=== PATIENT | male | born 1945 | race Caucasian/White ===

== ENCOUNTER 2017-01-15 07:51 | Emergency (ER) | payer MEDICARE, OTHER ==
[~2017-01-15] VITALS: Ht 162.6 cm; Wt 95.5 kg
[~2017-01-15 07:51] MED LIST: CARV80CP5 PO; CLON0.2T5 PO; LEVEM; NOV; PANT40TA3; PRAS10TA6; RAMI10TA
[2017-01-15] MEDS ORDERED: OXYMETAZOLINE 0.05% 15 ML NAS SPRAY NASAL ONE (08:00)
[2017-01-15 08:02] VITALS: Ht 162.6 cm; Wt 95.5 kg
[2017-01-15 08:42] LABS: BASOPHILS % 0.5 % (0.0-2.0); EOSINOPHILS # 0.1 10^3/ul (0.0-0.5); EOSINOPHILS % 2.2 % (0.0-7.0); HEMATOCRIT 40.6 % (42.0-52.0); HEMOGLOBIN 13.2 g/dl (14.0-18.0); LYMPHOCYTES # 1.5 10^3/ul (0.8-2.9); LYMPHOCYTES % 25.3 % (15.0-51.0); MEAN CORPUSCULAR HEMOGLOBIN 28.4 pg (29.0-33.0); MEAN CORPUSCULAR HGB CONC 32.5 g/dl (32.0-37.0); MEAN CORPUSCULAR VOLUME 87.3 fl (82.0-101.0); MEAN PLATELET VOLUME 11.6 fl (7.4-10.4); MONOCYTE # 0.5 10^3/ul (0.3-0.9); MONOCYTES % 8.1 % (0.0-11.0); NEUTROPHIL # 3.8 10^3/ul (1.6-7.5); NEUTROPHILS % 63.4 % (39.0-77.0); PLATELET COUNT 147 10^3/UL (140-415); RED BLOOD COUNT 4.65 10^6/ul (4.70-6.10); RED CELL DISTRIBUTION WIDTH 13.9 % (11.5-14.5)
[2017-01-15] MEDS ORDERED: hydrALAzine 20 MG INJ IV ONE (09:00)
[2017-01-15 09:05] LABS: ALBUMIN 3.8 g/dl (3.3-4.9); ALBUMIN/GLOBULIN RATIO 1.02; BILIRUBIN,INDIRECT 0.4 mg/dl (0-1.1); BILIRUBIN,TOTAL 0.4 mg/dl (0.2-1.3); CALCIUM 8.5 mg/dl (8.4-10.2); CREATININE 1.4 mg/dl (0.61-1.24); POTASSIUM 3.9 mmol/L (3.5-5.1); TOTAL PROTEIN 7.5 g/dl (6.1-8.1)
--- NOTE | 2017-01-15 09:06 | ERD ---
ER Documentation Chief Complaint Date/Time DATE: 01/15/17 TIME: 08:57 Chief Complaint NOSEBLEED X1 HOUR HPI This is a 72-year-old male with a history of hypertension and cardiac stents on Eliquis who presents to the emergency department complaining of a bilateral nosebleed that occurred 1 hour prior to arrival. The patient stated he awoke this morning and just prior to brushing his teeth was leaning forward and noticed a significant amount of bright red blood coming from his left nostril. He then stated shortly after he develop a small amount of blood from the right nostril. He denied any sensation of blood within his oropharynx. He states he has never had a history of epistaxis in the past. He denies any easy bruising or bleeding of his gums while brushing his teeth. He denies a headache or weakness. He has no chest pain or pressure that radiates to the neck or back or jaw. Indicates he did not take his antihypertensive medication yesterday as he manually took his blood pressure and it was normal with a systolic of 120/ 80. When he awoke this morning after the epistaxis occurred he took his blood pressure and his systolic blood pressure was elevated at 180. Any changes in vision dizziness or lightheadedness. He denies any hemoptysis hematemesis or melanotic stools. ROS All systems reviewed and are negative except as per history of present illness. Medications Home Meds Reported Medications Carvedilol* (Coreg CR*) 80 Mg Cpmp.24hr, 80 MG PO HS 07/20/11 Clonidine Hcl* (Clonidine Hcl*) 0.2 Mg Tablet, 0.2 MG PO BID Y 07/20/11 Insulin Aspart* (Novolog Insulin Vial*) 100 U/Ml Vial 10/14/10 Insulin Detemir* (Levemir*) 100 U/Ml Vial 10/14/10 Prasugrel Hydrochloride* (Effient*) 10 Mg Tablet 10/14/10 Pantoprazole* (Protonix*) 40 Mg Tablet. 10/14/10 Ramipril (Altace) 10 Mg Tablet 11/21/09 Allergies Allergies: Coded Allergies: No Known Allergy (Unverified , 07/20/11) PMhx/Soc History of Surgery: Yes (5stents.) Anesthesia Reaction: No Hx 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 Disorder: No Hx Respiratory Disorders: No Hx Cardiac Disorders: Yes (HTN, DE.) Hx Psychiatric Problems: No Hx Miscellaneous Medical Probl: Yes (NOSE BLEED) Hx Alcohol Use: No Hx Substance Use: No Hx Tobacco Use: No Smoking Status: Never smoker Physical Exam Vitals Vital Signs Date Time Temp Pulse Resp B/P Pulse Ox O2 Delivery O2 Flow Rate FiO2 01/15/17 09:07 64 16 176/92 96 01/15/17 08:02 98.2 65 16 191/95 96 Physical Exam Constitutional:Well-developed. Well-nourished. HEENT:Normocephalic. Atraumatic.Pupils were equal round reactive to light. Moist mucous membranes.No tonsillar exudates. No blood present within the posterior pharynx. Left epistaxis and no blood present within the right nostril. Neck: No nuchal rigidity. No lymphadenopathy. No posterior cervical spine tenderness or step-offs. Respiratory: Not using accessory muscles of respiration.Lungs were clear to auscultation bilaterally. No rhonchi. No rales. No wheezing. Cardiovascular: Regular rate regular rhythm.No murmurs. No rubs were appreciated.S1, S2 normal. Distal pulses are palpable 2+ bilaterally. GI: Abdomen was soft. Nontender. Non Distended. No pulsatile abdominal masses or bruits. No rebound. No guarding. Bowel sounds were present and normal. Muscle skeletal: Full range of motion of both the upper and lower extremities bilaterally.Normal muscle tone.No assymetrical calf tenderness or swelling. Skin: No petechia, no purpura. No lesions on the palms or the soles of the feet. No maculopapular rash. NEURO: Patient was alert, awake, orientated x3.No facial droop. Gait observed and normal with no ataxia.Speech had regular rate and rhythm. No focal neurological deficits. Result Diagram: 01/15/17 0815 01/15/17 0815 Results 24 hrs Laboratory Tests Test 01/15/17 08:15 White Blood Count 6.010^3/ul Red Blood Count 4.6510^6/ul Hemoglobin 13.2g/dl Hematocrit 40.6% Mean Corpuscular Volume 87.3fl Mean Corpuscular Hemoglobin 28.4pg Mean Corpuscular Hemoglobin Concent 32.5g/dl Red Cell Distribution Width 13.9% Platelet Count 91068^3/UL Mean Platelet Volume 11.6fl Neutrophils % 63.4% Lymphocytes % 25.3% Monocytes % 8.1% Eosinophils % 2.2% Basophils % 0.5% Nucleated Red Blood Cells % 0.0/100WBC Neutrophils # 3.810^3/ul Lymphocytes # 1.510^3/ul Monocytes # 0.510^3/ul Eosinophils # 0.110^3/ul Basophils # 0.010^3/ul Nucleated Red Blood Cells # 0.010^3/ul Sodium Level 141mmol/L Potassium Level 3.9mmol/L Chloride Level 104mmol/L Carbon Dioxide Level 29mmol/L Anion Gap 12 Blood Urea Nitrogen 19mg/dl Creatinine 1.40mg/dl Glucose Level 171mg/dl Calcium Level 8.5mg/dl Total Bilirubin 0.4mg/dl Direct Bilirubin 0.00mg/dl Indirect Bilirubin 0.4mg/dl Aspartate Amino Transf (AST/SGOT) 25IU/L Alanine Aminotransferase (ALT/SGPT) 34IU/L Alkaline Phosphatase 73IU/L Total Protein 7.5g/dl Albumin 3.8g/dl Globulin 3.70g/dl Albumin/Globulin Ratio 1.02 Current Medications Medications (Trade) Dose Ordered Sig/Luis Route PRN Reason Start Time Stop Time Status Last Admin Dose Admin Oxymetazoline HCl (Afrin [place]) 2 spray ONCE ONCE NASAL 01/15/17 08:00 01/15/17 08:01 DC 01/15/17 08:30 Hydralazine HCl (Apresoline) 10 mg ONCE ONCE IV 01/15/17 09:00 01/15/17 09:01 DC 01/15/17 09:11 Procedures/MDM Patient presented to the emergency department physical exam findings suggestive of anterior unilateral epistaxis. Afrin nasal spray was used as a vasoconstrictor and an anterior Rhino Rocket was placed into the left nostril. The epistaxis resolved. There is no blood present within the posterior pharynx. This patient presented to the emergency department with severely elevated blood pressure. My differential diagnosis included but was not limited to conditions that could end-organ damage such as acute coronary syndrome, acute pulmonary edema, aortic dissection, subarachnoid hemorrhage, intracerebral hemorrhage, cerebral infarction, withdrawal syndromes from beta blockers, or states of catecholamine excess such as pheochromocytoma or drug intoxication. Ancillary lab work was obtained. There was no elevation in the BUN and creatinine to suggest acute renal failure. Electrolytes were normal. Given that the patient had an absence of cerebral, ocular, cardiac or renal damage the hypertensive urgency was treated with IV agents in the emergency room with improvement of the patient's blood pressure. The patient likely appeared to be complaint with primary care physician and will follow up with their PCP in the next 24-48 hours. They were instructed to return to the emergency department at anytime if there is any worsening of their condition such as development of chest pain or a headache. They were instructed to resume previous medication regimen or initiate a suitable medication regimen under care of the PCP to enable proper monitoring for drug reactions. The patient was also informed on the adverse side effects and adverse drug interactions of the medications prescribed to them by myself. The patient gave informed consent to the prescription of the new medication. The patient's PCP Dr. Cha who kindly stated he will follow-up with the patient in this. Departure Diagnosis: Primary Impression: Epistaxis Additional Impression: Hypertensive urgency Condition: JENNIFER Caruso Jan 15, 2017 09:06
[2017-01-15 09:43] LABS: INR 1.02; PROTIME 13.4 Sec (12.2-14.2)
[2017-01-15 09:44] LABS: PARTIAL THROMBOPLASTIN TIME 26.3 Sec (25.0-35.0)
[2017-01-15 11:26] VITALS: BP 149/75; PULSE 60; RESP 18
== END 2017-01-15 12:22 | disposition home or self-care (01) ==
LOC: E/R 07:51
DX: R04.0 Epistaxis (principal); I16.0 Hypertensive urgency; I10 Essential (primary) hypertension; Z79.4 Long term (current) use of insulin; Z98.61 Coronary angioplasty status
CPT/HCPCS: 80053; 85025; 85610; 85730; 96374; 99284; J0360

== ENCOUNTER 2018-08-11 06:49 | Inpatient (IN) | payer MEDICARE, OTHER ==
[~2018-08-11] VITALS: Ht 165.1 cm; Wt 114.8 kg
[2018-08-11] VITALS (21 sets, daily range): BP systolic 138–182; BP diastolic 67–141; PULSE 63–76; RESP 14–25; Ht 165.1 cm; Wt 114.8 kg
[~2018-08-11 06:49] MED LIST changes: -CARV80CP5 PO; +[UNRECOGNIZED DRUG - CODE] PO
[2018-08-11] MEDS ORDERED: AMLO5TAB4 PO (08:03)
[2018-08-11] MEDS ORDERED: ROSU40TA35 PO (08:03)
[2018-08-11] MEDS ORDERED: APIX5TAB PO (08:04)
[2018-08-11] MEDS ORDERED: [UNRECOGNIZED DRUG - CODE] PO (08:04)
[2018-08-11] MEDS ORDERED: CLON-379 PO (08:04)
[2018-08-11] MEDS ORDERED: POTA10TA37 PO (08:05)
[2018-08-11] MEDS ORDERED: ASPI81TA52 PO (08:05)
[2018-08-11] MEDS ORDERED: FURO40TA4 PO (08:05)
[2018-08-11] MEDS ORDERED: INSU100I27 SQ (08:06)
[2018-08-11] MEDS ORDERED: NOVO3I SC (08:07)
[2018-08-11] MEDS ORDERED: LIDOCAINE 1% (MDV) 20 ML INJ ONE (08:25)
[2018-08-11] MEDS ORDERED: IODIXANOL LOCM 100 ML BTL ONE (08:25)
[2018-08-11] MEDS ORDERED: HEPARIN 1000 UNITS/ML 10 ML INJ ONE (08:25)
[2018-08-11] MEDS ORDERED: FENTAnyl 50 MCG/ML VIAL ONE ×2 (08:26→08:27)
[2018-08-11] MEDS ORDERED: MIDAZOLAM 1 MG/ML 2 ML INJ ONE (08:27)
[2018-08-11] MEDS ORDERED: VERAPAMIL 5 MG INJ ONE (08:29)
[2018-08-11] MEDS ORDERED: NITROGLYCERIN (IC) 100 MCG/ML INJ ONE (08:30)
[2018-08-11] MEDS ORDERED: hydrALAzine 20 MG INJ ONE (08:30)
--- NOTE | 2018-08-11 09:21 | OPR ---
Date/Time of Note Date/Time of Note DATE: 08/11/18 TIME: 09:20 Operative Report Procedure Date: Aug 11, 2018 Preoperative Diagnosis dyspnea, CHF, abnormal stress test Postoperative Diagnosis same. 3 vessel CAD Operation/Procedure Performed see details Surgeon see signature line Tool And Die Maker Level Five none Anesthesia Type: moderate sedation Estimated Blood Loss: minimal Transfusion none Specimen none Grafts/Implants none Complications none Procedure Description Procedure Date:08/11/18 Youth Teacher/surgeon:Jeramie Vela MD. Procedures Performed: 1)Left heart catheterization with selective left and right coronary angiography. Pre-operative Diagnosis:dyspnea, CHF, abnormal Lexiscan Post-operative Diagnosis: same, three vessel CAD Indications: 73 yo M with a h/o CAD s/p multiple prior PCIs, chronic diastolic CHF, recent left femoral DVT on Eliquis, CKD (baseline Cr 1.6), DM, HTN,HL, who has been having exertional dyspnea and recurrent CHF exacerbations. Lexiscan showed mild anterior and inferolateral ischemia but also TID for which cardiac cath was discussed and pt/family agreeable. Description of Procedure: After informed consent, the patient was brought to the cardiac catheterization lab. The procedure site was prepped and draped in usual manner. The patient was premedicated with versed 1mg. 3 mL lidocaine was injected into the right wrist. Next using the posterior wall technique, the 6/5 solomon islander sheath was inserted into the right radial artery. Next using the JL3.5 and JR4, selective angiography of the left and right coronary arteries were obtained. The pigtail was then advanced into the ventricle and hemodynamics obtained. Left ventricle angiography was not obtained. Next all equipment was removed and hemostasis was obtained by TR band. Findings: Anatomy/Hemodynamics: Left main:ostial 30-40% LAD: long prox to mid stent with mid 90% ISR, immediately after stent 50% Diagonal: 2 small diagonals both very small and with severe diffuse disease Circumflex: prox long 70% Obtuse marginal:luminal irregularities Ramus: prox tandem 70% lesions RCA:prox 40% followed by patent prox stent followed by mid 70-80% PDA: prox long 60% PLV:bifurcating vessel with lower branch ostial 99% LV angiography:not done LV-Ao: no gradient LVEDP:30 mmHg Contrast used:60 mL Fluoroscopy time: 5.2 min Estimated blood loss<10 mL. Specimen: none Grafts/implants: none Complications: none Assessment: CAD: s/p multiple prior PCIs. Cath 08/11/18 with multivessel disease which would be most appropriate for CABG eval in setting of DM Acute on chronic diastolic CHF: still mildly overloaded on exam and by EDP Recent left femoral DVT: on Eliquis as outpt. Held for procedure. Will give lovenox in the interim CKD (baseline Cr 1.6) DM HT HL Plan: -admit for inpt CABG eval -ASA -hold Eliquis, start lovenox 1mg/kg daily with CKD -lipitor 40mg -coreg cr 40mg -amlodipine 5mg -lasix 20mg IV x1, then 40mg PO daily JERAMIE VELA Aug 11, 2018 09:21
[2018-08-11] MEDS ORDERED: FUROSEMIDE 20 MG INJ IV ONE (12:00)
[2018-08-11] MEDS ORDERED: hydrALAzine 20 MG INJ IV PRN (12:00)
[2018-08-11] MEDS: AMLODIPINE 5 MG TAB PO SCH (13:17)
[2018-08-11] MEDS: ASPIRIN 81 MG TAB PO SCH (13:17)
[2018-08-11] MEDS ORDERED: NACL 0.9% 3 ML SYG IV SCH (14:00)
[2018-08-11] MEDS: ENOXAPARIN 60 MG/0.6 ML SYG SC SCH (15:00)
--- NOTE | 2018-08-11 15:29 | HP ---
Date/Time of Note Date/Time of Note DATE: 08/11/18 TIME: 15:20 Assessment/Plan VTE Prophylaxis SCD applied (from Nsg): Yes SCD contraindicated: DVT Pharmacological prophylaxis: LMWH Lines/Catheters IV Catheter Type (from Nrsg): Peripheral IV Central line still needed: No Urinary Cath still in place: No Reason Cath still needed: urinary retention Assessment/Plan Assessment/Plan 1. Ischemic heart disease angina three-vessel coronary artery disease planned CABG. 2. Hypertension with congestive heart failure diastolic. 3. Diabetes mellitus type 2 blood sugar better controlled. On to receive a 20 units 11 PM NovoLog 15-20 units before each meal. 4. History of whole cystitis and pancreatitis 5. Chronic kidney disease with baseline creatinine being 1.6 there was a number of being also 1.8 after having the diarrhea. 6. Dyslipidemia better controlled 7. History of nasal bleeding recurrent 8. Morbid obesity with snoring and apnea and daytime sleepiness 9. BPH with nocturia 10. Low back pain with radiculopathy 11. 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 Status post cataract ectomy 13. Diabetic nephropathy retinopathy and angiopathy and neuropathy. 14. Constipation 15. Grief reaction after the of her 16. Gastroesophageal reflux disease 17. Deep venous thrombosis of the left saphenous vein, 2-3 months ago; currently on Eliquis 5 mg twice daily 18. Gastritis 19. COPD. Quit smoking 6 years ago. 20. History of nephrolithiasis. Result Diagram: 08/11/18 0730 08/11/18 0730 Results 24hrs Laboratory Tests Test 08/11/18 07:30 08/11/18 07:33 White Blood Count 6.4 Red Blood Count 4.51 L Hemoglobin 12.9 L Hematocrit 40.7 L Mean Corpuscular Volume 90.2 Mean Corpuscular Hemoglobin 28.6 L Mean Corpuscular Hemoglobin Concent 31.7 L Red Cell Distribution Width 14.6 H Platelet Count 137 L Mean Platelet Volume 11.7 H Immature Granulocytes % 0.500 H Neutrophils % 62.9 Lymphocytes % 24.3 Monocytes % 8.3 Eosinophils % 3.5 Basophils % 0.5 Nucleated Red Blood Cells % 0.0 Immature Granulocytes # 0.030 Neutrophils # 4.0 Lymphocytes # 1.5 Monocytes # 0.5 Eosinophils # 0.2 Basophils # 0.0 Nucleated Red Blood Cells # 0.0 Prothrombin Time 13.1 Prothrombin Time Ratio 1.0 INR International Normalized Ratio 0.98 Activated Partial Thromboplast Time 25.3 Sodium Level 144 Potassium Level 4.5 Chloride Level 105 Carbon Dioxide Level 29 Anion Gap 10 Blood Urea Nitrogen 24 H Creatinine 1.65 H Est Glomerular Filtrat Rate mL/min Glucose Level 134 Calcium Level 9.2 Bedside Glucose 120 HPI/ROS Admit Date/Time Admit Date/Time Aug 11, 2018 at 09:20 Hx of Present Illness The patient known to me with outpatient visits underwent cardiac workup. Patient was found to have severe coronary artery disease three-vessel plan to undergo CABG. now he is also congested with mild elevation of her creatinine 1.6. ROS Constitutional: nausea, weight change; No no complaints, No improved, No chills, No diaphoresis, No disoriented, No fatigue, No febrile, No poor po, No other Eyes: No no complaints, No pain, No discharge, No redness, No visual change, No other ENT: No no complaints, No bleeding, No pain, No congestion, No discharge, No dysphagia, No sore throat, No other Respiratory: cough, shortness of breath; No no complaints, No pain, No pleuritic pain, No sputum, No wheezing, No other Cardiovascular: edema, lightheadedness, orthopenea, palpitations; No no complaints, No chest pain, No paroxysmal nocturnal dyspnea, No other Gastrointestinal: constipation, passing stool; No no complaints, No pain, No blood, No decreased appetite, No diarrhea, No flatus, No nausea, No vomiting, No other Genitourinary: dysuria; No no complaints, No bleeding, No discharge, No flank pain, No hematuria, No other Musculoskeletal: back pain, bone/joint pain, neck pain; No no complaints, No restricted range of motion, No swelling, No other Skin: No no complaints, No bruising, No erythema, No laceration, No pruritis, No rash, No skin lesions, No other Neurologic: headache; No no complaints, No confusion, No dizziness, No focal-weakness, No syncope, No seizure, No other Endocrine: polyuria, polydypsia, dry skin; No no complaints, No temp intolerance, No weight change, No other Lymphatic: No no complaints, No adenopathy, No tender nodes, No lymphadema, No other Psychological: anxiety; No no complaints, No nl mood/affect, No confusion, No depression, No suicidal, No other Immunologic: No no complaints, No immunodeficiency, No pruritis, No rhinitis, No urticaria, No other PMH/Family/Social Past Medical History Medical History: angina, congestive heart failure, coronary artery disease, deep vein thrombosis, diabetes, diverticulitis, gallstones, GERD, high cholesterol, hypertension, pancreatitis, renal disease, urinary tract infection Medications Current Medications Carvedilol (Coreg Cr) 40 mg DAILY PO ; Start 08/12/18 at 09:00 Amlodipine Besylate (Norvasc) 5 mg DAILY PO Last administered on 08/11/18at 13:17; Admin Dose 5 MG; Start 08/11/18 at 13:00 Aspirin (Aspirin) 81 mg DAILY PO Last administered on 08/11/18at 13:17; Admin Dose 81 MG; Start 08/11/18 at 13:00 Enoxaparin Sodium (Lovenox) 115 mg Q24H SC ; Start 08/11/18 at 12:00 Atorvastatin Calcium (Lipitor) 40 mg HS PO ; Start 08/11/18 at 21:00 Hydralazine HCl (Apresoline) 10 mg Q4H PRN IV SBP >170; Start 08/11/18 at 12:00 Furosemide (Lasix) 40 mg DAILY PO ; Start 08/12/18 at 09:00 Coded Allergies: No Known Allergy (Unverified , 08/11/18) Past Surgical History Past Surgical Hx: angioplasty (2003 and 2010.), endoscopy Family History Significant Family History: COPD, diabetes, hypertension Social History Alcohol Use: rarely Smoking Status: Never smoker Drug Use: none Exam/Review of Systems Vital Signs Vitals Vital Signs Date Temp Pulse Resp B/P (MAP) Pulse Ox O2 O2 Flow FiO2 Time Delivery Rate 08/11/18 97.4 64 16 160/75 98 Room Air 07:53 (103) Exam Constitutional: alert, oriented, well developed, frail Psych: nl mood/affect, anxiety, depression (History of.); No no complaints, No confusion, No suicidal, No other Head: No normocephalic, No atraumatic, No lacerations, No hematomas, No other Eyes: nl conjunctiva, EOMI, nl lids, PERRL, icteric, fundi, disc, other (Status post cataract ectomy changes bilaterally with mild periorbital edema.) ENMT: No nl external ears & nose, No nl lips & teeth, No nl nasal mucosa & septum, No mucosa pink and moist, No intubated, No tympanic membranes, No other Neck: jvd, thyromegaly, nuchal rigidity; No supple, No non-tender, No bruits, No masses, No other Respiratory: clear to auscultation, normal air movement; No congested cough, No crackles/rales, No diminished breath sounds, No intercostal retraction, No labored breathing, No respirations, No tactile fremitus, No wheezing, No other Cardiovascular: regular rate and rhythm, nl pulses, edema (2+ bilaterally.), jugular venous distention (JVD); No bruits, No diastolic murmur, No gallop, No irregular rhythm, No murmurs/extra sounds, No rub, No systolic murmur, No S3, No S4, No other Gastrointestinal: soft, nl liver, spleen, bowel sounds, distended, rebound or guarding, other (Palpation reveals subcutaneous hardness possible effect of insulin injection and or subcutaneous lipomas that are painless no erythema.); No non-tender, No ascites, No firm, No hepatomegaly, No mass, No splenomegaly, No surgical scars, No tender Genitourinary - Male: nl penis, nl scrotum; No CVA tenderness, No discharge, No other Genitourinary - Female: No nl adnexae, No nl external genitalia, No CMT, No CVA tenderness, No uterus, No other Musculoskeletal: nl gait and stance, joint tenderness, muscle tone, muscle weakness; No nl extremities to inspection, No range of motion, No spine non-tender, No swelling, No other Extremities: normal pulses, edema; No calf tenderness, No cyanosis, No clubbing, No pitting pedal edema, No palpable cord, No tenderness, No other 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: CORPORATE CONTROLLER II-XII intact, numbness; No nl mental status, No nl speech, No nl strength, No confused, No DTR's symmetric, No focal weakness, No lethargic, No reflexes, No unresponsive, No other Skin: nl turgor; No rash or lesions, No diaphoresis, No ecchymosis, No laceration, No puncture, No other Lymph: nl lymph nodes; No enlarged, No nontender, No other NERIS BROTHERS MD Aug 11, 2018 15:29
--- NOTE | 2018-08-11 15:47 | CONS ---
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 I explained to him the risks, benefits and alternatives of surgery. The risks are but not limited to bleeding, infection, stroke, IA, renal and respiratory failure and . His STS risks of mortality is around 2%. I will order carotids and plan for surgery Saturday if creatinine stable. Consultation Date/Type/Reason Admit Date/Time Aug 11, 2018 at 09:20 Date of Consultation: Aug 11, [address] surgery Reason for Consultation eval for cabg Requesting Provider: ALONDRA GILBERT Date/Time of Note DATE: 08/11/18 TIME: 15:40 Hx of Present Illness 73 year old male with history of CAD previous PCI and stenting, DM, HTN underwent cath for progressive dyspnea. His cath shows 3V CAD with in stent stenosis. He denies palpitations or chest pressure. He can only walk 50 ft before having to rest and then his dyspnea goes away. Constitutional: no complaints, improved Eyes: no complaints ENT: no complaints Respiratory: shortness of breath Cardiovascular: paroxysmal nocturnal dyspnea Gastrointestinal: no complaints Genitourinary: no complaints Musculoskeletal: no complaints Skin: no complaints Neurologic: no complaints Endocrine: no complaints Lymphatic: no complaints Psychological: no complaints, nl mood/affect Immunologic: no complaints Past Medical History Medical History: angina, congestive heart failure, coronary artery disease, deep vein thrombosis, diabetes, diverticulitis, gallstones, GERD, high cholesterol, hypertension, pancreatitis, renal disease, urinary tract infection Home Meds Reported Medications Insulin Aspart* (Novolog Insulin Pen*) 100 Unit/Ml Soln, 0 SC .SLIDING SCALE AC, EA AC MEALS 08/11/18 Insulin Detemir (Levemir Flextouch) 100 Unit/1 Ml Insuln.pen, 25 UNIT SQ QHS, EA 08/11/18 Potassium Chloride* (K-Dur*) 10 Meq Tab.prt.sr, 10 MEQ PO DAILY, TAB 08/11/18 Furosemide* (Furosemide*) 40 Mg Tablet, 40 MG PO DAILY, TAB 08/11/18 Aspirin (Low Dose Aspirin) 81 Mg Tablet.dr, 81 MG PO DAILY, #30 TAB 08/11/18 Apixaban* (Eliquis*) 5 Mg Tablet, 5 MG PO BID, TAB 08/11/18 Clonidine Hcl* (Clonidine Hcl*) 0.1 Mg Tab, 0.1 MG PO DAILY PRN for ELEVATED BLOOD PRESSURE, TAB 08/11/18 Carvedilol* (Coreg CR*) 40 Mg Capsr, 40 MG PO DAILY, #30 CAP 08/11/18 Rosuvastatin Calcium* (Crestor*) 40 Mg Tablet, 40 MG PO QHS, #30 TAB 08/11/18 Amlodipine Besylate* (Norvasc*) 5 Mg Tablet, 5 MG PO DAILY, TAB 08/11/18 Discontinued Reported Medications Carvedilol* (Coreg CR*) 80 Mg Cpmp.24hr, 80 MG PO HS 07/20/11 Clonidine Hcl* (Clonidine Hcl*) 0.2 Mg Tablet, 0.2 MG PO BID PRN 07/20/11 Insulin Aspart* (Novolog Insulin Vial*) 100 U/Ml Vial 10/14/10 Insulin Detemir* (Levemir*) 100 U/Ml Vial 10/14/10 Prasugrel Hydrochloride* (Effient*) 10 Mg Tablet 10/14/10 Pantoprazole* (Protonix*) 40 Mg Tablet. 10/14/10 Ramipril (Altace) 10 Mg Tablet 11/21/09 Medications Current Medications Carvedilol (Coreg Cr) 40 mg DAILY PO ; Start 08/12/18 at 09:00 Amlodipine Besylate (Norvasc) 5 mg DAILY PO Last administered on 08/11/18at 13:17; Admin Dose 5 MG; Start 08/11/18 at 13:00 Aspirin (Aspirin) 81 mg DAILY PO Last administered on 08/11/18at 13:17; Admin Dose 81 MG; Start 08/11/18 at 13:00 Enoxaparin Sodium (Lovenox) 115 mg Q24H SC ; Start 08/11/18 at 12:00 Atorvastatin Calcium (Lipitor) 40 mg HS PO ; Start 08/11/18 at 21:00 Hydralazine HCl (Apresoline) 10 mg Q4H PRN IV SBP >170; Start 08/11/18 at 12:00 Furosemide (Lasix) 40 mg DAILY PO ; Start 08/12/18 at 09:00 Allergies: Coded Allergies: No Known Allergy (Unverified , 08/11/18) Past Surgical History Past Surgical Hx: angioplasty (2003 and 2010.), endoscopy Family History Significant Family History: no pertinent family hx Social History Alcohol Use: rarely Smoking Status: Never smoker Drug Use: none Exam/Review of Systems Exam Vitals Vital Signs Date Temp Pulse Resp B/P (MAP) Pulse Ox O2 O2 Flow FiO2 Time Delivery Rate 08/11/18 97.4 64 16 160/75 98 Room Air 07:53 (103) Constitutional: alert, oriented, well developed Psych: no complaints, nl mood/affect Head: normocephalic, atraumatic Eyes: nl conjunctiva, EOMI, nl lids, nl sclera, PERRL ENMT: nl external ears & nose, nl lips & teeth, nl nasal mucosa & septum Neck: supple, non-tender Cardiovascular: regular rate and rhythm, nl pulses Gastrointestinal: soft, nl liver, spleen, non-tender Musculoskeletal: nl extremities to inspection, nl gait and stance Extremities: normal pulses Skin: nl turgor; No rash or lesions Lymph: nl lymph nodes Results Result Diagram: 08/11/18 0730 08/11/18 0730 Results 24hrs Laboratory Tests Test 08/11/18 07:30 08/11/18 07:33 White Blood Count 6.4 Red Blood Count 4.51 L Hemoglobin 12.9 L Hematocrit 40.7 L Mean Corpuscular Volume 90.2 Mean Corpuscular Hemoglobin 28.6 L Mean Corpuscular Hemoglobin Concent 31.7 L Red Cell Distribution Width 14.6 H Platelet Count 137 L Mean Platelet Volume 11.7 H Immature Granulocytes % 0.500 H Neutrophils % 62.9 Lymphocytes % 24.3 Monocytes % 8.3 Eosinophils % 3.5 Basophils % 0.5 Nucleated Red Blood Cells % 0.0 Immature Granulocytes # 0.030 Neutrophils # 4.0 Lymphocytes # 1.5 Monocytes # 0.5 Eosinophils # 0.2 Basophils # 0.0 Nucleated Red Blood Cells # 0.0 Prothrombin Time 13.1 Prothrombin Time Ratio 1.0 INR International Normalized Ratio 0.98 Activated Partial Thromboplast Time 25.3 Sodium Level 144 Potassium Level 4.5 Chloride Level 105 Carbon Dioxide Level 29 Anion Gap 10 Blood Urea Nitrogen 24 H Creatinine 1.65 H Est Glomerular Filtrat Rate mL/min Glucose Level 134 Calcium Level 9.2 Bedside Glucose 120 Medications Medication Current Medications Carvedilol (Coreg Cr) 40 mg DAILY PO ; Start 08/12/18 at 09:00 Amlodipine Besylate (Norvasc) 5 mg DAILY PO Last administered on 08/11/18at 13:17; Admin Dose 5 MG; Start 08/11/18 at 13:00 Aspirin (Aspirin) 81 mg DAILY PO Last administered on 08/11/18at 13:17; Admin Dose 81 MG; Start 08/11/18 at 13:00 Enoxaparin Sodium (Lovenox) 115 mg Q24H SC ; Start 08/11/18 at 12:00 Atorvastatin Calcium (Lipitor) 40 mg HS PO ; Start 08/11/18 at 21:00 Hydralazine HCl (Apresoline) 10 mg Q4H PRN IV SBP >170; Start 08/11/18 at 12:00 Furosemide (Lasix) 40 mg DAILY PO ; Start 08/12/18 at 09:00 LESIA DANIELLE MD Aug 11, 2018 15:47
[2018-08-11] MEDS ORDERED: CEFAZOLIN 2 GM/50 ML (PMX) 50 ML IVPB ONE (16:00)
--- NOTE | 2018-08-11 18:00 | CONS ---
Assessment/Plan Assessment/Plan Assessment/Plan (Daily) 1. acute kidney injury vs possible baseline CKD II with Cr 1.65 2. 3 V CAD- plan for CABG 3. H/o HTN 4. H/o HL 5. H/o DM II 6. H/o CAD with previous stent placement Plan: pt is admitted to iCU stop IV lasix diuresis, Cr 1.65- with CKD stage II Plan for CABG as per CT surgery as per ACTS- pt has a risk of <1% SOCORRO requiring renal placement therapy - ok to have CT surgery , we will closely monitor his renal function thanks Dr. Estrada for consultation, I will continue to follow up along with Cardiology, CT surgery and PMD service Consultation Date/Type/Reason Admit Date/Time Aug 11, 2018 at 09:20 Date of Consultation: Aug 11, 2018 Type of Consult NEPHROLOGY Reason for Consultation Acute kidney injury Requesting Provider: NERIS BROTHERS MD Date/Time of Note DATE: 08/11/18 TIME: 17:58 Hx of Present Illness 73 M with PMHx of HTN< HL< who was found to have 3 V CAD on CATH and planned to have CABG, he is noted to have Cr 1.65 with BUN 45- Renal has been consulted for SOCORRO on CKD vs SOCORRO. no H/o kidney stone, , no h/o Kidney disease as per patient, BP stable, no family h/o CKD Eyes: no complaints ENT: no complaints Respiratory: no complaints Cardiovascular: chest pain Gastrointestinal: no complaints Genitourinary: no complaints Musculoskeletal: no complaints Skin: no complaints Neurologic: no complaints Endocrine: no complaints Lymphatic: no complaints Psychological: no complaints Immunologic: no complaints Past Medical History Medical History: angina, congestive heart failure, coronary artery disease, deep vein thrombosis, diabetes, diverticulitis, gallstones, GERD, high cholesterol, hypertension, pancreatitis, renal disease, urinary tract infection Home Meds Reported Medications Insulin Aspart* (Novolog Insulin Pen*) 100 Unit/Ml Soln, 0 SC .SLIDING SCALE AC, EA AC MEALS 08/11/18 Insulin Detemir (Levemir Flextouch) 100 Unit/1 Ml Insuln.pen, 25 UNIT SQ QHS, EA 08/11/18 Potassium Chloride* (K-Dur*) 10 Meq Tab.prt.sr, 10 MEQ PO DAILY, TAB 08/11/18 Furosemide* (Furosemide*) 40 Mg Tablet, 40 MG PO DAILY, TAB 08/11/18 Aspirin (Low Dose Aspirin) 81 Mg Tablet., 81 MG PO DAILY, #30 TAB 08/11/18 Apixaban* (Eliquis*) 5 Mg Tablet, 5 MG PO BID, TAB 08/11/18 Clonidine Hcl* (Clonidine Hcl*) 0.1 Mg Tab, 0.1 MG PO DAILY PRN for ELEVATED BLOOD PRESSURE, TAB 08/11/18 Carvedilol* (Coreg CR*) 40 Mg Capsr, 40 MG PO DAILY, #30 CAP 08/11/18 Rosuvastatin Calcium* (Crestor*) 40 Mg Tablet, 40 MG PO QHS, #30 TAB 08/11/18 Amlodipine Besylate* (Norvasc*) 5 Mg Tablet, 5 MG PO DAILY, TAB 08/11/18 Discontinued Reported Medications Carvedilol* (Coreg CR*) 80 Mg Cpmp.24hr, 80 MG PO HS 07/20/11 Clonidine Hcl* (Clonidine Hcl*) 0.2 Mg Tablet, 0.2 MG PO BID PRN 07/20/11 Insulin Aspart* (Novolog Insulin Vial*) 100 U/Ml Vial 10/14/10 Insulin Detemir* (Levemir*) 100 U/Ml Vial 10/14/10 Prasugrel Hydrochloride* (Effient*) 10 Mg Tablet 10/14/10 Pantoprazole* (Protonix*) 40 Mg Tablet. 10/14/10 Ramipril (Altace) 10 Mg Tablet 11/21/09 Medications Current Medications Carvedilol (Coreg Cr) 40 mg DAILY PO ; Start 08/12/18 at 09:00 Amlodipine Besylate (Norvasc) 5 mg DAILY PO Last administered on 08/11/18at 13:17; Admin Dose 5 MG; Start 08/11/18 at 13:00 Aspirin (Aspirin) 81 mg DAILY PO Last administered on 08/11/18at 13:17; Admin Dose 81 MG; Start 08/11/18 at 13:00 Enoxaparin Sodium (Lovenox) 115 mg Q24H SC Last administered on 08/11/18at 15:00; Admin Dose 115 MG; Start 08/11/18 at 12:00 Atorvastatin Calcium (Lipitor) 40 mg HS PO ; Start 08/11/18 at 21:00 Hydralazine HCl (Apresoline) 10 mg Q4H PRN IV SBP >170; Start 08/11/18 at 12:00 Furosemide (Lasix) 40 mg DAILY PO ; Start 08/12/18 at 09:00 Allergies: Coded Allergies: No Known Allergy (Unverified , 08/11/18) Past Surgical History Past Surgical Hx: angioplasty (2003 and 2010.), endoscopy Social History Alcohol Use: rarely Smoking Status: Never smoker Drug Use: none Exam/Review of Systems Exam Vitals Vital Signs Date Temp Pulse Resp B/P (MAP) Pulse Ox O2 O2 Flow FiO2 Time Delivery Rate 08/11/18 69 16:00 08/11/18 97.4 16 160/75 98 Room Air 07:53 (103) Constitutional: alert Psych: no complaints Head: normocephalic Eyes: nl conjunctiva ENMT: nl external ears & nose Neck: supple Respiratory: clear to auscultation, normal air movement, diminished breath sounds Cardiovascular: regular rate and rhythm, nl pulses Gastrointestinal: soft, non-tender Musculoskeletal: nl extremities to inspection Extremities: normal pulses 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, nl mental status, nl speech, nl strength Skin: nl turgor Lymph: nl lymph nodes Results Result Diagram: 08/11/18 0730 08/11/18 0730 Results 24hrs Laboratory Tests Test 08/11/18 07:30 08/11/18 07:33 White Blood Count 6.4 Red Blood Count 4.51 L Hemoglobin 12.9 L Hematocrit 40.7 L Mean Corpuscular Volume 90.2 Mean Corpuscular Hemoglobin 28.6 L Mean Corpuscular Hemoglobin Concent 31.7 L Red Cell Distribution Width 14.6 H Platelet Count 137 L Mean Platelet Volume 11.7 H Immature Granulocytes % 0.500 H Neutrophils % 62.9 Lymphocytes % 24.3 Monocytes % 8.3 Eosinophils % 3.5 Basophils % 0.5 Nucleated Red Blood Cells % 0.0 Immature Granulocytes # 0.030 Neutrophils # 4.0 Lymphocytes # 1.5 Monocytes # 0.5 Eosinophils # 0.2 Basophils # 0.0 Nucleated Red Blood Cells # 0.0 Prothrombin Time 13.1 Prothrombin Time Ratio 1.0 INR International Normalized Ratio 0.98 Activated Partial Thromboplast Time 25.3 Sodium Level 144 Potassium Level 4.5 Chloride Level 105 Carbon Dioxide Level 29 Anion Gap 10 Blood Urea Nitrogen 24 H Creatinine 1.65 H Est Glomerular Filtrat Rate mL/min Glucose Level 134 Calcium Level 9.2 Bedside Glucose 120 Medications Medication Current Medications Carvedilol (Coreg Cr) 40 mg DAILY PO ; Start 08/12/18 at 09:00 Amlodipine Besylate (Norvasc) 5 mg DAILY PO Last administered on 08/11/18at 13:17; Admin Dose 5 MG; Start 08/11/18 at 13:00 Aspirin (Aspirin) 81 mg DAILY PO Last administered on 08/11/18at 13:17; Admin Dose 81 MG; Start 08/11/18 at 13:00 Enoxaparin Sodium (Lovenox) 115 mg Q24H SC Last administered on 08/11/18at 15:00; Admin Dose 115 MG; Start 08/11/18 at 12:00 Atorvastatin Calcium (Lipitor) 40 mg HS PO ; Start 08/11/18 at 21:00 Hydralazine HCl (Apresoline) 10 mg Q4H PRN IV SBP >170; Start 08/11/18 at 12:00 Furosemide (Lasix) 40 mg DAILY PO ; Start 08/12/18 at 09:00 DARRYL SOOD MD Aug 11, 2018 18:00
[2018-08-11] MEDS ORDERED: GLUCAGON 1 MG INJ IM PRN (18:30)
[2018-08-11] MEDS ORDERED: GLUCOSE GEL 15 GRAM TUBE BUCCAL PRN (18:30)
[2018-08-11] MEDS ORDERED: GLUCOSE GEL 15 GRAM TUBE PO PRN ×2 (18:30)
[2018-08-11] MEDS ORDERED: DEXTROSE 50% 50 ML SYRINGE IV PRN ×2 (18:30)
[2018-08-11] MEDS: FUROSEMIDE 20 MG INJ IV SCH (19:03)
[2018-08-11] MEDS ORDERED: INSULIN GLARGINE [LANTus] (100 UNITS/ML) SYG SC SCH (20:00)
[2018-08-11] MEDS: ATORVASTATIN 40 MG TAB PO SCH (20:53)
[2018-08-12] VITALS (46 sets, daily range): BP systolic 132–182; BP diastolic 62–123; PULSE 63–81; RESP 12–25
[2018-08-12] MEDS: ALBUTEROL/IPRATROPIUM (NEB) 3 ML AMP HHN SCH ×3 (00:25→16:15)
[2018-08-12] MEDS: ACCU-CHEK XX SCH (02:00)
[2018-08-12] MEDS: FUROSEMIDE 20 MG INJ IV SCH (05:32)
--- NOTE | 2018-08-12 08:09 | CONS ---
Assessment/Plan Assessment/Plan Hospital Course (Demo Recall) CAD: s/p multiple prior PCIs. Cath 08/11/18 with multivessel disease. Plan for CABG Acute on chronic diastolic CHF: Diuresed on admission and now euvolemic on my exam Recent left femoral DVT: on Eliquis as outpt. Held for procedure. Will give lovenox in the interim CKD (baseline Cr 1.6. Stable so far DM HT HL -await CABG tomorrow -d/c further lasix for now as euvolemic and to avoid renal dysfunction prior to surgery. Will decide on dosing after surgery -ASA -hold Eliquis, lovenox 1mg/kg daily with CKD -lipitor 40mg -coreg cr 40mg -amlodipine 5mg Consultation Date/Type/Reason Admit Date/Time Aug 11, 2018 at 09:20 Initial Consult Date 08/11/18 Type of Consult Cardiology Requesting Provider: NERIS BROTHERS MD Date/Time of Note DATE: 08/12/18 TIME: 08:07 24 HR Interval Summary Free Text/Dictation No events. Seen by cardiac surgery. No chest pain or SOB. Diuresed well. Exam/Review of Systems Vital Signs Vitals Vital Signs Date Temp Pulse Resp B/P (MAP) Pulse Ox O2 O2 Flow FiO2 Time Delivery Rate 08/12/18 66 12 153/87 92 Nasal 2.0 07:00 (109) Cannula 08/12/18 97.7 04:00 Intake and Output 08/11/18 08/11/18 08/12/18 1515:00 23:00 07:00 IntakeIntake Total 430 ml 0 ml OutputOutput Total 1200 ml 850 ml 450 ml BalanceBalance -1200 ml -420 ml -450 ml Exam Constitutional: alert, oriented Psych: no complaints, nl mood/affect Head: normocephalic, atraumatic Neck: No jvd Respiratory: diminished breath sounds; No clear to auscultation Cardiovascular: regular rate and rhythm; No edema Gastrointestinal: soft, non-tender; No distended 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: nl mental status, nl speech Labs Result Diagram: 08/12/1841908/12/18 042 Results 24hrs Laboratory Tests Test 08/11/18 20:49 08/12/18 01:53 08/12/18 04:20 08/12/18 04:54 Bedside Glucose 141 175 White Blood Count 6.9 Red Blood Count 4.63 L Hemoglobin 13.4 L Hematocrit 40.9 L Mean Corpuscular 88.3 Volume Mean Corpuscular 28.9 L Hemoglobin Mean Corpuscular 32.8 Hemoglobin Concent Red Cell 14.8 H Distribution Width Platelet Count 148 Mean Platelet 11.6 H Volume Immature 0.300 Granulocytes % Neutrophils % 63.8 Lymphocytes % 23.4 Monocytes % 9.6 Eosinophils % 2.5 Basophils % 0.4 Nucleated Red 0.0 Blood Cells % Immature 0.020 Granulocytes # Neutrophils # 4.4 Lymphocytes # 1.6 Monocytes # 0.7 Eosinophils # 0.2 Basophils # 0.0 Nucleated Red 0.0 Blood Cells # Sodium Level 142 Potassium Level 4.0 Chloride Level 103 Carbon Dioxide 30 Level Anion Gap 9 Blood Urea 23 H Nitrogen Creatinine 1.66 H Est Glomerular Filtrat Rate mL/min Glucose Level 193 Calcium Level 9.3 Total Bilirubin 0.6 Direct Bilirubin 0.00 Indirect Bilirubin 0.6 Aspartate Amino 24 Transf (AST/SGOT) Alanine 18 Aminotransferase ( ALT/SGPT) Alkaline 77 Phosphatase Total Protein 7.2 Albumin 4.0 Globulin 3.20 Albumin/Globulin 1.25 Ratio Lab Scanned Report REFERENCE LAB Medications Medications Current Medications Carvedilol (Coreg Cr) 40 mg DAILY PO ; Start 08/12/18 at 09:00 Amlodipine Besylate (Norvasc) 5 mg DAILY PO Last administered on 08/11/18at 13:17; Admin Dose 5 MG; Start 08/11/18 at 13:00 Aspirin (Aspirin) 81 mg DAILY PO Last administered on 08/11/18 13:17; Admin Dose 81 MG; Start 08/11/18 at 13:00 Enoxaparin Sodium (Lovenox) 115 mg Q24H SC Last administered on 08/11/18at 15:00; Admin Dose 115 MG; Start 08/11/18 at 12:00 Atorvastatin Calcium (Lipitor) 40 mg HS PO Last administered on 08/11/18 20:53; Admin Dose 40 MG; Start 08/11/18 at 21:00 Hydralazine HCl (Apresoline) 10 mg Q4H PRN IV SBP >170; Start 08/11/18 at 12:00 Insulin Glargine (Lantus) 15 units DAILY@2000 SC Last administered on 4/22/19at 20:53; Admin Dose 15 UNITS; Start 08/11/18 at 20:00 Diagnostic Test (Pha) (Accu-Chek) 1 ea 02 XX ; Start 08/12/18 at 02:00 Insulin Aspart (Novolog Insulin Pen) 14 unit WITH BREAKFAST SC ; Start 08/12/18 at 07:35 Insulin Aspart (Novolog Insulin Pen) 14 unit WITH LUNCH SC ; Start 08/12/18 at 11:30 Insulin Aspart (Novolog Insulin Pen) 14 unit WITH DINNER SC ; Start 08/12/18 at 17:35 Furosemide (Lasix) 20 mg BID DIURETICS IV Last administered on 08/12/18at 05:32; Admin Dose 20 MG; Start 08/11/18 at 18:00 Albuterol/ Ipratropium (Duoneb) 3 ml Q8H RESP THERAPY HHN Last administered on 08/12/18at 00:25; Admin Dose 3 ML; Start 08/12/18 at 00:00 Miscellaneous Information 1 ea NOTE XX ; Start 08/11/18 at 18:30 Glucose (Glutose) 15 gm Q15M PRN PO DECREASED GLUCOSE; Start 08/11/18 at 18:30 Glucose (Glutose) 22.5 gm Q15M PRN PO DECREASED GLUCOSE; Start 08/11/18 at 18:30 Dextrose (D50w Syringe) 25 ml Q15M PRN IV DECREASED GLUCOSE; Start 08/11/18 at 18:30 Dextrose (D50w Syringe) 50 ml Q15M PRN IV DECREASED GLUCOSE; Start 08/11/18 at 18:30 Glucagon (Glucagen) 1 mg Q15M PRN IM DECREASED GLUCOSE; Start 08/11/18 at 18:30 Glucose (Glutose) 15 gm Q15M PRN BUCCAL DECREASED GLUCOSE; Start 08/11/18 at 18:30 ALONDRA GILBERT Aug 12, 2018 08:09
[2018-08-12] MEDS: CARVEDILOL 40 MG PO SCH (08:51)
[2018-08-12] MEDS: ASPIRIN 81 MG TAB PO SCH (08:52)
[2018-08-12] MEDS: AMLODIPINE 5 MG TAB PO SCH (08:52)
[2018-08-12] MEDS: INSULIN ASPART [NOVOLOG] 3 ML PEN SC SCH (08:55)
[2018-08-12] MEDS ORDERED: FUROSEMIDE 40 MG TAB PO SCH (09:00)
[2018-08-12] MEDS ORDERED: INSULIN ASPART [NOVOLOG] 3 ML PEN SC SCH ×2 (11:30→17:35)
[2018-08-12] MEDS: ENOXAPARIN 60 MG/0.6 ML SYG SC SCH (11:32)
[2018-08-12] MEDS: DOCUSATE SODIUM 100 MG CAP PO SCH ×2 (11:39→20:26)
[2018-08-12] MEDS: POLYETHYLENE GLYCOL 17 GM PACKET PO SCH ×2 (11:39→20:26)
--- NOTE | 2018-08-12 11:47 | CONS ---
Assessment/Plan Assessment/Plan Assessment/Plan (Daily) 1. acute kidney injury vs possible baseline CKD II with Cr 1.65 2. 3 V CAD- plan for CABG 3. H/o HTN 4. H/o HL 5. H/o DM II 6. H/o CAD with previous stent placement Plan: stop IV lasix diuresis, Cr 1.65- with CKD stage II Plan for CABG as per CT surgery will follow up Consultation Date/Type/Reason Admit Date/Time Aug 11, 2018 at 09:20 Initial Consult Date 08/11/18 Type of Consult NEPHROLOGY Requesting Provider: NERIS BROTHERS MD Date/Time of Note DATE: 08/12/18 TIME: 11:47 Exam/Review of Systems Exam Vitals Vital Signs Date Temp Pulse Resp B/P (MAP) Pulse Ox O2 O2 Flow FiO2 Time Delivery Rate 08/12/18 76 13 155/77 92 Room Air 10:30 (103) 08/12/18 21 08:25 08/12/18 98.4 08:00 08/12/18 2.0 07:00 Intake and Output 08/11/18 08/11/18 08/12/18 1414:59 22:59 06:59 IntakeIntake Total 370 ml 60 ml OutputOutput Total 600 ml 1300 ml 450 ml BalanceBalance -600 ml -930 ml -390 ml Exam Constitutional: alert, awake Respiratory: clear to auscultation, normal air movement, diminished breath sounds Cardiovascular: regular rate and rhythm, nl pulses Gastrointestinal: soft, non-tender Musculoskeletal: nl extremities to inspection Extremities: normal pulses 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, nl mental status, nl speech, nl strength Skin: nl turgor Lymph: nl lymph nodes Results Result Diagram: 08/12/1841908/12/18 042 Results 24hrs Laboratory Tests Test 08/11/18 20:49 08/12/18 01:53 08/12/18 04:20 08/12/18 04:54 Bedside Glucose 141 175 White Blood Count 6.9 Red Blood Count 4.63 L Hemoglobin 13.4 L Hematocrit 40.9 L Mean Corpuscular 88.3 Volume Mean Corpuscular 28.9 L Hemoglobin Mean Corpuscular 32.8 Hemoglobin Concent Red Cell 14.8 H Distribution Width Platelet Count 148 Mean Platelet 11.6 H Volume Immature 0.300 Granulocytes % Neutrophils % 63.8 Lymphocytes % 23.4 Monocytes % 9.6 Eosinophils % 2.5 Basophils % 0.4 Nucleated Red 0.0 Blood Cells % Immature 0.020 Granulocytes # Neutrophils # 4.4 Lymphocytes # 1.6 Monocytes # 0.7 Eosinophils # 0.2 Basophils # 0.0 Nucleated Red 0.0 Blood Cells # Sodium Level 142 Potassium Level 4.0 Chloride Level 103 Carbon Dioxide 30 Level Anion Gap 9 Blood Urea 23 H Nitrogen Creatinine 1.66 H Est Glomerular Filtrat Rate mL/min Glucose Level 193 Calcium Level 9.3 Total Bilirubin 0.6 Direct Bilirubin 0.00 Indirect Bilirubin 0.6 Aspartate Amino 24 Transf (AST/SGOT) Alanine 18 Aminotransferase ( ALT/SGPT) Alkaline 77 Phosphatase Total Protein 7.2 Albumin 4.0 Globulin 3.20 Albumin/Globulin 1.25 Ratio Lab Scanned Report REFERENCE LAB Test 08/12/18 08:38 Bedside Glucose 222 H Medications Medication Current Medications Carvedilol (Coreg Cr) 40 mg DAILY PO Last administered on 08/12/18 08:51; Admin Dose 40 MG; Start 08/12/18 at 09:00 Amlodipine Besylate (Norvasc) 5 mg DAILY PO Last administered on 08/12/18 08:5 2; Admin Dose 5 MG; Start 08/11/18 at 13:00 Aspirin (Aspirin) 81 mg DAILY PO Last administered on 08/12/18 08:52; Admin Dose 81 MG; Start 08/11/18 at 13:00 Enoxaparin Sodium (Lovenox) 115 mg Q24H SC Last administered on 08/11/18at 15:00; Admin Dose 115 MG; Start 08/11/18 at 12:00 Atorvastatin Calcium (Lipitor) 40 mg HS PO Last administered on 08/11/18at 20:53; Admin Dose 40 MG; Start 08/11/18 at 21:00 Hydralazine HCl (Apresoline) 10 mg Q4H PRN IV SBP >170; Start 08/11/18 at 12:00 Insulin Glargine (Lantus) 15 units DAILY@2000 SC Last administered on 08/11/18at 20:53; Admin Dose 15 UNITS; Start 08/11/18 at 20:00 Diagnostic Test (Pha) (Accu-Chek) 1 ea 02 XX ; Start 08/12/18 at 02:00 Insulin Aspart (Novolog Insulin Pen) 14 unit WITH BREAKFAST SC Last administered on 08/12/18at 08:55; Admin Dose 14 UNIT; Start 08/12/18 at 07:35 Insulin Aspart (Novolog Insulin Pen) 14 unit WITH LUNCH SC ; Start 08/12/18 at 11:30 Insulin Aspart (Novolog Insulin Pen) 14 unit WITH DINNER SC ; Start 08/12/18 at 17:35 Albuterol/ Ipratropium (Duoneb) 3 ml Q8H RESP THERAPY HHN Last administered on 08/12/18at 08:24; Admin Dose 3 ML; Start 08/12/18 at 00:00 Miscellaneous Information 1 ea NOTE XX ; Start 08/11/18 at 18:30 Glucose (Glutose) 15 gm Q15M PRN PO DECREASED GLUCOSE; Start 08/11/18 at 18:30 Glucose (Glutose) 22.5 gm Q15M PRN PO DECREASED GLUCOSE; Start 08/11/18 at 18:30 Dextrose (D50w Syringe) 25 ml Q15M PRN IV DECREASED GLUCOSE; Start 08/11/18 at 18:30 Dextrose (D50w Syringe) 50 ml Q15M PRN IV DECREASED GLUCOSE; Start 08/11/18 at 18:30 Glucagon (Glucagen) 1 mg Q15M PRN IM DECREASED GLUCOSE; Start 08/11/18 at 18:30 Glucose (Glutose) 15 gm Q15M PRN BUCCAL DECREASED GLUCOSE; Start 08/11/18 at 18:30 Docusate Sodium (Colace) 200 mg BID PO Last administered on 08/12/18at 11:39; Admin Dose 200 MG; Start 08/12/18 at 11:00; Stop 08/12/18 at 22:00 Polyethylene Glycol (Miralax) 17 gm BID PO Last administered on 08/12/18at 11:39; Admin Dose 17 GM; Start 08/12/18 at 11:00; Stop 08/12/18 at 22:00 DARRYL SOOD MD Aug 12, 2018 11:47
--- NOTE | 2018-08-12 12:17 | PN ---
Date/Time of Note Date/Time of Note DATE: 08/12/18 TIME: 12:17 Assessment/Plan Lines/Catheters IV Catheter Type (from Nrs): Peripheral IV Burkett in Place (from Nrs): No Assessment/Plan Assessment/Plan creatinine stable, cabg tomorrow Exam/Review of Systems Vital Signs Vitals Vital Signs Date Temp Pulse Resp B/P (MAP) Pulse Ox O2 O2 Flow FiO2 Time Delivery Rate 08/12/18 76 13 155/77 92 Room Air 10:30 (103) 08/12/18 21 08:25 08/12/18 98.4 08:00 08/12/18 2.0 07:00 Intake and Output 08/11/18 08/11/18 08/12/18 1515:00 23:00 07:00 IntakeIntake Total 430 ml 0 ml OutputOutput Total 1200 ml 850 ml 450 ml BalanceBalance -1200 ml -420 ml -450 ml Results Result Diagram: 08/12/18 0420 08/12/18 0420 LESIA DANIELLE MD Aug 12, 2018 12:17
--- NOTE | 2018-08-12 14:32 | PN ---
Date/Time of Note Date/Time of Note DATE: 08/12/18 TIME: 14:29 Assessment/Plan VTE Prophylaxis Risk score (from Ns)>0 risk: 7 [place]CD applied [place] [facility] [place] SCD contraindicated: low risk/ambulating Pharmacological prophylaxis: LMWH Lines/Catheters IV Catheter Type (from [facility] [place] [employer] line still needed: No Urinary Cath still in place: No Reason Cath still needed: urinary retention Assessment/Plan Assessment/Plan 1. Ischemic heart disease angina three-vessel coronary artery disease planned CABG. 2. Hypertension with congestive heart failure diastolic. 3. Diabetes mellitus type 2 blood sugar better controlled. On to receive a 20 units 11 PM NovoLog 15-20 units before each meal. 4. History of whole cystitis and pancreatitis 5. Chronic kidney disease with baseline creatinine being 1.6 there was a number of being also 1.8 after having the diarrhea. 6. Dyslipidemia better controlled 7. History of nasal bleeding recurrent 8. Morbid obesity with snoring and apnea and daytime sleepiness 9. BPH with nocturia 10. Low back pain with radiculopathy 11. 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 Status post cataract ectomy 13. Diabetic nephropathy retinopathy and angiopathy and neuropathy. 14. Constipation 15. Grief reaction after the of her 16. Gastroesophageal reflux disease 17. Deep venous thrombosis of the left saphenous vein, 2-3 months ago; currently on Eliquis 5 mg twice daily 18. Gastritis 19. COPD. Quit smoking 6 years ago. 20. History of nephrolithiasis. Result Diagram: Result Diagram: 08/12/18 0420 08/12/18 0420 Results 24hrs Laboratory Tests Test 08/11/18 20:49 08/12/18 01:53 08/12/18 04:20 08/12/18 04:54 Bedside Glucose 141 175 White Blood Count 6.9 Red Blood Count 4.63 L Hemoglobin 13.4 L Hematocrit 40.9 L Mean Corpuscular 88.3 Volume Mean Corpuscular 28.9 L Hemoglobin Mean Corpuscular 32.8 Hemoglobin Concent Red Cell 14.8 H Distribution Width Platelet Count 148 Mean Platelet 11.6 H Volume Immature 0.300 Granulocytes % Neutrophils % 63.8 Lymphocytes % 23.4 Monocytes % 9.6 Eosinophils % 2.5 Basophils % 0.4 Nucleated Red 0.0 Blood Cells % Immature 0.020 Granulocytes # Neutrophils # 4.4 Lymphocytes # 1.6 Monocytes # 0.7 Eosinophils # 0.2 Basophils # 0.0 Nucleated Red 0.0 Blood Cells # Sodium Level 142 Potassium Level 4.0 Chloride Level 103 Carbon Dioxide 30 Level Anion Gap 9 Blood Urea 23 H Nitrogen Creatinine 1.66 H Est Glomerular Filtrat Rate mL/min Glucose Level 193 Calcium Level 9.3 Total Bilirubin 0.6 Direct Bilirubin 0.00 Indirect Bilirubin 0.6 Aspartate Amino 24 Transf (AST/SGOT) Alanine 18 Aminotransferase ( ALT/SGPT) Alkaline 77 Phosphatase Total Protein 7.2 Albumin 4.0 Globulin 3.20 Albumin/Globulin 1.25 Ratio Lab Scanned Report REFERENCE LAB Test 08/12/18 08:38 08/12/18 12:22 08/12/18 13:38 Bedside Glucose 222 H 213 223 H Subjective 24 Hr Interval Summary Constitutional: poor po, requiring O2; No no complaints, No improved, No chills, No diaphoresis, No disoriented, No febrile, No requiring IVF, No other Eyes: No no complaints, No pain, No discharge, No redness, No visual change, No other ENT: No no complaints, No bleeding, No pain, No congestion, No discharge, No dysphagia, No sore throat, No other Respiratory: No no complaints, No pain, No cough, No pleuritic pain, No shortness of breath, No sputum, No wheezing, No other Cardiovascular: chest pain, edema, lightheadedness, orthopenea; No no complaints, No palpitations, No paroxysmal nocturnal dyspnea, No other Gastrointestinal: constipation, decreased appetite, flatus, nausea, passing stool; No no complaints, No pain, No blood, No diarrhea, No vomiting, No other Genitourinary: dysuria; No no complaints, No bleeding, No discharge, No flank pain, No hematuria, No other Musculoskeletal: back pain, bone/joint pain; No no complaints, No neck pain, No restricted range of motion, No swelling, No other Skin: pruritis, rash; No no complaints, No bruising, No erythema, No laceration, No skin lesions, No other Neurologic: dizziness, headache; No no complaints, No confusion, No focal-weakness, No syncope, No seizure, No other Endocrine: dry skin; No no complaints, No polyuria, No polydypsia, No temp intolerance, No other Lymphatic: No no complaints, No adenopathy, No tender nodes, No lymphadema, No other Psychological: anxiety; No no complaints, No nl mood/affect, No confusion, No depression, No suicidal, No other Immunologic: No no complaints, No immunodeficiency, No pruritis, No rhinitis, No urticaria, No other Exam/Review of Systems Exam Vitals Vital Signs Date Temp Pulse Resp B/P (MAP) Pulse Ox O2 O2 Flow FiO2 Time Delivery Rate 08/12/18 74 24 148/116 93 Room Air 12:30 (127) 08/12/18 98.4 12:00 08/12/18 21 08:25 08/12/18 2.0 07:00 Intake and Output 08/11/18 08/11/18 08/12/18 1515:00 23:00 07:00 IntakeIntake Total 430 ml 0 ml OutputOutput Total 1200 ml 850 ml 450 ml BalanceBalance -1200 ml -420 ml -450 ml Constitutional: alert, oriented, well developed, distress, frail Psych: anxiety, confusion, depression; No no complaints, No nl mood/affect, No suicidal, No other Head: normocephalic, atraumatic Eyes: EOMI, nl lids, PERRL; No nl conjunctiva, No nl sclera, No icteric, No fundi, disc, No other ENMT: No nl external ears & nose, No nl lips & teeth, No nl nasal mucosa & septum, No mucosa pink and moist, No intubated, No tympanic membranes, No other Neck: jvd, bruits, masses; No supple, No non-tender, No thyromegaly, No nuchal rigidity, No other Respiratory: congested cough, crackles/rales, diminished breath sounds, respirations; No clear to auscultation, No normal air movement, No intercostal retraction, No labored breathing, No tactile fremitus, No wheezing, No other Cardiovascular: regular rate and rhythm; No nl pulses, No bruits, No diastolic murmur, No edema, No gallop, No irregular rhythm, No jugular venous distention (JVD), No murmurs/extra sounds, No rub, No systolic murmur, No S3, No S4, No other Gastrointestinal: nl liver, spleen, bowel sounds, distended; No soft, No non-tender, No ascites, No firm, No hepatomegaly, No mass, No r ebound or guarding, No splenomegaly, No surgical scars, No tender, No other Genitourinary - Male: nl penis, nl scrotum Musculoskeletal: joint tenderness; No nl extremities to inspection, No nl gait and stance, No muscle tone, No muscle weakness, No range of motion, No spine non-tender, No swelling, No other Extremities: No normal pulses, No calf tenderness, No cyanosis, No clubbing, No edema, No pitting pedal edema, No palpable cord, No tenderness, No other 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: [employer] II-XII intact Results Results 24hrs Laboratory Tests Test 08/11/18 20:49 08/12/18 01:53 08/12/18 04:20 08/12/18 04:54 Bedside Glucose 141 175 White Blood Count 6.9 Red Blood Count 4.63 L Hemoglobin 13.4 L Hematocrit 40.9 L Mean Corpuscular 88.3 Volume Mean Corpuscular 28.9 L Hemoglobin Mean Corpuscular 32.8 Hemoglobin Concent Red Cell 14.8 H Distribution Width Platelet Count 148 Mean Platelet 11.6 H Volume Immature 0.300 Granulocytes % Neutrophils % 63.8 Lymphocytes % 23.4 Monocytes % 9.6 Eosinophils % 2.5 Basophils % 0.4 Nucleated Red 0.0 Blood Cells % Immature 0.020 Granulocytes # Neutrophils # 4.4 Lymphocytes # 1.6 Monocytes # 0.7 Eosinophils # 0.2 Basophils # 0.0 Nucleated Red 0.0 Blood Cells # Sodium Level 142 Potassium Level 4.0 Chloride Level 103 Carbon Dioxide 30 Level Anion Gap 9 Blood Urea 23 H Nitrogen Creatinine 1.66 H Est Glomerular Filtrat Rate mL/min Glucose Level 193 Calcium Level 9.3 Total Bilirubin 0.6 Direct Bilirubin 0.00 Indirect Bilirubin 0.6 Aspartate Amino 24 Transf (AST/SGOT) Alanine 18 Aminotransferase ( ALT/SGPT) Alkaline 77 Phosphatase Total Protein 7.2 Albumin 4.0 Globulin 3.20 Albumin/Globulin 1.25 Ratio Lab Scanned Report REFERENCE LAB Test 08/12/18 08:38 08/12/18 12:22 08/12/18 13:38 Bedside Glucose 222 H 213 223 H Medications Medication Current Medications Carvedilol (Coreg Cr) 40 mg DAILY PO Last administered on 08/12/18at 08:51; Admin Dose 40 MG; Start 08/12/18 at 09:00 Amlodipine Besylate (Norvasc) 5 mg DAILY PO Last administered on 08/12/18 08:52; Admin Dose 5 MG; Start 08/11/18 at 13:00 Aspirin (Aspirin) 81 mg DAILY PO Last administered on 08/12/18 08:52; Admin Dose 81 MG; Start 08/11/18 at 13:00 Enoxaparin Sodium (Lovenox) 115 mg Q24H SC Last administered on 08/11/18at 15:00; Admin Dose 115 MG; Start 08/11/18 at 12:00 Atorvastatin Calcium (Lipitor) 40 mg HS PO Last administered on 08/11/18 20:53; Admin Dose 40 MG; Start 08/11/18 at 21:00 Hydralazine HCl (Apresoline) 10 mg Q4H PRN IV SBP >170; Start 08/11/18 at 12:00 Insulin Glargine (Lantus) 15 units DAILY@2000 SC Last administered on 08/11/18 20:53; Admin Dose 15 UNITS; Start 08/11/18 at 20:00 Diagnostic Test (Pha) (Accu-Chek) 1 ea 02 XX ; Start 08/12/18 at 02:00 Insulin Aspart (Novolog Insulin Pen) 14 unit WITH BREAKFAST SC Last administe red on 08/12/18 08:55; Admin Dose 14 UNIT; Start 08/12/18 at 07:35 Insulin Aspart (Novolog Insulin Pen) 14 unit WITH LUNCH SC Last administered on 08/12/18 12:28; Admin Dose 14 UNIT; Start 08/12/18 at 11:30 Insulin Aspart (Novolog Insulin Pen) 14 unit WITH DINNER SC ; Start 08/12/18 at 17:35 Albuterol/ Ipratropium (Duoneb) 3 ml Q8H RESP THERAPY HHN Last administered on 08/12/18 08:24; Admin Dose 3 ML; Start 08/12/18 at 00:00 Miscellaneous Information 1 ea NOTE XX ; Start 08/11/18 at 18:30 Glucose (Glutose) 15 gm Q15M PRN PO DECREASED GLUCOSE; Start 08/11/18 at 18:30 Glucose (Glutose) 22.5 gm Q15M PRN PO DECREASED GLUCOSE; Start 08/11/18 at 18:30 Dextrose (D50w Syringe) 25 ml Q15M PRN IV DECREASED GLUCOSE; Start 08/11/18 at 18:30 Dextrose (D50w Syringe) 50 ml Q15M PRN IV DECREASED GLUCOSE; Start 08/11/18 at 18:30 Glucagon (Glucagen) 1 mg Q15M PRN IM DECREASED GLUCOSE; Start 08/11/18 at 18:30 Glucose (Glutose) 15 gm Q15M PRN BUCCAL DECREASED GLUCOSE; Start 08/11/18 at 18:30 Docusate Sodium (Colace) 200 mg BID PO Last administered on 08/12/18at 11:39; Admin Dose 200 MG; Start 08/12/18 at 11:00; Stop 08/12/18 at 22:00 Polyethylene Glycol (Miralax) 17 gm BID PO Last administered on 08/12/18at 11:39; Admin Dose 17 GM; Start 08/12/18 at 11:00; Stop 08/12/18 at 22:00 NERIS BROTHERS MD Aug 12, 2018 14:31
[2018-08-12] MEDS ORDERED: INSULIN ASPART [NOVOLOG] 3 ML PEN SC ONE (15:00)
--- NOTE | 2018-08-12 16:48 | RADRPT ---
Vent Rate: 66 bpm RR Interval: 916 msec ND Interval: 249 msec QRS Duration: 86 msec QT Interval: 432 msec QTC Interval: 451 msec P-R-T [place]: -54 - -53 - 114 degrees Sinus or ectopic atrial rhythm...P axis (-45,135) Prolonged ND interval...ND >220, V-rate 50- 90 Left anterior fascicular block...axis(240,-40), init forces inf Anterior infarct, old...Q >40mS, abnormal ST-T, V2-V5 Abnormal T, consider ischemia, lateral leads...T <-0.20mV, I aVL V5 V6 Electronically Signed By: Luis Manuel Uriarte
[2018-08-12] MEDS ORDERED: INSULIN GLARGINE [LANTus] (100 UNITS/ML) SYG SC SCH (20:00)
[2018-08-12] MEDS: ATORVASTATIN 40 MG TAB PO SCH (20:24)
[2018-08-12] MEDS ORDERED: INSULIN GLARGINE [LANTus] (100 UNITS/ML) SYG SC ONE (22:00)
[2018-08-13] VITALS (52 sets, daily range): BP systolic 91–167; BP diastolic 50–90; PULSE 61–116; RESP 11–29; TEMP 97.8–99.2
[2018-08-13] MEDS: ALBUTEROL/IPRATROPIUM (NEB) 3 ML AMP HHN SCH ×3 (00:38→15:40)
[2018-08-13] MEDS: ACCU-CHEK XX SCH ×8 (02:00→23:06)
[2018-08-13] MEDS ORDERED: DOPamine-D5W 1.6 MG/ML 250 ML ONE (07:00)
[2018-08-13] MEDS ORDERED: NITROGLYCERIN 50 MG/D5W 250 ML BTL ONE (07:00)
--- NOTE | 2018-08-13 07:20 | CONS ---
Assessment/Plan Assessment/Plan Hospital Course (Demo Recall) CAD: s/p multiple prior PCIs. Cath 08/11/18 with multivessel disease. Plan for CABG Acute on chronic diastolic CHF: Diuresed on admission and now euvolemic on my exam Recent left femoral DVT: on Eliquis as outpt. Held for procedure. Will give lovenox in the interim CKD (baseline Cr 1.6. Stable so far DM HT HL -await CABG today -will decide on lasix dosing after surgery -ASA -hold Eliquis, lovenox 1mg/kg daily with CKD (hold for surgery, restart when safe) -lipitor 40mg -coreg cr 40mg -amlodipine 5mg Consultation Date/Type/Reason Admit Date/Time Aug 11, 2018 at 09:20 Initial Consult Date 08/11/18 Type of Consult Cardiology Requesting Provider: NERIS BROTHERS MD Date/Time of Note DATE: 08/13/18 TIME: 07:19 24 HR Interval Summary Free Text/Dictation No events. Cr stable. Exam/Review of Systems Vital Signs Vitals Vital Signs Date Temp Pulse Resp B/P (MAP) Pulse Ox O2 O2 Flow FiO2 Time Delivery Rate 08/13/18 62 13 156/81 91 Nasal 2.0 06:30 (106) Cannula 08/13/18 97.4 04:00 08/12/18 16:34 Intake and Output 08/12/18 08/12/18 08/13/18 1515:00 23:00 07:00 IntakeIntake Total 720 ml 440 ml 0 ml OutputOutput Total 425 ml 550 ml 150 ml BalanceBalance 295 ml -110 ml -150 ml Exam Constitutional: alert, oriented Psych: no complaints, nl mood/affect Head: normocephalic, atraumatic Neck: No jvd Respiratory: clear to auscultation; No crackles/rales Cardiovascular: regular rate and rhythm; No edema Gastrointestinal: soft, non-tender 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: nl mental status, nl speech Labs Result Diagram: 08/13/18 0435 08/13/18 0435 Results 24hrs Laboratory Tests Test 08/12/18 08:38 08/12/18 12:22 08/12/18 13:38 08/12/18 17:12 Bedside Glucose 222 H 213 223 H 142 Test 08/12/18 20:19 08/12/18 21:24 08/13/18 02:10 08/13/18 04:35 Bedside Glucose 110 96 146 White Blood Count 6.5 Red Blood Count 4.84 Hemoglobin 14.2 Hematocrit 42.9 Mean Corpuscular 88.6 Volume Mean Corpuscular 29.3 Hemoglobin Mean Corpuscular 33.1 Hemoglobin Concent Red Cell 14.5 Distribution Width Platelet Count 149 Mean Platelet Volume 11.6 H Immature 0.500 H Granulocytes % Neutrophils % 59.2 Lymphocytes % 28.4 Monocytes % 9.5 Eosinophils % 2.1 Basophils % 0.3 Nucleated Red Blood 0.0 Cells % Immature 0.030 Granulocytes # Neutrophils # 3.9 Lymphocytes # 1.9 Monocytes # 0.6 Eosinophils # 0.1 Basophils # 0.0 Nucleated Red Blood 0.0 Cells # Prothrombin Time 13.3 Prothrombin Time 1.0 Ratio INR International 1.00 Normalized Ratio Activated 25.8 Partial Thromboplast Time Sodium Level 141 Potassium Level 4.2 Chloride Level 103 Carbon Dioxide Level 29 Anion Gap 9 Blood Urea Nitrogen 30 H Creatinine 1.64 H Est Glomerular Filtrat Rate mL/min Glucose Level 162 Calcium Level 8.9 Total Bilirubin 0.7 Direct Bilirubin 0.00 Indirect Bilirubin 0.7 Aspartate Amino 28 Transf (AST/SGOT) Alanine 16 Aminotransferase (AL T/SGPT) Alkaline Phosphatase 76 Total Protein 7.3 Albumin 4.0 Globulin 3.30 H Albumin/Globulin 1.21 Ratio Medications Medications Current Medications Carvedilol (Coreg Cr) 40 mg DAILY PO Last administered on 08/12/18 08:51; Admin Dose 40 MG; Start 08/12/18 at 09:00 Amlodipine Besylate (Norvasc) 5 mg DAILY PO Last administered on 08/12/18 08:52; Admin Dose 5 MG; Start 08/11/18 at 13:00 Aspirin (Aspirin) 81 mg DAILY PO Last administered on 08/12/18 08:52; Admin Do se 81 MG; Start 08/11/18 at 13:00 Enoxaparin Sodium (Lovenox) 115 mg Q24H SC Last administered on 08/11/18 15:00; Admin Dose 115 MG; Start 08/11/18 at 12:00 Atorvastatin Calcium (Lipitor) 40 mg HS PO Last administered on 08/12/18 20:24; Admin Dose 40 MG; Start 08/11/18 at 21:00 Hydralazine HCl (Apresoline) 10 mg Q4H PRN IV SBP >170; Start 08/11/18 at 12:00 Diagnostic Test (Pha) (Accu-Chek) 1 ea 02 XX ; Start 08/12/18 at 02:00 Insulin Aspart (Novolog Insulin Pen) 14 unit WITH BREAKFAST SC Last administered on 08/12/18at 08:55; Admin Dose 14 UNIT; Start 08/12/18 at 07:35 Insulin Aspart (Novolog Insulin Pen) 14 unit WITH LUNCH SC Last administered on 08/12/18at 12:28; Admin Dose 14 UNIT; Start 08/12/18 at 11:30 Insulin Aspart (Novolog Insulin Pen) 14 unit WITH DINNER SC Last administered on 08/12/18at 17:19; Admin Dose 14 UNIT; Start 08/12/18 at 17:35 Albuterol/ Ipratropium (Duoneb) 3 ml Q8H RESP THERAPY HHN Last administered on 08/13/18at 00:38; Admin Dose 3 ML; Start 08/12/18 at 00:00 Miscellaneous Information 1 ea NOTE XX ; Start 08/11/18 at 18:30 Glucose (Glutose) 15 gm Q15M PRN PO DECREASED GLUCOSE; Start 08/11/18 at 18:30 Glucose (Glutose) 22.5 gm Q15M PRN PO DECREASED GLUCOSE; Start 08/11/18 at 18:30 Dextrose (D50w Syringe) 25 ml Q15M PRN IV DECREASED GLUCOSE; Start 08/11/18 at 18:30 Dextrose (D50w Syringe) 50 ml Q15M PRN IV DECREASED GLUCOSE; Start 08/11/18 at 18:30 Glucagon (Glucagen) 1 mg Q15M PRN IM DECREASED GLUCOSE; Start 08/11/18 at 18:30 Glucose (Glutose) 15 gm Q15M PRN BUCCAL DECREASED GLUCOSE; Start 08/11/18 at 18:30 Insulin Glargine (Lantus) 20 units DAILY@2000 SC ; Start 08/12/18 at 20:00 Insulin Human Regular 100 unit/ Sodium Chloride 100 ml @ 0 mls/hr Q0M ONCE IVPB ; Start 08/13/18 at 09:00; Stop 08/13/18 at 09:01 Norepinephrine 250 ml @ 0 mls/hr ONCE ONCE IV ; Start 08/13/18 at 09:00; Stop 08/13/18 at 09:01 Epinephrine 4 mg/ Dextrose 250 ml @ 0 mls/hr Q0M ONCE IV ; Start 08/13/18 at 09:00; Stop 08/13/18 at 09:01 Phenylephrine HCl 250 ml @ 0 mls/hr ONCE ONCE IV ; Start 08/13/18 at 09:00; Stop 08/13/18 at 09:01 Aspirin (Aspirin) 600 mg ONCE ONCE SD ; Start 08/13/18 at 09:00; Stop 08/13/18 at 09:01 Heparin Sodium (Porcine) 03300 unit/Milrinone Lactate 10 mg/ Sodium Chloride 1,011 ml @ 0 mls/hr ONCE ONCE SC ; Start 08/13/18 at 09:00; Stop 08/13/18 at 09:01 Milrinone Lactate 2 mg/Sodium Chloride 52 ml @ 0 mls/hr ONCE ONCE IV ; Start 08/13/18 at 09:00; Stop 08/13/18 at 09:01 ALONDRA GILBERT Aug 13, 2018 07:20
[2018-08-13] MEDS: INSULIN ASPART [NOVOLOG] 3 ML PEN SC SCH (07:35)
[2018-08-13] MEDS ORDERED: VANCOMYCIN 1 GM INJ ONE (08:22)
[2018-08-13] MEDS ORDERED: PAPAVERINE 60 MG INJ ONE (08:23)
[2018-08-13] MEDS ORDERED: HEPARIN 1000 UNITS/ML 10 ML INJ ONE ×3 (08:23→10:45)
[2018-08-13] MEDS ORDERED: ASPIRIN 300 MG SUPP PR ONE (08:51)
[2018-08-13] MEDS ORDERED: ASPIRIN 600 MG SUPP PR ONE (09:00)
[2018-08-13] MEDS ORDERED: PHENYLephrine 20MG IN 250 ML 250 ML IV ONE (09:00)
[2018-08-13] MEDS: CARVEDILOL 40 MG PO SCH (09:00)
[2018-08-13] MEDS ORDERED: HEPARIN (10000 UNITS/ML) 10,000 UNIT, MILRINONE LACTATE 10 MG in SOD CHLORIDE 0.9% 1,00... SC ONE (09:00)
[2018-08-13] MEDS: AMLODIPINE 5 MG TAB PO SCH (09:00)
[2018-08-13] MEDS ORDERED: MILRINONE LACTATE 2 MG in SOD CHLORIDE 0.9% 50 ML IV ONE (09:00)
[2018-08-13] MEDS: ASPIRIN 81 MG TAB PO SCH (09:00)
[2018-08-13] MEDS ORDERED: INSULIN HUMAN REGULAR 100 UNIT in SOD CHLORIDE 0.9% 99 ML IVPB ONE (09:00)
[2018-08-13] MEDS ORDERED: EPINEPHrine 4 MG in DEXTROSE 5% 246 ML IV ONE (09:00)
[2018-08-13] MEDS ORDERED: NORepinephrine 8MG/250 ML (PMX 250 ML IV ONE (09:00)
[2018-08-13] MEDS ORDERED: MIDAZOLAM 5 ML ONE ×2 (09:15→11:15)
[2018-08-13] MEDS ORDERED: PHENYLephrine (100 MCG/ML) 10ML SYG ONE (09:17)
--- NOTE | 2018-08-13 09:18 | PN ---
Date/Time of Note Date/Time of Note DATE: 08/13/18 TIME: 09:11 Assessment/Plan VTE Prophylaxis Risk score (from Ns)>0 risk: 6 SCD applied (from Ns): No SCD contraindicated: other (on.) Pharmacological prophylaxis: LMWH Lines/Catheters IV [facility]from [facility] [place] [employer] line still needed: No Urinary Cath still in place: No Assessment/Plan Assessment/Plan 1. Ischemic heart disease angina three-vessel coronary artery disease planned CABG today. 2. Hypertension with congestive heart failure diastolic- improved. Now e uvolemic. 3. Diabetes mellitus type 2 blood sugar better controlled. On to receive a 12 units 11 PM NovoLog 12 units.Refused yesterday. 4. History of cholecystitis and pancreatitis 5. Chronic kidney disease with baseline creatinine being 1.6 there was a number of being also 1.8 after having the diarrhea. 6. Dyslipidemia better controlled 7. History of nasal bleeding recurrent- stable. 8. Morbid obesity with snoring and apnea and daytime sleepiness 9. BPH with nocturia 10. Low back pain with radiculopathy 11. 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 Status post cataract ectomy 13. Diabetic nephropathy retinopathy and angiopathy and neuropathy. 14. Constipation- improved. 15. Grief reaction after the of her 16. Gastroesophageal reflux disease 17. Deep venous thrombosis of the left saphenous vein, 2-3 months ago;was on Eliquis 5 mg twice daily, currently stopped: since 08/11/2018. 18. Gastritis 19. COPD. Quit smoking 10years ago. 20. History of nephrolithiasis. Result Diagram: 08/13/18 0435 08/13/18 0435 Results 24hrs Laboratory Tests Test 08/12/18 12:22 08/12/18 13:38 08/12/18 17:12 08/12/18 20:19 Bedside Glucose 213 223 H 142 110 Test 08/12/18 21:24 08/13/18 02:10 08/13/18 04:35 08/13/18 08:07 Bedside Glucose 96 146 179 White Blood Count 6.5 Red Blood Count 4.84 Hemoglobin 14.2 Hematocrit 42.9 Mean Corpuscular 88.6 Volume Mean Corpuscular 29.3 Hemoglobin Mean Corpuscular 33.1 Hemoglobin Concent Red Cell 14.5 Distribution Width Platelet Count 149 Mean Platelet Volume 11.6 H Immature 0.500 H Granulocytes % Neutrophils % 59.2 Lymphocytes % 28.4 Monocytes % 9.5 Eosinophils % 2.1 Basophils % 0.3 Nucleated Red Blood 0.0 Cells % Immature 0.030 Granulocytes # Neutrophils # 3.9 Lymphocytes # 1.9 Monocytes # 0.6 Eosinophils # 0.1 Basophils # 0.0 Nucleated Red Blood 0.0 Cells # Prothrombin Time 13.3 Prothrombin Time 1.0 Ratio INR International 1.00 Normalized Ratio Activated 25.8 Partial Thromboplast Time Sodium Level 141 Potassium Level 4.2 Chloride Level 103 Carbon Dioxide Level 29 Anion Gap 9 Blood Urea Nitrogen 30 H Creatinine 1.64 H Est Glomerular Filtrat Rate mL/min Glucose Level 162 Calcium Level 8.9 Total Bilirubin 0.7 Direct Bilirubin 0.00 Indirect Bilirubin 0.7 Aspartate Amino 28 Transf (AST/SGOT) Alanine 16 Aminotransferase (AL T/SGPT) Alkaline Phosphatase 76 Total Protein 7.3 Albumin 4.0 Globulin 3.30 H Albumin/Globulin 1.21 Ratio Subjective 24 Hr Interval Summary Free Text/Dictation Anxious due to of the delay of surgery. No complains. Constitutional: improved, poor po (npo.), requiring O2; No no complaints, No chills, No diaphoresis, No disoriented, No febrile, No requiring IVF, No other Eyes: No no complaints, No pain, No discharge, No redness, No visual change, No other ENT: No no complaints, No bleeding, No pain, No congestion, No discharge, No dysphagia, No sore throat, No other Respiratory: No no complaints, No pain, No cough, No pleuritic pain, No shortness of breath, No sputum, No wheezing, No other Cardiovascular: No no complaints, No chest pain, No edema, No lightheadedness, No orthopenea, No palpitations, No paroxysmal nocturnal dyspnea, No other Gastrointestinal: constipation, decreased appetite, passing stool; No no complaints, No pain, No blood, No diarrhea, No flatus, No nausea, No vomiting, No other Genitourinary: No no complaints, No bleeding, No dysuria, No discharge, No flank pain, No hematuria, No other Musculoskeletal: back pain, neck pain; No no complaints, No bone/joint pain, No restricted range of motion, No swelling, No other Skin: No no complaints, No bruising, No erythema, No laceration, No pruritis, No rash, No skin lesions, No other Neurologic: headache; No no complaints, No confusion, No dizziness, No focal-weakness, No syncope, No seizure, No other Endocrine: No no complaints, No polyuria, No polydypsia, No dry skin, No temp intolerance, No other Lymphatic: No no complaints, No adenopathy, No tender nodes, No lymphadema, No other Psychological: anxiety; No no complaints, No nl mood/affect, No confusion, No depression, No suicidal, No other Immunologic: No no complaints, No immunodeficiency, No pruritis, No rhinitis, No urticaria, No other Exam/Review of Systems Exam Vitals Vital Signs Date Temp Pulse Resp B/P (MAP) Pulse Ox O2 O2 Flow FiO2 Time Delivery Rate 08/13/18 69 14 98 Nasal 2.0 08:33 Cannula 08/13/18 150/86 07:00 (107) 08/13/18 97.4 04:00 08/12/18 21 16:34 Intake and Output 08/12/18 08/12/18 08/13/18 1414:59 22:59 06:59 IntakeIntake Total 720 ml 440 ml 0 ml OutputOutput Total 575 ml 550 ml 150 ml BalanceBalance 145 ml -110 ml -150 ml Constitutional: alert, oriented, well developed, non-verbal, obese; No distress, No frail, No other Psych: anxiety, depression; No no complaints, No nl mood/affect, No confusion, No suicidal, No other Head: normocephalic, atraumatic; No lacerations, No hematomas, No other Eyes: EOMI, nl lids, PERRL; No nl conjunctiva, No nl sclera, No icteric, No fundi, disc, No other ENMT: nl nasal mucosa & septum, tympanic membranes; No nl external ears & nose, No nl lips & teeth, No mucosa pink and moist, No intubated, No other Neck: jvd, bruits, thyromegaly; No supple, No non-tender, No masses, No nuchal rigidity, No other Respiratory: No clear to auscultation, No normal air movement, No congested cough, No crackles/rales, No diminished breath sounds, No intercostal retraction, No labored breathing, No respirations, No tactile fremitus, No wheezing, No other Cardiovascular: regular rate and rhythm; No nl pulses, No bruits, No diastolic murmur, No edema, No gallop, No irregular rhythm, No jugular venous distention (JVD), No murmurs/extra sounds, No rub, No systolic murmur, No S3, No S4, No other Gastrointestinal: soft, nl liver, spleen, bowel sounds; No non-tender, No ascites, No distended, No firm, No hepatomegaly, No mass, No rebound or guarding, No splenomegaly, No surgical scars, No tender, No other Genitourinary - Male: nl penis, nl scrotum; No CVA tenderness, No discharge, No other Musculoskeletal: nl extremities to inspection, joint tenderness, muscle tone; No nl gait and stance, No muscle weakness, No range of motion, No spine non- tender, No swelling, No other Extremities: normal pulses; No calf tenderness, No cyanosis, No clubbing, No edema, No pitting pedal edema, No palpable cord, No tenderness, No other 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; No nl mental status, No nl speech, No nl strength, No confused, No DTR's symmetric, No focal weakness, No lethargic, No numbness, No reflexes, No unresponsive, No other Skin: nl turgor; No rash or lesions, No diaphoresis, No ecchymosis, No laceration, No puncture, No other Lymph: nl lymph nodes; No enlarged, No nontender, No other Results Results 24hrs Laboratory Tests Test 08/12/18 12:22 08/12/18 13:38 08/12/18 17:12 08/12/18 20:19 Bedside Glucose 213 223 H 142 110 Test 08/12/18 21:24 08/13/18 02:10 08/13/18 04:35 08/13/18 08:07 Bedside Glucose 96 146 179 White Blood Count 6.5 Red Blood Count 4.84 Hemoglobin 14.2 Hematocrit 42.9 Mean Corpuscular 88.6 Volume Mean Corpuscular 29.3 Hemoglobin Mean Corpuscular 33.1 Hemoglobin Concent Red Cell 14.5 Distribution Width Platelet Count 149 Mean Platelet Volume 11.6 H Immature 0.500 H Granulocytes % Neutrophils % 59.2 Lymphocytes % 28.4 Monocytes % 9.5 Eosinophils % 2.1 Basophils % 0.3 Nucleated Red Blood 0.0 Cells % Immature 0.030 Granulocytes # Neutrophils # 3.9 Lymphocytes # 1.9 Monocytes # 0.6 Eosinophils # 0.1 Basophils # 0.0 Nucleated Red Blood 0.0 Cells # Prothrombin Time 13.3 Prothrombin Time 1.0 Ratio INR International 1.00 Normalized Ratio Activated 25.8 Partial Thromboplast Time Sodium Level 141 Potassium Level 4.2 Chloride Level 103 Carbon Dioxide Level 29 Anion Gap 9 Blood Urea Nitrogen 30 H Creatinine 1.64 H Est Glomerular Filtrat Rate mL/min Glucose Level 162 Calcium Level 8.9 Total Bilirubin 0.7 Direct Bilirubin 0.00 Indirect Bilirubin 0.7 Aspartate Amino 28 Transf (AST/SGOT) Alanine 16 Aminotransferase (AL T/SGPT) Alkaline Phosphatase 76 Total Protein 7.3 Albumin 4.0 Globulin 3.30 H Albumin/Globulin 1.21 Ratio Medications Medication Current Medications Carvedilol (Coreg Cr) 40 mg DAILY PO Last administered on 08/12/18 08:51; Admin Dose 40 MG; Start 08/12/18 at 09:00 Amlodipine Besylate (Norvasc) 5 mg DAILY PO Last administered on 08/12/18 08:52; Admin Dose 5 MG; Start 08/11/18 at 13:00 Aspirin (Aspirin) 81 mg DAILY PO Last administered on 08/12/18 08:52; Admin Dose 81 MG; Start 08/11/18 at 13:00 Enoxaparin Sodium (Lovenox) 115 mg Q24H SC Last administered on 08/11/18at 15:00; Admin Dose 115 MG; Start 08/11/18 at 12:00 Atorvastatin Calcium (Lipitor) 40 mg HS PO Last administered on 08/12/18at 20:24; Admin Dose 40 MG; Start 08/11/18 at 21:00 Hydralazine HCl (Apresoline) 10 mg Q4H PRN IV SBP >170; Start 08/11/18 at 12:00 Diagnostic Test (Pha) (Accu-Chek) 1 ea 02 XX ; Start 08/12/18 at 02:00 Insulin Aspart (Novolog Insulin Pen) 14 unit WITH BREAKFAST SC Last administered on 08/12/18at 08:55; Admin Dose 14 UNIT; Start 08/12/18 at 07:35 Insulin Aspart (Novolog Insulin Pen) 14 unit WITH LUNCH SC Last administered on 08/12/18at 12:28; Admin Dose 14 UNIT; Start 08/12/18 at 11:30 Insulin Aspart (Novolog Insulin Pen) 14 unit WITH DINNER SC Last administered on 08/12/18at 17:19; Admin Dose 14 UNIT; Start 08/12/18 at 17:35 Albuterol/ Ipratropium (Duoneb) 3 ml Q8H RESP THERAPY HHN Last administered on 08/13/18at 08:31; Admin Dose 3 ML; Start 08/12/18 at 00:00 Miscellaneous Information 1 ea NOTE XX ; Start 08/11/18 at 18:30 Glucose (Glutose) 15 gm Q15M PRN PO DECREASED GLUCOSE; Start 08/11/18 at 18:30 Glucose (Glutose) 22.5 gm Q15M PRN PO DECREASED GLUCOSE; Start 08/11/18 at 18:30 Dextrose (D50w Syringe) 25 ml Q15M PRN IV DECREASED GLUCOSE; Start 08/11/18 at 18:30 Dextrose (D50w Syringe) 50 ml Q15M PRN IV DECREASED GLUCOSE; Start 08/11/18 at 18:30 Glucagon (Glucagen) 1 mg Q15M PRN IM DECREASED GLUCOSE; Start 08/11/18 at 18:30 Glucose (Glutose) 15 gm Q15M PRN BUCCAL DECREASED GLUCOSE; Start 08/11/18 at 18:30 Insulin Glargine (Lantus) 20 units DAILY@2000 SC ; Start 08/12/18 at 20:00 NERIS BROTHERS MD Aug 13, 2018 09:18
--- NOTE | 2018-08-13 09:24 | HPN ---
Date/Time of Note Date/Time of Note DATE: 08/13/18 TIME: 09:24 Interval H&P Admission Note Pt. seen H&P reviewed: No system changes LESIA DANIELLE MD Aug 13, 2018 09:24
--- NOTE | 2018-08-13 09:25 | PREAC ---
Date/Time of Note Date/Time of Note DATE: 08/13/18 TIME: 09:23 Anesthesia Eval and Record Evaluation Time Pre-Procedure Interview DATE: 08/13/18 TIME: :23 Age 73 Sex male NPO: 8 hrs Preoperative diagnosis CAD, S/p CT Planned procedure CABG Past Medical History Past Medical History: Includes Cardio: HTN, Dyslipidemia, CT, CAD Endo: Diabetes Pulm: Smoking Hx, COPD GI: Morbid obesity Surgery & Anesthesia Issues No known issue Meds Anticoagulation: Yes Beta Kiki within 24 hr: No Reason Beta Kiki not given: Pt. not on B-Kiki Reported Medications Insulin Aspart* (Novolog Insulin Pen*) 100 Unit/Ml Soln, 0 SC .SLIDING SCALE AC, EA AC MEALS 08/11/18 Insulin Detemir (Levemir Flextouch) 100 Unit/1 Ml Insuln.pen, 25 UNIT SQ QHS, EA 08/11/18 Potassium Chloride* (K-Dur*) 10 Meq Tab.prt.sr, 10 MEQ PO DAILY, TAB 08/11/18 Furosemide* (Furosemide*) 40 Mg Tablet, 40 MG PO DAILY, TAB 08/11/18 Aspirin (Low Dose Aspirin) 81 Mg Tablet.dr, 81 MG PO DAILY, #30 TAB 08/11/18 Apixaban* (Eliquis*) 5 Mg Tablet, 5 MG PO BID, TAB 08/11/18 Clonidine Hcl* (Clonidine Hcl*) 0.1 Mg Tab, 0.1 MG PO DAILY PRN for ELEVATED BLOOD PRESSURE, TAB 08/11/18 Carvedilol* (Coreg CR*) 40 Mg Capsr, 40 MG PO DAILY, #30 CAP 08/11/18 Rosuvastatin Calcium* (Crestor*) 40 Mg Tablet, 40 MG PO QHS, #30 TAB 08/11/18 Amlodipine Besylate* (Norvasc*) 5 Mg Tablet, 5 MG PO DAILY, TAB 08/11/18 Discontinued Reported Medications Carvedilol* (Coreg CR*) 80 Mg Cpmp.24hr, 80 MG PO HS 07/20/11 Clonidine Hcl* (Clonidine Hcl*) 0.2 Mg Tablet, 0.2 MG PO BID PRN 07/20/11 Insulin Aspart* (Novolog Insulin Vial*) 100 U/Ml Vial 10/14/10 Insulin Detemir* (Levemir*) 100 U/Ml Vial 10/14/10 Prasugrel Hydrochloride* (Effient*) 10 Mg Tablet 10/14/10 Pantoprazole* (Protonix*) 40 Mg Tablet. 10/14/10 Ramipril (Altace) 10 Mg Tablet 11/21/09 Current Medications Carvedilol (Coreg Cr) 40 mg DAILY PO Last administered on 08/12/18 08:51; Admin Dose 40 MG; Start 08/12/18 at 09:00 Amlodipine Besylate (Norvasc) 5 mg DAILY PO Last administered on 08/12/18 08: 52; Admin Dose 5 MG; Start 08/11/18 at 13:00 Aspirin (Aspirin) 81 mg DAILY PO Last administered on 08/12/18 08:52; Admin Dose 81 MG; Start 08/11/18 at 13:00 Enoxaparin Sodium (Lovenox) 115 mg Q24H SC Last administered on 08/11/18 15:00; Admin Dose 115 MG; Start 08/11/18 at 12:00 Atorvastatin Calcium (Lipitor) 40 mg HS PO Last administered on 08/12/18 20:24; Admin Dose 40 MG; Start 08/11/18 at 21:00 Hydralazine HCl (Apresoline) 10 mg Q4H PRN IV SBP >170; Start 08/11/18 at 12:00 Diagnostic Test (Pha) (Accu-Chek) 1 ea 02 XX ; Start 08/12/18 at 02:00 Insulin Aspart (Novolog Insulin Pen) 14 unit WITH BREAKFAST SC Last administered on 08/12/18 08:55; Admin Dose 14 UNIT; Start 08/12/18 at 07:35 Insulin Aspart (Novolog Insulin Pen) 14 unit WITH LUNCH SC Last administered on 08/12/18 12:28; Admin Dose 14 UNIT; Start 08/12/18 at 11:30 Insulin Aspart (Novolog Insulin Pen) 14 unit WITH DINNER SC Last administered on 08/12/18 17:19; Admin Dose 14 UNIT; Start 08/12/18 at 17:35 Albuterol/ Ipratropium (Duoneb) 3 ml Q8H RESP THERAPY HHN Last administered on 08/13/18 08:31; Admin Dose 3 ML; Start 08/12/18 at 00:00 Miscellaneous Information 1 ea NOTE XX ; Start 08/11/18 at 18:30 Glucose (Glutose) 15 gm Q15M PRN PO DECREASED GLUCOSE; Start 08/11/18 at 18:30 Glucose (Glutose) 22.5 gm Q15M PRN PO DECREASED GLUCOSE; Start 08/11/18 at 18:30 Dextrose (D50w Syringe) 25 ml Q15M PRN IV DECREASED GLUCOSE; Start 08/11/18 at 18:30 Dextrose (D50w Syringe) 50 ml Q15M PRN IV DECREASED GLUCOSE; Start 08/11/18 at 18:30 Glucagon (Glucagen) 1 mg Q15M PRN IM DECREASED GLUCOSE; Start 08/11/18 at 18:30 Glucose (Glutose) 15 gm Q15M PRN BUCCAL DECREASED GLUCOSE; Start 08/11/18 at 18:30 Insulin Glargine (Lantus) 20 units DAILY@2000 SC ; Start 08/12/18 at 20:00 Meds reviewed: Yes Allergies Coded Allergies: No Known Allergy (Unverified , 08/11/18) Allergies Reviewed: Yes Labs/Studies Labs Reviewed: Reviewed by anesthesiologist Result Diagram: 08/13/18 0435 08/13/18 0435 Laboratory Tests 08/13/18 04:35 test: N/A Studies: ECG Pre-procedure Exam Last vitals Vital Signs Date Temp Pulse Resp B/P (MAP) Pulse Ox O2 O2 Flow FiO2 Time Delivery Rate 08/13/18 69 14 98 Nasal 2.0 08:33 Cannula 08/13/18 150/86 07:00 (107) 08/13/18 97.4 04:00 08/12/18 21 16:34 Airway: Adequate mouth opening, Adequate thyromental dist Mallampati: Mallampati II Teeth: Normal Lung: Normal Heart: Normal ASA Physical Status ASA physical status: 4 Emergency: None Planned Anesthetic General/MAC: ETT Planned Pain Management Parenteral pain med Pre-operative Attestations Prior to commencing anesthesia and surgery, the patient was re-evaluated, there was verification of: *The patient's identity *The results of appropriate recent lab work and preoperative vital signs *The above evaluation not changing prior to induction *Anesthetic plan, risk benefits, alternative and complications discussed with patient/family; questions answered; patient/family understands, accepts and wishes to proceed. CECY LANE MD Aug 13, 2018 09:25
[2018-08-13] MEDS ORDERED: AMINOCAPROIC ACID 5 GM INJ ONE ×2 (09:33→13:29)
[2018-08-13] MEDS ORDERED: FUROSEMIDE 20 MG INJ ONE ×3 (09:33→14:17)
[2018-08-13] MEDS ORDERED: CA CHLORIDE 10% 10 ML SYRINGE ONE (09:33)
[2018-08-13] MEDS ORDERED: POTASSIUM CHLORIDE 40 MEQ INJ ONE (09:33)
[2018-08-13] MEDS ORDERED: PHENYLephrine 10 MG INJ ONE (09:33)
[2018-08-13] MEDS ORDERED: NORepinephrine 4 MG INJ ONE (09:33)
[2018-08-13] MEDS ORDERED: MAGNESIUM SULFATE (MG) 50% 10 ML INJ ONE (09:33)
[2018-08-13] MEDS ORDERED: ALBUMIN HUMAN 25% 200 ML ONE (09:33)
[2018-08-13] MEDS ORDERED: MANNITOL 20% 500 ML ONE (09:33)
[2018-08-13] MEDS ORDERED: NA BICARBONATE 8.4% 50 ML SYG ONE (09:33)
[2018-08-13] MEDS ORDERED: LIDOCAINE 2% (SDV) 5 ML INJ ONE ×2 (09:33→13:31)
[2018-08-13] MEDS ORDERED: CEFAZOLIN 1 GM INJ ONE ×2 (10:29→13:28)
[2018-08-13] MEDS ORDERED: ALBUMIN HUMAN 5% 250 ML ONE (11:02)
[2018-08-13] MEDS ORDERED: POTASSIUM CHLORIDE 100 ML ONE (11:02)
--- NOTE | 2018-08-13 11:56 | CONS ---
Assessment/Plan Assessment/Plan Assessment/Plan (Daily) 1. acute kidney injury vs possible baseline CKD II with Cr 1.65 2. 3 V CAD- plan for CABG 3. H/o HTN 4. H/o HL 5. H/o DM II 6. H/o CAD with previous stent placement Plan: stop IV lasix diuresis, Cr 1.64- with CKD stage II Plan for CABG by CT surgery today, will monitor post operatively will follow up Consultation Date/Type/Reason Admit Date/Time Aug 11, 2018 at 09:20 Initial Consult Date 08/11/18 Type of Consult NEPHROLOGY Requesting Provider: NERIS BROTHERS MD Date/Time of Note DATE: 08/13/18 TIME: 11:56 24 HR Interval Summary Free Text/Dictation plan for CABG today, Cr 1.65, BP stable, afebrile, no chest pain Exam/Review of Systems Exam Vitals Vital Signs Date Temp Pulse Resp B/P (MAP) Pulse Ox O2 O2 Flow FiO2 Time Delivery Rate 08/13/18 71 18 149/77 98 Nasal 2.0 09:00 (101) Cannula 08/13/18 98.4 08:00 08/12/18 21 16:34 Intake and Output 08/12/18 08/12/18 08/13/18 1414:59 22:59 06:59 IntakeIntake Total 720 ml 440 ml 0 ml OutputOutput Total 575 ml 550 ml 150 ml BalanceBalance 145 ml -110 ml -150 ml Exam Constitutional: alert, awake Respiratory: clear to auscultation, normal air movement, diminished breath sounds Cardiovascular: regular rate and rhythm, nl pulses Gastrointestinal: soft, non-tender Musculoskeletal: nl extremities to inspection Extremities: normal pulses 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, nl mental status, nl speech, nl strength Skin: nl turgor Lymph: nl lymph nodes Results Result Diagram: 08/13/18 0435 08/13/18 0435 Results 24hrs Laboratory Tests Test 08/12/18 12:22 08/12/18 13:38 08/12/18 17:12 08/12/18 20:19 Bedside Glucose 213 223 H 142 110 Test 08/12/18 21:24 08/13/18 02:10 08/13/18 04:35 08/13/18 08:07 Bedside Glucose 96 146 179 White Blood Count 6.5 Red Blood Count 4.84 Hemoglobin 14.2 Hematocrit 42.9 Mean Corpuscular 88.6 Volume Mean Corpuscular 29.3 Hemoglobin Mean Corpuscular 33.1 Hemoglobin Concent Red Cell 14.5 Distribution Width Platelet Count 149 Mean Platelet Volume 11.6 H Immature 0.500 H Granulocytes % Neutrophils % 59.2 Lymphocytes % 28.4 Monocytes % 9.5 Eosinophils % 2.1 Basophils % 0.3 Nucleated Red Blood 0.0 Cells % Immature 0.030 Granulocytes # Neutrophils # 3.9 Lymphocytes # 1.9 Monocytes # 0.6 Eosinophils # 0.1 Basophils # 0.0 Nucleated Red Blood 0.0 Cells # Prothrombin Time 13.3 Prothrombin Time 1.0 Ratio INR International 1.00 Normalized Ratio Activated 25.8 Partial Thromboplast Time Sodium Level 141 Potassium Level 4.2 Chloride Level 103 Carbon Dioxide Level 29 Anion Gap 9 Blood Urea Nitrogen 30 H Creatinine 1.64 H Est Glomerular Filtrat Rate mL/min Glucose Level 162 Calcium Level 8.9 Total Bilirubin 0.7 Direct Bilirubin 0.00 Indirect Bilirubin 0.7 Aspartate Amino 28 Transf (AST/SGOT) Alanine 16 Aminotransferase (AL T/SGPT) Alkaline Phosphatase 76 Total Protein 7.3 Albumin 4.0 Globulin 3.30 H Albumin/Globulin 1.21 Ratio Medications Medication Current Medications Carvedilol (Coreg Cr) 40 mg DAILY PO Last administered on 08/12/18 08:51; Admin Dose 40 MG; Start 08/12/18 at 09:00 Amlodipine Besylate (Norvasc) 5 mg DAILY PO Last administered on 08/12/18 08:52; Admin Dose 5 MG; Start 08/11/18 at 13:00 Aspirin (Aspirin) 81 mg DAILY PO Last administered on 08/12/18 08:52; Admin Dose 81 MG; Start 08/11/18 at 13:00 Enoxaparin Sodium (Lovenox) 115 mg Q24H SC Last administered on 08/11/18at 15:00; Admin Dose 115 MG; Start 08/11/18 at 12:00 Atorvastatin Calcium (Lipitor) 40 mg HS PO Last administered on 08/12/18 20:24 ; Admin Dose 40 MG; Start 08/11/18 at 21:00 Hydralazine HCl (Apresoline) 10 mg Q4H PRN IV SBP >170; Start 08/11/18 at 12:00 Diagnostic Test (Pha) (Accu-Chek) 1 ea 02 XX ; Start 08/12/18 at 02:00 Insulin Aspart (Novolog Insulin Pen) 14 unit WITH BREAKFAST SC Last administered on 08/12/18at 08:55; Admin Dose 14 UNIT; Start 08/12/18 at 07:35 Insulin Aspart (Novolog Insulin Pen) 14 unit WITH LUNCH SC Last administered on 08/12/18at 12:28; Admin Dose 14 UNIT; Start 08/12/18 at 11:30 Insulin Aspart (Novolog Insulin Pen) 14 unit WITH DINNER SC Last administered on 08/12/18at 17:19; Admin Dose 14 UNIT; Start 08/12/18 at 17:35 Albuterol/ Ipratropium (Duoneb) 3 ml Q8H RESP THERAPY HHN Last administered on 08/13/18at 08:31; Admin Dose 3 ML; Start 08/12/18 at 00:00 Miscellaneous Information 1 ea NOTE XX ; Start 08/11/18 at 18:30 Glucose (Glutose) 15 gm Q15M PRN PO DECREASED GLUCOSE; Start 08/11/18 at 18:30 Glucose (Glutose) 22.5 gm Q15M PRN PO DECREASED GLUCOSE; Start 08/11/18 at 18:30 Dextrose (D50w Syringe) 25 ml Q15M PRN IV DECREASED GLUCOSE; Start 08/11/18 at 18:30 Dextrose (D50w Syringe) 50 ml Q15M PRN IV DECREASED GLUCOSE; Start 08/11/18 at 18:30 Glucagon (Glucagen) 1 mg Q15M PRN IM DECREASED GLUCOSE; Start 08/11/18 at 18:30 Glucose (Glutose) 15 gm Q15M PRN BUCCAL DECREASED GLUCOSE; Start 08/11/18 at 18:30 Insulin Glargine (Lantus) 20 units DAILY@2000 SC ; Start 08/12/18 at 20:00 DARRYL SOOD MD Aug 13, 2018 11:56
[2018-08-13] MEDS ORDERED: HEPARIN 10,000 UNITS/ML 1 ML INJ ONE (12:20)
[2018-08-13] MEDS ORDERED: ROCURONIUM 50 MG INJ ONE (13:31)
[2018-08-13] MEDS ORDERED: ETOMIDATE 20 MG INJ ONE (13:31)
[2018-08-13] MEDS ORDERED: PROTAMINE 250 MG INJ ONE (13:31)
[2018-08-13] MEDS ORDERED: hydrALAzine 20 MG INJ ONE (14:30)
[2018-08-13] MEDS ORDERED: FUROSEMIDE 10 ML ONE (14:57)
--- NOTE | 2018-08-13 15:22 | SIPON ---
Date/Time of Note Date/Time of Note DATE: 08/13/18 TIME: 15:20 Operative Report Preoperative Diagnosis CAD Postoperative Diagnosis same Operation/Procedure Performed CABGX5. WINN TO LAD, SVG TO RAMUS SEQUENCED TO OM, SVG TO PDA, SVG TO LV EXTENSION BRANCH Surgeon see signature line community program assistant RC SIFUENTES MD AND MILA SHRESTHA Second assist: A Anesthesia: general Estimated blood loss: 250 - 300 ml's Transfusion Required none Specimen NONE Grafts/Implants none Complications none LESIA DANIELLE MD Aug 13, 2018 15:22
[2018-08-13] MEDS ORDERED: POTASSIUM CHLORIDE 50 ML IVPB PRN (15:30)
[2018-08-13] MEDS ORDERED: ONDANSETRON 4 MG INJ IV PRN (15:30)
[2018-08-13] MEDS ORDERED: MAGNESIUM SULFATE 1 GM/D5W 100 ML IVPB PRN (15:30)
[2018-08-13] MEDS ORDERED: NITROGLYCERIN 50 MG/D5W (PMX) 250 ML IV SCH (15:30)
[2018-08-13] MEDS ORDERED: DOPamine-D5W 1.6 MG/ML 250 ML IV SCH ×2 (15:30→16:00)
[2018-08-13] MEDS ORDERED: DEXTROSE 50% 50 ML SYRINGE IV PRN ×2 (15:30)
[2018-08-13] MEDS ORDERED: HYDROmorphONE 0.5 MG/0.5 ML SYG IV PRN (15:30)
--- NOTE | 2018-08-13 15:49 | PAC ---
Date/Time of Note Date/Time of Note DATE: 08/13/18 TIME: 15:48 Post-Anesthesia Notes Post-Anesthesia Note Last documented vital signs Vital Signs Date Temp Pulse Resp B/P (MAP) Pulse Ox O2 O2 Flow FiO2 Time Delivery Rate 08/13/18 71 18 149/77 98 Nasal 2.0 09:00 (101) Cannula 08/13/18 98.4 08:00 08/12/18 21 16:34 Activity: WNL Respiratory function: WNL Cardiovascular function: WNL Mental status: Baseline Pain reasonably controlled: Yes Hydration appropriate: Yes Nausea/Vomiting absent: Yes Comments BP:112/56, P:78, Spo2:98%, T:99,[address] MD Aug 13, 2018 15:49
[2018-08-13] MEDS: NITROGLYCERIN 50 MG/D5W (PMX) 250 ML IV SCH (16:02)
[2018-08-13] MEDS: CEFAZOLIN 1 GM/50 ML (PMX) 50 ML IVPB SCH ×2 (16:59→23:38)
[2018-08-13] MEDS ORDERED: POTASSIUM CHLORIDE 40 MEQ, CALCIUM CHLORIDE 10% 1 GM in DEXTROSE 5%-0.225% NACL 1,000 ML IV SCH (17:00)
[2018-08-13] MEDS: ENOXAPARIN 60 MG/0.6 ML SYG SC SCH (17:34)
[2018-08-13] MEDS ORDERED: PROPOFOL 100 ML IV SCH (19:00)
[2018-08-13] MEDS: INSULIN HUMAN REGULAR 100 UNIT in SOD CHLORIDE 0.9% 99 ML IV SCH (19:00)
--- NOTE | 2018-08-13 19:15 | OPR ---
DATE OF OPERATION: 08/13/2018 PREOPERATIVE DIAGNOSES: 1. Severe 3-vessel coronary artery disease. 2. Angina. POSTOPERATIVE DIAGNOSES: 1. Severe 3-vessel coronary artery disease. 2. Angina. OPERATION PERFORMED: CABG x5, WINN to LAD, SVG to ramus sequence to obtuse marginal artery, SVG to P DA, SVG to left ventricular extension branch, endoscopic vein harvesting and epiaortic scanning of th e ascending aorta. SURGEON: Lesia Danielle MD TRANSITIONAL NURSE: Danial Castle MD SECOND BUDGET COORDINATOR: Anu Gray PA-C ANESTHESIOLOGIST: Burt Casiano MD ANESTHESIA: General endotracheal. COMPLICATIONS: None. FINDINGS: LV function was good pre and post-revascularization. His LAD was diffusely diseased. It was a 1 mm vessel and the flow in the WINN to LAD was 20 mL per minute. His OM was a 1.5 mm vessel a nd his ramus was a 1.5 mm vessel and the flow in this was 40 mL per minute. The PDA was 1.75 mm vess el and the flow in this was 22 mL per minute and the LV extension branch was a 2 mm vessel and the fl ow in this was 10 mL per minute. CARDIOPULMONARY BYPASS TIME: 132 minutes. CROSSCLAMP TIME: 93. INDICATION: The patient is a 73-year-old male diabetic with multiple previous stents, was admitted a fter catheterization showing severe 3-vessel coronary artery disease. He was referred for urgent CAB G. Risks, benefits, alternatives were explained. He understood and consented to the procedure. DESCRIPTION OF PROCEDURE: The patient was brought to the operating room and placed in supine positio n. He was induced and underwent general endotracheal intubation without complication. Lines were pl aced. Antibiotics were given. He was prepped and draped in usual sterile fashion. Median sternotom y was made simultaneous to endoscopic vein harvesting of the saphenous vein from right lower extremit y. WINN was taken down. Heparin was given. Pericardial well was established. The ascending aorta was scanned. There were no atheromas or plaques. Pursestring was placed in the ascending aorta foll owed by the right atrium. We cannulated the ascending aorta followed by 2-stage venous cannula in th e right atrium. We also placed in the ascending aortic vent. Once all lines were in place, we comme nced cardiopulmonary bypass. We placed a crossclamp and arrested the heart using antegrade cardiople valentin and topical ice. Once the heart was arrested, we identified the obtuse marginal artery, made art eriotomy, extended with Zapata scissors, anastomosed our vein graft using 7-0 Prolene in running fashi on in end-to-side manner. We then identified the ramus and performed [id number]-hb-ozah anastomosis using 7-0 Prolene. We cut the vein graft to length. We identified the PDA, made arteriotomy through with Zapata scissors and anastomosed our vein graft using 7-0 Prolene in running fashion in end-to-side man ner. The vein grafts were cut to length. We then identified the LV extension branch just after the bifurcation in the distal RCA. We made arteriotomy, extended with Zapata scissors, anastomosed our ve in graft using 7-0 Prolene in running fashion in end-to-side manner. We rewarmed the patient, gave w arm blood and then removed the crossclamp and cardioverted him back to normal sinus rhythm. We place d ventricular and atrial pacing wires. We placed partial clamp, made 3 aortotomies and anastomosed o ur vein graft using 5-0 Prolene in a running fashion in end-to-side manner. The partial clamp was re moved. Vein grafts were deaired. Distal hemostasis was achieved. We then began ventilating and wea emmanuel the patient off cardiopulmonary bypass. Once he was off bypass, we placed our pleural tube and t he anterior mediastinal tube. We achieved hemostasis and then closed the chest using interrupted cab les followed by closure of the fascia using 0 Vicryl followed by closure of skin using 4-0 Monocryl i n subcuticular fashion. Lower extremity incisions were closed using 3-0 Vicryl for the deep layer an d 4-0 Monocryl for the skin. Dressings were applied. The patient was taken to the ICU in critical b ut stable condition. Dictated By: LESIA DANIELLE MD AA/NTS Conf#: [id number] DID#: [id number] CC: ALONDRA GILBERT MD; NERIS BROTHERS MD;*EndCC*
[2018-08-13] MEDS: ATORVASTATIN 40 MG TAB PO SCH (20:33)
[2018-08-13] MEDS: FAMOTIDINE 20 MG INJ IV SCH (20:36)
[2018-08-13] MEDS: HYDROmorphONE 0.5 MG/0.5 ML SYG IV PRN (21:36)
[2018-08-13] MEDS: MILRINONE LACTATE 100 ML IV SCH (21:46)
[2018-08-13] MEDS: IPRATROPIUM (HFA) 12.9 GM INHALER INH SCH (22:11)
[2018-08-13] MEDS: LEVALBUTEROL (HFA) 15 GM INHALER INH SCH (22:11)
[2018-08-13] MEDS: ALBUMIN HUMAN 5% 250 ML IV PRN ×2 (22:18→23:45)
[2018-08-14] VITALS (99 sets, daily range): BP systolic 88–151; BP diastolic 47–65; PULSE 78–122; RESP 9–39; TEMP 97.9–100.3
[2018-08-14] MEDS ORDERED: PHENYLephrine 40 MG in DEXTROSE 5% 246 ML IV SCH (01:00)
[2018-08-14] MEDS: ACCU-CHEK XX SCH ×24 (01:04→23:00)
[2018-08-14] MEDS: IPRATROPIUM (HFA) 12.9 GM INHALER INH SCH ×4 (02:01→19:05)
[2018-08-14] MEDS: LEVALBUTEROL (HFA) 15 GM INHALER INH SCH ×4 (02:01→19:05)
[2018-08-14] MEDS ORDERED: EPINEPHrine 4 MG in SOD CHLORIDE 0.9% 246 ML IV SCH (03:30)
[2018-08-14] MEDS: MIDAZOLAM (DRIP) 50 mg/50 mL 50 ML IV SCH ×3 (04:15→19:17)
[2018-08-14] MEDS: FENTAnyl (DRIP) 1000 mcg/100mL 100 ML IV SCH (04:22)
[2018-08-14] MEDS: MILRINONE LACTATE 100 ML IV SCH ×2 (06:33→19:17)
--- NOTE | 2018-08-14 06:33 | PN ---
Date/Time of Note Date/Time of Note DATE: 08/14/18 TIME: 06:31 Assessment/Plan Lines/Catheters IV Catheter Type (from Nrs): Cordis Burkett in Place (from Nrs): Yes Assessment/Plan Assessment/Plan intubated on 80% FIO2, continue weaning FIO2, leave epi and primacor on for today. creat elevated to 2.5 but making good urine. minimal chest tube output. will start plavix for diffuse small CAD. Exam/Review of Systems Vital Signs Vitals Vital Signs Date Temp Pulse Resp B/P (MAP) Pulse Ox O2 O2 Flow FiO2 Time Delivery Rate 08/14/18 85 17 120/54 100 06:15 (76) 08/14/18 Mechanical 06:00 Ventilator 08/14/18 99.6 06:00 08/14/18 90 05:38 08/13/18 2.0 09:00 Intake and Output 08/13/18 08/13/18 08/14/18 1515:00 23:00 07:00 IntakeIntake Total 3096.177 ml 976.676 ml OutputOutput Total 30 ml 2538 ml 404 ml BalanceBalance -30 ml 558.177 ml 572.676 ml Results Result Diagram: 08/14/18 0430 08/14/18 0430 LESIA DANIELLE MD Aug 14, 2018 06:33
[2018-08-14] MEDS: INSULIN HUMAN REGULAR 100 UNIT in SOD CHLORIDE 0.9% 99 ML IV SCH ×2 (07:22→22:04)
--- NOTE | 2018-08-14 08:04 | CONS ---
Assessment/Plan Assessment/Plan Hospital Course (Demo Recall) Cardiogenic shock: low cardiac index post-op possibly from transient myocardial stunning which should improve. Per Dr. Howell EF remained preserved post-op On milrinone and epi. Pressures ok otherwise and good UOP Acute respiratory failure: Remains on vent post-op at FiO2 80%. Will be weaned Acute on chronic renal failure: Cr baseline 1.6. Up to 2.5 now. Likely hemodynamics and cardiorenal s/p CABG x5 08/13/18: WINN to LAD, SVG to ramus sequence to obtuse marginal art anna, SVG to PDA, SVG to left ventricular extension branch. Difficult case per Dr. Howell with poor targets. CAD: s/p multiple prior PCIs. Cath 08/11/18 with multivessel disease. s/p CABG above Acute on chronic diastolic CHF: Diuresed on admission and now euvolemic Recent left femoral DVT: on Eliquis as outpt. DM HT HL -wean milrinone and epinephrine to keep CI >2-2.2 -started on plavix so will decrease ASA to 81mg -per my discussion with Dr. Howell, ok for lovenox. Continue 1mg/kg daily with CKD. If renal function continues to worsen, will have to switch to heparin drip instead or restart Eliquis if ok with surgery -vent weaning per pulm -lipitor 40mg -hold coreg cr 40mg and amlodipine 5mg >40 min critical care time Consultation Date/Type/Reason Admit Date/Time Aug 11, 2018 at 09:20 Initial Consult Date 08/11/18 Type of Consult Cardiology Requesting Provider: NERIS BROTHERS MD Date/Time of Note DATE: 08/14/18 TIME: 07:52 24 HR Interval Summary Free Text/Dictation s/p CABG x 5 yesterday. Remain on vent at 80% FiO2. Had drop in cardiac index and is now on epi and milrinone this am. Good UOP. PA pressure and CVP ok. Pt is sedated but arousable. He follows commands appropriately and denies any discomfort Exam/Review of Systems Vital Signs Vitals Vital Signs Date Temp Pulse Resp B/P (MAP) Pulse Ox O2 O2 Flow FiO2 Time Delivery Rate 08/14/18 84 17 123/54 99 06:45 (77) 08/14/18 Mechanical 06:30 Ventilator 08/14/18 99.6 06:00 08/14/18 90 05:38 08/13/18 2.0 09:00 Intake and Output 08/13/18 08/13/18 08/14/18 1515:00 23:00 07:00 IntakeIntake Total 3096.177 ml 1015.480 ml OutputOutput Total 30 ml 2538 ml 404 ml BalanceBalance -30 ml 558.177 ml 611.480 ml Exam Constitutional: alert ENMT: intubated Neck: supple; No jvd (unabel to examine ) Respiratory: diminished breath sounds; No clear to auscultation Cardiovascular: regular rate and rhythm; No edema, No systolic murmur Gastrointestinal: soft, non-tender; No distended 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: nl mental status; No nl speech Labs Result Diagram: 08/14/180 08/14/18429 Results 24hrs Laboratory Tests Test 08/13/18 08:07 08/13/18 15:15 08/13/18 15:45 08/13/18 16:01 Bedside Glucose 179 123 132 Blood Gas Blood arterial Specimen Source Arterial Blood 08/13/2018 4:15: Date Drawn 49 PM Arterial Blood 7.407 pH (Temp corrected ) Arterial Blood 37.1 pCO2 (Temp correct) Arterial Blood 75.9 L pO2 (Temp corrected ) Arterial Blood 22.8 HCO3 Arterial Blood -1.5 Base Excess Arterial Blood 94.6 L Oxygen Saturati on Rogelio Test N/A Arterial Blood A-Line Gas Puncture Site Arterial 0.3 Blood Carboxyhe moglobin Arterial Blood 0.4 Methemoglobin Blood Gas A-a 600.0 H O2 Differential Oxyhemoglobin 93.9 Percent Blood Gas 37.0 Temperature Blood Gas 14.0 Respiration Rate Blood Gas 15 Actual Respiration Rat e Blood Gas VENT - AC Modality FiO2 100.0 Blood Gas Tidal 650.0 Volume Blood Gas Low 5.0 PEEP Setting Blood Gas Shukri [employer] Notified Whom Blood Gas 08/13/2018 4:34: Notified Time 04 PM Test 08/13/18 16:35 08/13/18 16:37 08/13/18 17:07 08/13/18 18:56 White Blood 10.0 # Count Red Blood Count 3.87 #L Hemoglobin 11.4 L Hematocrit 34.3 #L Mean 88.6 Corpuscular Volume Mean 29.5 Corpuscular Hemoglobin Mean 33.2 Corpuscular Hemoglobin Conc ent Red Cell 14.5 Distribution Width Platelet Count 101 #L Mean Platelet 11.3 H Volume Immature 0.900 H Granulocytes % Neutrophils % 78.7 H Lymphocytes % 9.2 L Monocytes % 10.3 Eosinophils % 0.7 Basophils % 0.2 Nucleated Red 0.0 Blood Cells % Immature 0.090 H Granulocytes # Neutrophils # 7.9 H Lymphocytes # 0.9 Monocytes # 1.0 H Eosinophils # 0.1 Basophils # 0.0 Nucleated Red 0.0 Blood Cells # Prothrombin 16.3 #H Time Prothrombin 1.3 Time Ratio INR 1.30 International Normalized Rati o Activated 25.8 Partial Thrombo plast Time Sodium Level 140 Potassium Level 4.5 Chloride Level 108 Carbon Dioxide 24 Level Anion Gap 8 Blood Urea 29 H Nitrogen Creatinine 1.91 H Est Glomerular Filtrat Rate mL/min Glucose Level 131 Calcium Level 8.5 Magnesium Level 2.5 Blood Gas BLMV Specimen Source Arterial Blood 08/13/2018 4:45: Date Drawn 22 PM Arterial Blood VENOUS LINE Gas Puncture Site Rogelio Test N/A Mixed Venous 33.8 Blood PO2 Mixed Venous 62.8 L Blood O2 Saturation Mixed Venous 11.8 Blood Total Hemoglobi n Mixed Venous 62.5 Blood Oxyhemogl obin Mixed Venous 0.1 Bld Carboxyhemo globin Mixed Venous 0.4 Blood Methemogl obin Blood Gas 37.0 Temperature Blood Gas 14.0 Respiration Rate Blood Gas 15 Actual Respiration Rat e Blood Gas VENT - AC Modality FiO2 100.0 Blood Gas Tidal 650.0 Volume Blood Gas Low 5.0 PEEP Setting Blood Gas Shukri [employer] Notified Whom Blood Gas 08/13/2018 4:53: Notified Time 56 PM Bedside Glucose 136 186 Test 08/13/18 20:09 08/13/18 20:56 08/13/18 21:02 08/13/18 21:29 Bedside Glucose 211 144 Blood Gas BLMV Specimen Source Arterial Blood 08/13/2018 9:26: Date Drawn 22 PM Arterial Blood 7.374 pH (Temp corrected ) Arterial Blood 37.7 pCO2 (Temp correct) Arterial Blood 167.3 H pO2 (Temp corrected ) Arterial Blood 21.5 L HCO3 Arterial Blood -3.3 L Base Excess Arterial Blood 98.7 Oxygen Saturati on Rogelio Test N/A Arterial Blood A-Line Gas Puncture Site Arterial 0.3 Blood Carboxyhe moglobin Arterial Blood 0.3 Methemoglobin Mixed Venous 7.345 Blood pH Mixed Venous 38.1 L Blood PCO2 Mixed Venous 33.1 Blood PO2 Mixed Venous 20.3 L Blood HCO3 Mixed Venous -4.9 Blood Base Excess Mixed Venous 59.0 L Blood O2 Saturation Mixed Venous 10.4 Blood Total Hemoglobi n Mixed Venous 58.6 Blood Oxyhemogl obin Mixed Venous 0.3 Bld Carboxyhemo globin Mixed Venous 0.3 Blood Methemogl obin Blood Gas A-a 641.8 O2 Differential Oxyhemoglobin 98.1 Percent Blood Gas 37.0 Temperature Blood Gas 14.0 Respiration Rate Blood Gas 14 Actual Respiration Rat e Blood Gas VENT - AC Modality FiO2 100.0 Blood Gas Tidal 650.0 Volume Blood Gas Low 5.0 PEEP Setting Blood Gas 27.0 Inspiratory Pressure Blood Gas TERELL ASENCIO Notified Whom Blood Gas 08/13/2018 9:38: Notified Time 47 PM Sodium Level 140 Potassium Level 4.6 Chloride Level 110 Carbon Dioxide 23 Level Anion Gap 7 Blood Urea 32 H Nitrogen Creatinine 2.11 H Est Glomerular Filtrat Rate mL/min Glucose Level 196 Calcium Level 8.5 Magnesium Level 2.3 Test 08/13/18 22:02 08/13/18 23:05 08/14/18 01:03 08/14/18 02:01 Bedside Glucose 178 208 223 H 218 Test 08/14/18 03:06 08/14/18 04:07 08/14/18 04:30 08/14/18 04:42 Bedside Glucose 201 195 White Blood 10.6 Count Red Blood Count 3.55 L Hemoglobin 10.5 L Hematocrit 31.7 L Mean 89.3 Corpuscular Volume Mean 29.6 Corpuscular Hemoglobin Mean 33.1 Corpuscular Hemoglobin Conc ent Red Cell 14.8 H Distribution Width Platelet Count 109 L Mean Platelet 12.2 H Volume Immature 0.500 H Granulocytes % Neutrophils % 77.7 H Lymphocytes % 11.8 L Monocytes % 9.7 Eosinophils % 0.1 Basophils % 0.2 Nucleated Red 0.0 Blood Cells % Immature 0.050 H Granulocytes # Neutrophils # 8.2 H Lymphocytes # 1.2 Monocytes # 1.0 H Eosinophils # 0.0 Basophils # 0.0 Nucleated Red 0.0 Blood Cells # Prothrombin 15.1 H Time Prothrombin 1.2 Time Ratio INR 1.18 International Normalized Rati o Activated 28.6 Partial Thrombo plast Time Sodium Level 140 Potassium Level 4.8 Chloride Level 110 Carbon Dioxide 24 Level Anion Gap 6 Blood Urea 36 H Nitrogen Creatinine 2.56 H Est Glomerular Filtrat Rate mL/min Glucose Level 180 Calcium Level 8.9 Magnesium Level 2.4 Blood Gas BLMV Specimen Source Arterial Blood 08/14/2018 4:40 Date Drawn :51 AM Arterial Blood PUL ART LINE Gas Puncture Site Rogelio Test N/A Mixed Venous 7.359 Blood pH Mixed Venous 43.8 Blood PCO2 Mixed Venous 35.2 Blood PO2 Mixed Venous 24.1 Blood HCO3 Mixed Venous -1.4 Blood Base Excess Mixed Venous 65.5 Blood O2 Saturation Mixed Venous 11.5 Blood Total Hemoglobi n Mixed Venous 65.0 Blood Oxyhemogl obin Mixed Venous 0.3 Bld Carboxyhemo globin Mixed Venous 0.4 Blood Methemogl obin Blood Gas A-a 634.0 O2 Differential Blood Gas 37.0 Temperature Blood Gas 14.0 Respiration Rate Blood Gas 15 Actual Respiration Rat e Blood Gas VENT - AC Modality FiO2 100.0 Blood Gas Tidal 650.0 Volume Blood Gas Low 7.0 PEEP Setting Blood Gas 30.0 Inspiratory Pressure Blood Gas TERELL ASENCIO Notified Whom Blood Gas 08/14/2018 4:53 Notified Time :40 AM Test 08/14/18 05:00 08/14/18 05:03 08/14/18 06:00 08/14/18 07:02 Blood Gas Blood arterial Specimen Source Arterial Blood 08/14/2018 4:35: Date Drawn 12 AM Arterial Blood 7.397 pH (Temp corrected ) Arterial Blood 36.9 pCO2 (Temp correct) Arterial Blood 144.1 H pO2 (Temp corrected ) Arterial Blood 22.2 HCO3 Arterial Blood -2.2 Base Excess Arterial Blood 98.3 Oxygen Saturati on Rogelio Test N/A Arterial Blood A-Line Gas Puncture Site Arterial 0.3 Blood Carboxyhe moglobin Arterial Blood 0.3 Methemoglobin Blood Gas A-a 532.0 H O2 Differential Oxyhemoglobin 97.7 Percent Blood Gas 37.0 Temperature Blood Gas 14.0 Respiration Rate Blood Gas 15 Actual Respiration Rat e Blood Gas VENT - AC Modality FiO2 100.0 Blood Gas Tidal 650.0 Volume Blood Gas Low 7.0 PEEP Setting Blood Gas 30.0 Inspiratory Pressure Blood Gas TERELL ASENCIO Notified Whom Blood Gas 08/14/2018 4:47: Notified Time 15 AM Bedside Glucose 195 195 180 Medications Medications Current Medications Enoxaparin Sodium (Lovenox) 115 mg Q24H SC Last administered on 08/11/18at 15:00; Admin Dose 115 MG; Start 08/11/18 at 12:00 Atorvastatin Calcium (Lipitor) 40 mg HS PO Last administered on 08/12/18at 20:24; Admin Dose 40 MG; Start 08/11/18 at 21:00 Hydralazine HCl (Apresoline) 10 mg Q4H PRN IV SBP >170; Start 08/11/18 at 12:00 Diagnostic Test (Pha) (Accu-Chek) 1 ea Q1H XX Last administered on 08/14/18at 07:03; Admin Dose 1 EA; Start 08/13/18 at 17:00 Insulin Human Regular 100 unit/ Sodium Chloride 100 ml @ 0 mls/hr PER PROTOCOL IV Last administered on 08/14/18at 07:22; Admin Dose 9 MLS/HR; Start 08/13/18 at 17:00 Miscellaneous Information (* Miscellaneous Pharmacy Order) Treatment of Hypoglycemia: 1.BG 51... Per protocol XX ; Start 08/13/18 at 15:30 Dextrose (D50w Syringe) 25 ml Q15M PRN IV .DECREASED GLUCOSE; Start 08/13/18 at 15:30 Dextrose (D50w Syringe) 50 ml Q15M PRN IV .DECREASED GLUCOSE; Start 08/13/18 at 15:30 Cefazolin Sodium 50 ml @ 100 mls/hr Q8H IVPB Last administered on 08/13/18at 23:38; Admin Dose 100 MLS/HR; Start 08/13/18 at 15:30; Stop 08/14/18 at 07:59 Hydromorphone HCl (Dilaudid) 0.2 mg Q15M PRN IV PAIN LEVEL 1-5 Last administered on 08/13/18at 21:36; Admin Dose 0.2 MG; Start 08/13/18 at 15:30 Hydromorphone HCl (Dilaudid) 0.4 mg Q15M PRN IV PAIN LEVEL 6-10; Start 08/13/18 at 15:30 Oxycodone/ Acetaminophen (Percocet (5/ 325)) 1 tab Q3H PRN PO PAIN LEVEL 1-5; Start 08/13/18 at 15:30 Ondansetron HCl (Zofran Inj) 4 mg Q6H PRN IV NAUSEA AND/OR VOMITING; Start 08/13/18 at 15:30 Famotidine (Pepcid Iv) 20 mg DAILY IV Last administered on 08/13/18at 20:36; Admin Dose 20 MG; Start 08/13/18 at 20:00 Acetaminophen (Tylenol Tab) 650 mg Q3H PRN PO ELEVATED TEMPERATURE; Start 08/13 at 15:30 Potassium Chloride 50 ml @ 50 mls/hr SEE DIRECTION PRN IVPB K+ LEVEL; Start 08/13/18 at 15:30 Magnesium Sulfate/ Dextrose 100 ml @ 100 mls/hr PRN PRN IVPB PENDING LAB VALUE; Start 08/13/18 at 15:30 Aspirin (Halfprin) 162 mg DAILY PO ; Start 08/14/18 at 09:00 Nitroglycerin/ Dextrose 250 ml @ 1.5 mls/hr PER PROTOCOL IV Last administered on 08/13/18at 16:02; Admin Dose 7.5 MLS/HR; Start 08/13/18 at 16:00 Dopamine HCl/ Dextrose 250 ml @ 8.61 mls/hr PER PROTOCOL IV Last administered on 08/13/18at 16:05; Admin Dose 12.915 MLS/HR; Start 08/13/18 at 16:00 Albumin Human 250 ml @ 500 mls/hr PRN PRN IV CVP< 8, OR SBP<90 Last administered on 08/13/18at 23:45; Admin Dose 500 MLS/HR; Start 08/13/18 at 17:00 Levalbuterol (Xopenex Hfa) 4 puff Q6H RESP THERAPY INH Last administered on at 02:01; Admin Dose 4 PUFF; Start 08/13/18 at 22:00 Ipratropium [place] (Atrovent Hfa) 4 puff Q6H RESP THERAPY INH Last administered on 08/14/18at 02:01; Admin Dose 4 PUFF; Start 08/13/18 at 21:00 Milrinone Lactate 100 ml @ 12.915 mls/ hr TITRATE IV Last administered on 08/14/18at 06:33; Admin Dose 12.054 MLS/HR; Start 08/13/18 at 21:30 Phenylephrine HCl 40 mg/Dextrose 250 ml @ 37.5 mls/hr TITRATE IV Last administered on 08/14/18at 00:57; Admin Dose 7.5 MLS/HR; Start 08/14/18 at 01:00 Epinephrine 4 mg/ Sodium Chloride 250 ml @ 1.88 mls/hr TITRATE IV Last administered on 08/14/18at 04:24; Admin Dose 3.75 MLS/HR; Start 08/14/18 at 03:30 Midazolam HCl 50 ml @ 1 mls/hr TITRATE IV Last administered on 08/14/18at 04:15; Admin Dose 2 MLS/HR; Start 08/14/18 at 03:30 Fentanyl 100 ml @ 2.5 mls/hr TITRATE IV Last administered on 08/14/18at 04:22; Admin Dose 2.5 MLS/HR; Start 08/14/18 at 03:30 Clopidogrel Bisulfate (plaVIX) 75 mg DAILY NGT ; Start 08/14/18 at 09:00 ALONDRA GILBERT Aug 14, 2018 08:02
[2018-08-14] MEDS: CEFAZOLIN 1 GM/50 ML (PMX) 50 ML IVPB SCH (08:33)
[2018-08-14] MEDS ORDERED: ASPIRIN (EC) 81 MG TAB PO SCH (09:00)
--- NOTE | 2018-08-14 09:29 | CONS ---
Assessment/Plan Assessment/Plan Assessment/Plan (Daily) Chest x-ray showing minimal pulmonary vascular congestion. Ventilator setting; AC of 14, tidal volume 650, PEEP of 7, 70% FiO2. Assessment recommendations; 1. patient status post CABG 2. Likely underlying baseline chronic renal insufficiency with acute injury. 3. History of hypertension and diabetes. 4. COPD. 5. Mild CHF. 6. Prior history of pancreatitis. 7. Anemia and thrombocytopenia. Continue current supportive care. Decrease FiO2 as well as started volume. Obtain follow-up chest x-ray 24 hours. 40 minutes of critical care time was spent evaluating the patient. Consultation Date/Type/Reason Admit Date/Time Aug 11, 2018 at 09:20 Date of Consultation: Aug 14, 2018 Type of Consult Pulmonary/critical care Patient is a 73-year-old male who was admitted for elective CABG surgery. Surgery was uneventful. Patient could not be immediately extubated and was transferred to ICU intubated. By the time I saw him, patient completely awake and responsive appropriately orally intubated and did not appear to be in any distress whatsoever. History has been obtained from medical records. Past medical history; 1. History of hypertension 2. Diabetes. 3. Diabetic nephropathy neuropathy and retinopathy. 4. Depression 5. CHF 6. History of pancreatitis 7. Possibly underlying COPD as well Medications; reviewed. Patient is on insulin drip 9 units/h, milrinone 0.35 mics per kilo gram per minute. Versed 4 mg/h. Other medications were reviewed as well. Allergies; none. Social history; evidently positive for smoking. Family; patient is a . Occupational history not available. Review of systems; very limited review of systems will be obtained. Patient denies any shortness of breath. General exam; elderly male, morbidly obese, orally intubated, awake, currently in no distress. Date/Time of Note DATE: 08/14/18 TIME: 09:24 Past Medical History Medical History: angina, congestive heart failure, coronary artery disease, deep vein thrombosis, diabetes, diverticulitis, gallstones, GERD, high cholesterol, hypertension, pancreatitis, renal disease, urinary tract infection Home Meds Reported Medications Insulin Aspart* (Novolog Insulin Pen*) 100 Unit/Ml Soln, 0 SC .SLIDING SCALE AC, EA AC MEALS 08/11/18 Insulin Detemir (Levemir Flextouch) 100 Unit/1 Ml Insuln.pen, 25 UNIT SQ QHS, EA 08/11/18 Potassium Chloride* (K-Dur*) 10 Meq Tab.prt.sr, 10 MEQ PO DAILY, TAB 08/11/18 Furosemide* (Furosemide*) 40 Mg Tablet, 40 MG PO DAILY, TAB 08/11/18 Aspirin (Low Dose Aspirin) 81 Mg Tablet.dr, 81 MG PO DAILY, #30 TAB 08/11/18 Apixaban* (Eliquis*) 5 Mg Tablet, 5 MG PO BID, TAB 08/11/18 Clonidine Hcl* (Clonidine Hcl*) 0.1 Mg Tab, 0.1 MG PO DAILY PRN for ELEVATED BLOOD PRESSURE, TAB 08/11/18 Carvedilol* (Coreg CR*) 40 Mg Capsr, 40 MG PO DAILY, #30 CAP 08/11/18 Rosuvastatin Calcium* (Crestor*) 40 Mg Tablet, 40 MG PO QHS, #30 TAB 08/11/18 Amlodipine Besylate* (Norvasc*) 5 Mg Tablet, 5 MG PO DAILY, TAB 08/11/18 Discontinued Reported Medications Carvedilol* (Coreg CR*) 80 Mg Cpmp.24hr, 80 MG PO HS 07/20/11 Clonidine Hcl* (Clonidine Hcl*) 0.2 Mg Tablet, 0.2 MG PO BID PRN 07/20/11 Insulin Aspart* (Novolog Insulin Vial*) 100 U/Ml Vial 10/14/10 Insulin Detemir* (Levemir*) 100 U/Ml Vial 10/14/10 Prasugrel Hydrochloride* (Effient*) 10 Mg Tablet 10/14/10 Pantoprazole* (Protonix*) 40 Mg Tablet. 10/14/10 Ramipril (Altace) 10 Mg Tablet 11/21/09 Medications Current Medications Enoxaparin Sodium (Lovenox) 115 mg Q24H SC Last administered on 08/11/18at 15:00; Admin Dose 115 MG; Start 08/11/18 at 12:00 Atorvastatin Calcium (Lipitor) 40 mg HS PO Last administered on 08/12/18at 20:24; Admin Dose 40 MG; Start 08/11/18 at 21:00 Hydralazine HCl (Apresoline) 10 mg Q4H PRN IV SBP >170; Start 08/11/18 at 12:00 Diagnostic Test (Pha) (Accu-Chek) 1 ea Q1H XX Last administered on 08/14/18at 07:03; Admin Dose 1 EA; Start 08/13/18 at 17:00 Insulin Human Regular 100 unit/ Sodium Chloride 100 ml @ 0 mls/hr PER PROTOCOL IV Last administered on 08/14/18at 07:22; Admin Dose 9 MLS/HR; Start 08/13/18 at 17:00 Miscellaneous Information (* Miscellaneous Pharmacy Order) Treatment of Hypoglycemia: 1.BG 51... Per protocol XX ; Start 08/13/18 at 15:30 Dextrose (D50w Syringe) 25 ml Q15M PRN IV .DECREASED GLUCOSE; Start 08/13/18 at 15:30 Dextrose (D50w Syringe) 50 ml Q15M PRN IV .DECREASED GLUCOSE; Start 08/13/18 at 15:30 Hydromorphone HCl (Dilaudid) 0.2 mg Q15M PRN IV PAIN LEVEL 1-5 Last administered on 08/13/18at 21:36; Admin Dose 0.2 MG; Start 08/13/18 at 15:30 Hydromorphone HCl (Dilaudid) 0.4 mg Q15M PRN IV PAIN LEVEL 6-10; Start 08/13/18 at 15:30 Oxycodone/ Acetaminophen (Percocet (5/ 325)) 1 tab Q3H PRN PO PAIN LEVEL 1-5; Start 08/13/18 at 15:30 Ondansetron HCl (Zofran Inj) 4 mg Q6H PRN IV NAUSEA AND/OR VOMITING; Start 08/13/18 at 15:30 Famotidine (Pepcid Iv) 20 mg DAILY IV Last administered on 08/13/18at 20:36; Admin Dose 20 MG; Start 08/13/18 at 20:00 Acetaminophen (Tylenol Tab) 650 mg Q3H PRN PO ELEVATED TEMPERATURE; Start 08/13/18 at 15:30 Potassium Chloride 50 ml @ 50 mls/hr SEE DIRECTION PRN IVPB K+ LEVEL; Start 08/13/18 at 15:30 Magnesium Sulfate/ Dextrose 100 ml @ 100 mls/hr PRN PRN IVPB PENDING LAB VALUE; Start 08/13/18 at 15:30 Nitroglycerin/ Dextrose 250 ml @ 1.5 mls/hr PER PROTOCOL IV Last administered on 08/13/18 16:02; Admin Dose 7.5 MLS/HR; Start 08/13/18 at 16:00 Dopamine HCl/ Dextrose 250 ml @ 8.61 mls/hr PER PROTOCOL IV Last administered on 08/13/18 16:05; Admin Dose 12.915 MLS/HR; Start 08/13/18 at 16:00 Albumin Human 250 ml @ 500 mls/hr PRN PRN IV CVP< 8, OR SBP<90 Last administered on 08/13/18 23:45; Admin Dose 500 MLS/HR; Start 08/13/18 at 17:00 Levalbuterol (Xopenex Hfa) 4 puff Q6H RESP THERAPY INH Last administered on 08/14/18 08:17; Admin Dose 4 PUFF; Start 08/13/18 at 22:00 Ipratropium Clayton (Atrovent Hfa) 4 puff Q6H RESP THERAPY INH Last administered on 08/14/18 08:17; Admin Dose 4 PUFF; Start 08/13/18 at 21:00 Milrinone Lactate 100 ml @ 12.915 mls/ hr TITRATE IV Last administered on 08/14/18 06:33; Admin Dose 12.054 MLS/HR; Start 08/13/18 at 21:30 Phenylephrine HCl 40 mg/Dextrose 250 ml @ 37.5 mls/hr TITRATE IV Last administered on 08/14/18 00:57; Admin Dose 7.5 MLS/HR; Start 08/14/18 at 01:00 Epinephrine 4 mg/ Sodium Chloride 250 ml @ 1.88 mls/hr TITRATE IV Last administered on 08/14/18 04:24; Admin Dose 3.75 MLS/HR; Start 08/14/18 at 03:30 Midazolam HCl 50 ml @ 1 mls/hr TITRATE IV Last administered on 08/14/18 04:15; Admin Dose 2 MLS/HR; Start 08/14/18 at 03:30 Fentanyl 100 ml @ 2.5 mls/hr TITRATE IV Last administered on 08/14/18 04:22; Admin Dose 2.5 MLS/HR; Start 08/14/18 at 03:30 Clopidogrel Bisulfate (plaVIX) 75 mg DAILY NGT ; Start 08/14/18 at 09:00 Aspirin (Halfprin) 81 mg DAILY PO ; Start 08/14/18 at 09:00 Allergies: Coded Allergies: No Known Allergy (Unverified , 08/11/18) Past Surgical History Past Surgical Hx: angioplasty (2003 and 2010.), endoscopy Social History Alcohol Use: rarely Smoking Status: Never smoker Drug Use: none Exam/Review of Systems Exam Vitals Vital Signs Date Temp Pulse Resp B/P (MAP) Pulse Ox O2 O2 Flow FiO2 Time Delivery Rate 08/14/18 87 08:00 08/14/18 80 08:00 08/14/18 17 123/54 99 06:45 (77) 08/14/18 Mechanical 06:30 Ventilator 08/14/18 99.6 06:00 08/13/18 2.0 09:00 Intake and Output 08/13/18 08/13/18 08/14/18 1515:00 23:00 07:00 IntakeIntake Total 3096.177 ml 1015.480 ml OutputOutput Total 30 ml 2538 ml 404 ml BalanceBalance -30 ml 558.177 ml 611.480 ml Exam HE ENT exam; supple neck, positive JVD. No lymphadenopathy. Midline trachea. No thyromegaly. Orally intubated. Chest exam; diminished but clear breath sounds. S1-S2 audible, no murmurs. Regular rhythm. Dressing applied to the sternum. Left-sided chest tube in place. Abdomen exam; soft, protuberant. No organomegaly. Nontender. Bowel sound audible. Extremity exam; no edema. Patient does have scars involving both lower extremity's. SANITARY CHEMIST exam; patient awake and appropriately responsive. Results Result Diagram: 08/14/18 0430 08/14/18 0430 Results 24hrs Laboratory Tests Test 08/13/18 15:15 08/13/18 15:45 08/13/18 16:01 08/13/18 16:35 Blood Gas Blood arterial Specimen Source Arterial Blood 08/13/2018 4:15: Date Drawn 49 PM Arterial Blood 7.407 pH (Temp corrected ) Arterial Blood 37.1 pCO2 (Temp correct) Arterial Blood 75.9 L pO2 (Temp corrected ) Arterial Blood 22.8 HCO3 Arterial Blood -1.5 Base Excess Arterial Blood 94.6 L Oxygen Saturati on Rogelio Test N/A Arterial Blood A-Line Gas Puncture Site Arterial 0.3 Blood Carboxyhe moglobin Arterial Blood 0.4 Methemoglobin Blood Gas A-a 600.0 H O2 Differential Oxyhemoglobin 93.9 Percent Blood Gas 37.0 Temperature Blood Gas 14.0 Respiration Rate Blood Gas 15 Actual Respiration Rat e Blood Gas VENT - AC Modality FiO2 100.0 Blood Gas Tidal 650.0 Volume Blood Gas Low 5.0 PEEP Setting Blood Gas DOMINIC Watt Notified Whom Blood Gas 08/13/2018 4:34: Notified Time 04 PM Bedside Glucose 123 132 White Blood 10.0 # Count Red Blood Count 3.87 #L Hemoglobin 11.4 L Hematocrit 34.3 #L Mean 88.6 Corpuscular Volume Mean 29.5 Corpuscular Hemoglobin Mean 33.2 Corpuscular Hemoglobin Conc ent Red Cell 14.5 Distribution Width Platelet Count 101 #L Mean Platelet 11.3 H Volume Immature 0.900 H Granulocytes % Neutrophils % 78.7 H Lymphocytes % 9.2 L Monocytes % 10.3 Eosinophils % 0.7 Basophils % 0.2 Nucleated Red 0.0 Blood Cells % Immature 0.090 H Granulocytes # Neutrophils # 7.9 H Lymphocytes # 0.9 Monocytes # 1.0 H Eosinophils # 0.1 Basophils # 0.0 Nucleated Red 0.0 Blood Cells # Prothrombin 16.3 #H Time Prothrombin 1.3 Time Ratio INR 1.30 International Normalized Rati o Activated 25.8 Partial Thrombo plast Time Sodium Level 140 Potassium Level 4.5 Chloride Level 108 Carbon Dioxide 24 Level Anion Gap 8 Blood Urea 29 H Nitrogen Creatinine 1.91 H Est Glomerular Filtrat Rate mL/min Glucose Level 131 Calcium Level 8.5 Magnesium Level 2.5 Test 08/13/18 16:37 08/13/18 17:07 08/13/18 18:56 08/13/18 20:09 Blood Gas BLMV Specimen Source Arterial Blood 08/13/2018 4:45: Date Drawn 22 PM Arterial Blood VENOUS LINE Gas Puncture Site Rogelio Test N/A Mixed Venous 33.8 Blood PO2 Mixed Venous 62.8 L Blood O2 Saturation Mixed Venous 11.8 Blood Total Hemoglobi n Mixed Venous 62.5 Blood Oxyhemogl obin Mixed Venous 0.1 Bld Carboxyhemo globin Mixed Venous 0.4 Blood Methemogl obin Blood Gas 37.0 Temperature Blood Gas 14.0 Respiration Rate Blood Gas 15 Actual Respiration Rat e Blood Gas VENT - AC Modality FiO2 100.0 Blood Gas Tidal 650.0 Volume Blood Gas Low 5.0 PEEP Setting Blood Gas Shukri, [employer] PROVIDER Notified Whom Blood Gas 08/13/2018 4:53: Notified Time 56 PM Bedside Glucose 136 186 211 Test 08/13/18 20:56 08/13/18 21:02 08/13/18 21:29 08/13/18 22:02 Blood Gas BLMV Specimen Source Arterial Blood 08/13/2018 9:26: Date Drawn 22 PM Arterial Blood 7.374 pH (Temp corrected ) Arterial Blood 37.7 pCO2 (Temp correct) Arterial Blood 167.3 H pO2 (Temp corrected ) Arterial Blood 21.5 L HCO3 Arterial Blood -3.3 L Base Excess Arterial Blood 98.7 Oxygen Saturati on Rogelio Test N/A Arterial Blood A-Line Gas Puncture Site Arterial 0.3 Blood Carboxyhe moglobin Arterial Blood 0.3 Methemoglobin Mixed Venous 7.345 Blood pH Mixed Venous 38.1 L Blood PCO2 Mixed Venous 33.1 Blood PO2 Mixed Venous 20.3 L Blood HCO3 Mixed Venous -4.9 Blood Base Excess Mixed Venous 59.0 L Blood O2 Saturation Mixed Venous 10.4 Blood Total Hemoglobi n Mixed Venous 58.6 Blood Oxyhemogl obin Mixed Venous 0.3 Bld Carboxyhemo globin Mixed Venous 0.3 Blood Methemogl obin Blood Gas A-a 641.8 O2 Differential Oxyhemoglobin 98.1 Percent Blood Gas 37.0 Temperature Blood Gas 14.0 Respiration Rate Blood Gas 14 Actual Respiration Rat e Blood Gas VENT - AC Modality FiO2 100.0 Blood Gas Tidal 650.0 Volume Blood Gas Low 5.0 PEEP Setting Blood Gas 27.0 Inspiratory Pressure Blood Gas LUIS MWIGS [employer] Notified Whom Blood Gas 08/13/2018 9:38: Notified Time 47 PM Bedside Glucose 144 178 Sodium Level 140 Potassium Level 4.6 Chloride Level 110 Carbon Dioxide 23 Level Anion Gap 7 Blood Urea 32 H Nitrogen Creatinine 2.11 H Est Glomerular Filtrat Rate mL/min Glucose Level 196 Calcium Level 8.5 Magnesium Level 2.3 Test 08/13/18 23:05 08/14/18 01:03 08/14/18 02:01 08/14/18 03:06 Bedside Glucose 208 223 H 218 201 Test 08/14/18 04:07 08/14/18 04:30 08/14/18 04:42 08/14/18 05:00 Bedside Glucose 195 White Blood 10.6 Count Red Blood Count 3.55 L Hemoglobin 10.5 L Hematocrit 31.7 L Mean 89.3 Corpuscular Volume Mean 29.6 Corpuscular Hemoglobin Mean 33.1 Corpuscular Hemoglobin Conc ent Red Cell 14.8 H Distribution Width Platelet Count 109 L Mean Platelet 12.2 H Volume Immature 0.500 H Granulocytes % Neutrophils % 77.7 H Lymphocytes % 11.8 L Monocytes % 9.7 Eosinophils % 0.1 Basophils % 0.2 Nucleated Red 0.0 Blood Cells % Immature 0.050 H Granulocytes # Neutrophils # 8.2 H Lymphocytes # 1.2 Monocytes # 1.0 H Eosinophils # 0.0 Basophils # 0.0 Nucleated Red 0.0 Blood Cells # Prothrombin 15.1 H Time Prothrombin 1.2 Time Ratio INR 1.18 International Normalized Rati o Activated 28.6 Partial Thrombo plast Time Sodium Level 140 Potassium Level 4.8 Chloride Level 110 Carbon Dioxide 24 Level Anion Gap 6 Blood Urea 36 H Nitrogen Creatinine 2.56 H Est Glomerular Filtrat Rate mL/min Glucose Level 180 Calcium Level 8.9 Magnesium Level 2.4 Blood Gas BLMV Blood Specimen arterial Source Arterial Blood 08/14/2018 4:40: 08/14/2018 4:35 Date Drawn 51 AM :12 AM Arterial Blood PUL ART LINE A-Line Gas Puncture Site Rogelio Test N/A N/A Mixed Venous 7.359 Blood pH Mixed Venous 43.8 Blood PCO2 Mixed Venous 35.2 Blood PO2 Mixed Venous 24.1 Blood HCO3 Mixed Venous -1.4 Blood Base Excess Mixed Venous 65.5 Blood O2 Saturation Mixed Venous 11.5 Blood Total Hemoglobi n Mixed Venous 65.0 Blood Oxyhemogl obin Mixed Venous 0.3 Bld Carboxyhemo globin Mixed Venous 0.4 Blood Methemogl obin Blood Gas A-a 634.0 532.0 H O2 Differential Blood Gas 37.0 37.0 Temperature Blood Gas 14.0 14.0 Respiration Rate Blood Gas 15 15 Actual Respiration Rat e Blood Gas VENT - AC VENT - AC Modality FiO2 100.0 100.0 Blood Gas Tidal 650.0 650.0 Volume Blood Gas Low 7.0 7.0 PEEP Setting Blood Gas 30.0 30.0 Inspiratory Pressure Blood Gas WTERELL WALLACE RCP Notified Whom Blood Gas 08/14/2018 4:53: 08/14/2018 4:47 Notified Time 40 AM :15 AM Arterial Blood 7.397 pH (Temp corrected ) Arterial Blood 36.9 pCO2 (Temp correct) Arterial Blood 144.1 H pO2 (Temp corrected ) Arterial Blood 22.2 HCO3 Arterial Blood -2.2 Base Excess Arterial Blood 98.3 Oxygen Saturati on Arterial 0.3 Blood Carboxyhe moglobin Arterial Blood 0.3 Methemoglobin Oxyhemoglobin 97.7 Percent Test 08/14/18 05:03 08/14/18 06:00 08/14/18 07:02 08/14/18 08:06 Bedside Glucose 195 195 180 180 Test 08/14/18 09:13 Bedside Glucose 160 Medications Medication Current Medications Enoxaparin Sodium (Lovenox) 115 mg Q24H SC Last administered on 08/11/18at 15:00; Admin Dose 115 MG; Start 08/11/18 at 12:00 Atorvastatin Calcium (Lipitor) 40 mg HS PO Last administered on 08/12/18at 2 0:24; Admin Dose 40 MG; Start 08/11/18 at 21:00 Hydralazine HCl (Apresoline) 10 mg Q4H PRN IV SBP >170; Start 08/11/18 at 12:00 Diagnostic Test (Pha) (Accu-Chek) 1 ea Q1H XX Last administered on 08/14/18at 07:03; Admin Dose 1 EA; Start 08/13/18 at 17:00 Insulin Human Regular 100 unit/ Sodium Chloride 100 ml @ 0 mls/hr PER PROTOCOL IV Last administered on 08/14/18at 07:22; Admin Dose 9 MLS/HR; Start 08/13/18 at 17:00 Miscellaneous Information (* Miscellaneous Pharmacy Order) Treatment of Hypogly cemia: 1.BG 51... Per protocol XX ; Start 08/13/18 at 15:30 Dextrose (D50w Syringe) 25 ml Q15M PRN IV .DECREASED GLUCOSE; Start 08/13/18 at 15:30 Dextrose (D50w Syringe) 50 ml Q15M PRN IV .DECREASED GLUCOSE; Start 08/13/18 at 15:30 Hydromorphone HCl (Dilaudid) 0.2 mg Q15M PRN IV PAIN LEVEL 1-5 Last administered on 08/13/18at 21:36; Admin Dose 0.2 MG; Start 08/13/18 at 15:30 Hydromorphone HCl (Dilaudid) 0.4 mg Q15M PRN IV PAIN LEVEL 6-10; Start 08/13/18 at 15:30 Oxycodone/ Acetaminophen (Percocet (5/ 325)) 1 tab Q3H PRN PO PAIN LEVEL 1-5; Start 08/13/18 at 15:30 Ondansetron HCl (Zofran Inj) 4 mg Q6H PRN IV NAUSEA AND/OR VOMITING; Start 08/13/18 at 15:30 Famotidine (Pepcid Iv) 20 mg DAILY IV Last administered on 08/13/18at 20:36; Admin Dose 20 MG; Start 08/13/18 at 20:00 Acetaminophen (Tylenol Tab) 650 mg Q3H PRN PO ELEVATED TEMPERATURE; Start 08/13/18 at 15:30 Potassium Chloride 50 ml @ 50 mls/hr SEE DIRECTION PRN IVPB K+ LEVEL; Start 08/13/18 at 15:30 Magnesium Sulfate/ Dextrose 100 ml @ 100 mls/hr PRN PRN IVPB PENDING LAB VALUE; Start 08/13/18 at 15:30 Nitroglycerin/ Dextrose 250 ml @ 1.5 mls/hr PER PROTOCOL IV Last administered on 08/13/18at 16:02; Admin Dose 7.5 MLS/HR; Start 08/13/18 at 16:00 Dopamine HCl/ Dextrose 250 ml @ 8.61 mls/hr PER PROTOCOL IV Last administered on 08/13/18at 16:05; Admin Dose 12.915 MLS/HR; Start 08/13/18 at 16:00 Albumin Human 250 ml @ 500 mls/hr PRN PRN IV CVP< 8, OR SBP<90 Last administered on 08/13/18at 23:45; Admin Dose 500 MLS/HR; Start 08/13/18 at 17:00 Levalbuterol (Xopenex Hfa) 4 puff Q6H RESP THERAPY INH Last administered on 08/14/18at 08:17; Admin Dose 4 PUFF; Start 08/13/18 at 22:00 Ipratropium Clayton (Atrovent Hfa) 4 puff Q6H RESP THERAPY INH Last administered on 08/14/18at 08:17; Admin Dose 4 PUFF; Start 08/13/18 at 21:00 Milrinone Lactate 100 ml @ 12.915 mls/ hr TITRATE IV Last administered on 08/14/18at 06:33; Admin Dose 12.054 MLS/HR; Start 08/13/18 at 21:30 Phenylephrine HCl 40 mg/Dextrose 250 ml @ 37.5 mls/hr TITRATE IV Last administered on 08/14/18at 00:57; Admin Dose 7.5 MLS/HR; Start 08/14/18 at 01:00 Epinephrine 4 mg/ Sodium Chloride 250 ml @ 1.88 mls/hr TITRATE IV Last administered on 08/14/18at 04:24; Admin Dose 3.75 MLS/HR; Start 08/14/18 at 03:30 Midazolam HCl 50 ml @ 1 mls/hr TITRATE IV Last administered on 08/14/18at 04:15; Admin Dose 2 MLS/HR; Start 08/14/18 at 03:30 Fentanyl 100 ml @ 2.5 mls/hr TITRATE IV Last administered on 08/14/18at 04:22; Admin Dose 2.5 MLS/HR; Start 08/14/18 at 03:30 Clopidogrel Bisulfate (plaVIX) 75 mg DAILY NGT ; Start 08/14/18 at 09:00 Aspirin (Halfprin) 81 mg DAILY PO ; Start 08/14/18 at 09:00 CORETTA ADAMSON Aug 14, 2018 09:29
--- NOTE | 2018-08-14 09:44 | PN ---
Date/Time of Note Date/Time of Note DATE: 08/14/18 TIME: 09:29 Assessment/Plan VTE Prophylaxis Risk score (from Nsg)>0 risk: 21 SCD applied (from Nsg): Yes Pharmacological prophylaxis: LMWH Lines/Catheters IV Catheter Type (from Nrsg): Cordis Central line still needed: Yes Urinary Cath still in place: Yes Reason Cath still needed: urinary retention Assessment/Plan Assessment/Plan From the note of Dr. Glez: cardiogenic shock: low cardiac index post-op possibly from transient myocardial stunning which should improve. Per Dr. Howell EF remained preserved post-op On milrinone and epi. Pressures ok otherwise and good UOP Acute respiratory failure: Remains on vent post-op at FiO2 80%. Will be weaned ; now FiO2 is 70%. Acute on chronic renal failure: Cr baseline 1.6. Up to 2.5 now. Likely hemodynamics and cardiorenal s/p CABG x5 08/13/18: WINN to LAD, SVG to ramus sequence to obtuse marginal artery, SVG to PDA, SVG to left ventricular extension branch. Difficult case per Dr. Howell with poor targets.Vein harvesting and epiaortic scanning of the ascending aorta. CAD: s/p multiple prior PCIs. Cath 08/11/18 with multivessel disease. s/p CABG above Acute on chronic diastolic CHF: Diuresed on admission and now euvolemic Recent left femoral DVT: on Eliquis as outpt. 1. Ischemic heart disease angina three-vessel coronary artery disease s/p CABG as above. 2. Hypertension with congestive heart failure diastolic- improved. Now euvolemic. 3. Diabetes mellitus type 2 blood sugar better controlled. On Iv insulin. 4. History of cholecystitis and pancreatitis 5. Chronic kidney disease with baseline creatinine being 1.6 there was a number of being also 1.8 after having the diarrhea.Now 2.5. Acute on chronic Ki Idney disease. 6. Dyslipidemia better controlled 7. History of nasal bleeding recurrent- stable. 8. Morbid obesity with snoring and apnea and daytime sleepiness 9. BPH with nocturia 10. Low back pain with radiculopathy 11. 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 Status post cataract ectomy 13. Diabetic nephropathy retinopathy and angiopathy and neuropathy. 14. Constipation- improved. 15. Grief reaction after the of her 16. Gastroesophageal reflux disease 17. Deep venous thrombosis of the left saphenous vein, 2-3 months ago;was on Eliquis 5 mg twice daily, currently stopped: since 08/11/2018. 18. Gastritis 19. COPD. Quit smoking 10years ago. 20. History of nephrolithiasis. 21.Drop of hematocrit 22.Slow weaning Result Diagram: 08/14/18 0430 08/14/18 0430 Results 24hrs Laboratory Tests Test 08/13/18 15:15 08/13/18 15:45 08/13/18 16:01 08/13/18 16:35 Blood Gas Blood arterial Specimen Source Arterial Blood 08/13/2018 4:15: Date Drawn 49 PM Arterial Blood 7.407 pH (Temp corrected ) Arterial Blood 37.1 pCO2 (Temp correct) Arterial Blood 75.9 L pO2 (Temp corrected ) Arterial Blood 22.8 HCO3 Arterial Blood -1.5 Base Excess Arterial Blood 94.6 L Oxygen Saturati on Rogelio Test N/A Arterial Blood A-Line Gas Puncture Site Arterial 0.3 Blood Carboxyhe moglobin Arterial Blood 0.4 Methemoglobin Blood Gas A-a 600.0 H O2 Differential Oxyhemoglobin 93.9 Percent Blood Gas 37.0 Temperature Blood Gas 14.0 Respiration Rate Blood Gas 15 Actual Respiration Rat e Blood Gas VENT - AC Modality FiO2 100.0 Blood Gas Tidal 650.0 Volume Blood Gas Low 5.0 PEEP Setting Blood Gas DOMINIC Watt Notified Whom Blood Gas 08/13/2018 4:34: Notified Time 04 PM Bedside Glucose 123 132 White Blood 10.0 # Count Red Blood Count 3.87 #L Hemoglobin 11.4 L Hematocrit 34.3 #L Mean 88.6 Corpuscular Volume Mean 29.5 Corpuscular Hemoglobin Mean 33.2 Corpuscular Hemoglobin Conc ent Red Cell 14.5 Distribution Width Platelet Count 101 #L Mean Platelet 11.3 H Volume Immature 0.900 H Granulocytes % Neutrophils % 78.7 H Lymphocytes % 9.2 L Monocytes % 10.3 Eosinophils % 0.7 Basophils % 0.2 Nucleated Red 0.0 Blood Cells % Immature 0.090 H Granulocytes # Neutrophils # 7.9 H Lymphocytes # 0.9 Monocytes # 1.0 H Eosinophils # 0.1 Basophils # 0.0 Nucleated Red 0.0 Blood Cells # Prothrombin 16.3 #H Time Prothrombin 1.3 Time Ratio INR 1.30 International Normalized Rati o Activated 25.8 Partial Thrombo plast Time Sodium Level 140 Potassium Level 4.5 Chloride Level 108 Carbon Dioxide 24 Level Anion Gap 8 Blood Urea 29 H Nitrogen Creatinine 1.91 H Est Glomerular Filtrat Rate mL/min Glucose Level 131 Calcium Level 8.5 Magnesium Level 2.5 Test 08/13/18 16:37 08/13/18 17:07 08/13/18 18:56 08/13/18 20:09 Blood Gas [facility] Specimen Source Arterial Blood 08/13/2018 4:45: Date Drawn 22 PM Arterial Blood VENOUS LINE Gas Puncture Site Rogelio Test N/A Mixed Venous 33.8 Blood PO2 Mixed Venous 62.8 L Blood O2 Saturation Mixed Venous 11.8 Blood Total Hemoglobi n Mixed Venous 62.5 Blood Oxyhemogl obin Mixed Venous 0.1 Bld Carboxyhemo globin Mixed Venous 0.4 Blood Methemogl obin Blood Gas 37.0 Temperature Blood Gas 14.0 Respiration Rate Blood Gas 15 Actual Respiration Rat e Blood Gas VENT - AC Modality FiO2 100.0 Blood Gas Tidal 650.0 Volume Blood Gas Low 5.0 PEEP Setting Blood Gas DOMINIC Watt Notified Whom Blood Gas 08/13/2018 4:53: Notified Time 56 PM Bedside Glucose 136 186 211 Test 08/13/18 20:56 08/13/18 21:02 08/13/18 21:29 08/13/18 22:02 Blood Gas [facility] Specimen Source Arterial Blood 08/13/2018 9:26: Date Drawn 22 PM Arterial Blood 7.374 pH (Temp corrected ) Arterial Blood 37.7 pCO2 (Temp correct) Arterial Blood 167.3 H pO2 (Temp corrected ) Arterial Blood 21.5 L HCO3 Arterial Blood -3.3 L Base Excess Arterial Blood 98.7 Oxygen Saturati on Rogelio Test N/A Arterial Blood A-Line Gas Puncture Site Arterial 0.3 Blood Carboxyhe moglobin Arterial Blood 0.3 Methemoglobin Mixed Venous 7.345 Blood pH Mixed Venous 38.1 L Blood PCO2 Mixed Venous 33.1 Blood PO2 Mixed Venous 20.3 L Blood HCO3 Mixed Venous -4.9 Blood Base Excess Mixed Venous 59.0 L Blood O2 Saturation Mixed Venous 10.4 Blood Total Hemoglobi n Mixed Venous 58.6 Blood Oxyhemogl obin Mixed Venous 0.3 Bld Carboxyhemo globin Mixed Venous 0.3 Blood Methemogl obin Blood Gas A-a 641.8 O2 Differential Oxyhemoglobin 98.1 Percent Blood Gas 37.0 Temperature Blood Gas 14.0 Respiration Rate Blood Gas 14 Actual Respiration Rat e Blood Gas VENT - AC Modality FiO2 100.0 Blood Gas Tidal 650.0 Volume Blood Gas Low 5.0 PEEP Setting Blood Gas 27.0 Inspiratory Pressure Blood Gas TERELL ASENCIO Notified Whom Blood Gas 08/13/2018 9:38: Notified Time 47 PM Bedside Glucose 144 178 Sodium Level 140 Potassium Level 4.6 Chloride Level 110 Carbon Dioxide 23 Level Anion Gap 7 Blood Urea 32 H Nitrogen Creatinine 2.11 H Est Glomerular Filtrat Rate mL/min Glucose Level 196 Calcium Level 8.5 Magnesium Level 2.3 Test 08/13/18 23:05 08/14/18 01:03 08/14/18 02:01 08/14/18 03:06 Bedside Glucose 208 223 H 218 201 Test 08/14/18 04:07 08/14/18 04:30 08/14/18 04:42 08/14/18 05:00 Bedside Glucose 195 White Blood 10.6 Count Red Blood Count 3.55 L Hemoglobin 10.5 L Hematocrit 31.7 L Mean 89.3 Corpuscular Volume Mean 29.6 Corpuscular Hemoglobin Mean 33.1 Corpuscular Hemoglobin Conc ent Red Cell 14.8 H Distribution Width Platelet Count 109 L Mean Platelet 12.2 H Volume Immature 0.500 H Granulocytes % Neutrophils % 77.7 H Lymphocytes % 11.8 L Monocytes % 9.7 Eosinophils % 0.1 Basophils % 0.2 Nucleated Red 0.0 Blood Cells % Immature 0.050 H Granulocytes # Neutrophils # 8.2 H Lymphocytes # 1.2 Monocytes # 1.0 H Eosinophils # 0.0 Basophils # 0.0 Nucleated Red 0.0 Blood Cells # Prothrombin 15.1 H Time Prothrombin 1.2 Time Ratio INR 1.18 International Normalized Rati o Activated 28.6 Partial Thrombo plast Time Sodium Level 140 Potassium Level 4.8 Chloride Level 110 Carbon Dioxide 24 Level Anion Gap 6 Blood Urea 36 H Nitrogen Creatinine 2.56 H Est Glomerular Filtrat Rate mL/min Glucose Level 180 Calcium Level 8.9 Magnesium Level 2.4 Blood Gas [facility] Blood Specimen arterial Source Arterial Blood 08/14/2018 4:40: 08/14/2018 4:35 Date Drawn 51 AM :12 AM Arterial Blood PUL ART LINE A-Line Gas Puncture Site Rogelio Test N/A N/A Mixed Venous 7.359 Blood pH Mixed Venous 43.8 Blood PCO2 Mixed Venous 35.2 Blood PO2 Mixed Venous 24.1 Blood HCO3 Mixed Venous -1.4 Blood Base Excess Mixed Venous 65.5 Blood O2 Saturation Mixed Venous 11.5 Blood Total Hemoglobi n Mixed Venous 65.0 Blood Oxyhemogl obin Mixed Venous 0.3 Bld Carboxyhemo globin Mixed Venous 0.4 Blood Methemogl obin Blood Gas A-a 634.0 532.0 H O2 Differential Blood Gas 37.0 37.0 Temperature Blood Gas 14.0 14.0 Respiration Rate Blood Gas 15 15 Actual Respiration Rat e Blood Gas VENT - AC VENT - AC Modality FiO2 100.0 100.0 Blood Gas Tidal 650.0 650.0 Volume Blood Gas Low 7.0 7.0 PEEP Setting Blood Gas 30.0 30.0 Inspiratory Pressure Blood Gas TERELL ASENCIO RCP Notified Whom Blood Gas 08/14/2018 4:53: 08/14/2018 4:47 Notified Time 40 AM :15 AM Arterial Blood 7.397 pH (Temp corrected ) Arterial Blood 36.9 pCO2 (Temp correct) Arterial Blood 144.1 H pO2 (Temp corrected ) Arterial Blood 22.2 HCO3 Arterial Blood -2.2 Base Excess Arterial Blood 98.3 Oxygen Saturati on Arterial 0.3 Blood Carboxyhe moglobin Arterial Blood 0.3 Methemoglobin Oxyhemoglobin 97.7 Percent Test 08/14/18 05:03 08/14/18 06:00 08/14/18 07:02 08/14/18 08:06 Bedside Glucose 195 195 180 180 Test 08/14/18 09:13 Bedside Glucose 160 Subjective 24 Hr Interval Summary Free Text/Dictation Intubated on mechanical ventilation. Slow weaning. Still on FiO2 of 70. Subjective hx not possible: other (Unobtainable.) Exam/Review of Systems Exam Vitals Vital Signs Date Temp Pulse Resp B/P (MAP) Pulse Ox O2 O2 Flow FiO2 Time Delivery Rate 08/14/18 87 08:00 08/14/18 80 08:00 08/14/18 17 123/54 99 06:45 (77) 08/14/18 Mechanical 06:30 Ventilator 08/14/18 99.6 06:00 08/13/18 2.0 09:00 Intake and Output 08/13/18 08/13/18 08/14/18 1515:00 23:00 07:00 IntakeIntake Total 3096.177 ml 1015.480 ml OutputOutput Total 30 ml 2538 ml 404 ml BalanceBalance -30 ml 558.177 ml 611.480 ml Constitutional: well developed, obese, other (Under narcosis. Laying on the left-sided decubitus position with no signs of distress.); No alert, No oriented, No non-verbal, No distress, No frail Psych: No no complaints, No nl mood/affect, No anxiety, No confusion, No depression, No suicidal, No other Head: normocephalic, atraumatic; No lacerations, No hematomas, No other Eyes: EOMI, PERRL; No nl conjunctiva, No nl lids, No nl sclera, No icteric, No fundi, disc, No other ENMT: nl external ears & nose, nl lips & teeth, nl nasal mucosa & septum, mucosa pink and moist; No intubated, No tympanic membranes, No other Neck: supple, jvd, bruits, thyromegaly, other (Right-sided central line in place with mild swelling.); No non-tender, No masses, No nuchal rigidity Respiratory: clear to auscultation, diminished breath sounds (Bilaterally visible breath sounds.); No normal air movement, No congested cough, No crackles/rales, No intercostal retraction, No labored breathing, No respirations, No tactile fremitus, No wheez ing, No other Cardiovascular: regular rate and rhythm, bruits, edema (Trace.), jugular venous distention (JVD), other (From chest tube drainage about 150 cc. Postoperative changes of the chest wall.); No nl pulses, No diastolic murmur, No gallop, No irregular rhythm, No murm urs/extra sounds, No rub, No systolic murmur, No S3, No S4 Gastrointestinal: soft, nl liver, spleen, bowel sounds, distended; No non-tender, No ascites, No firm, No hepatomegaly, No mass, No rebound or guarding, No splenomegaly, No surgical scars, No tender, No other Genitourinary - Male: nl penis, nl scrotum; No CVA tenderness, No discharge, No other Musculoskeletal: joint tenderness, muscle tone, muscle weakness; No nl extremities to inspection, No nl gait and stance, No range of motion, No spine non-tender, No swelling, No other Extremities: No normal pulses, No calf tenderness, No cyanosis, No clubbing, No edema, No pitting pedal edema, No palpable cord, No tenderness, No other 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: No CROCHET BEADER II-XII intact, No nl mental status, No nl speech, No nl strength, No confused, No DTR's symmetric, No focal weakness, No lethargic, No numbness, No reflexes, No unresponsive, No other Skin: nl turgor; No rash or lesions, No diaphoresis, No ecchymosis, No laceration, No puncture, No other Lymph: nl lymph nodes; No enlarged, No nontender, No other Results Results 24hrs Laboratory Tests Test 08/13/18 15:15 08/13/18 15:45 08/13/18 16:01 08/13/18 16:35 Blood Gas Blood arterial Specimen Source Arterial Blood 08/13/2018 4:15: Date Drawn 49 PM Arterial Blood 7.407 pH (Temp corrected ) Arterial Blood 37.1 pCO2 (Temp correct) Arterial Blood 75.9 L pO2 (Temp corrected ) Arterial Blood 22.8 HCO3 Arterial Blood -1.5 Base Excess Arterial Blood 94.6 L Oxygen Saturati on Rogelio Test N/A Arterial Blood A-Line Gas Puncture Site Arterial 0.3 Blood Carboxyhe moglobin Arterial Blood 0.4 Methemoglobin Blood Gas A-a 600.0 H O2 Differential Oxyhemoglobin 93.9 Percent Blood Gas 37.0 Temperature Blood Gas 14.0 Respiration Rate Blood Gas 15 Actual Respiration Rat e Blood Gas VENT - AC Modality FiO2 100.0 Blood Gas Tidal 650.0 Volume Blood Gas Low 5.0 PEEP Setting Blood Gas Shukri [employer] Notified Whom Blood Gas 08/13/2018 4:34: Notified Time 04 PM Bedside Glucose 123 132 White Blood 10.0 # Count Red Blood Count 3.87 #L Hemoglobin 11.4 L Hematocrit 34.3 #L Mean 88.6 Corpuscular Volume Mean 29.5 Corpuscular Hemoglobin Mean 33.2 Corpuscular Hemoglobin Conc ent Red Cell 14.5 Distribution Width Platelet Count 101 #L Mean Platelet 11.3 H Volume Immature 0.900 H Granulocytes % Neutrophils % 78.7 H Lymphocytes % 9.2 L Monocytes % 10.3 Eosinophils % 0.7 Basophils % 0.2 Nucleated Red 0.0 Blood Cells % Immature 0.090 H Granulocytes # Neutrophils # 7.9 H Lymphocytes # 0.9 Monocytes # 1.0 H Eosinophils # 0.1 Basophils # 0.0 Nucleated Red 0.0 Blood Cells # Prothrombin 16.3 #H Time Prothrombin 1.3 Time Ratio INR 1.30 International Normalized Rati o Activated 25.8 Partial Thrombo plast Time Sodium Level 140 Potassium Level 4.5 Chloride Level 108 Carbon Dioxide 24 Level Anion Gap 8 Blood Urea 29 H Nitrogen Creatinine 1.91 H Est Glomerular Filtrat Rate mL/min Glucose Level 131 Calcium Level 8.5 Magnesium Level 2.5 Test 08/13/18 16:37 08/13/18 17:07 08/13/18 18:56 08/13/18 20:09 Blood Gas [facility] Specimen Source Arterial Blood 08/13/2018 4:45: Date Drawn 22 PM Arterial Blood VENOUS LINE Gas Puncture Site Rogelio Test N/A Mixed Venous 33.8 Blood PO2 Mixed Venous 62.8 L Blood O2 Saturation Mixed Venous 11.8 Blood Total Hemoglobi n Mixed Venous 62.5 Blood Oxyhemogl obin Mixed Venous 0.1 Bld Carboxyhemo globin Mixed Venous 0.4 Blood Methemogl obin Blood Gas 37.0 Temperature Blood Gas 14.0 Respiration Rate Blood Gas 15 Actual Respiration Rat e Blood Gas VENT - AC Modality FiO2 100.0 Blood Gas Tidal 650.0 Volume Blood Gas Low 5.0 PEEP Setting Blood Gas Shukri [employer] Notified Whom Blood Gas 08/13/2018 4:53: Notified Time 56 PM Bedside Glucose 136 186 211 Test 08/13/18 20:56 08/13/18 21:02 08/13/18 21:29 08/13/18 22:02 Blood Gas [facility] Specimen Source Arterial Blood 08/13/2018 9:26: Date Drawn 22 PM Arterial Blood 7.374 pH (Temp corrected ) Arterial Blood 37.7 pCO2 (Temp correct) Arterial Blood 167.3 H pO2 (Temp corrected ) Arterial Blood 21.5 L HCO3 Arterial Blood -3.3 L Base Excess Arterial Blood 98.7 Oxygen Saturati on Rogelio Test N/A Arterial Blood A-Line Gas Puncture Site Arterial 0.3 Blood Carboxyhe moglobin Arterial Blood 0.3 Methemoglobin Mixed Venous 7.345 Blood pH Mixed Venous 38.1 L Blood PCO2 Mixed Venous 33.1 Blood PO2 Mixed Venous 20.3 L Blood HCO3 Mixed Venous -4.9 Blood Base Excess Mixed Venous 59.0 L Blood O2 Saturation Mixed Venous 10.4 Blood Total Hemoglobi n Mixed Venous 58.6 Blood Oxyhemogl obin Mixed Venous 0.3 Bld Carboxyhemo globin Mixed Venous 0.3 Blood Methemogl obin Blood Gas A-a 641.8 O2 Differential Oxyhemoglobin 98.1 Percent Blood Gas 37.0 Temperature Blood Gas 14.0 Respiration Rate Blood Gas 14 Actual Respiration Rat e Blood Gas VENT - AC Modality FiO2 100.0 Blood Gas Tidal 650.0 Volume Blood Gas Low 5.0 PEEP Setting Blood Gas 27.0 Inspiratory Pressure Blood Gas TERELL ASENCIO Notified Whom Blood Gas 08/13/2018 9:38: Notified Time 47 PM Bedside Glucose 144 178 Sodium Level 140 Potassium Level 4.6 Chloride Level 110 Carbon Dioxide 23 Level Anion Gap 7 Blood Urea 32 H Nitrogen Creatinine 2.11 H Est Glomerular Filtrat Rate mL/min Glucose Level 196 Calcium Level 8.5 Magnesium Level 2.3 Test 08/13/18 23:05 08/14/18 01:03 08/14/18 02:01 08/14/18 03:06 Bedside Glucose 208 223 H 218 201 Test 08/14/18 04:07 08/14/18 04:30 08/14/18 04:42 08/14/18 05:00 Bedside Glucose 195 White Blood 10.6 Count Red Blood Count 3.55 L Hemoglobin 10.5 L Hematocrit 31.7 L Mean 89.3 Corpuscular Volume Mean 29.6 Corpuscular Hemoglobin Mean 33.1 Corpuscular Hemoglobin Conc ent Red Cell 14.8 H Distribution Width Platelet Count 109 L Mean Platelet 12.2 H Volume Immature 0.500 H Granulocytes % Neutrophils % 77.7 H Lymphocytes % 11.8 L Monocytes % 9.7 Eosinophils % 0.1 Basophils % 0.2 Nucleated Red 0.0 Blood Cells % Immature 0.050 H Granulocytes # Neutrophils # 8.2 H Lymphocytes # 1.2 Monocytes # 1.0 H Eosinophils # 0.0 Basophils # 0.0 Nucleated Red 0.0 Blood Cells # Prothrombin 15.1 H Time Prothrombin 1.2 Time Ratio INR 1.18 International Normalized Rati o Activated 28.6 Partial Thrombo plast Time Sodium Level 140 Potassium Level 4.8 Chloride Level 110 Carbon Dioxide 24 Level Anion Gap 6 Blood Urea 36 H Nitrogen Creatinine 2.56 H Est Glomerular Filtrat Rate mL/min Glucose Level 180 Calcium Level 8.9 Magnesium Level 2.4 Blood Gas [facility] Blood Specimen arterial Source Arterial Blood 08/14/2018 4:40: 08/14/2018 4:35 Date Drawn 51 AM :12 AM Arterial Blood PUL ART LINE A-Line Gas Puncture Site Rogelio Test N/A N/A Mixed Venous 7.359 Blood pH Mixed Venous 43.8 Blood PCO2 Mixed Venous 35.2 Blood PO2 Mixed Venous 24.1 Blood HCO3 Mixed Venous -1.4 Blood Base Excess Mixed Venous 65.5 Blood O2 Saturation Mixed Venous 11.5 Blood Total Hemoglobi n Mixed Venous 65.0 Blood Oxyhemogl obin Mixed Venous 0.3 Bld Carboxyhemo globin Mixed Venous 0.4 Blood Methemogl obin Blood Gas A-a 634.0 532.0 H O2 Differential Blood Gas 37.0 37.0 Temperature Blood Gas 14.0 14.0 Respiration Rate Blood Gas 15 15 Actual Respiration Rat e Blood Gas VENT - AC VENT - AC Modality FiO2 100.0 100.0 Blood Gas Tidal 650.0 650.0 Volume Blood Gas Low 7.0 7.0 PEEP Setting Blood Gas 30.0 30.0 Inspiratory Pressure Blood Gas TERELL ASENCIO RCP Notified Whom Blood Gas 08/14/2018 4:53: 08/14/2018 4:47 Notified Time 40 AM :15 AM Arterial Blood 7.397 pH (Temp corrected ) Arterial Blood 36.9 pCO2 (Temp correct) Arterial Blood 144.1 H pO2 (Temp corrected ) Arterial Blood 22.2 HCO3 Arterial Blood -2.2 Base Excess Arterial Blood 98.3 Oxygen Saturati on Arterial 0.3 Blood Carboxyhe moglobin Arterial Blood 0.3 Methemoglobin Oxyhemoglobin 97.7 Percent Test 08/14/18 05:03 08/14/18 06:00 08/14/18 07:02 08/14/18 08:06 Bedside Glucose 195 195 180 180 Test 08/14/18 09:13 Bedside Glucose 160 Medications Medication Current Medications Enoxaparin Sodium (Lovenox) 115 mg Q24H SC Last administered on 08/11/18 15:00; Admin Dose 115 MG; Start 08/11/18 at 12:00 Atorvastatin Calcium (Lipitor) 40 mg HS PO Last administered on 08/12/18 20:24; Admin Dose 40 MG; Start 08/11/18 at 21:00 Hydralazine HCl (Apresoline) 10 mg Q4H PRN IV SBP >170; Start 08/11/18 at 12:00 Diagnostic Test (Pha) (Accu-Chek) 1 ea Q1H XX Last administered on 08/14/18 07:03; Admin Dose 1 EA; Start 08/13/18 at 17:00 Insulin Human Regular 100 unit/ Sodium Chloride 100 ml @ 0 mls/hr PER PROTOCOL IV Last administered on 08/14/18 07:22; Admin Dose 9 MLS/HR; Start 08/13/18 at 17:00 Miscellaneous Information (* Miscellaneous Pharmacy Order) Treatment of Hypoglycemia: 1.BG 51... Per protocol XX ; Start 08/13/18 at 15:30 Dextrose (D50w Syringe) 25 ml Q15M PRN IV .DECREASED GLUCOSE; Start 08/13/18 at 15:30 Dextrose (D50w Syringe) 50 ml Q15M PRN IV .DECREASED GLUCOSE; Start 08/13/18 at 15:30 Hydromorphone HCl (Dilaudid) 0.2 mg Q15M PRN IV PAIN LEVEL 1-5 Last ad ministered on 08/13/18 21:36; Admin Dose 0.2 MG; Start 08/13/18 at 15:30 Hydromorphone HCl (Dilaudid) 0.4 mg Q15M PRN IV PAIN LEVEL 6-10; Start 08/13/18 at 15:30 Oxycodone/ Acetaminophen (Percocet (5/ 325)) 1 tab Q3H PRN PO PAIN LEVEL 1-5; Start 08/13/18 at 15:30 Ondansetron HCl (Zofran Inj) 4 mg Q6H PRN IV NAUSEA AND/OR VOMITING; Start 08/13/18 at 15:30 Famotidine (Pepcid Iv) 20 mg DAILY IV Last administered on 08/13/18at 20:36; Admin Dose 20 MG; Start 08/13/18 at 20:00 Acetaminophen (Tylenol Tab) 650 mg Q3H PRN PO ELEVATED TEMPERATURE; Start 08/13/18 at 15:30 Potassium Chloride 50 ml @ 50 mls/hr SEE DIRECTION PRN IVPB K+ LEVEL; Start 08/13/18 at 15:30 Magnesium Sulfate/ Dextrose 100 ml @ 100 mls/hr PRN PRN IVPB PENDING LAB VALUE; Start 08/13/18 at 15:30 Nitroglycerin/ Dextrose 250 ml @ 1.5 mls/hr PER PROTOCOL IV Last administered on 08/13/18at 16:02; Admin Dose 7.5 MLS/HR; Start 08/13/18 at 16:00 Dopamine HCl/ Dextrose 250 ml @ 8.61 mls/hr PER PROTOCOL IV Last administered on 08/13/18at 16:05; Admin Dose 12.915 MLS/HR; Start 08/13/18 at 16:00 Albumin Human 250 ml @ 500 mls/hr PRN PRN IV CVP< 8, OR SBP<90 Last administered on 08/13/18at 23:45; Admin Dose 500 MLS/HR; Start 08/13/18 at 17:00 Levalbuterol (Xopenex Hfa) 4 puff Q6H RESP THERAPY INH Last administered on 08:17; Admin Dose 4 PUFF; Start 08/13/18 at 22:00 Ipratropium [place] (Atrovent Hfa) 4 puff Q6H RESP THERAPY INH Last administered on 08/14/18 08:17; Admin Dose 4 PUFF; Start 08/13/18 at 21:00 Milrinone Lactate 100 ml @ 12.915 mls/ hr TITRATE IV Last administered on 08/14/18 06:33; Admin Dose 12.054 MLS/HR; Start 08/13/18 at 21:30 Phenylephrine HCl 40 mg/Dextrose 250 ml @ 37.5 mls/hr TITRATE IV Last administered on 08/14/18at 00:57; Admin Dose 7.5 MLS/HR; Start 08/14/18 at 01:00 Epinephrine 4 mg/ Sodium Chloride 250 ml @ 1.88 mls/hr TITRATE IV Last administered on 08/14/18 04:24; Admin Dose 3.75 MLS/HR; Start 08/14/18 at 03:30 Midazolam HCl 50 ml @ 1 mls/hr TITRATE IV Last administered on 08/14/18at 04:15; Admin Dose 2 MLS/HR; Start 08/14/18 at 03:30 Fentanyl 100 ml @ 2.5 mls/hr TITRATE IV Last administered on 08/14/18at 04:22; Admin Dose 2.5 MLS/HR; Start 08/14/18 at 03:30 Clopidogrel Bisulfate (plaVIX) 75 mg DAILY NGT ; Start 08/14/18 at 09:00 Aspirin (Halfprin) 81 mg DAILY PO ; Start 08/14/18 at 09:00 NERIS BROTHERS MD Aug 14, 2018 09:39
[2018-08-14] MEDS: ASPIRIN (EC) 81 MG TAB PO SCH (09:45)
[2018-08-14] MEDS: FAMOTIDINE 20 MG INJ IV SCH (09:45)
[2018-08-14] MEDS: CLOPIDOGREL 75 MG TAB NGT SCH (09:45)
--- NOTE | 2018-08-14 10:00 | CONS ---
Assessment/Plan Assessment/Plan Assessment/Plan (Daily) 1. acute kidney injury vs possible baseline CKD II with Cr 1.65 2. 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 H/o HTN 4. H/o HL 5. H/o DM II 6. H/o CAD with previous stent placement Plan: s/p CABG, post op Cr bumped to 2.5- pt is makign adequate urine, lasix 40mg IV x 1 given will give IV albumin 25% 100ml Q 8 hr x 3 dose continue other post op care will follow up Consultation Date/Type/Reason Admit Date/Time Aug 11, 2018 at 09:20 Initial Consult Date 08/11/18 Type of Consult NEPHROLOGY Requesting Provider: NERIS BROTHERS MD Date/Time of Note DATE: 08/14/18 TIME: 10:00 Exam/Review of Systems Exam Vitals Vital Signs Date Temp Pulse Resp B/P (MAP) Pulse Ox O2 O2 Flow FiO2 Time Delivery Rate 08/14/18 89 16 114/51 96 09:30 (72) 08/14/18 100.0 09:00 08/14/18 80 08:00 08/14/18 [place] 06:30 l Ventilato r 08/13/18 2.0 09:00 Intake and Output 08/13/18 08/13/18 08/14/18 1515:00 23:00 07:00 IntakeIntake Total 3096.177 ml 1015.480 ml OutputOutput Total 30 ml 2538 ml 404 ml BalanceBalance -30 ml 558.177 ml 611.480 ml Results Result Diagram: 08/14/18 0430 08/14/18 0430 Results 24hrs Laboratory Tests Test 08/13/18 15:15 08/13/18 15:45 08/13/18 16:01 08/13/18 16:35 Blood Gas Blood arterial Specimen Source Arterial Blood 08/13/2018 4:15: Date Drawn 49 PM Arterial Blood 7.407 pH (Temp corrected ) Arterial Blood 37.1 pCO2 (Temp correct) Arterial Blood 75.9 L pO2 (Temp corrected ) Arterial Blood 22.8 HCO3 Arterial Blood -1.5 Base Excess Arterial Blood 94.6 L Oxygen Saturati on Rogelio Test N/A Arterial Blood A-Line Gas Puncture Site Arterial 0.3 Blood Carboxyhe moglobin Arterial Blood 0.4 Methemoglobin Blood Gas A-a 600.0 H O2 Differential Oxyhemoglobin 93.9 Percent Blood Gas 37.0 Temperature Blood Gas 14.0 Respiration Rate Blood Gas 15 Actual Respiration Rat e Blood Gas VENT - AC Modality FiO2 100.0 Blood Gas Tidal 650.0 Volume Blood Gas Low 5.0 PEEP Setting Blood Gas Shukri REBAR BENDER Notified Whom Blood Gas 08/13/2018 4:34: Notified Time 04 PM Bedside Glucose 123 132 White Blood 10.0 # Count Red Blood Count 3.87 #L Hemoglobin 11.4 L Hematocrit 34.3 #L Mean 88.6 Corpuscular Volume Mean 29.5 Corpuscular Hemoglobin Mean 33.2 Corpuscular Hemoglobin Conc ent Red Cell 14.5 Distribution Width Platelet Count 101 #L Mean Platelet 11.3 H Volume Immature 0.900 H Granulocytes % Neutrophils % 78.7 H Lymphocytes % 9.2 L Monocytes % 10.3 Eosinophils % 0.7 Basophils % 0.2 Nucleated Red 0.0 Blood Cells % Immature 0.090 H Granulocytes # Neutrophils # 7.9 H Lymphocytes # 0.9 Monocytes # 1.0 H Eosinophils # 0.1 Basophils # 0.0 Nucleated Red 0.0 Blood Cells # Prothrombin 16.3 #H Time Prothrombin 1.3 Time Ratio INR 1.30 International Normalized Rati o Activated 25.8 Partial Thrombo plast Time Sodium Level 140 Potassium Level 4.5 Chloride Level 108 Carbon Dioxide 24 Level Anion Gap 8 Blood Urea 29 H Nitrogen Creatinine 1.91 H Est Glomerular Filtrat Rate mL/min Glucose Level 131 Calcium Level 8.5 Magnesium Level 2.5 Test 08/13/18 16:37 08/13/18 17:07 08/13/18 18:56 08/13/18 20:09 Blood Gas BLMV Specimen Source Arterial Blood 08/13/2018 4:45: Date Drawn 22 PM Arterial Blood VENOUS LINE Gas Puncture Site Rogelio Test N/A Mixed Venous 33.8 Blood PO2 Mixed Venous 62.8 L Blood O2 Saturation Mixed Venous 11.8 Blood Total Hemoglobi n Mixed Venous 62.5 Blood Oxyhemogl obin Mixed Venous 0.1 Bld Carboxyhemo globin Mixed Venous 0.4 Blood Methemogl obin Blood Gas 37.0 Temperature Blood Gas 14.0 Respiration Rate Blood Gas 15 Actual Respiration Rat e Blood Gas VENT - AC Modality FiO2 100.0 Blood Gas Tidal 650.0 Volume Blood Gas Low 5.0 PEEP Setting Blood Gas Shukri, REBAR BENDER Notified Whom Blood Gas 08/13/2018 4:53: Notified Time 56 PM Bedside Glucose 136 186 211 Test 08/13/18 20:56 08/13/18 21:02 08/13/18 21:29 08/13/18 22:02 Blood Gas BLMV Specimen Source Arterial Blood 08/13/2018 9:26: Date Drawn 22 PM Arterial Blood 7.374 pH (Temp corrected ) Arterial Blood 37.7 pCO2 (Temp correct) Arterial Blood 167.3 H pO2 (Temp corrected ) Arterial Blood 21.5 L HCO3 Arterial Blood -3.3 L Base Excess Arterial Blood 98.7 Oxygen Saturati on Rogelio Test N/A Arterial Blood A-Line Gas Puncture Site Arterial 0.3 Blood Carboxyhe moglobin Arterial Blood 0.3 Methemoglobin Mixed Venous 7.345 Blood pH Mixed Venous 38.1 L Blood PCO2 Mixed Venous 33.1 Blood PO2 Mixed Venous 20.3 L Blood HCO3 Mixed Venous -4.9 Blood Base Excess Mixed Venous 59.0 L Blood O2 Saturation Mixed Venous 10.4 Blood Total Hemoglobi n Mixed Venous 58.6 Blood Oxyhemogl obin Mixed Venous 0.3 Bld Carboxyhemo globin Mixed Venous 0.3 Blood Methemogl obin Blood Gas A-a 641.8 O2 Differential Oxyhemoglobin 98.1 Percent Blood Gas 37.0 Temperature Blood Gas 14.0 Respiration Rate Blood Gas 14 Actual Respiration Rat e Blood Gas VENT - AC Modality FiO2 100.0 Blood Gas Tidal 650.0 Volume Blood Gas Low 5.0 PEEP Setting Blood Gas 27.0 Inspiratory Pressure Blood Gas TERELL ASENCIO Notified Whom Blood Gas 08/13/2018 9:38: Notified Time 47 PM Bedside Glucose 144 178 Sodium Level 140 Potassium Level 4.6 Chloride Level 110 Carbon Dioxide 23 Level Anion Gap 7 Blood Urea 32 H Nitrogen Creatinine 2.11 H Est Glomerular Filtrat Rate mL/min Glucose Level 196 Calcium Level 8.5 Magnesium Level 2.3 Test 08/13/18 23:05 08/14/18 01:03 08/14/18 02:01 08/14/18 03:06 Bedside Glucose 208 223 H 218 201 Test 08/14/18 04:07 08/14/18 04:30 08/14/18 04:42 08/14/18 05:00 Bedside Glucose 195 White Blood 10.6 Count Red Blood Count 3.55 L Hemoglobin 10.5 L Hematocrit 31.7 L Mean 89.3 Corpuscular Volume Mean 29.6 Corpuscular Hemoglobin Mean 33.1 Corpuscular Hemoglobin Conc ent Red Cell 14.8 H Distribution Width Platelet Count 109 L Mean Platelet 12.2 H Volume Immature 0.500 H Granulocytes % Neutrophils % 77.7 H Lymphocytes % 11.8 L Monocytes % 9.7 Eosinophils % 0.1 Basophils % 0.2 Nucleated Red 0.0 Blood Cells % Immature 0.050 H Granulocytes # Neutrophils # 8.2 H Lymphocytes # 1.2 Monocytes # 1.0 H Eosinophils # 0.0 Basophils # 0.0 Nucleated Red 0.0 Blood Cells # Prothrombin 15.1 H Time Prothrombin 1.2 Time Ratio INR 1.18 International Normalized Rati o Activated 28.6 Partial Thrombo plast Time Sodium Level 140 Potassium Level 4.8 Chloride Level 110 Carbon Dioxide 24 Level Anion Gap 6 Blood Urea 36 H Nitrogen Creatinine 2.56 H Est Glomerular Filtrat Rate mL/min Glucose Level 180 Calcium Level 8.9 Magnesium Level 2.4 Blood Gas BLMV Blood Specimen arterial Source Arterial Blood 08/14/2018 4:40: 08/14/2018 4:35 Date Drawn 51 AM :12 AM Arterial Blood PUL ART LINE A-Line Gas Puncture Site Rogelio Test N/A N/A Mixed Venous 7.359 Blood pH Mixed Venous 43.8 Blood PCO2 Mixed Venous 35.2 Blood PO2 Mixed Venous 24.1 Blood HCO3 Mixed Venous -1.4 Blood Base Excess Mixed Venous 65.5 Blood O2 Saturation Mixed Venous 11.5 Blood Total Hemoglobi n Mixed Venous 65.0 Blood Oxyhemogl obin Mixed Venous 0.3 Bld Carboxyhemo globin Mixed Venous 0.4 Blood Methemogl obin Blood Gas A-a 634.0 532.0 H O2 Differential Blood Gas 37.0 37.0 Temperature Blood Gas 14.0 14.0 Respiration Rate Blood Gas 15 15 Actual Respiration Rat e Blood Gas VENT - AC VENT - AC Modality FiO2 100.0 100.0 Blood Gas Tidal 650.0 650.0 Volume Blood Gas Low 7.0 7.0 PEEP Setting Blood Gas 30.0 30.0 Inspiratory Pressure Blood Gas TERELL ASENCIO RCP Notified Whom Blood Gas 08/14/2018 4:53: 08/14/2018 4:47 Notified Time 40 AM :15 AM Arterial Blood 7.397 pH (Temp corrected ) Arterial Blood 36.9 pCO2 (Temp correct) Arterial Blood 144.1 H pO2 (Temp corrected ) Arterial Blood 22.2 HCO3 Arterial Blood -2.2 Base Excess Arterial Blood 98.3 Oxygen Saturati on Arterial 0.3 Blood Carboxyhe moglobin Arterial Blood 0.3 Methemoglobin Oxyhemoglobin 97.7 Percent Test 08/14/18 05:03 08/14/18 06:00 08/14/18 07:02 08/14/18 08:06 Bedside Glucose 195 195 180 180 Test 08/14/18 09:13 Bedside Glucose 160 Medications Medication Current Medications Enoxaparin Sodium (Lovenox) 115 mg Q24H SC Last administered on 08/11/18at 15:00; Admin Dose 115 MG; Start 08/11/18 at 12:00 Atorvastatin Calcium (Lipitor) 40 mg HS PO Last administered on 08/12/18at 20:24; Admin Dose 40 MG; Start 08/11/18 at 21:00 Hydralazine HCl (Apresoline) 10 mg Q4H PRN IV SBP >170; Start 08/11/18 at 12:00 Diagnostic Test (Pha) (Accu-Chek) 1 ea Q1H XX Last administered on 08/14/18at 07:03; Admin Dose 1 EA; Start 08/13/18 at 17:00 Insulin Human Regular 100 unit/ Sodium Chloride 100 ml @ 0 mls/hr PER PROTOCOL IV Last administered on 08/14/18at 07:22; Admin Dose 9 MLS/HR; Start 08/13/18 at 17:00 Miscellaneous Information (* Miscellaneous Pharmacy Order) Treatment of Hypoglycemia: 1.BG 51... Per protocol XX ; Start 08/13/18 at 15:30 Dextrose (D50w Syringe) 25 ml Q15M PRN IV .DECREASED GLUCOSE; Start 08/13/18 at 15:30 Dextrose (D50w Syringe) 50 ml Q15M PRN IV .DECREASED GLUCOSE; Start 08/13/18 at 15:30 Hydromorphone HCl (Dilaudid) 0.2 mg Q15M PRN IV PAIN LEVEL 1-5 Last administered on 08/13/18at 21:36; Admin Dose 0.2 MG; Start 08/13/18 at 15:30 Hydromorphone HCl (Dilaudid) 0.4 mg Q15M PRN IV PAIN LEVEL 6-10; Start 08/13/18 at 15:30 Oxycodone/ Acetaminophen (Percocet (5/ 325)) 1 tab Q3H PRN PO PAIN LEVEL 1-5; Start 08/13/18 at 15:30 Ondansetron HCl (Zofran Inj) 4 mg Q6H PRN IV NAUSEA AND/OR VOMITING; Start 08/13/18 at 15:30 Famotidine (Pepcid Iv) 20 mg DAILY IV Last administered on 08/14/18 09:45; Admin Dose 20 MG; Start 08/13/18 at 20:00 Acetaminophen (Tylenol Tab) 650 mg Q3H PRN PO ELEVATED TEMPERATURE; Start 08/13/18 at 15:30 Potassium Chloride 50 ml @ 50 mls/hr SEE DIRECTION PRN IVPB K+ LEVEL; Start 08/13/18 at 15:30 Magnesium Sulfate/ Dextrose 100 ml @ 100 mls/hr PRN PRN IVPB PENDING LAB VALUE; Start 08/13/18 at 15:30 Nitroglycerin/ Dextrose 250 ml @ 1.5 mls/hr PER PROTOCOL IV Last administered on 08/13/18 16:02; Admin Dose 7.5 MLS/HR; Start 08/13/18 at 16:00 Dopamine HCl/ Dextrose 250 ml @ 8.61 mls/hr PER PROTOCOL IV Last administered on 08/13/18 16:05; Admin Dose 12.915 MLS/HR; Start 08/13/18 at 16:00 Albumin Human 250 ml @ 500 mls/hr PRN PRN IV CVP< 8, OR SBP<90 Last administered on 08/13/18at 23:45; Admin Dose 500 MLS/HR; Start 08/13/18 at 17:00 Levalbuterol (Xopenex Hfa) 4 puff Q6H RESP THERAPY INH Last administered on 08/14/18 08:17; Admin Dose 4 PUFF; Start 08/13/18 at 22:00 Ipratropium [place] (Atrovent Hfa) 4 puff Q6H RESP THERAPY INH Last administered on 08/14/18 08:17; Admin Dose 4 PUFF; Start 08/13/18 at 21:00 Milrinone Lactate 100 ml @ 12.915 mls/ hr TITRATE IV Last administered on 08/14/18 06:33; Admin Dose 12.054 MLS/HR; Start 08/13/18 at 21:30 Phenylephrine HCl 40 mg/Dextrose 250 ml @ 37.5 mls/hr TITRATE IV Last administered on 08/14/18 00:57; Admin Dose 7.5 MLS/HR; Start 08/14/18 at 01:00 Epinephrine 4 mg/ Sodium Chloride 250 ml @ 1.88 mls/hr TITRATE IV Last adminis tered on 08/14/18 04:24; Admin Dose 3.75 MLS/HR; Start 08/14/18 at 03:30 Midazolam HCl 50 ml @ 1 mls/hr TITRATE IV Last administered on 08/14/18 04:15; Admin Dose 2 MLS/HR; Start 08/14/18 at 03:30 Fentanyl 100 ml @ 2.5 mls/hr TITRATE IV Last administered on 08/14/18 04:22; Admin Dose 2.5 MLS/HR; Start 08/14/18 at 03:30 Clopidogrel Bisulfate (plaVIX) 75 mg DAILY NGT Last administered on 08/14/18 09:45; Admin Dose 75 MG; Start 08/14/18 at 09:00 Aspirin (Halfprin) 81 mg DAILY PO Last administered on 08/14/18 09:45; Admin Dose 81 MG; Start 08/14/18 at 09:00 DARRYL SOOD MD Aug 14, 2018 10:00
[2018-08-14] MEDS ORDERED: FUROSEMIDE 40 MG INJ IV ONE (10:30)
[2018-08-14] MEDS: ACETAMINOPHEN 325 MG TAB PO PRN (10:34)
[2018-08-14] MEDS: ALBUMIN HUMAN 25% 50 ML IV SCH ×2 (11:03→19:16)
[2018-08-14] MEDS ORDERED: ENOXAPARIN 100 MG/ML SYG SC SCH (14:00)
[2018-08-14] MEDS ORDERED: ENOXAPARIN 30 MG/0.3 ML SYG SC SCH (14:30)
[2018-08-14] MEDS ORDERED: ENOXAPARIN 80 MG/0.8 ML SYG SC SCH (14:30)
[2018-08-14] MEDS ORDERED: ALBUMIN HUMAN 5% 250 ML IV ONE (18:00)
[2018-08-14] MEDS ORDERED: BUMETANIDE 6 MG in DEXTROSE 5% 36 ML IV ONE (18:00)
[2018-08-14] MEDS: ATORVASTATIN 40 MG TAB PO SCH (21:00)
[2018-08-15] VITALS (97 sets, daily range): BP systolic 120–177; BP diastolic 47–86; PULSE 77–110; RESP 16–38; TEMP 99.9–100.8
[2018-08-15] MEDS: ACCU-CHEK XX SCH ×24 (00:04→23:07)
[2018-08-15] MEDS: ACETAMINOPHEN 325 MG TAB PO PRN ×4 (00:04→22:35)
[2018-08-15] MEDS: LEVALBUTEROL (HFA) 15 GM INHALER INH SCH ×4 (01:28→19:44)
[2018-08-15] MEDS: IPRATROPIUM (HFA) 12.9 GM INHALER INH SCH ×4 (01:29→19:44)
[2018-08-15] MEDS: ALBUMIN HUMAN 25% 50 ML IV SCH (02:43)
[2018-08-15] MEDS: MIDAZOLAM (DRIP) 50 mg/50 mL 50 ML IV SCH (03:49)
--- NOTE | 2018-08-15 08:04 | CONS ---
Assessment/Plan Assessment/Plan Hospital Course (Demo Recall) Cardiogenic shock: Now off inotropic support and CI 2.6 Acute respiratory failure: Remains on vent. FiO2 down to 40% Acute on chronic renal failure: Cr baseline 1.6. Continues to worsen and now appears to be volume depleted based on low CVP and PA diastolic which is a surrogate of wedge and LVEDP s/p CABG x5 08/13/18: WINN to LAD, SVG to ramus sequence to obtuse marginal artery, SVG to PDA, SVG to left ventricular extension branch. Difficult case per Dr. Howell with poor targets. CAD: s/p multiple prior PCIs. Cath 08/11/18 with multivessel disease. s/p CABG above Acute on chronic diastolic CHF: Diuresed on admission and now euvolemic Recent left femoral DVT: on Eliquis as outpt. DM HT HL -start NS 75/hr -hold lovenox with worsening renal failure -start heparin drip tomorrow or possibly back on Eliquis depending on how renal function does -continue plavix and ASA 81mg -vent weaning per pulm -lipitor 40mg -hold coreg cr 40mg and amlodipine 5mg for now, restart as hemodynamics stabilize >40 min critical care time Consultation Date/Type/Reason Admit Date/Time Aug 11, 2018 at 09:20 Initial Consult Date 08/11/18 Type of Consult Cardiology Requesting Provider: NERIS BROTHERS MD Date/Time of Note DATE: 08/15/18 TIME: 07:59 24 HR Interval Summary Free Text/Dictation Off milrinone and epi. CI 2.6. PA diastolic 10 and CVP 5. UOP decreased and Cr up to 3.5. FiO2 down to 40% Exam/Review of Systems Vital Signs Vitals Vital Signs Date Temp Pulse Resp B/P (MAP) Pulse Ox O2 O2 Flow FiO2 Time Delivery Rate 08/15/18 83 24 139/55 97 [place] 07:00 (83) l Ventilato r 08/15/18 100.0 07:00 08/15/18 40 05:00 08/13/18 2.0 09:00 Intake and Output 08/14/18 08/14/18 08/15/18 1515:00 23:00 07:00 IntakeIntake Total 491.570 ml 531.138 ml 162.53 ml OutputOutput Total 282 ml 345 ml 337 ml BalanceBalance 209.570 ml 186.138 ml -174.47 ml Exam Constitutional: No alert Head: normocephalic, atraumatic ENMT: intubated Neck: No jvd (unable to assess) Respiratory: diminished breath sounds; No clear to auscultation Cardiovascular: regular rate and rhythm, edema (1+); No systolic murmur Gastrointestinal: soft, non-tender; No distended Musculoskeletal: No nl extremities to inspection 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: No nl mental status, No nl speech Labs Result Diagram: 08/15/18 04308/15/18 0430 Results 24hrs Laboratory Tests Test 08/14/18 08:06 08/14/18 09:13 08/14/18 10:13 08/14/18 11:07 Bedside Glucose 180 160 149 173 Test 08/14/18 12:08 08/14/18 13:11 08/14/18 13:55 08/14/18 14:00 Bedside Glucose 157 173 174 Hematocrit 28.9 L Test 08/14/18 16:03 08/14/18 18:15 08/14/18 20:00 08/14/18 22:02 Bedside Glucose 159 158 157 165 White Blood Count 10.1 Red Blood Count 2.89 L Hemoglobin 8.6 L Hematocrit 26.1 L Mean Corpuscular 90.3 Volume Mean Corpuscular 29.8 Hemoglobin Mean Corpuscular 33.0 Hemoglobin Concen t Red Cell 15.1 H Distribution Width Platelet Count 83 #L Mean Platelet 10.7 H Volume Immature 0.700 H Granulocytes % Neutrophils % 74.5 Lymphocytes % 11.8 L Monocytes % 12.5 H Eosinophils % 0.3 Basophils % 0.2 Nucleated Red 0.0 Blood Cells % Immature 0.070 H Granulocytes # Neutrophils # 7.6 H Lymphocytes # 1.2 Monocytes # 1.3 H Eosinophils # 0.0 Basophils # 0.0 Nucleated Red 0.0 Blood Cells # Prothrombin Time 16.2 H Prothrombin Time 1.3 Ratio INR International 1.29 Normalized Ratio Activated 38.5 H Partial Thrombopl ast Time Sodium Level 142 Potassium Level 4.3 Chloride Level 109 Carbon Dioxide 22 Level Anion Gap 11 Blood Urea 44 H Nitrogen Creatinine 3.45 H Est Glomerular Filtrat Rate mL/min Glucose Level 144 Calcium Level 8.3 L Phosphorus Level 4.4 Magnesium Level 2.3 Test 08/15/18 00:02 08/15/18 02:13 08/15/18 04:00 08/15/18 04:30 Bedside Glucose 134 145 152 White Blood Count 6.5 # Red Blood Count 2.69 L Hemoglobin 7.9 L Hematocrit 24.3 L Mean Corpuscular 90.3 Volume Mean Corpuscular 29.4 Hemoglobin Mean Corpuscular 32.5 Hemoglobin Concen t Red Cell 15.4 H Distribution Width Platelet Count 71 L Mean Platelet 12.6 H Volume Immature 0.500 H Granulocytes % Neutrophils % 71.1 Lymphocytes % 14.6 L Monocytes % 12.1 H Eosinophils % 1.4 Basophils % 0.3 Nucleated Red 0.0 Blood Cells % Immature 0.030 Granulocytes # Neutrophils # 4.6 Lymphocytes # 1.0 Monocytes # 0.8 Eosinophils # 0.1 Basophils # 0.0 Nucleated Red 0.0 Blood Cells # Prothrombin Time 16.7 H Prothrombin Time 1.3 Ratio INR International 1.34 Normalized Ratio Activated 40.2 H Partial Thrombopl ast Time Sodium Level 144 Potassium Level 4.1 Chloride Level 110 Carbon Dioxide 23 Level Anion Gap 11 Blood Urea 48 H Nitrogen Creatinine 3.57 H Est Glomerular Filtrat Rate mL/min Glucose Level 134 Calcium Level 8.2 L Phosphorus Level 4.4 Magnesium Level 2.3 Test 08/15/18 04:35 08/15/18 06:00 Blood Gas Blood arterial Specimen Source Arterial Blood 08/15/2018 4:32:3 Date Drawn 2 AM Arterial Blood pH 7.381 (Temp corrected) Arterial Blood 37.7 pCO2 (Temp correct) Arterial Blood 81.1 pO2 (Temp corrected) Arterial Blood 21.9 L HCO3 Arterial Blood -2.9 Base Excess Arterial Blood 94.9 L Oxygen Saturation Rogelio Test N/A Arterial Blood A-Line Gas Puncture Site Arterial 0.3 Blood Carboxyhemo globin Arterial Blood 0.3 Methemoglobin Blood Gas A-a O2 160.7 H Differential Oxyhemoglobin 94.3 Percent Blood Gas 37.0 Temperature Blood Gas 16.0 Respiration Rate Blood Gas Actual 18 Respiration Rate Blood Gas VENT - AC Modality FiO2 40.0 Blood Gas Tidal 550.0 Volume Blood Gas Low 5.0 PEEP Setting Blood Gas D [employer] Notified Whom Blood Gas 08/15/2018 4:40:0 Notified Time 8 AM Bedside Glucose 140 Medications Medications Current Medications Atorvastatin Calcium (Lipitor) 40 mg HS PO Last administered on 08/14/18at 21:00; Admin Dose 40 MG; Start 08/11/18 at 21:00 Hydralazine HCl (Apresoline) 10 mg Q4H PRN IV SBP >170; Start 08/11/18 at 12:00 Diagnostic Test (Pha) (Accu-Chek) 1 ea Q1H XX Last administered on 08/15/18at 06:03; Admin Dose 1 EA; Start 08/13/18 at 17:00 Insulin Human Regular 100 unit/ Sodium Chloride 100 ml @ 0 mls/hr PER PROTOCOL IV Last administered on 08/14/18at 22:04; Admin Dose 7 MLS/HR; Start 08/13/18 at 17:00 Miscellaneous Information (* Miscellaneous Pharmacy Order) Treatment of Hypoglycemia: 1.BG 51... Per protocol XX ; Start 08/13/18 at 15:30 Dextrose (D50w Syringe) 25 ml Q15M PRN IV .DECREASED GLUCOSE; Start 08/13/18 at 15:30 Dextrose (D50w Syringe) 50 ml Q15M PRN IV .DECREASED GLUCOSE; Start 08/13/18 at 15:30 Hydromorphone HCl (Dilaudid) 0.2 mg Q15M PRN IV PAIN LEVEL 1-5 Last administered on 08/13/18at 21:36; Admin Dose 0.2 MG; Start 08/13/18 at 15:30 Hydromorphone HCl (Dilaudid) 0.4 mg Q15M PRN IV PAIN LEVEL 6-10; Start 08/13/18 at 15:30 Oxycodone/ Acetaminophen (Percocet (5/ 325)) 1 tab Q3H PRN PO PAIN LEVEL 1-5; Start 08/13/18 at 15:30 Ondansetron HCl (Zofran Inj) 4 mg Q6H PRN IV NAUSEA AND/OR VOMITING; Start 08/13/18 at 15:30 Famotidine (Pepcid Iv) 20 mg DAILY IV Last administered on 08/14/18at 09:45; Admin Dose 20 MG; Start 08/13/18 at 20:00 Acetaminophen (Tylenol Tab) 650 mg Q3H PRN PO ELEVATED TEMPERATURE Last administered on 08/15/18at 00:04; Admin Dose 650 MG; Start 08/13/18 at 15:30 Potassium Chloride 50 ml @ 50 mls/hr SEE DIRECTION PRN IVPB K+ LEVEL; Start 08/13/18 at 15:30 Magnesium Sulfate/ Dextrose 100 ml @ 100 mls/hr PRN PRN IVPB PENDING LAB VALUE; Start 08/13/18 at 15:30 Nitroglycerin/ Dextrose 250 ml @ 1.5 mls/hr PER PROTOCOL IV Last administered on 08/13/18at 16:02; Admin Dose 7.5 MLS/HR; Start 08/13/18 at 16:00 Dopamine HCl/ Dextrose 250 ml @ 8.61 mls/hr PER PROTOCOL IV Last administered on 08/13/18 16:05; Admin Dose 12.915 MLS/HR; Start 08/13/18 at 16:00 Albumin Human 250 ml @ 500 mls/hr PRN PRN IV CVP< 8, OR SBP<90 Last administered on 08/13/18 23:45; Admin Dose 500 MLS/HR; Start 08/13/18 at 17:00 Levalbuterol (Xopenex Hfa) 4 puff Q6H RESP THERAPY INH Last administered on 08/15/18 01:28; Admin Dose 4 PUFF; Start 08/13/18 at 22:00 Ipratropium [place] (Atrovent Hfa) 4 puff Q6H RESP THERAPY INH Last administered on 08/15/18 01:29; Admin Dose 4 PUFF; Start 08/13/18 at 21:00 Milrinone Lactate 100 ml @ 12.915 mls/ hr TITRATE IV Last administered on 19:17; Admin Dose 1.722 MLS/HR; Start 08/13/18 at 21:30 Phenylephrine HCl 40 mg/Dextrose 250 ml @ 37.5 mls/hr TITRATE IV Last administered on 08/14/18 00:57; Admin Dose 7.5 MLS/HR; Start 08/14/18 at 01:00 Epinephrine 4 mg/ Sodium Chloride 250 ml @ 1.88 mls/hr TITRATE IV Last administered on 08/14/18 04:24; Admin Dose 3.75 MLS/HR; Start 08/14/18 at 03:30 Midazolam HCl 50 ml @ 1 mls/hr TITRATE IV Last administered on 08/15/18 03:49; Admin Dose 8 MLS/HR; Start 08/14/18 at 03:30 Fentanyl 100 ml @ 2.5 mls/hr TITRATE IV Last administered on 08/14/18at 04:22; Admin Dose 2.5 MLS/HR; Start 08/14/18 at 03:30 Clopidogrel Bisulfate (plaVIX) 75 mg DAILY NGT Last administered on 08/14/18 09:45; Admin Dose 75 MG; Start 08/14/18 at 09:00 Aspirin (Halfprin) 81 mg DAILY PO Last administered on 08/14/18 09:45; Admin Dose 81 MG; Start 08/14/18 at 09:00 ALONDRA GILBERT Aug 15, 2018 08:04
[2018-08-15] MEDS: FAMOTIDINE 20 MG INJ IV SCH (08:11)
[2018-08-15] MEDS: ASPIRIN (EC) 81 MG TAB PO SCH (08:11)
[2018-08-15] MEDS: CLOPIDOGREL 75 MG TAB NGT SCH (08:11)
[2018-08-15] MEDS ORDERED: SOD CHLORIDE 0.9% 1,000 ML IV SCH (08:30)
--- NOTE | 2018-08-15 08:55 | CONS ---
Assessment/Plan Assessment/Plan Assessment/Plan (Daily) Ventilator settings; assist control of 16, tidal volume 550, PEEP of 5, 40% FiO2. Patient is currently on Versed 6 mg/h, fentanyl 25 mics per hour, insulin drip at 5 units/h. Chest x-ray showing cardiomegaly with pulmonary edema. Assessment and recommendations; 1. Patient status post CABG, ventilator dependent postop. 2. Worsening renal function. 3. Generalized anasarca with pulmonary edema. 4. History of diabetes and hypertension. 5. History of neuropathy as well as diabetic retinopathy 6. Anemia and severe thrombocytopenia. However no overt bleeding noted. Patient off Lovenox. 7. Prior history of pancreatitis. 8. COPD. Continue current supportive care. Obtain follow-up chest x-ray 24 hours. Continue diuresis. Monitor renal function. Patient currently is not in a position to be weaned off from invasive mechanical ventilation as of yet. 35 minutes of critical care time was spent evaluating the patient. Consultation Date/Type/Reason Admit Date/Time Aug 11, 2018 at 09:20 Initial Consult Date 08/14/18 Type of Consult Pulmonary/critical care Patient is a 73-year-old male who was admitted for elective CABG surgery. Surgery was uneventful. Patient could not be immediately extubated and was tra nsferred to ICU intubated. By the time I saw him, patient completely awake and responsive appropriately orally intubated and did not appear to be in any distress whatsoever. History has been obtained from medical records. Past medical history; 1. History of hypertension 2. Diabetes. 3. Diabetic nephropathy neuropathy and retinopathy. 4. Depression 5. CHF 6. History of pancreatitis 7. Possibly underlying COPD as well Medications; reviewed. Patient is on insulin drip 9 units/h, milrinone 0.35 mics per kilo gram per minute. Versed 4 mg/h. Other medications were reviewed as well. Allergies; none. Social history; evidently positive for smoking. Family; patient is a . Occupational history not available. Review of systems; very limited review of systems will be obtained. Patient denies any shortness of breath. General exam; elderly male, morbidly obese, orally intubated, awake, currently in no distress. Requesting Provider: NERIS BROTHERS MD Date/Time of Note DATE: 08/15/18 TIME: 08:52 24 HR Interval Summary Free Text/Dictation Patient's condition is critical. Patient however has remained hemodynamically stable. General exam; elderly male, morbidly obese, orally intubated, sedated. Currently in no distress. Exam/Review of Systems Exam Vitals Vital Signs Date Temp Pulse Resp B/P (MAP) Pulse Ox O2 O2 Flow FiO2 Time Delivery Rate 08/15/18 83 21 146/57 97 08:15 (86) 08/15/18 Mechanical 08:00 Ventilator 08/15/18 99.9 08:00 08/15/18 40 08:00 08/13/18 2.0 09:00 Intake and Output 08/14/18 08/14/18 08/15/18 1515:00 23:00 07:00 IntakeIntake Total 491.570 ml 531.138 ml 176.03 ml OutputOutput Total 282 ml 345 ml 386 ml BalanceBalance 209.570 ml 186.138 ml -209.97 ml Exam HEENT exam; supple neck, positive JVD. No lymphadenopathy. Midline trachea. No thyromegaly. Patient does have carious teeth. Orally intubated. Nipples are small bilaterally. No neck masses. Chest exam; diminished breath sounds bilaterally. S1-S2 audible, no murmurs. Regular rhythm. Left side chest tube in place. Sternal dressing in place. Abdomen exam; soft, protuberant. No organomegaly. Bowel sounds are audible. Extremity exam; 1+ anasarca. [employer] exam; patient is sedated. Results Result Diagram: 08/15/18 0430 08/15/18 0430 Results 24hrs Laboratory Tests Test 08/14/18 09:13 08/14/18 10:13 08/14/18 11:07 08/14/18 12:08 Bedside Glucose 160 149 173 157 Test 08/14/18 13:11 08/14/18 13:55 08/14/18 14:00 08/14/18 16:03 Bedside Glucose 173 174 159 Hematocrit 28.9 L Test 08/14/18 18:15 08/14/18 20:00 08/14/18 22:02 08/15/18 00:02 Bedside Glucose 158 157 165 134 White Blood Count 10.1 Red Blood Count 2.89 L Hemoglobin 8.6 L Hematocrit 26.1 L Mean Corpuscular 90.3 Volume Mean Corpuscular 29.8 Hemoglobin Mean Corpuscular 33.0 Hemoglobin Concen t Red Cell 15.1 H Distribution Width Platelet Count 83 #L Mean Platelet 10.7 H Volume Immature 0.700 H Granulocytes % Neutrophils % 74.5 Lymphocytes % 11.8 L Monocytes % 12.5 H Eosinophils % 0.3 Basophils % 0.2 Nucleated Red 0.0 Blood Cells % Immature 0.070 H Granulocytes # Neutrophils # 7.6 H Lymphocytes # 1.2 Monocytes # 1.3 H Eosinophils # 0.0 Basophils # 0.0 Nucleated Red 0.0 Blood Cells # Prothrombin Time 16.2 H Prothrombin Time 1.3 Ratio INR International 1.29 Normalized Ratio Activated 38.5 H Partial Thrombopl ast Time Sodium Level 142 Potassium Level 4.3 Chloride Level 109 Carbon Dioxide 22 Level Anion Gap 11 Blood Urea 44 H Nitrogen Creatinine 3.45 H Est Glomerular Filtrat Rate mL/min Glucose Level 144 Calcium Level 8.3 L Phosphorus Level 4.4 Magnesium Level 2.3 Test 08/15/18 02:13 08/15/18 04:00 08/15/18 04:30 08/15/18 04:35 Bedside Glucose 145 152 White Blood Count 6.5 # Red Blood Count 2.69 L Hemoglobin 7.9 L Hematocrit 24.3 L Mean Corpuscular 90.3 Volume Mean Corpuscular 29.4 Hemoglobin Mean Corpuscular 32.5 Hemoglobin Concen t Red Cell 15.4 H Distribution Width Platelet Count 71 L Mean Platelet 12.6 H Volume Immature 0.500 H Granulocytes % Neutrophils % 71.1 Lymphocytes % 14.6 L Monocytes % 12.1 H Eosinophils % 1.4 Basophils % 0.3 Nucleated Red 0.0 Blood Cells % Immature 0.030 Granulocytes # Neutrophils # 4.6 Lymphocytes # 1.0 Monocytes # 0.8 Eosinophils # 0.1 Basophils # 0.0 Nucleated Red 0.0 Blood Cells # Prothrombin Time 16.7 H Prothrombin Time 1.3 Ratio INR International 1.34 Normalized Ratio Activated 40.2 H Partial Thrombopl ast Time Sodium Level 144 Potassium Level 4.1 Chloride Level 110 Carbon Dioxide 23 Level Anion Gap 11 Blood Urea 48 H Nitrogen Creatinine 3.57 H Est Glomerular Filtrat Rate mL/min Glucose Level 134 Calcium Level 8.2 L Phosphorus Level 4.4 Magnesium Level 2.3 Blood Gas Blood arterial Specimen Source Arterial Blood 08/15/2018 4:32:3 Date Drawn 2 AM Arterial Blood pH 7.381 (Temp corrected) Arterial Blood 37.7 pCO2 (Temp correct) Arterial Blood 81.1 pO2 (Temp corrected) Arterial Blood 21.9 L HCO3 Arterial Blood -2.9 Base Excess Arterial Blood 94.9 L Oxygen Saturation Rogelio Test N/A Arterial Blood A-Line Gas Puncture Site Arterial 0.3 Blood Carboxyhemo globin Arterial Blood 0.3 Methemoglobin Blood Gas A-a O2 160.7 H Differential Oxyhemoglobin 94.3 Percent Blood Gas 37.0 Temperature Blood Gas 16.0 Respiration Rate Blood Gas Actual 18 Respiration Rate Blood Gas VENT - AC Modality FiO2 40.0 Blood Gas Tidal 550.0 Volume Blood Gas Low 5.0 PEEP Setting Blood Gas D YURIDIA PIPE RACKER Notified Whom Blood Gas 08/15/2018 4:40:0 Notified Time 8 AM Test 08/15/18 06:00 08/15/18 08:03 Bedside Glucose 140 137 Medications Medication Current Medications Atorvastatin Calcium (Lipitor) 40 mg HS PO Last administered on 08/14/18at 21:00; Admin Dose 40 MG; Start 08/11/18 at 21:00 Hydralazine HCl (Apresoline) 10 mg Q4H PRN IV SBP >170; Start 08/11/18 at 12:00 Diagnostic Test (Pha) (Accu-Chek) 1 ea Q1H XX Last administered on 08/15/18at 06:03; Admin Dose 1 EA; Start 08/13/18 at 17:00 Insulin Human Regular 100 unit/ Sodium Chloride 100 ml @ 0 mls/hr PER PROTOCOL IV Last administered on 08/14/18at 22:04; Admin Dose 7 MLS/HR; Start 08/13/18 at 17:00 Miscellaneous Information (* Miscellaneous Pharmacy Order) Treatment of Hypog lycemia: 1.BG 51... Per protocol XX ; Start 08/13/18 at 15:30 Dextrose (D50w Syringe) 25 ml Q15M PRN IV .DECREASED GLUCOSE; Start 08/13/18 at 15:30 Dextrose (D50w Syringe) 50 ml Q15M PRN IV .DECREASED GLUCOSE; Start 08/13/18 at 15:30 Hydromorphone HCl (Dilaudid) 0.2 mg Q15M PRN IV PAIN LEVEL 1-5 Last administered on 08/13/18at 21:36; Admin Dose 0.2 MG; Start 08/13/18 at 15:30 Hydromorphone HCl (Dilaudid) 0.4 mg Q15M PRN IV PAIN LEVEL 6-10; Start 08/13/18 at 15:30 Oxycodone/ Acetaminophen (Percocet (5/ 325)) 1 tab Q3H PRN PO PAIN LEVEL 1-5; Start 08/13/18 at 15:30 Ondansetron HCl (Zofran Inj) 4 mg Q6H PRN IV NAUSEA AND/OR VOMITING; Start 08/13/18 at 15:30 Famotidine (Pepcid Iv) 20 mg DAILY IV Last administered on 08/15/18 08:11; Admin Dose 20 MG; Start 08/13/18 at 20:00 Acetaminophen (Tylenol Tab) 650 mg Q3H PRN PO ELEVATED TEMPERATURE Last administered on 08/15/18 00:04; Admin Dose 650 MG; Start 08/13/18 at 15:30 Potassium Chloride 50 ml @ 50 mls/hr SEE DIRECTION PRN IVPB K+ LEVEL; Start 08/13/18 at 15:30 Magnesium Sulfate/ Dextrose 100 ml @ 100 mls/hr PRN PRN IVPB PENDING LAB VALUE; Start 08/13/18 at 15:30 Nitroglycerin/ Dextrose 250 ml @ 1.5 mls/hr PER PROTOCOL IV Last administered on 08/13/18 16:02; Admin Dose 7.5 MLS/HR; Start 08/13/18 at 16:00 Dopamine HCl/ Dextrose 250 ml @ 8.61 mls/hr PER PROTOCOL IV Last administered on 08/13/18 16:05; Admin Dose 12.915 MLS/HR; Start 08/13/18 at 16:00 Albumin Human 250 ml @ 500 mls/hr PRN PRN IV CVP< 8, OR SBP<90 Last administered on 08/13/18at 23:45; Admin Dose 500 MLS/HR; Start 08/13/18 at 17:00 Levalbuterol (Xopenex Hfa) 4 puff Q6H RESP THERAPY INH Last administered on 08/15/18 08:38; Admin Dose 4 PUFF; Start 08/13/18 at 22:00 Ipratropium [place] (Atrovent Hfa) 4 puff Q6H RESP THERAPY INH Last administe red on 08/15/18 08:38; Admin Dose 4 PUFF; Start 08/13/18 at 21:00 Milrinone Lactate 100 ml @ 12.915 mls/ hr TITRATE IV Last administered on 08/14/18 19:17; Admin Dose 1.722 MLS/HR; Start 08/13/18 at 21:30 Phenylephrine HCl 40 mg/Dextrose 250 ml @ 37.5 mls/hr TITRATE IV Last administered on 08/14/18 00:57; Admin Dose 7.5 MLS/HR; Start 08/14/18 at 01:00 Epinephrine 4 mg/ Sodium Chloride 250 ml @ 1.88 mls/hr TITRATE IV Last administered on 08/14/18 04:24; Admin Dose 3.75 MLS/HR; Start 08/14/18 at 03:30 Midazolam HCl 50 ml @ 1 mls/hr TITRATE IV Last administered on 08/15/18 03:49; Admin Dose 8 MLS/HR; Start 08/14/18 at 03:30 Fentanyl 100 ml @ 2.5 mls/hr TITRATE IV Last administered on 08/14/18 04:22; Admin Dose 2.5 MLS/HR; Start 08/14/18 at 03:30 Clopidogrel Bisulfate (plaVIX) 75 mg DAILY NGT Last administered on 08/15/18 08:11; Admin Dose 75 MG; Start 08/14/18 at 09:00 Aspirin (Halfprin) 81 mg DAILY PO Last administered on 08/15/18 08:11; Admin Dose 81 MG; Start 08/14/18 at 09:00 Sodium Chloride 1,000 ml @ 75 mls/hr [id number] IV Last administered on 08/15/18 08:10; Admin Dose 75 MLS/HR; Start 08/15/18 at 08:30 CORETTA ADAMSON Aug 15, 2018 08:55
--- NOTE | 2018-08-15 09:18 | PN ---
Date/Time of Note Date/Time of Note DATE: 08/15/18 TIME: 09:10 Assessment/Plan VTE Prophylaxis Risk score (from Ns)>0 risk: 15 SCD applied (from Ns): No SCD contraindicated: other (on.) Pharmacological prophylaxis: LMWH Lines/Catheters IV Catheter Type (from Nrs): Peripheral IV Central line still needed: Yes Urinary Cath still in place: Yes Reason Cath still needed: urinary retention Assessment/Plan Assessment/Plan 1. Ischemic heart disease angina three-vessel coronary artery disease s/p CABG x5; as above. 2. Hypertension with congestive heart failure diastolic- improved. Now euvolemic. 3. Diabetes mellitus type 2 blood sugar better controlled. On Iv insulin.Total last 24 hours 102 units iv drip. 4. History of cholecystitis and pancreatitis 5. Chronic kidney disease with baseline creatinine being 1.6 there was a number of being also 1.8 after having the diarrhea.Now 2.5. Acute on chronic [place] disease. 6. Dyslipidemia better controlled 7. History of nasal bleeding recurrent- stable. 8. Morbid obesity with snoring and apnea and daytime sleepiness 9. BPH with nocturia 10. Low back pain with radiculopathy 11. 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 Status post cataract ectomy 13. Diabetic nephropathy daily increase of creatinine by almost one; [place] rgery related and prerenal component. Rehydration. 14. Constipation- improved. 15. Grief reaction after the of her 16. Gastroesophageal reflux disease 17. Deep venous thrombosis of the left saphenous vein, 2-3 months ago;was on Eliquis 5 mg twice daily, currently stopped: since 08/11/2018. 18. Gastritis 19. COPD. Quit smoking 10years ago. 20. History of nephrolithiasis. 21.Drop of hematocrit with further drop; 2 units of prbc was ordered. 22.Slow weaning; now on Fi02 40%. 23.Pulmonary hypertension with congestion 24.Diabetic retinopathy and angiopathy and neuropathy. Result Diagram: 08/15/18 0430 08/15/18 0430 Results 24hrs Laboratory Tests Test 08/14/18 09:13 08/14/18 10:13 08/14/18 11:07 08/14/18 12:08 Bedside Glucose 160 149 173 157 Test 08/14/18 13:11 08/14/18 13:55 08/14/18 14:00 08/14/18 16:03 Bedside Glucose 173 174 159 Hematocrit 28.9 L Test 08/14/18 18:15 08/14/18 20:00 08/14/18 22:02 08/15/18 00:02 Bedside Glucose 158 157 165 134 White Blood Count 10.1 Red Blood Count 2.89 L Hemoglobin 8.6 L Hematocrit 26.1 L Mean Corpuscular 90.3 Volume Mean Corpuscular 29.8 Hemoglobin Mean Corpuscular 33.0 Hemoglobin Concen t Red Cell 15.1 H Distribution Width Platelet Count 83 #L Mean Platelet 10.7 H Volume Immature 0.700 H Granulocytes % Neutrophils % 74.5 Lymphocytes % 11.8 L Monocytes % 12.5 H Eosinophils % 0.3 Basophils % 0.2 Nucleated Red 0.0 Blood Cells % Immature 0.070 H Granulocytes # Neutrophils # 7.6 H Lymphocytes # 1.2 Monocytes # 1.3 H Eosinophils # 0.0 Basophils # 0.0 Nucleated Red 0.0 Blood Cells # Prothrombin Time 16.2 H Prothrombin Time 1.3 Ratio INR International 1.29 Normalized Ratio Activated 38.5 H Partial Thrombopl ast Time Sodium Level 142 Potassium Level 4.3 Chloride Level 109 Carbon Dioxide 22 Level Anion Gap 11 Blood Urea 44 H Nitrogen Creatinine 3.45 H Est Glomerular Filtrat Rate mL/min Glucose Level 144 Calcium Level 8.3 L Phosphorus Level 4.4 Magnesium Level 2.3 Test 08/15/18 02:13 08/15/18 04:00 08/15/18 04:30 08/15/18 04:35 Bedside Glucose 145 152 White Blood Count 6.5 # Red Blood Count 2.69 L Hemoglobin 7.9 L Hematocrit 24.3 L Mean Corpuscular 90.3 Volume Mean Corpuscular 29.4 Hemoglobin Mean Corpuscular 32.5 Hemoglobin Concen t Red Cell 15.4 H Distribution Width Platelet Count 71 L Mean Platelet 12.6 H Volume Immature 0.500 H Granulocytes % Neutrophils % 71.1 Lymphocytes % 14.6 L Monocytes % 12.1 H Eosinophils % 1.4 Basophils % 0.3 Nucleated Red 0.0 Blood Cells % Immature 0.030 Granulocytes # Neutrophils # 4.6 Lymphocytes # 1.0 Monocytes # 0.8 Eosinophils # 0.1 Basophils # 0.0 Nucleated Red 0.0 Blood Cells # Prothrombin Time 16.7 H Prothrombin Time 1.3 Ratio INR International 1.34 Normalized Ratio Activated 40.2 H Partial Thrombopl ast Time Sodium Level 144 Potassium Level 4.1 Chloride Level 110 Carbon Dioxide 23 Level Anion Gap 11 Blood Urea 48 H Nitrogen Creatinine 3.57 H Est Glomerular Filtrat Rate mL/min Glucose Level 134 Calcium Level 8.2 L Phosphorus Level 4.4 Magnesium Level 2.3 Blood Gas Blood arterial Specimen Source Arterial Blood 08/15/2018 4:32:3 Date Drawn 2 AM Arterial Blood pH 7.381 (Temp corrected) Arterial Blood 37.7 pCO2 (Temp correct) Arterial Blood 81.1 pO2 (Temp corrected) Arterial Blood 21.9 L HCO3 Arterial Blood -2.9 Base Excess Arterial Blood 94.9 L Oxygen Saturation Rogelio Test N/A Arterial Blood A-Line Gas Puncture Site Arterial 0.3 Blood Carboxyhemo globin Arterial Blood 0.3 Methemoglobin Blood Gas A-a O2 160.7 H Differential Oxyhemoglobin 94.3 Percent Blood Gas 37.0 Temperature Blood Gas 16.0 Respiration Rate Blood Gas Actual 18 Respiration Rate Blood Gas VENT - AC Modality FiO2 40.0 Blood Gas Tidal 550.0 Volume Blood Gas Low 5.0 PEEP Setting Blood Gas D YURIDIA [facility] Notified Whom Blood Gas 08/15/2018 4:40:0 Notified Time 8 AM Test 08/15/18 06:00 08/15/18 08:03 Bedside Glucose 140 137 Subjective 24 Hr Interval Summary Free Text/Dictation Unobtainable. Subjective hx not possible: pt critical, other (On the sedation.) ENT: other (Orally intubated.); No no complaints, No bleeding, No pain, No congestion, No discharge, No dysphagia, No sore throat Exam/Review of Systems Exam Vitals Vital Signs Date Temp Pulse Resp B/P (MAP) Pulse Ox O2 O2 Flow FiO2 Time Delivery Rate 08/15/18 99.9 83 24 163/64 98 09:00 (97) 08/15/18 Mechanical 08:00 Ventilator 08/15/18 40 08:00 08/13/18 2.0 09:00 Intake and Output 08/14/18 08/14/18 08/15/18 1515:00 23:00 07:00 IntakeIntake Total 491.570 ml 531.138 ml 176.03 ml OutputOutput Total 282 ml 345 ml 386 ml BalanceBalance 209.570 ml 186.138 ml -209.97 ml Constitutional: alert (Intubated on mechanical ventilation in no distress.), obese; No oriented, No well developed, No non-verbal, No distress, No frail, No other Psych: No no complaints, No nl mood/affect, No anxiety, No confusion, No depression, No suicidal, No other Head: No normocephalic, No atraumatic, No lacerations, No hematomas, No other Eyes: EOMI, nl lids, PERRL; No nl conjunctiva, No nl sclera, No icteric, No fundi, disc, No other ENMT: No nl external ears & nose, No nl lips & teeth, No nl nasal mucosa & septum, No mucosa pink and moist, No intubated, No tympanic membranes, No other Neck: jvd, bruits, nuchal rigidity, other (Right-sided central venous catheter Wan-Avani type in place no focal changes.); No supple, No non-tender, No masses, No thyromegaly Respiratory: clear to auscultation, normal air movement, crackles/rales, diminished breath sounds, other (Good aeration of both lungs.); No congested cough, No intercostal retraction, No labored breathing, No respirations, No tactile fremitus, No wheezing Cardiovascular: regular rate and rhythm, nl pulses, bruits, edema; No diastolic murmur, No gallop, No irregular rhythm, No jugular venous distention (JVD), No murmurs/extra sounds, No rub, No systolic murmur, No S3, No S4, No other Gastrointestinal: bowel sounds; No soft, No nl liver, spleen, No non-tender, No ascites, No distended, No firm, No hepatomegaly, No mass, No rebound or guarding, No splenomegaly, No surgical scars, No tender, No other Genitourinary - Male: nl penis, nl scrotum, other (Burkett is draining clear ur ine.) Musculoskeletal: joint tenderness, muscle tone, muscle weakness; No nl extremities to inspection, No nl gait and stance, No range of motion, No spine non-tender, No swelling, No other 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: MERCHANDISE PROCESSOR II-XII intact; No nl mental status, No nl speech, No nl strength, No confused, No DTR's symmetric, No focal weakness, No lethargic, No numbness, No reflexes, No unresponsive, No other Skin: nl turgor; No rash or lesions, No diaphoresis, No ecchymosis, No laceration, No puncture, No other Lymph: No nl lymph nodes, No enlarged, No nontender, No other Results Results 24hrs Laboratory Tests Test 08/14/18 09:13 08/14/18 10:13 08/14/18 11:07 08/14/18 12:08 Bedside Glucose 160 149 173 157 Test 08/14/18 13:11 08/14/18 13:55 08/14/18 14:00 08/14/18 16:03 Bedside Glucose 173 174 159 Hematocrit 28.9 L Test 08/14/18 18:15 08/14/18 20:00 08/14/18 22:02 08/15/18 00:02 Bedside Glucose 158 157 165 134 White Blood Count 10.1 Red Blood Count 2.89 L Hemoglobin 8.6 L Hematocrit 26.1 L Mean Corpuscular 90.3 Volume Mean Corpuscular 29.8 Hemoglobin Mean Corpuscular 33.0 Hemoglobin Concen t Red Cell 15.1 H Distribution Width Platelet Count 83 #L Mean Platelet 10.7 H Volume Immature 0.700 H Granulocytes % Neutrophils % 74.5 Lymphocytes % 11.8 L Monocytes % 12.5 H Eosinophils % 0.3 Basophils % 0.2 Nucleated Red 0.0 Blood Cells % Immature 0.070 H Granulocytes # Neutrophils # 7.6 H Lymphocytes # 1.2 Monocytes # 1.3 H Eosinophils # 0.0 Basophils # 0.0 Nucleated Red 0.0 Blood Cells # Prothrombin Time 16.2 H Prothrombin Time 1.3 Ratio INR International 1.29 Normalized Ratio Activated 38.5 H Partial Thrombopl ast Time Sodium Level 142 Potassium Level 4.3 Chloride Level 109 Carbon Dioxide 22 Level Anion Gap 11 Blood Urea 44 H Nitrogen Creatinine 3.45 H Est Glomerular Filtrat Rate mL/min Glucose Level 144 Calcium Level 8.3 L Phosphorus Level 4.4 Magnesium Level 2.3 Test 08/15/18 02:13 08/15/18 04:00 08/15/18 04:30 08/15/18 04:35 Bedside Glucose 145 152 White Blood Count 6.5 # Red Blood Count 2.69 L Hemoglobin 7.9 L Hematocrit 24.3 L Mean Corpuscular 90.3 Volume Mean Corpuscular 29.4 Hemoglobin Mean Corpuscular 32.5 Hemoglobin Concen t Red Cell 15.4 H Distribution Width Platelet Count 71 L Mean Platelet 12.6 H Volume Immature 0.500 H Granulocytes % Neutrophils % 71.1 Lymphocytes % 14.6 L Monocytes % 12.1 H Eosinophils % 1.4 Basophils % 0.3 Nucleated Red 0.0 Blood Cells % Immature 0.030 Granulocytes # Neutrophils # 4.6 Lymphocytes # 1.0 Monocytes # 0.8 Eosinophils # 0.1 Basophils # 0.0 Nucleated Red 0.0 Blood Cells # Prothrombin Time 16.7 H Prothrombin Time 1.3 Ratio INR International 1.34 Normalized Ratio Activated 40.2 H Partial Thrombopl ast Time Sodium Level 144 Potassium Level 4.1 Chloride Level 110 Carbon Dioxide 23 Level Anion Gap 11 Blood Urea 48 H Nitrogen Creatinine 3.57 H Est Glomerular Filtrat Rate mL/min Glucose Level 134 Calcium Level 8.2 L Phosphorus Level 4.4 Magnesium Level 2.3 Blood Gas Blood arterial Specimen Source Arterial Blood 08/15/2018 4:32:3 Date Drawn 2 AM Arterial Blood pH 7.381 (Temp corrected) Arterial Blood 37.7 pCO2 (Temp correct) Arterial Blood 81.1 pO2 (Temp corrected) Arterial Blood 21.9 L HCO3 Arterial Blood -2.9 Base Excess Arterial Blood 94.9 L Oxygen Saturation Rogelio Test N/A Arterial Blood A-Line Gas Puncture Site Arterial 0.3 Blood Carboxyhemo globin Arterial Blood 0.3 Methemoglobin Blood Gas A-a O2 160.7 H Differential Oxyhemoglobin 94.3 Percent Blood Gas 37.0 Temperature Blood Gas 16.0 Respiration Rate Blood Gas Actual 18 Respiration Rate Blood Gas VENT - AC Modality FiO2 40.0 Blood Gas Tidal 550.0 Volume Blood Gas Low 5.0 PEEP Setting Blood Gas D YURIDIA [facility] Notified Whom Blood Gas 08/15/2018 4:40:0 Notified Time 8 AM Test 08/15/18 06:00 08/15/18 08:03 Bedside Glucose 140 137 Medications Medication Current Medications Atorvastatin Calcium (Lipitor) 40 mg HS PO Last administered on 08/14/18at 21:00; Admin Dose 40 MG; Start 08/11/18 at 21:00 Hydralazine HCl (Apresoline) 10 mg Q4H PRN IV SBP >170; Start 08/11/18 at 12:00 Diagnostic Test (Pha) (Accu-Chek) 1 ea Q1H XX Last administered on 08/15/18at 06:03; Admin Dose 1 EA; Start 08/13/18 at 17:00 Insulin Human Regular 100 unit/ Sodium Chloride 100 ml @ 0 mls/hr PER PROTOCOL IV Last administered on 08/14/18at 22:04; Admin Dose 7 MLS/HR; Start 08/13/18 at 17:00 Miscellaneous Information (* Miscellaneous Pharmacy Order) Treatment of Hypoglycemia: 1.BG 51... Per protocol XX ; Start 08/13/18 at 15:30 Dextrose (D50w Syringe) 25 ml Q15M PRN IV .DECREASED GLUCOSE; Start 08/13/18 at 15:30 Dextrose (D50w Syringe) 50 ml Q15M PRN IV .DECREASED GLUCOSE; Start 08/13/18 at 15:30 Hydromorphone HCl (Dilaudid) 0.2 mg Q15M PRN IV PAIN LEVEL 1-5 Last administered on 08/13/18at 21:36; Admin Dose 0.2 MG; Start 08/13/18 at 15:30 Hydromorphone HCl (Dilaudid) 0.4 mg Q15M PRN IV PAIN LEVEL 6-10; Start 08/13/18 at 15:30 Oxycodone/ Acetaminophen (Percocet (5/ 325)) 1 tab Q3H PRN PO PAIN LEVEL 1-5; Start 08/13/18 at 15:30 Ondansetron HCl (Zofran Inj) 4 mg Q6H PRN IV NAUSEA AND/OR VOMITING; Start 08/13/18 at 15:30 Famotidine (Pepcid Iv) 20 mg DAILY IV Last administered on 08/15/18at 08:11; Admin Dose 20 MG; Start 08/13/18 at 20:00 Acetaminophen (Tylenol Tab) 650 mg Q3H PRN PO ELEVATED TEMPERATURE Last administered on 08/15/18at 00:04; Admin Dose 650 MG; Start 08/13/18 at 15:30 Potassium Chloride 50 ml @ 50 mls/hr SEE DIRECTION PRN IVPB K+ LEVEL; Start 08/13/18 at 15:30 Magnesium Sulfate/ Dextrose 100 ml @ 100 mls/hr PRN PRN IVPB PENDING LAB VALUE; Start 08/13/18 at 15:30 Nitroglycerin/ Dextrose 250 ml @ 1.5 mls/hr PER PROTOCOL IV Last administered on 08/13/18 16:02; Admin Dose 7.5 MLS/HR; Start 08/13/18 at 16:00 Dopamine HCl/ Dextrose 250 ml @ 8.61 mls/hr PER PROTOCOL IV Last administered on 08/13/18 16:05; Admin Dose 12.915 MLS/HR; Start 08/13/18 at 16:00 Albumin Human 250 ml @ 500 mls/hr PRN PRN IV CVP< 8, OR SBP<90 Last administered on 08/13/18 23:45; Admin Dose 500 MLS/HR; Start 08/13/18 at 17:00 Levalbuterol (Xopenex Hfa) 4 puff Q6H RESP THERAPY INH Last administered on 08/15/18 08:38; Admin Dose 4 PUFF; Start 08/13/18 at 22:00 Ipratropium [place] (Atrovent Hfa) 4 puff Q6H RESP THERAPY INH Last administered on 08/15/18 08:38; Admin Dose 4 PUFF; Start 08/13/18 at 21:00 Milrinone Lactate 100 ml @ 12.915 mls/ hr TITRATE IV Last administered on 08/14/18 19:17; Admin Dose 1.722 MLS/HR; Start 08/13/18 at 21:30 Phenylephrine HCl 40 mg/Dextrose 250 ml @ 37.5 mls/hr TITRATE IV Last administered on 08/14/18 00:57; Admin Dose 7.5 MLS/HR; Start 08/14/18 at 01:00 Epinephrine 4 mg/ Sodium Chloride 250 ml @ 1.88 mls/hr TITRATE IV Last administered on 08/14/18 04:24; Admin Dose 3.75 MLS/HR; Start 08/14/18 at 03:30 Midazolam HCl 50 ml @ 1 mls/hr TITRATE IV Last administered on 08/15/18 03:49; Admin Dose 8 MLS/HR; Start 08/14/18 at 03:30 Fentanyl 100 ml @ 2.5 mls/hr TITRATE IV Last administered on 08/14/18 04:22; Admin Dose 2.5 MLS/HR; Start 08/14/18 at 03:30 Clopidogrel Bisulfate (plaVIX) 75 mg DAILY NGT Last administered on 08/15/18 08:11; Admin Dose 75 MG; Start 08/14/18 at 09:00 Aspirin (Halfprin) 81 mg DAILY PO Last administered on 08/15/18 08:11; Admin Dose 81 MG; Start 08/14/18 at 09:00 Sodium Chloride 1,000 ml @ 75 mls/hr [id number] IV Last administered on 08/15/18 08:10; Admin Dose 75 MLS/HR; Start 08/15/18 at 08:30 NERIS BROTHERS MD Aug 15, 2018 09:18
[2018-08-15] MEDS: FENTAnyl (DRIP) 1000 mcg/100mL 100 ML IV SCH (11:21)
--- NOTE | 2018-08-15 11:23 | PN ---
Date/Time of Note Date/Time of Note DATE: 08/15/18 TIME: 11:21 Assessment/Plan VTE Prophylaxis Risk score (from Ns)>0 risk: 15 SCD applied (from Ns): Yes Pharmacological prophylaxis: LMWH Lines/Catheters IV Catheter Type (from Nrs): Peripheral IV Urinary Cath still in place: Yes Reason Cath still needed: other (indicate) (renal failure) Assessment/Plan Assessment/Plan Remains on vent. Still draining from chest tubes. No infection. Cr. stabilized at 3.5. UO 60/hr Result Diagram: 08/15/18 0430 08/15/18 0430 Results 24hrs Laboratory Tests Test 08/14/18 12:08 08/14/18 13:11 08/14/18 13:55 08/14/18 14:00 Bedside Glucose 157 173 174 Hematocrit 28.9 L Test 08/14/18 16:03 08/14/18 18:15 08/14/18 20:00 08/14/18 22:02 Bedside Glucose 159 158 157 165 White Blood Count 10.1 Red Blood Count 2.89 L Hemoglobin 8.6 L Hematocrit 26.1 L Mean Corpuscular 90.3 Volume Mean Corpuscular 29.8 Hemoglobin Mean Corpuscular 33.0 Hemoglobin Concen t Red Cell 15.1 H Distribution Width Platelet Count 83 #L Mean Platelet 10.7 H Volume Immature 0.700 H Granulocytes % Neutrophils % 74.5 Lymphocytes % 11.8 L Monocytes % 12.5 H Eosinophils % 0.3 Basophils % 0.2 Nucleated Red 0.0 Blood Cells % Immature 0.070 H Granulocytes # Neutrophils # 7.6 H Lymphocytes # 1.2 Monocytes # 1.3 H Eosinophils # 0.0 Basophils # 0.0 Nucleated Red 0.0 Blood Cells # Prothrombin Time 16.2 H Prothrombin Time 1.3 Ratio INR International 1.29 Normalized Ratio Activated 38.5 H Partial Thrombopl ast Time Sodium Level 142 Potassium Level 4.3 Chloride Level 109 Carbon Dioxide 22 Level Anion Gap 11 Blood Urea 44 H Nitrogen Creatinine 3.45 H Est Glomerular Filtrat Rate mL/min Glucose Level 144 Calcium Level 8.3 L Phosphorus Level 4.4 Magnesium Level 2.3 Test 08/15/18 00:02 08/15/18 02:13 08/15/18 04:00 08/15/18 04:30 Bedside Glucose 134 145 152 White Blood Count 6.5 # Red Blood Count 2.69 L Hemoglobin 7.9 L Hematocrit 24.3 L Mean Corpuscular 90.3 Volume Mean Corpuscular 29.4 Hemoglobin Mean Corpuscular 32.5 Hemoglobin Concen t Red Cell 15.4 H Distribution Width Platelet Count 71 L Mean Platelet 12.6 H Volume Immature 0.500 H Granulocytes % Neutrophils % 71.1 Lymphocytes % 14.6 L Monocytes % 12.1 H Eosinophils % 1.4 Basophils % 0.3 Nucleated Red 0.0 Blood Cells % Immature 0.030 Granulocytes # Neutrophils # 4.6 Lymphocytes # 1.0 Monocytes # 0.8 Eosinophils # 0.1 Basophils # 0.0 Nucleated Red 0.0 Blood Cells # Prothrombin Time 16.7 H Prothrombin Time 1.3 Ratio INR International 1.34 Normalized Ratio Activated 40.2 H Partial Thrombopl ast Time Sodium Level 144 Potassium Level 4.1 Chloride Level 110 Carbon Dioxide 23 Level Anion Gap 11 Blood Urea 48 H Nitrogen Creatinine 3.57 H Est Glomerular Filtrat Rate mL/min Glucose Level 134 Calcium Level 8.2 L Phosphorus Level 4.4 Magnesium Level 2.3 Test 08/15/18 04:35 08/15/18 06:00 08/15/18 08:03 08/15/18 09:52 Blood Gas Blood arterial Specimen Source Arterial Blood 08/15/2018 4:32:3 Date Drawn 2 AM Arterial Blood pH 7.381 (Temp corrected) Arterial Blood 37.7 pCO2 (Temp correct) Arterial Blood 81.1 pO2 (Temp corrected) Arterial Blood 21.9 L HCO3 Arterial Blood -2.9 Base Excess Arterial Blood 94.9 L Oxygen Saturation Rogelio Test N/A Arterial Blood A-Line Gas Puncture Site Arterial 0.3 Blood Carboxyhemo globin Arterial Blood 0.3 Methemoglobin Blood Gas A-a O2 160.7 H Differential Oxyhemoglobin 94.3 Percent Blood Gas 37.0 Temperature Blood Gas 16.0 Respiration Rate Blood Gas Actual 18 Respiration Rate Blood Gas VENT - AC Modality FiO2 40.0 Blood Gas Tidal 550.0 Volume Blood Gas Low 5.0 PEEP Setting Blood Gas D YURIDIA [facility] Notified Whom Blood Gas 08/15/2018 4:40:0 Notified Time 8 AM Bedside Glucose 140 137 131 Exam/Review of Systems Exam Vitals Vital Signs Date Temp Pulse Resp B/P (MAP) Pulse Ox O2 O2 Flow FiO2 Time Delivery Rate 08/15/18 99.9 87 24 143/76 95 11:00 (98) 08/15/18 Mechanical 10:00 Ventilator 08/15/18 35 09:48 08/13/18 2.0 09:00 Intake and Output 08/14/18 08/14/18 08/15/18 1414:59 22:59 06:59 IntakeIntake Total 502.054 ml 540.078 ml 181.91 ml OutputOutput Total 291 ml 300 ml 409 ml BalanceBalance 211.054 ml 240.078 ml -227.09 ml Results Results 24hrs Laboratory Tests Test 08/14/18 12:08 08/14/18 13:11 08/14/18 13:55 08/14/18 14:00 Bedside Glucose 157 173 174 Hematocrit 28.9 L Test 08/14/18 16:03 08/14/18 18:15 08/14/18 20:00 08/14/18 22:02 Bedside Glucose 159 158 157 165 White Blood Count 10.1 Red Blood Count 2.89 L Hemoglobin 8.6 L Hematocrit 26.1 L Mean Corpuscular 90.3 Volume Mean Corpuscular 29.8 Hemoglobin Mean Corpuscular 33.0 Hemoglobin Concen t Red Cell 15.1 H Distribution Width Platelet Count 83 #L Mean Platelet 10.7 H Volume Immature 0.700 H Granulocytes % Neutrophils % 74.5 Lymphocytes % 11.8 L Monocytes % 12.5 H Eosinophils % 0.3 Basophils % 0.2 Nucleated Red 0.0 Blood Cells % Immature 0.070 H Granulocytes # Neutrophils # 7.6 H Lymphocytes # 1.2 Monocytes # 1.3 H Eosinophils # 0.0 Basophils # 0.0 Nucleated Red 0.0 Blood Cells # Prothrombin Time 16.2 H Prothrombin Time 1.3 Ratio INR International 1.29 Normalized Ratio Activated 38.5 H Partial Thrombopl ast Time Sodium Level 142 Potassium Level 4.3 Chloride Level 109 Carbon Dioxide 22 Level Anion Gap 11 Blood Urea 44 H Nitrogen Creatinine 3.45 H Est Glomerular Filtrat Rate mL/min Glucose Level 144 Calcium Level 8.3 L Phosphorus Level 4.4 Magnesium Level 2.3 Test 08/15/18 00:02 08/15/18 02:13 08/15/18 04:00 08/15/18 04:30 Bedside Glucose 134 145 152 White Blood Count 6.5 # Red Blood Count 2.69 L Hemoglobin 7.9 L Hematocrit 24.3 L Mean Corpuscular 90.3 Volume Mean Corpuscular 29.4 Hemoglobin Mean Corpuscular 32.5 Hemoglobin Concen t Red Cell 15.4 H Distribution Width Platelet Count 71 L Mean Platelet 12.6 H Volume Immature 0.500 H Granulocytes % Neutrophils % 71.1 Lymphocytes % 14.6 L Monocytes % 12.1 H Eosinophils % 1.4 Basophils % 0.3 Nucleated Red 0.0 Blood Cells % Immature 0.030 Granulocytes # Neutrophils # 4.6 Lymphocytes # 1.0 Monocytes # 0.8 Eosinophils # 0.1 Basophils # 0.0 Nucleated Red 0.0 Blood Cells # Prothrombin Time 16.7 H Prothrombin Time 1.3 Ratio INR International 1.34 Normalized Ratio Activated 40.2 H Partial Thrombopl ast Time Sodium Level 144 Potassium Level 4.1 Chloride Level 110 Carbon Dioxide 23 Level Anion Gap 11 Blood Urea 48 H Nitrogen Creatinine 3.57 H Est Glomerular Filtrat Rate mL/min Glucose Level 134 Calcium Level 8.2 L Phosphorus Level 4.4 Magnesium Level 2.3 Test 08/15/18 04:35 08/15/18 06:00 08/15/18 08:03 08/15/18 09:52 Blood Gas Blood arterial Specimen Source Arterial Blood 08/15/2018 4:32:3 Date Drawn 2 AM Arterial Blood pH 7.381 (Temp corrected) Arterial Blood 37.7 pCO2 (Temp correct) Arterial Blood 81.1 pO2 (Temp corrected) Arterial Blood 21.9 L HCO3 Arterial Blood -2.9 Base Excess Arterial Blood 94.9 L Oxygen Saturation Rogelio Test N/A Arterial Blood A-Line Gas Puncture Site Arterial 0.3 Blood Carboxyhemo globin Arterial Blood 0.3 Methemoglobin Blood Gas A-a O2 160.7 H Differential Oxyhemoglobin 94.3 Percent Blood Gas 37.0 Temperature Blood Gas 16.0 Respiration Rate Blood Gas Actual 18 Respiration Rate Blood Gas VENT - AC Modality FiO2 40.0 Blood Gas Tidal 550.0 Volume Blood Gas Low 5.0 PEEP Setting Blood Gas D YURIDIA [facility] Notified Whom Blood Gas 08/15/2018 4:40:0 Notified Time 8 AM Bedside Glucose 140 137 131 Medications Medication Current Medications Atorvastatin Calcium (Lipitor) 40 mg HS PO Last administered on 08/14/18at 21:00; Admin Dose 40 MG; Start 08/11/18 at 21:00 Hydralazine HCl (Apresoline) 10 mg Q4H PRN IV SBP >170 Last administered on 08/15/18at 10:52; Admin Dose 10 MG; Start 08/11/18 at 12:00 Diagnostic Test (Pha) (Accu-Chek) 1 ea Q1H XX Last administered on 08/15/18at 06:03; Admin Dose 1 EA; Start 08/13/18 at 17:00 Insulin Human Regular 100 unit/ Sodium Chloride 100 ml @ 0 mls/hr PER PROTOCOL IV Last administered on 08/14/18at 22:04; Admin Dose 7 MLS/HR; Start 08/13/18 at 17:00 Miscellaneous Information (* Miscellaneous Pharmacy Order) Treatment of Hypoglycemia: 1.BG 51... Per protocol XX ; Start 08/13/18 at 15:30 Dextrose (D50w Syringe) 25 ml Q15M PRN IV .DECREASED GLUCOSE; Start 08/13/18 at 15:30 Dextrose (D50w Syringe) 50 ml Q15M PRN IV .DECREASED GLUCOSE; Start 08/13/18 at 15:30 Hydromorphone HCl (Dilaudid) 0.2 mg Q15M PRN IV PAIN LEVEL 1-5 Last administered on 08/13/18at 21:36; Admin Dose 0.2 MG; Start 08/13/18 at 15:30 Hydromorphone HCl (Dilaudid) 0.4 mg Q15M PRN IV PAIN LEVEL 6-10; Start 08/13/18 at 15:30 Oxycodone/ Acetaminophen (Percocet (5/ 325)) 1 tab Q3H PRN PO PAIN LEVEL 1-5; Start 08/13/18 at 15:30 Ondansetron HCl (Zofran Inj) 4 mg Q6H PRN IV NAUSEA AND/OR VOMITING; Start 08/13/18 at 15:30 Famotidine (Pepcid Iv) 20 mg DAILY IV Last administered on 08/15/18at 08:11; Admin Dose 20 MG; Start 08/13/18 at 20:00 Acetaminophen (Tylenol Tab) 650 mg Q3H PRN PO ELEVATED TEMPERATURE Last administered on 08/15/18at 00:04; Admin Dose 650 MG; Start 08/13/18 at 15:30 Potassium Chloride 50 ml @ 50 mls/hr SEE DIRECTION PRN IVPB K+ LEVEL; Start 08/13/18 at 15:30 Magnesium Sulfate/ Dextrose 100 ml @ 100 mls/hr PRN PRN IVPB PENDING LAB VALUE; Start 08/13/18 at 15:30 Nitroglycerin/ Dextrose 250 ml @ 1.5 mls/hr PER PROTOCOL IV Last administered on 08/13/18at 16:02; Admin Dose 7.5 MLS/HR; Start 08/13/18 at 16:00 Dopamine HCl/ Dextrose 250 ml @ 8.61 mls/hr PER PROTOCOL IV Last administered on 08/13/18 16:05; Admin Dose 12.915 MLS/HR; Start 08/13/18 at 16:00 Albumin Human 250 ml @ 500 mls/hr PRN PRN IV CVP< 8, OR SBP<90 Last administered on 08/13/18at 23:45; Admin Dose 500 MLS/HR; Start 08/13/18 at 17:00 Levalbuterol (Xopenex Hfa) 4 puff Q6H RESP THERAPY INH Last administered on 08/15/18 08:38; Admin Dose 4 PUFF; Start 08/13/18 at 22:00 Ipratropium [place] (Atrovent Hfa) 4 puff Q6H RESP THERAPY INH Last administered on 08/15/18 08:38; Admin Dose 4 PUFF; Start 08/13/18 at 21:00 Milrinone Lactate 100 ml @ 12.915 mls/ hr TITRATE IV Last administered on 08/14/18 19:17; Admin Dose 1.722 MLS/HR; Start 08/13/18 at 21:30 Phenylephrine HCl 40 mg/Dextrose 250 ml @ 37.5 mls/hr TITRATE IV Last administered on 08/14/18 00:57; Admin Dose 7.5 MLS/HR; Start 08/14/18 at 01:00 Epinephrine 4 mg/ Sodium Chloride 250 ml @ 1.88 mls/hr TITRATE IV Last administered on 08/14/18 04:24; Admin Dose 3.75 MLS/HR; Start 08/14/18 at 03:30 Midazolam HCl 50 ml @ 1 mls/hr TITRATE IV Last administered on 08/15/18 03:49; Admin Dose 8 MLS/HR; Start 08/14/18 at 03:30 Fentanyl 100 ml @ 2.5 mls/hr TITRATE IV Last administered on 08/14/18 04:22; Admin Dose 2.5 MLS/HR; Start 08/14/18 at 03:30 Clopidogrel Bisulfate (plaVIX) 75 mg DAILY NGT Last administered on 08/15/18 08:11; Admin Dose 75 MG; Start 08/14/18 at 09:00 Aspirin (Halfprin) 81 mg DAILY PO Last administered on 08/15/18 08:11; Admin Dose 81 MG; Start 08/14/18 at 09:00 Sodium Chloride 1,000 ml @ 75 mls/hr [id number] IV Last administered on 08/15/18 08:10; Admin Dose 75 MLS/HR; Start 08/15/18 at 08:30 RADHA MC MD Aug 15, 2018 11:23
--- NOTE | 2018-08-15 12:48 | CONS ---
Assessment/Plan Assessment/Plan Assessment/Plan (Daily) 1. acute kidney injury vs possible baseline CKD II due to ishcemic ATN 2. 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 H/o HTN 4. H/o HL 5. H/o DM II 6. H/o CAD with previous stent placement Plan: pt remained on ventilator, BUN/Cr went upto 48/3.57, BP stable- pt is makign adequate urine, will give IV albumin 25% 100ml IV x 1 followed by lasix 20mg iV x 1 dose K and HCo3 normal, continue other post op care will follow up Consultation Date/Type/Reason Admit Date/Time Aug 11, 2018 at 09:20 Initial Consult Date 08/11/18 Type of Consult NEPHROLOGY Requesting Provider: NERIS BROTHERS MD Date/Time of Note DATE: 08/15/18 TIME: 12:48 24 HR Interval Summary Free Text/Dictation pt remained on ventilator, BUN/Cr went upto 48/3.57, BP stable, Exam/Review of Systems Exam Vitals Vital Signs Date Temp Pulse Resp B/P (MAP) Pulse Ox O2 O2 Flow FiO2 Time Delivery Rate 08/15/18 99.9 85 21 143/79 96 12:00 (100) 08/15/18 Mechanical 12:00 Ventilator 08/15/18 35 11:00 08/13/18 2.0 09:00 Intake and Output 08/14/18 08/14/18 08/15/18 1515:00 23:00 07:00 IntakeIntake Total 491.570 ml 531.138 ml 176.03 ml OutputOutput Total 282 ml 345 ml 386 ml BalanceBalance 209.570 ml 186.138 ml -209.97 ml Constitutional: distress ENMT: other (Intubated on ventilator ) Neck: supple, non-tender Respiratory: other (Bilateras Coares BS+, no wheezing, basilar rales ) Cardiovascular: regular rate and rhythm, nl pulses Gastrointestinal: soft, non-tender, other (Non distended ) Musculoskeletal: nl extremities to inspection Extremities: normal pulses 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: other (Intubated, sedate don ventilator ) Skin: nl turgor Lymph: nl lymph nodes Results Result Diagram: 08/15/18 0430 08/15/18 0430 Results 24hrs Laboratory Tests Test 08/14/18 13:11 08/14/18 13:55 08/14/18 14:00 08/14/18 16:03 Bedside Glucose 173 174 159 Hematocrit 28.9 L Test 08/14/18 18:15 08/14/18 20:00 08/14/18 22:02 08/15/18 00:02 Bedside Glucose 158 157 165 134 White Blood Count 10.1 Red Blood Count 2.89 L Hemoglobin 8.6 L Hematocrit 26.1 L Mean Corpuscular 90.3 Volume Mean Corpuscular 29.8 Hemoglobin Mean Corpuscular 33.0 Hemoglobin Concen t Red Cell 15.1 H Distribution Width Platelet Count 83 #L Mean Platelet 10.7 H Volume Immature 0.700 H Granulocytes % Neutrophils % 74.5 Lymphocytes % 11.8 L Monocytes % 12.5 H Eosinophils % 0.3 Basophils % 0.2 Nucleated Red 0.0 Blood Cells % Immature 0.070 H Granulocytes # Neutrophils # 7.6 H Lymphocytes # 1.2 Monocytes # 1.3 H Eosinophils # 0.0 Basophils # 0.0 Nucleated Red 0.0 Blood Cells # Prothrombin Time 16.2 H Prothrombin Time 1.3 Ratio INR International 1.29 Normalized Ratio Activated 38.5 H Partial Thrombopl ast Time Sodium Level 142 Potassium Level 4.3 Chloride Level 109 Carbon Dioxide 22 Level Anion Gap 11 Blood Urea 44 H Nitrogen Creatinine 3.45 H Est Glomerular Filtrat Rate mL/min Glucose Level 144 Calcium Level 8.3 L Phosphorus Level 4.4 Magnesium Level 2.3 Test 08/15/18 02:13 08/15/18 04:00 08/15/18 04:30 08/15/18 04:35 Bedside Glucose 145 152 White Blood Count 6.5 # Red Blood Count 2.69 L Hemoglobin 7.9 L Hematocrit 24.3 L Mean Corpuscular 90.3 Volume Mean Corpuscular 29.4 Hemoglobin Mean Corpuscular 32.5 Hemoglobin Concen t Red Cell 15.4 H Distribution Width Platelet Count 71 L Mean Platelet 12.6 H Volume Immature 0.500 H Granulocytes % Neutrophils % 71.1 Lymphocytes % 14.6 L Monocytes % 12.1 H Eosinophils % 1.4 Basophils % 0.3 Nucleated Red 0.0 Blood Cells % Immature 0.030 Granulocytes # Neutrophils # 4.6 Lymphocytes # 1.0 Monocytes # 0.8 Eosinophils # 0.1 Basophils # 0.0 Nucleated Red 0.0 Blood Cells # Prothrombin Time 16.7 H Prothrombin Time 1.3 Ratio INR International 1.34 Normalized Ratio Activated 40.2 H Partial Thrombopl ast Time Sodium Level 144 Potassium Level 4.1 Chloride Level 110 Carbon Dioxide 23 Level Anion Gap 11 Blood Urea 48 H Nitrogen Creatinine 3.57 H Est Glomerular Filtrat Rate mL/min Glucose Level 134 Calcium Level 8.2 L Phosphorus Level 4.4 Magnesium Level 2.3 Blood Gas Blood arterial Specimen Source Arterial Blood 08/15/2018 4:32:3 Date Drawn 2 AM Arterial Blood pH 7.381 (Temp corrected) Arterial Blood 37.7 pCO2 (Temp correct) Arterial Blood 81.1 pO2 (Temp corrected) Arterial Blood 21.9 L HCO3 Arterial Blood -2.9 Base Excess Arterial Blood 94.9 L Oxygen Saturation Rogelio Test N/A Arterial Blood A-Line Gas Puncture Site Arterial 0.3 Blood Carboxyhemo globin Arterial Blood 0.3 Methemoglobin Blood Gas A-a O2 160.7 H Differential Oxyhemoglobin 94.3 Percent Blood Gas 37.0 Temperature Blood Gas 16.0 Respiration Rate Blood Gas Actual 18 Respiration Rate Blood Gas VENT - AC Modality FiO2 40.0 Blood Gas Tidal 550.0 Volume Blood Gas Low 5.0 PEEP Setting Blood Gas D YURIDIA [facility] Notified Whom Blood Gas 08/15/2018 4:40:0 Notified Time 8 AM Test 08/15/18 06:00 08/15/18 08:03 08/15/18 09:52 08/15/18 11:57 Bedside Glucose 140 137 131 136 Medications Medication Current Medications Atorvastatin Calcium (Lipitor) 40 mg HS PO Last administered on 08/14/18at 21:00; Admin Dose 40 MG; Start 08/11/18 at 21:00 Hydralazine HCl (Apresoline) 10 mg Q4H PRN IV SBP >170 Last administered on 08/15/18at 10:52; Admin Dose 10 MG; Start 08/11/18 at 12:00 Diagnostic Test (Pha) (Accu-Chek) 1 ea Q1H XX Last administered on 08/15/18 06:03; Admin Dose 1 EA; Start 08/13/18 at 17:00 Insulin Human Regular 100 unit/ Sodium Chloride 100 ml @ 0 mls/hr PER PROTOCOL IV Last administered on 08/14/18at 22:04; Admin Dose 7 MLS/HR; Start 08/13/18 at 17:00 Miscellaneous Information (* Miscellaneous Pharmacy Order) Treatment of Hypoglycemia: 1.BG 51... Per protocol XX ; Start 08/13/18 at 15:30 Dextrose (D50w Syringe) 25 ml Q15M PRN IV .DECREASED GLUCOSE; Start 08/13/18 at 15:30 Dextrose (D50w Syringe) 50 ml Q15M PRN IV .DECREASED GLUCOSE; Start 08/13/18 at 15:30 Hydromorphone HCl (Dilaudid) 0.2 mg Q15M PRN IV PAIN LEVEL 1-5 Last administered on 08/13/18at 21:36; Admin Dose 0.2 MG; Start 08/13/18 at 15:30 Hydromorphone HCl (Dilaudid) 0.4 mg Q15M PRN IV PAIN LEVEL 6-10; Start 08/13/18 at 15:30 Oxycodone/ Acetaminophen (Percocet (5/ 325)) 1 tab Q3H PRN PO PAIN LEVEL 1-5; Start 08/13/18 at 15:30 Ondansetron HCl (Zofran Inj) 4 mg Q6H PRN IV NAUSEA AND/OR VOMITING; Start 08/13/18 at 15:30 Famotidine (Pepcid Iv) 20 mg DAILY IV Last administered on 08/15/18at 08:11; Admin Dose 20 MG; Start 08/13/18 at 20:00 Acetaminophen (Tylenol Tab) 650 mg Q3H PRN PO ELEVATED TEMPERATURE Last administered on 08/15/18at 00:04; Admin Dose 650 MG; Start 08/13/18 at 15:30 Potassium Chloride 50 ml @ 50 mls/hr SEE DIRECTION PRN IVPB K+ LEVEL; Start 08/13/18 at 15:30 Magnesium Sulfate/ Dextrose 100 ml @ 100 mls/hr PRN PRN IVPB PENDING LAB VALUE; Start 08/13/18 at 15:30 Nitroglycerin/ Dextrose 250 ml @ 1.5 mls/hr PER PROTOCOL IV Last administered on 08/13/18at 16:02; Admin Dose 7.5 MLS/HR; Start 08/13/18 at 16:00 Dopamine HCl/ Dextrose 250 ml @ 8.61 mls/hr PER PROTOCOL IV Last administered on 08/13/18 16:05; Admin Dose 12.915 MLS/HR; Start 08/13/18 at 16:00 Albumin Human 250 ml @ 500 mls/hr PRN PRN IV CVP< 8, OR SBP<90 Last administered on 08/13/18 23:45; Admin Dose 500 MLS/HR; Start 08/13/18 at 17:00 Levalbuterol (Xopenex Hfa) 4 puff Q6H RESP THERAPY INH Last administered on 08/15/18 08:38; Admin Dose 4 PUFF; Start 08/13/18 at 22:00 Ipratropium [place] (Atrovent Hfa) 4 puff Q6H RESP THERAPY INH Last administered on 08/15/18 08:38; Admin Dose 4 PUFF; Start 08/13/18 at 21:00 Milrinone Lactate 100 ml @ 12.915 mls/ hr TITRATE IV Last administered on 08/14/18 19:17; Admin Dose 1.722 MLS/HR; Start 08/13/18 at 21:30 Phenylephrine HCl 40 mg/Dextrose 250 ml @ 37.5 mls/hr TITRATE IV Last administ ered on 08/14/18 00:57; Admin Dose 7.5 MLS/HR; Start 08/14/18 at 01:00 Epinephrine 4 mg/ Sodium Chloride 250 ml @ 1.88 mls/hr TITRATE IV Last administered on 08/14/18 04:24; Admin Dose 3.75 MLS/HR; Start 08/14/18 at 03:30 Midazolam HCl 50 ml @ 1 mls/hr TITRATE IV Last administered on 08/15/18 03:49; Admin Dose 8 MLS/HR; Start 08/14/18 at 03:30 Fentanyl 100 ml @ 2.5 mls/hr TITRATE IV Last administered on 08/15/18 11:21; Admin Dose 5 MLS/HR; Start 08/14/18 at 03:30 Clopidogrel Bisulfate (plaVIX) 75 mg DAILY NGT Last administered on 08/15/18 08:11; Admin Dose 75 MG; Start 08/14/18 at 09:00 Aspirin (Halfprin) 81 mg DAILY PO Last administered on 08/15/18 08:11; Admin Dose 81 MG; Start 08/14/18 at 09:00 Sodium Chloride 1,000 ml @ 75 mls/hr [id number] IV Last administered on 08/15/18at 08:10; Admin Dose 75 MLS/HR; Start 08/15/18 at 08:30 DARRYL OSOD MD Aug 15, 2018 12:48
[2018-08-15] MEDS ORDERED: FUROSEMIDE 20 MG INJ IV ONE (13:00)
[2018-08-15] MEDS ORDERED: ALBUMIN HUMAN 25% 100 ML IV ONE (13:00)
[2018-08-15] MEDS ORDERED: BUMETANIDE 1 MG INJ IV ONE (13:00)
[2018-08-15] MEDS: INSULIN HUMAN REGULAR 100 UNIT in SOD CHLORIDE 0.9% 99 ML IV SCH (18:25)
[2018-08-15] MEDS: ATORVASTATIN 40 MG TAB PO SCH (21:27)
[2018-08-16] VITALS (84 sets, daily range): BP systolic 92–173; BP diastolic 46–116; PULSE 69–95; RESP 16–42; TEMP 100.2–100.8
[2018-08-16] MEDS: ACCU-CHEK XX SCH ×24 (00:11→23:14)
[2018-08-16] MEDS: LEVALBUTEROL (HFA) 15 GM INHALER INH SCH ×2 (01:14→08:04)
[2018-08-16] MEDS: IPRATROPIUM (HFA) 12.9 GM INHALER INH SCH ×2 (01:14→08:04)
[2018-08-16] MEDS: FENTAnyl (DRIP) 1000 mcg/100mL 100 ML IV SCH (02:54)
[2018-08-16] MEDS: ACETAMINOPHEN 325 MG TAB PO PRN ×2 (04:20→13:57)
[2018-08-16] MEDS: NITROGLYCERIN 50 MG/D5W (PMX) 250 ML IV SCH (06:14)
[2018-08-16] MEDS: INSULIN HUMAN REGULAR 100 UNIT in SOD CHLORIDE 0.9% 99 ML IV SCH ×3 (06:33→21:37)
--- NOTE | 2018-08-16 07:28 | PN ---
Date/Time of Note Date/Time of Note DATE: 08/16/18 TIME: 07:27 Assessment/Plan Lines/Catheters IV Catheter Type (from Nrs): Cordis Burkett in Place (from Nrs): Yes Assessment/Plan Assessment/Plan fever overnight, cultures sent. HD stable on NTG. wean vent. d/c swan. creat improved, urine output adequate. Exam/Review of Systems Vital Signs Vitals Vital Signs Date Temp Pulse Resp B/P (MAP) Pulse Ox O2 O2 Flow FiO2 Time Delivery Rate 08/16/18 80 19 164/67 97 [place] 06:15 (99) l Ventilato r 08/16/18 100.4 06:00 08/16/18 35 05:16 08/13/18 2.0 09:00 Intake and Output 08/15/18 08/15/18 08/16/18 1515:00 23:00 07:00 IntakeIntake Total 837.75 ml 433.0 ml 202 ml OutputOutput Total 1224 ml 1101 ml 226 ml BalanceBalance -386.25 ml -668.0 ml -24 ml Results Result Diagram: 08/16/18 0603 08/16/18 0500 LESIA DANIELLE MD Aug 16, 2018 07:28
[2018-08-16] MEDS: ASPIRIN (EC) 81 MG TAB PO SCH (08:43)
[2018-08-16] MEDS: FAMOTIDINE 20 MG INJ IV SCH (08:43)
[2018-08-16] MEDS: CLOPIDOGREL 75 MG TAB NGT SCH (08:43)
--- NOTE | 2018-08-16 08:44 | PN ---
Date/Time of Note Date/Time of Note DATE: 08/16/18 TIME: 08:43 Assessment/Plan VTE Prophylaxis Risk score (from Ns)>0 risk: 17 SCD applied (from [facility] [place]): Yes SCD contraindicated: other (no.) Pharmacological prophylaxis: LMWH Pharm contraindication: other (none.) Lines/Catheters IV Catheter Type (from [facility]): Peripheral IV Central line still needed: No Urinary Cath still in place: Yes Reason Cath still needed: urinary retention Assessment/Plan Assessment/Plan 1. Ischemic heart disease angina three-vessel coronary a. disease.s/p CABG x5 08/13/18: WINN to LAD, SVG to ramus sequence to obtuse marginal artery, SVG to PDA, SVG to left ventricular extension branch. Difficult case per Dr. Howell with poor targets.Vein harvesting and epiaortic scanning of the ascending aorta.CAD: s/p multiple prior PCIs. Cath 08/11/18 with multivessel disease. 2. Hypertension with congestive heart failure diastolic- improved. Now euvolemic. 3. Diabetes mellitus type 2 blood sugar better controlled. On Iv insulin. 4. History of cholecystitis and pancreatitis 5. Acute on chronic kidney disease with baseline creatinine being 1.6 up to 3.5 came down to 2.95 now. Improved after hydration,now mildly dehydrated 6. Dyslipidemia better controlled 7. History of nasal bleeding recurrent- stable. 8. Morbid obesity with snoring and apnea and daytime sleepiness 9. BPH with nocturia 10. Low back pain with radiculopathy 11. 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 Status post cataract ectomy 13. Diabetic nephropathy retinopathy and angiopathy and neuropathy. 14. Constipation- improved. 15. Grief reaction after the of her 16. Gastroesophageal reflux disease 17. Deep venous thrombosis of the left saphenous vein, 2-3 months ago;was on Eliquis 5 mg twice daily, stopped: since 08/11/2018. 18. Gastritis 19. COPD. Quit smoking 10years ago.Planned to extubate; now on weaning mode; with 02sat now 95% . 20. History of nephrolithiasis. 21. Drop of hematocrit; s/p 2 units of prbc tx. stable. 22. Drop of albumone and total protein and mild elevation of lft's. Result Diagram: 08/16/18 0603 08/16/18 0500 Results 24hrs Laboratory Tests Test 08/15/18 09:52 08/15/18 11:57 08/15/18 13:56 08/15/18 16:03 Bedside Glucose 131 136 127 167 Test 08/15/18 18:02 08/15/18 19:48 08/15/18 21:45 08/15/18 23:39 Bedside Glucose 169 182 190 213 Test 08/16/18 01:50 08/16/18 04:09 08/16/18 04:49 08/16/18 05:00 Bedside Glucose 199 211 Lab Scanned BLOOD TRANSFUSIO Report N Prothrombin Time 15.2 H Prothrombin Time 1.2 Ratio INR International 1.19 Normalized Ratio Activated 32.6 Partial Thrombopl ast Time Sodium Level 143 Potassium Level 4.6 Chloride Level 109 Carbon Dioxide 24 Level Anion Gap 10 Blood Urea 57 H Nitrogen Creatinine 3.25 H Est Glomerular Filtrat Rate mL/min Glucose Level 232 H Calcium Level 8.5 Phosphorus Level 4.2 Magnesium Level 2.2 Total Bilirubin 0.5 Direct Bilirubin 0.00 Indirect 0.5 Bilirubin Aspartate Amino 121 H Transf (AST/SGOT) Alanine 21 Aminotransferase (ALT/SGPT) Alkaline 54 Phosphatase Total Protein 6.3 Albumin 3.4 Globulin 2.90 Albumin/Globulin 1.17 Ratio Test 08/16/18 05:47 08/16/18 06:03 08/16/18 06:55 08/16/18 08:21 Bedside Glucose 249 H 240 H 200 White Blood Count 7.9 # Red Blood Count 3.32 #L Hemoglobin 9.6 #L Hematocrit 30.6 #L Mean Corpuscular 92.2 Volume Mean Corpuscular 28.9 L Hemoglobin Mean Corpuscular 31.4 L Hemoglobin Concen t Red Cell 15.4 H Distribution Width Platelet Count 79 L Mean Platelet 12.8 H Volume Immature 0.900 H Granulocytes % Neutrophils % 70.5 Lymphocytes % 14.0 L Monocytes % 10.7 Eosinophils % 3.6 Basophils % 0.3 Nucleated Red 0.0 Blood Cells % Immature 0.070 H Granulocytes # Neutrophils # 5.6 Lymphocytes # 1.1 Monocytes # 0.8 Eosinophils # 0.3 Basophils # 0.0 Nucleated Red 0.0 Blood Cells # Subjective 24 Hr Interval Summary Free Text/Dictation Intubated. Subjective hx not possible: other Exam/Review of Systems Exam Vitals Vital Signs Date Temp Pulse Resp B/P (MAP) Pulse Ox O2 O2 Flow FiO2 Time Delivery Rate 08/16/18 100.2 80 19 153/64 96 08:00 (93) 08/16/18 [employer] 06:15 l Ventilato r 08/16/18 35 05:16 08/13/18 2.0 09:00 Intake and Output 08/15/18 08/15/18 08/16/18 1515:00 23:00 07:00 IntakeIntake Total 837.75 ml 433.0 ml 222 ml OutputOutput Total 1224 ml 1101 ml 244 ml BalanceBalance -386.25 ml -668.0 ml -22 ml Constitutional: distress, frail, other (Intubated still on mechanical ventilation currently on a weaning mode. Able to communicate by opening eyes answering some questions with head movements. Then goes back to sleep.); No alert, No oriented, No well developed, No non-verbal, No obese Psych: confusion; No no complaints, No nl mood/affect, No anxiety, No depression, No suicidal, No other Head: normocephalic, atraumatic; No lacerations, No hematomas, No other Eyes: nl lids, PERRL; No nl conjunctiva, No EOMI, No nl sclera, No icteric, No fundi, disc, No other ENMT: No nl external ears & nose, No nl lips & teeth, No nl nasal mucosa & septum, No mucosa pink and moist, No intubated, No tympanic membranes, No other Neck: jvd, bruits, thyromegaly, nuchal rigidity; No supple, No non-tender, No masses, No other Respiratory: congested cough, crackles/rales, diminished breath sounds; No clear to auscultation, No normal air movement, No intercostal retraction, No labored breathing, No respirations, No tactile fremitus, No wheezing, No other Cardiovascular: regular rate and rhythm, edema, jugular venous distention (JVD), systolic murmur; No nl pulses, No bruits, No diastolic murmur, No gallop, No irregular rhythm, No murmurs/extra sounds, No rub, No S3, No S4, No other Gastrointestinal: soft, nl liver, spleen, bowel sounds; No non-tender, No ascites, No distended, No firm, No hepatomegaly, No mass, No rebound or guarding, No splenomegaly, No surgical scars, No tender, No other Genitourinary - Male: nl penis, nl scrotum Musculoskeletal: joint tenderness; No nl extremities to inspection, No nl gait and stance, No muscle tone, No muscle weakness, No range of motion, No spine non-tender, No swelling, No other Extremities: normal pulses; No calf tenderness, No cyanosis, No clubbing, No edema, No pitting pedal edema, No palpable cord, No tenderness, No other 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: [employer] TIGHT II-XII intact, nl mental status; No nl speech, No nl strength, No confused, No DTR's symmetric, No focal weakness, No lethargic, No numbness, No reflexes, No unresponsive, No other Skin: nl turgor; No rash or lesions, No diaphoresis, No ecchymosis, No laceration, No puncture, No other Lymph: No nl lymph nodes, No enlarged, No nontender, No other Results Results 24hrs Laboratory Tests Test 08/15/18 09:52 08/15/18 11:57 08/15/18 13:56 08/15/18 16:03 Bedside Glucose 131 136 127 167 Test 08/15/18 18:02 08/15/18 19:48 08/15/18 21:45 08/15/18 23:39 Bedside Glucose 169 182 190 213 Test 08/16/18 01:50 08/16/18 04:09 08/16/18 04:49 08/16/18 05:00 Bedside Glucose 199 211 Lab Scanned BLOOD TRANSFUSIO Report N Prothrombin Time 15.2 H Prothrombin Time 1.2 Ratio INR International 1.19 Normalized Ratio Activated 32.6 Partial Thrombopl ast Time Sodium Level 143 Potassium Level 4.6 Chloride Level 109 Carbon Dioxide 24 Level Anion Gap 10 Blood Urea 57 H Nitrogen Creatinine 3.25 H Est Glomerular Filtrat Rate mL/min Glucose Level 232 H Calcium Level 8.5 Phosphorus Level 4.2 Magnesium Level 2.2 Total Bilirubin 0.5 Direct Bilirubin 0.00 Indirect 0.5 Bilirubin Aspartate Amino 121 H Transf (AST/SGOT) Alanine 21 Aminotransferase (ALT/SGPT) Alkaline 54 Phosphatase Total Protein 6.3 Albumin 3.4 Globulin 2.90 Albumin/Globulin 1.17 Ratio Test 08/16/18 05:47 08/16/18 06:03 08/16/18 06:55 08/16/18 08:21 Bedside Glucose 249 H 240 H 200 White Blood Count 7.9 # Red Blood Count 3.32 #L Hemoglobin 9.6 #L Hematocrit 30.6 #L Mean Corpuscular 92.2 Volume Mean Corpuscular 28.9 L Hemoglobin Mean Corpuscular 31.4 L Hemoglobin Concen t Red Cell 15.4 H Distribution Width Platelet Count 79 L Mean Platelet 12.8 H Volume Immature 0.900 H Granulocytes % Neutrophils % 70.5 Lymphocytes % 14.0 L Monocytes % 10.7 Eosinophils % 3.6 Basophils % 0.3 Nucleated Red 0.0 Blood Cells % Immature 0.070 H Granulocytes # Neutrophils # 5.6 Lymphocytes # 1.1 Monocytes # 0.8 Eosinophils # 0.3 Basophils # 0.0 Nucleated Red 0.0 Blood Cells # Medications Medication Current Medications Atorvastatin Calcium (Lipitor) 40 mg HS PO Last administered on 08/15/18at 21:27; Admin Dose 40 MG; Start 08/11/18 at 21:00 Hydralazine HCl (Apresoline) 10 mg Q4H PRN IV SBP >170 Last administered on 08/15/18at 10:52; Admin Dose 10 MG; Start 08/11/18 at 12:00 Diagnostic Test (Pha) (Accu-Chek) 1 ea Q1H XX Last administered on 08/16/18at 08:25; Admin Dose 1 EA; Start 08/13/18 at 17:00 Insulin Human Regular 100 unit/ Sodium Chloride 100 ml @ 0 mls/hr PER PROTOCOL IV Last administered on 08/16/18at 06:33; Admin Dose 16 MLS/HR; Start 08/13/18 at 17:00 Miscellaneous Information (* Miscellaneous Pharmacy Order) Treatment of Hypoglycemia: 1.BG 51... Per protocol XX ; Start 08/13/18 at 15:30 Dextrose (D50w Syringe) 25 ml Q15M PRN IV .DECREASED GLUCOSE; Start 08/13/18 at 15:30 Dextrose (D50w Syringe) 50 ml Q15M PRN IV .DECREASED GLUCOSE; Start 08/13/18 at 15:30 Hydromorphone HCl (Dilaudid) 0.2 mg Q15M PRN IV PAIN LEVEL 1-5 Last administered on 08/13/18 21:36; Admin Dose 0.2 MG; Start 08/13/18 at 15:30 Hydromorphone HCl (Dilaudid) 0.4 mg Q15M PRN IV PAIN LEVEL 6-10 Last administered on 08/15/18 12:50; Admin Dose 0.4 MG; Start 08/13/18 at 15:30 Oxycodone/ Acetaminophen (Percocet (5/ 325)) 1 tab Q3H PRN PO PAIN LEVEL 1-5; Start 08/13/18 at 15:30 Ondansetron HCl (Zofran Inj) 4 mg Q6H PRN IV NAUSEA AND/OR VOMITING; Start 08/13/18 at 15:30 Famotidine (Pepcid Iv) 20 mg DAILY IV Last administered on 08/15/18 08:11; Admin Dose 20 MG; Start 08/13/18 at 20:00 Acetaminophen (Tylenol Tab) 650 mg Q3H PRN PO ELEVATED TEMPERATURE Last administered on 08/16/18 04:20; Admin Dose 650 MG; Start 08/13/18 at 15:30 Potassium Chloride 50 ml @ 50 mls/hr SEE DIRECTION PRN IVPB K+ LEVEL; Start 08/13/18 at 15:30 Magnesium Sulfate/ Dextrose 100 ml @ 100 mls/hr PRN PRN IVPB PENDING LAB VALUE; Start 08/13/18 at 15:30 Nitroglycerin/ Dextrose 250 ml @ 1.5 mls/hr PER PROTOCOL IV Last administered on 08/16/18 06:14; Admin Dose 1.5 MLS/HR; Start 08/13/18 at 16:00 Dopamine HCl/ Dextrose 250 ml @ 8.61 mls/hr PER PROTOCOL IV Last administered on 08/13/18 16:05; Admin Dose 12.915 MLS/HR; Start 08/13/18 at 16:00 Albumin Human 250 ml @ 500 mls/hr PRN PRN IV CVP< 8, OR SBP<90 Last administered on 08/13/18 23:45; Admin Dose 500 MLS/HR; Start 08/13/18 at 17:00 Levalbuterol (Xopenex Hfa) 4 puff Q6H RESP THERAPY INH Last administered on 08/16/18 08:04; Admin Dose 4 PUFF; Start 08/13/18 at 22:00 Ipratropium [place] (Atrovent Hfa) 4 puff Q6H RESP THERAPY INH Last administered on 08/16/18 08:04; Admin Dose 4 PUFF; Start 08/13/18 at 21:00 Milrinone Lactate 100 ml @ 12.915 mls/ hr TITRATE IV Last administered on 08/14/18 19:17; Admin Dose 1.722 MLS/HR; Start 08/13/18 at 21:30 Phenylephrine HCl 40 mg/Dextrose 250 ml @ 37.5 mls/hr TITRATE IV Last administered on 08/14/18 00:57; Admin Dose 7.5 MLS/HR; Start 08/14/18 at 01:00 Epinephrine 4 mg/ Sodium Chloride 250 ml @ 1.88 mls/hr TITRATE IV Last administered on 08/14/18 04:24; Admin Dose 3.75 MLS/HR; Start 08/14/18 at 03:30 Midazolam HCl 50 ml @ 1 mls/hr TITRATE IV Last administered on 08/15/18 03:49; Admin Dose 8 MLS/HR; Start 08/14/18 at 03:30 Fentanyl 100 ml @ 2.5 mls/hr TITRATE IV Last administered on 08/16/18 02:54; Admin Dose 8 MLS/HR; Start 08/14/18 at 03:30 Clopidogrel Bisulfate (plaVIX) 75 mg DAILY NGT Last administered on 08/15/18 08:11; Admin Dose 75 MG; Start 08/14/18 at 09:00 Aspirin (Halfprin) 81 mg DAILY PO Last administered on 08/15/18 08:11; Admin Dose 81 MG; Start 08/14/18 at 09:00 NERIS BROTHERS MD Aug 16, 2018 08:44
--- NOTE | 2018-08-16 09:44 | CONS ---
Assessment/Plan Assessment/Plan Hospital Course (Demo Recall) Acute on chronic diastolic CHF: close to euvolemic with some mild CHF by CXR Cardiogenic shock: Now off inotropic support and CI 2.6 Acute respiratory failure: Remains on vent. Being weaned Acute on chronic renal failure: Cr baseline 1.6. Worse after CABG.Now slight improvement with improvement in UOP as well Anemia: from operative blood loss. Required one unit. No active bleeding s/p CABG x5 08/13/18: WINN to LAD, SVG to ramus sequence to obtuse marginal artery, SVG to PDA, SVG to left ventricular extension branch. Difficult case per Dr. Howell with poor targets. CAD: s/p multiple prior PCIs. Cath 08/11/18 with multivessel disease. s/p CABG above Recent left femoral DVT: on Eliquis as outpt. DM HT HL -lasix 20mg IV x 1 -restart Eliquis 5mg BID as hgb responded nicely to one unit and there is no evidence of active bleeding -continue plavix -d/c ASA 81mg -restart coreg cr 20mg and amlodipine 5mg -wean off NTG drip -vent weaning per pulm -lipitor 40mg >40 min critical care time Consultation Date/Type/Reason Admit Date/Time Aug 11, 2018 at 09:20 Initial Consult Date 08/11/18 Type of Consult Cardiology Requesting Provider: NERIS BROTHERS MD Date/Time of Note DATE: 08/16/18 TIME: 09:36 24 HR Interval Summary Free Text/Dictation UOP increased. Cr slightly better. Ono removed (final CVP 10, PAP 30s). Waking up. Family at bedside. Exam/Review of Systems Vital Signs Vitals Vital Signs Date Temp Pulse Resp B/P (MAP) Pulse Ox O2 O2 Flow FiO2 Time Delivery Rate 08/16/18 100.2 80 19 153/64 96 08:00 (93) 08/16/18 [employer] 06:15 l Ventilato r 08/16/18 35 05:16 08/13/18 2.0 09:00 Intake and Output 08/15/18 08/15/18 08/16/18 1515:00 23:00 07:00 IntakeIntake Total 837.75 ml 433.0 ml 222 ml OutputOutput Total 1224 ml 1101 ml 244 ml BalanceBalance -386.25 ml -668.0 ml -22 ml Exam Constitutional: No alert (somnolent but responsive) Head: normocephalic, atraumatic ENMT: intubated Neck: No jvd (unable to assess) Respiratory: diminished breath sounds; No clear to auscultation Cardiovascular: regular rate and rhythm, edema (trace) Gastrointestinal: soft, non-tender; No distended Musculoskeletal: No nl extremities to inspection 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: No nl mental status, No nl speech Labs Result Diagram: 08/16/18 0603 08/16/18 0500 Results 24hrs Laboratory Tests Test 08/15/18 09:52 08/15/18 11:57 08/15/18 13:56 08/15/18 16:03 Bedside Glucose 131 136 127 167 Test 08/15/18 18:02 08/15/18 19:48 08/15/18 21:45 08/15/18 23:39 Bedside Glucose 169 182 190 213 Test 08/16/18 01:50 08/16/18 04:09 08/16/18 04:49 08/16/18 05:00 Bedside Glucose 199 211 Lab Scanned BLOOD TRANSFUSIO Report N Prothrombin Time 15.2 H Prothrombin Time 1.2 Ratio INR International 1.19 Normalized Ratio Activated 32.6 Partial Thrombopl ast Time Sodium Level 143 Potassium Level 4.6 Chloride Level 109 Carbon Dioxide 24 Level Anion Gap 10 Blood Urea 57 H Nitrogen Creatinine 3.25 H Est Glomerular Filtrat Rate mL/min Glucose Level 232 H Calcium Level 8.5 Phosphorus Level 4.2 Magnesium Level 2.2 Total Bilirubin 0.5 Direct Bilirubin 0.00 Indirect 0.5 Bilirubin Aspartate Amino 121 H Transf (AST/SGOT) Alanine 21 Aminotransferase (ALT/SGPT) Alkaline 54 Phosphatase Total Protein 6.3 Albumin 3.4 Globulin 2.90 Albumin/Globulin 1.17 Ratio Test 08/16/18 05:47 08/16/18 06:03 08/16/18 06:55 08/16/18 08:21 Bedside Glucose 249 H 240 H 200 White Blood Count 7.9 # Red Blood Count 3.32 #L Hemoglobin 9.6 #L Hematocrit 30.6 #L Mean Corpuscular 92.2 Volume Mean Corpuscular 28.9 L Hemoglobin Mean Corpuscular 31.4 L Hemoglobin Concen t Red Cell 15.4 H Distribution Width Platelet Count 79 L Mean Platelet 12.8 H Volume Immature 0.900 H Granulocytes % Neutrophils % 70.5 Lymphocytes % 14.0 L Monocytes % 10.7 Eosinophils % 3.6 Basophils % 0.3 Nucleated Red 0.0 Blood Cells % Immature 0.070 H Granulocytes # Neutrophils # 5.6 Lymphocytes # 1.1 Monocytes # 0.8 Eosinophils # 0.3 Basophils # 0.0 Nucleated Red 0.0 Blood Cells # Test 08/16/18 09:22 Bedside Glucose 178 Medications Medications Current Medications Atorvastatin Calcium (Lipitor) 40 mg HS PO Last administered on 08/15/18 21:27; Admin Dose 40 MG; Start 08/11/18 at 21:00 Hydralazine HCl (Apresoline) 10 mg Q4H PRN IV SBP >170 Last administered on 08/15/18 10:52; Admin Dose 10 MG; Start 08/11/18 at 12:00 Diagnostic Test (Pha) (Accu-Chek) 1 ea Q1H XX Last administered on 08/16/18 08:25; Admin Dose 1 EA; Start 08/13/18 at 17:00 Insulin Human Regular 100 unit/ Sodium Chloride 100 ml @ 0 mls/hr PER PROTOCOL IV Last administered on 08/16/18 06:33; Admin Dose 16 MLS/HR; Start 08/13/18 at 17:00 Miscellaneous Information (* Miscellaneous Pharmacy Order) Treatment of Hypogl ycemia: 1.BG 51... Per protocol XX ; Start 08/13/18 at 15:30 Dextrose (D50w Syringe) 25 ml Q15M PRN IV .DECREASED GLUCOSE; Start 08/13/18 at 15:30 Dextrose (D50w Syringe) 50 ml Q15M PRN IV .DECREASED GLUCOSE; Start 08/13/18 at 15:30 Hydromorphone HCl (Dilaudid) 0.2 mg Q15M PRN IV PAIN LEVEL 1-5 Last administered on 08/13/18at 21:36; Admin Dose 0.2 MG; Start 08/13/18 at 15:30 Hydromorphone HCl (Dilaudid) 0.4 mg Q15M PRN IV PAIN LEVEL 6-10 Last administered on 08/15/18at 12:50; Admin Dose 0.4 MG; Start 08/13/18 at 15:30 Oxycodone/ Acetaminophen (Percocet (5/ 325)) 1 tab Q3H PRN PO PAIN LEVEL 1-5; Start 08/13/18 at 15:30 Ondansetron HCl (Zofran Inj) 4 mg Q6H PRN IV NAUSEA AND/OR VOMITING; Start 08/13/18 at 15:30 Famotidine (Pepcid Iv) 20 mg DAILY IV Last administered on 08/16/18at 08:43; Admin Dose 20 MG; Start 08/13/18 at 20:00 Acetaminophen (Tylenol Tab) 650 mg Q3H PRN PO ELEVATED TEMPERATURE Last administered on 08/16/18 04:20; Admin Dose 650 MG; Start 08/13/18 at 15:30 Potassium Chloride 50 ml @ 50 mls/hr SEE DIRECTION PRN IVPB K+ LEVEL; Start 08/13/18 at 15:30 Magnesium Sulfate/ Dextrose 100 ml @ 100 mls/hr PRN PRN IVPB PENDING LAB VALUE; Start 08/13/18 at 15:30 Nitroglycerin/ Dextrose 250 ml @ 1.5 mls/hr PER PROTOCOL IV Last administered on 08/16/18at 06:14; Admin Dose 1.5 MLS/HR; Start 08/13/18 at 16:00 Dopamine HCl/ Dextrose 250 ml @ 8.61 mls/hr PER PROTOCOL IV Last administered on 08/13/18at 16:05; Admin Dose 12.915 MLS/HR; Start 08/13/18 at 16:00 Albumin Human 250 ml @ 500 mls/hr PRN PRN IV CVP< 8, OR SBP<90 Last administered on 08/13/18at 23:45; Admin Dose 500 MLS/HR; Start 08/13/18 at 17:00 Levalbuterol (Xopenex Hfa) 4 puff Q6H RESP THERAPY INH Last administered on 08/16/18 08:04; Admin Dose 4 PUFF; Start 08/13/18 at 22:00 Ipratropium [place] (Atrovent Hfa) 4 puff Q6H RESP THERAPY INH Last administered on 08/16/18 08:04; Admin Dose 4 PUFF; Start 08/13/18 at 21:00 Milrinone Lactate 100 ml @ 12.915 mls/ hr TITRATE IV Last administered on 19:17; Admin Dose 1.722 MLS/HR; Start 08/13/18 at 21:30 Phenylephrine HCl 40 mg/Dextrose 250 ml @ 37.5 mls/hr TITRATE IV Last administered on 08/14/18 00:57; Admin Dose 7.5 MLS/HR; Start 08/14/18 at 01:00 Epinephrine 4 mg/ Sodium Chloride 250 ml @ 1.88 mls/hr TITRATE IV Last administered on 08/14/18 04:24; Admin Dose 3.75 MLS/HR; Start 08/14/18 at 03:30 Midazolam HCl 50 ml @ 1 mls/hr TITRATE IV Last administered on 08/15/18 03:49; Admin Dose 8 MLS/HR; Start 08/14/18 at 03:30 Fentanyl 100 ml @ 2.5 mls/hr TITRATE IV Last administered on 08/16/18 02:54; Admin Dose 8 MLS/HR; Start 08/14/18 at 03:30 Clopidogrel Bisulfate (plaVIX) 75 mg DAILY NGT Last administered on 08/16/18 08:43; Admin Dose 75 MG; Start 08/14/18 at 09:00 Aspirin (Halfprin) 81 mg DAILY PO Last administered on 08/16/18 08:43; Admin Dose 81 MG; Start 08/14/18 at 09:00 ALONDRA GILBERT Aug 16, 2018 09:43
[2018-08-16] MEDS ORDERED: CARvedilol (CR) 20 MG CAP PO SCH (10:00)
[2018-08-16] MEDS ORDERED: FUROSEMIDE 20 MG INJ IV ONE ×2 (10:00→16:00)
[2018-08-16] MEDS: AMLODIPINE 5 MG TAB PO SCH (10:01)
[2018-08-16] MEDS: APIXABAN 5 MG TABLET PO SCH ×2 (10:04→20:35)
--- NOTE | 2018-08-16 10:08 | CONS ---
Consult Date/Type/Reason Admit Date/Time Aug 11, 2018 at 09:20 Initial Consult Date 08/14/18 Requesting Provider: NERIS BROTHERS MD Date/Time of Note DATE: 08/16/18 TIME: 10:01 Subjective On CPAP with PS x 30 minutes. Doing well. Alert on the vent. Objective Vitals Vital Signs Date Temp Pulse Resp B/P (MAP) Pulse Ox O2 O2 Flow FiO2 Time Delivery Rate 08/16/18 100.2 80 19 153/64 96 08:00 (93) 08/16/18 [place] 06:15 l Ventilato r 08/16/18 35 05:16 08/13/18 2.0 09:00 Intake and Output 08/15/18 08/15/18 08/16/18 1515:00 23:00 07:00 IntakeIntake Total 837.75 ml 433.0 ml 222 ml OutputOutput Total 1224 ml 1101 ml 244 ml BalanceBalance -386.25 ml -668.0 ml -22 ml Exam HEENT: Neck supple; no JVD; no LAD; + ET tube CVS: RRR, S1 and S2, 2/6 CUBA CHEST: Bibasilar rales ABD: Soft, NT, + BS EXT: No c/c/e Results/Medications Result Diagram: 08/16/18 0603 08/16/18 0500 Results 24 hrs Laboratory Tests Test 08/15/18 11:57 08/15/18 13:56 08/15/18 16:03 08/15/18 18:02 Bedside Glucose 136 127 167 169 Test 08/15/18 19:48 08/15/18 21:45 08/15/18 23:39 08/16/18 01:50 Bedside Glucose 182 190 213 199 Test 08/16/18 04:09 08/16/18 04:49 08/16/18 05:00 08/16/18 05:47 Bedside Glucose 211 249 H Lab Scanned BLOOD TRANSFUSIO Report N Prothrombin Time 15.2 H Prothrombin Time 1.2 Ratio INR International 1.19 Normalized Ratio Activated 32.6 Partial Thrombopl ast Time Sodium Level 143 Potassium Level 4.6 Chloride Level 109 Carbon Dioxide 24 Level Anion Gap 10 Blood Urea 57 H Nitrogen Creatinine 3.25 H Est Glomerular Filtrat Rate mL/min Glucose Level 232 H Calcium Level 8.5 Phosphorus Level 4.2 Magnesium Level 2.2 Total Bilirubin 0.5 Direct Bilirubin 0.00 Indirect 0.5 Bilirubin Aspartate Amino 121 H Transf (AST/SGOT) Alanine 21 Aminotransferase (ALT/SGPT) Alkaline 54 Phosphatase Total Protein 6.3 Albumin 3.4 Globulin 2.90 Albumin/Globulin 1.17 Ratio Test 08/16/18 06:03 08/16/18 06:55 08/16/18 08:21 08/16/18 09:22 White Blood Count 7.9 # Red Blood Count 3.32 #L Hemoglobin 9.6 #L Hematocrit 30.6 #L Mean Corpuscular 92.2 Volume Mean Corpuscular 28.9 L Hemoglobin Mean Corpuscular 31.4 L Hemoglobin Concen t Red Cell 15.4 H Distribution Width Platelet Count 79 L Mean Platelet 12.8 H Volume Immature 0.900 H Granulocytes % Neutrophils % 70.5 Lymphocytes % 14.0 L Monocytes % 10.7 Eosinophils % 3.6 Basophils % 0.3 Nucleated Red 0.0 Blood Cells % Immature 0.070 H Granulocytes # Neutrophils # 5.6 Lymphocytes # 1.1 Monocytes # 0.8 Eosinophils # 0.3 Basophils # 0.0 Nucleated Red 0.0 Blood Cells # Bedside Glucose 240 H 200 178 Home Meds Reported Medications Insulin Aspart* (Novolog Insulin Pen*) 100 Unit/Ml Soln, 0 SC .SLIDING SCALE AC, EA AC MEALS 08/11/18 Insulin Detemir (Levemir Flextouch) 100 Unit/1 Ml Insuln.pen, 25 UNIT SQ QHS, EA 08/11/18 Potassium Chloride* (K-Dur*) 10 Meq Tab.prt.sr, 10 MEQ PO DAILY, TAB 08/11/18 Furosemide* (Furosemide*) 40 Mg Tablet, 40 MG PO DAILY, TAB 08/11/18 Aspirin (Low Dose Aspirin) 81 Mg Tablet.dr, 81 MG PO DAILY, #30 TAB 08/11/18 Apixaban* (Eliquis*) 5 Mg Tablet, 5 MG PO BID, TAB 08/11/18 Clonidine Hcl* (Clonidine Hcl*) 0.1 Mg Tab, 0.1 MG PO DAILY PRN for ELEVATED BLOOD PRESSURE, TAB 08/11/18 Carvedilol* (Coreg CR*) 40 Mg Capsr, 40 MG PO DAILY, #30 CAP 08/11/18 Rosuvastatin Calcium* (Crestor*) 40 Mg Tablet, 40 MG PO QHS, #30 TAB 08/11/18 Amlodipine Besylate* (Norvasc*) 5 Mg Tablet, 5 MG PO DAILY, TAB 08/11/18 Discontinued Reported Medications Carvedilol* (Coreg CR*) 80 Mg Cpmp.24hr, 80 MG PO HS 07/20/11 Clonidine Hcl* (Clonidine Hcl*) 0.2 Mg Tablet, 0.2 MG PO BID PRN 07/20/11 Insulin Aspart* (Novolog Insulin Vial*) 100 U/Ml Vial 10/14/10 Insulin Detemir* (Levemir*) 100 U/Ml Vial 10/14/10 Prasugrel Hydrochloride* (Effient*) 10 Mg Tablet 10/14/10 Pantoprazole* (Protonix*) 40 Mg Tablet. 10/14/10 Ramipril (Altace) 10 Mg Tablet 11/21/09 Medications Current Medications Atorvastatin Calcium (Lipitor) 40 mg HS PO Last administered on 08/15/18at 21:27; Admin Dose 40 MG; Start 08/11/18 at 21:00 Hydralazine HCl (Apresoline) 10 mg Q4H PRN IV SBP >170 Last administered on 08/15/18at 10:52; Admin Dose 10 MG; Start 08/11/18 at 12:00 Diagnostic Test (Pha) (Accu-Chek) 1 ea Q1H XX Last administered on 08/16/18at 09:22; Admin Dose 1 EA; Start 08/13/18 at 17:00 Insulin Human Regular 100 unit/ Sodium Chloride 100 ml @ 0 mls/hr PER PROTOCOL IV Last administered on 08/16/18at 06:33; Admin Dose 16 MLS/HR; Start 08/13/18 at 17:00 Miscellaneous Information (* Miscellaneous Pharmacy Order) Treatment of Hypoglycemia: 1.BG 51... Per protocol XX ; Start 08/13/18 at 15:30 Dextrose (D50w Syringe) 25 ml Q15M PRN IV .DECREASED GLUCOSE; Start 08/13/18 at 15:30 Dextrose (D50w Syringe) 50 ml Q15M PRN IV .DECREASED GLUCOSE; Start 08/13/18 at 15:30 Hydromorphone HCl (Dilaudid) 0.2 mg Q15M PRN IV PAIN LEVEL 1-5 Last administered on 08/13/18 21:36; Admin Dose 0.2 MG; Start 08/13/18 at 15:30 Hydromorphone HCl (Dilaudid) 0.4 mg Q15M PRN IV PAIN LEVEL 6-10 Last administered on 08/15/18 12:50; Admin Dose 0.4 MG; Start 08/13/18 at 15:30 Oxycodone/ Acetaminophen (Percocet (5/ 325)) 1 tab Q3H PRN PO PAIN LEVEL 1-5; Start 08/13/18 at 15:30 Ondansetron HCl (Zofran Inj) 4 mg Q6H PRN IV NAUSEA AND/OR VOMITING; Start 08/13/18 at 15:30 Famotidine (Pepcid Iv) 20 mg DAILY IV Last administered on 08/16/18 08:43; Admin Dose 20 MG; Start 08/13/18 at 20:00 Acetaminophen (Tylenol Tab) 650 mg Q3H PRN PO ELEVATED TEMPERATURE Last administered on 08/16/18 04:20; Admin Dose 650 MG; Start 08/13/18 at 15:30 Potassium Chloride 50 ml @ 50 mls/hr SEE DIRECTION PRN IVPB K+ LEVEL; Start 08/13/18 at 15:30 Magnesium Sulfate/ Dextrose 100 ml @ 100 mls/hr PRN PRN IVPB PENDING LAB VALUE; Start 08/13/18 at 15:30 Nitroglycerin/ Dextrose 250 ml @ 1.5 mls/hr PER PROTOCOL IV Last administered on 08/16/18 06:14; Admin Dose 1.5 MLS/HR; Start 08/13/18 at 16:00 Dopamine HCl/ Dextrose 250 ml @ 8.61 mls/hr PER PROTOCOL IV Last administered on 08/13/18 16:05; Admin Dose 12.915 MLS/HR; Start 08/13/18 at 16:00 Albumin Human 250 ml @ 500 mls/hr PRN PRN IV CVP< 8, OR SBP<90 Last administered on 08/13/18 23:45; Admin Dose 500 MLS/HR; Start 08/13/18 at 17:00 Levalbuterol (Xopenex Hfa) 4 puff Q6H RESP THERAPY INH Last administered on 08/16/18 08:04; Admin Dose 4 PUFF; Start 08/13/18 at 22:00 Ipratropium Depauw (Atrovent Hfa) 4 puff Q6H RESP THERAPY INH Last administered on 08/16/18 08:04; Admin Dose 4 PUFF; Start 08/13/18 at 21:00 Milrinone Lactate 100 ml @ 12.915 mls/ hr TITRATE IV Last administered on 08/14/18 19:17; Admin Dose 1.722 MLS/HR; Start 08/13/18 at 21:30 Phenylephrine HCl 40 mg/Dextrose 250 ml @ 37.5 mls/hr TITRATE IV Last a dministered on 08/14/18 00:57; Admin Dose 7.5 MLS/HR; Start 08/14/18 at 01:00 Epinephrine 4 mg/ Sodium Chloride 250 ml @ 1.88 mls/hr TITRATE IV Last administered on 08/14/18 04:24; Admin Dose 3.75 MLS/HR; Start 08/14/18 at 03:30 Midazolam HCl 50 ml @ 1 mls/hr TITRATE IV Last administered on 08/15/18 03:49; Admin Dose 8 MLS/HR; Start 08/14/18 at 03:30 Fentanyl 100 ml @ 2.5 mls/hr TITRATE IV Last administered on 08/16/18 02:54; Admin Dose 8 MLS/HR; Start 08/14/18 at 03:30 Clopidogrel Bisulfate (plaVIX) 75 mg DAILY NGT Last administered on 08/16/18 08:43; Admin Dose 75 MG; Start 08/14/18 at 09:00 Carvedilol (Coreg Cr) 20 mg DAILY PO ; Start 08/16/18 at 10:00 Amlodipine Besylate (Norvasc) 5 mg DAILY PO ; Start 08/16/18 at 09:30 Furosemide (Lasix) 20 mg ONCE ONCE IV Last administered on 08/16/18 09:43; Admin Dose 20 MG; Start 08/16/18 at 10:00; Stop 08/16/18 at 10:01 Apixaban (Eliquis) 5 mg BID PO ; Start 08/16/18 at 10:00 Assessment/Plan Assessment/Plan (Daily) IMP: 1. s/p CABG--POD#2. 2. Vent Dependence post-op--currently weaning. Intravascular olume status a bit unclear, though on CXR appears volume overloaded 3. SOCORRO 4. HTN 5. HLD 6. COPD 7. DM 8. Thrombocytopenia RECS: 1. Albumin 25% 50 ml, followed by lasix 80 mg IVP 2. Continue CPAP/PS x 2 hours; check RSBI and extubate if < 105 3. Follow renal function and UO closely 4. Lower FiO2 as tolerated to maintain SpO2 88-92% 5. Follow platelets 6. DVT and GI prophylaxis 40 min cc time PETRA LESLIE MD Aug 16, 2018 10:08
[2018-08-16] MEDS ORDERED: FUROSEMIDE 40 MG INJ IV ONE (10:30)
[2018-08-16] MEDS ORDERED: ALBUMIN HUMAN 25% 50 ML IV ONE (10:30)
[2018-08-16] MEDS: HYDROmorphONE 0.5 MG/0.5 ML SYG IV PRN (11:24)
[2018-08-16] MEDS ORDERED: IPRATROPIUM (HFA) 12.9 GM INHALER INH PRN (14:30)
--- NOTE | 2018-08-16 18:52 | CONS ---
Assessment/Plan Assessment/Plan Assessment/Plan (Daily) 1. acute kidney injury vs possible baseline CKD II due to ishcemic ATN = Hemodynamics 2. 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 H/o HTN 4. H/o HL 5. H/o DM II 6. H/o CAD with previous stent placement Plan: Lasix 40mg iVx 1 in AM given, will give another lasix IV in evening extubation plan as per pulmonary and CT surgery will follow up Consultation Date/Type/Reason Admit Date/Time Aug 11, 2018 at 09:20 Initial Consult Date 08/11/18 Type of Consult NEPHROLOGY Requesting Provider: NERIS BROTHERS MD Date/Time of Note DATE: 08/16/18 TIME: 18:52 24 HR Interval Summary Free Text/Dictation /p Lasix 40mg iV x in AM, plan for extubatio, will plan for Another lasix today Exam/Review of Systems Exam Vitals Vital Signs Date Temp Pulse Resp B/P (MAP) Pulse Ox O2 O2 Flow FiO2 Time Delivery Rate 08/16/18 77 33 131/69 95 18:15 (89) 08/16/18 Nasal 18:00 Cannula 08/16/18 4.0 16:00 08/16/18 99.2 16:00 08/16/18 35 12:00 Intake and Output 08/15/18 08/15/18 08/16/18 1515:00 23:00 07:00 IntakeIntake Total 837.75 ml 433.0 ml 222 ml OutputOutput Total 1224 ml 1101 ml 244 ml BalanceBalance -386.25 ml -668.0 ml -22 ml Results Result Diagram: 08/16/18 0603 08/16/18 0500 Results 24hrs Laboratory Tests Test 08/15/18 19:48 08/15/18 21:45 08/15/18 23:39 08/16/18 01:50 Bedside Glucose 182 190 213 199 Test 08/16/18 04:09 08/16/18 04:49 08/16/18 05:00 08/16/18 05:47 Bedside Glucose 211 249 H Lab Scanned BLOOD TRANSFUSI Report ON Prothrombin 15.2 H Time Prothrombin 1.2 Time Ratio INR 1.19 International Normalized Rati o Activated 32.6 Partial Thrombo plast Time Sodium Level 143 Potassium Level 4.6 Chloride Level 109 Carbon Dioxide 24 Level Anion Gap 10 Blood Urea 57 H Nitrogen Creatinine 3.25 H Est Glomerular Filtrat Rate mL/min Glucose Level 232 H Calcium Level 8.5 Phosphorus 4.2 Level Magnesium Level 2.2 Total Bilirubin 0.5 Direct 0.00 Bilirubin Indirect 0.5 Bilirubin Aspartate Amino 121 H Transf (AST/SGO T) Alanine 21 Aminotransferas e (ALT/SGPT) Alkaline 54 Phosphatase Total Protein 6.3 Albumin 3.4 Globulin 2.90 Albumin/Globuli 1.17 n Ratio Test 08/16/18 06:03 08/16/18 06:55 08/16/18 08:21 08/16/18 09:22 White Blood 7.9 # Count Red Blood Count 3.32 #L Hemoglobin 9.6 #L Hematocrit 30.6 #L Mean 92.2 Corpuscular Volume Mean 28.9 L Corpuscular Hemoglobin Mean 31.4 L Corpuscular Hemoglobin Conc ent Red Cell 15.4 H Distribution Width Platelet Count 79 L Mean Platelet 12.8 H Volume Immature 0.900 H Granulocytes % Neutrophils % 70.5 Lymphocytes % 14.0 L Monocytes % 10.7 Eosinophils % 3.6 Basophils % 0.3 Nucleated Red 0.0 Blood Cells % Immature 0.070 H Granulocytes # Neutrophils # 5.6 Lymphocytes # 1.1 Monocytes # 0.8 Eosinophils # 0.3 Basophils # 0.0 Nucleated Red 0.0 Blood Cells # Bedside Glucose 240 H 200 178 Test 08/16/18 10:00 08/16/18 10:25 08/16/18 11:28 08/16/18 12:23 Blood Gas Blood arterial Specimen Source Arterial Blood 08/16/2018 11:27 Date Drawn :27 AM Arterial Blood 7.404 pH (Temp corrected ) Arterial Blood 39.0 pCO2 (Temp correct) Arterial Blood 65.8 L pO2 (Temp corrected ) Arterial Blood 23.8 HCO3 Arterial Blood -0.7 Base Excess Arterial Blood 92.1 L Oxygen Saturati on Rogelio Test N/A Arterial Blood A-Line Gas Puncture Site Arterial 0.3 Blood Carboxyhe moglobin Arterial Blood 0.3 Methemoglobin Blood Gas A-a 138.4 H O2 Differential Oxyhemoglobin 91.5 L Percent Blood Gas 37.0 Temperature Blood Gas 24 Actual Respiration Rat e Blood Gas VENT - CPAP Modality FiO2 35.0 Blood Gas Low 5.0 PEEP Setting Blood Gas 10 Pressure Support Blood Gas MDA Notified Whom Blood Gas 08/16/2018 11:34 Notified Time :30 AM Bedside Glucose 156 124 127 Test 08/16/18 13:34 08/16/18 14:31 08/16/18 15:37 08/16/18 16:04 Bedside Glucose 135 153 164 Blood Gas Blood Specimen arterial Source Arterial Blood 08/16/2018 4:44 Date Drawn :55 PM Arterial Blood 7.332 L pH (Temp corrected ) Arterial Blood 50.6 H pCO2 (Temp correct) Arterial Blood 82.5 pO2 (Temp corrected ) Arterial Blood 26.2 H HCO3 Arterial Blood -0.2 Base Excess Arterial Blood 94.5 L Oxygen Saturati on Rogelio Test ACCEPTAB Arterial Blood Right Radial Gas Puncture Site Arterial 0.5 Blood Carboxyhe moglobin Arterial Blood 0.3 Methemoglobin Blood Gas A-a 137.3 H O2 Differential Oxyhemoglobin 93.7 Percent Blood Gas 37.0 Temperature Blood Gas NASAL CANNULA Modality FiO2 39.0 Blood Gas MDA Notified Whom Blood Gas 08/16/2018 4:47 Notified Time :41 PM Test 08/16/18 16:46 08/16/18 17:52 Bedside Glucose 172 154 Medications Medication Current Medications Atorvastatin Calcium (Lipitor) 40 mg HS PO Last administered on 08/15/18at 21:27; Admin Dose 40 MG; Start 08/11/18 at 21:00 Hydralazine HCl (Apresoline) 10 mg Q4H PRN IV SBP >170 Last administered on 08/15/18at 10:52; Admin Dose 10 MG; Start 08/11/18 at 12:00 Diagnostic Test (Pha) (Accu-Chek) 1 ea Q1H XX Last administered on 08/16/18at 18:09; Admin Dose 1 EA; Start 08/13/18 at 17:00 Insulin Human Regular 100 unit/ Sodium Chloride 100 ml @ 0 mls/hr PER PROTOCOL IV Last administered on 08/16/18at 06:33; Admin Dose 16 MLS/HR; Start 08/13/18 at 17:00 Miscellaneous Information (* Miscellaneous Pharmacy Order) Treatment of Hypoglycemia: 1.BG 51... Per protocol XX ; Start 08/13/18 at 15:30 Dextrose (D50w Syringe) 25 ml Q15M PRN IV .DECREASED GLUCOSE; Start 08/13/18 at 15:30 Dextrose (D50w Syringe) 50 ml Q15M PRN IV .DECREASED GLUCOSE; Start 08/13/18 at 15:30 Hydromorphone HCl (Dilaudid) 0.2 mg Q15M PRN IV PAIN LEVEL 1-5 Last administered on 08/16/18at 11:24; Admin Dose 0.2 MG; Start 08/13/18 at 15:30 Hydromorphone HCl (Dilaudid) 0.4 mg Q15M PRN IV PAIN LEVEL 6-10 Last administered on 08/15/18at 12:50; Admin Dose 0.4 MG; Start 08/13/18 at 15:30 Oxycodone/ Acetaminophen (Percocet (5/ 325)) 1 tab Q3H PRN PO PAIN LEVEL 1-5; Start 08/13/18 at 15:30 Ondansetron HCl (Zofran Inj) 4 mg Q6H PRN IV NAUSEA AND/OR VOMITING; Start 08/13/18 at 15:30 Famotidine (Pepcid Iv) 20 mg DAILY IV Last administered on 08/16/18at 08:43; Admin Dose 20 MG; Start 08/13/18 at 20:00 Acetaminophen (Tylenol Tab) 650 mg Q3H PRN PO ELEVATED TEMPERATURE Last administered on 08/16/18at 13:57; Admin Dose 650 MG; Start 08/13/18 at 15:30 Potassium Chloride 50 ml @ 50 mls/hr SEE DIRECTION PRN IVPB K+ LEVEL; Start 08/13/18 at 15:30 Magnesium Sulfate/ Dextrose 100 ml @ 100 mls/hr PRN PRN IVPB PENDING LAB VALUE; Start 08/13/18 at 15:30 Nitroglycerin/ Dextrose 250 ml @ 1.5 mls/hr PER PROTOCOL IV Last administered on 08/16/18at 06:14; Admin Dose 1.5 MLS/HR; Start 08/13/18 at 16:00 Dopamine HCl/ Dextrose 250 ml @ 8.61 mls/hr PER PROTOCOL IV Last administered on 08/13/18at 16:05; Admin Dose 12.915 MLS/HR; Start 08/13/18 at 16:00 Albumin Human 250 ml @ 500 mls/hr PRN PRN IV CVP< 8, OR SBP<90 Last administered on 08/13/18 23:45; Admin Dose 500 MLS/HR; Start 08/13/18 at 17:00 Milrinone Lactate 100 ml @ 12.915 mls/ hr TITRATE IV Last administered on 08/14/18 19:17; Admin Dose 1.722 MLS/HR; Start 08/13/18 at 21:30 Phenylephrine HCl 40 mg/Dextrose 250 ml @ 37.5 mls/hr TITRATE IV Last administered on 08/14/18 00:57; Admin Dose 7.5 MLS/HR; Start 08/14/18 at 01:00 Epinephrine 4 mg/ Sodium Chloride 250 ml @ 1.88 mls/hr TITRATE IV Last administered on 08/14/18 04:24; Admin Dose 3.75 MLS/HR; Start 08/14/18 at 03:30 Midazolam HCl 50 ml @ 1 mls/hr TITRATE IV Last administered on 08/15/18 03:49; Admin Dose 8 MLS/HR; Start 08/14/18 at 03:30 Fentanyl 100 ml @ 2.5 mls/hr TITRATE IV Last administered on 08/16/18 02:54; Admin Dose 8 MLS/HR; Start 08/14/18 at 03:30 Clopidogrel Bisulfate (plaVIX) 75 mg DAILY NGT Last administered on 08/16/18 08:43; Admin Dose 75 MG; Start 08/14/18 at 09:00 Amlodipine Besylate (Norvasc) 5 mg DAILY PO Last administered on 08/16/18 10:01; Admin Dose 5 MG; Start 08/16/18 at 09:30 Apixaban (Eliquis) 5 mg BID PO Last administered on 08/16/18 10:04; Admin Dose 5 MG; Start 08/16/18 at 10:00 Carvedilol (Coreg) 12.5 mg BID PO Last administered on 08/16/18 10:05; Admin Dose 12.5 MG; Start 08/16/18 at 10:00 Levalbuterol (Xopenex Neb) 1.25 mg Q6H RESP THERAPY HHN ; Start 08/16/18 at 20:00 Ipratropium [place] (Atrovent Hfa) 4 puff Q6H RESP THERAPY PRN INH SHORTNESS OF BREATH; Start 08/16/18 at 14:30 DARRYL SOOD MD Aug 16, 2018 18:52
[2018-08-16] MEDS: LEVALBUTEROL (NEB) 1.25 MG/0.5 ML AMP HHN SCH (20:08)
[2018-08-16] MEDS ORDERED: IPRATROPIUM (NEB) 0.5 MG/2.5 ML AMP HHN SCH (20:30)
[2018-08-16] MEDS: ATORVASTATIN 40 MG TAB PO SCH (20:35)
[2018-08-17] VITALS (46 sets, daily range): BP systolic 101–153; BP diastolic 37–79; PULSE 66–76; RESP 11–53
[2018-08-17] MEDS: ACCU-CHEK XX SCH ×11 (01:02→10:31)
[2018-08-17] MEDS: HYDROmorphONE 0.5 MG/0.5 ML SYG IV PRN (01:43)
[2018-08-17] MEDS: LEVALBUTEROL (NEB) 1.25 MG/0.5 ML AMP HHN SCH ×4 (01:49→21:16)
[2018-08-17] MEDS: IPRATROPIUM (NEB) 0.5 MG/2.5 ML AMP HHN SCH ×4 (01:49→21:17)
[2018-08-17] MEDS: CLOPIDOGREL 75 MG TAB NGT SCH (08:58)
[2018-08-17] MEDS: FAMOTIDINE 20 MG INJ IV SCH (08:58)
[2018-08-17] MEDS: APIXABAN 5 MG TABLET PO SCH ×2 (09:00→20:39)
[2018-08-17] MEDS: AMLODIPINE 5 MG TAB PO SCH (09:01)
--- NOTE | 2018-08-17 09:52 | PN ---
Date/Time of Note Date/Time of Note DATE: 08/17/18 TIME: 09:50 Assessment/Plan VTE Prophylaxis Risk score (from Ns)>0 risk: 12 SCD applied (from Ns): Yes Pharmacological prophylaxis: LMWH Lines/Catheters IV Catheter Type (from Nrsg): Peripheral IV Urinary Cath still in place: Yes Reason Cath still needed: other (indicate) (obesity) Assessment/Plan Hospital Course Extubated. Productive cough. Afebrile. cr. down to 2.9. NSR. Alert Result Diagram: 08/17/18 0544 08/17/18 0544 Results 24hrs Laboratory Tests Test 08/16/18 10:00 08/16/18 10:25 08/16/18 11:28 08/16/18 12:23 Blood Gas Blood arterial Specimen Source Arterial Blood 08/16/2018 11:27 Date Drawn :27 AM Arterial Blood 7.404 pH (Temp corrected ) Arterial Blood 39.0 pCO2 (Temp correct) Arterial Blood 65.8 L pO2 (Temp corrected ) Arterial Blood 23.8 HCO3 Arterial Blood -0.7 Base Excess Arterial Blood 92.1 L Oxygen Saturati on Rogelio Test N/A Arterial Blood A-Line Gas Puncture Site Arterial 0.3 Blood Carboxyhe moglobin Arterial Blood 0.3 Methemoglobin Blood Gas A-a 138.4 H O2 Differential Oxyhemoglobin 91.5 L Percent Blood Gas 37.0 Temperature Blood Gas 24 Actual Respiration Rat e Blood Gas VENT - CPAP Modality FiO2 35.0 Blood Gas Low 5.0 PEEP Setting Blood Gas 10 Pressure Support Blood Gas [facility] Notified Whom Blood Gas 08/16/2018 11:34 Notified Time :30 AM Bedside Glucose 156 124 127 Test 08/16/18 13:34 08/16/18 14:31 08/16/18 15:37 08/16/18 16:04 Bedside Glucose 135 153 164 Blood Gas Blood Specimen arterial Source Arterial Blood 08/16/2018 4:44 Date Drawn :55 PM Arterial Blood 7.332 L pH (Temp corrected ) Arterial Blood 50.6 H pCO2 (Temp correct) Arterial Blood 82.5 pO2 (Temp corrected ) Arterial Blood 26.2 H HCO3 Arterial Blood -0.2 Base Excess Arterial Blood 94.5 L Oxygen Saturati on Rogelio Test ACCEPTAB Arterial Blood Right Radial Gas Puncture Site Arterial 0.5 Blood Carboxyhe moglobin Arterial Blood 0.3 Methemoglobin Blood Gas A-a 137.3 H O2 Differential Oxyhemoglobin 93.7 Percent Blood Gas 37.0 Temperature Blood Gas NASAL CANNULA Modality FiO2 39.0 Blood Gas MDA Notified Whom Blood Gas 08/16/2018 4:47 Notified Time :41 PM Test 08/16/18 16:46 08/16/18 17:52 08/16/18 18:50 08/16/18 20:07 Bedside Glucose 172 154 156 125 Test 08/16/18 21:07 08/16/18 22:16 08/16/18 22:30 08/16/18 23:13 Bedside Glucose 140 163 147 Blood Gas Blood arterial Specimen Source Arterial Blood 08/16/2018 10:31 Date Drawn :27 PM Arterial Blood 7.352 pH (Temp corrected ) Arterial Blood 54.3 H pCO2 (Temp correct) Arterial Blood 44.6 *L pO2 (Temp corrected ) Arterial Blood 29.4 H HCO3 Arterial Blood 2.9 Base Excess Arterial Blood 79.0 L Oxygen Saturati on Rogelio Test ACCEPTAB Arterial Blood Right Radial Gas Puncture Site Arterial 0.2 Blood Carboxyhe moglobin Arterial Blood 0.3 Methemoglobin Blood Gas A-a 127.3 H O2 Differential Oxyhemoglobin 78.6 L Percent Blood Gas 37.0 Temperature Blood Gas 33 Actual Respiration Rat e Blood Gas NASAL CANNULA Modality FiO2 33.0 Blood Gas D. Cruise RN Critical Value Read Back Blood Gas Scott Torres Notified Whom Blood Gas 08/16/2018 10:43 Notified Time :34 PM Test 08/16/18 23:30 08/16/18 23:56 08/17/18 01:01 08/17/18 01:55 Blood Gas Blood arterial Specimen Source Arterial Blood 08/16/2018 11:21 Date Drawn :53 PM Arterial Blood 7.420 pH (Temp corrected ) Arterial Blood 43.5 pCO2 (Temp correct) Arterial Blood 74.0 L pO2 (Temp corrected ) Arterial Blood 27.6 H HCO3 Arterial Blood 2.8 Base Excess Arterial Blood 94.5 L Oxygen Saturati on Rogelio Test ACCEPTAB Arterial Blood Right Radial Gas Puncture Site Arterial 0.1 Blood Carboxyhe moglobin Arterial Blood 0.2 Methemoglobin Blood Gas A-a 306.0 H O2 Differential Oxyhemoglobin 94.2 Percent Blood Gas 37.0 Temperature Blood Gas 14.0 Respiration Rate Blood Gas 24 Actual Respiration Rat e Blood Gas MASK - BIPAP Modality FiO2 60.0 Blood Gas 15/5 IPAP/EPAP Ratio Blood Gas TERELL ASENCIO Notified Whom Blood Gas 08/16/2018 11:33 Notified Time :33 PM Bedside Glucose 151 148 145 Test 08/17/18 02:59 08/17/18 03:52 08/17/18 05:08 08/17/18 05:30 Bedside Glucose 141 133 150 Lactic Acid 1.2 Level Test 08/17/18 05:44 08/17/18 06:03 08/17/18 06:52 08/17/18 08:03 White Blood 7.6 Count Red Blood Count 3.31 L Hemoglobin 9.7 L Hematocrit 31.0 L Mean 93.7 Corpuscular Volume Mean 29.3 Corpuscular Hemoglobin Mean 31.3 L Corpuscular Hemoglobin Conc ent Red Cell 14.9 H Distribution Width Platelet Count 104 #L Mean Platelet 12.1 H Volume Immature 0.400 Granulocytes % Neutrophils % 71.0 Lymphocytes % 13.7 L Monocytes % 11.5 H Eosinophils % 3.0 Basophils % 0.4 Nucleated Red 0.0 Blood Cells % Immature 0.030 Granulocytes # Neutrophils # 5.4 Lymphocytes # 1.1 Monocytes # 0.9 Eosinophils # 0.2 Basophils # 0.0 Nucleated Red 0.0 Blood Cells # Sodium Level 146 H Potassium Level 4.1 Chloride Level 107 Carbon Dioxide 31 Level Anion Gap 8 Blood Urea 63 H Nitrogen Creatinine 2.92 H Est Glomerular Filtrat Rate mL/min Glucose Level 149 # Calcium Level 9.0 Bedside Glucose 150 148 176 Test 08/17/18 09:03 Bedside Glucose 144 Exam/Review of Systems Exam Vitals Vital Signs Date Temp Pulse Resp B/P (MAP) Pulse Ox O2 O2 Flow FiO2 Time Delivery Rate 08/17/18 67 08:00 08/17/18 97.4 36 115/49 98 Nasal 08:00 (71) Cannula 08/17/18 4.0 07:42 08/17/18 40 05:06 Intake and Output 08/16/18 08/16/18 08/17/18 1515:00 23:00 07:00 IntakeIntake Total 320 ml 294 ml 304 ml OutputOutput Total 1430 ml 1745 ml 620 ml BalanceBalance -1110 ml -1451 ml -316 ml Results Results 24hrs Laboratory Tests Test 08/16/18 10:00 08/16/18 10:25 08/16/18 11:28 08/16/18 12:23 Blood Gas Blood arterial Specimen Source Arterial Blood 08/16/2018 11:27 Date Drawn :27 AM Arterial Blood 7.404 pH (Temp corrected ) Arterial Blood 39.0 pCO2 (Temp correct) Arterial Blood 65.8 L pO2 (Temp corrected ) Arterial Blood 23.8 HCO3 Arterial Blood -0.7 Base Excess Arterial Blood 92.1 L Oxygen Saturati on Rogelio Test N/A Arterial Blood A-Line Gas Puncture Site Arterial 0.3 Blood Carboxyhe moglobin Arterial Blood 0.3 Methemoglobin Blood Gas A-a 138.4 H O2 Differential Oxyhemoglobin 91.5 L Percent Blood Gas 37.0 Temperature Blood Gas 24 Actual Respiration Rat e Blood Gas VENT - CPAP Modality FiO2 35.0 Blood Gas Low 5.0 PEEP Setting Blood Gas 10 Pressure Support Blood Gas MDA Notified Whom Blood Gas 08/16/2018 11:34 Notified Time :30 AM Bedside Glucose 156 124 127 Test 08/16/18 13:34 08/16/18 14:31 08/16/18 15:37 08/16/18 16:04 Bedside Glucose 135 153 164 Blood Gas Blood Specimen arterial Source Arterial Blood 08/16/2018 4:44 Date Drawn :55 PM Arterial Blood 7.332 L pH (Temp corrected ) Arterial Blood 50.6 H pCO2 (Temp correct) Arterial Blood 82.5 pO2 (Temp corrected ) Arterial Blood 26.2 H HCO3 Arterial Blood -0.2 Base Excess Arterial Blood 94.5 L Oxygen Saturati on Rogelio Test ACCEPTAB Arterial Blood Right Radial Gas Puncture Site Arterial 0.5 Blood Carboxyhe moglobin Arterial Blood 0.3 Methemoglobin Blood Gas A-a 137.3 H O2 Differential Oxyhemoglobin 93.7 Percent Blood Gas 37.0 Temperature Blood Gas NASAL CANNULA Modality FiO2 39.0 Blood Gas MDA Notified Whom Blood Gas 08/16/2018 4:47 Notified Time :41 PM Test 08/16/18 16:46 08/16/18 17:52 08/16/18 18:50 08/16/18 20:07 Bedside Glucose 172 154 156 125 Test 08/16/18 21:07 08/16/18 22:16 08/16/18 22:30 08/16/18 23:13 Bedside Glucose 140 163 147 Blood Gas Blood arterial Specimen Source Arterial Blood 08/16/2018 10:31 Date Drawn :27 PM Arterial Blood 7.352 pH (Temp corrected ) Arterial Blood 54.3 H pCO2 (Temp correct) Arterial Blood 44.6 *L pO2 (Temp corrected ) Arterial Blood 29.4 H HCO3 Arterial Blood 2.9 Base Excess Arterial Blood 79.0 L Oxygen Saturati on Rogelio Test ACCEPTAB Arterial Blood Right Radial Gas Puncture Site Arterial 0.2 Blood Carboxyhe moglobin Arterial Blood 0.3 Methemoglobin Blood Gas A-a 127.3 H O2 Differential Oxyhemoglobin 78.6 L Percent Blood Gas 37.0 Temperature Blood Gas 33 Actual Respiration Rat e Blood Gas NASAL CANNULA Modality FiO2 33.0 Blood Gas Sunshine Corona RN Critical Value Read Back Blood Gas Scott Torres Notified Whom Blood Gas 08/16/2018 10:43 Notified Time :34 PM Test 08/16/18 23:30 08/16/18 23:56 08/17/18 01:01 08/17/18 01:55 Blood Gas Blood arterial Specimen Source Arterial Blood 08/16/2018 11:21 Date Drawn :53 PM Arterial Blood 7.420 pH (Temp corrected ) Arterial Blood 43.5 pCO2 (Temp correct) Arterial Blood 74.0 L pO2 (Temp corrected ) Arterial Blood 27.6 H HCO3 Arterial Blood 2.8 Base Excess Arterial Blood 94.5 L Oxygen Saturati on Rogelio Test ACCEPTAB Arterial Blood Right Radial Gas Puncture Site Arterial 0.1 Blood Carboxyhe moglobin Arterial Blood 0.2 Methemoglobin Blood Gas A-a 306.0 H O2 Differential Oxyhemoglobin 94.2 Percent Blood Gas 37.0 Temperature Blood Gas 14.0 Respiration Rate Blood Gas 24 Actual Respiration Rat e Blood Gas MASK - BIPAP Modality FiO2 60.0 Blood Gas 15/5 IPAP/EPAP Ratio Blood Gas TERELL ASENCIO Notified Whom Blood Gas 08/16/2018 11:33 Notified Time :33 PM Bedside Glucose 151 148 145 Test 08/17/18 02:59 08/17/18 03:52 08/17/18 05:08 08/17/18 05:30 Bedside Glucose 141 133 150 Lactic Acid 1.2 Level Test 08/17/18 05:44 08/17/18 06:03 08/17/18 06:52 08/17/18 08:03 White Blood 7.6 Count Red Blood Count 3.31 L Hemoglobin 9.7 L Hematocrit 31.0 L Mean 93.7 Corpuscular Volume Mean 29.3 Corpuscular Hemoglobin Mean 31.3 L Corpuscular Hemoglobin Conc ent Red Cell 14.9 H Distribution Width Platelet Count 104 #L Mean Platelet 12.1 H Volume Immature 0.400 Granulocytes % Neutrophils % 71.0 Lymphocytes % 13.7 L Monocytes % 11.5 H Eosinophils % 3.0 Basophils % 0.4 Nucleated Red 0.0 Blood Cells % Immature 0.030 Granulocytes # Neutrophils # 5.4 Lymphocytes # 1.1 Monocytes # 0.9 Eosinophils # 0.2 Basophils # 0.0 Nucleated Red 0.0 Blood Cells # Sodium Level 146 H Potassium Level 4.1 Chloride Level 107 Carbon Dioxide 31 Level Anion Gap 8 Blood Urea 63 H Nitrogen Creatinine 2.92 H Est Glomerular Filtrat Rate mL/min Glucose Level 149 # Calcium Level 9.0 Bedside Glucose 150 148 176 Test 08/17/18 09:03 Bedside Glucose 144 Medications Medication Current Medications Atorvastatin Calcium (Lipitor) 40 mg HS PO Last administered on 08/16/18at 20:35; Admin Dose 40 MG; Start 08/11/18 at 21:00 Hydralazine HCl (Apresoline) 10 mg Q4H PRN IV SBP >170 Last administered on 08/15/18at 10:52; Admin Dose 10 MG; Start 08/11/18 at 12:00 Diagnostic Test (Pha) (Accu-Chek) 1 ea Q1H XX Last administered on 08/17/18at 09:03; Admin Dose 1 EA; Start 08/13/18 at 17:00 Insulin Human Regular 100 unit/ Sodium Chloride 100 ml @ 0 mls/hr PER PROTOCOL IV Last administered on 08/16/18at 21:37; Admin Dose 3 MLS/HR; Start 08/13/18 at 17:00 Miscellaneous Information (* Miscellaneous Pharmacy Order) Treatment of Hypoglycemia: 1.BG 51... Per protocol XX ; Start 08/13/18 at 15:30 Dextrose (D50w Syringe) 25 ml Q15M PRN IV .DECREASED GLUCOSE; Start 08/13/18 at 15:30 Dextrose (D50w Syringe) 50 ml Q15M PRN IV .DECREASED GLUCOSE; Start 08/13/18 at 15:30 Hydromorphone HCl (Dilaudid) 0.2 mg Q15M PRN IV PAIN LEVEL 1-5 Last administered on 08/17/18at 01:43; Admin Dose 0.2 MG; Start 08/13/18 at 15:30 Hydromorphone HCl (Dilaudid) 0.4 mg Q15M PRN IV PAIN LEVEL 6-10 Last administered on 08/15/18at 12:50; Admin Dose 0.4 MG; Start 08/13/18 at 15:30 Oxycodone/ Acetaminophen (Percocet (5/ 325)) 1 tab Q3H PRN PO PAIN LEVEL 1-5; Start 08/13/18 at 15:30 Ondansetron HCl (Zofran Inj) 4 mg Q6H PRN IV NAUSEA AND/OR VOMITING; Start 08/13/18 at 15:30 Famotidine (Pepcid Iv) 20 mg DAILY IV Last administered on 08/17/18at 08:58; Admin Dose 20 MG; Start 08/13/18 at 20:00 Acetaminophen (Tylenol Tab) 650 mg Q3H PRN PO ELEVATED TEMPERATURE Last administered on 08/16/18at 13:57; Admin Dose 650 MG; Start 08/13/18 at 15:30 Potassium Chloride 50 ml @ 50 mls/hr SEE DIRECTION PRN IVPB K+ LEVEL; Start 08/13/18 at 15:30 Magnesium Sulfate/ Dextrose 100 ml @ 100 mls/hr PRN PRN IVPB PENDING LAB [facility] UE; Start 08/13/18 at 15:30 Nitroglycerin/ Dextrose 250 ml @ 1.5 mls/hr PER PROTOCOL IV Last administered on 08/16/18at 06:14; Admin Dose 1.5 MLS/HR; Start 08/13/18 at 16:00 Dopamine HCl/ Dextrose 250 ml @ 8.61 mls/hr PER PROTOCOL IV Last administered on 08/13/18at 16:05; Admin Dose 12.915 MLS/HR; Start 08/13/18 at 16:00 Albumin Human 250 ml @ 500 mls/hr PRN PRN IV CVP< 8, OR SBP<90 Last admin istered on 08/13/18at 23:45; Admin Dose 500 MLS/HR; Start 08/13/18 at 17:00 Milrinone Lactate 100 ml @ 12.915 mls/ hr TITRATE IV Last administered on 08/14/18 19:17; Admin Dose 1.722 MLS/HR; Start 08/13/18 at 21:30 Phenylephrine HCl 40 mg/Dextrose 250 ml @ 37.5 mls/hr TITRATE IV Last administered on 08/14/18 00:57; Admin Dose 7.5 MLS/HR; Start 08/14/18 at 01:00 Epinephrine 4 mg/ Sodium Chloride 250 ml @ 1.88 mls/hr TITRATE IV Last administered on 08/14/18 04:24; Admin Dose 3.75 MLS/HR; Start 08/14/18 at 03:30 Midazolam HCl 50 ml @ 1 mls/hr TITRATE IV Last administered on 08/15/18 03:49; Admin Dose 8 MLS/HR; Start 08/14/18 at 03:30 Fentanyl 100 ml @ 2.5 mls/hr TITRATE IV Last administered on 08/16/18 02:54; Admin Dose 8 MLS/HR; Start 08/14/18 at 03:30 Clopidogrel Bisulfate (plaVIX) 75 mg DAILY NGT Last administered on 08/17/18 08:58; Admin Dose 75 MG; Start 08/14/18 at 09:00 Amlodipine Besylate (Norvasc) 5 mg DAILY PO Last administered on 08/17/18 09:01; Admin Dose 5 MG; Start 08/16/18 at 09:30 Apixaban (Eliquis) 5 mg BID PO Last administered on 08/17/18 09:00; Admin Dose 5 MG; Start 08/16/18 at 10:00 Carvedilol (Coreg) 12.5 mg BID PO Last administered on 08/17/18 08:59; Admin Dose 12.5 MG; Start 08/16/18 at 10:00 Levalbuterol (Xopenex Neb) 1.25 mg Q6H RESP THERAPY HHN Last administered on 08/17/18 07:37; Admin Dose 1.25 MG; Start 08/16/18 at 20:00 Ipratropium [place] (Atrovent 0.02% (Neb)) 0.5 mg Q6H RESP THERAPY HHN Last administered on 4/28/19at 07:37; Admin Dose 0.5 MG; Start 08/17/18 at 02:00 RADHA MC MD Aug 17, 2018 09:52
--- NOTE | 2018-08-17 10:25 | CONS ---
Assessment/Plan Assessment/Plan Hospital Course (Demo Recall) Acute on chronic diastolic CHF: mild CHF but close to euvolemic on exam with JVP around 8 and CXR much better Acute on chronic renal failure: Cr baseline 1.6. Worse after CABG.Now improving Cardiogenic shock: Transient post op, now off inotropic support and CI 2.6 Acute respiratory failure: s/p extubation 08/16 Anemia: from operative blood loss. Required one unit. No active bleeding s/p CABG x5 08/13/18: WINN to LAD, SVG to ramus sequence to obtuse marginal artery, SVG to PDA, SVG to left ventricular extension branch. Difficult case per Dr. Howell with poor targets. CAD: s/p multiple prior PCIs. Cath 08/11/18 with multivessel disease. s/p CABG above Recent left femoral DVT: on Eliquis as outpt. DM HT HL -lasix 40mg PO daily starting today, monitor for need for spot IV dosing -Eliquis 5mg BID -continue plavix -coreg 12.5mg BID -amlodipine 5mg -lipitor 40mg Consultation Date/Type/Reason Admit Date/Time Aug 11, 2018 at 09:20 Initial Consult Date 08/11/18 Type of Consult Cardiology Requesting Provider: NERIS BROTHERS MD Date/Time of Note DATE: 08/17/18 TIME: 10:20 24 HR Interval Summary Free Text/Dictation Given multiple doses of lasix yesterday with good diuresis. Extubated successfully. Cr better. Still with chest pain at surgical site Exam/Review of Systems Vital Signs Vitals Vital Signs Date Temp Pulse Resp B/P (MAP) Pulse Ox O2 O2 Flow FiO2 Time Delivery Rate 08/17/18 67 08:00 08/17/18 97.4 36 115/49 98 Nasal 08:00 (71) Cannula 08/17/18 4.0 07:42 08/17/18 40 05:06 Intake and Output 08/16/18 08/16/18 08/17/18 1515:00 23:00 07:00 IntakeIntake Total 320 ml 294 ml 304 ml OutputOutput Total 1430 ml 1745 ml 620 ml BalanceBalance -1110 ml -1451 ml -316 ml Exam Constitutional: alert, oriented Psych: nl mood/affect Head: normocephalic, atraumatic Neck: jvd (8cm) Respiratory: diminished breath sounds; No clear to auscultation Cardiovascular: regular rate and rhythm, edema (trace); No systolic murmur Gastrointestinal: soft, non-tender; No distended 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: nl mental status, nl speech Labs Result Diagram: 08/17/18 0544 08/17/18 0544 Results 24hrs Laboratory Tests Test 08/16/18 10:25 08/16/18 11:28 08/16/18 12:23 08/16/18 13:34 Bedside Glucose 156 124 127 135 Test 08/16/18 14:31 08/16/18 15:37 08/16/18 16:04 08/16/18 16:46 Bedside Glucose 153 164 172 Blood Gas Blood arterial Specimen Source Arterial Blood 08/16/2018 4:44: Date Drawn 55 PM Arterial Blood 7.332 L pH (Temp corrected ) Arterial Blood 50.6 H pCO2 (Temp correct) Arterial Blood 82.5 pO2 (Temp corrected ) Arterial Blood 26.2 H HCO3 Arterial Blood -0.2 Base Excess Arterial Blood 94.5 L Oxygen Saturati on Rogelio Test ACCEPTAB Arterial Blood Right Radial Gas Puncture Site Arterial 0.5 Blood Carboxyhe moglobin Arterial Blood 0.3 Methemoglobin Blood Gas A-a 137.3 H O2 Differential Oxyhemoglobin 93.7 Percent Blood Gas 37.0 Temperature Blood Gas NASAL CANNULA Modality FiO2 39.0 Blood Gas MDA Notified Whom Blood Gas 08/16/2018 4:47: Notified Time 41 PM Test 08/16/18 17:52 08/16/18 18:50 08/16/18 20:07 08/16/18 21:07 Bedside Glucose 154 156 125 140 Test 08/16/18 22:16 08/16/18 22:30 08/16/18 23:13 08/16/18 23:30 Bedside Glucose 163 147 Blood Gas Blood arterial Blood Specimen arterial Source Arterial Blood 08/16/2018 10:31 08/16/2018 11:2 Date Drawn :27 PM 1:53 PM Arterial Blood 7.352 7.420 pH (Temp corrected ) Arterial Blood 54.3 H 43.5 pCO2 (Temp correct) Arterial Blood 44.6 *L 74.0 L pO2 (Temp corrected ) Arterial Blood 29.4 H 27.6 H HCO3 Arterial Blood 2.9 2.8 Base Excess Arterial Blood 79.0 L 94.5 L Oxygen Saturati on Rogelio Test ACCEPTAB ACCEPTAB Arterial Blood Right Radial Right Radial Gas Puncture Site Arterial 0.2 0.1 Blood Carboxyhe moglobin Arterial Blood 0.3 0.2 Methemoglobin Blood Gas A-a 127.3 H 306.0 H O2 Differential Oxyhemoglobin 78.6 L 94.2 Percent Blood Gas 37.0 37.0 Temperature Blood Gas 33 24 Actual Respiration Rat e Blood Gas NASAL CANNULA MASK - BIPAP Modality FiO2 33.0 60.0 Blood Gas Sunshine Corona RN Critical Value Read Back Blood Gas L. Brian ASENCIO RCP Notified Whom Blood Gas 08/16/2018 10:43 08/16/2018 11:3 Notified Time :34 PM 3:33 PM Blood Gas 14.0 Respiration Rate Blood Gas 15/5 IPAP/EPAP Ratio Test 08/16/18 23:56 08/17/18 01:01 08/17/18 01:55 08/17/18 02:59 Bedside Glucose 151 148 145 141 Test 08/17/18 03:52 08/17/18 05:08 08/17/18 05:30 08/17/18 05:44 Bedside Glucose 133 150 Lactic Acid 1.2 Level White Blood 7.6 Count Red Blood Count 3.31 L Hemoglobin 9.7 L Hematocrit 31.0 L Mean 93.7 Corpuscular Volume Mean 29.3 Corpuscular Hemoglobin Mean 31.3 L Corpuscular Hemoglobin Conc ent Red Cell 14.9 H Distribution Width Platelet Count 104 #L Mean Platelet 12.1 H Volume Immature 0.400 Granulocytes % Neutrophils % 71.0 Lymphocytes % 13.7 L Monocytes % 11.5 H Eosinophils % 3.0 Basophils % 0.4 Nucleated Red 0.0 Blood Cells % Immature 0.030 Granulocytes # Neutrophils # 5.4 Lymphocytes # 1.1 Monocytes # 0.9 Eosinophils # 0.2 Basophils # 0.0 Nucleated Red 0.0 Blood Cells # Sodium Level 146 H Potassium Level 4.1 Chloride Level 107 Carbon Dioxide 31 Level Anion Gap 8 Blood Urea 63 H Nitrogen Creatinine 2.92 H Est Glomerular Filtrat Rate mL/min Glucose Level 149 # Calcium Level 9.0 Test 08/17/18 06:03 08/17/18 06:52 08/17/18 08:03 08/17/18 09:03 Bedside Glucose 150 148 176 144 Medications Medications Current Medications Atorvastatin Calcium (Lipitor) 40 mg HS PO Last administered on 08/16/18 20:35; Admin Dose 40 MG; Start 08/11/18 at 21:00 Hydralazine HCl (Apresoline) 10 mg Q4H PRN IV SBP >170 Last administered on 08/15/18at 10:52; Admin Dose 10 MG; Start 08/11/18 at 12:00 Diagnostic Test (Pha) (Accu-Chek) 1 ea Q1H XX Last administered on 08/17/18 09:03; Admin Dose 1 EA; Start 08/13/18 at 17:00 Insulin Human Regular 100 unit/ Sodium Chloride 100 ml @ 0 mls/hr PER PROTOCOL IV Last administered on 08/16/18at 21:37; Admin Dose 3 MLS/HR; Start 08/13/18 at 17:00 Miscellaneous Information (* Miscellaneous Pharmacy Order) Treatment of Hypoglycemia: 1.BG 51... Per protocol XX ; Start 08/13/18 at 15:30 Dextrose (D50w Syringe) 25 ml Q15M PRN IV .DECREASED GLUCOSE; Start 08/13/18 at 15:30 Dextrose (D50w Syringe) 50 ml Q15M PRN IV .DECREASED GLUCOSE; Start 08/13/18 at 15:30 Hydromorphone HCl (Dilaudid) 0.2 mg Q15M PRN IV PAIN LEVEL 1-5 Last administe red on 08/17/18at 01:43; Admin Dose 0.2 MG; Start 08/13/18 at 15:30 Hydromorphone HCl (Dilaudid) 0.4 mg Q15M PRN IV PAIN LEVEL 6-10 Last administered on 08/15/18at 12:50; Admin Dose 0.4 MG; Start 08/13/18 at 15:30 Oxycodone/ Acetaminophen (Percocet (5/ 325)) 1 tab Q3H PRN PO PAIN LEVEL 1-5; Start 08/13/18 at 15:30 Ondansetron HCl (Zofran Inj) 4 mg Q6H PRN IV NAUSEA AND/OR VOMITING; Start 08/13/18 at 15:30 Famotidine (Pepcid Iv) 20 mg DAILY IV Last administered on 08/17/18 08:58; Admin Dose 20 MG; Start 08/13/18 at 20:00 Acetaminophen (Tylenol Tab) 650 mg Q3H PRN PO ELEVATED TEMPERATURE Last administered on 08/16/18 13:57; Admin Dose 650 MG; Start 08/13/18 at 15:30 Potassium Chloride 50 ml @ 50 mls/hr SEE DIRECTION PRN IVPB K+ LEVEL; Start 08/13/18 at 15:30 Magnesium Sulfate/ Dextrose 100 ml @ 100 mls/hr PRN PRN IVPB PENDING LAB VALUE; Start 08/13/18 at 15:30 Nitroglycerin/ Dextrose 250 ml @ 1.5 mls/hr PER PROTOCOL IV Last administered on 08/16/18 06:14; Admin Dose 1.5 MLS/HR; Start 08/13/18 at 16:00 Dopamine HCl/ Dextrose 250 ml @ 8.61 mls/hr PER PROTOCOL IV Last administered on 08/13/18 16:05; Admin Dose 12.915 MLS/HR; Start 08/13/18 at 16:00 Albumin Human 250 ml @ 500 mls/hr PRN PRN IV CVP< 8, OR SBP<90 Last administered on 08/13/18 23:45; Admin Dose 500 MLS/HR; Start 08/13/18 at 17:00 Milrinone Lactate 100 ml @ 12.915 mls/ hr TITRATE IV Last administered on 08/14/18 19:17; Admin Dose 1.722 MLS/HR; Start 08/13/18 at 21:30 Phenylephrine HCl 40 mg/Dextrose 250 ml @ 37.5 mls/hr TITRATE IV Last administered on 08/14/18 00:57; Admin Dose 7.5 MLS/HR; Start 08/14/18 at 01:00 Epinephrine 4 mg/ Sodium Chloride 250 ml @ 1.88 mls/hr TITRATE IV Last administered on 08/14/18 04:24; Admin Dose 3.75 MLS/HR; Start 08/14/18 at 03:30 Midazolam HCl 50 ml @ 1 mls/hr TITRATE IV Last administered on 08/15/18 03:49; Admin Dose 8 MLS/HR; Start 08/14/18 at 03:30 Fentanyl 100 ml @ 2.5 mls/hr TITRATE IV Last administered on 08/16/18 02:54; Admin Dose 8 MLS/HR; Start 08/14/18 at 03:30 Clopidogrel Bisulfate (plaVIX) 75 mg DAILY NGT Last administered on 08/17/18 08:58; Admin Dose 75 MG; Start 08/14/18 at 09:00 Amlodipine Besylate (Norvasc) 5 mg DAILY PO Last administered on 08/17/18 09:01; Admin Dose 5 MG; Start 08/16/18 at 09:30 Apixaban (Eliquis) 5 mg BID PO Last administered on 08/17/18 09:00; Admin Dose 5 MG; Start 08/16/18 at 10:00 Carvedilol (Coreg) 12.5 mg BID PO Last administered on 08/17/18 08:59; Admin Dose 12.5 MG; Start 08/16/18 at 10:00 Levalbuterol (Xopenex Neb) 1.25 mg Q6H RESP THERAPY HHN Last administered on 08/17/18 07:37; Admin Dose 1.25 MG; Start 08/16/18 at 20:00 Ipratropium [place] (Atrovent 0.02% (Neb)) 0.5 mg Q6H RESP THERAPY HHN Last administered on 08/17/18 07:37; Admin Dose 0.5 MG; Start 08/17/18 at 02:00 ALONDRA GILBERT Aug 17, 2018 10:25
[2018-08-17] MEDS ORDERED: FUROSEMIDE 40 MG TAB PO SCH (10:30)
[2018-08-17] MEDS ORDERED: FUROSEMIDE 40 MG INJ IV SCH (11:00)
--- NOTE | 2018-08-17 11:03 | CONS ---
Consult Date/Type/Reason Admit Date/Time Aug 11, 2018 at 09:20 Initial Consult Date 08/14/18 Type of Consultation: Pulm/CC Requesting Provider: NERIS BROTHERS MD Date/Time of Note DATE: 08/17/18 TIME: 11:01 Subjective s/p extubation. Doing well. A bit weak. Evidence of JERARDO. Objective Vitals Vital Signs Date Temp Pulse Resp B/P (MAP) Pulse Ox O2 O2 Flow FiO2 Time Delivery Rate 08/17/18 68 53 108/66 95 10:30 (80) 08/17/18 Nasal 10:00 Cannula 08/17/18 97.4 08:00 08/17/18 4.0 07:42 08/17/18 40 05:06 Intake and Output 08/16/18 08/16/18 08/17/18 1515:00 23:00 07:00 IntakeIntake Total 320 ml 294 ml 304 ml OutputOutput Total 1430 ml 1745 ml 620 ml BalanceBalance -1110 ml -1451 ml -316 ml Exam HEENT: Neck supple; no JVD; no LAD; +/- JVD CVS: RRR, S1 and S2, 2/6 CUBA CHEST: Bibasilar rales ABD: Soft, NT, + BS EXT: No c/c/e Results/Medications Result Diagram: 08/17/18 0544 08/17/18 0544 Results 24 hrs Laboratory Tests Test 08/16/18 11:28 08/16/18 12:23 08/16/18 13:34 08/16/18 14:31 Bedside Glucose 124 127 135 153 Test 08/16/18 15:37 08/16/18 16:04 08/16/18 16:46 08/16/18 17:52 Bedside Glucose 164 172 154 Blood Gas Blood arterial Specimen Source Arterial Blood 08/16/2018 4:44: Date Drawn 55 PM Arterial Blood 7.332 L pH (Temp corrected ) Arterial Blood 50.6 H pCO2 (Temp correct) Arterial Blood 82.5 pO2 (Temp corrected ) Arterial Blood 26.2 H HCO3 Arterial Blood -0.2 Base Excess Arterial Blood 94.5 L Oxygen Saturati on Rogelio Test ACCEPTAB Arterial Blood Right Radial Gas Puncture Site Arterial 0.5 Blood Carboxyhe moglobin Arterial Blood 0.3 Methemoglobin Blood Gas A-a 137.3 H O2 Differential Oxyhemoglobin 93.7 Percent Blood Gas 37.0 Temperature Blood Gas NASAL CANNULA Modality FiO2 39.0 Blood Gas MDA Notified Whom Blood Gas 08/16/2018 4:47: Notified Time 41 PM Test 08/16/18 18:50 08/16/18 20:07 08/16/18 21:07 08/16/18 22:16 Bedside Glucose 156 125 140 163 Test 08/16/18 22:30 08/16/18 23:13 08/16/18 23:30 08/16/18 23:56 Blood Gas Blood arterial Blood Specimen arterial Source Arterial Blood 08/16/2018 10:31 08/16/2018 11:2 Date Drawn :27 PM 1:53 PM Arterial Blood 7.352 7.420 pH (Temp corrected ) Arterial Blood 54.3 H 43.5 pCO2 (Temp correct) Arterial Blood 44.6 *L 74.0 L pO2 (Temp corrected ) Arterial Blood 29.4 H 27.6 H HCO3 Arterial Blood 2.9 2.8 Base Excess Arterial Blood 79.0 L 94.5 L Oxygen Saturati on Rogelio Test ACCEPTAB ACCEPTAB Arterial Blood Right Radial Right Radial Gas Puncture Site Arterial 0.2 0.1 Blood Carboxyhe moglobin Arterial Blood 0.3 0.2 Methemoglobin Blood Gas A-a 127.3 H 306.0 H O2 Differential Oxyhemoglobin 78.6 L 94.2 Percent Blood Gas 37.0 37.0 Temperature Blood Gas 33 24 Actual Respiration Rat e Blood Gas NASAL CANNULA MASK - BIPAP Modality FiO2 33.0 60.0 Blood Gas D. Cruise RN Critical Value Read Back Blood Gas Scott ASENCIO RCP Notified Whom Blood Gas 08/16/2018 10:43 08/16/2018 11:3 Notified Time :34 PM 3:33 PM Bedside Glucose 147 151 Blood Gas 14.0 Respiration Rate Blood Gas 15/5 IPAP/EPAP Ratio Test 08/17/18 01:01 08/17/18 01:55 08/17/18 02:59 08/17/18 03:52 Bedside Glucose 148 145 141 133 Test 08/17/18 05:08 08/17/18 05:30 08/17/18 05:44 08/17/18 06:03 Bedside Glucose 150 150 Lactic Acid 1.2 Level White Blood 7.6 Count Red Blood Count 3.31 L Hemoglobin 9.7 L Hematocrit 31.0 L Mean 93.7 Corpuscular Volume Mean 29.3 Corpuscular Hemoglobin Mean 31.3 L Corpuscular Hemoglobin Conc ent Red Cell 14.9 H Distribution Width Platelet Count 104 #L Mean Platelet 12.1 H Volume Immature 0.400 Granulocytes % Neutrophils % 71.0 Lymphocytes % 13.7 L Monocytes % 11.5 H Eosinophils % 3.0 Basophils % 0.4 Nucleated Red 0.0 Blood Cells % Immature 0.030 Granulocytes # Neutrophils # 5.4 Lymphocytes # 1.1 Monocytes # 0.9 Eosinophils # 0.2 Basophils # 0.0 Nucleated Red 0.0 Blood Cells # Sodium Level 146 H Potassium Level 4.1 Chloride Level 107 Carbon Dioxide 31 Level Anion Gap 8 Blood Urea 63 H Nitrogen Creatinine 2.92 H Est Glomerular Filtrat Rate mL/min Glucose Level 149 # Calcium Level 9.0 Test 08/17/18 06:52 08/17/18 08:03 08/17/18 09:03 08/17/18 10:23 Bedside Glucose 148 176 144 158 Home Meds Reported Medications Insulin Aspart* (Novolog Insulin Pen*) 100 Unit/Ml Soln, 0 SC .SLIDING SCALE AC, EA AC MEALS 08/11/18 Insulin Detemir (Levemir Flextouch) 100 Unit/1 Ml Insuln.pen, 25 UNIT SQ QHS, EA 08/11/18 Potassium Chloride* (K-Dur*) 10 Meq Tab.prt.sr, 10 MEQ PO DAILY, TAB 08/11/18 Furosemide* (Furosemide*) 40 Mg Tablet, 40 MG PO DAILY, TAB 08/11/18 Aspirin (Low Dose Aspirin) 81 Mg Tablet.dr, 81 MG PO DAILY, #30 TAB 08/11/18 Apixaban* (Eliquis*) 5 Mg Tablet, 5 MG PO BID, TAB 08/11/18 Clonidine Hcl* (Clonidine Hcl*) 0.1 Mg Tab, 0.1 MG PO DAILY PRN for ELEVATED BLOOD PRESSURE, TAB 08/11/18 Carvedilol* (Coreg CR*) 40 Mg Capsr, 40 MG PO DAILY, #30 CAP 08/11/18 Rosuvastatin Calcium* (Crestor*) 40 Mg Tablet, 40 MG PO QHS, #30 TAB 08/11/18 Amlodipine Besylate* (Norvasc*) 5 Mg Tablet, 5 MG PO DAILY, TAB 08/11/18 Discontinued Reported Medications Carvedilol* (Coreg CR*) 80 Mg Cpmp.24hr, 80 MG PO HS 07/20/11 Clonidine Hcl* (Clonidine Hcl*) 0.2 Mg Tablet, 0.2 MG PO BID PRN 07/20/11 Insulin Aspart* (Novolog Insulin Vial*) 100 U/Ml Vial 10/14/10 Insulin Detemir* (Levemir*) 100 U/Ml Vial 10/14/10 Prasugrel Hydrochloride* (Effient*) 10 Mg Tablet 10/14/10 Pantoprazole* (Protonix*) 40 Mg Tablet. 10/14/10 Ramipril (Altace) 10 Mg Tablet 11/21/09 Medications Current Medications Atorvastatin Calcium (Lipitor) 40 mg HS PO Last administered on 08/16/18at 20:35; Admin Dose 40 MG; Start 08/11/18 at 21:00 Hydralazine HCl (Apresoline) 10 mg Q4H PRN IV SBP >170 Last administered on 08/15/18at 10:52; Admin Dose 10 MG; Start 08/11/18 at 12:00 Diagnostic Test (Pha) (Accu-Chek) 1 ea Q1H XX Last administered on 08/17/18at 10:31; Admin Dose 1 EA; Start 08/13/18 at 17:00 Insulin Human Regular 100 unit/ Sodium Chloride 100 ml @ 0 mls/hr PER PROTOCOL IV Last administered on 08/16/18at 21:37; Admin Dose 3 MLS/HR; Start 08/13/18 at 17:00 Miscellaneous Information (* Miscellaneous Pharmacy Order) Treatment of Hypoglycemia: 1.BG 51... Per protocol XX ; Start 08/13/18 at 15:30 Dextrose (D50w Syringe) 25 ml Q15M PRN IV .DECREASED GLUCOSE; Start 08/13/18 at 15:30 Dextrose (D50w Syringe) 50 ml Q15M PRN IV .DECREASED GLUCOSE; Start 08/13/18 at 15:30 Hydromorphone HCl (Dilaudid) 0.2 mg Q15M PRN IV PAIN LEVEL 1-5 Last administered on 08/17/18at 01:43; Admin Dose 0.2 MG; Start 08/13/18 at 15:30 Hydromorphone HCl (Dilaudid) 0.4 mg Q15M PRN IV PAIN LEVEL 6-10 Last administered on 08/15/18at 12:50; Admin Dose 0.4 MG; Start 08/13/18 at 15:30 Oxycodone/ Acetaminophen (Percocet (5/ 325)) 1 tab Q3H PRN PO PAIN LEVEL 1-5; Start 08/13/18 at 15:30 Ondansetron HCl (Zofran Inj) 4 mg Q6H PRN IV NAUSEA AND/OR VOMITING; Start 08/13/18 at 15:30 Famotidine (Pepcid Iv) 20 mg DAILY IV Last administered on 08/17/18at 08:58; Admin Dose 20 MG; Start 08/13/18 at 20:00 Acetaminophen (Tylenol Tab) 650 mg Q3H PRN PO ELEVATED TEMPERATURE Last administered on 08/16/18at 13:57; Admin Dose 650 MG; Start 08/13/18 at 15:30 Potassium Chloride 50 ml @ 50 mls/hr SEE DIRECTION PRN IVPB K+ LEVEL; Start 08/13/18 at 15:30 Magnesium Sulfate/ Dextrose 100 ml @ 100 mls/hr PRN PRN IVPB PENDING LAB VALUE; Start 08/13/18 at 15:30 Nitroglycerin/ Dextrose 250 ml @ 1.5 mls/hr PER PROTOCOL IV Last administered on 08/16/18at 06:14; Admin Dose 1.5 MLS/HR; Start 08/13/18 at 16:00 Dopamine HCl/ Dextrose 250 ml @ 8.61 mls/hr PER PROTOCOL IV Last administered on 08/13/18at 16:05; Admin Dose 12.915 MLS/HR; Start 08/13/18 at 16:00 Albumin Human 250 ml @ 500 mls/hr PRN PRN IV CVP< 8, OR SBP<90 Last administered on 08/13/18at 23:45; Admin Dose 500 MLS/HR; Start 08/13/18 at 17:00 Milrinone Lactate 100 ml @ 12.915 mls/ hr TITRATE IV Last administered on 08/14/18at 19:17; Admin Dose 1.722 MLS/HR; Start 08/13/18 at 21:30 Phenylephrine HCl 40 mg/Dextrose 250 ml @ 37.5 mls/hr TITRATE IV Last administered on 08/14/18 00:57; Admin Dose 7.5 MLS/HR; Start 08/14/18 at 01:00 Epinephrine 4 mg/ Sodium Chloride 250 ml @ 1.88 mls/hr TITRATE IV Last administered on 08/14/18 04:24; Admin Dose 3.75 MLS/HR; Start 08/14/18 at 03:30 Midazolam HCl 50 ml @ 1 mls/hr TITRATE IV Last administered on 08/15/18 03:49; Admin Dose 8 MLS/HR; Start 08/14/18 at 03:30 Fentanyl 100 ml @ 2.5 mls/hr TITRATE IV Last administered on 08/16/18 02:54; Admin Dose 8 MLS/HR; Start 08/14/18 at 03:30 Clopidogrel Bisulfate (plaVIX) 75 mg DAILY NGT Last administered on 08/17/18 08:58; Admin Dose 75 MG; Start 08/14/18 at 09:00 Amlodipine Besylate (Norvasc) 5 mg DAILY PO Last administered on 08/17/18 09:01; Admin Dose 5 MG; Start 08/16/18 at 09:30 Apixaban (Eliquis) 5 mg BID PO Last administered on 08/17/18 09:00; Admin Dose 5 MG; Start 08/16/18 at 10:00 Carvedilol (Coreg) 12.5 mg BID PO Last administered on 08/17/18 08:59; Admin Dose 12.5 MG; Start 08/16/18 at 10:00 Levalbuterol (Xopenex Neb) 1.25 mg Q6H RESP THERAPY HHN Last administered on 08/17/18 07:37; Admin Dose 1.25 MG; Start 08/16/18 at 20:00 Ipratropium [place] (Atrovent 0.02% (Neb)) 0.5 mg Q6H RESP THERAPY HHN Last administered on 08/17/18 07:37; Admin Dose 0.5 MG; Start 08/17/18 at 02:00 Furosemide (Lasix) 40 mg DAILY PO ; Start 08/17/18 at 10:30 Assessment/Plan Assessment/Plan (Daily) IMP: 1. s/p CABG--POD#3. 2. Vent Dependence post-op--extubated 3. SOCORRO--improving with diuresis 4. HTN 5. HLD 6. COPD 7. DM 8. Thrombocytopenia RECS: 1. Change lasix 40 mg PO to IV 2. Nocturnal CPAP 3. Follow renal function and UO closely 4. Lower FiO2 as tolerated to maintain SpO2 88-92% 5. Follow platelets 6. DVT and GI prophylaxis 7. Outpatient PSG 40 min cc time PETRA LESLIE MD Aug 17, 2018 11:03
--- NOTE | 2018-08-17 11:20 | PN ---
Date/Time of Note Date/Time of Note DATE: 08/17/18 TIME: 11:08 Assessment/Plan VTE Prophylaxis Risk score (from Nsg)>0 risk: 12 SCD applied (from Ns): Yes Pharmacological prophylaxis: LMWH Lines/Catheters IV Catheter Type (from Nrs): Peripheral IV Central line still needed: No Urinary Cath still in place: Yes Reason Cath still needed: urinary retention Assessment/Plan Assessment/Plan 1. Ischemic heart disease angina three-vessel coronary a. disease.s/p CABG x5 08/13/18: WINN to LAD, SVG to ramus sequence to obtuse marginal artery, SVG to PDA, SVG to left ventricular extension branch. Difficult case per Dr. Howell with poor targets.Vein harvesting and epiaortic scanning of the ascending aorta.CAD: s/p multiple prior PCIs. Cath 08/11/18 with multivessel disease. 2. Hypertension with congestive heart failure diastolic- improved. Now euvolemic. 3. Diabetes mellitus type 2 blood sugar better controlled. On Iv insulin. 4. History of cholecystitis and pancreatitis 5. Acute on chronic kidney disease with baseline creatinine being 1.6 up to 3.5 came down to 2.95 now. Improved after hydration,now mildly dehydrated 6. Dyslipidemia better controlled 7. History of nasal bleeding recurrent- stable. 8. Morbid obesity with snoring and apnea and daytime sleepiness 9. BPH with nocturia 10. Low back pain with radiculopathy 11. 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 Status post cataract ectomy 13. Diabetic nephropathy retinopathy and angiopathy and neuropathy. 14. Constipation- improved. 15. Grief reaction after the of her 16. Gastroesophageal reflux disease 17. Deep venous thrombosis of the left saphenous vein, 2-3 months ago;was on Eliquis 5 mg twice daily, stopped: since 08/11/2018. 18. Gastritis 19. COPD. Quit smoking 10years ago.Successfully extubated with 02sat now 95% with persistent cough. 20. History of nephrolithiasis. 21. Drop of hematocrit; s/p 2 units of prbc tx. stable. 22. Drop of albumone and total protein and mild elevation of lft's. Result Diagram: 08/17/18 0544 08/17/18 0544 Results 24hrs Laboratory Tests Test 08/16/18 11:28 08/16/18 12:23 08/16/18 13:34 08/16/18 14:31 Bedside Glucose 124 127 135 153 Test 08/16/18 15:37 08/16/18 16:04 08/16/18 16:46 08/16/18 17:52 Bedside Glucose 164 172 154 Blood Gas Blood arterial Specimen Source Arterial Blood 08/16/2018 4:44: Date Drawn 55 PM Arterial Blood 7.332 L pH (Temp corrected ) Arterial Blood 50.6 H pCO2 (Temp correct) Arterial Blood 82.5 pO2 (Temp corrected ) Arterial Blood 26.2 H HCO3 Arterial Blood -0.2 Base Excess Arterial Blood 94.5 L Oxygen Saturati on Rogelio Test ACCEPTAB Arterial Blood Right Radial Gas Puncture Site Arterial 0.5 Blood Carboxyhe moglobin Arterial Blood 0.3 Methemoglobin Blood Gas A-a 137.3 H O2 Differential Oxyhemoglobin 93.7 Percent Blood Gas 37.0 Temperature Blood Gas NASAL CANNULA Modality FiO2 39.0 Blood Gas MDA Notified Whom Blood Gas 08/16/2018 4:47: Notified Time 41 PM Test 08/16/18 18:50 08/16/18 20:07 08/16/18 21:07 08/16/18 22:16 Bedside Glucose 156 125 140 163 Test 08/16/18 22:30 08/16/18 23:13 08/16/18 23:30 08/16/18 23:56 Blood Gas Blood arterial Blood Specimen arterial Source Arterial Blood 08/16/2018 10:31 08/16/2018 11:2 Date Drawn :27 PM 1:53 PM Arterial Blood 7.352 7.420 pH (Temp corrected ) Arterial Blood 54.3 H 43.5 pCO2 (Temp correct) Arterial Blood 44.6 *L 74.0 L pO2 (Temp corrected ) Arterial Blood 29.4 H 27.6 H HCO3 Arterial Blood 2.9 2.8 Base Excess Arterial Blood 79.0 L 94.5 L Oxygen Saturati on Rogelio Test ACCEPTAB ACCEPTAB Arterial Blood Right Radial Right Radial Gas Puncture Site Arterial 0.2 0.1 Blood Carboxyhe moglobin Arterial Blood 0.3 0.2 Methemoglobin Blood Gas A-a 127.3 H 306.0 H O2 Differential Oxyhemoglobin 78.6 L 94.2 Percent Blood Gas 37.0 37.0 Temperature Blood Gas 33 24 Actual Respiration Rat e Blood Gas NASAL CANNULA MASK - BIPAP Modality FiO2 33.0 60.0 Blood Gas Sunshine Corona RN Critical Value Read Back Blood Gas GustavoVincent Brian ASENCIO RCP Notified Whom Blood Gas 08/16/2018 10:43 08/16/2018 11:3 Notified Time :34 PM 3:33 PM Bedside Glucose 147 151 Blood Gas 14.0 Respiration Rate Blood Gas 15/5 IPAP/EPAP Ratio Test 08/17/18 01:01 08/17/18 01:55 08/17/18 02:59 08/17/18 03:52 Bedside Glucose 148 145 141 133 Test 08/17/18 05:08 08/17/18 05:30 08/17/18 05:44 08/17/18 06:03 Bedside Glucose 150 150 Lactic Acid 1.2 Level White Blood 7.6 Count Red Blood Count 3.31 L Hemoglobin 9.7 L Hematocrit 31.0 L Mean 93.7 Corpuscular Volume Mean 29.3 Corpuscular Hemoglobin Mean 31.3 L Corpuscular Hemoglobin Conc ent Red Cell 14.9 H Distribution Width Platelet Count 104 #L Mean Platelet 12.1 H Volume Immature 0.400 Granulocytes % Neutrophils % 71.0 Lymphocytes % 13.7 L Monocytes % 11.5 H Eosinophils % 3.0 Basophils % 0.4 Nucleated Red 0.0 Blood Cells % Immature 0.030 Granulocytes # Neutrophils # 5.4 Lymphocytes # 1.1 Monocytes # 0.9 Eosinophils # 0.2 Basophils # 0.0 Nucleated Red 0.0 Blood Cells # Sodium Level 146 H Potassium Level 4.1 Chloride Level 107 Carbon Dioxide 31 Level Anion Gap 8 Blood Urea 63 H Nitrogen Creatinine 2.92 H Est Glomerular Filtrat Rate mL/min Glucose Level 149 # Calcium Level 9.0 Test 08/17/18 06:52 08/17/18 08:03 08/17/18 09:03 08/17/18 10:23 Bedside Glucose 148 176 144 158 Subjective 24 Hr Interval Summary Free Text/Dictation cough. Subjective hx not possible: pt critical Constitutional: diaphoresis, disoriented, poor po, requiring O2; No no complaints, No improved, No chills, No febrile, No requiring IVF, No other Eyes: No no complaints, No pain, No discharge, No redness, No visual change, No other ENT: congestion, discharge, dysphagia, sore throat; No no complaints, No bleeding, No pain, No other Respiratory: cough, pleuritic pain, shortness of breath; No no complaints, No pain, No sputum, No wheezing, No other Cardiovascular: edema, lightheadedness, orthopenea; No no complaints, No chest pain, No palpitations, No paroxysmal nocturnal dyspnea, No other Gastrointestinal: constipation, decreased appetite, nausea, passing stool; No no complaints, No pain, No blood, No diarrhea, No flatus, No vomiting, No other Genitourinary: dysuria, discharge; No no complaints, No bleeding, No flank pain, No hematuria, No other Musculoskeletal: back pain, bone/joint pain, neck pain; No no complaints, No restricted range of motion, No swelling, No other Skin: laceration, pruritis; No no complaints, No bruising, No erythema, No rash, No skin lesions, No other Neurologic: confusion, headache, syncope; No no complaints, No dizziness, No focal-weakness, No seizure, No other Endocrine: polydypsia, dry skin; No no complaints, No polyuria, No temp intolerance, No other Lymphatic: No no complaints, No adenopathy, No tender nodes, No lymphadema, No other Psychological: anxiety, confusion, depression; No no complaints, No nl mood/affect, No suicidal, No other Immunologic: No no complaints, No immunodeficiency, No pruritis, No rhinitis, No urticaria, No other Exam/Review of Systems Exam Vitals Vital Signs Date Temp Pulse Resp B/P (MAP) Pulse Ox O2 O2 Flow FiO2 Time Delivery Rate 08/17/18 68 53 108/66 95 10:30 (80) 08/17/18 Nasal 10:00 Cannula 08/17/18 97.4 08:00 08/17/18 4.0 07:42 08/17/18 40 05:06 Intake and Output 08/16/18 08/16/18 08/17/18 1515:00 23:00 07:00 IntakeIntake Total 320 ml 294 ml 304 ml OutputOutput Total 1430 ml 1745 ml 620 ml BalanceBalance -1110 ml -1451 ml -316 ml Constitutional: alert, well developed, frail, obese; No oriented, No non-verbal, No distress, No other Psych: anxiety, confusion, depression; No no complaints, No nl mood/affect, No suicidal, No other Head: normocephalic, atraumatic; No lacerations, No hematomas, No other Eyes: EOMI, nl lids, PERRL; No nl conjunctiva, No nl sclera, No icteric, No fundi, disc, No other ENMT: nl nasal mucosa & septum, tympanic membranes; No nl external ears & nose, No nl lips & teeth, No mucosa pink and moist, No intubated, No other Neck: jvd, bruits, nuchal rigidity; No supple, No non-tender, No masses, No thyromegaly, No other Respiratory: clear to auscultation, congested cough, diminished breath sounds, labored breathing; No normal air movement, No crackles/rales, No intercostal retraction, No respirations, No tactile fremitus, No wheezing, No other Cardiovascular: regular rate and rhythm, nl pulses, diastolic murmur, irregular rhythm, jugular venous distention (JVD), systolic murmur, other (s/p left ct removal. Mildline wound is healing well.) Gastrointestinal: soft, nl liver, spleen, bowel sounds, distended, rebound or guarding; No non-tender, No ascites, No firm, No hepatomegaly, No mass, No splenomegaly, No surgical scars, No tender, No other Genitourinary - Male: nl penis, nl scrotum Musculoskeletal: joint tenderness, muscle tone, muscle weakness Extremities: No normal pulses, No calf tenderness, No cyanosis, No clubbing, No edema, No pitting pedal edema, No palpable cord, No tenderness, No other 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: MULTIPLEX OPERATOR II-XII intact, nl speech (decreased voice.), nl strength; No nl mental status, No confused, No DTR's symmetric, No focal weakness, No lethargic, No numbness, No reflexes, No unresponsive, No other Skin: nl turgor, rash or lesions; No diaphoresis, No ecchymosis, No laceration, No puncture, No other Lymph: No nl lymph nodes, No enlarged, No nontender, No other Results Results 24hrs Laboratory Tests Test 08/16/18 11:28 08/16/18 12:23 08/16/18 13:34 08/16/18 14:31 Bedside Glucose 124 127 135 153 Test 08/16/18 15:37 08/16/18 16:04 08/16/18 16:46 08/16/18 17:52 Bedside Glucose 164 172 154 Blood Gas Blood arterial Specimen Source Arterial Blood 08/16/2018 4:44: Date Drawn 55 PM Arterial Blood 7.332 L pH (Temp corrected ) Arterial Blood 50.6 H pCO2 (Temp correct) Arterial Blood 82.5 pO2 (Temp corrected ) Arterial Blood 26.2 H HCO3 Arterial Blood -0.2 Base Excess Arterial Blood 94.5 L Oxygen Saturati on Rogelio Test ACCEPTAB Arterial Blood Right Radial Gas Puncture Site Arterial 0.5 Blood Carboxyhe moglobin Arterial Blood 0.3 Methemoglobin Blood Gas A-a 137.3 H O2 Differential Oxyhemoglobin 93.7 Percent Blood Gas 37.0 Temperature Blood Gas NASAL CANNULA Modality FiO2 39.0 Blood Gas MDA Notified Whom Blood Gas 08/16/2018 4:47: Notified Time 41 PM Test 08/16/18 18:50 08/16/18 20:07 08/16/18 21:07 08/16/18 22:16 Bedside Glucose 156 125 140 163 Test 08/16/18 22:30 08/16/18 23:13 08/16/18 23:30 08/16/18 23:56 Blood Gas Blood arterial Blood Specimen arterial Source Arterial Blood 08/16/2018 10:31 08/16/2018 11:2 Date Drawn :27 PM 1:53 PM Arterial Blood 7.352 7.420 pH (Temp corrected ) Arterial Blood 54.3 H 43.5 pCO2 (Temp correct) Arterial Blood 44.6 *L 74.0 L pO2 (Temp corrected ) Arterial Blood 29.4 H 27.6 H HCO3 Arterial Blood 2.9 2.8 Base Excess Arterial Blood 79.0 L 94.5 L Oxygen Saturati on Rogelio Test ACCEPTAB ACCEPTAB Arterial Blood Right Radial Right Radial Gas Puncture Site Arterial 0.2 0.1 Blood Carboxyhe moglobin Arterial Blood 0.3 0.2 Methemoglobin Blood Gas A-a 127.3 H 306.0 H O2 Differential Oxyhemoglobin 78.6 L 94.2 Percent Blood Gas 37.0 37.0 Temperature Blood Gas 33 24 Actual Respiration Rat e Blood Gas NASAL CANNULA MASK - BIPAP Modality FiO2 33.0 60.0 Blood Gas D. Cruise RN Critical Value Read Back Blood Gas L. Torres W.TORRES,[employer]BER[employer] SECRETARY Notified Whom Blood Gas 08/16/2018 10:43 08/16/2018 11:3 Notified Time :34 PM 3:33 PM Bedside Glucose 147 151 Blood Gas 14.0 Respiration Rate Blood Gas 15/5 IPAP/EPAP Ratio Test 08/17/18 01:01 08/17/18 01:55 08/17/18 02:59 08/17/18 03:52 Bedside Glucose 148 145 141 133 Test 08/17/18 05:08 08/17/18 05:30 08/17/18 05:44 08/17/18 06:03 Bedside Glucose 150 150 Lactic Acid 1.2 Level White Blood 7.6 Count Red Blood Count 3.31 L Hemoglobin 9.7 L Hematocrit 31.0 L Mean 93.7 Corpuscular Volume Mean 29.3 Corpuscular Hemoglobin Mean 31.3 L Corpuscular Hemoglobin Conc ent Red Cell 14.9 H Distribution Width Platelet Count 104 #L Mean Platelet 12.1 H Volume Immature 0.400 Granulocytes % Neutrophils % 71.0 Lymphocytes % 13.7 L Monocytes % 11.5 H Eosinophils % 3.0 Basophils % 0.4 Nucleated Red 0.0 Blood Cells % Immature 0.030 Granulocytes # Neutrophils # 5.4 Lymphocytes # 1.1 Monocytes # 0.9 Eosinophils # 0.2 Basophils # 0.0 Nucleated Red 0.0 Blood Cells # Sodium Level 146 H Potassium Level 4.1 Chloride Level 107 Carbon Dioxide 31 Level Anion Gap 8 Blood Urea 63 H Nitrogen Creatinine 2.92 H Est Glomerular Filtrat Rate mL/min Glucose Level 149 # Calcium Level 9.0 Test 08/17/18 06:52 08/17/18 08:03 08/17/18 09:03 08/17/18 10:23 Bedside Glucose 148 176 144 158 Medications Medication Current Medications Atorvastatin Calcium (Lipitor) 40 mg HS PO Last administered on 08/16/18at 20:35; Admin Dose 40 MG; Start 08/11/18 at 21:00 Hydralazine HCl (Apresoline) 10 mg Q4H PRN IV SBP >170 Last administered on 08/15/18at 10:52; Admin Dose 10 MG; Start 08/11/18 at 12:00 Diagnostic Test (Pha) (Accu-Chek) 1 ea Q1H XX Last administered on 08/17/18at 10 :31; Admin Dose 1 EA; Start 08/13/18 at 17:00 Insulin Human Regular 100 unit/ Sodium Chloride 100 ml @ 0 mls/hr PER PROTOCOL IV Last administered on 08/16/18at 21:37; Admin Dose 3 MLS/HR; Start 08/13/18 at 17:00 Miscellaneous Information (* Miscellaneous Pharmacy Order) Treatment of Hypoglycemia: 1.BG 51... Per protocol XX ; Start 08/13/18 at 15:30 Dextrose (D50w Syringe) 25 ml Q15M PRN IV .DECREASED GLUCOSE; Start 08/13/18 at 15:30 Dextrose (D50w Syringe) 50 ml Q15M PRN IV .DECREASED GLUCOSE; Start 08/13/18 at 15:30 Hydromorphone HCl (Dilaudid) 0.2 mg Q15M PRN IV PAIN LEVEL 1-5 Last admini stered on 08/17/18at 01:43; Admin Dose 0.2 MG; Start 08/13/18 at 15:30 Hydromorphone HCl (Dilaudid) 0.4 mg Q15M PRN IV PAIN LEVEL 6-10 Last administered on 08/15/18at 12:50; Admin Dose 0.4 MG; Start 08/13/18 at 15:30 Oxycodone/ Acetaminophen (Percocet (5/ 325)) 1 tab Q3H PRN PO PAIN LEVEL 1-5; Start 08/13/18 at 15:30 Ondansetron HCl (Zofran Inj) 4 mg Q6H PRN IV NAUSEA AND/OR VOMITING; Start 08/13/18 at 15:30 Famotidine (Pepcid Iv) 20 mg DAILY IV Last administered on 08/17/18at 08:58; Admin Dose 20 MG; Start 08/13/18 at 20:00 Acetaminophen (Tylenol Tab) 650 mg Q3H PRN PO ELEVATED TEMPERATURE Last administered on 08/16/18at 13:57; Admin Dose 650 MG; Start 08/13/18 at 15:30 Potassium Chloride 50 ml @ 50 mls/hr SEE DIRECTION PRN IVPB K+ LEVEL; Start 08/13/18 at 15:30 Magnesium Sulfate/ Dextrose 100 ml @ 100 mls/hr PRN PRN IVPB PENDING LAB VALUE; Start 08/13/18 at 15:30 Nitroglycerin/ Dextrose 250 ml @ 1.5 mls/hr PER PROTOCOL IV Last administered on 08/16/18 06:14; Admin Dose 1.5 MLS/HR; Start 08/13/18 at 16:00 Dopamine HCl/ Dextrose 250 ml @ 8.61 mls/hr PER PROTOCOL IV Last administered on 08/13/18 16:05; Admin Dose 12.915 MLS/HR; Start 08/13/18 at 16:00 Albumin Human 250 ml @ 500 mls/hr PRN PRN IV CVP< 8, OR SBP<90 Last administered on 08/13/18 23:45; Admin Dose 500 MLS/HR; Start 08/13/18 at 17:00 Milrinone Lactate 100 ml @ 12.915 mls/ hr TITRATE IV Last administered on 08/14/18 19:17; Admin Dose 1.722 MLS/HR; Start 08/13/18 at 21:30 Phenylephrine HCl 40 mg/Dextrose 250 ml @ 37.5 mls/hr TITRATE IV Last administered on 08/14/18 00:57; Admin Dose 7.5 MLS/HR; Start 08/14/18 at 01:00 Epinephrine 4 mg/ Sodium Chloride 250 ml @ 1.88 mls/hr TITRATE IV Last admin istered on 08/14/18 04:24; Admin Dose 3.75 MLS/HR; Start 08/14/18 at 03:30 Midazolam HCl 50 ml @ 1 mls/hr TITRATE IV Last administered on 08/15/18 03:49; Admin Dose 8 MLS/HR; Start 08/14/18 at 03:30 Fentanyl 100 ml @ 2.5 mls/hr TITRATE IV Last administered on 08/16/18 02:54; Admin Dose 8 MLS/HR; Start 08/14/18 at 03:30 Clopidogrel Bisulfate (plaVIX) 75 mg DAILY NGT Last administered on 08/17/18 08:58; Admin Dose 75 MG; Start 08/14/18 at 09:00 Amlodipine Besylate (Norvasc) 5 mg DAILY PO Last administered on 08/17/18 09:01; Admin Dose 5 MG; Start 08/16/18 at 09:30 Apixaban (Eliquis) 5 mg BID PO Last administered on 08/17/18 09:00; Admin Dose 5 MG; Start 08/16/18 at 10:00 Carvedilol (Coreg) 12.5 mg BID PO Last administered on 08/17/18at 08:59; Admin Dose 12.5 MG; Start 08/16/18 at 10:00 Levalbuterol (Xopenex Neb) 1.25 mg Q6H RESP THERAPY HHN Last administered on 08/17/18at 07:37; Admin Dose 1.25 MG; Start 08/16/18 at 20:00 Ipratropium [place] (Atrovent 0.02% (Neb)) 0.5 mg Q6H RESP THERAPY HHN Last administered on 08/17/18at 07:37; Admin Dose 0.5 MG; Start 08/17/18 at 02:00 Furosemide (Lasix) 40 mg DAILY IV ; Start 08/17/18 at 11:00 NERIS BROTHERS MD Aug 17, 2018 11:18
--- NOTE | 2018-08-17 12:25 | CONS ---
Assessment/Plan Assessment/Plan Assessment/Plan (Daily) 1. acute kidney injury vs possible baseline CKD II due to ishcemic ATN + Hemodynamics 2. 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 H/o HTN 4. H/o HL 5. H/o DM II 6. H/o CAD with previous stent placement Plan: s/p extubation , doing well, Lasix 40mg IV x 1 given in AM will give another Lasix 20mg iV x 1 at 6 pm Monitor urine output BP stable will follow up Consultation Date/Type/Reason Admit Date/Time Aug 11, 2018 at 09:20 Initial Consult Date 08/11/18 Type of Consult NEPHROLOGY Requesting Provider: NERIS BROTHERS MD Date/Time of Note DATE: 08/17/18 TIME: 12:24 24 HR Interval Summary Free Text/Dictation s/p Lasix 110mg Yesterday , BP stable, afebrile, s/p extubation Exam/Review of Systems Exam Vitals Vital Signs Date Temp Pulse Resp B/P (MAP) Pulse Ox O2 O2 Flow FiO2 Time Delivery Rate 08/17/18 68 53 108/66 95 10:30 (80) 08/17/18 Nasal 10:00 Cannula 08/17/18 97.4 08:00 08/17/18 4.0 07:42 08/17/18 40 05:06 Intake and Output 08/16/18 08/16/18 08/17/18 1515:00 23:00 07:00 IntakeIntake Total 320 ml 294 ml 304 ml OutputOutput Total 1430 ml 1745 ml 620 ml BalanceBalance -1110 ml -1451 ml -316 ml Exam Constitutional: alert, awake no acute distress Respiratory: clear to auscultation, normal air movement, diminished breath sounds Cardiovascular: regular rate and rhythm, nl pulses, + midline Chest scar healthy Gastrointestinal: soft, non-tender Musculoskeletal: nl extremities to inspection Extremities: normal pulses , Dressign in place, + mancia catheter in place 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, nl mental status, nl speech, nl strength Results Result Diagram: 08/17/18 0544 08/17/18 0544 Results 24hrs Laboratory Tests Test 08/16/18 13:34 08/16/18 14:31 08/16/18 15:37 08/16/18 16:04 Bedside Glucose 135 153 164 Blood Gas Blood Specimen arterial Source Arterial Blood 08/16/2018 4:44 Date Drawn :55 PM Arterial Blood 7.332 L pH (Temp corrected ) Arterial Blood 50.6 H pCO2 (Temp correct) Arterial Blood 82.5 pO2 (Temp corrected ) Arterial Blood 26.2 H HCO3 Arterial Blood -0.2 Base Excess Arterial Blood 94.5 L Oxygen Saturati on Rogelio Test ACCEPTAB Arterial Blood Right Radial Gas Puncture Site Arterial 0.5 Blood Carboxyhe moglobin Arterial Blood 0.3 Methemoglobin Blood Gas A-a 137.3 H O2 Differential Oxyhemoglobin 93.7 Percent Blood Gas 37.0 Temperature Blood Gas NASAL CANNULA Modality FiO2 39.0 Blood Gas MDA Notified Whom Blood Gas 08/16/2018 4:47 Notified Time :41 PM Test 08/16/18 16:46 08/16/18 17:52 08/16/18 18:50 08/16/18 20:07 Bedside Glucose 172 154 156 125 Test 08/16/18 21:07 08/16/18 22:16 08/16/18 22:30 08/16/18 23:13 Bedside Glucose 140 163 147 Blood Gas Blood arterial Specimen Source Arterial Blood 08/16/2018 10:31 Date Drawn :27 PM Arterial Blood 7.352 pH (Temp corrected ) Arterial Blood 54.3 H pCO2 (Temp correct) Arterial Blood 44.6 *L pO2 (Temp corrected ) Arterial Blood 29.4 H HCO3 Arterial Blood 2.9 Base Excess Arterial Blood 79.0 L Oxygen Saturati on Rogelio Test ACCEPTAB Arterial Blood Right Radial Gas Puncture Site Arterial 0.2 Blood Carboxyhe moglobin Arterial Blood 0.3 Methemoglobin Blood Gas A-a 127.3 H O2 Differential Oxyhemoglobin 78.6 L Percent Blood Gas 37.0 Temperature Blood Gas 33 Actual Respiration Rat e Blood Gas NASAL CANNULA Modality FiO2 33.0 Blood Gas Sunshine Corona RN Critical Value Read Back Blood Gas Scott Torres Notified Whom Blood Gas 08/16/2018 10:43 Notified Time :34 PM Test 08/16/18 23:30 08/16/18 23:56 08/17/18 01:01 08/17/18 01:55 Blood Gas Blood arterial Specimen Source Arterial Blood 08/16/2018 11:21 Date Drawn :53 PM Arterial Blood 7.420 pH (Temp corrected ) Arterial Blood 43.5 pCO2 (Temp correct) Arterial Blood 74.0 L pO2 (Temp corrected ) Arterial Blood 27.6 H HCO3 Arterial Blood 2.8 Base Excess Arterial Blood 94.5 L Oxygen Saturati on Rogelio Test ACCEPTAB Arterial Blood Right Radial Gas Puncture Site Arterial 0.1 Blood Carboxyhe moglobin Arterial Blood 0.2 Methemoglobin Blood Gas A-a 306.0 H O2 Differential Oxyhemoglobin 94.2 Percent Blood Gas 37.0 Temperature Blood Gas 14.0 Respiration Rate Blood Gas 24 Actual Respiration Rat e Blood Gas MASK - BIPAP Modality FiO2 60.0 Blood Gas 15/5 IPAP/EPAP Ratio Blood Gas TERELL ASENCIO Notified Whom Blood Gas 08/16/2018 11:33 Notified Time :33 PM Bedside Glucose 151 148 145 Test 08/17/18 02:59 08/17/18 03:52 08/17/18 05:08 08/17/18 05:30 Bedside Glucose 141 133 150 Lactic Acid 1.2 Level Test 08/17/18 05:44 08/17/18 06:03 08/17/18 06:52 08/17/18 08:03 White Blood 7.6 Count Red Blood Count 3.31 L Hemoglobin 9.7 L Hematocrit 31.0 L Mean 93.7 Corpuscular Volume Mean 29.3 Corpuscular Hemoglobin Mean 31.3 L Corpuscular Hemoglobin Conc ent Red Cell 14.9 H Distribution Width Platelet Count 104 #L Mean Platelet 12.1 H Volume Immature 0.400 Granulocytes % Neutrophils % 71.0 Lymphocytes % 13.7 L Monocytes % 11.5 H Eosinophils % 3.0 Basophils % 0.4 Nucleated Red 0.0 Blood Cells % Immature 0.030 Granulocytes # Neutrophils # 5.4 Lymphocytes # 1.1 Monocytes # 0.9 Eosinophils # 0.2 Basophils # 0.0 Nucleated Red 0.0 Blood Cells # Sodium Level 146 H Potassium Level 4.1 Chloride Level 107 Carbon Dioxide 31 Level Anion Gap 8 Blood Urea 63 H Nitrogen Creatinine 2.92 H Est Glomerular Filtrat Rate mL/min Glucose Level 149 # Calcium Level 9.0 Bedside Glucose 150 148 176 Test 08/17/18 09:03 08/17/18 10:23 08/17/18 11:26 Bedside Glucose 144 158 164 Medications Medication Current Medications Atorvastatin Calcium (Lipitor) 40 mg HS PO Last administered on 08/16/18 20:35; Admin Dose 40 MG; Start 08/11/18 at 21:00 Hydralazine HCl (Apresoline) 10 mg Q4H PRN IV SBP >170 Last administered on 08/15/18 10:52; Admin Dose 10 MG; Start 08/11/18 at 12:00 Hydromorphone HCl (Dilaudid) 0.2 mg Q15M PRN IV PAIN LEVEL 1-5 Last administered on 08/17/18 01:43; Admin Dose 0.2 MG; Start 08/13/18 at 15:30 Hydromorphone HCl (Dilaudid) 0.4 mg Q15M PRN IV PAIN LEVEL 6-10 Last administered on 08/15/18 12:50; Admin Dose 0.4 MG; Start 08/13/18 at 15:30 Oxycodone/ Acetaminophen (Percocet (5/ 325)) 1 tab Q3H PRN PO PAIN LEVEL 1-5; Start 08/13/18 at 15:30 Ondansetron HCl (Zofran Inj) 4 mg Q6H PRN IV NAUSEA AND/OR VOMITING; Start 08/13/18 at 15:30 Famotidine (Pepcid Iv) 20 mg DAILY IV Last administered on 08/17/18 08:58; Admin Dose 20 MG; Start 08/13/18 at 20:00 Acetaminophen (Tylenol Tab) 650 mg Q3H PRN PO ELEVATED TEMPERATURE Last administered on 08/16/18 13:57; Admin Dose 650 MG; Start 08/13/18 at 15:30 Albumin Human 250 ml @ 500 mls/hr PRN PRN IV CVP< 8, OR SBP<90 Last administered on 08/13/18 23:45; Admin Dose 500 MLS/HR; Start 08/13/18 at 17:00 Clopidogrel Bisulfate (plaVIX) 75 mg DAILY NGT Last administered on 08/17/18 08:58; Admin Dose 75 MG; Start 08/14/18 at 09:00 Amlodipine Besylate (Norvasc) 5 mg DAILY PO Last administered on 08/17/18 09:01; Admin Dose 5 MG; Start 08/16/18 at 09:30 Apixaban (Eliquis) 5 mg BID PO Last administered on 4/28/19at 09:00; Admin Dose 5 MG; Start 08/16/18 at 10:00 Carvedilol (Coreg) 12.5 mg BID PO Last administered on 08/17/18at 08:59; Admin Dose 12.5 MG; Start 08/16/18 at 10:00 Levalbuterol (Xopenex Neb) 1.25 mg Q6H RESP THERAPY HHN Last administered on 08/17/18at 07:37; Admin Dose 1.25 MG; Start 08/16/18 at 20:00 Ipratropium [place] (Atrovent 0.02% (Neb)) 0.5 mg Q6H RESP THERAPY HHN Last administered on 08/17/18at 07:37; Admin Dose 0.5 MG; Start 08/17/18 at 02:00 Furosemide (Lasix) 40 mg DAILY IV ; Start 08/17/18 at 11:00 Insulin Glargine (Lantus) 25 units 2300 SC ; Start 08/17/18 at 23:00 Diagnostic Test (Pha) (Accu-Chek) 1 ea 02 XX ; Start 08/18/18 at 02:00 Insulin Aspart (Novolog Insulin Pen) NOVOLOG *MODERATE* ALGORI... Q4 SC ; Start 08/17/18 at 13:00 Miscellaneous Information 1 ea NOTE XX ; Start 08/17/18 at 12:30 Glucose (Glutose) 15 gm Q15M PRN PO DECREASED GLUCOSE; Start 08/17/18 at 12:30 Glucose (Glutose) 22.5 gm Q15M PRN PO DECREASED GLUCOSE; Start 08/17/18 at 12:30 Dextrose (D50w Syringe) 25 ml Q15M PRN IV DECREASED GLUCOSE; Start 08/17/18 at 12:30 Dextrose (D50w Syringe) 50 ml Q15M PRN IV DECREASED GLUCOSE; Start 08/17/18 at 12:30 Glucagon (Glucagen) 1 mg Q15M PRN IM DECREASED GLUCOSE; Start 08/17/18 at 12:30 Glucose (Glutose) 15 gm Q15M PRN BUCCAL DECREASED GLUCOSE; Start 08/17/18 at 12 :30 DARRYL SOOD MD Aug 17, 2018 12:25
[2018-08-17] MEDS ORDERED: GLUCOSE GEL 15 GRAM TUBE PO PRN ×2 (12:30)
[2018-08-17] MEDS ORDERED: GLUCAGON 1 MG INJ IM PRN (12:30)
[2018-08-17] MEDS ORDERED: DEXTROSE 50% 50 ML SYRINGE IV PRN ×2 (12:30)
[2018-08-17] MEDS ORDERED: GLUCOSE GEL 15 GRAM TUBE BUCCAL PRN (12:30)
[2018-08-17] MEDS: INSULIN ASPART [NOVOLOG] 3 ML PEN SC SCH ×3 (13:41→20:44)
[2018-08-17] MEDS ORDERED: FUROSEMIDE 20 MG INJ IV ONE (18:00)
[2018-08-17] MEDS: ATORVASTATIN 40 MG TAB PO SCH (20:39)
[2018-08-17] MEDS ORDERED: INSULIN GLARGINE [LANTus] (100 UNITS/ML) SYG SC SCH (23:00)
[2018-08-18] VITALS (17 sets, daily range): BP systolic 61–156; BP diastolic 40–75; PULSE 63–72; RESP 16–28
[2018-08-18] MEDS: INSULIN ASPART [NOVOLOG] 3 ML PEN SC SCH ×6 (01:24→22:11)
[2018-08-18] MEDS: ACCU-CHEK XX SCH (01:29)
[2018-08-18] MEDS: LEVALBUTEROL (NEB) 1.25 MG/0.5 ML AMP HHN SCH ×4 (01:51→22:22)
[2018-08-18] MEDS: IPRATROPIUM (NEB) 0.5 MG/2.5 ML AMP HHN SCH ×4 (01:51→22:22)
[2018-08-18] MEDS ORDERED: NALOXONE (0.4 MG/ML) INJ ONE (06:40)
--- NOTE | 2018-08-18 07:52 | CONS ---
Assessment/Plan Assessment/Plan Hospital Course (Demo Recall) Acute on chronic diastolic CHF: close to euvolemic now with normal JVP. Acute on chronic renal failure: Cr baseline 1.6. Worse after CABG.Now improving Cardiogenic shock: Transient post op, now off inotropic support and CI 2.6 Acute respiratory failure: s/p extubation 08/16 Anemia: from operative blood loss. Required one unit. No active bleeding s/p CABG x5 08/13/18: WINN to LAD, SVG to ramus sequence to obtuse marginal artery, SVG to PDA, SVG to left ventricular extension branch. Difficult case per Dr. Howell with poor targets. CAD: s/p multiple prior PCIs. Cath 08/11/18 with multivessel disease. s/p CABG above Recent left femoral DVT: on Eliquis as outpt. DM HT HL -lasix 40mg PO daily -f/u am labs -Eliquis 5mg BID -continue plavix -coreg 12.5mg BID -amlodipine 5mg -lipitor 40mg Consultation Date/Type/Reason Admit Date/Time Aug 11, 2018 at 09:20 Initial Consult Date 08/11/18 Type of Consult Cardiology Requesting Provider: NERIS BROTHERS MD Date/Time of Note DATE: 08/18/18 TIME: 07:49 24 HR Interval Summary Free Text/Dictation No events. Chest pain improving. No SOB. Diuresed well. Exam/Review of Systems Vital Signs Vitals Vital Signs Date Temp Pulse Resp B/P (MAP) Pulse Ox O2 O2 Flow FiO2 Time Delivery Rate 08/18/18 67 18 128/71 100 05:00 (90) 08/18/18 98.5 04:00 08/18/18 2.0 27 02:08 08/17/18 Nasal 21:30 Cannula Intake and Output 08/17/18 08/17/18 08/18/18 1515:00 23:00 07:00 IntakeIntake Total 211 ml 25 ml 0 ml OutputOutput Total 1250 ml 1200 ml 395 ml BalanceBalance -1039 ml -1175 ml -395 ml Exam Constitutional: alert, oriented Psych: no complaints, nl mood/affect Head: normocephalic, atraumatic Neck: No jvd Respiratory: diminished breath sounds; No clear to auscultation Cardiovascular: regular rate and rhythm; No edema, No systolic murmur Gastrointestinal: soft, non-tender; No distended 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: nl mental status, nl speech Labs Result Diagram: 08/17/1844 08/17/18 0544 Results 24hrs Laboratory Tests Test 08/17/18 08:03 08/17/18 09:03 08/17/18 10:23 08/17/18 11:26 Bedside Glucose 176 144 158 164 Test 08/17/18 13:37 08/17/18 17:29 08/17/18 20:39 08/18/18 01:21 Bedside Glucose 169 210 166 178 Test 08/18/18 05:56 Bedside Glucose 180 Medications Medications Current Medications Atorvastatin Calcium (Lipitor) 40 mg HS PO Last administered on 08/17/18at 20:39; Admin Dose 40 MG; Start 08/11/18 at 21:00 Hydralazine HCl (Apresoline) 10 mg Q4H PRN IV SBP >170 Last administered on 08/15/18at 10:52; Admin Dose 10 MG; Start 08/11/18 at 12:00 Hydromorphone HCl (Dilaudid) 0.2 mg Q15M PRN IV PAIN LEVEL 1-5 Last administered on 08/17/18at 01:43; Admin Dose 0.2 MG; Start 08/13/18 at 15:30 Hydromorphone HCl (Dilaudid) 0.4 mg Q15M PRN IV PAIN LEVEL 6-10 Last administered on 08/15/18at 12:50; Admin Dose 0.4 MG; Start 08/13/18 at 15:30 Oxycodone/ Acetaminophen (Percocet (5/ 325)) 1 tab Q3H PRN PO PAIN LEVEL 1-5; Start 08/13/18 at 15:30 Ondansetron HCl (Zofran Inj) 4 mg Q6H PRN IV NAUSEA AND/OR VOMITING; Start 08/13/18 at 15:30 Famotidine (Pepcid Iv) 20 mg DAILY IV Last administered on 08/17/18at 08:58; Admin Dose 20 MG; Start 08/13/18 at 20:00 Acetaminophen (Tylenol Tab) 650 mg Q3H PRN PO ELEVATED TEMPERATURE Last administered on 08/16/18at 13:57; Admin Dose 650 MG; Start 08/13/18 at 15:30 Albumin Human 250 ml @ 500 mls/hr PRN PRN IV CVP< 8, OR SBP<90 Last administered on 08/13/18 23:45; Admin Dose 500 MLS/HR; Start 08/13/18 at 17:00 Clopidogrel Bisulfate (plaVIX) 75 mg DAILY NGT Last administered on 08/17/18 08:58; Admin Dose 75 MG; Start 08/14/18 at 09:00 Amlodipine Besylate (Norvasc) 5 mg DAILY PO Last administered on 08/17/18 09:01; Admin Dose 5 MG; Start 08/16/18 at 09:30 Apixaban (Eliquis) 5 mg BID PO Last administered on 08/17/18 20:39; Admin Dose 5 MG; Start 08/16/18 at 10:00 Carvedilol (Coreg) 12.5 mg BID PO Last administered on 08/17/18 20:40; Admin Dose 12.5 MG; Start 08/16/18 at 10:00 Levalbuterol (Xopenex Neb) 1.25 mg Q6H RESP THERAPY HHN Last administered on 08/18/18 01:51; Admin Dose 1.25 MG; Start 08/16/18 at 20:00 Ipratropium [place] (Atrovent 0.02% (Neb)) 0.5 mg Q6H RESP THERAPY HHN Last administered on 08/18/18 01:51; Admin Dose 0.5 MG; Start 08/17/18 at 02:00 Insulin Glargine (Lantus) 25 units 2300 SC Last administered on 08/17/18at 22:22; Admin Dose 25 UNITS; Start 08/17/18 at 23:00 Diagnostic Test (Pha) (Accu-Chek) 1 ea 02 XX ; Start 08/18/18 at 02:00 Insulin Aspart (Novolog Insulin Pen) NOVOLOG *MODERATE* ALGORI... Q4 SC Last administered on 08/18/18 06:53; Admin Dose 4 UNIT; Start 08/17/18 at 13:00 Miscellaneous Information 1 ea NOTE XX ; Start 08/17/18 at 12:30 Glucose (Glutose) 15 gm Q15M PRN PO DECREASED GLUCOSE; Start 08/17/18 at 12:30 Glucose (Glutose) 22.5 gm Q15M PRN PO DECREASED GLUCOSE; Start 08/17/18 at 12:30 Dextrose (D50w Syringe) 25 ml Q15M PRN IV DECREASED GLUCOSE; Start 08/17/18 at 12:30 Dextrose (D50w Syringe) 50 ml Q15M PRN IV DECREASED GLUCOSE; Start 08/17/18 at 12:30 Glucagon (Glucagen) 1 mg Q15M PRN IM DECREASED GLUCOSE; Start 08/17/18 at 12:30 Glucose (Glutose) 15 gm Q15M PRN BUCCAL DECREASED GLUCOSE; Start 08/17/18 at 12:30 Furosemide (Lasix) 40 mg DAILY PO ; Start 08/18/18 at 09:00; Status ALONDRA BARAJAS Aug 18, 2018 07:52
[2018-08-18] MEDS: CLOPIDOGREL 75 MG TAB NGT SCH (08:41)
[2018-08-18] MEDS: FUROSEMIDE 40 MG TAB PO SCH (08:41)
[2018-08-18] MEDS: APIXABAN 5 MG TABLET PO SCH ×2 (08:42→21:09)
[2018-08-18] MEDS: AMLODIPINE 5 MG TAB PO SCH (08:42)
[2018-08-18] MEDS: FAMOTIDINE 20 MG INJ IV SCH (08:54)
--- NOTE | 2018-08-18 09:08 | PN ---
Date/Time of Note Date/Time of Note DATE: 08/18/18 TIME: 09:05 Assessment/Plan VTE Prophylaxis Risk score (from Ns)>0 risk: 18 SCD applied (from Ns): No SCD contraindicated: other (yes.) Pharmacological prophylaxis: LMWH Lines/Catheters IV C[facility]ter Type ([facility] Saline Lock [place] line still needed: No Urinary Cath still in place: No Assessment/Plan Assessment/Plan 1. Ischemic heart disease angina three-vessel coronary a. disease.s/p CABG x5 08/13/18: WINN to LAD, SVG to ramus sequence to obtuse marginal artery, SVG to PDA, SVG to left ventricular extension branch. Difficult case per Dr. Howell with poor targets.Vein harvesting and epiaortic scanning of the ascending aorta.CAD: s/p multiple prior PCIs. Cath 08/11/18 with multivessel disease. 2. Hypertension with congestive heart failure diastolic- improved. Now euvolemic. 3. Diabetes mellitus type 2 blood sugar better controlled. On Iv insulin. 4. History of cholecystitis and pancreatitis 5. Acute on chronic kidney disease with baseline creatinine being 1.6 up to 3.5 came down to 2.95 now. Improved after hydration,now mildly dehydrated 6. Dyslipidemia better controlled 7. History of nasal bleeding recurrent- stable. 8. Morbid obesity with snoring and apnea and daytime sleepiness 9. BPH with nocturia 10. Low back pain with radiculopathy 11. 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 Status post cataract ectomy 13. Diabetic nephropathy retinopathy and angiopathy and neuropathy. 14. Constipation- improved. 15. Grief reaction after the of her 16. Gastroesophageal reflux disease 17. Deep venous thrombosis of the left saphenous vein, 2-3 months ago;was on Eliquis 5 mg twice daily, stopped: since 08/11/2018. 18. Gastritis 19. COPD. Quit smoking 10years ago.Successfully extubated with 02sat now 95% with persistent cough. 20. History of nephrolithiasis. 21. Drop of hematocrit; s/p 2 units of prbc tx. stable. 22. Drop of albumone and total protein and mild elevation of lft's. Result Diagram: 08/18/18 0806 08/18/18 0806 Results 24hrs Laboratory Tests Test 08/17/18 10:23 08/17/18 11:26 08/17/18 13:37 08/17/18 17:29 Bedside Glucose 158 164 169 210 Test 08/17/18 20:39 08/18/18 01:21 08/18/18 05:56 08/18/18 08:06 Bedside Glucose 166 178 180 White Blood Count 7.4 Red Blood Count 3.43 L Hemoglobin 10.0 L Hematocrit 31.9 L Mean Corpuscular 93.0 Volume Mean Corpuscular 29.2 Hemoglobin Mean Corpuscular 31.3 L Hemoglobin Concent Red Cell 14.8 H Distribution Width Platelet Count 141 # Mean Platelet Volume 11.2 H Immature 0.700 H Granulocytes % Neutrophils % 69.1 Lymphocytes % 13.7 L Monocytes % 12.3 H Eosinophils % 3.9 Basophils % 0.3 Nucleated Red Blood 0.0 Cells % Immature 0.050 H Granulocytes # Neutrophils # 5.1 Lymphocytes # 1.0 Monocytes # 0.9 Eosinophils # 0.3 Basophils # 0.0 Nucleated Red Blood 0.0 Cells # Sodium Level 148 H Potassium Level 4.0 Chloride Level 106 Carbon Dioxide Level 33 H Anion Gap 9 Blood Urea Nitrogen 69 H Creatinine 2.50 H Est Glomerular Filtrat Rate mL/min Glucose Level 209 Calcium Level 9.0 Test 08/18/18 08:50 Bedside Glucose 212 Subjective 24 Hr Interval Summary Free Text/Dictation Chest pain. Dry cough. Occasional sputum production. Severe cp when he is coughing. Constitutional: poor po, requiring O2; No no complaints, No improved, No chills, No diaphoresis, No disoriented, No febrile, No requiring IVF, No other Eyes: No no complaints, No pain, No discharge, No redness, No visual change, No other ENT: pain, congestion, discharge; No no complaints, No bleeding, No dysphagia, No sore throat, No other Respiratory: No no complaints, No pain, No cough, No pleuritic pain, No shortness of breath, No sputum, No wheezing, No other Cardiovascular: chest pain, edema, lightheadedness, orthopenea, palpitations; No no complaints, No paroxysmal nocturnal dyspnea, No other Gastrointestinal: constipation, decreased appetite; No no complaints, No pain, No blood, No diarrhea, No flatus, No nausea, No passing stool, No vomiting, No other Genitourinary: dysuria, flank pain; No no complaints, No bleeding, No discharge, No hematuria, No other Musculoskeletal: back pain, bone/joint pain; No no complaints, No neck pain, No restricted range of motion, No swelling, No other Skin: pruritis; No no complaints, No bruising, No erythema, No laceration, No rash, No skin lesions, No other Neurologic: dizziness, headache; No no complaints, No confusion, No focal-weakness, No syncope, No seizure, No other Endocrine: No no complaints, No polyuria, No polydypsia, No dry skin, No temp intolerance, No other Lymphatic: No no complaints, No adenopathy, No tender nodes, No lymphadema, No other Psychological: anxiety; No no complaints, No nl mood/affect, No confusion, No depression, No suicidal, No other Immunologic: No no complaints, No immunodeficiency, No pruritis, No rhinitis, No urticaria, No other Exam/Review of Systems Exam Vitals Vital Signs Date Temp Pulse Resp B/P (MAP) Pulse Ox O2 O2 Flow FiO2 Time Delivery Rate 08/18/18 98.2 69 20 140/67 98 Nasal 2.0 08:00 (91) Cannula 08/18/18 27 02:08 Intake and Output 08/17/18 08/17/18 08/18/18 1515:00 23:00 07:00 IntakeIntake Total 211 ml 25 ml 0 ml OutputOutput Total 1250 ml 1200 ml 455 ml BalanceBalance -1039 ml -1175 ml -455 ml Constitutional: alert, oriented, well developed, frail, obese; No non-verbal, No distress, No other Psych: anxiety; No no complaints, No nl mood/affect, No confusion, No depression, No suicidal, No other Head: normocephalic, atraumatic; No lacerations, No hematomas, No other Eyes: EOMI, nl lids, PERRL; No nl conjunctiva, No nl sclera, No icteric, No fundi, disc, No other ENMT: mucosa pink and moist; No nl external ears & nose, No nl lips & teeth, No nl nasal mucosa & septum, No intubated, No tympanic membranes, No other Neck: No supple, No non-tender, No jvd, No bruits, No masses, No thyromegaly, No nuchal rigidity, No other Respiratory: normal air movement, congested cough, crackles/rales, diminished breath sounds; No clear to auscultation, No intercostal retraction, No labored breathing, No respirations, No tactile fremitus, No wheezing, No other Cardiovascular: nl pulses, edema, systolic murmur; No regular rate and rhythm, No bruits, No diastolic murmur, No gallop, No i rregular rhythm, No jugular venous distention (JVD), No murmurs/extra sounds, No rub, No S3, No S4, No other Gastrointestinal: soft, nl liver, spleen, distended; No non-tender, No ascites, No bowel sounds, No firm, No hepatomegaly, No mass, No rebound or guarding, No splenomegaly, No surgical scars, No tender, No other Genitourinary - Male: nl penis, nl scrotum; No CVA tenderness, No discharge, No other Musculoskeletal: joint tenderness; No nl extremities to inspection, No nl gait and stance, No muscle tone, No muscle weakness, No range of motion, No spine non-tender, No swelling, No other Extremities: normal pulses; No calf tenderness, No cyanosis, No clubbing, No edema, No pitting pedal edema, No palpable cord, No tenderness, No other 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: STEAM TUNNEL FEEDER II-XII intact, nl speech; No nl mental status, No nl strength, No confused, No DTR's symmetric, No focal weakness, No lethargic, No numbness, No reflexes, No unresponsive, No other Skin: nl turgor, ecchymosis; No rash or lesions, No diaphoresis, No laceration, No puncture, No other Lymph: nl lymph nodes; No enlarged, No nontender, No other Results Results 24hrs Laboratory Tests Test 08/17/18 10:23 08/17/18 11:26 08/17/18 13:37 08/17/18 17:29 Bedside Glucose 158 164 169 210 Test 08/17/18 20:39 08/18/18 01:21 08/18/18 05:56 08/18/18 08:06 Bedside Glucose 166 178 180 White Blood Count 7.4 Red Blood Count 3.43 L Hemoglobin 10.0 L Hematocrit 31.9 L Mean Corpuscular 93.0 Volume Mean Corpuscular 29.2 Hemoglobin Mean Corpuscular 31.3 L Hemoglobin Concent Red Cell 14.8 H Distribution Width Platelet Count 141 # Mean Platelet Volume 11.2 H Immature 0.700 H Granulocytes % Neutrophils % 69.1 Lymphocytes % 13.7 L Monocytes % 12.3 H Eosinophils % 3.9 Basophils % 0.3 Nucleated Red Blood 0.0 Cells % Immature 0.050 H Granulocytes # Neutrophils # 5.1 Lymphocytes # 1.0 Monocytes # 0.9 Eosinophils # 0.3 Basophils # 0.0 Nucleated Red Blood 0.0 Cells # Sodium Level 148 H Potassium Level 4.0 Chloride Level 106 Carbon Dioxide Level 33 H Anion Gap 9 Blood Urea Nitrogen 69 H Creatinine 2.50 H Est Glomerular Filtrat Rate mL/min Glucose Level 209 Calcium Level 9.0 Test 08/18/18 08:50 Bedside Glucose 212 Medications Medication Current Medications Atorvastatin Calcium (Lipitor) 40 mg HS PO Last administered on 08/17/18 20:39; Admin Dose 40 MG; Start 08/11/18 at 21:00 Hydralazine HCl (Apresoline) 10 mg Q4H PRN IV SBP >170 Last administered on 08/15/18at 10:52; Admin Dose 10 MG; Start 08/11/18 at 12:00 Hydromorphone HCl (Dilaudid) 0.2 mg Q15M PRN IV PAIN LEVEL 1-5 Last administered on 08/17/18at 01:43; Admin Dose 0.2 MG; Start 08/13/18 at 15:30 Hydromorphone HCl (Dilaudid) 0.4 mg Q15M PRN IV PAIN LEVEL 6-10 Last administered on 08/15/18at 12:50; Admin Dose 0.4 MG; Start 08/13/18 at 15:30 Oxycodone/ Acetaminophen (Percocet (5/ 325)) 1 tab Q3H PRN PO PAIN LEVEL 1-5; Start 08/13/18 at 15:30 Ondansetron HCl (Zofran Inj) 4 mg Q6H PRN IV NAUSEA AND/OR VOMITING; Start 08/13/18 at 15:30 Famotidine (Pepcid Iv) 20 mg DAILY IV Last administered on 08/18/18 08:54; Admin Dose 20 MG; Start 08/13/18 at 20:00 Acetaminophen (Tylenol Tab) 650 mg Q3H PRN PO ELEVATED TEMPERATURE Last administered on 08/16/18 13:57; Admin Dose 650 MG; Start 08/13/18 at 15:30 Albumin Human 250 ml @ 500 mls/hr PRN PRN IV CVP< 8, OR SBP<90 Last administered on 08/13/18 23:45; Admin Dose 500 MLS/HR; Start 08/13/18 at 17:00 Clopidogrel Bisulfate (plaVIX) 75 mg DAILY NGT Last administered on 08/18/18 08:41; Admin Dose 75 MG; Start 08/14/18 at 09:00 Amlodipine Besylate (Norvasc) 5 mg DAILY PO Last administered on 08/18/18 08:42; Admin Dose 5 MG; Start 08/16/18 at 09:30 Apixaban (Eliquis) 5 mg BID PO Last administered on 08/18/18 08:42; Admin Dose 5 MG; Start 08/16/18 at 10:00 Carvedilol (Coreg) 12.5 mg BID PO Last administered on 08/18/18 08:41; Admin Dose 12.5 MG; Start 08/16/18 at 10:00 Levalbuterol (Xopenex Neb) 1.25 mg Q6H RESP THERAPY HHN Last administered on 08/18/18 08:21; Admin Dose 1.25 MG; Start 08/16/18 at 20:00 Ipratropium [place] (Atrovent 0.02% (Neb)) 0.5 mg Q6H RESP THERAPY HHN Last administered on 08/18/18 08:21; Admin Dose 0.5 MG; Start 08/17/18 at 02:00 Insulin Glargine (Lantus) 25 units 2300 SC Last administered on 08/17/18 22:22; Admin Dose 25 UNITS; Start 08/17/18 at 23:00 Diagnostic Test (Pha) (Accu-Chek) 1 ea 02 XX ; Start 08/18/18 at 02:00 Insulin Aspart (Novolog Insulin Pen) NOVOLOG *MODERATE* ALGORI... Q4 SC Last administered on 08/18/18 08:52; Admin Dose 4 UNIT; Start 08/17/18 at 13:00 Miscellaneous Information 1 ea NOTE XX ; Start 08/17/18 at 12:30 Glucose (Glutose) 15 gm Q15M PRN PO DECREASED GLUCOSE; Start 08/17/18 at 12:30 Glucose (Glutose) 22.5 gm Q15M PRN PO DECREASED GLUCOSE; Start 08/17/18 at 12:30 Dextrose (D50w Syringe) 25 ml Q15M PRN IV DECREASED GLUCOSE; Start 08/17/18 at 12:30 Dextrose (D50w Syringe) 50 ml Q15M PRN IV DECREASED GLUCOSE; Start 08/17/18 at 12:30 Glucagon (Glucagen) 1 mg Q15M PRN IM DECREASED GLUCOSE; Start 08/17/18 at 12:30 Glucose (Glutose) 15 gm Q15M PRN BUCCAL DECREASED GLUCOSE; Start 08/17/18 at 12 :30 Furosemide (Lasix) 40 mg DAILY PO Last administered on 08/18/18at 08:41; Admin Dose 40 MG; Start 08/18/18 at 09:00 NERIS BROTHERS MD Aug 18, 2018 09:08
--- NOTE | 2018-08-18 09:23 | CONS ---
Assessment/Plan Assessment/Plan Assessment/Plan (Daily) Chest x-ray was reviewed from today which is showing mild cardiomegaly. Assessment and recommendations; 1. Patient status post CABG with stable clinical status. Status post extubation. 2. Mild CHF. 3. Acute on chronic renal injury with improving renal function. 4. History of diabetes and hypertension. 5. Anemia 6. Improving thrombocytopenia. Continue current supportive care. Patient can be transferred to telemetry unit. Consultation Date/Type/Reason Admit Date/Time Aug 11, 2018 at 09:20 Initial Consult Date 08/14/18 Type of Consult Pulmonary/critical care Patient is a 73-year-old male who was admitted for elective CABG surgery. Surgery was uneventful. Patient could not be immediately extubated and was t ransferred to ICU intubated. By the time I saw him, patient completely awake and responsive appropriately orally intubated and did not appear to be in any distress whatsoever. History has been obtained from medical records. Past medical history; 1. History of hypertension 2. Diabetes. 3. Diabetic nephropathy neuropathy and retinopathy. 4. Depression 5. CHF 6. History of pancreatitis 7. Possibly underlying COPD as well Medications; reviewed. Patient is on insulin drip 9 units/h, milrinone 0.35 mics per kilo gram per minute. Versed 4 mg/h. Other medications were reviewed as well. Allergies; none. Social history; evidently positive for smoking. Family; patient is a . Occupational history not available. Review of systems; very limited review of systems will be obtained. Patient denies any shortness of breath. General exam; elderly male, morbidly obese, orally intubated, awake, currently in no distress. Requesting Provider: NERIS BROTHERS MD Date/Time of Note DATE: 08/18/18 TIME: 09:21 24 HR Interval Summary Free Text/Dictation Patient's condition is stable. Remains completely awake and alert. Denies any shortness of breath, chest pain. General exam; elderly male, awake and alert. Currently in no distress. On 2 L nasal cannula. Exam/Review of Systems Exam Vitals Vital Signs Date Temp Pulse Resp B/P (MAP) Pulse Ox O2 O2 Flow FiO2 Time Delivery Rate 08/18/18 67 18 134/66 99 09:00 (88) 08/18/18 98.2 Nasal 2.0 08:00 Cannula 08/18/18 27 02:08 Intake and Output 08/17/18 08/17/18 08/18/18 1515:00 23:00 07:00 IntakeIntake Total 211 ml 25 ml 0 ml OutputOutput Total 1250 ml 1200 ml 455 ml BalanceBalance -1039 ml -1175 ml -455 ml Exam H ENT exam; supple neck, no JVD. No lymphadenopathy. Midline trachea. No thyromegaly. Patient has fair dentition. Chest exam; clear to auscultation. S1-S2 audible, no murmurs. Dressing applied to sternum. Abdomen exam; soft, no organomegaly. Bowel sounds audible. Nontender. Mildly protuberant. Extremity exam; trace edema. PHARMACY TECHNOLOGIST exam; no focal deficit. Results Result Diagram: 08/18/18 0806 08/18/18 0806 Results 24hrs Laboratory Tests Test 08/17/18 10:23 08/17/18 11:26 08/17/18 13:37 08/17/18 17:29 Bedside Glucose 158 164 169 210 Test 08/17/18 20:39 08/18/18 01:21 08/18/18 05:56 08/18/18 08:06 Bedside Glucose 166 178 180 White Blood Count 7.4 Red Blood Count 3.43 L Hemoglobin 10.0 L Hematocrit 31.9 L Mean Corpuscular 93.0 Volume Mean Corpuscular 29.2 Hemoglobin Mean Corpuscular 31.3 L Hemoglobin Concent Red Cell 14.8 H Distribution Width Platelet Count 141 # Mean Platelet Volume 11.2 H Immature 0.700 H Granulocytes % Neutrophils % 69.1 Lymphocytes % 13.7 L Monocytes % 12.3 H Eosinophils % 3.9 Basophils % 0.3 Nucleated Red Blood 0.0 Cells % Immature 0.050 H Granulocytes # Neutrophils # 5.1 Lymphocytes # 1.0 Monocytes # 0.9 Eosinophils # 0.3 Basophils # 0.0 Nucleated Red Blood 0.0 Cells # Sodium Level 148 H Potassium Level 4.0 Chloride Level 106 Carbon Dioxide Level 33 H Anion Gap 9 Blood Urea Nitrogen 69 H Creatinine 2.50 H Est Glomerular Filtrat Rate mL/min Glucose Level 209 Calcium Level 9.0 Test 08/18/18 08:50 Bedside Glucose 212 Medications Medication Current Medications Atorvastatin Calcium (Lipitor) 40 mg HS PO Last administered on 4/28/19at 20:39; Admin Dose 40 MG; Start 08/11/18 at 21:00 Hydralazine HCl (Apresoline) 10 mg Q4H PRN IV SBP >170 Last administered on 08/15/18 10:52; Admin Dose 10 MG; Start 08/11/18 at 12:00 Hydromorphone HCl (Dilaudid) 0.2 mg Q15M PRN IV PAIN LEVEL 1-5 Last administered on 08/17/18 01:43; Admin Dose 0.2 MG; Start 08/13/18 at 15:30 Hydromorphone HCl (Dilaudid) 0.4 mg Q15M PRN IV PAIN LEVEL 6-10 Last administered on 08/15/18 12:50; Admin Dose 0.4 MG; Start 08/13/18 at 15:30 Oxycodone/ Acetaminophen (Percocet (5/ 325)) 1 tab Q3H PRN PO PAIN LEVEL 1-5; Start 08/13/18 at 15:30 Ondansetron HCl (Zofran Inj) 4 mg Q6H PRN IV NAUSEA AND/OR VOMITING; Start 08/13/18 at 15:30 Famotidine (Pepcid Iv) 20 mg DAILY IV Last administered on 08/18/18 08:54; Admin Dose 20 MG; Start 08/13/18 at 20:00 Acetaminophen (Tylenol Tab) 650 mg Q3H PRN PO ELEVATED TEMPERATURE Last administered on 08/16/18 13:57; Admin Dose 650 MG; Start 08/13/18 at 15:30 Albumin Human 250 ml @ 500 mls/hr PRN PRN IV CVP< 8, OR SBP<90 Last administered on 08/13/18 23:45; Admin Dose 500 MLS/HR; Start 08/13/18 at 17:00 Clopidogrel Bisulfate (plaVIX) 75 mg DAILY NGT Last administered on 08/18/18 08:41; Admin Dose 75 MG; Start 08/14/18 at 09:00 Amlodipine Besylate (Norvasc) 5 mg DAILY PO Last administered on 08/18/18 08:42; Admin Dose 5 MG; Start 08/16/18 at 09:30 Apixaban (Eliquis) 5 mg BID PO Last administered on 4/29/19at 08:42; Admin Dose 5 MG; Start 08/16/18 at 10:00 Carvedilol (Coreg) 12.5 mg BID PO Last administered on 08/18/18at 08:41; Admin Dose 12.5 MG; Start 08/16/18 at 10:00 Levalbuterol (Xopenex Neb) 1.25 mg Q6H RESP THERAPY HHN Last administered on 08/18/18at 08:21; Admin Dose 1.25 MG; Start 08/16/18 at 20:00 Ipratropium [place] (Atrovent 0.02% (Neb)) 0.5 mg Q6H RESP THERAPY HHN Last administered on 08/18/18at 08:21; Admin Dose 0.5 MG; Start 08/17/18 at 02:00 Insulin Glargine (Lantus) 25 units 2300 SC Last administered on 08/17/18at 22:22; Admin Dose 25 UNITS; Start 08/17/18 at 23:00 Diagnostic Test (Pha) (Accu-Chek) 1 ea 02 XX ; Start 08/18/18 at 02:00 Insulin Aspart (Novolog Insulin Pen) NOVOLOG *MODERATE* ALGORI... Q4 SC Last administered on 08/18/18at 08:52; Admin Dose 4 UNIT; Start 08/17/18 at 13:00 Miscellaneous Information 1 ea NOTE XX ; Start 08/17/18 at 12:30 Glucose (Glutose) 15 gm Q15M PRN PO DECREASED GLUCOSE; Start 08/17/18 at 12:30 Glucose (Glutose) 22.5 gm Q15M PRN PO DECREASED GLUCOSE; Start 08/17/18 at 12:30 Dextrose (D50w Syringe) 25 ml Q15M PRN IV DECREASED GLUCOSE; Start 08/17/18 at 12:30 Dextrose (D50w Syringe) 50 ml Q15M PRN IV DECREASED GLUCOSE; Start 08/17/18 at 12:30 Glucagon (Glucagen) 1 mg Q15M PRN IM DECREASED GLUCOSE; Start 08/17/18 at 12:30 Glucose (Glutose) 15 gm Q15M PRN BUCCAL DECREASED GLUCOSE; Start 08/17/18 at 12:30 Furosemide (Lasix) 40 mg DAILY PO Last administered on 08/18/18at 08:41; Admin Dose 40 MG; Start 08/18/18 at 09:00 CORETTA ADAMSON Aug 18, 2018 09:23
--- NOTE | 2018-08-18 09:38 | PN ---
Date/Time of Note Date/Time of Note DATE: 08/18/18 TIME: 09:36 Assessment/Plan Lines/Catheters IV Catheter Type (from Nrsg): Saline Lock [place] in Place (from Nrsg): No Assessment/Plan Assessment/Plan s/p cabg prolonged vent but extubated d/c M[place] adjusted insulin ok to telemetry Subjective 24 Hr Interval Summary Constitutional: improved Feeding: advancing diet Pain Control: well controlled Exam/Review of Systems Vital Signs Vitals Vital Signs Date Temp Pulse Resp B/P (MAP) Pulse Ox O2 O2 Flow FiO2 Time Delivery Rate 08/18/18 67 18 134/66 99 09:00 (88) 08/18/18 98.2 Nasal 2.0 08:00 Cannula 08/18/18 27 02:08 Intake and Output 08/17/18 08/17/18 08/18/18 1515:00 23:00 07:00 IntakeIntake Total 211 ml 25 ml 0 ml OutputOutput Total 1250 ml 1200 ml 455 ml BalanceBalance -1039 ml -1175 ml -455 ml Exam Constitutional: alert Psych: no complaints Head: atraumatic Eyes: EOMI ENMT: nl lips & teeth Neck: supple Respiratory: normal air movement, other (2 liters n/c) Cardiovascular: regular rate and rhythm Gastrointestinal: soft Genitourinary - Male: other (mancia) Musculoskeletal: nl extremities to inspection Results Result Diagram: 08/18/18 0808/[id number]/18805 CHONG LOCKHART MD Aug 18, 2018 09:38
--- NOTE | 2018-08-18 15:45 | CONS ---
Assessment/Plan Assessment/Plan Assessment/Plan (Daily) 1. acute kidney injury vs possible baseline CKD II due to ishcemic ATN + Hemodynamics 2. 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 H/o HTN 4. H/o HL 5. H/o DM II 6. H/o CAD with previous stent placement Plan: BUN/Cr 69/2.5, BP stable, afebrile, BP stable Monitor urine output BP stable will follow up Consultation Date/Type/Reason Admit Date/Time Aug 11, 2018 at 09:20 Initial Consult Date 08/11/18 Type of Consult NEPHROLOGY Requesting Provider: NERIS BROTHERS MD Date/Time of Note DATE: 08/18/18 TIME: 15:45 Exam/Review of Systems Exam Vitals Vital Signs Date Temp Pulse Resp B/P (MAP) Pulse Ox O2 O2 Flow FiO2 Time Delivery Rate 08/18/18 98.4 64 18 121/60 98 14:59 (80) 08/18/18 Nasal 2.0 12:00 Cannula 08/18/18 27 02:08 Intake and Output 08/17/18 08/17/18 08/18/18 1515:00 23:00 07:00 IntakeIntake Total 211 ml 25 ml 0 ml OutputOutput Total 1250 ml 1200 ml 455 ml BalanceBalance -1039 ml -1175 ml -455 ml Results Result Diagram: 08/18/18 0806 08/18/18 0806 Results 24hrs Laboratory Tests Test 08/17/18 17:29 08/17/18 20:39 08/18/18 01:21 08/18/18 05:56 Bedside Glucose 210 166 178 180 Test 08/18/18 08:06 08/18/18 08:50 08/18/18 12:28 White Blood Count 7.4 Red Blood Count 3.43 L Hemoglobin 10.0 L Hematocrit 31.9 L Mean Corpuscular 93.0 Volume Mean Corpuscular 29.2 Hemoglobin Mean Corpuscular 31.3 L Hemoglobin Concent Red Cell 14.8 H Distribution Width Platelet Count 141 # Mean Platelet Volume 11.2 H Immature 0.700 H Granulocytes % Neutrophils % 69.1 Lymphocytes % 13.7 L Monocytes % 12.3 H Eosinophils % 3.9 Basophils % 0.3 Nucleated Red Blood 0.0 Cells % Immature 0.050 H Granulocytes # Neutrophils # 5.1 Lymphocytes # 1.0 Monocytes # 0.9 Eosinophils # 0.3 Basophils # 0.0 Nucleated Red Blood 0.0 Cells # Sodium Level 148 H Potassium Level 4.0 Chloride Level 106 Carbon Dioxide Level 33 H Anion Gap 9 Blood Urea Nitrogen 69 H Creatinine 2.50 H Est Glomerular Filtrat Rate mL/min Glucose Level 209 Calcium Level 9.0 Bedside Glucose 212 222 H Medications Medication Current Medications Atorvastatin Calcium (Lipitor) 40 mg HS PO Last administered on 08/17/18 20:39; Admin Dose 40 MG; Start 08/11/18 at 21:00 Hydralazine HCl (Apresoline) 10 mg Q4H PRN IV SBP >170 Last administered on 08/15/18 10:52; Admin Dose 10 MG; Start 08/11/18 at 12:00 Hydromorphone HCl (Dilaudid) 0.2 mg Q15M PRN IV PAIN LEVEL 1-5 Last administered on 08/17/18 01:43; Admin Dose 0.2 MG; Start 08/13/18 at 15:30 Hydromorphone HCl (Dilaudid) 0.4 mg Q15M PRN IV PAIN LEVEL 6-10 Last admini stered on 08/15/18 12:50; Admin Dose 0.4 MG; Start 08/13/18 at 15:30 Oxycodone/ Acetaminophen (Percocet (5/ 325)) 1 tab Q3H PRN PO PAIN LEVEL 1-5; Start 08/13/18 at 15:30 Ondansetron HCl (Zofran Inj) 4 mg Q6H PRN IV NAUSEA AND/OR VOMITING; Start 08/13/18 at 15:30 Acetaminophen (Tylenol Tab) 650 mg Q3H PRN PO ELEVATED TEMPERATURE Last administered on 08/16/18 13:57; Admin Dose 650 MG; Start 08/13/18 at 15:30 Albumin Human 250 ml @ 500 mls/hr PRN PRN IV CVP< 8, OR SBP<90 Last administered on 08/13/18 23:45; Admin Dose 500 MLS/HR; Start 08/13/18 at 17:00 Clopidogrel Bisulfate (plaVIX) 75 mg DAILY NGT Last administered on 08/18/18 08:41; Admin Dose 75 MG; Start 08/14/18 at 09:00 Amlodipine Besylate (Norvasc) 5 mg DAILY PO Last administered on 08/18/18 08:42; Admin Dose 5 MG; Start 08/16/18 at 09:30 Apixaban (Eliquis) 5 mg BID PO Last administered on 08/18/18 08:42; Admin Dose 5 MG; Start 08/16/18 at 10:00 Carvedilol (Coreg) 12.5 mg BID PO Last administered on 08/18/18 08:41; Admin Dose 12.5 MG; Start 08/16/18 at 10:00 Levalbuterol (Xopenex Neb) 1.25 mg Q6H RESP THERAPY HHN Last administered on 08/18/18 08:21; Admin Dose 1.25 MG; Start 08/16/18 at 20:00 Ipratropium [place] (Atrovent 0.02% (Neb)) 0.5 mg Q6H RESP THERAPY HHN Last administered on 08/18/18at 08:21; Admin Dose 0.5 MG; Start 08/17/18 at 02:00 Diagnostic Test (Pha) (Accu-Chek) 1 ea 02 XX ; Start 08/18/18 at 02:00 Insulin Aspart (Novolog Insulin Pen) NOVOLOG *MODERATE* ALGORI... Q4 SC Last administered on 08/18/18at 12:33; Admin Dose 6 UNIT; Start 08/17/18 at 13:00 Miscellaneous Information 1 ea NOTE XX ; Start 08/17/18 at 12:30 Glucose (Glutose) 15 gm Q15M PRN PO DECREASED GLUCOSE; Start 08/17/18 at 12:30 Glucose (Glutose) 22.5 gm Q15M PRN PO DECREASED GLUCOSE; Start 08/17/18 at 12:30 Dextrose (D50w Syringe) 25 ml Q15M PRN IV DECREASED GLUCOSE; Start 08/17/18 at 12:30 Dextrose (D50w Syringe) 50 ml Q15M PRN IV DECREASED GLUCOSE; Start 08/17/18 at 12:30 Glucagon (Glucagen) 1 mg Q15M PRN IM DECREASED GLUCOSE; Start 08/17/18 at 12:30 Glucose (Glutose) 15 gm Q15M PRN BUCCAL DECREASED GLUCOSE; Start 08/17/18 at 12:30 Furosemide (Lasix) 40 mg DAILY PO Last administered on 08/18/18at 08:41; Admin Dose 40 MG; Start 08/18/18 at 09:00 Insulin Glargine (Lantus) 28 units 2300 SC ; Start 08/18/18 at 23:00 Famotidine (Pepcid) 20 mg DAILY PO ; Start 08/19/18 at 09:00 DARYRL SOOD MD Aug 18, 2018 15:45
[2018-08-18] MEDS: ATORVASTATIN 40 MG TAB PO SCH (21:09)
[2018-08-19] VITALS (10 sets, daily range): BP systolic 104–139; BP diastolic 54–66; PULSE 54–72; RESP 18–23
[2018-08-19] MEDS: ACCU-CHEK XX SCH (02:00)
[2018-08-19] MEDS: INSULIN ASPART [NOVOLOG] 3 ML PEN SC SCH ×7 (02:48→21:00)
[2018-08-19] MEDS: IPRATROPIUM (NEB) 0.5 MG/2.5 ML AMP HHN SCH ×4 (03:10→19:41)
[2018-08-19] MEDS: LEVALBUTEROL (NEB) 1.25 MG/0.5 ML AMP HHN SCH ×4 (03:10→19:41)
--- NOTE | 2018-08-19 07:04 | PN ---
Date/Time of Note Date/Time of Note DATE: 08/19/18 TIME: 07:03 Assessment/Plan Lines/Catheters IV Catheter Type (from [facility]): Saline Lock [place] in Place (from Nrs): No Assessment/Plan Assessment/Plan Doing well, NSR. remove pacing wires. continue gentle diuresis. increase activity Exam/Review of Systems Vital Signs Vitals Vital Signs Date Temp Pulse Resp B/P (MAP) Pulse Ox O2 O2 Flow FiO2 Time Delivery Rate 08/19/18 97.4 63 18 123/59 96 04:00 (80) 08/19/18 Nasal 3.0 32 03:14 Cannula Intake and Output 08/18/18 08/18/18 08/19/18 1515:00 23:00 07:00 IntakeIntake Total 720 ml 600 ml 200 ml OutputOutput Total 290 ml 300 ml 300 ml BalanceBalance 430 ml 300 ml -100 ml Results Result Diagram: 08/18/18 0806 08/18/18 0806 LESIA DANIELLE MD Aug 19, 2018 07:04
[2018-08-19] MEDS: OXYCODONE/ACETAMINOPHEN (5/325) TAB PO PRN (07:59)
[2018-08-19] MEDS: CLOPIDOGREL 75 MG TAB NGT SCH (09:41)
[2018-08-19] MEDS: APIXABAN 5 MG TABLET PO SCH ×2 (09:41→21:28)
[2018-08-19] MEDS: AMLODIPINE 5 MG TAB PO SCH (09:42)
[2018-08-19] MEDS: FAMOTIDINE 20 MG TAB PO SCH (09:42)
[2018-08-19] MEDS: FUROSEMIDE 40 MG TAB PO SCH (09:42)
--- NOTE | 2018-08-19 11:16 | CONS ---
Assessment/Plan Assessment/Plan Assessment/Plan (Daily) Assessment and recommendations; 1. Patient status post CABG with prolonged post surgery intubation due to underlying COPD and CHF with marked overall clinical improvement. 2. Hypertension, diabetes, anemia with improving thrombocytopenia. 3. Prior history of pancreatitis. Continue current supportive care. Consider discharge to rehab center. Consultation Date/Type/Reason Admit Date/Time Aug 11, 2018 at 09:20 Initial Consult Date 08/14/18 Type of Consult Pulmonary/critical care Patient is a 73-year-old male who was admitted for elective CABG surgery. Surgery was uneventful. Patient could not be immediately extubated and was transferred to ICU intubated. By the time I saw him, patient completely awake and responsive appropriately orally intubated and did not appear to be in any distress whatsoever. History has been obtained from medical records. Past medical history; 1. History of hypertension 2. Diabetes. 3. Diabetic nephropathy neuropathy and retinopathy. 4. Depression 5. CHF 6. History of pancreatitis 7. Possibly underlying COPD as well Medications; reviewed. Patient is on insulin drip 9 units/h, milrinone 0.35 mics per kilo gram per minute. Versed 4 mg/h. Other medications were reviewed as well. Allergies; none. Social history; evidently positive for smoking. Family; patient is a . Occupational history not available. Review of systems; very limited review of systems will be obtained. Patient denies any shortness of breath. General exam; elderly male, morbidly obese, orally intubated, awake, currently in no distress. Requesting Provider: NERIS BROTHERS MD Date/Time of Note DATE: 08/19/18 TIME: 11:14 24 HR Interval Summary Free Text/Dictation Patient's condition is stable. Remains awake and alert. Has remained hemodynamically stable. Denies any shortness of breath, chest pain. General exam; elderly male, awake and alert. Currently in no distress. Exam/Review of Systems Exam Vitals Vital Signs Date Temp Pulse Resp B/P (MAP) Pulse Ox O2 O2 Flow FiO2 Time Delivery Rate 08/19/18 Nasal 2.0 08:30 Cannula 08/19/18 60 20 98 08:24 08/19/18 98.0 127/65 07:17 (85) 08/19/18 32 03:14 Intake and Output 08/18/18 08/18/18 08/19/18 1515:00 23:00 07:00 IntakeIntake Total 720 ml 600 ml 200 ml OutputOutput Total 290 ml 300 ml 300 ml BalanceBalance 430 ml 300 ml -100 ml Exam HE ENT exam; supple neck, positive JVD. No lymphadenopathy. Midline trachea. No thyromegaly. Patient has fair dentition. Chest exam; diminished but clear breath sounds. S1-S2 audible, no murmurs. Regular rhythm. Sternal wound is healing well. Abdomen exam; soft, nontender. No organomegaly. Bowel sounds are audible. Extremity exam; no peripheral edema clubbing. STEM CRUSHER exam; no focal deficit. Results Result Diagram: 08/19/18 0740 08/19/18 0740 Results 24hrs Laboratory Tests Test 08/18/18 12:28 08/18/18 17:25 08/18/18 21:59 08/19/18 02:37 Bedside Glucose 222 H 176 324 H 163 Test 08/19/18 05:22 08/19/18 07:40 08/19/18 07:57 Bedside Glucose 151 157 White Blood Count 8.1 Red Blood Count 3.33 L Hemoglobin 9.6 L Hematocrit 30.8 L Mean Corpuscular 92.5 Volume Mean Corpuscular 28.8 L Hemoglobin Mean Corpuscular 31.2 L Hemoglobin Concent Red Cell 14.3 Distribution Width Platelet Count 153 Mean Platelet Volume 11.7 H Immature 0.700 H Granulocytes % Neutrophils % 61.1 Lymphocytes % 18.6 Monocytes % 12.1 H Eosinophils % 7.1 H Basophils % 0.4 Nucleated Red Blood 0.0 Cells % Immature 0.060 H Granulocytes # Neutrophils # 5.0 Lymphocytes # 1.5 Monocytes # 1.0 H Eosinophils # 0.6 H Basophils # 0.0 Nucleated Red Blood 0.0 Cells # Sodium Level 139 Potassium Level 3.6 Chloride Level 98 Carbon Dioxide Level 31 Anion Gap 10 Blood Urea Nitrogen 61 H Creatinine 2.05 H Est Glomerular Filtrat Rate mL/min Glucose Level 152 Calcium Level 8.7 Magnesium Level 1.9 Iron Level 25 L Total Iron Binding 222 L Capacity Percent Iron 11 L Saturation Total Bilirubin 0.8 Direct Bilirubin 0.00 Indirect Bilirubin 0.8 Aspartate Amino 50 H Transf (AST/SGOT) Alanine 28 Aminotransferase (AL T/SGPT) Alkaline Phosphatase 56 Total Protein 6.6 Albumin 3.4 Globulin 3.20 Albumin/Globulin 1.06 Ratio Medications Medication Current Medications Atorvastatin Calcium (Lipitor) 40 mg HS PO Last administered on 08/18/18 21:0 9; Admin Dose 40 MG; Start 08/11/18 at 21:00 Hydralazine HCl (Apresoline) 10 mg Q4H PRN IV SBP >170 Last administered on 08/15/18 10:52; Admin Dose 10 MG; Start 08/11/18 at 12:00 Hydromorphone HCl (Dilaudid) 0.2 mg Q15M PRN IV PAIN LEVEL 1-5 Last administered on 08/17/18 01:43; Admin Dose 0.2 MG; Start 08/13/18 at 15:30 Hydromorphone HCl (Dilaudid) 0.4 mg Q15M PRN IV PAIN LEVEL 6-10 Last admi nistered on 08/15/18 12:50; Admin Dose 0.4 MG; Start 08/13/18 at 15:30 Oxycodone/ Acetaminophen (Percocet (5/ 325)) 1 tab Q3H PRN PO PAIN LEVEL 1-5 Last administered on 08/19/18 07:59; Admin Dose 1 TAB; Start 08/13/18 at 15:30 Ondansetron HCl (Zofran Inj) 4 mg Q6H PRN IV NAUSEA AND/OR VOMITING; Start 08/13/18 at 15:30 Acetaminophen (Tylenol Tab) 650 mg Q3H PRN PO ELEVATED TEMPERATURE Last adm inistered on 08/16/18at 13:57; Admin Dose 650 MG; Start 08/13/18 at 15:30 Albumin Human 250 ml @ 500 mls/hr PRN PRN IV CVP< 8, OR SBP<90 Last administered on 08/13/18 23:45; Admin Dose 500 MLS/HR; Start 08/13/18 at 17:00 Clopidogrel Bisulfate (plaVIX) 75 mg DAILY NGT Last administered on 08/19/18 09:41; Admin Dose 75 MG; Start 08/14/18 at 09:00 Amlodipine Besylate (Norvasc) 5 mg DAILY PO Last administered on 08/19/18 09:42; Admin Dose 5 MG; Start 08/16/18 at 09:30 Apixaban (Eliquis) 5 mg BID PO Last administered on 08/19/18 09:41; Admin Dose 5 MG; Start 08/16/18 at 10:00 Carvedilol (Coreg) 12.5 mg BID PO Last administered on 08/19/18 09:41; Admin Dose 12.5 MG; Start 08/16/18 at 10:00 Levalbuterol (Xopenex Neb) 1.25 mg Q6H RESP THERAPY HHN Last administered on 08/19/18 08:24; Admin Dose 1.25 MG; Start 08/16/18 at 20:00 Ipratropium [place] (Atrovent 0.02% (Neb)) 0.5 mg Q6H RESP THERAPY HHN Last administered on 08/19/18 08:24; Admin Dose 0.5 MG; Start 08/17/18 at 02:00 Diagnostic Test (Pha) (Accu-Chek) 1 ea 02 XX ; Start 08/18/18 at 02:00 Insulin Aspart (Novolog Insulin Pen) NOVOLOG *MODERATE* ALGORI... Q4 SC Last administered on 08/19/18at 08:01; Admin Dose 2 UNIT; Start 08/17/18 at 13:00 Miscellaneous Information 1 ea NOTE XX ; Start 08/17/18 at 12:30 Glucose (Glutose) 15 gm Q15M PRN PO DECREASED GLUCOSE; Start 08/17/18 at 12:30 Glucose (Glutose) 22.5 gm Q15M PRN PO DECREASED GLUCOSE; Start 08/17/18 at 12:30 Dextrose (D50w Syringe) 25 ml Q15M PRN IV DECREASED GLUCOSE; Start 08/17/18 at 12:30 Dextrose (D50w Syringe) 50 ml Q15M PRN IV DECREASED GLUCOSE; Start 08/17/18 at 12:30 Glucagon (Glucagen) 1 mg Q15M PRN IM DECREASED GLUCOSE; Start 08/17/18 at 12:30 Glucose (Glutose) 15 gm Q15M PRN BUCCAL DECREASED GLUCOSE; Start 08/17/18 at 12:30 Furosemide (Lasix) 40 mg DAILY PO Last administered on 08/19/18at 09:42; Admin Dose 40 MG; Start 08/18/18 at 09:00 Insulin Glargine (Lantus) 28 units 2300 SC Last administered on 08/19/18at 00:00; Admin Dose 28 UNITS; Start 08/18/18 at 23:00 Famotidine (Pepcid) 20 mg DAILY PO Last administered on 08/19/18at 09:42; Admin Dose 20 MG; Start 08/19/18 at 09:00 CORETTA ADAMSON Aug 19, 2018 11:16
--- NOTE | 2018-08-19 14:13 | PN ---
Date/Time of Note Date/Time of Note DATE: 08/19/18 TIME: 14:06 Assessment/Plan VTE Prophylaxis Risk score (from N[place])>0 risk: 15 [place] [facility] [place] contraindicated: other (on.) Pharmacological prophylaxis: LMWH, apixaban Lines/Catheters IV Catheter Type (from [facility]): [place] line still needed: No Urinary Cath still in place: No Reason Cath still needed: urinary retention Assessment/Plan Assessment/Plan 1. Ischemic heart disease angina three-vessel coronary a. disease.s/p CABG x5 08/13/18: WINN to LAD, SVG to ramus sequence to obtuse marginal artery, SVG to PDA, SVG to left ventricular extension branch. Difficult case per Dr. Howell with poor targets.Vein harvesting and epiaortic scanning of the ascending aorta.CAD: s/p multiple prior PCIs. Cath 08/11/18 with multivessel disease. 2. Hypertension with congestive heart failure diastolic- improved. Now euvolemic. 3. Diabetes mellitus type 2 blood sugar better controlled. On Iv insulin. 4. History of cholecystitis and pancreatitis 5. Acute on chronic kidney disease with baseline creatinine being 1.6 up to 3.5 came down to 2.05 now. Improved after hydration,now mildly dehydrated; 6. Dyslipidemia better controlled 7. History of nasal bleeding recurrent- stable. 8. Morbid obesity with snoring and apnea and daytime sleepiness 9. BPH with nocturia 10. Low back pain with radiculopathy 11. 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 Status post cataract ectomy 13. Diabetic nephropathy retinopathy and angiopathy and neuropathy. 14. Constipation- improved. 15. Grief reaction after the of her 16. Gastroesophageal reflux disease 17. Deep venous thrombosis of the left saphenous vein, 2-3 months ago;was on Eliquis 5 mg twice daily, stopped: since 08/11/2018. 18. Gastritis 19. COPD. Quit smoking 10years ago.Successfully extubated with 02sat now 95% with persistent cough. 20. History of nephrolithiasis. 21. Drop of hematocrit; s/p 2 units of prbc tx. stable. 22. Drop of albumone and total protein and mild elevation of lft's. Result Diagram: Result Diagram: 08/19/18 0740 08/19/18 0740 Results 24hrs Laboratory Tests Test 08/18/18 17:25 08/18/18 21:59 08/19/18 02:37 08/19/18 05:22 Bedside Glucose 176 324 H 163 151 Test 08/19/18 07:40 08/19/18 07:57 08/19/18 12:15 White Blood Count 8.1 Red Blood Count 3.33 L Hemoglobin 9.6 L Hematocrit 30.8 L Mean Corpuscular 92.5 Volume Mean Corpuscular 28.8 L Hemoglobin Mean Corpuscular 31.2 L Hemoglobin Concent Red Cell 14.3 Distribution Width Platelet Count 153 Mean Platelet Volume 11.7 H Immature 0.700 H Granulocytes % Neutrophils % 61.1 Lymphocytes % 18.6 Monocytes % 12.1 H Eosinophils % 7.1 H Basophils % 0.4 Nucleated Red Blood 0.0 Cells % Immature 0.060 H Granulocytes # Neutrophils # 5.0 Lymphocytes # 1.5 Monocytes # 1.0 H Eosinophils # 0.6 H Basophils # 0.0 Nucleated Red Blood 0.0 Cells # Sodium Level 139 Potassium Level 3.6 Chloride Level 98 Carbon Dioxide Level 31 Anion Gap 10 Blood Urea Nitrogen 61 H Creatinine 2.05 H Est Glomerular Filtrat Rate mL/min Glucose Level 152 Calcium Level 8.7 Magnesium Level 1.9 Iron Level 25 L Total Iron Binding 222 L Capacity Percent Iron 11 L Saturation Total Bilirubin 0.8 Direct Bilirubin 0.00 Indirect Bilirubin 0.8 Aspartate Amino 50 H Transf (AST/SGOT) Alanine 28 Aminotransferase (AL T/SGPT) Alkaline Phosphatase 56 Total Protein 6.6 Albumin 3.4 Globulin 3.20 Albumin/Globulin 1.06 Ratio Bedside Glucose 157 200 Subjective 24 Hr Interval Summary Free Text/Dictation Severe weakness; when ambulating down. No pain. When I am moving there is a severe pain. The pain is getting worse while coughing. Severe constipation. Difficulty to hold the urine it is irritating there is a burning sensation. Constitutional: no complaints, improved, disoriented, poor po, requiring O2; No chills, No diaphoresis, No febrile, No requiring IVF, No other Eyes: No no complaints, No pain, No discharge, No redness, No visual change, No other ENT: congestion, dysphagia; No no complaints, No bleeding, No pain, No discharge, No sore throat, No other Respiratory: cough, pleuritic pain, shortness of breath; No no complaints, No pain, No sputum, No wheezing, No other Cardiovascular: chest pain; No no complaints, No edema, No lightheadedness, No orthopenea, No palpitations, No paroxysmal nocturnal dyspnea, No other Gastrointestinal: No no complaints, No pain, No blood, No constipation, No decreased appetite, No diarrhea, No flatus, No nausea, No passing stool, No vomiting, No other Genitourinary: dysuria, hematuria; No no complaints, No bleeding, No discharge, No flank pain, No other Musculoskeletal: back pain, bone/joint pain, neck pain Skin: bruising, pruritis Neurologic: confusion, dizziness Endocrine: No no complaints, No polyuria, No polydypsia, No dry skin, No temp intolerance, No other Psychological: no complaints, anxiety, confusion; No nl mood/affect, No depression, No suicidal, No other Exam/Review of Systems Exam Vitals Vital Signs Date Temp Pulse Resp B/P (MAP) Pulse Ox O2 O2 Flow FiO2 Time Delivery Rate 08/19/18 67 20 98 Nasal 3.0 13:09 Cannula 08/19/18 98.3 104/54 11:13 (71) 08/19/18 32 03:14 Intake and Output 08/18/18 08/18/18 08/19/18 1515:00 23:00 07:00 IntakeIntake Total 720 ml 600 ml 200 ml OutputOutput Total 290 ml 300 ml 300 ml BalanceBalance 430 ml 300 ml -100 ml Constitutional: alert, oriented, well developed, distress, frail; No non-verbal, No obese, No other Psych: No no complaints, No nl mood/affect, No anxiety, No confusion, No depression, No suicidal, No other Head: normocephalic, atraumatic; No lacerations, No hematomas, No other Eyes: EOMI, nl lids; No nl conjunctiva, No nl sclera, No PERRL, No icteric, No fundi, disc, No other ENMT: nl nasal mucosa & septum; No nl external ears & nose, No nl lips & teeth, No mucosa pink and moist, No intubated, No tympanic membranes, No other Neck: jvd, bruits, thyromegaly, nuchal rigidity; No supple, No non-tender, No masses, No other Respiratory: clear to auscultation, congested cough; No normal air movement, No crackles/rales, No diminished breath sounds, No intercostal retraction, No labored breathing, No respirations, No tactile fremitus, No wheezing, No other Cardiovascular: regular rate and rhythm, edema, irregular rhythm, systolic murmur, other (Tender sternal area bilaterally.); No nl pulses, No bruits, No diastolic murmur, No gallop, No jugular venous distention (JVD), No murmurs/extra sounds, No rub, No S3, No S4 Gastrointestinal: soft, bowel sounds, rebound or guarding; No nl liver, spleen, No non-tender, No ascites, No distended, No firm, No hepatomegaly, No mass, No splenomegaly, No surgical scars, No tender, No other Genitourinary - Male: nl penis, nl scrotum Musculoskeletal: joint tenderness; No nl extremities to inspection, No nl gait and stance, No muscle tone, No muscle weakness, No range of motion, No spine non-tender, No swelling, No other Extremities: No normal pulses, No calf tenderness, No cyanosis, No clubbing, No edema, No pitting pedal edema, No palpable cord, No tenderness, No other 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: nl mental status, nl speech, lethargic, numbness (Memory impairment.); No [employer] II-XII intact, No nl strength, No confused, No DTR's symmetric, No focal weakness, No reflexes, No unresponsive, No other Results Results 24hrs Laboratory Tests Test 08/18/18 17:25 08/18/18 21:59 08/19/18 02:37 08/19/18 05:22 Bedside Glucose 176 324 H 163 151 Test 08/19/18 07:40 08/19/18 07:57 08/19/18 12:15 White Blood Count 8.1 Red Blood Count 3.33 L Hemoglobin 9.6 L Hematocrit 30.8 L Mean Corpuscular 92.5 Volume Mean Corpuscular 28.8 L Hemoglobin Mean Corpuscular 31.2 L Hemoglobin Concent Red Cell 14.3 Distribution Width Platelet Count 153 Mean Platelet Volume 11.7 H Immature 0.700 H Granulocytes % Neutrophils % 61.1 Lymphocytes % 18.6 Monocytes % 12.1 H Eosinophils % 7.1 H Basophils % 0.4 Nucleated Red Blood 0.0 Cells % Immature 0.060 H Granulocytes # Neutrophils # 5.0 Lymphocytes # 1.5 Monocytes # 1.0 H Eosinophils # 0.6 H Basophils # 0.0 Nucleated Red Blood 0.0 Cells # Sodium Level 139 Potassium Level 3.6 Chloride Level 98 Carbon Dioxide Level 31 Anion Gap 10 Blood Urea Nitrogen 61 H Creatinine 2.05 H Est Glomerular Filtrat Rate mL/min Glucose Level 152 Calcium Level 8.7 Magnesium Level 1.9 Iron Level 25 L Total Iron Binding 222 L Capacity Percent Iron 11 L Saturation Total Bilirubin 0.8 Direct Bilirubin 0.00 Indirect Bilirubin 0.8 Aspartate Amino 50 H Transf (AST/SGOT) Alanine 28 Aminotransferase (AL T/SGPT) Alkaline Phosphatase 56 Total Protein 6.6 Albumin 3.4 Globulin 3.20 Albumin/Globulin 1.06 Ratio Bedside Glucose 157 200 Medications Medication Current Medications Atorvastatin Calcium (Lipitor) 40 mg HS PO Last administered on 08/18/18 21:09; Admin Dose 40 MG; Start 08/11/18 at 21:00 Hydralazine HCl (Apresoline) 10 mg Q4H PRN IV SBP >170 Last administered on 08/15/18 10:52; Admin Dose 10 MG; Start 08/11/18 at 12:00 Hydromorphone HCl (Dilaudid) 0.2 mg Q15M PRN IV PAIN LEVEL 1-5 Last administered on 08/17/18 01:43; Admin Dose 0.2 MG; Start 08/13/18 at 15:30 Hydromorphone HCl (Dilaudid) 0.4 mg Q15M PRN IV PAIN LEVEL 6-10 Last administered on 08/15/18 12:50; Admin Dose 0.4 MG; Start 08/13/18 at 15:30 Oxycodone/ Acetaminophen (Percocet (5/ 325)) 1 tab Q3H PRN PO PAIN LEVEL 1-5 Last administered on 08/19/18 07:59; Admin Dose 1 TAB; Start 08/13/18 at 15:30 Ondansetron HCl (Zofran Inj) 4 mg Q6H PRN IV NAUSEA AND/OR VOMITING; Start 08/13/18 at 15:30 Acetaminophen (Tylenol Tab) 650 mg Q3H PRN PO ELEVATED TEMPERATURE Last administered on 08/16/18 13:57; Admin Dose 650 MG; Start 08/13/18 at 15:30 Albumin Human 250 ml @ 500 mls/hr PRN PRN IV CVP< 8, OR SBP<90 Last administered on 08/13/18 23:45; Admin Dose 500 MLS/HR; Start 08/13/18 at 17:00 Clopidogrel Bisulfate (plaVIX) 75 mg DAILY NGT Last administered on 08/19/18 09:41; Admin Dose 75 MG; Start 08/14/18 at 09:00 Amlodipine Besylate (Norvasc) 5 mg DAILY PO Last administered on 08/19/18 09:42; Admin Dose 5 MG; Start 08/16/18 at 09:30 Apixaban (Eliquis) 5 mg BID PO Last administered on 08/19/18 09:41; Admin Dose 5 MG; Start 08/16/18 at 10:00 Carvedilol (Coreg) 12.5 mg BID PO Last administered on 08/19/18 09:41; Admin Dose 12.5 MG; Start 08/16/18 at 10:00 Levalbuterol (Xopenex Neb) 1.25 mg Q6H RESP THERAPY HHN Last administered on 08/19/18 13:09; Admin Dose 1.25 MG; Start 08/16/18 at 20:00 Ipratropium [place] (Atrovent 0.02% (Neb)) 0.5 mg Q6H RESP THERAPY HHN Last administered on 08/19/18 13:09; Admin Dose 0.5 MG; Start 08/17/18 at 02:00 Diagnostic Test (Pha) (Accu-Chek) 1 ea 02 XX ; Start 08/18/18 at 02:00 Insulin Aspart (Novolog Insulin Pen) NOVOLOG *MODERATE* ALGORI... Q4 SC Last administered on 08/19/18 12:23; Admin Dose 4 UNIT; Start 08/17/18 at 13:00 Miscellaneous Information 1 ea NOTE XX ; Start 08/17/18 at 12:30 Glucose (Glutose) 15 gm Q15M PRN PO DECREASED GLUCOSE; Start 08/17/18 at 12:30 Glucose (Glutose) 22.5 gm Q15M PRN PO DECREASED GLUCOSE; Start 08/17/18 at 12:30 Dextrose (D50w Syringe) 25 ml Q15M PRN IV DECREASED GLUCOSE; Start 08/17/18 at 12:30 Dextrose (D50w Syringe) 50 ml Q15M PRN IV DECREASED GLUCOSE; Start 08/17/18 at 12:30 Glucagon (Glucagen) 1 mg Q15M PRN IM DECREASED GLUCOSE; Start 08/17/18 at 12:30 Glucose (Glutose) 15 gm Q15M PRN BUCCAL DECREASED GLUCOSE; Start 08/17/18 at 12:30 Furosemide (Lasix) 40 mg DAILY PO Last administered on 08/19/18at 09:42; Admin Dose 40 MG; Start 08/18/18 at 09:00 Insulin Glargine (Lantus) 28 units 2300 SC Last administered on 08/19/18at 00:00; Admin Dose 28 UNITS; Start 08/18/18 at 23:00 Famotidine (Pepcid) 20 mg DAILY PO Last administered on 08/19/18at 09:42; Admin Dose 20 MG; Start 08/19/18 at 09:00 NERIS BROTHERS MD Aug 19, 2018 14:13
--- NOTE | 2018-08-19 16:41 | CONS ---
Assessment/Plan Assessment/Plan Assessment/Plan (Daily) 1. acute kidney injury vs possible baseline CKD II due to ishcemic ATN + Hemodynamics 2. 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 H/o HTN 4. H/o HL 5. H/o DM II 6. H/o CAD with previous stent placement 7. Anemia of chronic disease with iron deficiency Plan: BUN/Cr improved to 61/2.05- other electrolytes stable, continue Lasix 40mg po daily, amlodipine 5 mg po daily Ferrlecit 125 mg IV daily x 5 doses will follow up , adequate urine output Consultation Date/Type/Reason Admit Date/Time Aug 11, 2018 at 09:20 Initial Consult Date 08/11/18 Type of Consult NEPHROLOGY Requesting Provider: NERIS BROTHERS MD Date/Time of Note DATE: 08/19/18 TIME: 16:41 Exam/Review of Systems Exam Vitals Vital Signs Date Temp Pulse Resp B/P (MAP) Pulse Ox O2 O2 Flow FiO2 Time Delivery Rate 08/19/18 58 16:00 08/19/18 98.2 22 114/58 95 15:33 (76) 08/19/18 Nasal 3.0 13:09 Cannula 08/19/18 32 03:14 Intake and Output 08/18/18 08/18/18 08/19/18 1515:00 23:00 07:00 IntakeIntake Total 720 ml 600 ml 200 ml OutputOutput Total 290 ml 300 ml 300 ml BalanceBalance 430 ml 300 ml -100 ml Exam Constitutional: alert, awake no acute distress Respiratory: clear to auscultation, normal air movement, diminished breath sounds Cardiovascular: regular rate and rhythm, nl pulses, + midline Chest scar healthy Gastrointestinal: soft, non-tender Musculoskeletal: nl extremities to inspection Extremities: normal pulses , Dressign in place, + mancia catheter in place 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: [employer] II-XII intact, nl mental status, nl speech, nl strength Results Result Diagram: 08/19/18 0740 08/19/18 0740 Results 24hrs Laboratory Tests Test 08/18/18 17:25 08/18/18 21:59 08/19/18 02:37 08/19/18 05:22 Bedside Glucose 176 324 H 163 151 Test 08/19/18 07:40 08/19/18 07:57 08/19/18 12:15 White Blood Count 8.1 Red Blood Count 3.33 L Hemoglobin 9.6 L Hematocrit 30.8 L Mean Corpuscular 92.5 Volume Mean Corpuscular 28.8 L Hemoglobin Mean Corpuscular 31.2 L Hemoglobin Concent Red Cell 14.3 Distribution Width Platelet Count 153 Mean Platelet Volume 11.7 H Immature 0.700 H Granulocytes % Neutrophils % 61.1 Lymphocytes % 18.6 Monocytes % 12.1 H Eosinophils % 7.1 H Basophils % 0.4 Nucleated Red Blood 0.0 Cells % Immature 0.060 H Granulocytes # Neutrophils # 5.0 Lymphocytes # 1.5 Monocytes # 1.0 H Eosinophils # 0.6 H Basophils # 0.0 Nucleated Red Blood 0.0 Cells # Sodium Level 139 Potassium Level 3.6 Chloride Level 98 Carbon Dioxide Level 31 Anion Gap 10 Blood Urea Nitrogen 61 H Creatinine 2.05 H Est Glomerular Filtrat Rate mL/min Glucose Level 152 Calcium Level 8.7 Magnesium Level 1.9 Iron Level 25 L Total Iron Binding 222 L Capacity Percent Iron 11 L Saturation Total Bilirubin 0.8 Direct Bilirubin 0.00 Indirect Bilirubin 0.8 Aspartate Amino 50 H Transf (AST/SGOT) Alanine 28 Aminotransferase (AL T/SGPT) Alkaline Phosphatase 56 Total Protein 6.6 Albumin 3.4 Globulin 3.20 Albumin/Globulin 1.06 Ratio Bedside Glucose 157 200 Medications Medication Current Medications Atorvastatin Calcium (Lipitor) 40 mg HS PO Last administered on 08/18/18at 21 :09; Admin Dose 40 MG; Start 08/11/18 at 21:00 Hydralazine HCl (Apresoline) 10 mg Q4H PRN IV SBP >170 Last administered on 08/15/18at 10:52; Admin Dose 10 MG; Start 08/11/18 at 12:00 Hydromorphone HCl (Dilaudid) 0.2 mg Q15M PRN IV PAIN LEVEL 1-5 Last administered on 08/17/18at 01:43; Admin Dose 0.2 MG; Start 08/13/18 at 15:30 Hydromorphone HCl (Dilaudid) 0.4 mg Q15M PRN IV PAIN LEVEL 6-10 Last ad ministered on 08/15/18at 12:50; Admin Dose 0.4 MG; Start 08/13/18 at 15:30 Oxycodone/ Acetaminophen (Percocet (5/ 325)) 1 tab Q3H PRN PO PAIN LEVEL 1-5 Last administered on 08/19/18 07:59; Admin Dose 1 TAB; Start 08/13/18 at 15:30 Ondansetron HCl (Zofran Inj) 4 mg Q6H PRN IV NAUSEA AND/OR VOMITING; Start 08/13/18 at 15:30 Acetaminophen (Tylenol Tab) 650 mg Q3H PRN PO ELEVATED TEMPERATURE Last a dministered on 08/16/18 13:57; Admin Dose 650 MG; Start 08/13/18 at 15:30 Albumin Human 250 ml @ 500 mls/hr PRN PRN IV CVP< 8, OR SBP<90 Last administered on 08/13/18 23:45; Admin Dose 500 MLS/HR; Start 08/13/18 at 17:00 Clopidogrel Bisulfate (plaVIX) 75 mg DAILY NGT Last administered on 08/19/18 09:41; Admin Dose 75 MG; Start 08/14/18 at 09:00 Amlodipine Besylate (Norvasc) 5 mg DAILY PO Last administered on 08/19/18 09:42; Admin Dose 5 MG; Start 08/16/18 at 09:30 Apixaban (Eliquis) 5 mg BID PO Last administered on 08/19/18 09:41; Admin Dose 5 MG; Start 08/16/18 at 10:00 Carvedilol (Coreg) 12.5 mg BID PO Last administered on 08/19/18 09:41; Admin Dose 12.5 MG; Start 08/16/18 at 10:00 Levalbuterol (Xopenex Neb) 1.25 mg Q6H RESP THERAPY HHN Last administered on 08/19/18 13:09; Admin Dose 1.25 MG; Start 08/16/18 at 20:00 Ipratropium [place] (Atrovent 0.02% (Neb)) 0.5 mg Q6H RESP THERAPY HHN Last administered on 08/19/18 13:09; Admin Dose 0.5 MG; Start 08/17/18 at 02:00 Diagnostic Test (Pha) (Accu-Chek) 1 ea 02 XX ; Start 08/18/18 at 02:00 Miscellaneous Information 1 ea NOTE XX ; Start 08/17/18 at 12:30 Glucose (Glutose) 15 gm Q15M PRN PO DECREASED GLUCOSE; Start 08/17/18 at 12:30 Glucose (Glutose) 22.5 gm Q15M PRN PO DECREASED GLUCOSE; Start 08/17/18 at 12:30 Dextrose (D50w Syringe) 25 ml Q15M PRN IV DECREASED GLUCOSE; Start 08/17/18 at 12:30 Dextrose (D50w Syringe) 50 ml Q15M PRN IV DECREASED GLUCOSE; Start 08/17/18 at 12:30 Glucagon (Glucagen) 1 mg Q15M PRN IM DECREASED GLUCOSE; Start 08/17/18 at 12:30 Glucose (Glutose) 15 gm Q15M PRN BUCCAL DECREASED GLUCOSE; Start 08/17/18 at 12:30 Furosemide (Lasix) 40 mg DAILY PO Last administered on 08/19/18at 09:42; Admin Dose 40 MG; Start 08/18/18 at 09:00 Insulin Glargine (Lantus) 28 units 2300 SC Last administered on 08/19/18at 00:00; Admin Dose 28 UNITS; Start 08/18/18 at 23:00 Famotidine (Pepcid) 20 mg DAILY PO Last administered on 08/19/18at 09:42; Admin Dose 20 MG; Start 08/19/18 at 09:00 Ferric Sodium Gluconate Complex 125 mg/Sodium Chloride 100 ml @ 100 mls/hr DAILY@1300 IVPB ; Start 08/20/18 at 13:00; Stop 08/22/18 at 13:59 Insulin Aspart (Novolog Insulin Pen) NOVOLOG *MODERATE* ALGORI... AC MEALS AND BEDTIME SC ; Start 08/19/18 at 17:25 Insulin Aspart (Novolog Insulin Pen) 10 unit WITH MEALS SC ; Start 08/19/18 at 17:55 DARRYL SOOD MD Aug 19, 2018 16:41
--- NOTE | 2018-08-19 17:15 | CONS ---
Assessment/Plan Assessment/Plan Hospital Course (Demo Recall) Acute on chronic diastolic CHF: ~euvolemic Acute on chronic renal failure: Cr baseline 1.6. Worse after CABG.Now improving to 2.0 Cardiogenic shock: Transient post op, now off inotropic support and CI 2.6 Acute respiratory failure: s/p extubation 08/16 Anemia: from operative blood loss. Required one unit. No active bleeding s/p CABG x5 08/13/18: WINN to LAD, SVG to ramus sequence to obtuse marginal artery, SVG to PDA, SVG to left ventricular extension branch. Difficult case per Dr. Howell with poor targets. CAD: s/p multiple prior PCIs. Cath 08/11/18 with multivessel disease. s/p CABG above Recent left femoral DVT: on Eliquis as outpt. DM HT HL -lasix 40mg PO daily -Eliquis 5mg BID -continue plavix -coreg 12.5mg BID -amlodipine 5mg -lipitor 40mg Consultation Date/Type/Reason Admit Date/Time Aug 11, 2018 at 09:20 Initial Consult Date 08/11/18 Type of Consult Cardiology Requesting Provider: NERIS BROTHERS MD Date/Time of Note DATE: 08/19/18 TIME: 17:12 24 HR Interval Summary Free Text/Dictation No events. Tried working with PT but had chest wall pain. No SOB. Cr improving Exam/Review of Systems Vital Signs Vitals Vital Signs Date Temp Pulse Resp B/P (MAP) Pulse Ox O2 O2 Flow FiO2 Time Delivery Rate 08/19/18 58 16:00 08/19/18 98.2 22 114/58 95 15:33 (76) 08/19/18 Nasal 3.0 13:09 Cannula 08/19/18 32 03:14 Intake and Output 08/18/18 08/18/18 08/19/18 1515:00 23:00 07:00 IntakeIntake Total 720 ml 600 ml 200 ml OutputOutput Total 290 ml 300 ml 300 ml BalanceBalance 430 ml 300 ml -100 ml Exam Constitutional: alert, oriented Psych: no complaints, nl mood/affect Head: normocephalic, atraumatic Neck: No jvd Respiratory: diminished breath sounds; No clear to auscultation Cardiovascular: regular rate and rhythm, edema (trace) Gastrointestinal: soft, non-tender; No distended 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: nl mental status, nl speech Labs Result Diagram: 08/19/18 0740 08/19/18 0740 Results 24hrs Laboratory Tests Test 08/18/18 17:25 08/18/18 21:59 08/19/18 02:37 08/19/18 05:22 Bedside Glucose 176 324 H 163 151 Test 08/19/18 07:40 08/19/18 07:57 08/19/18 12:15 White Blood Count 8.1 Red Blood Count 3.33 L Hemoglobin 9.6 L Hematocrit 30.8 L Mean Corpuscular 92.5 Volume Mean Corpuscular 28.8 L Hemoglobin Mean Corpuscular 31.2 L Hemoglobin Concent Red Cell 14.3 Distribution Width Platelet Count 153 Mean Platelet Volume 11.7 H Immature 0.700 H Granulocytes % Neutrophils % 61.1 Lymphocytes % 18.6 Monocytes % 12.1 H Eosinophils % 7.1 H Basophils % 0.4 Nucleated Red Blood 0.0 Cells % Immature 0.060 H Granulocytes # Neutrophils # 5.0 Lymphocytes # 1.5 Monocytes # 1.0 H Eosinophils # 0.6 H Basophils # 0.0 Nucleated Red Blood 0.0 Cells # Sodium Level 139 Potassium Level 3.6 Chloride Level 98 Carbon Dioxide Level 31 Anion Gap 10 Blood Urea Nitrogen 61 H Creatinine 2.05 H Est Glomerular Filtrat Rate mL/min Glucose Level 152 Calcium Level 8.7 Magnesium Level 1.9 Iron Level 25 L Total Iron Binding 222 L Capacity Percent Iron 11 L Saturation Total Bilirubin 0.8 Direct Bilirubin 0.00 Indirect Bilirubin 0.8 Aspartate Amino 50 H Transf (AST/SGOT) Alanine 28 Aminotransferase (AL T/SGPT) Alkaline Phosphatase 56 Total Protein 6.6 Albumin 3.4 Globulin 3.20 Albumin/Globulin 1.06 Ratio Bedside Glucose 157 200 Medications Medications Current Medications Atorvastatin Calcium (Lipitor) 40 mg HS PO Last administered on 08/18/18at 21 :09; Admin Dose 40 MG; Start 08/11/18 at 21:00 Hydralazine HCl (Apresoline) 10 mg Q4H PRN IV SBP >170 Last administered on 08/15/18at 10:52; Admin Dose 10 MG; Start 08/11/18 at 12:00 Hydromorphone HCl (Dilaudid) 0.2 mg Q15M PRN IV PAIN LEVEL 1-5 Last administered on 08/17/18 01:43; Admin Dose 0.2 MG; Start 08/13/18 at 15:30 Hydromorphone HCl (Dilaudid) 0.4 mg Q15M PRN IV PAIN LEVEL 6-10 Last ad ministered on 08/15/18 12:50; Admin Dose 0.4 MG; Start 08/13/18 at 15:30 Oxycodone/ Acetaminophen (Percocet (5/ 325)) 1 tab Q3H PRN PO PAIN LEVEL 1-5 Last administered on 08/19/18 07:59; Admin Dose 1 TAB; Start 08/13/18 at 15:30 Ondansetron HCl (Zofran Inj) 4 mg Q6H PRN IV NAUSEA AND/OR VOMITING; Start 08/13/18 at 15:30 Acetaminophen (Tylenol Tab) 650 mg Q3H PRN PO ELEVATED TEMPERATURE Last a dministered on 08/16/18 13:57; Admin Dose 650 MG; Start 08/13/18 at 15:30 Albumin Human 250 ml @ 500 mls/hr PRN PRN IV CVP< 8, OR SBP<90 Last administered on 08/13/18 23:45; Admin Dose 500 MLS/HR; Start 08/13/18 at 17:00 Clopidogrel Bisulfate (plaVIX) 75 mg DAILY NGT Last administered on 08/19/18 09:41; Admin Dose 75 MG; Start 08/14/18 at 09:00 Amlodipine Besylate (Norvasc) 5 mg DAILY PO Last administered on 08/19/18 09:42; Admin Dose 5 MG; Start 08/16/18 at 09:30 Apixaban (Eliquis) 5 mg BID PO Last administered on 08/19/18 09:41; Admin Dose 5 MG; Start 08/16/18 at 10:00 Carvedilol (Coreg) 12.5 mg BID PO Last administered on 08/19/18 09:41; Admin Dose 12.5 MG; Start 08/16/18 at 10:00 Levalbuterol (Xopenex Neb) 1.25 mg Q6H RESP THERAPY HHN Last administered on 08/19/18 13:09; Admin Dose 1.25 MG; Start 08/16/18 at 20:00 Ipratropium Arnold (Atrovent 0.02% (Neb)) 0.5 mg Q6H RESP THERAPY HHN Last administered on 08/19/18at 13:09; Admin Dose 0.5 MG; Start 08/17/18 at 02:00 Diagnostic Test (Pha) (Accu-Chek) 1 ea 02 XX ; Start 08/18/18 at 02:00 Miscellaneous Information 1 ea NOTE XX ; Start 08/17/18 at 12:30 Glucose (Glutose) 15 gm Q15M PRN PO DECREASED GLUCOSE; Start 08/17/18 at 12:30 Glucose (Glutose) 22.5 gm Q15M PRN PO DECREASED GLUCOSE; Start 08/17/18 at 12:30 Dextrose (D50w Syringe) 25 ml Q15M PRN IV DECREASED GLUCOSE; Start 08/17/18 at 12:30 Dextrose (D50w Syringe) 50 ml Q15M PRN IV DECREASED GLUCOSE; Start 08/17/18 at 12:30 Glucagon (Glucagen) 1 mg Q15M PRN IM DECREASED GLUCOSE; Start 08/17/18 at 12:30 Glucose (Glutose) 15 gm Q15M PRN BUCCAL DECREASED GLUCOSE; Start 08/17/18 at 12:30 Furosemide (Lasix) 40 mg DAILY PO Last administered on 08/19/18at 09:42; Admin Dose 40 MG; Start 08/18/18 at 09:00 Insulin Glargine (Lantus) 28 units 2300 SC Last administered on 08/19/18at 00:00; Admin Dose 28 UNITS; Start 08/18/18 at 23:00 Famotidine (Pepcid) 20 mg DAILY PO Last administered on 08/19/18at 09:42; Admin Dose 20 MG; Start 08/19/18 at 09:00 Ferric Sodium Gluconate Complex 125 mg/Sodium Chloride 100 ml @ 100 mls/hr DAILY@1300 IVPB ; Start 08/20/18 at 13:00; Stop 08/22/18 at 13:59 Insulin Aspart (Novolog Insulin Pen) NOVOLOG *MODERATE* ALGORI... AC MEALS AND BEDTIME SC ; Start 08/19/18 at 17:25 Insulin Aspart (Novolog Insulin Pen) 10 unit WITH MEALS SC ; Start 08/19/18 at 17:55 ALONDRA GILBERT Aug 19, 2018 17:15
[2018-08-19] MEDS: ATORVASTATIN 40 MG TAB PO SCH (21:46)
[2018-08-19] MEDS: INSULIN GLARGINE [LANTus] (100 UNITS/ML) SYG SC SCH ×2 (23:45)
[2018-08-20] VITALS (10 sets, daily range): BP systolic 121–131; BP diastolic 60–66; PULSE 61–79; RESP 18–20
[2018-08-20] MEDS: ACCU-CHEK XX SCH (02:00)
[2018-08-20] MEDS: IPRATROPIUM (NEB) 0.5 MG/2.5 ML AMP HHN SCH ×4 (02:11→19:11)
[2018-08-20] MEDS: LEVALBUTEROL (NEB) 1.25 MG/0.5 ML AMP HHN SCH ×4 (02:11→19:11)
[2018-08-20] MEDS: OXYCODONE/ACETAMINOPHEN (5/325) TAB PO PRN ×2 (03:33→10:55)
[2018-08-20] MEDS: INSULIN ASPART [NOVOLOG] 3 ML PEN SC SCH ×7 (07:50→20:09)
[2018-08-20] MEDS ORDERED: POTASSIUM CHLORIDE 20 MEQ POWDER FOR ORAL SOLN PO ONE (08:30)
[2018-08-20] MEDS: CLOPIDOGREL 75 MG TAB NGT SCH (08:34)
[2018-08-20] MEDS: APIXABAN 5 MG TABLET PO SCH ×2 (08:34→20:09)
[2018-08-20] MEDS: AMLODIPINE 5 MG TAB PO SCH (08:34)
[2018-08-20] MEDS: FUROSEMIDE 40 MG TAB PO SCH (08:34)
[2018-08-20] MEDS: FAMOTIDINE 20 MG TAB PO SCH (08:35)
--- NOTE | 2018-08-20 08:41 | CONS ---
Assessment/Plan Assessment/Plan Hospital Course (Demo Recall) Acute on chronic diastolic CHF: ~euvolemic Acute on chronic renal failure: Cr baseline 1.6. Worse after CABG.Now improving to 2.0 Cardiogenic shock: Transient post op, now off inotropic support and CI 2.6 Acute respiratory failure: s/p extubation 08/16 Anemia: from operative blood loss. Required one unit. No active bleeding s/p CABG x5 08/13/18: WINN to LAD, SVG to ramus sequence to obtuse marginal artery, SVG to PDA, SVG to left ventricular extension branch. Difficult case per Dr. Howell with poor targets. CAD: s/p multiple prior PCIs. Cath 08/11/18 with multivessel disease. s/p CABG above Recent left femoral DVT: on Eliquis as outpt. DM HT HL -lactulose -PT -lasix 40mg PO daily -Eliquis 5mg BID -continue plavix -coreg 12.5mg BID -amlodipine 5mg -lipitor 40mg Consultation Date/Type/Reason Admit Date/Time Aug 11, 2018 at 09:20 Initial Consult Date 08/11/18 Type of Consult Cardiology Requesting Provider: NERIS BROTHERS MD Date/Time of Note DATE: 08/20/18 TIME: 08:39 24 HR Interval Summary Free Text/Dictation No events. Still with chest wall pain. Has not had a BM in multiple days. Exam/Review of Systems Vital Signs Vitals Vital Signs Date Temp Pulse Resp B/P (MAP) Pulse Ox O2 O2 Flow FiO2 Time Delivery Rate 08/20/18 62 08:03 08/20/18 97 3.0 07:46 08/20/18 20 Nasal 07:46 Cannula 08/20/18 98.1 127/66 07:36 (86) 08/20/18 32 02:19 Intake and Output 08/19/18 08/19/18 08/20/18 1515:00 23:00 07:00 IntakeIntake Total 1000 ml OutputOutput Total 500 ml BalanceBalance 500 ml Exam Constitutional: alert, oriented Psych: no complaints, nl mood/affect Head: normocephalic, atraumatic Neck: supple; No jvd Respiratory: crackles/rales, diminished breath sounds; No clear to auscultation Cardiovascular: regular rate and rhythm, edema (trace) Gastrointestinal: soft, non-tender; No distended 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: nl mental status, nl speech Labs Result Diagram: 08/19/18 0740 08/20/18 0602 Results 24hrs Laboratory Tests Test 08/19/18 12:15 08/19/18 17:31 08/19/18 20:49 08/20/18 06:02 Bedside Glucose 200 176 180 Sodium Level 136 Potassium Level 3.5 Chloride Level 97 Carbon Dioxide Level 30 Anion Gap 9 Blood Urea Nitrogen 57 H Creatinine 1.95 H Est Glomerular Filtrat Rate mL/min Glucose Level 143 Calcium Level 8.7 Total Bilirubin 0.7 Direct Bilirubin 0.00 Indirect Bilirubin 0.7 Aspartate Amino 45 Transf (AST/SGOT) Alanine 32 Aminotransferase (ALT /SGPT) Alkaline Phosphatase 58 Total Protein 6.5 Albumin 3.3 Globulin 3.20 Albumin/Globulin 1.03 Ratio Test 08/20/18 07:45 Bedside Glucose 129 Medications Medications Current Medications Atorvastatin Calcium (Lipitor) 40 mg HS PO Last administered on 08/19/18at 21:46; Admin Dose 40 MG; Start 08/11/18 at 21:00 Hydralazine HCl (Apresoline) 10 mg Q4H PRN IV SBP >170 Last administered on 08/15/18at 10:52; Admin Dose 10 MG; Start 08/11/18 at 12:00 Hydromorphone HCl (Dilaudid) 0.2 mg Q15M PRN IV PAIN LEVEL 1-5 Last administered on 08/17/18at 01:43; Admin Dose 0.2 MG; Start 08/13/18 at 15:30 Hydromorphone HCl (Dilaudid) 0.4 mg Q15M PRN IV PAIN LEVEL 6-10 Last administ ered on 08/15/18at 12:50; Admin Dose 0.4 MG; Start 08/13/18 at 15:30 Oxycodone/ Acetaminophen (Percocet (5/ 325)) 1 tab Q3H PRN PO PAIN LEVEL 1-5 Last administered on 08/20/18at 03:33; Admin Dose 1 TAB; Start 08/13/18 at 15:30 Ondansetron HCl (Zofran Inj) 4 mg Q6H PRN IV NAUSEA AND/OR VOMITING; Start 08/13/18 at 15:30 Acetaminophen (Tylenol Tab) 650 mg Q3H PRN PO ELEVATED TEMPERATURE Last administered on 08/16/18 13:57; Admin Dose 650 MG; Start 08/13/18 at 15:30 Albumin Human 250 ml @ 500 mls/hr PRN PRN IV CVP< 8, OR SBP<90 Last administered on 08/13/18 23:45; Admin Dose 500 MLS/HR; Start 08/13/18 at 17:00 Clopidogrel Bisulfate (plaVIX) 75 mg DAILY NGT Last administered on 08/19/18 09:41; Admin Dose 75 MG; Start 08/14/18 at 09:00 Amlodipine Besylate (Norvasc) 5 mg DAILY PO Last administered on 08/19/18 09:42; Admin Dose 5 MG; Start 08/16/18 at 09:30 Apixaban (Eliquis) 5 mg BID PO Last administered on 08/19/18 21:28; Admin Dose 5 MG; Start 08/16/18 at 10:00 Carvedilol (Coreg) 12.5 mg BID PO Last administered on 08/19/18 21:30; Admin Dose 12.5 MG; Start 08/16/18 at 10:00 Levalbuterol (Xopenex Neb) 1.25 mg Q6H RESP THERAPY HHN Last administered on 08/20/18 07:45; Admin Dose 1.25 MG; Start 08/16/18 at 20:00 Ipratropium Mckenna (Atrovent 0.02% (Neb)) 0.5 mg Q6H RESP THERAPY HHN Last administered on 08/20/18 07:45; Admin Dose 0.5 MG; Start 08/17/18 at 02:00 Diagnostic Test (Pha) (Accu-Chek) 1 ea 02 XX ; Start 08/18/18 at 02:00 Miscellaneous Information 1 ea NOTE XX ; Start 08/17/18 at 12:30 Glucose (Glutose) 15 gm Q15M PRN PO DECREASED GLUCOSE; Start 08/17/18 at 12:30 Glucose (Glutose) 22.5 gm Q15M PRN PO DECREASED GLUCOSE; Start 08/17/18 at 12:30 Dextrose (D50w Syringe) 25 ml Q15M PRN IV DECREASED GLUCOSE; Start 08/17/18 at 12:30 Dextrose (D50w Syringe) 50 ml Q15M PRN IV DECREASED GLUCOSE; Start 08/17/18 at 12:30 Glucagon (Glucagen) 1 mg Q15M PRN IM DECREASED GLUCOSE; Start 08/17/18 at 12:30 Glucose (Glutose) 15 gm Q15M PRN BUCCAL DECREASED GLUCOSE; Start 08/17/18 at 12:30 Furosemide (Lasix) 40 mg DAILY PO Last administered on 08/19/18at 09:42; Admin Dose 40 MG; Start 08/18/18 at 09:00 Insulin Glargine (Lantus) 28 units 2300 SC Last administered on 08/19/18at 23:45; Admin Dose 28 UNITS; Start 08/18/18 at 23:00 Famotidine (Pepcid) 20 mg DAILY PO Last administered on 08/19/18at 09:42; Admin Dose 20 MG; Start 08/19/18 at 09:00 Ferric Sodium Gluconate Complex 125 mg/Sodium Chloride 100 ml @ 100 mls/hr DAILY@1300 IVPB ; Start 08/20/18 at 13:00; Stop 08/22/18 at 13:59 Insulin Aspart (Novolog Insulin Pen) 10 unit WITH MEALS SC Last administered on 08/19/18at 17:39; Admin Dose 10 UNIT; Start 08/19/18 at 17:55 Insulin Aspart (Novolog Insulin Pen) NOVOLOG *MODERATE* ALGORITHM WITH MEALS BEDTIME SC ; Start 08/20/18 at 07:55 ALONDRA GILBERT August 20, 2018 08:41
[2018-08-20] MEDS ORDERED: LACTULOSE 30ML CUP PO ONE (09:00)
--- NOTE | 2018-08-20 09:48 | CONS ---
Assessment/Plan Assessment/Plan Assessment/Plan (Daily) Assessment and recommendations; 1. Patient status post CABG status post extubation. Clinical status is markedly improved. 2. History of hypertension and diabetes. 3. Left femoral vein DVT. 4. Remote history of pancreatitis. Continue current supportive care. Consider discharge to rehab center. Consultation Date/Type/Reason Admit Date/Time Aug 11, 2018 at 09:20 Initial Consult Date 08/14/18 Type of Consult Pulmonary/critical care Patient is a 73-year-old male who was admitted for elective CABG surgery. Surgery was uneventful. Patient could not be immediately extubated and was transferred to ICU intubated. By the time I saw him, patient completely awake and responsive appropriately orally intubated and did not appear to be in any distress whatsoever. History has been obtained from medical records. Past medical history; 1. History of hypertension 2. Diabetes. 3. Diabetic nephropathy neuropathy and retinopathy. 4. Depression 5. CHF 6. History of pancreatitis 7. Possibly underlying COPD as well Medications; reviewed. Patient is on insulin drip 9 units/h, milrinone 0.35 mics per kilo gram per minute. Versed 4 mg/h. Other medications were reviewed as well. Allergies; none. Social history; evidently positive for smoking. Family; patient is a . Occupational history not available. Review of systems; very limited review of systems will be obtained. Patient denies any shortness of breath. General exam; elderly male, morbidly obese, orally intubated, awake, currently in no distress. Requesting Provider: NERIS BROTHERS MD Date/Time of Note DATE: 08/20/18 TIME: 09:47 24 HR Interval Summary Free Text/Dictation Patient's condition is stable. Denies any chest pain, shortness of breath, coughing. General exam; elderly male, awake and alert. Currently in no distress. Exam/Review of Systems Exam Vitals Vital Signs Date Temp Pulse Resp B/P (MAP) Pulse Ox O2 O2 Flow FiO2 Time Delivery Rate 08/20/18 Nasal 3.0 08:45 Cannula 08/20/18 62 08:03 08/20/18 97 07:46 08/20/18 20 07:46 08/20/18 98.1 127/66 07:36 (86) 08/20/18 32 02:19 Intake and Output 08/19/18 08/19/18 08/20/18 1515:00 23:00 07:00 IntakeIntake Total 1000 ml OutputOutput Total 500 ml BalanceBalance 500 ml Exam HE ENT exam; supple neck, positive JVD. No lymphadenopathy. Midline trachea. No thyromegaly. Patient has fair dentition. No neck masses. Chest exam; diminished but clear breath sounds. S1-S2 audible, no murmurs. Regular them. Sternal scar is healing well. Abdomen exam; soft, mildly protuberant. Nontender. Bowel sounds audible. Extremity exam; no edema. Pulses 1+. DATA MANAGER exam; no focal deficit. Results Result Diagram: 08/19/18 0740 08/20/18 0602 Results 24hrs Laboratory Tests Test 08/19/18 12:15 08/19/18 17:31 08/19/18 20:49 08/20/18 06:02 Bedside Glucose 200 176 180 Sodium Level 136 Potassium Level 3.5 Chloride Level 97 Carbon Dioxide Level 30 Anion Gap 9 Blood Urea Nitrogen 57 H Creatinine 1.95 H Est Glomerular Filtrat Rate mL/min Glucose Level 143 Calcium Level 8.7 Total Bilirubin 0.7 Direct Bilirubin 0.00 Indirect Bilirubin 0.7 Aspartate Amino 45 Transf (AST/SGOT) Alanine 32 Aminotransferase (ALT /SGPT) Alkaline Phosphatase 58 Total Protein 6.5 Albumin 3.3 Globulin 3.20 Albumin/Globulin 1.03 Ratio Test 08/20/18 07:45 Bedside Glucose 129 Medications Medication Current Medications Atorvastatin Calcium (Lipitor) 40 mg HS PO Last administered on 08/19/18at 21:46; Admin Dose 40 MG; Start 08/11/18 at 21:00 Hydralazine HCl (Apresoline) 10 mg Q4H PRN IV SBP >170 Last administered on 08/15/18at 10:52; Admin Dose 10 MG; Start 08/11/18 at 12:00 Hydromorphone HCl (Dilaudid) 0.2 mg Q15M PRN IV PAIN LEVEL 1-5 Last administered on 08/17/18at 01:43; Admin Dose 0.2 MG; Start 08/13/18 at 15:30 Hydromorphone HCl (Dilaudid) 0.4 mg Q15M PRN IV PAIN LEVEL 6-10 Last administered on 08/15/18at 12:50; Admin Dose 0.4 MG; Start 08/13/18 at 15:30 Oxycodone/ Acetaminophen (Percocet (5/ 325)) 1 tab Q3H PRN PO PAIN LEVEL 1-5 Last administered on 08/20/18 03:33; Admin Dose 1 TAB; Start 08/13/18 at 15:30 Ondansetron HCl (Zofran Inj) 4 mg Q6H PRN IV NAUSEA AND/OR VOMITING; Start 08/13/18 at 15:30 Acetaminophen (Tylenol Tab) 650 mg Q3H PRN PO ELEVATED TEMPERATURE Last administered on 08/16/18 13:57; Admin Dose 650 MG; Start 08/13/18 at 15:30 Albumin Human 250 ml @ 500 mls/hr PRN PRN IV CVP< 8, OR SBP<90 Last administered on 08/13/18 23:45; Admin Dose 500 MLS/HR; Start 08/13/18 at 17:00 Clopidogrel Bisulfate (plaVIX) 75 mg DAILY NGT Last administered on 08/20/18 08:34; Admin Dose 75 MG; Start 08/14/18 at 09:00 Amlodipine Besylate (Norvasc) 5 mg DAILY PO Last administered on 08/20/18 08:34; Admin Dose 5 MG; Start 08/16/18 at 09:30 Apixaban (Eliquis) 5 mg BID PO Last administered on 08/20/18 08:34; Admin Dose 5 MG; Start 08/16/18 at 10:00 Carvedilol (Coreg) 12.5 mg BID PO Last administered on 08/20/18 08:34; Admin Dose 12.5 MG; Start 08/16/18 at 10:00 Levalbuterol (Xopenex Neb) 1.25 mg Q6H RESP THERAPY HHN Last administered on 08/20/18 07:45; Admin Dose 1.25 MG; Start 08/16/18 at 20:00 Ipratropium Bitely (Atrovent 0.02% (Neb)) 0.5 mg Q6H RESP THERAPY HHN Last administered on 08/20/18 07:45; Admin Dose 0.5 MG; Start 08/17/18 at 02:00 Diagnostic Test (Pha) (Accu-Chek) 1 ea 02 XX ; Start 08/18/18 at 02:00 Miscellaneous Information 1 ea NOTE XX ; Start 08/17/18 at 12:30 Glucose (Glutose) 15 gm Q15M PRN PO DECREASED GLUCOSE; Start 08/17/18 at 12:30 Glucose (Glutose) 22.5 gm Q15M PRN PO DECREASED GLUCOSE; Start 08/17/18 at 12:30 Dextrose (D50w Syringe) 25 ml Q15M PRN IV DECREASED GLUCOSE; Start 08/17/18 at 12:30 Dextrose (D50w Syringe) 50 ml Q15M PRN IV DECREASED GLUCOSE; Start 08/17/18 at 12:30 Glucagon (Glucagen) 1 mg Q15M PRN IM DECREASED GLUCOSE; Start 08/17/18 at 12:30 Glucose (Glutose) 15 gm Q15M PRN BUCCAL DECREASED GLUCOSE; Start 08/17/18 at 12:30 Furosemide (Lasix) 40 mg DAILY PO Last administered on 08/20/18at 08:34; Admin Dose 40 MG; Start 08/18/18 at 09:00 Insulin Glargine (Lantus) 28 units 2300 SC Last administered on 08/19/18at 23:45; Admin Dose 28 UNITS; Start 08/18/18 at 23:00 Famotidine (Pepcid) 20 mg DAILY PO Last administered on 08/20/18at 08:35; Admin Dose 20 MG; Start 08/19/18 at 09:00 Ferric Sodium Gluconate Complex 125 mg/Sodium Chloride 100 ml @ 100 mls/hr DAILY@1300 IVPB ; Start 08/20/18 at 13:00; Stop 08/22/18 at 13:59 Insulin Aspart (Novolog Insulin Pen) 10 unit WITH MEALS SC Last administered on 08/20/18at 09:08; Admin Dose 10 UNIT; Start 08/19/18 at 17:55 Insulin Aspart (Novolog Insulin Pen) NOVOLOG *MODERATE* ALGORITHM WITH MEALS BEDTIME SC ; Start 08/20/18 at 07:55 CORETTA ADAMSON August 20, 2018 09:48
--- NOTE | 2018-08-20 10:04 | CONS ---
Assessment/Plan Assessment/Plan Assessment/Plan (Daily) 1. acute kidney injury vs possible baseline CKD II due to ishcemic ATN + Hemodynamics 2. 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 H/o HTN 4. H/o HL 5. H/o DM II 6. H/o CAD with previous stent placement 7. Anemia of chronic disease with iron deficiency Plan: BUN/Cr improved to 57/1.95- other electrolytes stable, continue Lasix 40mg po daily, amlodipine 5 mg po daily Ferrlecit 125 mg IV daily x 5 doses will follow up Consultation Date/Type/Reason Admit Date/Time Aug 11, 2018 at 09:20 Initial Consult Date 08/11/18 Type of Consult NEPHROLOGY Requesting Provider: NERIS BROTHERS MD Date/Time of Note DATE: 08/20/18 TIME: 10:04 Exam/Review of Systems Exam Vitals Vital Signs Date Temp Pulse Resp B/P (MAP) Pulse Ox O2 O2 Flow FiO2 Time Delivery Rate 08/20/18 Nasal 3.0 08:45 Cannula 08/20/18 62 08:03 08/20/18 97 07:46 08/20/18 20 07:46 08/20/18 98.1 127/66 07:36 (86) 08/20/18 32 02:19 Intake and Output 08/19/18 08/19/18 08/20/18 1414:59 22:59 06:59 IntakeIntake Total 1000 ml OutputOutput Total 500 ml BalanceBalance 500 ml Exam Constitutional: alert, awake no acute distress Respiratory: clear to auscultation, normal air movement, diminished breath sounds Cardiovascular: regular rate and rhythm, nl pulses, + midline Chest scar healthy Gastrointestinal: soft, non-tender Musculoskeletal: nl extremities to inspection Extremities: normal pulses , Dressign in place, 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: DEATH CLAIM CLERK II-XII intact, nl mental status, nl speech, nl strength Results Result Diagram: 08/19/18 0740 08/20/18 0602 Results 24hrs Laboratory Tests Test 08/19/18 12:15 08/19/18 17:31 08/19/18 20:49 08/20/18 06:02 Bedside Glucose 200 176 180 Sodium Level 136 Potassium Level 3.5 Chloride Level 97 Carbon Dioxide Level 30 Anion Gap 9 Blood Urea Nitrogen 57 H Creatinine 1.95 H Est Glomerular Filtrat Rate mL/min Glucose Level 143 Calcium Level 8.7 Total Bilirubin 0.7 Direct Bilirubin 0.00 Indirect Bilirubin 0.7 Aspartate Amino 45 Transf (AST/SGOT) Alanine 32 Aminotransferase (ALT /SGPT) Alkaline Phosphatase 58 Total Protein 6.5 Albumin 3.3 Globulin 3.20 Albumin/Globulin 1.03 Ratio Test 08/20/18 07:45 Bedside Glucose 129 Medications Medication Current Medications Atorvastatin Calcium (Lipitor) 40 mg HS PO Last administered on 08/19/18 21:46; Admin Dose 40 MG; Start 08/11/18 at 21:00 Hydralazine HCl (Apresoline) 10 mg Q4H PRN IV SBP >170 Last administered on 08/15/18 10:52; Admin Dose 10 MG; Start 08/11/18 at 12:00 Hydromorphone HCl (Dilaudid) 0.2 mg Q15M PRN IV PAIN LEVEL 1-5 Last administered on 08/17/18 01:43; Admin Dose 0.2 MG; Start 08/13/18 at 15:30 Hydromorphone HCl (Dilaudid) 0.4 mg Q15M PRN IV PAIN LEVEL 6-10 Last administered on 08/15/18 12:50; Admin Dose 0.4 MG; Start 08/13/18 at 15:30 Oxycodone/ Acetaminophen (Percocet (5/ 325)) 1 tab Q3H PRN PO PAIN LEVEL 1-5 Last administered on 08/20/18 03:33; Admin Dose 1 TAB; Start 08/13/18 at 15:30 Ondansetron HCl (Zofran Inj) 4 mg Q6H PRN IV NAUSEA AND/OR VOMITING; Start 08/13/18 at 15:30 Acetaminophen (Tylenol Tab) 650 mg Q3H PRN PO ELEVATED TEMPERATURE Last administered on 08/16/18 13:57; Admin Dose 650 MG; Start 08/13/18 at 15:30 Albumin Human 250 ml @ 500 mls/hr PRN PRN IV CVP< 8, OR SBP<90 Last admin istered on 08/13/18at 23:45; Admin Dose 500 MLS/HR; Start 08/13/18 at 17:00 Clopidogrel Bisulfate (plaVIX) 75 mg DAILY NGT Last administered on 08/20/18 08:34; Admin Dose 75 MG; Start 08/14/18 at 09:00 Amlodipine Besylate (Norvasc) 5 mg DAILY PO Last administered on 08/20/18 08:34; Admin Dose 5 MG; Start 08/16/18 at 09:30 Apixaban (Eliquis) 5 mg BID PO Last administered on 08/20/18 08:34; Admin Dose 5 MG; Start 08/16/18 at 10:00 Carvedilol (Coreg) 12.5 mg BID PO Last administered on 08/20/18 08:34; Admin Dose 12.5 MG; Start 08/16/18 at 10:00 Levalbuterol (Xopenex Neb) 1.25 mg Q6H RESP THERAPY HHN Last administered on 08/20/18 07:45; Admin Dose 1.25 MG; Start 08/16/18 at 20:00 Ipratropium [place] (Atrovent 0.02% (Neb)) 0.5 mg Q6H RESP THERAPY HHN Last administered on 08/20/18 07:45; Admin Dose 0.5 MG; Start 08/17/18 at 02:00 Diagnostic Test (Pha) (Accu-Chek) 1 ea 02 XX ; Start 08/18/18 at 02:00 Miscellaneous Information 1 ea NOTE XX ; Start 08/17/18 at 12:30 Glucose (Glutose) 15 gm Q15M PRN PO DECREASED GLUCOSE; Start 08/17/18 at 12:30 Glucose (Glutose) 22.5 gm Q15M PRN PO DECREASED GLUCOSE; Start 08/17/18 at 12:30 Dextrose (D50w Syringe) 25 ml Q15M PRN IV DECREASED GLUCOSE; Start 08/17/18 at 12:30 Dextrose (D50w Syringe) 50 ml Q15M PRN IV DECREASED GLUCOSE; Start 08/17/18 at 12:30 Glucagon (Glucagen) 1 mg Q15M PRN IM DECREASED GLUCOSE; Start 08/17/18 at 12:30 Glucose (Glutose) 15 gm Q15M PRN BUCCAL DECREASED GLUCOSE; Start 08/17/18 at 12:30 Furosemide (Lasix) 40 mg DAILY PO Last administered on 08/20/18 08:34; Admin Dose 40 MG; Start 08/18/18 at 09:00 Insulin Glargine (Lantus) 28 units 2300 SC Last administered on 08/19/18at 23:45; Admin Dose 28 UNITS; Start 08/18/18 at 23:00 Famotidine (Pepcid) 20 mg DAILY PO Last administered on 08/20/18at 08:35; Admin Dose 20 MG; Start 08/19/18 at 09:00 Ferric Sodium Gluconate Complex 125 mg/Sodium Chloride 100 ml @ 100 mls/hr DAILY@1300 IVPB ; Start 08/20/18 at 13:00; Stop 08/22/18 at 13:59 Insulin Aspart (Novolog Insulin Pen) 10 unit WITH MEALS SC Last administered on 08/20/18at 09:08; Admin Dose 10 UNIT; Start 08/19/18 at 17:55 Insulin Aspart (Novolog Insulin Pen) NOVOLOG *MODERATE* ALGORITHM WITH MEALS BEDTIME SC ; Start 08/20/18 at 07:55 DARRYL SOOD MD August 20, 2018 10:04
[2018-08-20] MEDS ORDERED: morphine 2 MG INJ IV STA (12:41)
[2018-08-20] MEDS ORDERED: OXYCODONE/ACETAMINOPHEN (10/325) TAB PO PRN (13:00)
[2018-08-20] MEDS ORDERED: morphine 2 MG INJ IV PRN (13:00)
[2018-08-20] MEDS: SOD FERRIC GLUC COMPLX 125 MG in SOD CHLORIDE 0.9% 100 ML IVPB SCH (14:26)
--- NOTE | 2018-08-20 15:35 | PN ---
Date/Time of Note Date/Time of Note DATE: 08/20/18 TIME: 15:34 Assessment/Plan Lines/Catheters IV Catheter Type (from Nrsg): Saline Lock Burkett in Place (from Nrsg): No (condom cath) Assessment/Plan Assessment/Plan creatinine improving. complaining of pain and swelling RLE, most likely harvest site but will get duplex to rule out DVT, increase ambulation Exam/Review of Systems Vital Signs Vitals Vital Signs Date Temp Pulse Resp B/P (MAP) Pulse Ox O2 O2 Flow FiO2 Time Delivery Rate 08/20/18 97.6 79 18 121/66 98 Room Air 15:25 (84) 08/20/18 3.0 14:03 08/20/18 32 02:19 Intake and Output 08/19/18 08/19/18 08/20/18 1515:00 23:00 07:00 IntakeIntake Total 1000 ml OutputOutput Total 500 ml BalanceBalance 500 ml Results Result Diagram: 08/19/18 0740 08/20/18 0602 LESIA DANIELLE MD August 20, 2018 15:35
[2018-08-20] MEDS: ATORVASTATIN 40 MG TAB PO SCH (20:09)
--- NOTE | 2018-08-20 21:07 | PN ---
Date/Time of Note Date/Time of Note DATE: 08/20/18 TIME: 21:03 Assessment/Plan VTE Prophylaxis Risk score (from Nsg)>0 risk: 15 SCD applied (from Ns): No SCD contraindicated: other (on.) Pharmacological prophylaxis: LMWH Lines/Catheters IV [facility] Type (from [facility] Saline Lock [place] line still needed: No Urinary Cath still in place: No (condom cath) Reason Cath still needed: urinary retention Assessment/Plan Assessment/Plan 1. Ischemic heart disease angina three-vessel coronary a. disease.s/p CABG x5 08/13/18: WINN to LAD, SVG to ramus sequence to obtuse marginal artery, SVG to PDA, SVG to left ventricular extension branch. Difficult case per Dr. Howell with poor targets.Vein harvesting and epiaortic scanning of the ascending aorta.CAD: s/p multiple prior PCIs. Cath 08/11/18 with multivessel disease. 2. Hypertension with congestive heart failure diastolic- improved. Now euvolemic. 3. Diabetes mellitus type 2 blood sugar better controlled. On Iv insulin. 4. History of cholecystitis and pancreatitis 5. Acute on chronic kidney disease with baseline creatinine being 1.6 up to 3.5 came down to 2.05 yesterday and 1.95 today. Improved after hydration,now mildly dehydrated; 6. Dyslipidemia better controlled 7. History of nasal bleeding recurrent- stable. 8. Morbid obesity with snoring and apnea and daytime sleepiness 9. BPH with nocturia 10. Low back pain with radiculopathy 11. 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 Status post cataract ectomy 13. Diabetic nephropathy retinopathy and angiopathy and neuropathy. 14. Constipation- improved. 15. Grief reaction after the of her 16. Gastroesophageal reflux disease 17. Deep venous thrombosis of the left saphenous vein, 2-3 months ago;was on Eliquis 5 mg twice daily, stopped: since 08/11/2018. 18. Gastritis 19. COPD. Quit smoking 10years ago.Successfully extubated with 02sat now 95% with persistent cough. 20. History of nephrolithiasis. 21. Drop of hematocrit; s/p 2 units of prbc tx. stable. 22. Drop of albumone and total protein and mild elevation of lft's. Result Diagram: 08/19/18 0740 08/20/18 0602 Results 24hrs Laboratory Tests Test 08/20/18 06:02 08/20/18 07:45 08/20/18 12:58 08/20/18 18:12 Sodium Level 136 Potassium Level 3.5 Chloride Level 97 Carbon Dioxide Level 30 Anion Gap 9 Blood Urea Nitrogen 57 H Creatinine 1.95 H Est Glomerular Filtrat Rate mL/min Glucose Level 143 Calcium Level 8.7 Total Bilirubin 0.7 Direct Bilirubin 0.00 Indirect Bilirubin 0.7 Aspartate Amino 45 Transf (AST/SGOT) Alanine 32 Aminotransferase (ALT/SG PT) Alkaline Phosphatase 58 Total Protein 6.5 Albumin 3.3 Globulin 3.20 Albumin/Globulin Ratio 1.03 Bedside Glucose 129 176 141 Test 08/20/18 20:08 Bedside Glucose 145 Subjective 24 Hr Interval Summary Free Text/Dictation I cannot stand up. Pain in the right leg it is not supporting me. No fever and chills no nausea vomiting. I cannot breathe deeply. Back pain in the andrea mbosacral area on the right side at the lower chest pain. When I am moving they are more painful. Constitutional: diaphoresis, poor po, requiring O2; No no complaints, No improved, No chills, No disoriented, No febrile, No requiring IVF, No other Eyes: No no complaints, No pain, No discharge, No redness, No visual change, No other ENT: congestion; No no complaints, No bleeding, No pain, No discharge, No dysphagia, No sore throat, No other Respiratory: cough, pleuritic pain, shortness of breath; No no complaints, No pain, No sputum, No wheezing, No other Cardiovascular: chest pain, edema, lightheadedness, orthopenea; No no complaints, No palpitations, No paroxysmal nocturnal dyspnea, No other Gastrointestinal: constipation; No no complaints, No pain, No blood, No decreased appetite, No diarrhea, No flatus, No nausea, No passing stool, No vomiting, No other Genitourinary: dysuria; No no complaints, No bleeding, No discharge, No flank pain, No hematuria, No other Musculoskeletal: back pain, bone/joint pain, neck pain; No no complaints, No restricted range of motion, No swelling, No other Skin: erythema; No no complaints, No bruising, No laceration, No pruritis, No rash, No skin lesions, No other Neurologic: dizziness, headache; No no complaints, No confusion, No focal-weakness, No syncope, No seizure, No other Endocrine: No no complaints, No polyuria, No polydypsia, No dry skin, No temp intolerance, No other Lymphatic: No no complaints, No adenopathy, No tender nodes, No lymphadema, No other Psychological: anxiety; No no complaints, No nl mood/affect, No confusion, No depression, No suicidal, No other Exam/Review of Systems Exam Vitals Vital Signs Date Temp Pulse Resp B/P (MAP) Pulse Ox O2 O2 Flow FiO2 Time Delivery Rate 08/20/18 20 125/60 93 19:57 (81) 08/20/18 66 Nasal 2.0 19:11 Cannula 08/20/18 97.6 15:25 08/20/18 32 02:19 Intake and Output 08/19/18 08/19/18 08/20/18 1515:00 23:00 07:00 IntakeIntake Total 1000 ml OutputOutput Total 500 ml BalanceBalance 500 ml Constitutional: oriented, well developed, frail Psych: anxiety; No no complaints, No nl mood/affect, No confusion, No depression, No suicidal, No other Head: normocephalic, atraumatic; No lacerations, No hematomas, No other Eyes: EOMI, nl lids, PERRL; No nl conjunctiva, No nl sclera, No icteric, No fundi, disc, No other ENMT: No nl external ears & nose, No nl lips & teeth, No nl nasal mucosa & septum, No mucosa pink and moist, No intubated, No tympanic membranes, No other Neck: nuchal rigidity; No supple, No non-tender, No jvd, No bruits, No masses, No thyromegaly, No other Respiratory: clear to auscultation, congested cough, diminished breath sounds; No normal air movement, No crackles/rales, No intercostal retraction, No labored breathing, No respirations, No tactile fremitus, No wheezing, No other Cardiovascular: regular rate and rhythm, nl pulses; No bruits, No diastolic murmur, No edema, No gallop, No irregular rhythm, No jugular venous distention (JVD), No murmurs/extra sounds, No rub, No systolic murmur, No S3, No S4, No other Gastrointestinal: bowel sounds; No soft, No nl liver, spleen, No non-tender, No ascites, No distended, No firm, No hepatomegaly, No mass, No rebound or guarding, No splenomegaly, No surgical scars, No tender, No other Genitourinary - Male: nl penis, nl scrotum Musculoskeletal: joint tenderness, muscle tone, muscle weakness; No nl extremities to inspection, No nl gait and stance, No range of motion, No spine non-tender, No swelling, No other Extremities: normal pulses, edema, other (Painful in the site of harvesting of the vein of the right lower extremity.); No calf tenderness, No cyanosis, No clubbing, No pitting pedal edema, No pa lpable cord, No tenderness 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: nl mental status, nl speech, numbness; No INVESTMENT ACCOUNTING CLERK II-XII intact, No nl strength, No confused, No DTR's symmetric, No focal weakness, No lethargic, No reflexes, No unresponsive, No other Results Results 24hrs Laboratory Tests Test 08/20/18 06:02 08/20/18 07:45 08/20/18 12:58 08/20/18 18:12 Sodium Level 136 Potassium Level 3.5 Chloride Level 97 Carbon Dioxide Level 30 Anion Gap 9 Blood Urea Nitrogen 57 H Creatinine 1.95 H Est Glomerular Filtrat Rate mL/min Glucose Level 143 Calcium Level 8.7 Total Bilirubin 0.7 Direct Bilirubin 0.00 Indirect Bilirubin 0.7 Aspartate Amino 45 Transf (AST/SGOT) Alanine 32 Aminotransferase (ALT/SG PT) Alkaline Phosphatase 58 Total Protein 6.5 Albumin 3.3 Globulin 3.20 Albumin/Globulin Ratio 1.03 Bedside Glucose 129 176 141 Test 08/20/18 20:08 Bedside Glucose 145 Medications Medication Current Medications Atorvastatin Calcium (Lipitor) 40 mg HS PO Last administered on 08/20/18at 20:09; Admin Dose 40 MG; Start 08/11/18 at 21:00 Hydralazine HCl (Apresoline) 10 mg Q4H PRN IV SBP >170 Last administered on 08/15/18at 10:52; Admin Dose 10 MG; Start 08/11/18 at 12:00 Hydromorphone HCl (Dilaudid) 0.2 mg Q15M PRN IV PAIN LEVEL 1-5 Last administered on 08/17/18 01:43; Admin Dose 0.2 MG; Start 08/13/18 at 15:30 Hydromorphone HCl (Dilaudid) 0.4 mg Q15M PRN IV PAIN LEVEL 6-10 Last administered on 08/15/18 12:50; Admin Dose 0.4 MG; Start 08/13/18 at 15:30 Ondansetron HCl (Zofran Inj) 4 mg Q6H PRN IV NAUSEA AND/OR VOMITING; Start 08/13/18 at 15:30 Acetaminophen (Tylenol Tab) 650 mg Q3H PRN PO ELEVATED TEMPERATURE Last administered on 08/16/18 13:57; Admin Dose 650 MG; Start 08/13/18 at 15:30 Albumin Human 250 ml @ 500 mls/hr PRN PRN IV CVP< 8, OR SBP<90 Last administered on 08/13/18 23:45; Admin Dose 500 MLS/HR; Start 08/13/18 at 17:00 Clopidogrel Bisulfate (plaVIX) 75 mg DAILY NGT Last administered on 08/20/18 08:34; Admin Dose 75 MG; Start 08/14/18 at 09:00 Amlodipine Besylate (Norvasc) 5 mg DAILY PO Last administered on 08/20/18 08:34; Admin Dose 5 MG; Start 08/16/18 at 09:30 Apixaban (Eliquis) 5 mg BID PO Last administered on 08/20/18 20:09; Admin Dose 5 MG; Start 08/16/18 at 10:00 Carvedilol (Coreg) 12.5 mg BID PO Last administered on 08/20/18 20:09; Admin Dose 12.5 MG; Start 08/16/18 at 10:00 Levalbuterol (Xopenex Neb) 1.25 mg Q6H RESP THERAPY HHN Last administered on 08/20/18 19:11; Admin Dose 1.25 MG; Start 08/16/18 at 20:00 Ipratropium [place] (Atrovent 0.02% (Neb)) 0.5 mg Q6H RESP THERAPY HHN Last administered on 08/20/18 19:11; Admin Dose 0.5 MG; Start 08/17/18 at 02:00 Diagnostic Test (Pha) (Accu-Chek) 1 ea 02 XX ; Start 08/18/18 at 02:00 Miscellaneous Information 1 ea NOTE XX ; Start 08/17/18 at 12:30 Glucose (Glutose) 15 gm Q15M PRN PO DECREASED GLUCOSE; Start 08/17/18 at 12:30 Glucose (Glutose) 22.5 gm Q15M PRN PO DECREASED GLUCOSE; Start 08/17/18 at 12:30 Dextrose (D50w Syringe) 25 ml Q15M PRN IV DECREASED GLUCOSE; Start 08/17/18 at 12:30 Dextrose (D50w Syringe) 50 ml Q15M PRN IV DECREASED GLUCOSE; Start 08/17/18 at 12:30 Glucagon (Glucagen) 1 mg Q15M PRN IM DECREASED GLUCOSE; Start 08/17/18 at 12:30 Glucose (Glutose) 15 gm Q15M PRN BUCCAL DECREASED GLUCOSE; Start 08/17/18 at 12:30 Furosemide (Lasix) 40 mg DAILY PO Last administered on 08/20/18at 08:34; Admin Dose 40 MG; Start 08/18/18 at 09:00 Insulin Glargine (Lantus) 28 units 2300 SC Last administered on 08/19/18at 23:45; Admin Dose 28 UNITS; Start 08/18/18 at 23:00 Famotidine (Pepcid) 20 mg DAILY PO Last administered on 08/20/18at 08:35; Admin Dose 20 MG; Start 08/19/18 at 09:00 Ferric Sodium Gluconate Complex 125 mg/Sodium Chloride 100 ml @ 100 mls/hr DAILY@1300 IVPB Last administered on 08/20/18at 14:26; Admin Dose 100 MLS/HR; Start 08/20/18 at 13:00; Stop 08/22/18 at 13:59 Insulin Aspart (Novolog Insulin Pen) 10 unit WITH MEALS SC Last administered on 08/20/18at 18:22; Admin Dose 10 UNIT; Start 08/19/18 at 17:55 Insulin Aspart (Novolog Insulin Pen) NOVOLOG *MODERATE* ALGORITHM WITH MEALS BEDTIME SC Last administered on 08/20/18at 13:14; Admin Dose 2 UNIT; Start 08/20/18 at 07:55 Morphine Sulfate (morphine) 1 mg Q4H PRN IV SEVERE PAIN LEVEL 7-10 Last administered on 08/20/18at 14:26; Admin Dose 1 MG; Start 08/20/18 at 13:00 Oxycodone/ Acetaminophen (Endocet ()) 1 tab Q4H PRN PO MODERATE PAIN LEVEL 4-6; Start 08/20/18 at 13:00 NERIS BROTHERS MD August 20, 2018 21:07
[2018-08-20] MEDS ORDERED: NA PHOSPHATE/BIPHOS 133 ML ENEMA PR ONE (22:00)
[2018-08-20] MEDS: INSULIN GLARGINE [LANTus] (100 UNITS/ML) SYG SC SCH (23:00)
[2018-08-21] VITALS (9 sets, daily range): BP systolic 114–134; BP diastolic 59–71; PULSE 62–89; RESP 16–20
[2018-08-21] MEDS: IPRATROPIUM (NEB) 0.5 MG/2.5 ML AMP HHN SCH ×3 (01:21→12:45)
[2018-08-21] MEDS: LEVALBUTEROL (NEB) 1.25 MG/0.5 ML AMP HHN SCH ×3 (01:21→12:45)
[2018-08-21] MEDS: ACCU-CHEK XX SCH (02:00)
--- NOTE | 2018-08-21 06:29 | PN ---
Date/Time of Note Date/Time of Note DATE: 08/21/18 TIME: 06:28 Assessment/Plan Lines/Catheters IV Catheter Type (from Nrs): Saline Lock Burkett in Place (from Nrs): No Assessment/Plan Assessment/Plan doing better, remove dressing, increase activity. home per cards and PCP. follow up in office after discharge Exam/Review of Systems Vital Signs Vitals Vital Signs Date Temp Pulse Resp B/P (MAP) Pulse Ox O2 O2 Flow FiO2 Time Delivery Rate 08/21/18 68 04:00 08/21/18 98.5 20 114/67 92 03:11 (83) 08/21/18 2.0 01:21 08/20/18 Nasal 20:00 Cannula 08/20/18 32 02:19 Intake and Output 08/20/18 08/20/18 08/21/18 1515:00 23:00 07:00 IntakeIntake Total 500 ml 1600 ml OutputOutput Total 500 ml BalanceBalance 0 ml 1600 ml Results Result Diagram: 08/19/18 0740 08/20/18 0602 LESIA DANIELLE MD August 21, 2018 06:29
[2018-08-21] MEDS: AMLODIPINE 5 MG TAB PO SCH (07:55)
[2018-08-21] MEDS: FUROSEMIDE 40 MG TAB PO SCH (07:55)
[2018-08-21] MEDS: APIXABAN 5 MG TABLET PO SCH (07:55)
[2018-08-21] MEDS: CLOPIDOGREL 75 MG TAB NGT SCH (07:55)
[2018-08-21] MEDS: FAMOTIDINE 20 MG TAB PO SCH (07:55)
[2018-08-21] MEDS: INSULIN ASPART [NOVOLOG] 3 ML PEN SC SCH ×6 (08:10→16:34)
--- NOTE | 2018-08-21 08:44 | CONS ---
Assessment/Plan Assessment/Plan Hospital Course (Demo Recall) Acute on chronic diastolic CHF: ~euvolemic Acute on chronic renal failure: Cr baseline 1.6. Worse after CABG.Now improving to 1.9 Cardiogenic shock: Transient post op, now off inotropic support and CI 2.6 Acute respiratory failure: s/p extubation 08/16 Anemia: from operative blood loss. Required one unit. No active bleeding s/p CABG x5 08/13/18: WINN to LAD, SVG to ramus sequence to obtuse marginal artery, SVG to PDA, SVG to left ventricular extension branch. Difficult case per Dr. Howell with poor targets. CAD: s/p multiple prior PCIs. Cath 08/11/18 with multivessel disease. s/p CABG above Recent left femoral DVT: on Eliquis as outpt. DM HT HL -?home soon. Ok from my perspective -lasix 40mg PO daily -Eliquis 5mg BID -continue plavix -coreg 12.5mg BID -amlodipine 5mg -lipitor 40mg Consultation Date/Type/Reason Admit Date/Time Aug 11, 2018 at 09:20 Initial Consult Date 08/11/18 Type of Consult Cardiology Requesting Provider: NERIS BROTHERS MD Date/Time of Note DATE: 08/21/18 TIME: 08:42 24 HR Interval Summary Free Text/Dictation Doing very well. Has right leg pain. No DVT on ultrasound. Chest pain resolved. No other complaints Exam/Review of Systems Vital Signs Vitals Vital Signs Date Temp Pulse Resp B/P (MAP) Pulse Ox O2 O2 Flow FiO2 Time Delivery Rate 08/21/18 66 08:00 08/21/18 98.7 16 134/66 96 Nasal 2.0 07:37 (88) Cannula 08/20/18 32 02:19 Intake and Output 08/20/18 08/20/18 08/21/18 1414:59 22:59 06:59 IntakeIntake Total 500 ml 1600 ml 400 ml OutputOutput Total 500 ml BalanceBalance 0 ml 1600 ml 400 ml Exam Constitutional: alert, oriented Psych: no complaints, nl mood/affect Head: normocephalic, atraumatic Neck: No jvd Respiratory: diminished breath sounds; No clear to auscultation Cardiovascular: regular rate and rhythm, edema (trace right); No systolic murmur Gastrointestinal: soft, non-tender; No distended 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: nl mental status, nl speech Labs Result Diagram: 08/21/18 0551 08/21/18 0551 Results 24hrs Laboratory Tests Test 08/20/18 12:58 08/20/18 18:12 08/20/18 20:08 08/21/18 05:51 Bedside Glucose 176 141 145 White Blood Count 8.7 Red Blood Count 3.46 L Hemoglobin 9.9 L Hematocrit 31.1 L Mean Corpuscular Volume 89.9 Mean Corpuscular 28.6 L Hemoglobin Mean Corpuscular 31.8 L Hemoglobin Concent Red Cell Distribution 13.9 Width Platelet Count 217 # Mean Platelet Volume 11.5 H Immature Granulocytes % 1.200 H Neutrophils % 63.8 Lymphocytes % 17.5 Monocytes % 10.8 Eosinophils % 6.2 Basophils % 0.5 Nucleated Red Blood 0.0 Cells % Immature Granulocytes # 0.100 H Neutrophils # 5.6 Lymphocytes # 1.5 Monocytes # 0.9 Eosinophils # 0.5 Basophils # 0.0 Nucleated Red Blood 0.0 Cells # Sodium Level 135 Potassium Level 3.7 Chloride Level 96 L Carbon Dioxide Level 29 Anion Gap 10 Blood Urea Nitrogen 51 H Creatinine 1.90 H Est Glomerular Filtrat Rate mL/min Glucose Level 142 Calcium Level 8.8 Total Bilirubin 0.8 Direct Bilirubin 0.00 Indirect Bilirubin 0.8 Aspartate Amino 43 Transf (AST/SGOT) Alanine 33 Aminotransferase (ALT/SG PT) Alkaline Phosphatase 66 Total Protein 6.7 Albumin 3.4 Globulin 3.30 H Albumin/Globulin Ratio 1.03 Test 08/21/18 06:25 08/21/18 07:54 Bedside Glucose 154 158 Medications Medications Current Medications Atorvastatin Calcium (Lipitor) 40 mg HS PO Last administered on 08/20/18at 20:09; Admin Dose 40 MG; Start 08/11/18 at 21:00 Hydralazine HCl (Apresoline) 10 mg Q4H PRN IV SBP >170 Last administered on 08/15/18at 10:52; Admin Dose 10 MG; Start 08/11/18 at 12:00 Hydromorphone HCl (Dilaudid) 0.2 mg Q15M PRN IV PAIN LEVEL 1-5 Last administered on 08/17/18at 01:43; Admin Dose 0.2 MG; Start 08/13/18 at 15:30 Hydromorphone HCl (Dilaudid) 0.4 mg Q15M PRN IV PAIN LEVEL 6-10 Last administered on 08/15/18 12:50; Admin Dose 0.4 MG; Start 08/13/18 at 15:30 Ondansetron HCl (Zofran Inj) 4 mg Q6H PRN IV NAUSEA AND/OR VOMITING; Start 08/13/18 at 15:30 Acetaminophen (Tylenol Tab) 650 mg Q3H PRN PO ELEVATED TEMPERATURE Last administered on 08/16/18 13:57; Admin Dose 650 MG; Start 08/13/18 at 15:30 Albumin Human 250 ml @ 500 mls/hr PRN PRN IV CVP< 8, OR SBP<90 Last administered on 08/13/18 23:45; Admin Dose 500 MLS/HR; Start 08/13/18 at 17:00 Clopidogrel Bisulfate (plaVIX) 75 mg DAILY NGT Last administered on 08/21/18 07:55; Admin Dose 75 MG; Start 08/14/18 at 09:00 Amlodipine Besylate (Norvasc) 5 mg DAILY PO Last administered on 08/21/18 07:55; Admin Dose 5 MG; Start 08/16/18 at 09:30 Apixaban (Eliquis) 5 mg BID PO Last administered on 08/21/18 07:55; Admin Dose 5 MG; Start 08/16/18 at 10:00 Carvedilol (Coreg) 12.5 mg BID PO Last administered on 08/21/18 07:55; Admin Dose 12.5 MG; Start 08/16/18 at 10:00 Levalbuterol (Xopenex Neb) 1.25 mg Q6H RESP THERAPY HHN Last administered on 08/20/18 19:11; Admin Dose 1.25 MG; Start 08/16/18 at 20:00 Ipratropium [place] (Atrovent 0.02% (Neb)) 0.5 mg Q6H RESP THERAPY HHN Last administered on 08/20/18 19:11; Admin Dose 0.5 MG; Start 08/17/18 at 02:00 Diagnostic Test (Pha) (Accu-Chek) 1 ea 02 XX ; Start 08/18/18 at 02:00 Miscellaneous Information 1 ea NOTE XX ; Start 08/17/18 at 12:30 Glucose (Glutose) 15 gm Q15M PRN PO DECREASED GLUCOSE; Start 08/17/18 at 12:30 Glucose (Glutose) 22.5 gm Q15M PRN PO DECREASED GLUCOSE; Start 08/17/18 at 12:30 Dextrose (D50w Syringe) 25 ml Q15M PRN IV DECREASED GLUCOSE; Start 08/17/18 at 12:30 Dextrose (D50w Syringe) 50 ml Q15M PRN IV DECREASED GLUCOSE; Start 08/17/18 at 12:30 Glucagon (Glucagen) 1 mg Q15M PRN IM DECREASED GLUCOSE; Start 08/17/18 at 12:30 Glucose (Glutose) 15 gm Q15M PRN BUCCAL DECREASED GLUCOSE; Start 08/17/18 at 12:30 Furosemide (Lasix) 40 mg DAILY PO Last administered on 08/21/18at 07:55; Admin Dose 40 MG; Start 08/18/18 at 09:00 Insulin Glargine (Lantus) 28 units 2300 SC Last administered on 08/20/18at 23:00; Admin Dose 28 UNITS; Start 08/18/18 at 23:00 Famotidine (Pepcid) 20 mg DAILY PO Last administered on 08/21/18at 07:55; Admin Dose 20 MG; Start 08/19/18 at 09:00 Ferric Sodium Gluconate Complex 125 mg/Sodium Chloride 100 ml @ 100 mls/hr DAILY@1300 IVPB Last administered on 08/20/18at 14:26; Admin Dose 100 MLS/HR; Start 08/20/18 at 13:00; Stop 08/22/18 at 13:59 Insulin Aspart (Novolog Insulin Pen) 10 unit WITH MEALS SC Last administered on 08/21/18at 08:10; Admin Dose 10 UNIT; Start 08/19/18 at 17:55 Insulin Aspart (Novolog Insulin Pen) NOVOLOG *MODERATE* ALGORITHM WITH MEALS BEDTIME SC Last administered on 08/21/18at 08:10; Admin Dose 2 UNIT; Start 08/20/18 at 07:55 Morphine Sulfate (morphine) 1 mg Q4H PRN IV SEVERE PAIN LEVEL 7-10 Last administered on 08/20/18at 14:26; Admin Dose 1 MG; Start 08/20/18 at 13:00 Oxycodone/ Acetaminophen (Endocet ()) 1 tab Q4H PRN PO MODERATE PAIN LEVEL 4-6; Start 08/20/18 at 13:00 Potassium Chloride (Potassium Chloride Pwd/Soln) 20 meq ONCE ONCE PO ; Start 08/21/18 at 09:00; Stop 08/21/18 at 09:01 ALONDRA GILBERT August 21, 2018 08:44
[2018-08-21] MEDS ORDERED: POTASSIUM CHLORIDE 20 MEQ POWDER FOR ORAL SOLN PO ONE (09:00)
--- NOTE | 2018-08-21 09:04 | PN ---
Date/Time of Note Date/Time of Note DATE: 08/21/18 TIME: 09:03 Assessment/Plan VTE Prophylaxis Risk score (from Ns)>0 risk: 2 SCD applied (from Ns): No SCD contraindicated: other (on) Pharmacological prophylaxis: LMWH, apixaban Lines/Catheters IV Catheter Type (from [email or web address] Peripheral IV Central line still needed: No Urinary Cath still in place: No Reason Cath still needed: urinary retention Assessment/Plan Assessment/Plan 1. Ischemic heart disease angina three-vessel coronary a. disease.s/p CABG x5 08/13/18: WINN to LAD, SVG to ramus sequence to obtuse marginal artery, SVG to PDA, SVG to left ventricular extension branch. Difficult case per Dr. Howell with poor targets.Vein harvesting and epiaortic scanning of the ascending aorta.CAD: s/p multiple prior PCIs. Cath 08/11/18 with multivessel disease. 2. Hypertension with congestive heart failure diastolic- improved. Now euvolemic. 3. Diabetes mellitus type 2 blood sugar better controlled. On Iv insulin. 4. History of cholecystitis and pancreatitis 5. Acute on chronic kidney disease with baseline creatinine being 1.6 up to 3.5 came down to 2.05 yesterday and 1.95 today. Improved after hydration,now mildly dehydrated; 6. Dyslipidemia better controlled 7. History of nasal bleeding recurrent- stable. 8. Morbid obesity with snoring and apnea and daytime sleepiness 9. BPH with nocturia 10. Low back pain with radiculopathy 11. 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 Status post cataract ectomy 13. Diabetic nephropathy retinopathy and angiopathy and neuropathy. 14. Constipation- improved. 15. Grief reaction after the of her 16. Gastroesophageal reflux disease 17. Deep venous thrombosis of the left saphenous vein, 2-3 months ago;was on Eliquis 5 mg twice daily, stopped: since 08/11/2018. 18. Gastritis 19. COPD. Quit smoking 10years ago.Successfully extubated with 02sat now 95% with persistent cough. 20. History of nephrolithiasis. 21. Drop of hematocrit; s/p 2 units of prbc tx. stable. 22. Drop of albumone and total protein and mild elevation of lft's. Result Diagram: 08/21/1855008/21/18550 Results 24hrs Laboratory Tests Test 08/20/18 12:58 08/20/18 18:12 08/20/18 20:08 08/21/18 05:51 Bedside Glucose 176 141 145 White Blood Count 8.7 Red Blood Count 3.46 L Hemoglobin 9.9 L Hematocrit 31.1 L Mean Corpuscular Volume 89.9 Mean Corpuscular 28.6 L Hemoglobin Mean Corpuscular 31.8 L Hemoglobin Concent Red Cell Distribution 13.9 Width Platelet Count 217 # Mean Platelet Volume 11.5 H Immature Granulocytes % 1.200 H Neutrophils % 63.8 Lymphocytes % 17.5 Monocytes % 10.8 Eosinophils % 6.2 Basophils % 0.5 Nucleated Red Blood 0.0 Cells % Immature Granulocytes # 0.100 H Neutrophils # 5.6 Lymphocytes # 1.5 Monocytes # 0.9 Eosinophils # 0.5 Basophils # 0.0 Nucleated Red Blood 0.0 Cells # Sodium Level 135 Potassium Level 3.7 Chloride Level 96 L Carbon Dioxide Level 29 Anion Gap 10 Blood Urea Nitrogen 51 H Creatinine 1.90 H Est Glomerular Filtrat Rate mL/min Glucose Level 142 Calcium Level 8.8 Total Bilirubin 0.8 Direct Bilirubin 0.00 Indirect Bilirubin 0.8 Aspartate Amino 43 Transf (AST/SGOT) Alanine 33 Aminotransferase (ALT/SG PT) Alkaline Phosphatase 66 Total Protein 6.7 Albumin 3.4 Globulin 3.30 H Albumin/Globulin Ratio 1.03 Test 08/21/18 06:25 08/21/18 07:54 Bedside Glucose 154 158 Subjective 24 Hr Interval Summary Free Text/Dictation SOB, I am tired. The pain is still compromising movements. Constitutional: improved, poor po, requiring O2; No no complaints, No chills, No diaphoresis, No disoriented, No febrile, No requiring IVF, No other Eyes: visual change; No no complaints, No pain, No discharge, No redness, No other ENT: congestion; No no complaints, No bleeding, No pain, No discharge, No dysphagia, No sore throat, No other Respiratory: cough; No no complaints, No pain, No pleuritic pain, No shortness of breath, No sputum, No wheezing, No other Cardiovascular: edema, lightheadedness, orthopenea, palpitations; No no complaints, No chest pain, No paroxysmal nocturnal dyspnea, No other Gastrointestinal: constipation, decreased appetite, passing stool Genitourinary: dysuria, flank pain; No no complaints, No bleeding, No discharge, No hematuria, No other Musculoskeletal: back pain, bone/joint pain, neck pain; No no complaints, No restricted range of motion, No swelling, No other Skin: bruising, pruritis; No no complaints, No erythema, No laceration, No rash, No skin lesions, No other Endocrine: dry skin; No no complaints, No polyuria, No polydypsia, No temp intolerance, No other Exam/Review of Systems Exam Vitals Vital Signs Date Temp Pulse Resp B/P (MAP) Pulse Ox O2 O2 Flow FiO2 Time Delivery Rate 08/21/18 2.0 08:45 08/21/18 63 20 95 Nasal 08:45 Cannula 08/21/18 98.7 134/66 07:37 (88) 08/20/18 32 02:19 Intake and Output 08/20/18 08/20/18 08/21/18 1414:59 22:59 06:59 IntakeIntake Total 500 ml 1600 ml 400 ml OutputOutput Total 500 ml BalanceBalance 0 ml 1600 ml 400 ml Constitutional: alert, oriented, well developed, distress, frail, obese; No non-verbal, No other Psych: anxiety, depression; No no complaints, No nl mood/affect, No confusion, No suicidal, No other Head: normocephalic, atraumatic; No lacerations, No hematomas, No other Eyes: EOMI, nl lids; No nl conjunctiva, No nl sclera, No PERRL, No icteric, No fundi, disc, No other ENMT: nl lips & teeth, nl nasal mucosa & septum; No nl external ears & nose, No mucosa pink and moist, No intubated, No tympanic membranes, No other Neck: bruits; No supple, No non-tender, No jvd, No masses, No thyromegaly, No nuchal rigidity, No other Respiratory: crackles/rales, diminished breath sounds; No clear to auscultation, No normal air movement, No congested cough, No intercostal retraction, No labored breathing, No respirations, No tactile fremitus, No wheezing, No other Cardiovascular: regular rate and rhythm, bruits Gastrointestinal: soft, bowel sounds, distended, rebound or guarding; No nl liver, spleen, No non-tender, No ascites, No firm, No hepatomegaly, No mass, No splenomegaly, No surgical scars, No tender, No other Genitourinary - Male: nl penis, nl scrotum; No CVA tenderness, No discharge, No other Musculoskeletal: nl extremities to inspection, muscle tone, other (tender 6- 7/10 over the left leg inferiorly medially above the projecction of the removed graft.) Results Results 24hrs Laboratory Tests Test 08/20/18 12:58 08/20/18 18:12 08/20/18 20:08 08/21/18 05:51 Bedside Glucose 176 141 145 White Blood Count 8.7 Red Blood Count 3.46 L Hemoglobin 9.9 L Hematocrit 31.1 L Mean Corpuscular Volume 89.9 Mean Corpuscular 28.6 L Hemoglobin Mean Corpuscular 31.8 L Hemoglobin Concent Red Cell Distribution 13.9 Width Platelet Count 217 # Mean Platelet Volume 11.5 H Immature Granulocytes % 1.200 H Neutrophils % 63.8 Lymphocytes % 17.5 Monocytes % 10.8 Eosinophils % 6.2 Basophils % 0.5 Nucleated Red Blood 0.0 Cells % Immature Granulocytes # 0.100 H Neutrophils # 5.6 Lymphocytes # 1.5 Monocytes # 0.9 Eosinophils # 0.5 Basophils # 0.0 Nucleated Red Blood 0.0 Cells # Sodium Level 135 Potassium Level 3.7 Chloride Level 96 L Carbon Dioxide Level 29 Anion Gap 10 Blood Urea Nitrogen 51 H Creatinine 1.90 H Est Glomerular Filtrat Rate mL/min Glucose Level 142 Calcium Level 8.8 Total Bilirubin 0.8 Direct Bilirubin 0.00 Indirect Bilirubin 0.8 Aspartate Amino 43 Transf (AST/SGOT) Alanine 33 Aminotransferase (ALT/SG PT) Alkaline Phosphatase 66 Total Protein 6.7 Albumin 3.4 Globulin 3.30 H Albumin/Globulin Ratio 1.03 Test 08/21/18 06:25 08/21/18 07:54 Bedside Glucose 154 158 Medications Medication Current Medications Atorvastatin Calcium (Lipitor) 40 mg HS PO Last administered on 08/20/18at 20:09; Admin Dose 40 MG; Start 08/11/18 at 21:00 Hydralazine HCl (Apresoline) 10 mg Q4H PRN IV SBP >170 Last administered on 08/15/18at 10:52; Admin Dose 10 MG; Start 08/11/18 at 12:00 Hydromorphone HCl (Dilaudid) 0.2 mg Q15M PRN IV PAIN LEVEL 1-5 Last administered on 08/17/18 01:43; Admin Dose 0.2 MG; Start 08/13/18 at 15:30 Hydromorphone HCl (Dilaudid) 0.4 mg Q15M PRN IV PAIN LEVEL 6-10 Last administered on 08/15/18 12:50; Admin Dose 0.4 MG; Start 08/13/18 at 15:30 Ondansetron HCl (Zofran Inj) 4 mg Q6H PRN IV NAUSEA AND/OR VOMITING; Start 08/13/18 at 15:30 Acetaminophen (Tylenol Tab) 650 mg Q3H PRN PO ELEVATED TEMPERATURE Last administered on 08/16/18 13:57; Admin Dose 650 MG; Start 08/13/18 at 15:30 Albumin Human 250 ml @ 500 mls/hr PRN PRN IV CVP< 8, OR SBP<90 Last administered on 08/13/18 23:45; Admin Dose 500 MLS/HR; Start 08/13/18 at 17:00 Clopidogrel Bisulfate (plaVIX) 75 mg DAILY NGT Last administered on 08/21/18 07:55; Admin Dose 75 MG; Start 08/14/18 at 09:00 Amlodipine Besylate (Norvasc) 5 mg DAILY PO Last administered on 08/21/18 07:55; Admin Dose 5 MG; Start 08/16/18 at 09:30 Apixaban (Eliquis) 5 mg BID PO Last administered on 08/21/18 07:55; Admin Dose 5 MG; Start 08/16/18 at 10:00 Carvedilol (Coreg) 12.5 mg BID PO Last administered on 08/21/18 07:55; Admin Dose 12.5 MG; Start 08/16/18 at 10:00 Levalbuterol (Xopenex Neb) 1.25 mg Q6H RESP THERAPY HHN Last administered on 08/21/18 08:45; Admin Dose 1.25 MG; Start 08/16/18 at 20:00 Ipratropium [place] (Atrovent 0.02% (Neb)) 0.5 mg Q6H RESP THERAPY HHN Last administered on 08/21/18at 08:44; Admin Dose 0.5 MG; Start 08/17/18 at 02:00 Diagnostic Test (Pha) (Accu-Chek) 1 ea 02 XX ; Start 08/18/18 at 02:00 Miscellaneous Information 1 ea NOTE XX ; Start 08/17/18 at 12:30 Glucose (Glutose) 15 gm Q15M PRN PO DECREASED GLUCOSE; Start 08/17/18 at 12:30 Glucose (Glutose) 22.5 gm Q15M PRN PO DECREASED GLUCOSE; Start 08/17/18 at 12:30 Dextrose (D50w Syringe) 25 ml Q15M PRN IV DECREASED GLUCOSE; Start 08/17/18 at 12:30 Dextrose (D50w Syringe) 50 ml Q15M PRN IV DECREASED GLUCOSE; Start 08/17/18 at 12:30 Glucagon (Glucagen) 1 mg Q15M PRN IM DECREASED GLUCOSE; Start 08/17/18 at 12:30 Glucose (Glutose) 15 gm Q15M PRN BUCCAL DECREASED GLUCOSE; Start 08/17/18 at 12:30 Furosemide (Lasix) 40 mg DAILY PO Last administered on 08/21/18at 07:55; Admin Dose 40 MG; Start 08/18/18 at 09:00 Insulin Glargine (Lantus) 28 units 2300 SC Last administered on 08/20/18at 23:00; Admin Dose 28 UNITS; Start 08/18/18 at 23:00 Famotidine (Pepcid) 20 mg DAILY PO Last administered on 08/21/18at 07:55; Admin Dose 20 MG; Start 08/19/18 at 09:00 Ferric Sodium Gluconate Complex 125 mg/Sodium Chloride 100 ml @ 100 mls/hr DAILY@1300 IVPB Last administered on 08/20/18at 14:26; Admin Dose 100 MLS/HR; S tart 08/20/18 at 13:00; Stop 08/22/18 at 13:59 Insulin Aspart (Novolog Insulin Pen) 10 unit WITH MEALS SC Last administered on 08/21/18at 08:10; Admin Dose 10 UNIT; Start 08/19/18 at 17:55 Insulin Aspart (Novolog Insulin Pen) NOVOLOG *MODERATE* ALGORITHM WITH MEALS BEDTIME SC Last administered on 5/2/19at 08:10; Admin Dose 2 UNIT; Start 08/20/18 at 07:55 Morphine Sulfate (morphine) 1 mg Q4H PRN IV SEVERE PAIN LEVEL 7-10 Last administered on 08/20/18at 14:26; Admin Dose 1 MG; Start 08/20/18 at 13:00 Oxycodone/ Acetaminophen (Endocet (/ 325)) 1 tab Q4H PRN PO MODERATE PAIN LEVEL 4-6; Start 08/20/18 at 13:00 NERIS BROTHERS MD August 21, 2018 09:04
[2018-08-21] MEDS ORDERED: POLYETHYLENE GLYCOL 17 GM PACKET PO SCH (13:00)
[2018-08-21] MEDS ORDERED: ALBUMIN HUMAN 25% 100 ML IV SCH (13:00)
[2018-08-21] MEDS ORDERED: DOCUSATE SODIUM 250 MG CAP PO SCH (13:00)
[2018-08-21] MEDS ORDERED: ASCORBIC ACID 500 MG TAB NGT SCH (13:00)
[2018-08-21] MEDS: SOD FERRIC GLUC COMPLX 125 MG in SOD CHLORIDE 0.9% 100 ML IVPB SCH (13:03)
--- NOTE | 2018-08-21 15:46 | PDOCDIS ---
Discharge Instructions DIAGNOSIS Discharge Diagnosis 1. Ischemic heart disease angina three-vessel coronary a. disease.s/p CABG x5 08/13/18: WINN to LAD, SVG to ramus sequence to obtuse marginal artery, SVG to PDA, SVG to left ventricular extension branch. Difficult case per Dr. Howell with poor targets.Vein harvesting and epiaortic scanning of the ascending aorta.CAD: s/p multiple prior PCIs. Cath 08/11/18 with multivessel disease. 2. Hypertension with congestive heart failure diastolic- improved. Now euvolemic. 3. Diabetes mellitus type 2 blood sugar better controlled. On Iv insulin. 4. History of cholecystitis and pancreatitis 5. Acute on chronic kidney disease with baseline creatinine being 1.6 up to 3.5 came down to 2.05 yesterday and 1.95 today. Improved after hydration,now mildly dehydrated; 6. Dyslipidemia better controlled 7. History of nasal bleeding recurrent- stable. 8. Morbid obesity with snoring and apnea and daytime sleepiness 9. BPH with nocturia 10. Low back pain with radiculopathy 11. 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 Status post cataract ectomy 13. Diabetic nephropathy retinopathy and angiopathy and neuropathy. 14. Constipation- improved. 15. Grief reaction after the of her 16. Gastroesophageal reflux disease 17. Deep venous thrombosis of the left saphenous vein, 2-3 months ago;was on Eliquis 5 mg twice daily, stopped: since 08/11/2018. 18. Gastritis 19. COPD. Quit smoking 10years ago.Successfully extubated with 02sat now 95% with persistent cough. 20. History of nephrolithiasis. 21. Drop of hematocrit; s/p 2 units of prbc tx. stable. 22. Drop of albumone and total protein and mild elevation of lft's. CONDITION [id number] Patient Condition: [id number] Guarded HOME CARE INSTRUCTIONS: [id number] Diet Instructions: [id number] Reduced Sodium ACTIVITY: [id number] Activity Restrictions: [id number] Slowly Increase Activity [id number] Bathing Restrictions: [id number] Sponge Bath FOLLOW UP/APPOINTMENTS Follow-up Plan Plan to transfer to rehabilitation unit. SCHOOL/WORK RELEASE May return to School/Work with: With Restrictions NERIS BROTHERS MD August 21, 2018 15:46
--- NOTE | 2018-08-21 18:33 | CONS ---
Assessment/Plan Assessment/Plan Assessment/Plan (Daily) 1. acute kidney injury vs possible baseline CKD II due to ishcemic ATN + Hemodynamics 2. 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 H/o HTN 4. H/o HL 5. H/o DM II 6. H/o CAD with previous stent placement 7. Anemia of chronic disease with iron deficiency Plan: BUN/Cr improved to 51/1.9- other electrolytes stable, continue Lasix 40mg po daily, amlodipine 5 mg po daily Ferrlecit 125 mg IV daily x 5 doses will follow up possible transfer to acute rehab unit today Consultation Date/Type/Reason Admit Date/Time Aug 11, 2018 at 09:20 Initial Consult Date 08/11/18 Type of Consult NEPHROLOGY Requesting Provider: NERIS BROTHERS MD Date/Time of Note DATE: 08/21/18 TIME: 18:33 Exam/Review of Systems Exam Vitals Vital Signs Date Temp Pulse Resp B/P (MAP) Pulse Ox O2 O2 Flow FiO2 Time Delivery Rate 08/21/18 67 16:00 08/21/18 97.6 16 117/59 98 Nasal 2.0 15:16 (78) Cannula 08/20/18 32 02:19 Intake and Output 08/20/18 08/20/18 08/21/18 1414:59 22:59 06:59 IntakeIntake Total 500 ml 1600 ml 400 ml OutputOutput Total 500 ml BalanceBalance 0 ml 1600 ml 400 ml Exam Constitutional: alert, awake no acute distress Respiratory: clear to auscultation, normal air movement, diminished breath sounds Cardiovascular: regular rate and rhythm, nl pulses, + midline Chest scar healthy Gastrointestinal: soft, non-tender Musculoskeletal: nl extremities to inspection Extremities: normal pulses , Dressign in place, 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: INSULATION FOREMAN II-XII intact, nl mental status, nl speech, nl strength Results Result Diagram: 08/21/18 0551 08/21/18 0551 Results 24hrs Laboratory Tests Test 08/20/18 20:08 08/21/18 05:51 08/21/18 06:25 08/21/18 07:54 Bedside Glucose 145 154 158 White Blood Count 8.7 Red Blood Count 3.46 L Hemoglobin 9.9 L Hematocrit 31.1 L Mean Corpuscular Volume 89.9 Mean Corpuscular 28.6 L Hemoglobin Mean Corpuscular 31.8 L Hemoglobin Concent Red Cell Distribution 13.9 Width Platelet Count 217 # Mean Platelet Volume 11.5 H Immature Granulocytes % 1.200 H Neutrophils % 63.8 Lymphocytes % 17.5 Monocytes % 10.8 Eosinophils % 6.2 Basophils % 0.5 Nucleated Red Blood 0.0 Cells % Immature Granulocytes # 0.100 H Neutrophils # 5.6 Lymphocytes # 1.5 Monocytes # 0.9 Eosinophils # 0.5 Basophils # 0.0 Nucleated Red Blood 0.0 Cells # Sodium Level 135 Potassium Level 3.7 Chloride Level 96 L Carbon Dioxide Level 29 Anion Gap 10 Blood Urea Nitrogen 51 H Creatinine 1.90 H Est Glomerular Filtrat Rate mL/min Glucose Level 142 Calcium Level 8.8 Total Bilirubin 0.8 Direct Bilirubin 0.00 Indirect Bilirubin 0.8 Aspartate Amino 43 Transf (AST/SGOT) Alanine 33 Aminotransferase (ALT/SG PT) Alkaline Phosphatase 66 Total Protein 6.7 Albumin 3.4 Globulin 3.30 H Albumin/Globulin Ratio 1.03 Test 08/21/18 11:47 08/21/18 16:19 Bedside Glucose 200 145 Medications Medication Current Medications Atorvastatin Calcium (Lipitor) 40 mg HS PO Last administered on 08/20/18 20:09; Admin Dose 40 MG; Start 08/11/18 at 21:00 Hydralazine HCl (Apresoline) 10 mg Q4H PRN IV SBP >170 Last administered on 08/15/18 10:52; Admin Dose 10 MG; Start 08/11/18 at 12:00 Hydromorphone HCl (Dilaudid) 0.2 mg Q15M PRN IV PAIN LEVEL 1-5 Last administered on 08/17/18at 01:43; Admin Dose 0.2 MG; Start 08/13/18 at 15:30 Hydromorphone HCl (Dilaudid) 0.4 mg Q15M PRN IV PAIN LEVEL 6-10 Last adminis tered on 08/15/18at 12:50; Admin Dose 0.4 MG; Start 08/13/18 at 15:30 Ondansetron HCl (Zofran Inj) 4 mg Q6H PRN IV NAUSEA AND/OR VOMITING; Start 08/13/18 at 15:30 Acetaminophen (Tylenol Tab) 650 mg Q3H PRN PO ELEVATED TEMPERATURE Last administered on 4/27/19at 13:57; Admin Dose 650 MG; Start 08/13/18 at 15:30 Albumin Human 250 ml @ 500 mls/hr PRN PRN IV CVP< 8, OR SBP<90 Last administered on 08/13/18at 23:45; Admin Dose 500 MLS/HR; Start 08/13/18 at 17:00 Clopidogrel Bisulfate (plaVIX) 75 mg DAILY NGT Last administered on 08/21/18 07:55; Admin Dose 75 MG; Start 08/14/18 at 09:00 Amlodipine Besylate (Norvasc) 5 mg DAILY PO Last administered on 08/21/18 07:55; Admin Dose 5 MG; Start 08/16/18 at 09:30 Apixaban (Eliquis) 5 mg BID PO Last administered on 08/21/18 07:55; Admin Dose 5 MG; Start 08/16/18 at 10:00 Carvedilol (Coreg) 12.5 mg BID PO Last administered on 08/21/18 07:55; Admin Dose 12.5 MG; Start 08/16/18 at 10:00 Levalbuterol (Xopenex Neb) 1.25 mg Q6H RESP THERAPY HHN Last administered on 08/21/18 08:45; Admin Dose 1.25 MG; Start 08/16/18 at 20:00 Ipratropium [place] (Atrovent 0.02% (Neb)) 0.5 mg Q6H RESP THERAPY HHN Last administered on 08/21/18 08:44; Admin Dose 0.5 MG; Start 08/17/18 at 02:00 Diagnostic Test (Pha) (Accu-Chek) 1 ea 02 XX ; Start 08/18/18 at 02:00 Miscellaneous Information 1 ea NOTE XX ; Start 08/17/18 at 12:30 Glucose (Glutose) 15 gm Q15M PRN PO DECREASED GLUCOSE; Start 08/17/18 at 12:30 Glucose (Glutose) 22.5 gm Q15M PRN PO DECREASED GLUCOSE; Start 08/17/18 at 12:30 Dextrose (D50w Syringe) 25 ml Q15M PRN IV DECREASED GLUCOSE; Start 08/17/18 at 12:30 Dextrose (D50w Syringe) 50 ml Q15M PRN IV DECREASED GLUCOSE; Start 08/17/18 at 12:30 Glucagon (Glucagen) 1 mg Q15M PRN IM DECREASED GLUCOSE; Start 08/17/18 at 12:30 Glucose (Glutose) 15 gm Q15M PRN BUCCAL DECREASED GLUCOSE; Start 08/17/18 at 12:30 Furosemide (Lasix) 40 mg DAILY PO Last administered on 08/21/18 07:55; Admin Dose 40 MG; Start 08/18/18 at 09:00 Insulin Glargine (Lantus) 28 units 2300 SC Last administered on 08/20/18at 23:00; Admin Dose 28 UNITS; Start 08/18/18 at 23:00 Famotidine (Pepcid) 20 mg DAILY PO Last administered on 08/21/18 07:55; Admin Dose 20 MG; Start 08/19/18 at 09:00 Ferric Sodium Gluconate Complex 125 mg/Sodium Chloride 100 ml @ 100 mls/hr NAZ Y@1300 IVPB Last administered on 08/21/18 13:03; Admin Dose 100 MLS/HR; Start 08/20/18 at 13:00; Stop 08/22/18 at 13:59 Insulin Aspart (Novolog Insulin Pen) 10 unit WITH MEALS SC Last administered on 08/21/18 16:34; Admin Dose 10 UNIT; Start 08/19/18 at 17:55 Insulin Aspart (Novolog Insulin Pen) NOVOLOG *MODERATE* ALGORITHM WITH MEALS BEDTIME SC Last administered on 08/21/18 16:34; Admin Dose 2 UNIT; Start 08/20/18 at 07:55 Morphine Sulfate (morphine) 1 mg Q4H PRN IV SEVERE PAIN LEVEL 7-10 Last administered on 08/20/18at 14:26; Admin Dose 1 MG; Start 08/20/18 at 13:00 Oxycodone/ Acetaminophen (Endocet (10/ 325)) 1 tab Q4H PRN PO MODERATE PAIN LEVEL 4-6; Start 08/20/18 at 13:00 Ascorbic Acid (Vitamin C) 500 mg TID NGT Last administered on 08/21/18 13:03; Admin Dose 500 MG; Start 08/21/18 at 13:00 Albumin Human 100 ml @ 100 mls/hr TID IV Last administered on 08/21/18 13:03; Admin Dose 100 MLS/HR; Start 08/21/18 at 13:00; Stop 08/22/18 at 12:59 Docusate Sodium (Colace) 250 mg BID PO Last administered on 08/21/18at 13:03; Admin Dose 250 MG; Start 08/21/18 at 13:00 Polyethylene Glycol (Miralax) 17 gm TID PO Last administered on 08/21/18at 13:03; Admin Dose 17 GM; Start 08/21/18 at 13:00 DARRYL SOOD MD August 21, 2018 18:33
== END 2018-08-21 18:49 | DRG 233 ==
LOC: SDS 06:49 → ICU 09:20 → TEL 08-18 14:38
PROVIDERS: ADMIT Internal Medicine Interventional Cardiology; ATTEND Internal Medicine Interventional Cardiology
PROC: 4A023N7 Measurement of Cardiac Sampling and Pressure, Left Heart, Percutaneous Approach (ICD-10-PCS; 2018-08-11)
PROC: B211YZZ Fluoroscopy of Multiple Coronary Arteries using Other Contrast (ICD-10-PCS; 2018-08-11)
PROC: B211YZZ Fluoroscopy of Multiple Coronary Arteries using Other Contrast (ICD-10-PCS; 2018-08-13)
PROC: 06BP4ZZ Excision of Right Saphenous Vein, Percutaneous Endoscopic Approach (ICD-10-PCS; 2018-08-13)
PROC: 02100Z9 Bypass Coronary Artery, One Artery from Left Internal Mammary, Open Approach (ICD-10-PCS; 2018-08-13)
PROC: 5A1221Z Performance of Cardiac Output, Continuous (ICD-10-PCS; 2018-08-13)
PROC: 02HP32Z Insertion of Monitoring Device into Pulmonary Trunk, Percutaneous Approach (ICD-10-PCS; 2018-08-13)
PROC: 5A1945Z Respiratory Ventilation, 24-96 Consecutive Hours (ICD-10-PCS; 2018-08-13)
PROC: 021309W Bypass Coronary Artery, Four or More Arteries from Aorta with Autologous Venous Tissue, Open Approach (ICD-10-PCS; principal; 2018-08-13 09:30)
PROC: 30233N1 Transfusion of Nonautologous Red Blood Cells into Peripheral Vein, Percutaneous Approach (ICD-10-PCS; 2018-08-15)
DX: I25.119 Atherosclerotic heart disease of native coronary artery with unspecified angina pectoris (principal); I50.33 Acute on chronic diastolic (congestive) heart failure; R57.0 Cardiogenic shock; N17.0 Acute kidney failure with tubular necrosis; J96.00 Acute respiratory failure, unspecified whether with hypoxia or hypercapnia; I13.0 Hypertensive heart and chronic kidney disease with heart failure and stage 1 through stage 4 chronic kidney disease, or unspecified chronic kidney disease; T82.855A Stenosis of coronary artery stent, initial encounter; Z68.41 Body mass index [BMI] 40.0-44.9, adult; D62 Acute posthemorrhagic anemia; E11.22 Type 2 diabetes mellitus with diabetic chronic kidney disease; N18.2 Chronic kidney disease, stage 2 (mild); E11.319 Type 2 diabetes mellitus with unspecified diabetic retinopathy without macular edema; E11.51 Type 2 diabetes mellitus with diabetic peripheral angiopathy without gangrene; E78.5 Hyperlipidemia, unspecified; J44.9 Chronic obstructive pulmonary disease, unspecified; K21.9 Gastro-esophageal reflux disease without esophagitis; E11.21 Type 2 diabetes mellitus with diabetic nephropathy; E11.40 Type 2 diabetes mellitus with diabetic neuropathy, unspecified; N40.1 Benign prostatic hyperplasia with lower urinary tract symptoms; R35.1 Nocturia; D69.6 Thrombocytopenia, unspecified; M17.0 Bilateral primary osteoarthritis of knee; E66.01 Morbid (severe) obesity due to excess calories; K59.00 Constipation, unspecified; Y83.8 Other surgical procedures as the cause of abnormal reaction of the patient, or of later complication, without mention of misadventure at the time of the procedure; Z86.718 Personal history of other venous thrombosis and embolism; Z95.5 Presence of coronary angioplasty implant and graft; Z79.01 Long term (current) use of anticoagulants; Z79.4 Long term (current) use of insulin
CPT/HCPCS: 36430; 36592; 36600; 71045; 80048; 80053; 82803; 82962; 83540; 83605; 83735; 84100; 85014; 85025; 85610; 85730; 86850; 86900; 86901; 86920; 87070; 87081; 87086; 92526; 92610; 93005; 93312; 93325; 93458; 93880; 93971; 94002; 94003; 94640; 94660; 94664; 94770; 97110; 97116; 97163; 97167; 97530; 97535; J0171; J0360; J0690; J1170; J1265; J1644; J1650; J1815; J1940; J2250; J2260; J2270; J2310; J2370; J2440; J2720; J2916; J3010; J3370; J3475; J3480; J7030; J7050; J7070; P9016; P9045; P9047; Q9967

== ENCOUNTER 2018-08-21 18:18 | Inpatient (IN) | payer MEDICARE, OTHER ==
[~2018-08-21] VITALS: Ht 167.6 cm; Wt 113.9 kg
[~2018-08-21 18:18] MED LIST changes: +AMLO5TAB4 PO; +APIX5TAB PO; +ASPI81TA52 PO; +CLON-379 PO; -CLON0.2T5 PO; +FURO40TA4 PO; +INSU100I27 SQ; -LEVEM; -NOV; +NOVO3I SC; -PANT40TA3; +POTA10TA37 PO; -PRAS10TA6; -RAMI10TA; +ROSU40TA35 PO; +[UNRECOGNIZED DRUG - CODE] PO; -[UNRECOGNIZED DRUG - CODE] PO
[2018-08-21 20:00] VITALS: BP 135/63; PULSE 70; RESP 18; BMI 40.5
[2018-08-21 20:39] VITALS: Ht 167.6 cm; Wt 113.9 kg
[2018-08-21] MEDS ORDERED: ALBUMIN HUMAN 25% 100 ML IV SCH (21:08)
[2018-08-21] MEDS ORDERED: DOCUSATE SODIUM 250 MG CAP PO SCH (21:08)
[2018-08-21] MEDS ORDERED: GLUCOSE GEL 15 GRAM TUBE PO PRN ×2 (21:08)
[2018-08-21] MEDS ORDERED: hydrALAzine 20 MG INJ IV PRN ×2 (21:08→21:30)
[2018-08-21] MEDS ORDERED: APIXABAN 5 MG TABLET PO SCH (21:08)
[2018-08-21] MEDS ORDERED: GLUCOSE GEL 15 GRAM TUBE BUCCAL PRN (21:08)
[2018-08-21] MEDS ORDERED: ATORVASTATIN 40 MG TAB PO SCH (21:08)
[2018-08-21] MEDS ORDERED: AMLODIPINE 5 MG TAB PO SCH ×2 (21:08→21:49)
[2018-08-21] MEDS ORDERED: HYDROmorphONE 0.5 MG/0.5 ML SYG IV PRN (21:08)
[2018-08-21] MEDS ORDERED: morphine 2 MG INJ IV PRN (21:08)
[2018-08-21] MEDS ORDERED: GLUCAGON 1 MG INJ IM PRN (21:08)
[2018-08-21] MEDS ORDERED: SOD FERRIC GLUC COMPLX 125 MG in SOD CHLORIDE 0.9% 100 ML IVPB SCH (21:08)
[2018-08-21] MEDS ORDERED: ACETAMINOPHEN 325 MG TAB PO PRN ×2 (21:08→22:00)
[2018-08-21] MEDS ORDERED: ASCORBIC ACID 500 MG TAB NGT SCH (21:08)
[2018-08-21] MEDS ORDERED: ONDANSETRON 4 MG INJ IV PRN (21:08)
[2018-08-21] MEDS ORDERED: POLYETHYLENE GLYCOL 17 GM PACKET PO SCH (21:08)
[2018-08-21] MEDS ORDERED: DEXTROSE 50% 50 ML SYRINGE IV PRN ×2 (21:08)
[2018-08-21] MEDS ORDERED: ALBUMIN HUMAN 5% 250 ML IV PRN (21:08)
[2018-08-21] MEDS: ASCORBIC ACID 500 MG TAB NGT SCH (22:50)
[2018-08-21] MEDS: APIXABAN 5 MG TABLET PO SCH (22:50)
[2018-08-21] MEDS: POLYETHYLENE GLYCOL 17 GM PACKET PO SCH (22:51)
[2018-08-21] MEDS: ATORVASTATIN 40 MG TAB PO SCH (22:51)
[2018-08-21] MEDS: DOCUSATE SODIUM 250 MG CAP PO SCH (22:51)
[2018-08-21] MEDS: ALBUMIN HUMAN 25% 100 ML IV SCH (22:53)
[2018-08-21] MEDS: INSULIN GLARGINE [LANTus] (100 UNITS/ML) SYG SC SCH (23:03)
[2018-08-22 02:00] VITALS: BP 124/60; PULSE 66; RESP 18
[2018-08-22] MEDS: ACCU-CHEK XX SCH (02:00)
[2018-08-22] MEDS: IPRATROPIUM (NEB) 0.5 MG/2.5 ML AMP HHN SCH ×2 (06:30→19:29)
[2018-08-22] MEDS: LEVALBUTEROL (NEB) 1.25 MG/0.5 ML AMP HHN SCH ×2 (06:31→19:30)
--- NOTE | 2018-08-22 06:42 | HP ---
Date/Time of Note Date/Time of Note DATE: 08/22/18 TIME: 06:33 Assessment/Plan VTE Prophylaxis Risk score (from Nsg)>0 risk: 13 SCD applied (from Ns): No SCD contraindicated: other (on.) Pharmacological prophylaxis: apixaban Lines/Catheters IV C[facility] Type [facility]from [facility]): [place] line still needed: No Urinary Cath still in place: No Reason Cath still needed: urinary retention Assessment/Plan Assessment/Plan 1. Ischemic heart disease angina three-vessel coronary a. disease.s/p CABG x5 08/13/18: WINN to LAD, SVG to ramus sequence to obtuse marginal artery, SVG to PDA, SVG to left ventricular extension branch. Difficult case per Dr. Howell with poor targets.Vein harvesting and epiaortic scanning of the ascending aorta.CAD: s/p multiple prior PCIs. Cath 08/11/18 with multivessel disease. 2. Hypertension with congestive heart failure diastolic- improved. Now euvolemic. 3. Diabetes mellitus type 2 blood sugar better controlled. On Iv insulin. 4. History of cholecystitis and pancreatitis 5. Acute on chronic kidney disease with baseline creatinine being 1.6 up to 3.5 came down to 2.05 yesterday and 1.95 today. Improved after hydration,now mildly dehydrated; 6. Dyslipidemia better controlled 7. History of nasal bleeding recurrent- stable. 8. Morbid obesity with snoring and apnea and daytime sleepiness 9. BPH with nocturia 10. Low back pain with radiculopathy 11. 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 Status post cataract ectomy 13. Diabetic nephropathy retinopathy and angiopathy and neuropathy. 14. Constipation- improved. 15. Grief reaction after the of her 16. Gastroesophageal reflux disease 17. Deep venous thrombosis of the left saphenous vein, 2-3 months ago;was on Eliquis 5 mg twice daily, stopped: since 08/11/2018. 18. Gastritis 19. COPD. Quit smoking 10years ago. 02sat now 95% with persistent cough. 20. History of nephrolithiasis. 21. Drop of hematocrit; s/p 2 units of prbc tx. stable. 22. Drop of albumone and total protein and mild elevation of lft's. 23.Myopathy 24.Lethargy 25.Acute on chronic kidney disease, improving 25.Unstable gate Results 24hrs Laboratory Tests Test 08/21/18 22:09 Bedside Glucose 139 HPI/ROS Admit Date/Time Admit Date/Time August 21, 2018 at 18:31 Hx of Present Illness CP, right leg pain, severe weakness with sob. ROS S/P CABG,now with slow recovery and unstable gate with severe weakness. Constitutional: no complaints, improved; No chills, No diaphoresis, No disoriented, No fatigue, No febrile, No nausea, No poor po, No weight change, No other Eyes: No no complaints, No pain, No discharge, No redness, No visual change, No other ENT: No no complaints, No bleeding, No pain, No congestion, No discharge, No dysphagia, No sore throat, No other Respiratory: cough, pleuritic pain, sputum; No no complaints, No pain, No shortness of breath, No wheezing, No other Cardiovascular: chest pain, orthopenea, palpitations; No no complaints, No edema, No lightheadedness, No paroxysmal nocturnal dyspnea, No other Gastrointestinal: constipation, decreased appetite; No no complaints, No pain, No blood, No diarrhea, No flatus, No nausea, No passing stool, No vomiting, No other Genitourinary: dysuria; No no complaints, No bleeding, No discharge, No flank pain, No hematuria, No other Musculoskeletal: back pain; No no complaints, No bone/joint pain, No neck pain, No restricted range of motion, No swelling, No other Skin: No no complaints, No bruising, No erythema, No laceration, No pruritis, No rash, No skin lesions, No other Neurologic: headache; No no complaints, No confusion, No dizziness, No focal-weakness, No syncope, No seizure, No other PMH/Family/Social Past Medical History Medical History: angina, colitis, congestive heart failure, coronary artery disease, deep vein thrombosis, diabetes, diverticulitis, gallstones, GERD, GI bleed, high cholesterol, hypertension, pancreatitis, peptic ulcer disease, urinary tract infection Medications Current Medications Hydromorphone HCl (Dilaudid) 0.2 mg Q15M PRN IV PAIN LEVEL 1-5; Start 08/21/18 at 21:08 Hydromorphone HCl (Dilaudid) 0.4 mg Q15M PRN IV PAIN LEVEL 6-10; Start 08/21/18 at 21:08 Ondansetron HCl (Zofran Inj) 4 mg Q6H PRN IV NAUSEA AND/OR VOMITING; Start 08/21 at 21:08 Albumin Human 250 ml @ 500 mls/hr PRN PRN IV CVP< 8, OR SBP<90; Start 08/21/18 at 21:08 Clopidogrel Bisulfate (plaVIX) 75 mg DAILY NGT ; Start 08/21/18 at 21:08 Levalbuterol (Xopenex Neb) 1.25 mg Q6H RESP THERAPY HHN Last administered on 08/22/18at 06:31; Admin Dose 1.25 MG; Start 08/21/18 at 21:08 Ipratropium [place] (Atrovent 0.02% (Neb)) 0.5 mg Q6H RESP THERAPY HHN Last administered on 08/22/18at 06:30; Admin Dose 0.5 MG; Start 08/21/18 at 21:08 Diagnostic Test (Pha) (Accu-Chek) 1 ea 02 XX ; Start 08/21/18 at 21:08 Miscellaneous Information 1 ea NOTE XX ; Start 08/21/18 at 21:08 Glucose (Glutose) 15 gm Q15M PRN PO DECREASED GLUCOSE; Start 08/21/18 at 21:08 Glucose (Glutose) 22.5 gm Q15M PRN PO DECREASED GLUCOSE; Start 08/21/18 at 21:08 Dextrose (D50w Syringe) 25 ml Q15M PRN IV DECREASED GLUCOSE; Start 08/21/18 at 21:08 Dextrose (D50w Syringe) 50 ml Q15M PRN IV DECREASED GLUCOSE; Start 08/21/18 at 21:08 Glucagon (Glucagen) 1 mg Q15M PRN IM DECREASED GLUCOSE; Start 08/21/18 at 21:08 Glucose (Glutose) 15 gm Q15M PRN BUCCAL DECREASED GLUCOSE; Start 08/21/18 at 21:08 Furosemide (Lasix) 40 mg DAILY PO ; Start 08/21/18 at 21:08 Insulin Glargine (Lantus) 28 units 2300 SC Last administered on 08/21/18at 23:03; Admin Dose 28 UNITS; Start 08/21/18 at 21:08 Famotidine (Pepcid) 20 mg DAILY PO ; Start 08/21/18 at 21:08 Ferric Sodium Gluconate Complex 125 mg/Sodium Chloride 100 ml @ 100 mls/hr DAILY@1300 IVPB ; Start 08/21/18 at 21:08; Stop 08/22/18 at 13:59 Insulin Aspart (Novolog Insulin Pen) 10 unit WITH MEALS SC ; Start 08/21/18 at 21:08 Insulin Aspart (Novolog Insulin Pen) NOVOLOG *MODERATE* ALGORITHM WITH MEALS BEDTIME SC ; Start 08/21/18 at 21:08 Morphine Sulfate (morphine) 1 mg Q4H PRN IV SEVERE PAIN LEVEL 7-10; Start 08/21/18 at 21:08 Oxycodone/ Acetaminophen (Endocet (10/ 325)) 1 tab Q4H PRN PO MODERATE PAIN LEVEL 4-6; Start 08/21/18 at 21:08 Hydralazine HCl (Apresoline) 10 mg Q4H PRN IV SBP >150; Start 08/21/18 at 21:30 Acetaminophen (Tylenol Tab) 650 mg Q3H PRN PO ELEVATED TEMPERATURE; Start 08/21/18 at 22:00 Albumin Human 100 ml @ 100 mls/hr TID IV Last administered on 08/21/18at 22:53; Admin Dose 100 MLS/HR; Start 08/21/18 at 21:48; Stop 08/22/18 at 13:00 Apixaban (Eliquis) 5 mg BID PO Last administered on 08/21/18at 22:50; Admin Dose 5 MG; Start 08/21/18 at 21:49 Ascorbic Acid (Vitamin C) 500 mg TID NGT Last administered on 08/21/18at 22:50; Admin Dose 500 MG; Start 08/21/18 at 21:49 Atorvastatin Calcium (Lipitor) 40 mg HS PO Last administered on 08/21/18at 22:51; Admin Dose 40 MG; Start 08/21/18 at 21:51 Carvedilol (Coreg) 12.5 mg BID PO Last administered on 08/21/18at 22:50; Admin Dose 12.5 MG; Start 08/21/18 at 21:51 Docusate Sodium (Colace) 250 mg BID PO Last administered on 08/21/18at 22:51; Admin Dose 250 MG; Start 08/21/18 at 21:51 Polyethylene Glycol (Miralax) 17 gm TID PO Last administered on 08/21/18at 22:51; Admin Dose 17 GM; Start 08/21/18 at 21:53 Amlodipine Besylate (Norvasc) 5 mg DAILY PO ; Start 08/22/18 at 09:00 Coded Allergies: No Known Allergy (Unverified , 08/11/18) Past Surgical History Past Surgical Hx: angioplasty, cholecystectomy, coronary bypass surgery, endoscopy Family History Significant Family History: no pertinent family hx Social History Alcohol Use: rarely Smoking Status: Never smoker Drug Use: none Exam/Review of Systems Vital Signs Vitals Vital Signs Date Temp Pulse Resp B/P (MAP) Pulse Ox O2 O2 Flow FiO2 Time Delivery Rate 08/22/18 98.1 66 18 124/60 94 Nasal 2.0 02:00 (81) Cannula Intake and Output 08/21/18 08/21/18 08/22/18 1515:00 23:00 07:00 OutputOutput Total 400 ml BalanceBalance -400 ml Exam Constitutional: alert, oriented, well developed Psych: anxiety, confusion (on and off.) Head: normocephalic, atraumatic; No lacerations, No hematomas, No other Eyes: EOMI, nl lids, PERRL; No nl conjunctiva, No nl sclera, No icteric, No fundi, disc, No other ENMT: No nl external ears & nose, No nl lips & teeth, No nl nasal mucosa & septum, No mucosa pink and moist, No intubated, No tympanic membranes, No other Neck: jvd, bruits; No supple, No non-tender, No masses, No thyromegaly, No nuchal rigidity, No other Respiratory: clear to auscultation, congested cough, diminished breath sounds; No normal air movement, No crackles/rales, No intercostal retraction, No labored breathing, No respirations, No tactile fremitus, No wheezing, No other Cardiovascular: regular rate and rhythm, bruits, edema, jugular venous distention (JVD), systolic murmur, other (s/p cabg changes.); No nl pulses, No diastolic murmur, No gallop, No irregular rhythm, No murmurs/extra sounds, No rub, No S3, No S4 Gastrointestinal: soft, bowel sounds, distended; No nl liver, spleen, No non-tender, No ascites, No firm, No hepatomegaly, No mass, No rebound or guarding, No splenomegaly, No surgical scars, No tender, No other Genitourinary - Male: nl penis, nl scrotum Musculoskeletal: nl gait and stance (unstable.), joint tenderness, muscle tone (decreased.), muscle weakness; No nl extremities to inspection, No range of motion, No spine non-tender, No swelling, No other Extremities: edema, pitting pedal edema, tenderness; No normal pulses, No calf tenderness, No cyanosis, No clubbing, No palpable cord, No other 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: SCENIC ARTIST II-XII intact, nl mental status (now.), nl speech, nl strength, lethargic, numbness Skin: nl turgor; No rash or lesions, No diaphoresis, No ecchymosis, No laceration, No puncture, No other Lymph: No nl lymph nodes, No enlarged, No nontender, No other NERIS BROTHERS MD August 22, 2018 06:42
[2018-08-22 07:30] VITALS: BP 127/61; PULSE 64; RESP 20
[2018-08-22] MEDS: INSULIN ASPART [NOVOLOG] 3 ML PEN SC SCH ×7 (07:57→21:38)
[2018-08-22] MEDS: DOCUSATE SODIUM 250 MG CAP PO SCH ×2 (08:49→21:31)
[2018-08-22] MEDS: POLYETHYLENE GLYCOL 17 GM PACKET PO SCH ×3 (08:49→21:33)
[2018-08-22] MEDS: AMLODIPINE 5 MG TAB PO SCH (08:50)
[2018-08-22] MEDS: CLOPIDOGREL 75 MG TAB NGT SCH (08:50)
[2018-08-22] MEDS: ASCORBIC ACID 500 MG TAB NGT SCH ×3 (08:50→21:31)
[2018-08-22] MEDS: FAMOTIDINE 20 MG TAB PO SCH (08:50)
[2018-08-22] MEDS: APIXABAN 5 MG TABLET PO SCH ×2 (08:50→21:32)
[2018-08-22] MEDS: OXYCODONE/ACETAMINOPHEN (10/325) TAB PO PRN ×2 (08:51→21:31)
[2018-08-22] MEDS: FUROSEMIDE 40 MG TAB PO SCH (08:51)
[2018-08-22] MEDS: ALBUMIN HUMAN 25% 100 ML IV SCH ×2 (08:52→12:02)
[2018-08-22] MEDS ORDERED: BISACODYL 10 MG SUPP PR PRN (11:00)
[2018-08-22] MEDS ORDERED: LACTULOSE 30ML CUP PO PRN (11:00)
[2018-08-22] MEDS: GABAPENTIN 100 MG CAP PO SCH ×2 (11:39→21:31)
[2018-08-22 14:00] VITALS: BP 118/62; PULSE 61; RESP 20
--- NOTE | 2018-08-22 16:24 | CONS ---
DATE OF ADMISSION: 08/21/2018 DATE OF CONSULTATION: 08/22/2018 REHABILITATION POST ADMISSION PHYSICIAN EVALUATION REHABILITATION IMPAIRMENT CATEGORY: Critical illness myopathy. ACTIVE COMORBIDITIES: 1. Coronary artery disease status post 5-vessel CABG. 2. Status post acute respiratory failure. 3. Acute on chronic kidney disease. 4. Lumbar radiculopathy with right lower extremity symptoms. 5. Oropharyngeal dysphagia on mechanical soft diet. 6. Chronic obstructive pulmonary disease. 7. Diabetes mellitus type 2. 8. Hypertension. 9. Hyperlipidemia. 10. Osteoarthritis affecting multiple joints, including bilateral knees. 11. Diabetic retinopathy. 12. Anemia of chronic disease. 13. Benign prostatic hypertrophy. 14. Impairments in self-care and mobility. HISTORY OF PRESENT ILLNESS: The patient is a 73-year-old gentleman with a history of multiple medical comorbidities who was noted to have severe coronary artery disease and was admitted to [facility] and then underwent 5-vessel CABG on 08/13/2018. The patient's postoperative course was notable for worsening renal failure in addition to acute respiratory failure requiring ventilatory support. The patient was eventually extubated. The patient noted to have significant impairments in self-care. Patient noted to have significant weakness in proximal weakness and felt to have a critical illness myopathy. Patietn also with right lower extremity pain, radiating from back. The patient with significant impairments in self-care and mobility as compared to baseline, and the patient has been cleared to transfer to the rehabilitation unit for comprehensive interdisciplinary rehab care. FUNCTIONAL HISTORY: Prior to recent events, he was independent in self-care tasks and mobility. Currently, he requires maximal assist. I have reviewed the preadmission screen and patient's current functional status is consistent with the preadmission screen. FAMILY AND SOCIAL HISTORY: The patient lives at home and hopes to return there upon discharge. PAST MEDICAL HISTORY: 1. Coronary artery disease. 2. Hypertension. 3. Diabetes mellitus type 2. 4. Hyperlipidemia. 5. Lumbar radiculopathy. 6. Gastroesophageal reflux disease. 7. Chronic kidney disease with diabetic nephropathy. 8. Chronic obstructive pulmonary disease. 9. Diabetic neuropathy. 10. History of pancreatitis. 11. Osteoarthritis. 12. History of deep venous thrombosis. CURRENT MEDICATIONS: 1. Norvasc 5 mg p.o. daily. 2. Eliquis 5 mg p.o. b.i.d. 3. Vitamin C 500 mg p.o. t.i.d. 4. Lipitor 40 mg p.o. at bedtime. 5. Coreg 12.5 mg p.o. b.i.d. 6. Plavix 75 mg daily. 7. Insulin sliding scale. 8. Pepcid 20 mg daily. 9. Lasix 40 mg p.o. daily. 10. NovoLog 10 units subcutaneous with meals. 11. Lantus 28 units subcutaneous daily. 12. Levemir. 13. Levalbuterol inhaler. 14. Endocet p.r.n. 15. MiraLax t.i.d. ALLERGIES: THE PATIENT WITH NO KNOWN DRUG ALLERGIES. PHYSICAL EXAMINATION: VITAL SIGNS: The patient is currently afebrile with stable vital signs. HEENT: Extraocular motions are intact. Oropharynx clear. NECK: Supple. LUNGS: Clear anteriorly. CARDIAC: S1, S2. ABDOMEN: Soft, nontender, positive bowel sounds. NEUROLOGIC: He is awake and alert. He is oriented to person and hospital. He will follow simple 1-step commands. He demonstrates antigravity strength in bilateral upper extremity and lower extremity. He does have some impaired dynamic balance. He does have some pain with range of motion in the right lower extremity, straight leg raise. PLAN: The patient has been admitted for comprehensive interdisciplinary acute rehab and is anticipated to tolerate 3 hours of daily therapy in divided doses for at least 5 out of 7 days a week. The treatment plan will include: 1. Physical therapy to focus on bed mobility, transfers, and household ambulation with the goal of having the patient reach a standby assist level. 2. Occupational therapy to focus on hygiene, grooming, dressing, bathing, and toileting activities with the goal of having the patient reach a standby assist level. 3. Rehabilitation nursing for carryover of therapeutic interventions, the goal of continent of bowel and bladder, and the goal of patient education with regards to the aforementioned issues. ESTIMATED LENGTH OF STAY: 14 days. DISPOSITION GOAL: Home with family. REHABILITATION BARRIER: Pain. INTERVENTION FOR BARRIER: Interdisciplinary approach. As a board certified rehabilitation engineer in physical medicine and rehabilitation, I attest that this patient qualifies for an interdisciplinary acute rehabilitation unit stay and is best managed at this level of care given the complexity of medical issues in addition to the significant impairments in self-care and mobility. After thorough review of the patient's medical records and full examination, I believe that the patient meets criteria for acute rehabilitation unit level of care under CMS guidelines, and is anticipated to make reasonable goals in a reasonable period of time as outlined above. Dictated By: YARIEL CELESTIN/BOBBY Conf#: [id number] DID#: [id number] MTDD
[2018-08-22] MEDS: MAGNESIUM HYDROXIDE 30ML CUP PO PRN (17:19)
--- NOTE | 2018-08-22 18:13 | CONS ---
Assessment/Plan Assessment/Plan Assessment/Plan (Daily) 1. acute kidney injury vs possible baseline CKD II due to ishcemic ATN + Hemodynamics 2. 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 H/o HTN 4. H/o HL 5. H/o DM II 6. H/o CAD with previous stent placement 7. Anemia of chronic disease with iron deficiency Plan: BUN/Cr improved to 47/1.7- other electrolytes stable, continue Lasix 40mg po daily, amlodipine 5 mg po daily will follow up Consultation Date/Type/Reason Admit Date/Time August 21, 2018 at 18:31 Initial Consult Date Date/Time of Note DATE: 08/22/18 TIME: 18:13 Exam/Review of Systems Exam Vitals Vital Signs Date Temp Pulse Resp B/P (MAP) Pulse Ox O2 O2 Flow FiO2 Time Delivery Rate 08/22/18 97.9 61 20 118/62 96 Nasal 2.0 14:00 (80) Cannula Intake and Output 08/21/18 08/21/18 08/22/18 1414:59 22:59 06:59 OutputOutput Total 1000 ml BalanceBalance -1000 ml Exam Constitutional: alert, awake no acute distress Respiratory: clear to auscultation, normal air movement, diminished breath sounds Cardiovascular: regular rate and rhythm, nl pulses, + midline Chest scar healthy Gastrointestinal: soft, non-tender Musculoskeletal: nl extremities to inspection Extremities: normal pulses , Dressign in place, + mancia catheter in place 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: EAR SPECIALIST II-XII intact, nl mental status, nl speech, nl strength Results Result Diagram: 08/22/18 0708 08/22/18 0708 Results 24hrs Laboratory Tests Test 08/21/18 22:09 08/22/18 07:08 08/22/18 07:54 08/22/18 11:36 Bedside Glucose 139 158 232 H White Blood Count 6.8 # Red Blood Count 3.00 L Hemoglobin 8.6 L Hematocrit 27.0 L Mean Corpuscular Volume 90.0 Mean Corpuscular 28.7 L Hemoglobin Mean Corpuscular 31.9 L Hemoglobin Concent Red Cell Distribution 13.9 Width Platelet Count 183 Mean Platelet Volume 11.2 H Immature Granulocytes % 0.700 H Neutrophils % 66.7 Lymphocytes % 16.7 Monocytes % 10.0 Eosinophils % 5.3 Basophils % 0.6 Nucleated Red Blood 0.0 Cells % Immature Granulocytes # 0.050 H Neutrophils # 4.5 Lymphocytes # 1.1 Monocytes # 0.7 Eosinophils # 0.4 Basophils # 0.0 Nucleated Red Blood 0.0 Cells # Sodium Level 136 Potassium Level 3.5 Chloride Level 97 Carbon Dioxide Level 29 Anion Gap 10 Blood Urea Nitrogen 47 H Creatinine 1.71 H Est Glomerular Filtrat Rate mL/min Glucose Level 145 Calcium Level 8.5 Total Bilirubin 0.8 Direct Bilirubin 0.00 Indirect Bilirubin 0.8 Aspartate Amino 30 Transf (AST/SGOT) Alanine 31 Aminotransferase (ALT/SG PT) Alkaline Phosphatase 56 Total Protein 6.6 Albumin 3.4 Globulin 3.20 Albumin/Globulin Ratio 1.06 Test 08/22/18 17:17 Bedside Glucose 180 Medications Medication Current Medications Hydromorphone HCl (Dilaudid) 0.2 mg Q15M PRN IV PAIN LEVEL 1-5; Start 08/21/18 at 21:08 Hydromorphone HCl (Dilaudid) 0.4 mg Q15M PRN IV PAIN LEVEL 6-10; Start 08/21/18 at 21:08 Ondansetron HCl (Zofran Inj) 4 mg Q6H PRN IV NAUSEA AND/OR VOMITING; Start 08/21/18 at 21:08 Albumin Human 250 ml @ 500 mls/hr PRN PRN IV CVP< 8, OR SBP<90; Start 08/21/18 at 21:08 Clopidogrel Bisulfate (plaVIX) 75 mg DAILY NGT Last administered on 08/22/18at 08:50; Admin Dose 75 MG; Start 08/21/18 at 21:08 Levalbuterol (Xopenex Neb) 1.25 mg Q6H RESP THERAPY HHN Last administered on 08/22/18at 06:31; Admin Dose 1.25 MG; Start 08/21/18 at 21:[address] [place] (Atrovent 0.02% (Neb)) 0.5 mg Q6H RESP THERAPY HHN Last administered on 08/22/18at 06:30; Admin Dose 0.5 MG; Start 08/21/18 at 21:08 Diagnostic Test (Pha) (Accu-Chek) 1 ea 02 XX ; Start 08/21/18 at 21:08 Miscellaneous Information 1 ea NOTE XX ; Start 08/21/18 at 21:08 Glucose (Glutose) 15 gm Q15M PRN PO DECREASED GLUCOSE; Start 08/21/18 at 21:08 Glucose (Glutose) 22.5 gm Q15M PRN PO DECREASED GLUCOSE; Start 08/21/18 at 21:08 Dextrose (D50w Syringe) 25 ml Q15M PRN IV DECREASED GLUCOSE; Start 08/21/18 at 21:08 Dextrose (D50w Syringe) 50 ml Q15M PRN IV DECREASED GLUCOSE; Start 08/21/18 at 21:08 Glucagon (Glucagen) 1 mg Q15M PRN IM DECREASED GLUCOSE; Start 08/21/18 at 21:08 Glucose (Glutose) 15 gm Q15M PRN BUCCAL DECREASED GLUCOSE; Start 08/21/18 at 21:08 Furosemide (Lasix) 40 mg DAILY PO Last administered on 08/22/18 08:51; Admin Dose 40 MG; Start 08/21/18 at 21:08 Insulin Glargine (Lantus) 28 units 2300 SC Last administered on 08/21/18at 23:03; Admin Dose 28 UNITS; Start 08/21/18 at 21:08 Famotidine (Pepcid) 20 mg DAILY PO Last administered on 08/22/18 08:50; Admin Dose 20 MG; Start 08/21/18 at 21:08 Insulin Aspart (Novolog Insulin Pen) 10 unit WITH MEALS SC Last administered on 08/22/18at 17:21; Admin Dose 10 UNIT; Start 08/21/18 at 21:08 Insulin Aspart (Novolog Insulin Pen) NOVOLOG *MODERATE* ALGORITHM WITH MEALS BEDTIME SC Last administered on 08/22/18at 17:22; Admin Dose 2 UNIT; Start 08/21/18 at 21:08 Morphine Sulfate (morphine) 1 mg Q4H PRN IV SEVERE PAIN LEVEL 7-10; Start 08/21/18 at 21:08 Oxycodone/ Acetaminophen (Endocet (10/ 325)) 1 tab Q4H PRN PO MODERATE PAIN LEVEL 4-6 Last administered on 08/22/18at 08:51; Admin Dose 1 TAB; Start 08/21/18 at 21:08 Hydralazine HCl (Apresoline) 10 mg Q4H PRN IV SBP >150; Start 08/21/18 at 21:30 Acetaminophen (Tylenol Tab) 650 mg Q3H PRN PO ELEVATED TEMPERATURE; Start 08/21/18 at 22:00 Apixaban (Eliquis) 5 mg BID PO Last administered on 08/22/18 08:50; Admin Dose 5 MG; Start 08/21/18 at 21:49 Ascorbic Acid (Vitamin C) 500 mg TID NGT Last administered on 08/22/18 12:44; Admin Dose 500 MG; Start 08/21/18 at 21:49 Atorvastatin Calcium (Lipitor) 40 mg HS PO Last administered on 08/21/18 22:51; Admin Dose 40 MG; Start 08/21/18 at 21:51 Carvedilol (Coreg) 12.5 mg BID PO Last administered on 08/22/18 08:50; Admin Dose 12.5 MG; Start 08/21/18 at 21:51 Docusate Sodium (Colace) 250 mg BID PO Last administered on 08/22/18 08:49; Admin Dose 250 MG; Start 08/21/18 at 21:51 Polyethylene Glycol (Miralax) 17 gm TID PO Last administered on 08/22/18 12:44; Admin Dose 17 GM; Start 08/21/18 at 21:53 Amlodipine Besylate (Norvasc) 5 mg DAILY PO Last administered on 08/22/18 08:50; Admin Dose 5 MG; Start 08/22/18 at 09:00 Magnesium Hydroxide (Milk Of Mag) 30 ml BID PRN PO CONSTIPATION Last administered on 08/22/18 17:19; Admin Dose 30 ML; Start 08/22/18 at 11:00 Gabapentin (Neurontin) 100 mg BID PO Last administered on 08/22/18 11:39; Admin Dose 100 MG; Start 08/22/18 at 11:00 Lactulose (Enulose) 20 gm DAILY PRN PO CONSTIPATION Last administered on 08/22/18 12:44; Admin Dose 20 GM; Start 08/22/18 at 11:00 Bisacodyl (Dulcolax Supp) 10 mg DAILY PRN [place] CONSTIPATION; Start 08/22/18 at 11:00 DARRYL SOOD MD August 22, 2018 18:13
[2018-08-22 19:55] VITALS: BP 154/69; PULSE 70; RESP 20
[2018-08-22] MEDS: ATORVASTATIN 40 MG TAB PO SCH (21:31)
[2018-08-23] MEDS: IPRATROPIUM (NEB) 0.5 MG/2.5 ML AMP HHN SCH ×4 (01:09→19:12)
[2018-08-23] MEDS: LEVALBUTEROL (NEB) 1.25 MG/0.5 ML AMP HHN SCH ×4 (01:09→19:12)
[2018-08-23] MEDS: INSULIN GLARGINE [LANTus] (100 UNITS/ML) SYG SC SCH ×2 (01:30→22:46)
[2018-08-23] MEDS: ACCU-CHEK XX SCH (02:00)
[2018-08-23 02:42] VITALS: BP 155/70; PULSE 56; RESP 20
--- NOTE | 2018-08-23 06:49 | PN ---
Date/Time of Note Date/Time of Note DATE: 08/23/18 TIME: 06:47 Assessment/Plan VTE Prophylaxis Risk score (from Ns)>0 risk: 17 [place] [facility] [place] contraindicated: other (Removed because he is walking.) Pharmacological prophylaxis: apixaban Lines/Catheters IV Catheter Type (from [facility]): [place] line still needed: No Urinary Cath still in place: No Reason Cath still needed: urinary retention Assessment/Plan Assessment/Plan 1. Ischemic heart disease angina three-vessel coronary a. disease.s/p CABG x5 08/13/18: WINN to LAD, SVG to ramus sequence to obtuse marginal artery, SVG to PDA, SVG to left ventricular extension branch. Difficult case per Dr. Howell with poor targets.Vein harvesting and epiaortic scanning of the ascending aorta.CAD: s/p multiple prior PCIs. Cath 08/11/18 with multivessel disease. 2. Hypertension with congestive heart failure diastolic- improved. Now euvolemic. 3. Diabetes mellitus type 2 blood sugar better controlled. 4. History of cholecystitis and pancreatitis 5. Acute on chronic kidney disease with baseline creatinine being 1.6 up to 3.5 came down to 2.05 yesterday and 1.95 today. Improved after hydration,now mildly dehydrated; 6. Dyslipidemia better controlled 7. History of nasal bleeding recurrent- stable. 8. Morbid obesity with snoring and apnea and daytime sleepiness 9. BPH with nocturia 10. Low back pain with radiculopathy 11. 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 Status post cataract ectomy 13. Diabetic nephropathy retinopathy and angiopathy and neuropathy. 14. Constipation- improved. 15. Grief reaction after the of her 16. Gastroesophageal reflux disease 17. Deep venous thrombosis of the left saphenous vein, 2-3 months ago;was on Eliquis 5 mg twice daily, stopped: since 08/11/2018. 18. Gastritis 19. COPD. Quit smoking 10years ago. 02sat now 95% with persistent cough. 20. History of nephrolithiasis. 21. Drop of hematocrit; s/p 2 units of prbc tx. stable. 22. Drop of albumone and total protein and mild elevation of lft's. 23.Myopathy 24.Lethargy 25.Acute on chronic kidney disease, improving 25.Unstable gate 26. Pain in the right leg compromising walking. Result Diagram: 08/22/18 0708 08/22/18 0708 Results 24hrs Laboratory Tests Test 08/22/18 07:08 08/22/18 07:54 08/22/18 11:36 08/22/18 17:17 White Blood Count 6.8 # Red Blood Count 3.00 L Hemoglobin 8.6 L Hematocrit 27.0 L Mean Corpuscular Volume 90.0 Mean Corpuscular 28.7 L Hemoglobin Mean Corpuscular 31.9 L Hemoglobin Concent Red Cell Distribution 13.9 Width Platelet Count 183 Mean Platelet Volume 11.2 H Immature Granulocytes % 0.700 H Neutrophils % 66.7 Lymphocytes % 16.7 Monocytes % 10.0 Eosinophils % 5.3 Basophils % 0.6 Nucleated Red Blood 0.0 Cells % Immature Granulocytes # 0.050 H Neutrophils # 4.5 Lymphocytes # 1.1 Monocytes # 0.7 Eosinophils # 0.4 Basophils # 0.0 Nucleated Red Blood 0.0 Cells # Sodium Level 136 Potassium Level 3.5 Chloride Level 97 Carbon Dioxide Level 29 Anion Gap 10 Blood Urea Nitrogen 47 H Creatinine 1.71 H Est Glomerular Filtrat Rate mL/min Glucose Level 145 Calcium Level 8.5 Total Bilirubin 0.8 Direct Bilirubin 0.00 Indirect Bilirubin 0.8 Aspartate Amino 30 Transf (AST/SGOT) Alanine 31 Aminotransferase (ALT/SG PT) Alkaline Phosphatase 56 Total Protein 6.6 Albumin 3.4 Globulin 3.20 Albumin/Globulin Ratio 1.06 Bedside Glucose 158 232 H 180 Test 08/22/18 21:30 08/23/18 01:29 Bedside Glucose 200 172 Subjective 24 Hr Interval Summary Free Text/Dictation Swelling decreased after the iv albumin and nausea improved. Generalized body ache. Weakness. Unable to get up without help. Cannot use right upper extremity mainly due to her pain and swelling. Sleepless. After doing giving cathartic the patient had only mild amount of very dry stool. Forgetful. Sleepless. Constitutional: improved, poor po, requiring O2; No no complaints, No chills, No diaphoresis, No disoriented, No febrile, No requiring IVF, No other Eyes: No no complaints, No pain, No discharge, No redness, No visual change, No other ENT: congestion; No no complaints, No bleeding, No pain, No discharge, No dysphagia, No sore throat, No other Respiratory: cough, shortness of breath; No no complaints, No pain, No pleuritic pain, No sputum, No wheezing, No other Cardiovascular: lightheadedness, orthopenea; No no complaints, No chest pain, No edema, No palpitations, No paroxysmal nocturnal dyspnea, No other Gastrointestinal: constipation, decreased appetite, flatus, passing stool; No no complaints, No pain, No blood, No diarrhea, No nausea, No vomiting, No other Genitourinary: flank pain; No no complaints, No bleeding, No dysuria, No discharge, No hematuria, No other Musculoskeletal: back pain, bone/joint pain, neck pain; No no complaints, No restricted range of motion, No swelling, No other Skin: erythema, pruritis; No no complaints, No bruising, No laceration, No rash, No skin lesions, No other Neurologic: confusion, dizziness; No no complaints, No focal-weakness, No headache, No syncope, No seizure, No other Endocrine: dry skin; No no complaints, No polyuria, No polydypsia, No temp intolerance, No other Psychological: anxiety; No no complaints, No nl mood/affect, No confusion, No depression, No suicidal, No other Immunologic: No no complaints, No immunodeficiency, No pruritis, No rhinitis, No urticaria, No other Exam/Review of Systems Exam Vitals Vital Signs Date Temp Pulse Resp B/P (MAP) Pulse Ox O2 O2 Flow FiO2 Time Delivery Rate 08/23/18 98.0 56 20 155/70 100 Nasal 02:42 (98) Cannula 08/23/18 2.0 01:09 Intake and Output 08/22/18 08/22/18 08/23/18 1515:00 23:00 07:00 IntakeIntake Total 500 ml 660 ml OutputOutput Total 150 ml 540 ml BalanceBalance 350 ml 120 ml Constitutional: alert, oriented, frail, obese; No well developed, No non-verbal, No distress, No other Psych: anxiety; No no complaints, No nl mood/affect, No confusion, No depression, No suicidal, No other Head: normocephalic, atraumatic; No lacerations, No hematomas, No other Eyes: EOMI; No nl conjunctiva, No nl lids, No nl sclera, No PERRL, No icteric, No fundi, disc, No other Neck: No supple, No non-tender, No jvd, No bruits, No masses, No thyromegaly, No nuchal rigidity, No other Respiratory: congested cough; No clear to auscultation, No normal air movement, No crackles/rales, No diminished breath sounds, No intercostal retraction, No labored breathing, No respirations, No tactile fremitus, No wheezing, No other Cardiovascular: regular rate and rhythm; No nl pulses, No bruits, No diastolic murmur, No edema, No gallop, No irregular rhythm, No jugular venous distention (JVD), No murmurs/extra sounds, No rub, No systolic murmur, No S3, No S4, No other Results Results 24hrs Laboratory Tests Test 08/22/18 07:08 08/22/18 07:54 08/22/18 11:36 08/22/18 17:17 White Blood Count 6.8 # Red Blood Count 3.00 L Hemoglobin 8.6 L Hematocrit 27.0 L Mean Corpuscular Volume 90.0 Mean Corpuscular 28.7 L Hemoglobin Mean Corpuscular 31.9 L Hemoglobin Concent Red Cell Distribution 13.9 Width Platelet Count 183 Mean Platelet Volume 11.2 H Immature Granulocytes % 0.700 H Neutrophils % 66.7 Lymphocytes % 16.7 Monocytes % 10.0 Eosinophils % 5.3 Basophils % 0.6 Nucleated Red Blood 0.0 Cells % Immature Granulocytes # 0.050 H Neutrophils # 4.5 Lymphocytes # 1.1 Monocytes # 0.7 Eosinophils # 0.4 Basophils # 0.0 Nucleated Red Blood 0.0 Cells # Sodium Level 136 Potassium Level 3.5 Chloride Level 97 Carbon Dioxide Level 29 Anion Gap 10 Blood Urea Nitrogen 47 H Creatinine 1.71 H Est Glomerular Filtrat Rate mL/min Glucose Level 145 Calcium Level 8.5 Total Bilirubin 0.8 Direct Bilirubin 0.00 Indirect Bilirubin 0.8 Aspartate Amino 30 Transf (AST/SGOT) Alanine 31 Aminotransferase (ALT/SG PT) Alkaline Phosphatase 56 Total Protein 6.6 Albumin 3.4 Globulin 3.20 Albumin/Globulin Ratio 1.06 Bedside Glucose 158 232 H 180 Test 08/22/18 21:30 08/23/18 01:29 Bedside Glucose 200 172 Medications Medication Current Medications Hydromorphone HCl (Dilaudid) 0.2 mg Q15M PRN IV PAIN LEVEL 1-5; Start 08/21/18 at 21:08 Hydromorphone HCl (Dilaudid) 0.4 mg Q15M PRN IV PAIN LEVEL 6-10; Start 08/21/18 at 21:08 Ondansetron HCl (Zofran Inj) 4 mg Q6H PRN IV NAUSEA AND/OR VOMITING; Start 08/21/18 at 21:08 Albumin Human 250 ml @ 500 mls/hr PRN PRN IV CVP< 8, OR SBP<90; Start 08/21/18 at 21:08 Clopidogrel Bisulfate (plaVIX) 75 mg DAILY NGT Last administered on 08/22/18at 08:50; Admin Dose 75 MG; Start 08/21/18 at 21:08 Levalbuterol (Xopenex Neb) 1.25 mg Q6H RESP THERAPY HHN Last administered on 08/23/18at 01:09; Admin Dose 1.25 MG; Start 08/21/18 at 21:08 Ipratropium [place] (Atrovent 0.02% (Neb)) 0.5 mg Q6H RESP THERAPY HHN Last administered on 08/23/18at 01:09; Admin Dose 0.5 MG; Start 08/21/18 at 21:08 Diagnostic Test (Pha) (Accu-Chek) 1 ea 02 XX Last administered on 08/23/18at 02:00; Admin Dose 1 EA; Start 08/21/18 at 21:08 Miscellaneous Information 1 ea NOTE XX ; Start 08/21/18 at 21:08 Glucose (Glutose) 15 gm Q15M PRN PO DECREASED GLUCOSE; Start 08/21/18 at 21:08 Glucose (Glutose) 22.5 gm Q15M PRN PO DECREASED GLUCOSE; Start 08/21/18 at 21:08 Dextrose (D50w Syringe) 25 ml Q15M PRN IV DECREASED GLUCOSE; Start 08/21/18 at 21:08 Dextrose (D50w Syringe) 50 ml Q15M PRN IV DECREASED GLUCOSE; Start 08/21/18 at 21:08 Glucagon (Glucagen) 1 mg Q15M PRN IM DECREASED GLUCOSE; Start 08/21/18 at 21:08 Glucose (Glutose) 15 gm Q15M PRN BUCCAL DECREASED GLUCOSE; Start 08/21/18 at 21:08 Furosemide (Lasix) 40 mg DAILY PO Last administered on 08/22/18 08:51; Admin Dose 40 MG; Start 08/21/18 at 21:08 Insulin Glargine (Lantus) 28 units 2300 SC Last administered on 08/23/18 01:30; Admin Dose 28 UNITS; Start 08/21/18 at 21:08 Famotidine (Pepcid) 20 mg DAILY PO Last administered on 08/22/18 08:50; Admin Dose 20 MG; Start 08/21/18 at 21:08 Insulin Aspart (Novolog Insulin Pen) 10 unit WITH MEALS SC Last administered on 08/22/18 17:21; Admin Dose 10 UNIT; Start 08/21/18 at 21:08 Insulin Aspart (Novolog Insulin Pen) NOVOLOG *MODERATE* ALGORITHM WITH MEALS BEDTIME SC Last administered on 08/22/18 21:38; Admin Dose 1 UNIT; Start 08/21/18 at 21:08 Morphine Sulfate (morphine) 1 mg Q4H PRN IV SEVERE PAIN LEVEL 7-10; Start 08/21/18 at 21:08 Oxycodone/ Acetaminophen (Endocet (10/ 325)) 1 tab Q4H PRN PO MODERATE PAIN LEVEL 4-6 Last administered on 08/22/18 21:31; Admin Dose 1 TAB; Start 08/21/18 at 21:08 Hydralazine HCl (Apresoline) 10 mg Q4H PRN IV SBP >150; Start 08/21/18 at 21:30 Acetaminophen (Tylenol Tab) 650 mg Q3H PRN PO ELEVATED TEMPERATURE; Start at 22:00 Apixaban (Eliquis) 5 mg BID PO Last administered on 08/22/18 21:32; Admin Dose 5 MG; Start 08/21/18 at 21:49 Ascorbic Acid (Vitamin C) 500 mg TID NGT Last administered on 08/22/18 21:31; Admin Dose 500 MG; Start 08/21/18 at 21:49 Atorvastatin Calcium (Lipitor) 40 mg HS PO Last administered on 08/22/18 21:31; Admin Dose 40 MG; Start 08/21/18 at 21:51 Carvedilol (Coreg) 12.5 mg BID PO Last administered on 08/22/18 21:32; Admin Dose 12.5 MG; Start 08/21/18 at 21:51 Docusate Sodium (Colace) 250 mg BID PO Last administered on 08/22/18 21:31; Admin Dose 250 MG; Start 08/21/18 at 21:51 Polyethylene Glycol (Miralax) 17 gm TID PO Last administered on 08/22/18 21:33; Admin Dose 17 GM; Start 08/21/18 at 21:53 Amlodipine Besylate (Norvasc) 5 mg DAILY PO Last administered on 08/22/18 08 :50; Admin Dose 5 MG; Start 08/22/18 at 09:00 Magnesium Hydroxide (Milk Of Mag) 30 ml BID PRN PO CONSTIPATION Last administered on 08/22/18 17:19; Admin Dose 30 ML; Start 08/22/18 at 11:00 Gabapentin (Neurontin) 100 mg BID PO Last administered on 08/22/18 21:31; Admin Dose 100 MG; Start 08/22/18 at 11:00 Lactulose (Enulose) 20 gm DAILY PRN PO CONSTIPATION Last administered on 08/22/18 12:44; Admin Dose 20 GM; Start 08/22/18 at 11:00 Bisacodyl (Dulcolax Supp) 10 mg DAILY PRN [place] CONSTIPATION; Start 08/22/18 at 11:00 Ciprofloxacin (Cipro) 500 mg BID@06,18 NGT ; Start 08/23/18 at 06:36 NERIS BROTHERS MD August 23, 2018 06:49
[2018-08-23] MEDS ORDERED: morphine 2 MG INJ IV PRN (07:00)
[2018-08-23] MEDS: INSULIN ASPART [NOVOLOG] 3 ML PEN SC SCH ×7 (07:55→21:00)
[2018-08-23 08:00] VITALS: BP 135/65; PULSE 78; RESP 18
--- NOTE | 2018-08-23 08:10 | CONS ---
Assessment/Plan Assessment/Plan Assessment/Plan (Daily) 1. acute kidney injury vs possible baseline CKD II due to ishcemic ATN + Hemodynamics 2. 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 H/o HTN 4. H/o HL 5. H/o DM II 6. H/o CAD with previous stent placement 7. Anemia of chronic disease with iron deficiency Plan: BUN/Cr bumped to 48/1.82, Bp stable - other electrolytes stable, continue Lasix 40mg po daily, amlodipine 5 mg po daily, Eliquis 5mg pO BID will follow up Consultation Date/Type/Reason Admit Date/Time August 21, 2018 at 18:31 Initial Consult Date Date/Time of Note DATE: 08/23/18 TIME: 08:10 24 HR Interval Summary Free Text/Dictation BUN/Cr bumped to 48/1.82, Bp stable Exam/Review of Systems Exam Vitals Vital Signs Date Temp Pulse Resp B/P (MAP) Pulse Ox O2 O2 Flow FiO2 Time Delivery Rate 08/23/18 98.0 56 20 155/70 100 Nasal 02:42 (98) Cannula 08/23/18 2.0 01:09 Intake and Output 08/22/18 08/22/18 08/23/18 1515:00 23:00 07:00 IntakeIntake Total 500 ml 660 ml OutputOutput Total 150 ml 540 ml BalanceBalance 350 ml 120 ml Constitutional: alert Psych: no complaints Head: normocephalic Neck: supple, non-tender Respiratory: clear to auscultation, diminished breath sounds Cardiovascular: regular rate and rhythm, nl pulses Gastrointestinal: soft, non-tender Musculoskeletal: nl extremities to inspection, swelling Extremities: normal pulses 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: [employer] II-XII intact, nl mental status, nl speech, nl strength Results Result Diagram: 08/22/18 0708 08/22/18 0708 Results 24hrs Laboratory Tests Test 08/22/18 11:36 08/22/18 17:17 08/22/18 21:30 08/23/18 01:29 Bedside Glucose 232 H 180 200 172 Test 08/23/18 07:51 Bedside Glucose 184 Medications Medication Current Medications Hydromorphone HCl (Dilaudid) 0.2 mg Q15M PRN IV PAIN LEVEL 1-5; Start 08/21/18 at 21:08 Hydromorphone HCl (Dilaudid) 0.4 mg Q15M PRN IV PAIN LEVEL 6-10; Start 08/21/18 at 21:08 Ondansetron HCl (Zofran Inj) 4 mg Q6H PRN IV NAUSEA AND/OR VOMITING; Start 08/21/18 at 21:08 Albumin Human 250 ml @ 500 mls/hr PRN PRN IV CVP< 8, OR SBP<90; Start 08/21/18 at 21:08 Clopidogrel Bisulfate (plaVIX) 75 mg DAILY NGT Last administered on 08/22/18at 08:50; Admin Dose 75 MG; Start 08/21/18 at 21:08 Levalbuterol (Xopenex Neb) 1.25 mg Q6H RESP THERAPY HHN Last administered on 08/23/18at 01:09; Admin Dose 1.25 MG; Start 08/21/18 at 21:08 Ipratropium [place] (Atrovent 0.02% (Neb)) 0.5 mg Q6H RESP THERAPY HHN Last administered on 08/23/18at 01:09; Admin Dose 0.5 MG; Start 08/21/18 at 21:08 Diagnostic Test (Pha) (Accu-Chek) 1 ea 02 XX Last administered on 08/23/18at 02:00; Admin Dose 1 EA; Start 08/21/18 at 21:08 Miscellaneous Information 1 ea NOTE XX ; Start 08/21/18 at 21:08 Glucose (Glutose) 15 gm Q15M PRN PO DECREASED GLUCOSE; Start 08/21/18 at 21:08 Glucose (Glutose) 22.5 gm Q15M PRN PO DECREASED GLUCOSE; Start 08/21/18 at 21:08 Dextrose (D50w Syringe) 25 ml Q15M PRN IV DECREASED GLUCOSE; Start 08/21/18 at 21:08 Dextrose (D50w Syringe) 50 ml Q15M PRN IV DECREASED GLUCOSE; Start 08/21/18 at 21:08 Glucagon (Glucagen) 1 mg Q15M PRN IM DECREASED GLUCOSE; Start 08/21/18 at 21:08 Glucose (Glutose) 15 gm Q15M PRN BUCCAL DECREASED GLUCOSE; Start 08/21/18 at 21:08 Furosemide (Lasix) 40 mg DAILY PO Last administered on 08/22/18at 08:51; Admin Dose 40 MG; Start 08/21/18 at 21:08 Insulin Glargine (Lantus) 28 units 2300 SC Last administered on 08/23/18 01:30; Admin Dose 28 UNITS; Start 08/21/18 at 21:08 Famotidine (Pepcid) 20 mg DAILY PO Last administered on 08/22/18 08:50; Admin Dose 20 MG; Start 08/21/18 at 21:08 Insulin Aspart (Novolog Insulin Pen) 10 unit WITH MEALS SC Last administered on 08/23/18 07:55; Admin Dose 10 UNIT; Start 08/21/18 at 21:08 Insulin Aspart (Novolog Insulin Pen) NOVOLOG *MODERATE* ALGORITHM WITH MEALS BEDTIME SC Last administered on 08/23/18 07:56; Admin Dose 4 UNIT; Start 08/21/18 at 21:08 Oxycodone/ Acetaminophen (Endocet (10/ 325)) 1 tab Q4H PRN PO MODERATE PAIN LEVEL 4-6 Last administered on 08/22/18 21:31; Admin Dose 1 TAB; Start 08/21/18 at 21:08 Hydralazine HCl (Apresoline) 10 mg Q4H PRN IV SBP >150; Start 08/21/18 at 21:30 Acetaminophen (Tylenol Tab) 650 mg Q3H PRN PO ELEVATED TEMPERATURE; Start 08/21/18 at 22:00 Apixaban (Eliquis) 5 mg BID PO Last administered on 08/22/18 21:32; Admin Dose 5 MG; Start 08/21/18 at 21:49 Ascorbic Acid (Vitamin C) 500 mg TID NGT Last administered on 08/22/18 21:31; Admin Dose 500 MG; Start 08/21/18 at 21:49 Atorvastatin Calcium (Lipitor) 40 mg HS PO Last administered on 08/22/18 21:31; Admin Dose 40 MG; Start 08/21/18 at 21:51 Carvedilol (Coreg) 12.5 mg BID PO Last administered on 08/22/18 21:32; Admin Dose 12.5 MG; Start 08/21/18 at 21:51 Docusate Sodium (Colace) 250 mg BID PO Last administered on 08/22/18 21:31; Admin Dose 250 MG; Start 08/21/18 at 21:51 Polyethylene Glycol (Miralax) 17 gm TID PO Last administered on 08/22/18at 21:33; Admin Dose 17 GM; Start 08/21/18 at 21:53 Amlodipine Besylate (Norvasc) 5 mg DAILY PO Last administered on 08/22/18at 08:50; Admin Dose 5 MG; Start 08/22/18 at 09:00 Magnesium Hydroxide (Milk Of Mag) 30 ml BID PRN PO CONSTIPATION Last administered on 08/22/18at 17:19; Admin Dose 30 ML; Start 08/22/18 at 11:00 Gabapentin (Neurontin) 100 mg BID PO Last administered on 08/22/18at 21:31; Admin Dose 100 MG; Start 08/22/18 at 11:00 Lactulose (Enulose) 20 gm DAILY PRN PO CONSTIPATION Last administered on 08/22/18at 12:44; Admin Dose 20 GM; Start 08/22/18 at 11:00 Bisacodyl (Dulcolax Supp) 10 mg DAILY PRN [place] CONSTIPATION; Start 08/22/18 at 11:00 Ciprofloxacin (Cipro) 500 mg BID@06,18 NGT ; Start 08/23/18 at 06:36 Magnesium Hydroxide (Milk Of Mag) 30 ml BID PO ; Start 08/23/18 at 09:00; Stop 08/25/18 at 07:00 Morphine Sulfate (morphine) 1 mg Q6H PRN IV SEVERE PAIN LEVEL 7-10; Start 08/23/18 at 07:00 DARRYL SOOD MD August 23, 2018 08:10
[2018-08-23] MEDS: HYDROmorphONE 0.5 MG/0.5 ML SYG IV PRN ×3 (08:25→11:56)
[2018-08-23] MEDS: FAMOTIDINE 20 MG TAB PO SCH (08:36)
[2018-08-23] MEDS: GABAPENTIN 100 MG CAP PO SCH ×2 (08:37→21:22)
[2018-08-23] MEDS: CLOPIDOGREL 75 MG TAB NGT SCH (08:37)
[2018-08-23] MEDS: FUROSEMIDE 40 MG TAB PO SCH (08:38)
[2018-08-23] MEDS: APIXABAN 5 MG TABLET PO SCH ×2 (08:38→21:23)
[2018-08-23] MEDS: AMLODIPINE 5 MG TAB PO SCH (08:39)
[2018-08-23] MEDS: POLYETHYLENE GLYCOL 17 GM PACKET PO SCH ×3 (08:46→21:24)
[2018-08-23] MEDS: DOCUSATE SODIUM 250 MG CAP PO SCH ×2 (08:46→21:22)
[2018-08-23] MEDS: ASCORBIC ACID 500 MG TAB NGT SCH ×3 (08:46→21:22)
[2018-08-23] MEDS: CIPROFLOXACIN 500 MG TAB NGT SCH ×2 (08:46→17:58)
[2018-08-23] MEDS: MAGNESIUM HYDROXIDE 30ML CUP PO SCH ×2 (08:46→21:23)
--- NOTE | 2018-08-23 11:38 | PN ---
Date/Time of Note Date/Time of Note DATE: 08/23/18 TIME: 11:37 Subjective Comfortable Objective Vital Signs Date Temp Pulse Resp B/P (MAP) Pulse Ox O2 O2 Flow FiO2 Time Delivery Rate 08/23/18 67 20 98 Nasal 2.0 08:48 Cannula 08/23/18 98.3 135/65 08:00 (88) Intake and Output 08/22/18 08/22/18 08/23/18 1515:00 23:00 07:00 IntakeIntake Total 500 ml 660 ml OutputOutput Total 150 ml 540 ml BalanceBalance 350 ml 120 ml Exam [id number] mod assist transfer Results/Medications Result Diagram: 08/22/18 0708 08/22/18 0708 Results 24 hrs Laboratory Tests Test 08/22/18 17:17 08/22/18 21:30 08/23/18 01:29 08/23/18 07:51 Bedside Glucose 180 200 172 184 Medications Current Medications Hydromorphone HCl (Dilaudid) 0.2 mg Q15M PRN IV PAIN LEVEL 1-5; Start 08/21/18 at 21:08 Hydromorphone HCl (Dilaudid) 0.4 mg Q15M PRN IV PAIN LEVEL 6-10 Last ad ministered on 08/23/18at 08:34; Admin Dose 0.4 MG; Start 08/21/18 at 21:08 Ondansetron HCl (Zofran Inj) 4 mg Q6H PRN IV NAUSEA AND/OR VOMITING; Start 08/21/18 at 21:08 Albumin Human 250 ml @ 500 mls/hr PRN PRN IV CVP< 8, OR SBP<90; Start 08/21/18 at 21:08 Clopidogrel Bisulfate (plaVIX) 75 mg DAILY NGT Last administered on 08/23/18at 08:37; Admin Dose 75 MG; Start 08/21/18 at 21:08 Levalbuterol (Xopenex Neb) 1.25 mg Q6H RESP THERAPY HHN Last administered on 08/23/18 08:38; Admin Dose 1.25 MG; Start 08/21/18 at 21:08 Ipratropium [place] (Atrovent 0.02% (Neb)) 0.5 mg Q6H RESP THERAPY HHN Last administered on 5/4/19at 08:38; Admin Dose 0.5 MG; Start 08/21/18 at 21:08 Diagnostic Test (Pha) (Accu-Chek) 1 ea 02 XX Last administered on 08/23/18at 02:00; Admin Dose 1 EA; Start 08/21/18 at 21:08 Miscellaneous Information 1 ea NOTE XX ; Start 08/21/18 at 21:08 Glucose (Glutose) 15 gm Q15M PRN PO DECREASED GLUCOSE; Start 08/21/18 at 21:08 Glucose (Glutose) 22.5 gm Q15M PRN PO DECREASED GLUCOSE; Start 08/21/18 at 21:08 Dextrose (D50w Syringe) 25 ml Q15M PRN IV DECREASED GLUCOSE; Start 08/21/18 at 21:08 Dextrose (D50w Syringe) 50 ml Q15M PRN IV DECREASED GLUCOSE; Start 08/21/18 at 21:08 Glucagon (Glucagen) 1 mg Q15M PRN IM DECREASED GLUCOSE; Start 08/21/18 at 21:08 Glucose (Glutose) 15 gm Q15M PRN BUCCAL DECREASED GLUCOSE; Start 08/21/18 at 21:08 Furosemide (Lasix) 40 mg DAILY PO Last administered on 08/23/18at 08:38; Admin Dose 40 MG; Start 08/21/18 at 21:08 Insulin Glargine (Lantus) 28 units 2300 SC Last administered on 08/23/18 01:30; Admin Dose 28 UNITS; Start 08/21/18 at 21:08 Famotidine (Pepcid) 20 mg DAILY PO Last administered on 08/23/18 08:36; Admin Dose 20 MG; Start 08/21/18 at 21:08 Insulin Aspart (Novolog Insulin Pen) 10 unit WITH MEALS SC Last administered on 08/23/18 07:55; Admin Dose 10 UNIT; Start 08/21/18 at 21:08 Insulin Aspart (Novolog Insulin Pen) NOVOLOG *MODERATE* ALGORITHM WITH MEALS BEDTIME SC Last administered on 08/23/18 07:56; Admin Dose 4 UNIT; Start at 21:08 Oxycodone/ Acetaminophen (Endocet (10/ 325)) 1 tab Q4H PRN PO MODERATE PAIN LEVEL 4-6 Last administered on 08/22/18 21:31; Admin Dose 1 TAB; Start 08/21/18 at 21:08 Hydralazine HCl (Apresoline) 10 mg Q4H PRN IV SBP >150; Start 08/21/18 at 21:30 Acetaminophen (Tylenol Tab) 650 mg Q3H PRN PO ELEVATED TEMPERATURE; Start 08/21/18 at 22:00 Apixaban (Eliquis) 5 mg BID PO Last administered on 08/23/18 08:38; Admin Dose 5 MG; Start 08/21/18 at 21:49 Ascorbic Acid (Vitamin C) 500 mg TID NGT Last administered on 08/23/18 08:46; Admin Dose 500 MG; Start 08/21/18 at 21:49 Atorvastatin Calcium (Lipitor) 40 mg HS PO Last administered on 08/22/18 21:31; Admin Dose 40 MG; Start 08/21/18 at 21:51 Carvedilol (Coreg) 12.5 mg BID PO Last administered on 08/23/18 08:37; Admin Dose 12.5 MG; Start 08/21/18 at 21:51 Docusate Sodium (Colace) 250 mg BID PO Last administered on 08/23/18 08:46; Admin Dose 250 MG; Start 08/21/18 at 21:51 Polyethylene Glycol (Miralax) 17 gm TID PO Last administered on 08/23/18 08:46; Admin Dose 17 GM; Start 08/21/18 at 21:53 Amlodipine Besylate (Norvasc) 5 mg DAILY PO Last administered on 08/23/18 08:39; Admin Dose 5 MG; Start 08/22/18 at 09:00 Magnesium Hydroxide (Milk Of Mag) 30 ml BID PRN PO CONSTIPATION Last administered on 08/22/18 17:19; Admin Dose 30 ML; Start 08/22/18 at 11:00 Gabapentin (Neurontin) 100 mg BID PO Last administered on 08/23/18 08:37; Admin Dose 100 MG; Start 08/22/18 at 11:00 Lactulose (Enulose) 20 gm DAILY PRN PO CONSTIPATION Last administered on 08/22/18 12:44; Admin Dose 20 GM; Start 08/22/18 at 11:00 Bisacodyl (Dulcolax Supp) 10 mg DAILY PRN [place] CONSTIPATION; Start 08/22/18 at 11:00 Ciprofloxacin (Cipro) 500 mg BID@06,18 NGT Last administered on 08/23/18at 08:46; Admin Dose 500 MG; Start 08/23/18 at 06:36 Magnesium Hydroxide (Milk Of Mag) 30 ml BID PO Last administered on 08/23/18at 08:46; Admin Dose 30 ML; Start 08/23/18 at 09:00; Stop 08/25/18 at 07:00 Morphine Sulfate (morphine) 1 mg Q6H PRN IV SEVERE PAIN LEVEL 7-10; Start 08/23/18 at 07:00 Assessment/Plan Additional Assessment/Plan rehab- Critical illness myopathy; Lumbar radiculopathy with right lower extremity symptoms. Continue activities as tolerated Coronary artery disease status post 5-vessel CABG. Status post acute respiratory failure. Acute on chronic kidney disease. Oropharyngeal dysphagia on mechanical soft diet. Chronic obstructive pulmonary disease. Diabetes mellitus type 2. Hypertension. Hyperlipidemia. Osteoarthritis affecting multiple joints, including bilateral knees. Diabetic retinopathy. Anemia of chronic disease. Benign prostatic hypertrophy. YARIEL MARIE MD August 23, 2018 11:38
[2018-08-23 14:00] VITALS: BP 125/60; PULSE 70; RESP 18
[2018-08-23] MEDS ORDERED: HYDROmorphONE 1 MG/ML SYG IV ONE (14:30)
[2018-08-23 15:40] VITALS: BP 116/57; PULSE 59; RESP 88
[2018-08-23] MEDS: HYDROmorphONE 1 MG/ML SYG IV PRN (19:37)
[2018-08-23 20:09] VITALS: BP 125/57; PULSE 67; RESP 20
[2018-08-23] MEDS: ATORVASTATIN 40 MG TAB PO SCH (21:22)
[2018-08-24] MEDS: IPRATROPIUM (NEB) 0.5 MG/2.5 ML AMP HHN SCH ×4 (01:15→19:49)
[2018-08-24] MEDS: LEVALBUTEROL (NEB) 1.25 MG/0.5 ML AMP HHN SCH ×4 (01:15→19:49)
[2018-08-24] MEDS: ACCU-CHEK XX SCH (02:00)
[2018-08-24] MEDS: HYDROmorphONE 1 MG/ML SYG IV PRN ×5 (02:46→19:33)
[2018-08-24 02:59] VITALS: BP 123/58; PULSE 62; RESP 19
[2018-08-24] MEDS: CIPROFLOXACIN 500 MG TAB NGT SCH ×2 (06:11→18:44)
[2018-08-24 07:00] VITALS: BP_SYST 128; BP_SYST 160; BP_DIAS 63; BP_DIAS 84; PULSE 59; PULSE 92; RESP 18
[2018-08-24] MEDS: INSULIN ASPART [NOVOLOG] 3 ML PEN SC SCH ×7 (08:00→21:22)
[2018-08-24] MEDS: DOCUSATE SODIUM 250 MG CAP PO SCH ×2 (08:57→21:19)
[2018-08-24] MEDS: ASCORBIC ACID 500 MG TAB NGT SCH ×3 (08:57→21:19)
[2018-08-24] MEDS: FUROSEMIDE 40 MG TAB PO SCH (08:58)
[2018-08-24] MEDS: CLOPIDOGREL 75 MG TAB NGT SCH (08:59)
[2018-08-24] MEDS: APIXABAN 5 MG TABLET PO SCH ×2 (08:59→21:19)
[2018-08-24] MEDS: FAMOTIDINE 20 MG TAB PO SCH (08:59)
[2018-08-24] MEDS: AMLODIPINE 5 MG TAB PO SCH (09:06)
[2018-08-24] MEDS: MAGNESIUM HYDROXIDE 30ML CUP PO SCH ×2 (09:07→21:18)
[2018-08-24] MEDS: GABAPENTIN 100 MG CAP PO SCH ×2 (09:07→21:19)
[2018-08-24] MEDS: POLYETHYLENE GLYCOL 17 GM PACKET PO SCH ×3 (09:07→21:20)
--- NOTE | 2018-08-24 09:18 | PN ---
Date/Time of Note Date/Time of Note DATE: 08/24/18 TIME: 09:16 Assessment/Plan VTE Prophylaxis Risk score (from Ns)>0 risk: 17 SCD applied (from Ns): No SCD contraindicated: other (on.) Pharmacological prophylaxis: apixaban Lines/Catheters IV Catheter Type (from [facility], [place]): [place] [employer] line still needed: No Urinary Cath still in place: No Reason Cath still needed: urinary retention Assessment/Plan Assessment/Plan 1. Ischemic heart disease angina three-vessel coronary a. disease.s/p CABG x5 08/13/18: WINN to LAD, SVG to ramus sequence to obtuse marginal artery, SVG to PDA, SVG to left ventricular extension branch. Difficult case per Dr. Howell with poor targets.Vein harvesting and epiaortic scanning of the ascending aorta.CAD: s/p multiple prior PCIs. Cath 08/11/18 with multivessel disease. Now with elevated level of the troponin the second 1 is 1.1. We will get q. 6 hours x 2. The patient denies having the chest pain. 2. Hypertension with congestive heart failure diastolic- improved. 3. Diabetes mellitus type 2 blood sugar better controlled. Continue titration. 4. History of cholecystitis and pancreatitis 5. Acute on chronic kidney disease with baseline creatinine being 1.6 up to 3.5 came down to 2.05 yesterday and 1.95 today. Improved after hydration,now mildly dehydrated; 6. Dyslipidemia better controlled 7. History of nasal bleeding recurrent- stable. 8. Morbid obesity with snoring and apnea and daytime sleepiness 9. BPH with nocturia 10. Low back pain with radiculopathy 11. 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 Status post cataract ectomy 13. Diabetic nephropathy retinopathy and angiopathy and neuropathy. 14. Constipation- improved. 15. Grief reaction after the of her 16. Gastroesophageal reflux disease 17. Deep venous thrombosis of the left saphenous vein, 2-3 months ago;was on Eliquis 5 mg twice daily, stopped: since 08/11/2018. 18. Gastritis 19. COPD. Quit smoking 10years ago. 02sat now 95% with persistent cough. 20. History of nephrolithiasis. 21. Drop of hematocrit; s/p 2 units of prbc tx. stable. 22. Drop of albumone and total protein and mild elevation of lft's. 23.Myopathy 24.Lethargy 25.Acute on chronic kidney disease, improving 25.Unstable gate Result Diagram: 08/24/18 0550 08/24/18 0550 Results 24hrs Laboratory Tests Test 08/23/18 12:08 08/23/18 17:36 08/23/18 21:27 08/23/18 22:44 Bedside Glucose 176 90 170 171 Test 08/24/18 05:50 08/24/18 07:54 White Blood Count 7.4 Red Blood Count 3.02 L Hemoglobin 8.6 L Hematocrit 27.2 L Mean Corpuscular Volume 90.1 Mean Corpuscular 28.5 L Hemoglobin Mean Corpuscular 31.6 L Hemoglobin Concent Red Cell Distribution 14.2 Width Platelet Count 237 # Mean Platelet Volume 11.8 H Immature Granulocytes % 0.700 H Neutrophils % 64.5 Lymphocytes % 19.7 Monocytes % 10.7 Eosinophils % 3.9 Basophils % 0.5 Nucleated Red Blood 0.0 Cells % Immature Granulocytes # 0.050 H Neutrophils # 4.8 Lymphocytes # 1.5 Monocytes # 0.8 Eosinophils # 0.3 Basophils # 0.0 Nucleated Red Blood 0.0 Cells # Sodium Level 136 Potassium Level 3.8 Chloride Level 97 Carbon Dioxide Level 29 Anion Gap 10 Blood Urea Nitrogen 48 H Creatinine 1.82 H Est Glomerular Filtrat Rate mL/min Glucose Level 136 Calcium Level 8.5 Total Bilirubin 0.5 Direct Bilirubin 0.00 Indirect Bilirubin 0.5 Aspartate Amino 27 Transf (AST/SGOT) Alanine 28 Aminotransferase (ALT/SG PT) Alkaline Phosphatase 57 Total Protein 6.4 Albumin 3.3 Globulin 3.10 Albumin/Globulin Ratio 1.06 Bedside Glucose 143 Subjective 24 Hr Interval Summary Free Text/Dictation I had severe pain yesterday. My body is stiff. I can't relax. I can't move due to of the pain. Sleep improve after iv morphine. DYSURIA PERSISTS. Severe constipation. I did not have a bowel movement for last 2 days. Elevated troponin level was noticed. The second level is lower than the first 1. Will continue to monitor tests. Constitutional: improved, poor po, requiring O2; No no complaints, No chills, No diaphoresis, No disoriented, No febrile, No requiring IVF, No other Eyes: No no complaints, No pain, No discharge, No redness, No visual change, No other ENT: No no complaints, No bleeding, No pain, No congestion, No discharge, No dysphagia, No sore throat, No other Respiratory: cough, pleuritic pain, shortness of breath; No no complaints, No pain, No sputum, No wheezing, No other Cardiovascular: No no complaints, No chest pain, No edema, No lightheadedness, No orthopenea, No palpitations, No paroxysmal nocturnal dyspnea, No other Gastrointestinal: constipation, decreased appetite, nausea; No no complaints, No pain, No blood, No diarrhea, No flatus, No passing stool, No vomiting, No other Genitourinary: No no complaints, No bleeding, No dysuria, No discharge, No flank pain, No hematuria, No other Musculoskeletal: back pain, bone/joint pain, neck pain; No no complaints, No restricted range of motion, No swelling, No other Skin: rash; No no complaints, No bruising, No erythema, No laceration, No pruritis, No skin lesions, No other Neurologic: dizziness, headache, other (Becomes dizzy when getting up.); No no complaints, No confusion, No focal-weakness, No syncope, No seizure Exam/Review of Systems Exam Vitals Vital Signs Date Temp Pulse Resp B/P (MAP) Pulse Ox O2 O2 Flow FiO2 Time Delivery Rate 08/24/18 66 20 98 Nasal 2.0 09:02 Cannula 08/24/18 98.2 123/58 02:59 (79) Intake and Output 08/23/18 08/23/18 08/24/18 1515:00 23:00 07:00 IntakeIntake Total 540 ml OutputOutput Total 100 ml 900 ml 800 ml BalanceBalance -100 ml -360 ml -800 ml Constitutional: alert, oriented, well developed, distress, frail, obese; No non-verbal, No other Psych: anxiety, depression; No no complaints, No nl mood/affect, No confusion, No suicidal, No other Head: normocephalic, atraumatic; No lacerations, No hematomas, No other Eyes: EOMI, nl lids, nl sclera (Pale conjunctiva.), PERRL; No nl conjunctiva, No icteric, No fundi, disc, No other ENMT: nl nasal mucosa & septum; No nl external ears & nose, No nl lips & teeth, No mucosa pink and moist, No intubated, No tympanic membranes, No other Neck: jvd, bruits, thyromegaly; No supple, No non-tender, No masses, No nuchal rigidity, No other Respiratory: normal air movement, diminished breath sounds; No clear to auscultation, No congested cough, No crackles/rales, No intercostal retraction, No labored breathing, No respirations, No tactile fremitus, No wheezing, No other Cardiovascular: regular rate and rhythm, edema, jugular venous distention (JVD), systolic murmur; No nl pulses, No bruits, No diastolic murmur, No gallop, No irregular rhythm, No murmurs/extra sounds, No rub, No S3, No S4, No other Gastrointestinal: soft, bowel sounds, distended, hepatomegaly; No nl liver, spleen, No non-tender, No ascites, No firm, No mass, No rebound or guarding, No splenomegaly, No surgical scars, No tender, No other Genitourinary - Male: nl penis, nl scrotum; No CVA tenderness, No discharge, No other Musculoskeletal: nl extremities to inspection (Very painful right leg anterior medially in the side of the harvesting of the vein. Possible mild erythema in the site of incision along with edema in the region the touch is very painful. No fluid accumulation.), nl gait and stance (Gait), joint tenderness, muscle tone (Decreased.), muscle weakness; No range of motion, No spine non-tender, No swelling, No other Extremities: calf tenderness, cyanosis, edema; No normal pulses, No clubbing, No pitting pedal edema, No palpable cord, No tenderness, No other 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: DIRECTOR DIVERSITY II-XII intact, numbness; No nl mental status, No nl speech, No nl strength, No confused, No DTR's symmetric, No focal weakness, No lethargic, No reflexes, No unresponsive, No other Skin: nl turgor; No rash or lesions, No diaphoresis, No ecchymosis, No laceration, No puncture, No other Lymph: nl lymph nodes; No enlarged, No nontender, No other Results Results 24hrs Laboratory Tests Test 08/23/18 12:08 08/23/18 17:36 08/23/18 21:27 08/23/18 22:44 Bedside Glucose 176 90 170 171 Test 08/24/18 05:50 08/24/18 07:54 White Blood Count 7.4 Red Blood Count 3.02 L Hemoglobin 8.6 L Hematocrit 27.2 L Mean Corpuscular Volume 90.1 Mean Corpuscular 28.5 L Hemoglobin Mean Corpuscular 31.6 L Hemoglobin Concent Red Cell Distribution 14.2 Width Platelet Count 237 # Mean Platelet Volume 11.8 H Immature Granulocytes % 0.700 H Neutrophils % 64.5 Lymphocytes % 19.7 Monocytes % 10.7 Eosinophils % 3.9 Basophils % 0.5 Nucleated Red Blood 0.0 Cells % Immature Granulocytes # 0.050 H Neutrophils # 4.8 Lymphocytes # 1.5 Monocytes # 0.8 Eosinophils # 0.3 Basophils # 0.0 Nucleated Red Blood 0.0 Cells # Sodium Level 136 Potassium Level 3.8 Chloride Level 97 Carbon Dioxide Level 29 Anion Gap 10 Blood Urea Nitrogen 48 H Creatinine 1.82 H Est Glomerular Filtrat Rate mL/min Glucose Level 136 Calcium Level 8.5 Total Bilirubin 0.5 Direct Bilirubin 0.00 Indirect Bilirubin 0.5 Aspartate Amino 27 Transf (AST/SGOT) Alanine 28 Aminotransferase (ALT/SG PT) Alkaline Phosphatase 57 Total Protein 6.4 Albumin 3.3 Globulin 3.10 Albumin/Globulin Ratio 1.06 Bedside Glucose 143 Medications Medication Current Medications Ondansetron HCl (Zofran Inj) 4 mg Q6H PRN IV NAUSEA AND/OR VOMITING; Start 08/21/18 at 21:08 Albumin Human 250 ml @ 500 mls/hr PRN PRN IV CVP< 8, OR SBP<90; Start 08/21/18 at 21:08 Clopidogrel Bisulfate (plaVIX) 75 mg DAILY NGT Last administered on 08/24/18at 08:59; Admin Dose 75 MG; Start 08/21/18 at 21:08 Levalbuterol (Xopenex Neb) 1.25 mg Q6H RESP THERAPY HHN Last administered on 08/24/18at 08:56; Admin Dose 1.25 MG; Start 08/21/18 at 21:08 Ipratropium [place] (Atrovent 0.02% (Neb)) 0.5 mg Q6H RESP THERAPY HHN Last administered on 08/24/18at 08:52; Admin Dose 0.5 MG; Start 08/21/18 at 21:08 Diagnostic Test (Pha) (Accu-Chek) 1 ea 02 XX Last administered on 08/23/18at 02:00; Admin Dose 1 EA; Start 08/21/18 at 21:08 Miscellaneous Information 1 ea NOTE XX ; Start 08/21/18 at 21:08 Glucose (Glutose) 15 gm Q15M PRN PO DECREASED GLUCOSE; Start 08/21/18 at 21:08 Glucose (Glutose) 22.5 gm Q15M PRN PO DECREASED GLUCOSE; Start 08/21/18 at 21:08 Dextrose (D50w Syringe) 25 ml Q15M PRN IV DECREASED GLUCOSE; Start 08/21/18 at 21:08 Dextrose (D50w Syringe) 50 ml Q15M PRN IV DECREASED GLUCOSE; Start 08/21/18 at 21:08 Glucagon (Glucagen) 1 mg Q15M PRN IM DECREASED GLUCOSE; Start 08/21/18 at 21:08 Glucose (Glutose) 15 gm Q15M PRN BUCCAL DECREASED GLUCOSE; Start 08/21/18 at 21:08 Furosemide (Lasix) 40 mg DAILY PO Last administered on 08/24/18 08:58; Admin Dose 40 MG; Start 08/21/18 at 21:08 Insulin Glargine (Lantus) 28 units 2300 SC Last administered on 08/23/18 22:46; Admin Dose 28 UNITS; Start 08/21/18 at 21:08 Famotidine (Pepcid) 20 mg DAILY PO Last administered on 08/24/18 08:59; Admin Dose 20 MG; Start 08/21/18 at 21:08 Insulin Aspart (Novolog Insulin Pen) 10 unit WITH MEALS SC Last administered on 08/24/18 08:00; Admin Dose 10 UNIT; Start 08/21/18 at 21:08 Insulin Aspart (Novolog Insulin Pen) NOVOLOG *MODERATE* ALGORITHM WITH MEALS BEDTIME SC Last administered on 08/24/18 08:03; Admin Dose 2 UNIT; Start 08/21/18 at 21:08 Oxycodone/ Acetaminophen (Endocet (10/ 325)) 1 tab Q4H PRN PO MODERATE PAIN LEVEL 4-6 Last administered on 08/22/18 21:31; Admin Dose 1 TAB; Start 08/21/18 at 21:08 Hydralazine HCl (Apresoline) 10 mg Q4H PRN IV SBP >150; Start 08/21/18 at 21:30 Acetaminophen (Tylenol Tab) 650 mg Q3H PRN PO ELEVATED TEMPERATURE; Start 08/21/18 at 22:00 Apixaban (Eliquis) 5 mg BID PO Last administered on 08/24/18 08:59; Admin Dose 5 MG; Start 08/21/18 at 21:49 Ascorbic Acid (Vitamin C) 500 mg TID NGT Last administered on 08/24/18 08:57; Admin Dose 500 MG; Start 08/21/18 at 21:49 Atorvastatin Calcium (Lipitor) 40 mg HS PO Last administered on 08/23/18 21:22; Admin Dose 40 MG; Start 08/21/18 at 21:51 Carvedilol (Coreg) 12.5 mg BID PO Last administered on 08/24/18 08:59; Admin Dose 12.5 MG; Start 08/21/18 at 21:51 Docusate Sodium (Colace) 250 mg BID PO Last administered on 08/24/18 08:57; Admin Dose 250 MG; Start 08/21/18 at 21:51 Polyethylene Glycol (Miralax) 17 gm TID PO Last administered on 08/24/18 09:07; Admin Dose 17 GM; Start 08/21/18 at 21:53 Amlodipine Besylate (Norvasc) 5 mg DAILY PO Last administered on 08/24/18 09:06; Admin Dose 5 MG; Start 08/22/18 at 09:00 Magnesium Hydroxide (Milk Of Mag) 30 ml BID PRN PO CONSTIPATION Last administered on 08/22/18 17:19; Admin Dose 30 ML; Start 08/22/18 at 11:00 Gabapentin (Neurontin) 100 mg BID PO Last administered on 08/24/18 09:07; Admin Dose 100 MG; Start 08/22/18 at 11:00 Lactulose (Enulose) 20 gm DAILY PRN PO CONSTIPATION Last administered on 08/22/18 12:44; Admin Dose 20 GM; Start 08/22/18 at 11:00 Bisacodyl (Dulcolax Supp) 10 mg DAILY PRN [place] CONSTIPATION; Start 08/22/18 at 11:00 Ciprofloxacin (Cipro) 500 mg BID@06,18 NGT Last administered on 08/24/18at 06:11; Admin Dose 500 MG; Start 08/23/18 at 06:36 Magnesium Hydroxide (Milk Of Mag) 30 ml BID PO Last administered on 08/24/18at 09:07; Admin Dose 30 ML; Start 08/23/18 at 09:00; Stop 08/25/18 at 07:00 Morphine Sulfate (morphine) 1 mg Q6H PRN IV SEVERE PAIN LEVEL 7-10; Start 08/23/18 at 07:00 Hydromorphone HCl (Dilaudid) 1 mg Q4H PRN IV SEVERE PAIN LEVEL 7-10 Last administered on 08/24/18at 07:55; Admin Dose 1 MG; Start 08/23/18 at 14:30 NERIS BROTHERS MD August 24, 2018 09:18
[2018-08-24] MEDS ORDERED: ASPIRIN (EC) 81 MG TAB PO SCH (11:00)
[2018-08-24] MEDS ORDERED: NITROGLYCERIN (SL) 0.4 MG TAB SL PRN (11:30)
--- NOTE | 2018-08-24 12:21 | CONS ---
Assessment/Plan Assessment/Plan Assessment/Plan (Daily) Assessment/Plan Assessment/Plan Hospital Course (Demo Recall) Acute on chronic diastolic CHF: ~euvolemic Acute on chronic renal failure: Cr baseline 1.6. Worse after CABG.Now improving to 1.9 Cardiogenic shock: Transient post op, now off inotropic support and CI 2.6 Acute respiratory failure: s/p extubation 08/16 Anemia: from operative blood loss. Required one unit. No active bleeding s/p CABG x5 08/13/18: WINN to LAD, SVG to ramus sequence to obtuse marginal artery, SVG to PDA, SVG to left ventricular extension branch. Difficult case per Dr. Howell with poor targets. CAD: s/p multiple prior PCIs. Cath 08/11/18 with multivessel disease. s/p CABG above Recent left femoral DVT: on Eliquis as outpt. DM HT HL -?home soon. Ok from my perspective -lasix 40mg PO daily -Eliquis 5mg BID -continue plavix -coreg 12.5mg BID -amlodipine 5mg -lipitor 40mg ELEVATED TROP NO SYMPTOMS NO CHF NO EVIDENCE OF A CUTE GRAFT CLOSURE CONTINUE PT Consultation Date/Type/Reason Admit Date/Time August 21, 2018 at 18:31 Initial Consult Date Type of Consult Cardiology Reason for Consultation [facility] Date/Time of Note DATE: 08/24/18 TIME: 12:15 24 HR Interval Summary Free Text/Dictation Assessment/Plan Assessment/Plan Hospital Course (Demo Recall) Acute on chronic diastolic CHF: ~euvolemic Acute on chronic renal failure: Cr baseline 1.6. Worse after CABG.Now improving to 1.9 Cardiogenic shock: Transient post op, now off inotropic support and CI 2.6 Acute respiratory failure: s/p extubation 08/16 Anemia: from operative blood loss. Required one unit. No active bleeding s/p CABG x5 08/13/18: WINN to LAD, SVG to ramus sequence to obtuse marginal artery, SVG to PDA, SVG to left ventricular extension branch. Difficult case per Dr. Howell with poor targets. CAD: s/p multiple prior PCIs. Cath 08/11/18 with multivessel disease. s/p CABG above Recent left femoral DVT: on Eliquis as outpt. DM HT HL -?home soon. Ok from my perspective -lasix 40mg PO daily -Eliquis 5mg BID -continue plavix -coreg 12.5mg BID -amlodipine 5mg -lipitor 40mg Exam/Review of Systems Vital Signs Vitals Vital Signs Date Temp Pulse Resp B/P (MAP) Pulse Ox O2 O2 Flow FiO2 Time Delivery Rate 08/24/18 66 20 98 Nasal 2.0 09:02 Cannula 08/24/18 98.7 128/63 07:00 (84) Intake and Output 08/23/18 08/23/18 08/24/18 1515:00 23:00 07:00 IntakeIntake Total 540 ml OutputOutput Total 100 ml 900 ml 800 ml BalanceBalance -100 ml -360 ml -800 ml Exam Exam Constitutional: alert, oriented Psych: no complaints, nl mood/affect Head: normocephalic, atraumatic Neck: No jvd Respiratory: diminished breath sounds; No clear to auscultation Cardiovascular: regular rate and rhythm, edema (trace right); No systolic murmur Gastrointestinal: soft, non-tender; No distended 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: nl mental status, nl speech Labs Result Diagram: 08/24/18 0550 08/24/18 0550 Results 24hrs Laboratory Tests Test 08/23/18 17:36 08/23/18 21:27 08/23/18 22:44 08/24/18 05:47 Bedside Glucose 90 170 171 Magnesium Level 2.2 Iron Level 27 L Total Iron Binding 235 L Capacity Percent Iron Saturation 11 L Creatine Kinase 54 Creatine Kinase Index 2.6 Creatinine Kinase MB 1.42 (Mass) Troponin I 1.340 *H Test 08/24/18 05:50 08/24/18 07:54 08/24/18 11:56 White Blood Count 7.4 Red Blood Count 3.02 L Hemoglobin 8.6 L Hematocrit 27.2 L Mean Corpuscular Volume 90.1 Mean Corpuscular 28.5 L Hemoglobin Mean Corpuscular 31.6 L Hemoglobin Concent Red Cell Distribution 14.2 Width Platelet Count 237 # Mean Platelet Volume 11.8 H Immature Granulocytes % 0.700 H Neutrophils % 64.5 Lymphocytes % 19.7 Monocytes % 10.7 Eosinophils % 3.9 Basophils % 0.5 Nucleated Red Blood 0.0 Cells % Immature Granulocytes # 0.050 H Neutrophils # 4.8 Lymphocytes # 1.5 Monocytes # 0.8 Eosinophils # 0.3 Basophils # 0.0 Nucleated Red Blood 0.0 Cells # Sodium Level 136 Potassium Level 3.8 Chloride Level 97 Carbon Dioxide Level 29 Anion Gap 10 Blood Urea Nitrogen 48 H Creatinine 1.82 H Est Glomerular Filtrat Rate mL/min Glucose Level 136 Calcium Level 8.5 Total Bilirubin 0.5 Direct Bilirubin 0.00 Indirect Bilirubin 0.5 Aspartate Amino 27 Transf (AST/SGOT) Alanine 28 Aminotransferase (ALT/SG PT) Alkaline Phosphatase 57 Total Protein 6.4 Albumin 3.3 Globulin 3.10 Albumin/Globulin Ratio 1.06 Bedside Glucose 143 232 H Medications Medications Current Medications Ondansetron HCl (Zofran Inj) 4 mg Q6H PRN IV NAUSEA AND/OR VOMITING; Start 08/21/18 at 21:08 Albumin Human 250 ml @ 500 mls/hr PRN PRN IV CVP< 8, OR SBP<90; Start 08/21/18 at 21:08 Clopidogrel Bisulfate (plaVIX) 75 mg DAILY NGT Last administered on 08/24/18at 08:59; Admin Dose 75 MG; Start 08/21/18 at 21:08 Levalbuterol (Xopenex Neb) 1.25 mg Q6H RESP THERAPY HHN Last administered on 08/24/18at 08:56; Admin Dose 1.25 MG; Start 08/21/18 at 21:08 Ipratropium [place] (Atrovent 0.02% (Neb)) 0.5 mg Q6H RESP THERAPY HHN Last administered on 08/24/18at 08:52; Admin Dose 0.5 MG; Start 08/21/18 at 21:08 Diagnostic Test (Pha) (Accu-Chek) 1 ea 02 XX Last administered on 08/23/18at 02:00; Admin Dose 1 EA; Start 08/21/18 at 21:08 Miscellaneous Information 1 ea NOTE XX ; Start 08/21/18 at 21:08 Glucose (Glutose) 15 gm Q15M PRN PO DECREASED GLUCOSE; Start 08/21/18 at 21:08 Glucose (Glutose) 22.5 gm Q15M PRN PO DECREASED GLUCOSE; Start 08/21/18 at 21:08 Dextrose (D50w Syringe) 25 ml Q15M PRN IV DECREASED GLUCOSE; Start 08/21/18 at 21:08 Dextrose (D50w Syringe) 50 ml Q15M PRN IV DECREASED GLUCOSE; Start 08/21/18 at 21:08 Glucagon (Glucagen) 1 mg Q15M PRN IM DECREASED GLUCOSE; Start 08/21/18 at 21:08 Glucose (Glutose) 15 gm Q15M PRN BUCCAL DECREASED GLUCOSE; Start 08/21/18 at 21:08 Furosemide (Lasix) 40 mg DAILY PO Last administered on 08/24/18 08:58; Admin Dose 40 MG; Start 08/21/18 at 21:08 Insulin Glargine (Lantus) 28 units 2300 SC Last administered on 08/23/18 22:46; Admin Dose 28 UNITS; Start 08/21/18 at 21:08 Famotidine (Pepcid) 20 mg DAILY PO Last administered on 08/24/18 08:59; Admin Dose 20 MG; Start 08/21/18 at 21:08 Insulin Aspart (Novolog Insulin Pen) 10 unit WITH MEALS SC Last administered on 08/24/18 12:04; Admin Dose 10 UNIT; Start 08/21/18 at 21:08 Insulin Aspart (Novolog Insulin Pen) NOVOLOG *MODERATE* ALGORITHM WITH MEALS BEDTIME SC Last administered on 08/24/18 12:03; Admin Dose 6 UNIT; Start 08/21/18 at 21:08 Oxycodone/ Acetaminophen (Endocet (10/ 325)) 1 tab Q4H PRN PO MODERATE PAIN LEVEL 4-6 Last administered on 08/22/18 21:31; Admin Dose 1 TAB; Start 08/21/18 at 21:08 Hydralazine HCl (Apresoline) 10 mg Q4H PRN IV SBP >150; Start 08/21/18 at 21:30 Acetaminophen (Tylenol Tab) 650 mg Q3H PRN PO ELEVATED TEMPERATURE; Start 08/21/18 at 22:00 Apixaban (Eliquis) 5 mg BID PO Last administered on 08/24/18 08:59; Admin Dose 5 MG; Start 08/21/18 at 21:49 Ascorbic Acid (Vitamin C) 500 mg TID NGT Last administered on 08/24/18 12:10; Admin Dose 500 MG; Start 08/21/18 at 21:49 Atorvastatin Calcium (Lipitor) 40 mg HS PO Last administered on 08/23/18 21:22; Admin Dose 40 MG; Start 08/21/18 at 21:51 Carvedilol (Coreg) 12.5 mg BID PO Last administered on 08/24/18 08:59; Admin Dose 12.5 MG; Start 08/21/18 at 21:51 Docusate Sodium (Colace) 250 mg BID PO Last administered on 08/24/18 08:57; Ad min Dose 250 MG; Start 08/21/18 at 21:51 Polyethylene Glycol (Miralax) 17 gm TID PO Last administered on 08/24/18 09:07; Admin Dose 17 GM; Start 08/21/18 at 21:53 Amlodipine Besylate (Norvasc) 5 mg DAILY PO Last administered on 08/24/18 09:06; Admin Dose 5 MG; Start 08/22/18 at 09:00 Magnesium Hydroxide (Milk Of Mag) 30 ml BID PRN PO CONSTIPATION Last administered on 08/22/18 17:19; Admin Dose 30 ML; Start 08/22/18 at 11:00 Gabapentin (Neurontin) 100 mg BID PO Last administered on 08/24/18 09:07; Admin Dose 100 MG; Start 08/22/18 at 11:00 Lactulose (Enulose) 20 gm DAILY PRN PO CONSTIPATION Last administered on 08/22/18 12:44; Admin Dose 20 GM; Start 08/22/18 at 11:00 Bisacodyl (Dulcolax Supp) 10 mg DAILY PRN [place] CONSTIPATION; Start 08/22/18 at 11:00 Ciprofloxacin (Cipro) 500 mg BID@,18 NGT Last administered on 08/24/18 06:11; Admin Dose 500 MG; Start 08/23/18 at 06:36 Magnesium Hydroxide (Milk Of Mag) 30 ml BID PO Last administered on 08/24/18 09:07; Admin Dose 30 ML; Start 08/23/18 at 09:00; Stop 08/25/18 at 07:00 Morphine Sulfate (morphine) 1 mg Q6H PRN IV SEVERE PAIN LEVEL 7-10; Start 08/23/18 at 07:00 Hydromorphone HCl (Dilaudid) 1 mg Q4H PRN IV SEVERE PAIN LEVEL 7-10 Last admi nistered on 08/24/18 12:13; Admin Dose 1 MG; Start 08/23/18 at 14:30 Aspirin (Halfprin) 81 mg DAILY PO Last administered on 08/24/18at 12:10; Admin Dose 81 MG; Start 08/24/18 at 11:00 Nitroglycerin (Nitroglycerin (Sl Tab) 0.4 Mg) 1 tab Q5M PRN SL ANGINA; Start 08/24/18 at 11:30 Ferric Sodium Gluconate Complex 125 mg/Sodium Chloride 100 ml @ 100 mls/hr DAILY@1300 IVPB ; Start 08/24/18 at 13:00; Stop 08/26/18 at 13:59 KEITH SLADE MD August 24, 2018 12:21
[2018-08-24] MEDS: SOD FERRIC GLUC COMPLX 125 MG in SOD CHLORIDE 0.9% 100 ML IVPB SCH (13:55)
[2018-08-24 14:00] VITALS: BP 124/59; PULSE 63; RESP 18
--- NOTE | 2018-08-24 16:45 | CONS ---
Assessment/Plan Assessment/Plan Assessment/Plan (Daily) 1. acute kidney injury vs possible baseline CKD II due to ishcemic ATN + Hemodynamics 2. 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 H/o HTN 4. H/o HL 5. H/o DM II 6. H/o CAD with previous stent placement 7. Anemia of chronic disease with iron deficiency Plan: BUN/Cr bumped to 48/1.82 Bp stable - other electrolytes stable continue Lasix 40mg po daily amlodipine 5 mg po daily, Eliquis 5mg pO BID will follow up Patient is seen in collaboration with Dr Berenice Goff Consultation Date/Type/Reason Admit Date/Time August 21, 2018 at 18:31 Initial Consult Date Date/Time of Note DATE: 08/24/18 TIME: 16:44 Exam/Review of Systems Exam Vitals Vital Signs Date Temp Pulse Resp B/P (MAP) Pulse Ox O2 O2 Flow FiO2 Time Delivery Rate 08/24/18 2.0 15:58 08/24/18 98.0 63 18 124/59 97 Room Air 14:00 (80) Intake and Output 08/23/18 08/23/18 08/24/18 1515:00 23:00 07:00 IntakeIntake Total 540 ml OutputOutput Total 100 ml 900 ml 800 ml BalanceBalance -100 ml -360 ml -800 ml Constitutional: alert, well developed, obese Psych: nl mood/affect Head: atraumatic Eyes: nl lids, nl sclera ENMT: nl external ears & nose Neck: non-tender Cardiovascular: nl pulses, other (s1s2) Gastrointestinal: soft, non-tender Musculoskeletal: muscle weakness Extremities: normal pulses 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: other (alert/responsive) Skin: rash or lesions Results Result Diagram: 08/24/18 0550 08/24/18 0550 Results 24hrs Laboratory Tests Test 08/23/18 17:36 08/23/18 21:27 08/23/18 22:44 08/24/18 05:47 Bedside Glucose 90 170 171 Magnesium Level 2.2 Iron Level 27 L Total Iron Binding 235 L Capacity Percent Iron Saturation 11 L Creatine Kinase 54 Creatine Kinase Index 2.6 Creatinine Kinase MB 1.42 (Mass) Troponin I 1.340 *H Test 08/24/18 05:50 08/24/18 07:54 08/24/18 11:56 08/24/18 13:08 White Blood Count 7.4 Red Blood Count 3.02 L Hemoglobin 8.6 L Hematocrit 27.2 L Mean Corpuscular Volume 90.1 Mean Corpuscular 28.5 L Hemoglobin Mean Corpuscular 31.6 L Hemoglobin Concent Red Cell Distribution 14.2 Width Platelet Count 237 # Mean Platelet Volume 11.8 H Immature Granulocytes % 0.700 H Neutrophils % 64.5 Lymphocytes % 19.7 Monocytes % 10.7 Eosinophils % 3.9 Basophils % 0.5 Nucleated Red Blood 0.0 Cells % Immature Granulocytes # 0.050 H Neutrophils # 4.8 Lymphocytes # 1.5 Monocytes # 0.8 Eosinophils # 0.3 Basophils # 0.0 Nucleated Red Blood 0.0 Cells # Sodium Level 136 Potassium Level 3.8 Chloride Level 97 Carbon Dioxide Level 29 Anion Gap 10 Blood Urea Nitrogen 48 H Creatinine 1.82 H Est Glomerular Filtrat Rate mL/min Glucose Level 136 Calcium Level 8.5 Total Bilirubin 0.5 Direct Bilirubin 0.00 Indirect Bilirubin 0.5 Aspartate Amino 27 Transf (AST/SGOT) Alanine 28 Aminotransferase (ALT/SG PT) Alkaline Phosphatase 57 Total Protein 6.4 Albumin 3.3 Globulin 3.10 Albumin/Globulin Ratio 1.06 Bedside Glucose 143 232 H Troponin I 1.190 *H Medications Medication Current Medications Ondansetron HCl (Zofran Inj) 4 mg Q6H PRN IV NAUSEA AND/OR VOMITING; Start 08/21/18 at 21:08 Albumin Human 250 ml @ 500 mls/hr PRN PRN IV CVP< 8, OR SBP<90; Start 08/21/18 at 21:08 Clopidogrel Bisulfate (plaVIX) 75 mg DAILY NGT Last administered on 08/24/18at 08:59; Admin Dose 75 MG; Start 08/21/18 at 21:08 Levalbuterol (Xopenex Neb) 1.25 mg Q6H RESP THERAPY HHN Last administered on 08/24/18 12:58; Admin Dose 1.25 MG; Start 08/21/18 at 21:08 Ipratropium [place] (Atrovent 0.02% (Neb)) 0.5 mg Q6H RESP THERAPY HHN Last administered on 08/24/18 12:58; Admin Dose 0.5 MG; Start 08/21/18 at 21:08 Diagnostic Test (Pha) (Accu-Chek) 1 ea 02 XX Last administered on 08/23/18at 02:00; Admin Dose 1 EA; Start 08/21/18 at 21:08 Miscellaneous Information 1 ea NOTE XX ; Start 08/21/18 at 21:08 Glucose (Glutose) 15 gm Q15M PRN PO DECREASED GLUCOSE; Start 08/21/18 at 21:08 Glucose (Glutose) 22.5 gm Q15M PRN PO DECREASED GLUCOSE; Start 08/21/18 at 21:08 Dextrose (D50w Syringe) 25 ml Q15M PRN IV DECREASED GLUCOSE; Start 08/21/18 at 21:08 Dextrose (D50w Syringe) 50 ml Q15M PRN IV DECREASED GLUCOSE; Start 08/21/18 at 21:08 Glucagon (Glucagen) 1 mg Q15M PRN IM DECREASED GLUCOSE; Start 08/21/18 at 21:08 Glucose (Glutose) 15 gm Q15M PRN BUCCAL DECREASED GLUCOSE; Start 08/21/18 at 21:08 Furosemide (Lasix) 40 mg DAILY PO Last administered on 08/24/18at 08:58; Admin Dose 40 MG; Start 08/21/18 at 21:08 Insulin Glargine (Lantus) 28 units 2300 SC Last administered on 08/23/18at 22:46; Admin Dose 28 UNITS; Start 08/21/18 at 21:08 Famotidine (Pepcid) 20 mg DAILY PO Last administered on 08/24/18 08:59; Admin Dose 20 MG; Start 08/21/18 at 21:08 Insulin Aspart (Novolog Insulin Pen) 10 unit WITH MEALS SC Last administered on 08/24/18at 12:04; Admin Dose 10 UNIT; Start 08/21/18 at 21:08 Insulin Aspart (Novolog Insulin Pen) NOVOLOG *MODERATE* ALGORITHM WITH MEALS BEDTIME SC Last administered on 08/24/18 12:03; Admin Dose 6 UNIT; Start 08/21/18 at 21:08 Oxycodone/ Acetaminophen (Endocet (10/ 325)) 1 tab Q4H PRN PO MODERATE PAIN LEVEL 4-6 Last administered on 08/22/18at 21:31; Admin Dose 1 TAB; Start 08/21/18 a t 21:08 Hydralazine HCl (Apresoline) 10 mg Q4H PRN IV SBP >150; Start 08/21/18 at 21:30 Acetaminophen (Tylenol Tab) 650 mg Q3H PRN PO ELEVATED TEMPERATURE; Start 08/21/18 at 22:00 Apixaban (Eliquis) 5 mg BID PO Last administered on 08/24/18 08:59; Admin Dose 5 MG; Start 08/21/18 at 21:49 Ascorbic Acid (Vitamin C) 500 mg TID NGT Last administered on 08/24/18 12:10; Admin Dose 500 MG; Start 08/21/18 at 21:49 Atorvastatin Calcium (Lipitor) 40 mg HS PO Last administered on 08/23/18 21:22; Admin Dose 40 MG; Start 08/21/18 at 21:51 Carvedilol (Coreg) 12.5 mg BID PO Last administered on 08/24/18 08:59; Admin Dose 12.5 MG; Start 08/21/18 at 21:51 Docusate Sodium (Colace) 250 mg BID PO Last administered on 08/24/18 08:57; Admin Dose 250 MG; Start 08/21/18 at 21:51 Polyethylene Glycol (Miralax) 17 gm TID PO Last administered on 08/24/18 09:07; Admin Dose 17 GM; Start 08/21/18 at 21:53 Amlodipine Besylate (Norvasc) 5 mg DAILY PO Last administered on 08/24/18 09:06; Admin Dose 5 MG; Start 08/22/18 at 09:00 Magnesium Hydroxide (Milk Of Mag) 30 ml BID PRN PO CONSTIPATION Last administered on 08/22/18 17:19; Admin Dose 30 ML; Start 08/22/18 at 11:00 Gabapentin (Neurontin) 100 mg BID PO Last administered on 08/24/18 09:07; Admin Dose 100 MG; Start 08/22/18 at 11:00 Lactulose (Enulose) 20 gm DAILY PRN PO CONSTIPATION Last administered on 08/22/18 12:44; Admin Dose 20 GM; Start 08/22/18 at 11:00 Bisacodyl (Dulcolax Supp) 10 mg DAILY PRN [place] CONSTIPATION; Start 08/22/18 at 11:00 Ciprofloxacin (Cipro) 500 mg BID@18 NGT Last administered on 5/5/19at 06:11; Admin Dose 500 MG; Start 08/23/18 at 06:36 Magnesium Hydroxide (Milk Of Mag) 30 ml BID PO Last administered on 08/24/18at 09:07; Admin Dose 30 ML; Start 08/23/18 at 09:00; Stop 08/25/18 at 07:00 Morphine Sulfate (morphine) 1 mg Q6H PRN IV SEVERE PAIN LEVEL 7-10; Start 08/23/18 at 07:00 Hydromorphone HCl (Dilaudid) 1 mg Q4H PRN IV SEVERE PAIN LEVEL 7-10 Last administered on 08/24/18at 16:22; Admin Dose 1 MG; Start 08/23/18 at 14:30 Aspirin (Halfprin) 81 mg DAILY PO Last administered on 08/24/18at 12:10; Admin Dose 81 MG; Start 08/24/18 at 11:00 Nitroglycerin (Nitroglycerin (Sl Tab) 0.4 Mg) 1 tab Q5M PRN SL ANGINA; Start 08/24/18 at 11:30 Ferric Sodium Gluconate Complex 125 mg/Sodium Chloride 100 ml @ 100 mls/hr DAILY@1300 IVPB Last administered on 08/24/18at 13:55; Admin Dose 100 MLS/HR; Start 08/24/18 at 13:00; Stop 08/26/18 at 13:59 KESHIA HARRELL August 24, 2018 16:45
[2018-08-24 20:00] VITALS: BP 126/58; PULSE 65; RESP 18
[2018-08-24] MEDS: ATORVASTATIN 40 MG TAB PO SCH (21:19)
[2018-08-24] MEDS: INSULIN GLARGINE [LANTus] (100 UNITS/ML) SYG SC SCH (23:56)
[2018-08-25] MEDS: IPRATROPIUM (NEB) 0.5 MG/2.5 ML AMP HHN SCH ×4 (01:13→19:51)
[2018-08-25] MEDS: LEVALBUTEROL (NEB) 1.25 MG/0.5 ML AMP HHN SCH ×4 (01:13→19:51)
[2018-08-25] MEDS: ACCU-CHEK XX SCH (02:00)
[2018-08-25 02:30] VITALS: BP 137/69; PULSE 62; RESP 18
[2018-08-25] MEDS: CIPROFLOXACIN 500 MG TAB NGT SCH ×2 (06:14→17:29)
[2018-08-25 07:00] VITALS: BP 146/65; PULSE 58; RESP 18
[2018-08-25] MEDS: INSULIN ASPART [NOVOLOG] 3 ML PEN SC SCH ×7 (08:02→21:00)
[2018-08-25] MEDS: DOCUSATE SODIUM 250 MG CAP PO SCH ×2 (09:00→21:00)
[2018-08-25] MEDS: POLYETHYLENE GLYCOL 17 GM PACKET PO SCH (09:00)
[2018-08-25] MEDS: MAGNESIUM HYDROXIDE 30ML CUP PO SCH (09:00)
[2018-08-25] MEDS: GABAPENTIN 100 MG CAP PO SCH ×3 (09:15→21:06)
[2018-08-25] MEDS: CLOPIDOGREL 75 MG TAB NGT SCH (09:16)
[2018-08-25] MEDS: FAMOTIDINE 20 MG TAB PO SCH (09:16)
[2018-08-25] MEDS: ASCORBIC ACID 500 MG TAB NGT SCH ×3 (09:16→21:06)
[2018-08-25] MEDS: APIXABAN 5 MG TABLET PO SCH ×2 (09:16→21:06)
[2018-08-25] MEDS: FUROSEMIDE 40 MG TAB PO SCH (09:19)
[2018-08-25] MEDS: AMLODIPINE 5 MG TAB PO SCH (09:19)
--- NOTE | 2018-08-25 09:48 | PN ---
Date/Time of Note Date/Time of Note DATE: 08/25/18 TIME: 09:46 Objective Vital Signs Date Temp Pulse Resp B/P (MAP) Pulse Ox O2 O2 Flow FiO2 Time Delivery Rate 08/25/18 2.0 07:33 08/25/18 97.5 58 18 146/65 96 Room Air 07:00 (92) Intake and Output 08/24/18 08/24/18 08/25/18 1515:00 23:00 07:00 IntakeIntake Total 100 ml 1200 ml OutputOutput Total 250 ml 800 ml 200 ml BalanceBalance -150 ml 400 ml -200 ml Exam INTERDISCIPLINARY TEAM CONFERENCE Attended by PT, OT, ST, Diver Helper, Social Work, Rehabilitation Nursing, Rn Mobile and Data Storage SpecialistFlat Spring Assembler Exam: Pulm-cta Abd-soft BOWEL- Cont BLADDER-Cont SKIN- intact OT- DRESSING-mod/max BATHING-mod/max TOILETING-mod/max PT- BED MOBILITY-max TRANSFERS-max AMBULATION-max 10 feet A/P- Interdisciplinary team conference held today. Please see interdisciplinary sheet. Working toward d.c. on 09/06 with post discharge follow up of physical therapy, occupational therapy. Results/Medications Result Diagram: 08/25/1831 08/25/1831 Results 24 hrs Laboratory Tests Test 08/24/18 11:56 08/24/18 13:08 08/24/18 17:48 08/24/18 19:43 Bedside Glucose 232 H 123 Troponin I 1.190 *H 1.210 *H Test 08/24/18 21:16 08/24/18 23:54 08/25/18 02:28 08/25/18 06:31 Bedside Glucose 184 205 180 White Blood Count 7.2 Red Blood Count 3.03 L Hemoglobin 8.7 L Hematocrit 27.5 L Mean Corpuscular Volume 90.8 Mean Corpuscular 28.7 L Hemoglobin Mean Corpuscular 31.6 L Hemoglobin Concent Red Cell Distribution 14.2 Width Platelet Count 243 Mean Platelet Volume 11.7 H Immature Granulocytes % 0.600 H Neutrophils % 65.4 Lymphocytes % 17.8 Monocytes % 12.5 H Eosinophils % 3.3 Basophils % 0.4 Nucleated Red Blood 0.0 Cells % Immature Granulocytes # 0.040 H Neutrophils # 4.7 Lymphocytes # 1.3 Monocytes # 0.9 Eosinophils # 0.2 Basophils # 0.0 Nucleated Red Blood 0.0 Cells # Sodium Level 135 Potassium Level 4.1 Chloride Level 94 L Carbon Dioxide Level 34 H Anion Gap 7 Blood Urea Nitrogen 48 H Creatinine 2.00 H Est Glomerular Filtrat Rate mL/min Glucose Level 152 Calcium Level 8.8 Total Bilirubin 0.5 Direct Bilirubin 0.00 Indirect Bilirubin 0.5 Aspartate Amino 23 Transf (AST/SGOT) Alanine 23 Aminotransferase (ALT/SG PT) Alkaline Phosphatase 60 Total Protein 6.5 Albumin 3.3 Globulin 3.20 Albumin/Globulin Ratio 1.03 Test 08/25/18 07:55 Bedside Glucose 167 Medications Current Medications Ondansetron HCl (Zofran Inj) 4 mg Q6H PRN IV NAUSEA AND/OR VOMITING; Start at 21:08 Albumin Human 250 ml @ 500 mls/hr PRN PRN IV CVP< 8, OR SBP<90; Start 08/21/18 at 21:08 Clopidogrel Bisulfate (plaVIX) 75 mg DAILY NGT Last administered on 08/25/18at 09:16; Admin Dose 75 MG; Start 08/21/18 at 21:08 Levalbuterol (Xopenex Neb) 1.25 mg Q6H RESP THERAPY HHN Last administered on 08/25/18at 01:13; Admin Dose 1.25 MG; Start 08/21/18 at 21:08 Ipratropium [place] (Atrovent 0.02% (Neb)) 0.5 mg Q6H RESP THERAPY HHN Last administered on 08/25/18at 01:13; Admin Dose 0.5 MG; Start 08/21/18 at 21:08 Diagnostic Test (Pha) (Accu-Chek) 1 ea 02 XX Last administered on 08/23/18at 02:0 0; Admin Dose 1 EA; Start 08/21/18 at 21:08 Miscellaneous Information 1 ea NOTE XX ; Start 08/21/18 at 21:08 Glucose (Glutose) 15 gm Q15M PRN PO DECREASED GLUCOSE; Start 08/21/18 at 21:08 Glucose (Glutose) 22.5 gm Q15M PRN PO DECREASED GLUCOSE; Start 08/21/18 at 21:08 Dextrose (D50w Syringe) 25 ml Q15M PRN IV DECREASED GLUCOSE; Start 08/21/18 at 21:08 Dextrose (D50w Syringe) 50 ml Q15M PRN IV DECREASED GLUCOSE; Start 08/21/18 at 21:08 Glucagon (Glucagen) 1 mg Q15M PRN IM DECREASED GLUCOSE; Start 08/21/18 at 21:08 Glucose (Glutose) 15 gm Q15M PRN BUCCAL DECREASED GLUCOSE; Start 08/21/18 at 21:08 Furosemide (Lasix) 40 mg DAILY PO Last administered on 08/25/18 09:19; Admin Dose 40 MG; Start 08/21/18 at 21:08 Insulin Glargine (Lantus) 28 units 2300 SC Last administered on 08/24/18 23:56; Admin Dose 28 UNITS; Start 08/21/18 at 21:08 Famotidine (Pepcid) 20 mg DAILY PO Last administered on 08/25/18 09:16; Admin Dose 20 MG; Start 08/21/18 at 21:08 Insulin Aspart (Novolog Insulin Pen) 10 unit WITH MEALS SC Last administered on 08/25/18 08:02; Admin Dose 10 UNIT; Start 08/21/18 at 21:08 Insulin Aspart (Novolog Insulin Pen) NOVOLOG *MODERATE* ALGORITHM WITH MEALS BEDTIME SC Last administered on 08/25/18 08:03; Admin Dose 2 UNIT; Start 08/21/18 at 21:08 Oxycodone/ Acetaminophen (Endocet (10/ 325)) 1 tab Q4H PRN PO MODERATE PAIN LEVEL 4-6 Last administered on 08/22/18 21:31; Admin Dose 1 TAB; Start 08/21/18 at 21:08 Hydralazine HCl (Apresoline) 10 mg Q4H PRN IV SBP >150; Start 08/21/18 at 21:30 Acetaminophen (Tylenol Tab) 650 mg Q3H PRN PO ELEVATED TEMPERATURE; Start 08/21/18 at 22:00 Apixaban (Eliquis) 5 mg BID PO Last administered on 08/25/18 09:16; Admin Dose 5 MG; Start 08/21/18 at 21:49 Ascorbic Acid (Vitamin C) 500 mg TID NGT Last administered on 08/25/18 09:16; Admin Dose 500 MG; Start 08/21/18 at 21:49 Atorvastatin Calcium (Lipitor) 40 mg HS PO Last administered on 08/24/18 21:19; Admin Dose 40 MG; Start 08/21/18 at 21:51 Carvedilol (Coreg) 12.5 mg BID PO Last administered on 08/25/18 09:19; Admin Dose 12.5 MG; Start 08/21/18 at 21:51 Docusate Sodium (Colace) 250 mg BID PO Last administered on 08/24/18 21:19; Admin Dose 250 MG; Start 08/21/18 at 21:51 Polyethylene Glycol (Miralax) 17 gm TID PO Last administered on 08/24/18 21:20; Admin Dose 17 GM; Start 08/21/18 at 21:53 Amlodipine Besylate (Norvasc) 5 mg DAILY PO Last administered on 08/25/18 09:19; Admin Dose 5 MG; Start 08/22/18 at 09:00 Magnesium Hydroxide (Milk Of Mag) 30 ml BID PRN PO CONSTIPATION Last a dministered on 08/22/18 17:19; Admin Dose 30 ML; Start 08/22/18 at 11:00 Gabapentin (Neurontin) 100 mg BID PO Last administered on 08/25/18 09:15; Admin Dose 100 MG; Start 08/22/18 at 11:00 Lactulose (Enulose) 20 gm DAILY PRN PO CONSTIPATION Last administered on 08/22/18 12:44; Admin Dose 20 GM; Start 08/22/18 at 11:00 Bisacodyl (Dulcolax Supp) 10 mg DAILY PRN [place] CONSTIPATION; Start 08/22/18 at 11: 00 Ciprofloxacin (Cipro) 500 mg BID@06,18 NGT Last administered on 08/25/18 06:14; Admin Dose 500 MG; Start 08/23/18 at 06:36 Morphine Sulfate (morphine) 1 mg Q6H PRN IV SEVERE PAIN LEVEL 7-10; Start 08/23/18 at 07:00 Hydromorphone HCl (Dilaudid) 1 mg Q4H PRN IV SEVERE PAIN LEVEL 7-10 Last administered on 08/24/18 19:33; Admin Dose 1 MG; Start 08/23/18 at 14:30 Nitroglycerin (Nitroglycerin (Sl Tab) 0.4 Mg) 1 tab Q5M PRN SL ANGINA; Start 08/24/18 at 11:30 Ferric Sodium Gluconate Complex 125 mg/Sodium Chloride 100 ml @ 100 mls/hr DAILY@1300 IVPB Last administered on 08/24/18at 13:55; Admin Dose 100 MLS/HR; Start 08/24/18 at 13:00; Stop 08/26/18 at 13:59 Magnesium Hydroxide (Milk Of Mag) 100 ml BID PO Last administered on 08/24/18at 21:18; Admin Dose 100 ML; Start 08/24/18 at 20:00 YARIEL MARIE MD August 25, 2018 09:48
--- NOTE | 2018-08-25 09:55 | CONS ---
Assessment/Plan Assessment/Plan Hospital Course (Demo Recall) NSTEMI: residual trop elevation likely from CABG. Trend does not suggest ACS. No symptoms. Ankle pain: ?gout Acute on chronic diastolic CHF: ~euvolemic Acute on chronic renal failure: Cr baseline 1.6. Worse after CABG.Now ~2 Cardiogenic shock: Transient post op Acute respiratory failure: s/p extubation 08/16 Anemia: from operative blood loss. Required one unit. No active bleeding s/p CABG x5 08/13/18: WINN to LAD, SVG to ramus sequence to obtuse marginal artery, SVG to PDA, SVG to left ventricular extension branch. Difficult case per Dr. Howell with poor targets. CAD: s/p multiple prior PCIs. Cath 08/11/18 with multivessel disease. s/p CABG above Recent left femoral DVT: on Eliquis as outpt. DM HT HL -will discuss with Dr. Castillo for possible trial of gout treatment -lasix 40mg PO daily -Eliquis 5mg BID -continue plavix -coreg 12.5mg BID -amlodipine 5mg -lipitor 40mg Consultation Date/Type/Reason Admit Date/Time August 21, 2018 at 18:31 Initial Consult Date Type of Consult Cardiology Date/Time of Note DATE: 08/25/18 TIME: 09:53 24 HR Interval Summary Free Text/Dictation No chest pain or SOB. Still with right ankle pain Exam/Review of Systems Vital Signs Vitals Vital Signs Date Temp Pulse Resp B/P (MAP) Pulse Ox O2 O2 Flow FiO2 Time Delivery Rate 08/25/18 2.0 07:33 08/25/18 97.5 58 18 146/65 96 Room Air 07:00 (92) Intake and Output 08/24/18 08/24/18 08/25/18 1515:00 23:00 07:00 IntakeIntake Total 100 ml 1200 ml OutputOutput Total 250 ml 800 ml 200 ml BalanceBalance -150 ml 400 ml -200 ml Exam Constitutional: alert, oriented Psych: no complaints, nl mood/affect Head: normocephalic, atraumatic Neck: No jvd Respiratory: diminished breath sounds; No clear to auscultation Cardiovascular: regular rate and rhythm Gastrointestinal: soft, non-tender 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: nl mental status, nl speech Labs Result Diagram: 08/25/18 0631 08/25/18 0631 Results 24hrs Laboratory Tests Test 08/24/18 11:56 08/24/18 13:08 08/24/18 17:48 08/24/18 19:43 Bedside Glucose 232 H 123 Troponin I 1.190 *H 1.210 *H Test 08/24/18 21:16 08/24/18 23:54 08/25/18 02:28 08/25/18 06:31 Bedside Glucose 184 205 180 White Blood Count 7.2 Red Blood Count 3.03 L Hemoglobin 8.7 L Hematocrit 27.5 L Mean Corpuscular Volume 90.8 Mean Corpuscular 28.7 L Hemoglobin Mean Corpuscular 31.6 L Hemoglobin Concent Red Cell Distribution 14.2 Width Platelet Count 243 Mean Platelet Volume 11.7 H Immature Granulocytes % 0.600 H Neutrophils % 65.4 Lymphocytes % 17.8 Monocytes % 12.5 H Eosinophils % 3.3 Basophils % 0.4 Nucleated Red Blood 0.0 Cells % Immature Granulocytes # 0.040 H Neutrophils # 4.7 Lymphocytes # 1.3 Monocytes # 0.9 Eosinophils # 0.2 Basophils # 0.0 Nucleated Red Blood 0.0 Cells # Sodium Level 135 Potassium Level 4.1 Chloride Level 94 L Carbon Dioxide Level 34 H Anion Gap 7 Blood Urea Nitrogen 48 H Creatinine 2.00 H Est Glomerular Filtrat Rate mL/min Glucose Level 152 Calcium Level 8.8 Total Bilirubin 0.5 Direct Bilirubin 0.00 Indirect Bilirubin 0.5 Aspartate Amino 23 Transf (AST/SGOT) Alanine 23 Aminotransferase (ALT/SG PT) Alkaline Phosphatase 60 Total Protein 6.5 Albumin 3.3 Globulin 3.20 Albumin/Globulin Ratio 1.03 Test 08/25/18 07:55 Bedside Glucose 167 Medications Medications Current Medications Ondansetron HCl (Zofran Inj) 4 mg Q6H PRN IV NAUSEA AND/OR VOMITING; Start 08/21/18 at 21:08 Albumin Human 250 ml @ 500 mls/hr PRN PRN IV CVP< 8, OR SBP<90; Start 08/21/18 at 21:08 Clopidogrel Bisulfate (plaVIX) 75 mg DAILY NGT Last administered on 08/25/18at 09:16; Admin Dose 75 MG; Start 08/21/18 at 21:08 Levalbuterol (Xopenex Neb) 1.25 mg Q6H RESP THERAPY HHN Last administered on 08/25/18 01:13; Admin Dose 1.25 MG; Start 08/21/18 at 21:08 Ipratropium [place] (Atrovent 0.02% (Neb)) 0.5 mg Q6H RESP THERAPY HHN Last administered on 08/25/18 01:13; Admin Dose 0.5 MG; Start 08/21/18 at 21:08 Diagnostic Test (Pha) (Accu-Chek) 1 ea 02 XX Last administered on 08/23/18at 02:00; Admin Dose 1 EA; Start 08/21/18 at 21:08 Miscellaneous Information 1 ea NOTE XX ; Start 08/21/18 at 21:08 Glucose (Glutose) 15 gm Q15M PRN PO DECREASED GLUCOSE; Start 08/21/18 at 21:08 Glucose (Glutose) 22.5 gm Q15M PRN PO DECREASED GLUCOSE; Start 08/21/18 at 21:08 Dextrose (D50w Syringe) 25 ml Q15M PRN IV DECREASED GLUCOSE; Start 08/21/18 at 21:08 Dextrose (D50w Syringe) 50 ml Q15M PRN IV DECREASED GLUCOSE; Start 08/21/18 at 21:08 Glucagon (Glucagen) 1 mg Q15M PRN IM DECREASED GLUCOSE; Start 08/21/18 at 21:08 Glucose (Glutose) 15 gm Q15M PRN BUCCAL DECREASED GLUCOSE; Start 08/21/18 at 21:08 Furosemide (Lasix) 40 mg DAILY PO Last administered on 08/25/18 09:19; Admin Dose 40 MG; Start 08/21/18 at 21:08 Insulin Glargine (Lantus) 28 units 2300 SC Last administered on 08/24/18 23:56; Admin Dose 28 UNITS; Start 08/21/18 at 21:08 Famotidine (Pepcid) 20 mg DAILY PO Last administered on 08/25/18 09:16; Admin Dose 20 MG; Start 08/21/18 at 21:08 Insulin Aspart (Novolog Insulin Pen) 10 unit WITH MEALS SC Last administered on 08/25/18 08:02; Admin Dose 10 UNIT; Start 08/21/18 at 21:08 Insulin Aspart (Novolog Insulin Pen) NOVOLOG *MODERATE* ALGORITHM WITH MEALS BEDTIME SC Last administered on 08/25/18 08:03; Admin Dose 2 UNIT; Start 08/21/18 at 21:08 Oxycodone/ Acetaminophen (Endocet (10/ 325)) 1 tab Q4H PRN PO MODERATE PAIN LEVEL 4-6 Last administered on 08/22/18 21:31; Admin Dose 1 TAB; Start 08/21/18 at 21:08 Hydralazine HCl (Apresoline) 10 mg Q4H PRN IV SBP >150; Start 08/21/18 at 21:30 Acetaminophen (Tylenol Tab) 650 mg Q3H PRN PO ELEVATED TEMPERATURE; Start 08/21/18 at 22:00 Apixaban (Eliquis) 5 mg BID PO Last administered on 08/25/18 09:16; Admin Dose 5 MG; Start 08/21/18 at 21:49 Ascorbic Acid (Vitamin C) 500 mg TID NGT Last administered on 08/25/18 09:16; Admin Dose 500 MG; Start 08/21/18 at 21:49 Atorvastatin Calcium (Lipitor) 40 mg HS PO Last administered on 08/24/18 21:19; Admin Dose 40 MG; Start 08/21/18 at 21:51 Carvedilol (Coreg) 12.5 mg BID PO Last administered on 08/25/18 09:19; Admin Dose 12.5 MG; Start 08/21/18 at 21:51 Docusate Sodium (Colace) 250 mg BID PO Last administered on 08/24/18 21:19; Admin Dose 250 MG; Start 08/21/18 at 21:51 Polyethylene Glycol (Miralax) 17 gm TID PO Last administered on 08/24/18 21:20; Admin Dose 17 GM; Start 08/21/18 at 21:53 Amlodipine Besylate (Norvasc) 5 mg DAILY PO Last administered on 08/25/18 09:19; Admin Dose 5 MG; Start 08/22/18 at 09:00 Magnesium Hydroxide (Milk Of Mag) 30 ml BID PRN PO CONSTIPATION Last administered on 08/22/18 17:19; Admin Dose 30 ML; Start 08/22/18 at 11:00 Gabapentin (Neurontin) 100 mg BID PO Last administered on 08/25/18 09:15; Admin Dose 100 MG; Start 08/22/18 at 11:00 Lactulose (Enulose) 20 gm DAILY PRN PO CONSTIPATION Last administered on 08/22/18at 12:44; Admin Dose 20 GM; Start 08/22/18 at 11:00 Bisacodyl (Dulcolax Supp) 10 mg DAILY PRN [place] CONSTIPATION; Start 08/22/18 at 11:00 Ciprofloxacin (Cipro) 500 mg BID@06,18 NGT Last administered on 08/25/18at 06:14; Admin Dose 500 MG; Start 08/23/18 at 06:36 Morphine Sulfate (morphine) 1 mg Q6H PRN IV SEVERE PAIN LEVEL 7-10; Start 08/23/18 at 07:00 Hydromorphone HCl (Dilaudid) 1 mg Q4H PRN IV SEVERE PAIN LEVEL 7-10 Last administered on 08/24/18at 19:33; Admin Dose 1 MG; Start 08/23/18 at 14:30 Nitroglycerin (Nitroglycerin (Sl Tab) 0.4 Mg) 1 tab Q5M PRN SL ANGINA; Start 08/24/18 at 11:30 Ferric Sodium Gluconate Complex 125 mg/Sodium Chloride 100 ml @ 100 mls/hr DAILY@1300 IVPB Last administered on 08/24/18at 13:55; Admin Dose 100 MLS/HR; Start 08/24/18 at 13:00; Stop 08/26/18 at 13:59 Magnesium Hydroxide (Milk Of Mag) 100 ml BID PO Last administered on 08/24/18at 21:18; Admin Dose 100 ML; Start 08/24/18 at 20:00 ALONDRA GILBERT August 25, 2018 09:55
[2018-08-25] MEDS ORDERED: POLYETHYLENE GLYCOL 17 GM PACKET PO PRN (12:00)
--- NOTE | 2018-08-25 12:16 | CONS ---
Assessment/Plan Assessment/Plan Assessment/Plan (Daily) 1. acute kidney injury vs possible baseline CKD II due to ishcemic ATN + Hemodynamics 2. 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 H/o HTN 4. H/o HL 5. H/o DM II 6. H/o CAD with previous stent placement 7. Anemia of chronic disease with iron deficiency Plan: BUN/Cr bumped to 48/2.0 Bp stable - other electrolytes stable continue Lasix 40mg po daily amlodipine 5 mg po daily, Eliquis 5mg pO BID will follow up Consultation Date/Type/Reason Admit Date/Time August 21, 2018 at 18:31 Initial Consult Date Type of Consult NEPHROLOGY Reason for Consultation acute on chronic renal failure Requesting Provider: NERIS BROTHERS MD Date/Time of Note DATE: 08/25/18 TIME: 12:16 Exam/Review of Systems Exam Vitals Vital Signs Date Temp Pulse Resp B/P (MAP) Pulse Ox O2 O2 Flow FiO2 Time Delivery Rate 08/25/18 2.0 07:33 08/25/18 97.5 58 18 146/65 96 Room Air 07:00 (92) Intake and Output 08/24/18 08/24/18 08/25/18 1515:00 23:00 07:00 IntakeIntake Total 100 ml 1200 ml OutputOutput Total 250 ml 800 ml 200 ml BalanceBalance -150 ml 400 ml -200 ml Results Result Diagram: 08/25/18 0631 08/25/18 0631 Results 24hrs Laboratory Tests Test 08/24/18 13:08 08/24/18 17:48 08/24/18 19:43 08/24/18 21:16 Troponin I 1.190 *H 1.210 *H Bedside Glucose 123 184 Test 08/24/18 23:54 08/25/18 02:28 08/25/18 06:31 08/25/18 07:55 Bedside Glucose 205 180 167 White Blood Count 7.2 Red Blood Count 3.03 L Hemoglobin 8.7 L Hematocrit 27.5 L Mean Corpuscular Volume 90.8 Mean Corpuscular 28.7 L Hemoglobin Mean Corpuscular 31.6 L Hemoglobin Concent Red Cell Distribution 14.2 Width Platelet Count 243 Mean Platelet Volume 11.7 H Immature Granulocytes % 0.600 H Neutrophils % 65.4 Lymphocytes % 17.8 Monocytes % 12.5 H Eosinophils % 3.3 Basophils % 0.4 Nucleated Red Blood 0.0 Cells % Immature Granulocytes # 0.040 H Neutrophils # 4.7 Lymphocytes # 1.3 Monocytes # 0.9 Eosinophils # 0.2 Basophils # 0.0 Nucleated Red Blood 0.0 Cells # Sodium Level 135 Potassium Level 4.1 Chloride Level 94 L Carbon Dioxide Level 34 H Anion Gap 7 Blood Urea Nitrogen 48 H Creatinine 2.00 H Est Glomerular Filtrat Rate mL/min Glucose Level 152 Calcium Level 8.8 Total Bilirubin 0.5 Direct Bilirubin 0.00 Indirect Bilirubin 0.5 Aspartate Amino 23 Transf (AST/SGOT) Alanine 23 Aminotransferase (ALT/SG PT) Alkaline Phosphatase 60 Total Protein 6.5 Albumin 3.3 Globulin 3.20 Albumin/Globulin Ratio 1.03 Test 08/25/18 11:44 Bedside Glucose 231 H Medications Medication Current Medications Ondansetron HCl (Zofran Inj) 4 mg Q6H PRN IV NAUSEA AND/OR VOMITING; Start 08/21/18 at 21:08 Albumin Human 250 ml @ 500 mls/hr PRN PRN IV CVP< 8, OR SBP<90; Start 08/21/18 at 21:08 Clopidogrel Bisulfate (plaVIX) 75 mg DAILY NGT Last administered on 08/25/18at 09:16; Admin Dose 75 MG; Start 08/21/18 at 21:08 Levalbuterol (Xopenex Neb) 1.25 mg Q6H RESP THERAPY HHN Last administered on 08/25/18at 01:13; Admin Dose 1.25 MG; Start 08/21/18 at 21:08 Ipratropium [place] (Atrovent 0.02% (Neb)) 0.5 mg Q6H RESP THERAPY HHN Last administered on 08/25/18at 01:13; Admin Dose 0.5 MG; Start 08/21/18 at 21:08 Diagnostic Test (Pha) (Accu-Chek) 1 ea 02 XX Last administered on 08/23/18at 02:00; Admin Dose 1 EA; Start 08/21/18 at 21:08 Miscellaneous Information 1 ea NOTE XX ; Start 08/21/18 at 21:08 Glucose (Glutose) 15 gm Q15M PRN PO DECREASED GLUCOSE; Start 08/21/18 at 21:08 Glucose (Glutose) 22.5 gm Q15M PRN PO DECREASED GLUCOSE; Start 08/21/18 at 21:08 Dextrose (D50w Syringe) 25 ml Q15M PRN IV DECREASED GLUCOSE; Start 08/21/18 at 21:08 Dextrose (D50w Syringe) 50 ml Q15M PRN IV DECREASED GLUCOSE; Start 08/21/18 at 21:08 Glucagon (Glucagen) 1 mg Q15M PRN IM DECREASED GLUCOSE; Start 08/21/18 at 21:08 Glucose (Glutose) 15 gm Q15M PRN BUCCAL DECREASED GLUCOSE; Start 08/21/18 at 21:08 Furosemide (Lasix) 40 mg DAILY PO Last administered on 08/25/18 09:19; Admin Dose 40 MG; Start 08/21/18 at 21:08 Insulin Glargine (Lantus) 28 units 2300 SC Last administered on 08/24/18 23:56; Admin Dose 28 UNITS; Start 08/21/18 at 21:08 Famotidine (Pepcid) 20 mg DAILY PO Last administered on 08/25/18 09:16; Admin Dose 20 MG; Start 08/21/18 at 21:08 Insulin Aspart (Novolog Insulin Pen) 10 unit WITH MEALS SC Last administered on 08/25/18 11:47; Admin Dose 10 UNIT; Start 08/21/18 at 21:08 Insulin Aspart (Novolog Insulin Pen) NOVOLOG *MODERATE* ALGORITHM WITH MEALS BEDTIME SC Last administered on 08/25/18 11:48; Admin Dose 6 UNIT; Start 08/21/18 at 21:08 Oxycodone/ Acetaminophen (Endocet (10/ 325)) 1 tab Q4H PRN PO MODERATE PAIN LEVEL 4-6 Last administered on 08/22/18 21:31; Admin Dose 1 TAB; Start 08/21/18 at 21:08 Hydralazine HCl (Apresoline) 10 mg Q4H PRN IV SBP >150; Start 08/21/18 at 21:30 Acetaminophen (Tylenol Tab) 650 mg Q3H PRN PO ELEVATED TEMPERATURE; Start 08/21/18 at 22:00 Apixaban (Eliquis) 5 mg BID PO Last administered on 08/25/18 09:16; Admin Dose 5 MG; Start 08/21/18 at 21:49 Ascorbic Acid (Vitamin C) 500 mg TID NGT Last administered on 08/25/18 09:16; Admin Dose 500 MG; Start 08/21/18 at 21:49 Atorvastatin Calcium (Lipitor) 40 mg HS PO Last administered on 08/24/18 21:19; Admin Dose 40 MG; Start 08/21/18 at 21:51 Carvedilol (Coreg) 12.5 mg BID PO Last administered on 08/25/18 09:19; Admin Dose 12.5 MG; Start 08/21/18 at 21:51 Docusate Sodium (Colace) 250 mg BID PO Last administered on 08/24/18 21:19; Admin Dose 250 MG; Start 08/21/18 at 21:51 Amlodipine Besylate (Norvasc) 5 mg DAILY PO Last administered on 08/25/18 09:19; Admin Dose 5 MG; Start 08/22/18 at 09:00 Magnesium Hydroxide (Milk Of Mag) 30 ml BID PRN PO CONSTIPATION Last administered on 08/22/18at 17:19; Admin Dose 30 ML; Start 08/22/18 at 11:00 Lactulose (Enulose) 20 gm DAILY PRN PO CONSTIPATION Last administered on 08/22/18at 12:44; Admin Dose 20 GM; Start 08/22/18 at 11:00 Bisacodyl (Dulcolax Supp) 10 mg DAILY PRN SC CONSTIPATION; Start 08/22/18 at 11:00 Ciprofloxacin (Cipro) 500 mg BID@06,18 NGT Last administered on 08/25/18at 06:14; Admin Dose 500 MG; Start 08/23/18 at 06:36 Morphine Sulfate (morphine) 1 mg Q6H PRN IV SEVERE PAIN LEVEL 7-10; Start 08/23/18 at 07:00 Hydromorphone HCl (Dilaudid) 1 mg Q4H PRN IV SEVERE PAIN LEVEL 7-10 Last administered on 08/24/18at 19:33; Admin Dose 1 MG; Start 08/23/18 at 14:30 Nitroglycerin (Nitroglycerin (Sl Tab) 0.4 Mg) 1 tab Q5M PRN SL ANGINA; Start 08/24/18 at 11:30 Ferric Sodium Gluconate Complex 125 mg/Sodium Chloride 100 ml @ 100 mls/hr DAILY@1300 IVPB Last administered on 08/24/18at 13:55; Admin Dose 100 MLS/HR; Start 08/24/18 at 13:00; Stop 08/26/18 at 13:59 Gabapentin (Neurontin) 100 mg TID PO ; Start 08/25/18 at 13:00 Polyethylene Glycol (Miralax) 17 gm TID PRN PO CONSTIPATION; Start 08/25/18 at 12:00 DARRYL SOOD MD August 25, 2018 12:16
[2018-08-25] MEDS: SOD FERRIC GLUC COMPLX 125 MG in SOD CHLORIDE 0.9% 100 ML IVPB SCH (12:45)
[2018-08-25 14:00] VITALS: BP 133/63; PULSE 63; RESP 18
[2018-08-25 20:00] VITALS: BP 127/58; PULSE 64; RESP 18
[2018-08-25] MEDS: ATORVASTATIN 40 MG TAB PO SCH (21:07)
[2018-08-25] MEDS: INSULIN GLARGINE [LANTus] (100 UNITS/ML) SYG SC SCH (22:35)
--- NOTE | 2018-08-25 22:57 | PN ---
Date/Time of Note Date/Time of Note DATE: 08/25/18 TIME: 22:54 Assessment/Plan VTE Prophylaxis Risk score (from Ns)>0 risk: 10 SCD applied (from Ns): No SCD contraindicated: other (on) Pharmacological prophylaxis: apixaban Lines/Catheters IV C[facility]ter Type [facility]from [facility] [place] [employer] line still needed: No Urinary Cath still in place: No Reason Cath still needed: urinary retention Assessment/Plan Assessment/Plan 1. Ischemic heart disease angina three-vessel coronary a. disease.s/p CABG x5 08/13/18: WINN to LAD, SVG to ramus sequence to obtuse marginal artery, SVG to PDA, SVG to left ventricular extension branch. Difficult case per Dr. Howell with poor targets.Vein harvesting and epiaortic scanning of the ascending aorta.CAD: s/p multiple prior PCIs. Cath 08/11/18 with multivessel disease. Now with elevated level of the troponin the second 1 is 1.1. We will get q. 6 hours x 2. The patient denies having the chest pain. 2. Hypertension with congestive heart failure diastolic- improved. 3. Diabetes mellitus type 2 blood sugar better controlled. Continue titration. 4. History of cholecystitis and pancreatitis 5. Acute on chronic kidney disease with baseline creatinine being 1.6 up to 3.5 came down to 2.05 yesterday and 1.95 today. Improved after hydration,now mildly dehydrated; 6. Dyslipidemia better controlled 7. History of nasal bleeding recurrent- stable. 8. Morbid obesity with snoring and apnea and daytime sleepiness 9. BPH with nocturia 10. Low back pain with radiculopathy 11. 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 Status post cataract ectomy 13. Diabetic nephropathy retinopathy and angiopathy and neuropathy. 14. Constipation- improved. 15. Grief reaction after the of her 16. Gastroesophageal reflux disease 17. Deep venous thrombosis of the left saphenous vein, 2-3 months ago;was on Eliquis 5 mg twice daily, stopped: since 08/11/2018. 18. Gastritis 19. COPD. Quit smoking 10years ago. 02sat now 95% with persistent cough. 20. History of nephrolithiasis. 21. Drop of hematocrit; s/p 2 units of prbc tx. stable. 22. Drop of albumone and total protein and mild elevation of lft's. 23.Myopathy 24.Lethargy 25.Acute on chronic kidney disease, improving 25.Unstable gate Result Diagram: 08/25/18 0631 08/25/18 0631 Results 24hrs Laboratory Tests Test 08/24/18 23:54 08/25/18 02:28 08/25/18 06:31 08/25/18 07:55 Bedside Glucose 205 180 167 White Blood Count 7.2 Red Blood Count 3.03 L Hemoglobin 8.7 L Hematocrit 27.5 L Mean Corpuscular Volume 90.8 Mean Corpuscular 28.7 L Hemoglobin Mean Corpuscular 31.6 L Hemoglobin Concent Red Cell Distribution 14.2 Width Platelet Count 243 Mean Platelet Volume 11.7 H Immature Granulocytes % 0.600 H Neutrophils % 65.4 Lymphocytes % 17.8 Monocytes % 12.5 H Eosinophils % 3.3 Basophils % 0.4 Nucleated Red Blood 0.0 Cells % Immature Granulocytes # 0.040 H Neutrophils # 4.7 Lymphocytes # 1.3 Monocytes # 0.9 Eosinophils # 0.2 Basophils # 0.0 Nucleated Red Blood 0.0 Cells # Sodium Level 135 Potassium Level 4.1 Chloride Level 94 L Carbon Dioxide Level 34 H Anion Gap 7 Blood Urea Nitrogen 48 H Creatinine 2.00 H Est Glomerular Filtrat Rate mL/min Glucose Level 152 Calcium Level 8.8 Total Bilirubin 0.5 Direct Bilirubin 0.00 Indirect Bilirubin 0.5 Aspartate Amino 23 Transf (AST/SGOT) Alanine 23 Aminotransferase (ALT/SG PT) Alkaline Phosphatase 60 Total Protein 6.5 Albumin 3.3 Globulin 3.20 Albumin/Globulin Ratio 1.03 Test 08/25/18 11:44 08/25/18 17:24 08/25/18 21:04 08/25/18 22:33 Bedside Glucose 231 H 206 157 158 Subjective 24 Hr Interval Summary Free Text/Dictation Chest pain right ankle and foot pain. Severe pain in the medial aspect of the right tibial area distally. Severe weakness. Generalized body ache. Constitutional: chills, poor po; No no complaints, No improved, No diaphoresis, No disoriented, No febrile, No requiring IVF, No requiring O2, No other Eyes: pain; No no complaints, No discharge, No redness, No visual change, No other ENT: pain, congestion, discharge; No no complaints, No bleeding, No dysphagia, No sore throat, No other Respiratory: cough, pleuritic pain, shortness of breath; No no complaints, No pain, No sputum, No wheezing, No other Cardiovascular: chest pain, edema; No no complaints, No lightheadedness, No orthopenea, No palpitations, No paroxysmal nocturnal dyspnea, No other Gastrointestinal: constipation, decreased appetite, nausea; No no complaints, No pain, No blood, No diarrhea, No flatus, No passing stool, No vomiting, No other Genitourinary: dysuria; No no complaints, No bleeding, No discharge, No flank pain, No hematuria, No other Musculoskeletal: back pain, bone/joint pain, neck pain; No no complaints, No restricted range of motion, No swelling, No other Skin: No no complaints, No bruising, No erythema, No laceration, No pruritis, No rash, No skin lesions, No other Neurologic: confusion, dizziness, headache; No no complaints, No focal-weakness, No syncope, No seizure, No other Endocrine: No no complaints, No polyuria, No polydypsia, No dry skin, No temp intolerance, No other Lymphatic: No no complaints, No adenopathy, No tender nodes, No lymphadema, No other Psychological: anxiety, confusion Immunologic: No no complaints, No immunodeficiency, No pruritis, No rhinitis, No urticaria, No other Exam/Review of Systems Exam Vitals Vital Signs Date Temp Pulse Resp B/P (MAP) Pulse Ox O2 O2 Flow FiO2 Time Delivery Rate 08/25/18 98.2 64 18 127/58 97 Nasal 2.0 20:00 (81) Cannula Intake and Output 08/24/18 08/24/18 08/25/18 1515:00 23:00 07:00 IntakeIntake Total 100 ml 1200 ml OutputOutput Total 250 ml 800 ml 200 ml BalanceBalance -150 ml 400 ml -200 ml Constitutional: alert, oriented, well developed, distress, frail, obese; No non-verbal, No other Psych: anxiety, confusion; No no complaints, No nl mood/affect, No depression, No suicidal, No other Head: normocephalic, atraumatic; No lacerations, No hematomas, No other Eyes: EOMI, nl lids, PERRL; No nl conjunctiva, No nl sclera, No icteric, No fundi, disc, No other ENMT: No nl external ears & nose, No nl lips & teeth, No nl nasal mucosa & septum, No mucosa pink and moist, No intubated, No tympanic membranes, No other Neck: non-tender, jvd, bruits, nuchal rigidity; No supple, No masses, No thyromegaly, No other Respiratory: normal air movement, congested cough, crackles/rales, diminished breath sounds, intercostal retraction; No clear to auscultation, No labored breathing, No respirations, No tactile fremitus, No wheezing, No other Cardiovascular: nl pulses, bruits, edema, irregular rhythm, systolic murmur; No regular rate and rhythm, No diastolic murmur, No gallop, No jugular venous distention (JVD), No murmurs/extra sounds, No rub, No S3, No S4, No other Gastrointestinal: soft, nl liver, spleen, bowel sounds, distended, rebound or guarding; No non-tender, No ascites, No firm, No hepatomegaly, No mass, No splenomegaly, No surgical scars, No tender, No other Genitourinary - Male: nl penis, nl scrotum Musculoskeletal: joint tenderness, muscle tone, muscle weakness, swelling, other (Swollen right ankle area of the right foot more prominent than the left side. Wound of the venectomy is healing well.); No nl extremities to inspection, No nl gait and stance, No range of motion, No spine non-tender Extremities: No normal pulses, No calf tenderness, No clubbing, No edema, No pitting pedal edema, No palpable cord, No tenderness, No other 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: [employer] II-XII intact, nl mental status, nl speech, nl strength, DTR's symmetric, lethargic, numbness, reflexes, unresponsive, other; No confused, No focal weakness Results Results 24hrs Laboratory Tests Test 08/24/18 23:54 08/25/18 02:28 08/25/18 06:31 08/25/18 07:55 Bedside Glucose 205 180 167 White Blood Count 7.2 Red Blood Count 3.03 L Hemoglobin 8.7 L Hematocrit 27.5 L Mean Corpuscular Volume 90.8 Mean Corpuscular 28.7 L Hemoglobin Mean Corpuscular 31.6 L Hemoglobin Concent Red Cell Distribution 14.2 Width Platelet Count 243 Mean Platelet Volume 11.7 H Immature Granulocytes % 0.600 H Neutrophils % 65.4 Lymphocytes % 17.8 Monocytes % 12.5 H Eosinophils % 3.3 Basophils % 0.4 Nucleated Red Blood 0.0 Cells % Immature Granulocytes # 0.040 H Neutrophils # 4.7 Lymphocytes # 1.3 Monocytes # 0.9 Eosinophils # 0.2 Basophils # 0.0 Nucleated Red Blood 0.0 Cells # Sodium Level 135 Potassium Level 4.1 Chloride Level 94 L Carbon Dioxide Level 34 H Anion Gap 7 Blood Urea Nitrogen 48 H Creatinine 2.00 H Est Glomerular Filtrat Rate mL/min Glucose Level 152 Calcium Level 8.8 Total Bilirubin 0.5 Direct Bilirubin 0.00 Indirect Bilirubin 0.5 Aspartate Amino 23 Transf (AST/SGOT) Alanine 23 Aminotransferase (ALT/SG PT) Alkaline Phosphatase 60 Total Protein 6.5 Albumin 3.3 Globulin 3.20 Albumin/Globulin Ratio 1.03 Test 08/25/18 11:44 08/25/18 17:24 08/25/18 21:04 08/25/18 22:33 Bedside Glucose 231 H 206 157 158 Medications Medication Current Medications Ondansetron HCl (Zofran Inj) 4 mg Q6H PRN IV NAUSEA AND/OR VOMITING; Start 08/21/18 at 21:08 Albumin Human 250 ml @ 500 mls/hr PRN PRN IV CVP< 8, OR SBP<90; Start 08/21/18 at 21:08 Clopidogrel Bisulfate (plaVIX) 75 mg DAILY NGT Last administered on 08/25/18 09:16; Admin Dose 75 MG; Start 08/21/18 at 21:08 Levalbuterol (Xopenex Neb) 1.25 mg Q6H RESP THERAPY HHN Last administered on 08/25/18 19:51; Admin Dose 1.25 MG; Start 08/21/18 at 21:08 Ipratropium [place] (Atrovent 0.02% (Neb)) 0.5 mg Q6H RESP THERAPY HHN Last administered on 08/25/18 19:51; Admin Dose 0.5 MG; Start 08/21/18 at 21:08 Diagnostic Test (Pha) (Accu-Chek) 1 ea 02 XX Last administered on 08/23/18at 02:00; Admin Dose 1 EA; Start 08/21/18 at 21:08 Miscellaneous Information 1 ea NOTE XX ; Start 08/21/18 at 21:08 Glucose (Glutose) 15 gm Q15M PRN PO DECREASED GLUCOSE; Start 08/21/18 at 21:08 Glucose (Glutose) 22.5 gm Q15M PRN PO DECREASED GLUCOSE; Start 08/21/18 at 21:08 Dextrose (D50w Syringe) 25 ml Q15M PRN IV DECREASED GLUCOSE; Start 08/21/18 at 21:08 Dextrose (D50w Syringe) 50 ml Q15M PRN IV DECREASED GLUCOSE; Start 08/21/18 at 21:08 Glucagon (Glucagen) 1 mg Q15M PRN IM DECREASED GLUCOSE; Start 08/21/18 at 21:08 Glucose (Glutose) 15 gm Q15M PRN BUCCAL DECREASED GLUCOSE; Start 08/21/18 at 21:08 Furosemide (Lasix) 40 mg DAILY PO Last administered on 08/25/18 09:19; Admin D ose 40 MG; Start 08/21/18 at 21:08 Insulin Glargine (Lantus) 28 units 2300 SC Last administered on 08/25/18 22:35; Admin Dose 28 UNITS; Start 08/21/18 at 21:08 Famotidine (Pepcid) 20 mg DAILY PO Last administered on 08/25/18 09:16; Admin Dose 20 MG; Start 08/21/18 at 21:08 Insulin Aspart (Novolog Insulin Pen) 10 unit WITH MEALS SC Last administered on 08/25/18 17:28; Admin Dose 10 UNIT; Start 08/21/18 at 21:08 Insulin Aspart (Novolog Insulin Pen) NOVOLOG *MODERATE* ALGORITHM WITH MEALS BEDTIME SC Last administered on 08/25/18 17:29; Admin Dose 4 UNIT; Start 08/21/18 at 21:08 Oxycodone/ Acetaminophen (Endocet (10/ 325)) 1 tab Q4H PRN PO MODERATE PAIN LEVEL 4-6 Last administered on 08/22/18 21:31; Admin Dose 1 TAB; Start 08/21/18 at 21:08 Hydralazine HCl (Apresoline) 10 mg Q4H PRN IV SBP >150; Start 08/21/18 at 21:30 Acetaminophen (Tylenol Tab) 650 mg Q3H PRN PO ELEVATED TEMPERATURE; Start 08/21/18 at 22:00 Apixaban (Eliquis) 5 mg BID PO Last administered on 08/25/18 21:06; Admin Dose 5 MG; Start 08/21/18 at 21:49 Ascorbic Acid (Vitamin C) 500 mg TID NGT Last administered on 08/25/18 21:06; Admin Dose 500 MG; Start 08/21/18 at 21:49 Atorvastatin Calcium (Lipitor) 40 mg HS PO Last administered on 08/25/18 21:07; Admin Dose 40 MG; Start 08/21/18 at 21:51 Carvedilol (Coreg) 12.5 mg BID PO Last administered on 08/25/18 21:07; Admin Dose 12.5 MG; Start 08/21/18 at 21:51 Docusate Sodium (Colace) 250 mg BID PO Last administered on 08/24/18 21:19; Admin Dose 250 MG; Start 08/21/18 at 21:51 Amlodipine Besylate (Norvasc) 5 mg DAILY PO Last administered on 08/25/18 09:19; Admin Dose 5 MG; Start 08/22/18 at 09:00 Magnesium Hydroxide (Milk Of Mag) 30 ml BID PRN PO CONSTIPATION Last ad ministered on 08/22/18 17:19; Admin Dose 30 ML; Start 08/22/18 at 11:00 Lactulose (Enulose) 20 gm DAILY PRN PO CONSTIPATION Last administered on 08/22/18 12:44; Admin Dose 20 GM; Start 08/22/18 at 11:00 Bisacodyl (Dulcolax Supp) 10 mg DAILY PRN OR CONSTIPATION; Start 08/22/18 at 11:00 Ciprofloxacin (Cipro) 500 mg BID@,18 NGT Last administered on 08/25/18 17:29; Admin Dose 500 MG; Start 08/23/18 at 06:36 Morphine Sulfate (morphine) 1 mg Q6H PRN IV SEVERE PAIN LEVEL 7-10; Start 08/23/18 at 07:00 Hydromorphone HCl (Dilaudid) 1 mg Q4H PRN IV SEVERE PAIN LEVEL 7-10 Last administered on 08/24/18 19:33; Admin Dose 1 MG; Start 08/23/18 at 14:30 Nitroglycerin (Nitroglycerin (Sl Tab) 0.4 Mg) 1 tab Q5M PRN SL ANGINA; Start 08/24/18 at 11:30 Ferric Sodium Gluconate Complex 125 mg/Sodium Chloride 100 ml @ 100 mls/hr DAILY@1300 IVPB Last administered on 08/25/18at 12:45; Admin Dose 100 MLS/HR; Start 08/24/18 at 13:00; Stop 08/26/18 at 13:59 Gabapentin (Neurontin) 100 mg TID PO Last administered on 08/25/18at 21:06; Admin Dose 100 MG; Start 08/25/18 at 13:00 Polyethylene Glycol (Miralax) 17 gm TID PRN PO CONSTIPATION; Start 08/25/18 at 12:00 NERIS BROTHERS MD August 25, 2018 22:57
[2018-08-26] MEDS: OXYCODONE/ACETAMINOPHEN (10/325) TAB PO PRN ×3 (01:00→22:10)
[2018-08-26] MEDS: IPRATROPIUM (NEB) 0.5 MG/2.5 ML AMP HHN SCH ×4 (01:37→19:55)
[2018-08-26] MEDS: LEVALBUTEROL (NEB) 1.25 MG/0.5 ML AMP HHN SCH ×4 (01:37→19:55)
[2018-08-26] MEDS: ACCU-CHEK XX SCH (02:00)
[2018-08-26 02:40] VITALS: BP 128/58; PULSE 62; RESP 18
[2018-08-26] MEDS: CIPROFLOXACIN 500 MG TAB NGT SCH ×2 (06:28→17:51)
[2018-08-26 07:30] VITALS: BP 120/67; PULSE 60; RESP 20
[2018-08-26] MEDS: INSULIN ASPART [NOVOLOG] 3 ML PEN SC SCH ×7 (07:52→22:00)
[2018-08-26] MEDS: AMLODIPINE 5 MG TAB PO SCH (09:00)
[2018-08-26] MEDS: DOCUSATE SODIUM 250 MG CAP PO SCH ×2 (09:00→22:00)
[2018-08-26] MEDS: APIXABAN 5 MG TABLET PO SCH ×2 (09:33→22:03)
[2018-08-26] MEDS: FAMOTIDINE 20 MG TAB PO SCH (09:33)
[2018-08-26] MEDS: FUROSEMIDE 40 MG TAB PO SCH (09:34)
[2018-08-26] MEDS: CLOPIDOGREL 75 MG TAB NGT SCH (09:34)
[2018-08-26] MEDS: ASCORBIC ACID 500 MG TAB NGT SCH ×3 (09:35→22:03)
[2018-08-26] MEDS: GABAPENTIN 100 MG CAP PO SCH ×3 (09:37→22:03)
--- NOTE | 2018-08-26 12:02 | CONS ---
Assessment/Plan Assessment/Plan Assessment/Plan (Daily) 1. acute kidney injury vs possible baseline CKD II due to ishcemic ATN + Hemodynamics 2. 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 H/o HTN 4. H/o HL 5. H/o DM II 6. H/o CAD with previous stent placement 7. Anemia of chronic disease with iron deficiency Plan: BUN/Cr bumped to 48/2.0- no labs today if BUN/.Cr continue to rise then we will consider more diuresis continue Lasix 40mg po daily amlodipine 5 mg po daily, Eliquis 5mg pO BID will follow up Consultation Date/Type/Reason Admit Date/Time August 21, 2018 at 18:31 Initial Consult Date Type of Consult NEPHROLOGY Requesting Provider: NERIS BROTHERS MD Date/Time of Note DATE: 08/26/18 TIME: 12:02 24 HR Interval Summary Free Text/Dictation no labs today, BUn/Cr 48/2.0 Yesterday, Bp stable Exam/Review of Systems Exam Vitals Vital Signs Date Temp Pulse Resp B/P (MAP) Pulse Ox O2 O2 Flow FiO2 Time Delivery Rate 08/26/18 75 19 99 Nasal 2.0 09:03 Cannula 08/26/18 97.9 120/67 07:30 (84) 08/25/18 21 19:51 Intake and Output 08/25/18 08/25/18 08/26/18 1515:00 23:00 07:00 IntakeIntake Total 1200 ml 240 ml OutputOutput Total 200 ml 802 ml 450 ml BalanceBalance -200 ml 398 ml -210 ml Exam Constitutional: alert, awake ENMT: nl external ears & nose Neck: non-tender Cardiovascular: nl pulses, other (s1s2) Gastrointestinal: soft, non-tender Musculoskeletal: muscle weakness Extremities: normal pulses 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: other (alert/responsive) Skin: rash or lesions Results Result Diagram: 08/25/1863008/25/18630 Results 24hrs Laboratory Tests Test 08/25/18 17:24 08/25/18 21:04 08/25/18 22:33 08/26/18 07:48 Bedside Glucose 206 157 158 236 H Medications Medication Current Medications Ondansetron HCl (Zofran Inj) 4 mg Q6H PRN IV NAUSEA AND/OR VOMITING; Start 08/21/18 at 21:08 Albumin Human 250 ml @ 500 mls/hr PRN PRN IV CVP< 8, OR SBP<90; Start 08/21/18 at 21:08 Clopidogrel Bisulfate (plaVIX) 75 mg DAILY NGT Last administered on 08/26/18 09:34; Admin Dose 75 MG; Start 08/21/18 at 21:08 Levalbuterol (Xopenex Neb) 1.25 mg Q6H RESP THERAPY HHN Last administered on 08/26/18 09:03; Admin Dose 1.25 MG; Start 08/21/18 at 21:08 Ipratropium [place] (Atrovent 0.02% (Neb)) 0.5 mg Q6H RESP THERAPY HHN Last administered on 08/26/18 09:03; Admin Dose 0.5 MG; Start 08/21/18 at 21:08 Diagnostic Test (Pha) (Accu-Chek) 1 ea 02 XX Last administered on 08/23/18at 02:00; Admin Dose 1 EA; Start 08/21/18 at 21:08 Miscellaneous Information 1 ea NOTE XX ; Start 08/21/18 at 21:08 Glucose (Glutose) 15 gm Q15M PRN PO DECREASED GLUCOSE; Start 08/21/18 at 21:08 Glucose (Glutose) 22.5 gm Q15M PRN PO DECREASED GLUCOSE; Start 08/21/18 at 21:08 Dextrose (D50w Syringe) 25 ml Q15M PRN IV DECREASED GLUCOSE; Start 08/21/18 at 21:08 Dextrose (D50w Syringe) 50 ml Q15M PRN IV DECREASED GLUCOSE; Start 08/21/18 at 21:08 Glucagon (Glucagen) 1 mg Q15M PRN IM DECREASED GLUCOSE; Start 08/21/18 at 21:08 Glucose (Glutose) 15 gm Q15M PRN BUCCAL DECREASED GLUCOSE; Start 08/21/18 at 21:08 Furosemide (Lasix) 40 mg DAILY PO Last administered on 08/26/18 09:34; Admin Dose 40 MG; Start 08/21/18 at 21:08 Insulin Glargine (Lantus) 28 units 2300 SC Last administered on 08/25/18 22:35; Admin Dose 28 UNITS; Start 08/21/18 at 21:08 Famotidine (Pepcid) 20 mg DAILY PO Last administered on 08/26/18 09:33; Admin Dose 20 MG; Start 08/21/18 at 21:08 Insulin Aspart (Novolog Insulin Pen) 10 unit WITH MEALS SC Last administered on 08/26/18 07:52; Admin Dose 10 UNIT; Start 08/21/18 at 21:08 Insulin Aspart (Novolog Insulin Pen) NOVOLOG *MODERATE* ALGORITHM WITH MEALS BEDTIME SC Last administered on 08/26/18 07:53; Admin Dose 6 UNIT; Start 08/21/18 at 21:08 Oxycodone/ Acetaminophen (Endocet (10/ 325)) 1 tab Q4H PRN PO MODERATE PAIN LEVEL 4-6 Last administered on 08/26/18 07:50; Admin Dose 1 TAB; Start 08/21/18 at 21:08 Hydralazine HCl (Apresoline) 10 mg Q4H PRN IV SBP >150; Start 08/21/18 at 21:30 Acetaminophen (Tylenol Tab) 650 mg Q3H PRN PO ELEVATED TEMPERATURE; Start 08/21/18 at 22:00 Apixaban (Eliquis) 5 mg BID PO Last administered on 08/26/18 09:33; Admin Dose 5 MG; Start 08/21/18 at 21:49 Ascorbic Acid (Vitamin C) 500 mg TID NGT Last administered on 08/26/18 09:35; Admin Dose 500 MG; Start 08/21/18 at 21:49 Atorvastatin Calcium (Lipitor) 40 mg HS PO Last administered on 08/25/18 21:07; Admin Dose 40 MG; Start 08/21/18 at 21:51 Carvedilol (Coreg) 12.5 mg BID PO Last administered on 08/26/18 09:34; Admin Dose 12.5 MG; Start 08/21/18 at 21:51 Docusate Sodium (Colace) 250 mg BID PO Last administered on 08/24/18 21:19; Admin Dose 250 MG; Start 08/21/18 at 21:51 Amlodipine Besylate (Norvasc) 5 mg DAILY PO Last administered on 08/25/18 09:19; Admin Dose 5 MG; Start 08/22/18 at 09:00 Magnesium Hydroxide (Milk Of Mag) 30 ml BID PRN PO CONSTIPATION Last administered on 08/22/18 17:19; Admin Dose 30 ML; Start 08/22/18 at 11:00 Lactulose (Enulose) 20 gm DAILY PRN PO CONSTIPATION Last administered on 08/22/18at 12:44; Admin Dose 20 GM; Start 08/22/18 at 11:00 Bisacodyl (Dulcolax Supp) 10 mg DAILY PRN [place] CONSTIPATION; Start 08/22/18 at 11:00 Ciprofloxacin (Cipro) 500 mg BID@06,18 NGT Last administered on 08/26/18 06:28; Admin Dose 500 MG; Start 08/23/18 at 06:36 Morphine Sulfate (morphine) 1 mg Q6H PRN IV SEVERE PAIN LEVEL 7-10; Start 08/23/18 at 07:00 Hydromorphone HCl (Dilaudid) 1 mg Q4H PRN IV SEVERE PAIN LEVEL 7-10 Last administered on 08/24/18 19:33; Admin Dose 1 MG; Start 08/23/18 at 14:30 Nitroglycerin (Nitroglycerin (Sl Tab) 0.4 Mg) 1 tab Q5M PRN SL ANGINA; Start 08/24/18 at 11:30 Ferric Sodium Gluconate Complex 125 mg/Sodium Chloride 100 ml @ 100 mls/hr DAILY@1300 IVPB Last administered on 08/25/18at 12:45; Admin Dose 100 MLS/HR; Start 08/24/18 at 13:00; Stop 08/26/18 at 13:59 Gabapentin (Neurontin) 100 mg TID PO Last administered on 08/26/18 09:37; Admin Dose 100 MG; Start 08/25/18 at 13:00 Polyethylene Glycol (Miralax) 17 gm TID PRN PO CONSTIPATION; Start 08/25/18 at 12:00 DARRYL SOOD MD August 26, 2018 12:02
--- NOTE | 2018-08-26 12:16 | PN ---
Date/Time of Note Date/Time of Note DATE: 08/26/18 TIME: 12:12 Assessment/Plan VTE Prophylaxis Risk score (from Nsg)>0 risk: 10 SCD applied (from Ns): No SCD contraindicated: other (yes.) Pharmacological prophylaxis: apixaban Lines/Catheters IV [facility]from [facility] [place] line still needed: No Urinary Cath still in place: No Assessment/Plan Assessment/Plan 1. Ischemic heart disease angina three-vessel coronary a. disease.s/p CABG x5 08/13/18: WINN to LAD, SVG to ramus sequence to obtuse marginal artery, SVG to PDA, SVG to left ventricular extension branch. Difficult case per Dr. Howell with poor targets.Vein harvesting and epiaortic scanning of the ascending aorta.CAD: s/p multiple prior PCIs. Cath 08/11/18 with multivessel disease. Now with elevated level of the troponin the second 1 is 1.1. We will get q. 6 hours x 2. The patient denies having the chest pain. 2. Hypertension with congestive heart failure diastolic- improved. 3. Diabetes mellitus type 2 blood sugar better controlled. Continue titration. 4. History of cholecystitis and pancreatitis 5. Acute on chronic kidney disease with baseline creatinine being 1.6 up to 3.5 came down to 2.05 yesterday and 1.95 today. Improved after hydration,now mildly dehydrated; 6. Dyslipidemia better controlled 7. History of nasal bleeding recurrent- stable. 8. Morbid obesity with snoring and apnea and daytime sleepiness 9. BPH with nocturia 10. Low back pain with radiculopathy 11. 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 Status post cataract ectomy 13. Diabetic nephropathy retinopathy and angiopathy and neuropathy. 14. Constipation- improved. 15. Grief reaction after the of her 16. Gastroesophageal reflux disease 17. Deep venous thrombosis of the left saphenous vein, 2-3 months ago;was on Eliquis 5 mg twice daily, stopped: since 08/11/2018. 18. Gastritis 19. COPD. Quit smoking 10years ago. 02sat now 95% with persistent cough. 20. History of nephrolithiasis. 21. Drop of hematocrit; s/p 2 units of prbc tx. stable. 22. Drop of albumone and total protein and mild elevation of lft's. 23.Myopathy 24.Lethargy 25.Acute on chronic kidney disease, improving 25.Unstable gate Result Diagram: 08/25/18 0631 08/25/18 0631 Results 24hrs Laboratory Tests Test 08/25/18 17:24 08/25/18 21:04 08/25/18 22:33 08/26/18 07:48 Bedside Glucose 206 157 158 236 H Subjective 24 Hr Interval Summary Free Text/Dictation sob; chills on and off. Constitutional: improved, chills, poor po; No no complaints, No diaphoresis, No disoriented, No febrile, No requiring IVF, No requiring O2, No other Eyes: No no complaints, No pain, No discharge, No redness, No visual change, No other ENT: congestion, dysphagia; No no complaints, No bleeding, No pain, No discharge, No sore throat, No other Respiratory: cough; No no complaints, No pain, No pleuritic pain, No shortness of breath, No sputum, No wheezing, No other Cardiovascular: edema, lightheadedness, orthopenea, palpitations, paroxysmal no cturnal dyspnea; No no complaints, No chest pain, No other Gastrointestinal: constipation, decreased appetite, flatus; No no complaints, No pain, No blood, No diarrhea, No nausea, No passing stool, No vomiting, No other Genitourinary: No no complaints, No bleeding, No dysuria, No discharge, No flank pain, No hematuria, No other Musculoskeletal: back pain, bone/joint pain, neck pain; No no complaints, No restricted range of motion, No swelling, No other Skin: pruritis, rash; No no complaints, No bruising, No erythema, No laceration, No skin lesions, No other Neurologic: dizziness; No no complaints, No confusion, No focal-weakness, No headache, No syncope, No seizure, No other Endocrine: polyuria; No no complaints, No polydypsia, No dry skin, No temp intolerance, No other Lymphatic: No no complaints, No adenopathy, No tender nodes, No lymphadema, No other Psychological: anxiety, confusion; No no complaints, No nl mood/affect, No depression, No suicidal, No other Exam/Review of Systems Exam Vitals Vital Signs Date Temp Pulse Resp B/P (MAP) Pulse Ox O2 O2 Flow FiO2 Time Delivery Rate 08/26/18 75 19 99 Nasal 2.0 09:03 Cannula 08/26/18 97.9 120/67 07:30 (84) 08/25/18 21 19:51 Intake and Output 08/25/18 08/25/18 08/26/18 1515:00 23:00 07:00 IntakeIntake Total 1200 ml 240 ml OutputOutput Total 200 ml 802 ml 450 ml BalanceBalance -200 ml 398 ml -210 ml Constitutional: alert, oriented, well developed, distress, frail, obese; No non-verbal, No other Psych: anxiety, depression; No no complaints, No nl mood/affect, No confusion, No suicidal, No other Head: normocephalic, atraumatic; No lacerations, No hematomas, No other Eyes: EOMI, nl lids, PERRL; No nl conjunctiva, No nl sclera, No icteric, No fundi, disc, No other ENMT: No nl external ears & nose, No nl lips & teeth, No nl nasal mucosa & septum, No mucosa pink and moist, No intubated, No tympanic membranes, No other Neck: jvd, bruits, thyromegaly; No supple, No non-tender, No masses, No nuchal rigidity, No other Respiratory: normal air movement, diminished breath sounds; No clear to auscultation, No congested cough, No crackles/rales, No intercostal retraction, No labored breathing, No respirations, No tactile fremitus, No wheezing, No other Cardiovascular: nl pulses, bruits, edema, systolic murmur Gastrointestinal: soft, bowel sounds; No nl liver, spleen, No non-tender, No ascites, No distended, No firm, No hepatomegaly, No mass, No rebound or guarding, No splenomegaly, No surgical scars, No tender, No other Genitourinary - Male: nl penis, nl scrotum Extremities: edema 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: [employer] SUPER[employer]OR II-XII intact; No nl mental status, No nl speech, No nl strength, No confused, No DTR's symmetric, No focal weakness, No lethargic, No numbness, No reflexes, No unresponsive, No other Skin: rash or lesions; No nl turgor, No diaphoresis, No ecchymosis, No laceration, No puncture, No other Results Results 24hrs Laboratory Tests Test 08/25/18 17:24 08/25/18 21:04 08/25/18 22:33 08/26/18 07:48 Bedside Glucose 206 157 158 236 H Medications Medication Current Medications Ondansetron HCl (Zofran Inj) 4 mg Q6H PRN IV NAUSEA AND/OR VOMITING; Start 08/21/18 at 21:08 Albumin Human 250 ml @ 500 mls/hr PRN PRN IV CVP< 8, OR SBP<90; Start 08/21/18 at 21:08 Clopidogrel Bisulfate (plaVIX) 75 mg DAILY NGT Last administered on 08/26/18at 09:34; Admin Dose 75 MG; Start 08/21/18 at 21:08 Levalbuterol (Xopenex Neb) 1.25 mg Q6H RESP THERAPY HHN Last administered on 08/26/18at 09:03; Admin Dose 1.25 MG; Start 08/21/18 at 21:08 Ipratropium [place] (Atrovent 0.02% (Neb)) 0.5 mg Q6H RESP THERAPY HHN Last administered on 08/26/18at 09:03; Admin Dose 0.5 MG; Start 08/21/18 at 21:08 Diagnostic Test (Pha) (Accu-Chek) 1 ea 02 XX Last administered on 08/23/18at 02:00; Admin Dose 1 EA; Start 08/21/18 at 21:08 Miscellaneous Information 1 ea NOTE XX ; Start 08/21/18 at 21:08 Glucose (Glutose) 15 gm Q15M PRN PO DECREASED GLUCOSE; Start 08/21/18 at 21:08 Glucose (Glutose) 22.5 gm Q15M PRN PO DECREASED GLUCOSE; Start 08/21/18 at 21:08 Dextrose (D50w Syringe) 25 ml Q15M PRN IV DECREASED GLUCOSE; Start 08/21/18 at 21:08 Dextrose (D50w Syringe) 50 ml Q15M PRN IV DECREASED GLUCOSE; Start 08/21/18 at 21:08 Glucagon (Glucagen) 1 mg Q15M PRN IM DECREASED GLUCOSE; Start 08/21/18 at 21:08 Glucose (Glutose) 15 gm Q15M PRN BUCCAL DECREASED GLUCOSE; Start 08/21/18 at 21:08 Furosemide (Lasix) 40 mg DAILY PO Last administered on 08/26/18 09:34; Admin Dose 40 MG; Start 08/21/18 at 21:08 Insulin Glargine (Lantus) 28 units 2300 SC Last administered on 08/25/18 22:35; Admin Dose 28 UNITS; Start 08/21/18 at 21:08 Famotidine (Pepcid) 20 mg DAILY PO Last administered on 08/26/18 09:33; Admin Dose 20 MG; Start 08/21/18 at 21:08 Insulin Aspart (Novolog Insulin Pen) 10 unit WITH MEALS SC Last administered on 08/26/18 07:52; Admin Dose 10 UNIT; Start 08/21/18 at 21:08 Insulin Aspart (Novolog Insulin Pen) NOVOLOG *MODERATE* ALGORITHM WITH MEALS BEDTIME SC Last administered on 08/26/18 07:53; Admin Dose 6 UNIT; Start 08/21/18 at 21:08 Oxycodone/ Acetaminophen (Endocet (10/ 325)) 1 tab Q4H PRN PO MODERATE PAIN LEVEL 4-6 Last administered on 08/26/18 07:50; Admin Dose 1 TAB; Start 08/21/18 at 21:08 Hydralazine HCl (Apresoline) 10 mg Q4H PRN IV SBP >150; Start 08/21/18 at 21:30 Acetaminophen (Tylenol Tab) 650 mg Q3H PRN PO ELEVATED TEMPERATURE; Start 08/21/18 at 22:00 Apixaban (Eliquis) 5 mg BID PO Last administered on 08/26/18 09:33; Admin Dose 5 MG; Start 08/21/18 at 21:49 Ascorbic Acid (Vitamin C) 500 mg TID NGT Last administered on 08/26/18 09:35; Admin Dose 500 MG; Start 08/21/18 at 21:49 Atorvastatin Calcium (Lipitor) 40 mg HS PO Last administered on 08/25/18 21:07; Admin Dose 40 MG; Start 08/21/18 at 21:51 Carvedilol (Coreg) 12.5 mg BID PO Last administered on 08/26/18 09:34; Admin Dose 12.5 MG; Start 08/21/18 at 21:51 Docusate Sodium (Colace) 250 mg BID PO Last administered on 08/24/18 21:19; Admin Dose 250 MG; Start 08/21/18 at 21:51 Amlodipine Besylate (Norvasc) 5 mg DAILY PO Last administered on 08/25/18 09:19; Admin Dose 5 MG; Start 08/22/18 at 09:00 Magnesium Hydroxide (Milk Of Mag) 30 ml BID PRN PO CONSTIPATION Last administered on 08/22/18 17:19; Admin Dose 30 ML; Start 08/22/18 at 11:00 Lactulose (Enulose) 20 gm DAILY PRN PO CONSTIPATION Last administered on 08/22/18 12:44; Admin Dose 20 GM; Start 08/22/18 at 11:00 Bisacodyl (Dulcolax Supp) 10 mg DAILY PRN [place] CONSTIPATION; Start 08/22/18 at 11:00 Ciprofloxacin (Cipro) 500 mg BID@06,18 NGT Last administered on 08/26/18 06:28; Admin Dose 500 MG; Start 08/23/18 at 06:36 Morphine Sulfate (morphine) 1 mg Q6H PRN IV SEVERE PAIN LEVEL 7-10; Start 08/23/18 at 07:00 Hydromorphone HCl (Dilaudid) 1 mg Q4H PRN IV SEVERE PAIN LEVEL 7-10 Last admi nistered on 08/24/18 19:33; Admin Dose 1 MG; Start 08/23/18 at 14:30 Nitroglycerin (Nitroglycerin (Sl Tab) 0.4 Mg) 1 tab Q5M PRN SL ANGINA; Start 08/24/18 at 11:30 Ferric Sodium Gluconate Complex 125 mg/Sodium Chloride 100 ml @ 100 mls/hr DAILY@1300 IVPB Last administered on 08/25/18at 12:45; Admin Dose 100 MLS/HR; Start 08/24/18 at 13:00; Stop 08/26/18 at 13:59 Gabapentin (Neurontin) 100 mg TID PO Last administered on 08/26/18 09:37; Admin Dose 100 MG; Start 08/25/18 at 13:00 Polyethylene Glycol (Miralax) 17 gm TID PRN PO CONSTIPATION; Start 08/25/18 at 12:00 NERIS BROTHERS MD August 26, 2018 12:16
[2018-08-26] MEDS: SOD FERRIC GLUC COMPLX 125 MG in SOD CHLORIDE 0.9% 100 ML IVPB SCH (12:46)
--- NOTE | 2018-08-26 12:57 | PN ---
Date/Time of Note Date/Time of Note DATE: 08/26/18 TIME: 12:56 Subjective Patient c./o upset stomach Objective Vital Signs Date Temp Pulse Resp B/P (MAP) Pulse Ox O2 O2 Flow FiO2 Time Delivery Rate 08/26/18 75 19 99 Nasal 2.0 09:03 Cannula 08/26/18 97.9 120/67 07:30 (84) 08/25/18 21 19:51 Intake and Output 08/25/18 08/25/18 08/26/18 1515:00 23:00 07:00 IntakeIntake Total 1200 ml 240 ml OutputOutput Total 200 ml 802 ml 450 ml BalanceBalance -200 ml 398 ml -210 ml Exam mod 20 feet ambulation with PT Results/Medications Result Diagram: 08/25/1831 08/25/18630 Results 24 hrs Laboratory Tests Test 08/25/18 17:24 08/25/18 21:04 08/25/18 22:33 08/26/18 07:48 Bedside Glucose 206 157 158 236 H Test 08/26/18 12:11 Bedside Glucose 206 Medications Current Medications Ondansetron HCl (Zofran Inj) 4 mg Q6H PRN IV NAUSEA AND/OR VOMITING; Start 08/21/18 at 21:08 Albumin Human 250 ml @ 500 mls/hr PRN PRN IV CVP< 8, OR SBP<90; Start 08/21/18 at 21:08 Clopidogrel Bisulfate (plaVIX) 75 mg DAILY NGT Last administered on 08/26/18at 09:34; Admin Dose 75 MG; Start 08/21/18 at 21:08 Levalbuterol (Xopenex Neb) 1.25 mg Q6H RESP THERAPY HHN Last administered on 08/26/18 09:03; Admin Dose 1.25 MG; Start 08/21/18 at 21:08 Ipratropium [place] (Atrovent 0.02% (Neb)) 0.5 mg Q6H RESP THERAPY HHN Last administered on 08/26/18 09:03; Admin Dose 0.5 MG; Start 08/21/18 at 21:08 Diagnostic Test (Pha) (Accu-Chek) 1 ea 02 XX Last administered on 08/23/18at 02:00; Admin Dose 1 EA; Start 08/21/18 at 21:08 Miscellaneous Information 1 ea NOTE XX ; Start 08/21/18 at 21:08 Glucose (Glutose) 15 gm Q15M PRN PO DECREASED GLUCOSE; Start 08/21/18 at 21:08 Glucose (Glutose) 22.5 gm Q15M PRN PO DECREASED GLUCOSE; Start 08/21/18 at 21:08 Dextrose (D50w Syringe) 25 ml Q15M PRN IV DECREASED GLUCOSE; Start 08/21/18 at 21:08 Dextrose (D50w Syringe) 50 ml Q15M PRN IV DECREASED GLUCOSE; Start 08/21/18 at 21:08 Glucagon (Glucagen) 1 mg Q15M PRN IM DECREASED GLUCOSE; Start 08/21/18 at 21:08 Glucose (Glutose) 15 gm Q15M PRN BUCCAL DECREASED GLUCOSE; Start 08/21/18 at 21:08 Furosemide (Lasix) 40 mg DAILY PO Last administered on 08/26/18 09:34; Admin Dose 40 MG; Start 08/21/18 at 21:08 Insulin Glargine (Lantus) 28 units 2300 SC Last administered on 08/25/18 22:35; Admin Dose 28 UNITS; Start 08/21/18 at 21:08 Famotidine (Pepcid) 20 mg DAILY PO Last administered on 08/26/18 09:33; Admin Dose 20 MG; Start 08/21/18 at 21:08 Insulin Aspart (Novolog Insulin Pen) 10 unit WITH MEALS SC Last administered on 08/26/18at 12:15; Admin Dose 10 UNIT; Start 08/21/18 at 21:08 Insulin Aspart (Novolog Insulin Pen) NOVOLOG *MODERATE* ALGORITHM WITH MEALS BEDTIME SC Last administered on 08/26/18 12:16; Admin Dose 4 UNIT; Start 08/21/18 at 21:08 Oxycodone/ Acetaminophen (Endocet (10/ 325)) 1 tab Q4H PRN PO MODERATE PAIN LEVEL 4-6 Last administered on 08/26/18at 07:50; Admin Dose 1 TAB; Start 08/21/18 at 21:08 Hydralazine HCl (Apresoline) 10 mg Q4H PRN IV SBP >150; Start 08/21/18 at 21:30 Acetaminophen (Tylenol Tab) 650 mg Q3H PRN PO ELEVATED TEMPERATURE; Start 08/21/18 at 22:00 Apixaban (Eliquis) 5 mg BID PO Last administered on 08/26/18 09:33; Admin Dose 5 MG; Start 08/21/18 at 21:49 Ascorbic Acid (Vitamin C) 500 mg TID NGT Last administered on 08/26/18 12:44; Admin Dose 500 MG; Start 08/21/18 at 21:49 Atorvastatin Calcium (Lipitor) 40 mg HS PO Last administered on 08/25/18 21:07; Admin Dose 40 MG; Start 08/21/18 at 21:51 Carvedilol (Coreg) 12.5 mg BID PO Last administered on 08/26/18 09:34; Admin Dose 12.5 MG; Start 08/21/18 at 21:51 Docusate Sodium (Colace) 250 mg BID PO Last administered on 08/24/18 21:19; Admin Dose 250 MG; Start 08/21/18 at 21:51 Amlodipine Besylate (Norvasc) 5 mg DAILY PO Last administered on 08/25/18 09:19; Admin Dose 5 MG; Start 08/22/18 at 09:00 Magnesium Hydroxide (Milk Of Mag) 30 ml BID PRN PO CONSTIPATION Last administered on 08/22/18 17:19; Admin Dose 30 ML; Start 08/22/18 at 11:00 Lactulose (Enulose) 20 gm DAILY PRN PO CONSTIPATION Last administered on 08/22/18 12:44; Admin Dose 20 GM; Start 08/22/18 at 11:00 Bisacodyl (Dulcolax Supp) 10 mg DAILY PRN [place] CONSTIPATION; Start 08/22/18 at 11:00 Ciprofloxacin (Cipro) 500 mg BID@06,18 NGT Last administered on 08/26/18 06:28; Admin Dose 500 MG; Start 08/23/18 at 06:36 Morphine Sulfate (morphine) 1 mg Q6H PRN IV SEVERE PAIN LEVEL 7-10; Start 08/23/18 at 07:00 Hydromorphone HCl (Dilaudid) 1 mg Q4H PRN IV SEVERE PAIN LEVEL 7-10 Last administered on 08/24/18 19:33; Admin Dose 1 MG; Start 08/23/18 at 14:30 Nitroglycerin (Nitroglycerin (Sl Tab) 0.4 Mg) 1 tab Q5M PRN SL ANGINA; Start 08/24/18 at 11:30 Ferric Sodium Gluconate Complex 125 mg/Sodium Chloride 100 ml @ 100 mls/hr DAILY@1300 IVPB Last administered on 08/26/18at 12:46; Admin Dose 100 MLS/HR; Start 08/24/18 at 13:00; Stop 08/26/18 at 13:59 Gabapentin (Neurontin) 100 mg TID PO Last administered on 08/26/18at 12:44; Admin Dose 100 MG; Start 08/25/18 at 13:00 Polyethylene Glycol (Miralax) 17 gm TID PRN PO CONSTIPATION; Start 08/25/18 at 12:00 Assessment/Plan Additional Assessment/Plan rehab- Critical illness myopathy; Lumbar radiculopathy with right lower e xtremity symptoms. Continue rehab program, improving with treatment plan Coronary artery disease status post 5-vessel CABG. Status post acute respiratory failure. Acute on chronic kidney disease. Oropharyngeal dysphagia on mechanical soft diet. Chronic obstructive pulmonary disease. Diabetes mellitus type 2. Hypertension. Hyperlipidemia. Osteoarthritis affecting multiple joints, including bilateral knees. Diabetic retinopathy. Anemia of chronic disease. Benign prostatic hypertrophy. YARIEL MARIE MD August 26, 2018 12:57
--- NOTE | 2018-08-26 13:34 | CONS ---
Assessment/Plan Assessment/Plan Hospital Course (Demo Recall) NSTEMI: residual trop elevation likely from CABG. Trend does not suggest ACS. No symptoms. Ankle pain: ?gout vs less likely fracture. Improving Acute on chronic diastolic CHF: ~euvolemic Acute on chronic renal failure: Cr baseline 1.6. Worse after CABG.Now ~2 Cardiogenic shock: Transient post op Acute respiratory failure: s/p extubation 08/16 Anemia: from operative blood loss. Required one unit. No active bleeding s/p CABG x5 08/13/18: WINN to LAD, SVG to ramus sequence to obtuse marginal artery, SVG to PDA, SVG to left ventricular extension branch. Difficult case per Dr. Howell with poor targets. CAD: s/p multiple prior PCIs. Cath 08/11/18 with multivessel disease. s/p CABG above Recent left femoral DVT: on Eliquis as outpt. DM HT HL -check ankle XRs -lasix 40mg PO daily -Eliquis 5mg BID -continue plavix -coreg 12.5mg BID -amlodipine 5mg -lipitor 40mg Consultation Date/Type/Reason Admit Date/Time August 21, 2018 at 18:31 Initial Consult Date Type of Consult Cardiology Requesting Provider: NERIS BROTHERS MD Date/Time of Note DATE: 08/26/18 TIME: 13:33 24 HR Interval Summary Free Text/Dictation Ankle pain improving and now able to walk on it for several feet. Otherwise no complaints Exam/Review of Systems Vital Signs Vitals Vital Signs Date Temp Pulse Resp B/P (MAP) Pulse Ox O2 O2 Flow FiO2 Time Delivery Rate 08/26/18 75 19 99 Nasal 2.0 09:03 Cannula 08/26/18 97.9 120/67 07:30 (84) 08/25/18 21 19:51 Intake and Output 08/25/18 08/25/18 08/26/18 1515:00 23:00 07:00 IntakeIntake Total 1200 ml 240 ml OutputOutput Total 200 ml 802 ml 450 ml BalanceBalance -200 ml 398 ml -210 ml Exam Constitutional: alert, oriented Psych: no complaints, nl mood/affect Head: normocephalic, atraumatic Neck: No jvd Respiratory: diminished breath sounds; No clear to auscultation Cardiovascular: regular rate and rhythm, edema (trace) Gastrointestinal: soft, non-tender; No distended 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: nl mental status, nl speech Labs Result Diagram: 08/25/1831 08/25/18 0631 Results 24hrs Laboratory Tests Test 08/25/18 17:24 08/25/18 21:04 08/25/18 22:33 08/26/18 07:48 Bedside Glucose 206 157 158 236 H Test 08/26/18 12:11 Bedside Glucose 206 Medications Medications Current Medications Ondansetron HCl (Zofran Inj) 4 mg Q6H PRN IV NAUSEA AND/OR VOMITING; Start 08/21/18 at 21:08 Albumin Human 250 ml @ 500 mls/hr PRN PRN IV CVP< 8, OR SBP<90; Start 08/21/18 at 21:08 Clopidogrel Bisulfate (plaVIX) 75 mg DAILY NGT Last administered on 08/26/18at 09:34; Admin Dose 75 MG; Start 08/21/18 at 21:08 Levalbuterol (Xopenex Neb) 1.25 mg Q6H RESP THERAPY HHN Last administered on 08/26/18at 09:03; Admin Dose 1.25 MG; Start 08/21/18 at 21:08 Ipratropium [place] (Atrovent 0.02% (Neb)) 0.5 mg Q6H RESP THERAPY HHN Last administered on 08/26/18at 09:03; Admin Dose 0.5 MG; Start 08/21/18 at 21:08 Diagnostic Test (Pha) (Accu-Chek) 1 ea 02 XX Last administered on 08/23/18at 02:00; Admin Dose 1 EA; Start 08/21/18 at 21:08 Miscellaneous Information 1 ea NOTE XX ; Start 08/21/18 at 21:08 Glucose (Glutose) 15 gm Q15M PRN PO DECREASED GLUCOSE; Start 08/21/18 at 21:08 Glucose (Glutose) 22.5 gm Q15M PRN PO DECREASED GLUCOSE; Start 08/21/18 at 21:08 Dextrose (D50w Syringe) 25 ml Q15M PRN IV DECREASED GLUCOSE; Start 08/21/18 at 21:08 Dextrose (D50w Syringe) 50 ml Q15M PRN IV DECREASED GLUCOSE; Start 08/21/18 at 21:08 Glucagon (Glucagen) 1 mg Q15M PRN IM DECREASED GLUCOSE; Start 08/21/18 at 21:08 Glucose (Glutose) 15 gm Q15M PRN BUCCAL DECREASED GLUCOSE; Start 08/21/18 at 21:08 Furosemide (Lasix) 40 mg DAILY PO Last administered on 08/26/18 09:34; Admin Dose 40 MG; Start 08/21/18 at 21:08 Insulin Glargine (Lantus) 28 units 2300 SC Last administered on 08/25/18 22:35; Admin Dose 28 UNITS; Start 08/21/18 at 21:08 Famotidine (Pepcid) 20 mg DAILY PO Last administered on 08/26/18 09:33; Admin Dose 20 MG; Start 08/21/18 at 21:08 Insulin Aspart (Novolog Insulin Pen) 10 unit WITH MEALS SC Last administered on 08/26/18 12:15; Admin Dose 10 UNIT; Start 08/21/18 at 21:08 Insulin Aspart (Novolog Insulin Pen) NOVOLOG *MODERATE* ALGORITHM WITH MEALS BEDTIME SC Last administered on 08/26/18 12:16; Admin Dose 4 UNIT; Start 08/21/18 at 21:08 Oxycodone/ Acetaminophen (Endocet (10/ 325)) 1 tab Q4H PRN PO MODERATE PAIN LEVEL 4-6 Last administered on 08/26/18 07:50; Admin Dose 1 TAB; Start 08/21/18 at 21:08 Hydralazine HCl (Apresoline) 10 mg Q4H PRN IV SBP >150; Start 08/21/18 at 21:30 Acetaminophen (Tylenol Tab) 650 mg Q3H PRN PO ELEVATED TEMPERATURE; Start 08/21/18 at 22:00 Apixaban (Eliquis) 5 mg BID PO Last administered on 08/26/18 09:33; Admin Dose 5 MG; Start 08/21/18 at 21:49 Ascorbic Acid (Vitamin C) 500 mg TID NGT Last administered on 08/26/18 12:44; Admin Dose 500 MG; Start 08/21/18 at 21:49 Atorvastatin Calcium (Lipitor) 40 mg HS PO Last administered on 08/25/18 21:07; Admin Dose 40 MG; Start 08/21/18 at 21:51 Carvedilol (Coreg) 12.5 mg BID PO Last administered on 08/26/18 09:34; Admin Dose 12.5 MG; Start 08/21/18 at 21:51 Docusate Sodium (Colace) 250 mg BID PO Last administered on 08/24/18 21:19; Admin Dose 250 MG; Start 08/21/18 at 21:51 Amlodipine Besylate (Norvasc) 5 mg DAILY PO Last administered on 08/25/18 09:19; Admin Dose 5 MG; Start 08/22/18 at 09:00 Magnesium Hydroxide (Milk Of Mag) 30 ml BID PRN PO CONSTIPATION Last administered on 08/22/18 17:19; Admin Dose 30 ML; Start 08/22/18 at 11:00 Lactulose (Enulose) 20 gm DAILY PRN PO CONSTIPATION Last administered on 08/22/18 12:44; Admin Dose 20 GM; Start 08/22/18 at 11:00 Bisacodyl (Dulcolax Supp) 10 mg DAILY PRN [place] CONSTIPATION; Start 08/22/18 at 11:00 Ciprofloxacin (Cipro) 500 mg BID@06,18 NGT Last administered on 08/26/18 06:28; Admin Dose 500 MG; Start 08/23/18 at 06:36 Morphine Sulfate (morphine) 1 mg Q6H PRN IV SEVERE PAIN LEVEL 7-10; Start 08/23/18 at 07:00 Hydromorphone HCl (Dilaudid) 1 mg Q4H PRN IV SEVERE PAIN LEVEL 7-10 Last administered on 08/24/18 19:33; Admin Dose 1 MG; Start 08/23/18 at 14:30 Nitroglycerin (Nitroglycerin (Sl Tab) 0.4 Mg) 1 tab Q5M PRN SL ANGINA; Start 08/24/18 at 11:30 Ferric Sodium Gluconate Complex 125 mg/Sodium Chloride 100 ml @ 100 mls/hr DAILY@1300 IVPB Last administered on 08/26/18 12:46; Admin Dose 100 MLS/HR; Start 08/24/18 at 13:00; Stop 08/26/18 at 13:59 Gabapentin (Neurontin) 100 mg TID PO Last administered on 08/26/18 12:44; Admin Dose 100 MG; Start 08/25/18 at 13:00 Polyethylene Glycol (Miralax) 17 gm TID PRN PO CONSTIPATION; Start 08/25/18 at 12:00 ALONDRA GILBERT August 26, 2018 13:34
[2018-08-26 14:00] VITALS: BP 130/64; PULSE 61; RESP 20
--- NOTE | 2018-08-26 16:03 | RADRPT ---
Vent Rate: 58 bpm RR Interval: 1032 msec FL Interval: 270 msec QRS Duration: 94 msec QT Interval: 458 msec QTC Interval: 451 msec P-R-T [place]: -46 - -13 - 95 degrees Sinus or ectopic atrial rhythm...P axis (-45,135) Prolonged FL interval...FL >220, V-rate 50- 90 Low voltage, extremity and precordial leads...extremity<0.5mV, precordial<1.0mV Probable anteroseptal infarct, old...Q >30mS & abn ST-T, V1-V2 Nonspecific T abnormalities, lateral leads...T <-0.10mV, I aVL V5 V6 Electronically Signed By: Hernesto Boateng
[2018-08-26 20:14] VITALS: BP 127/63; PULSE 64; RESP 18
[2018-08-26] MEDS: ATORVASTATIN 40 MG TAB PO SCH (22:03)
[2018-08-26] MEDS: INSULIN GLARGINE [LANTus] (100 UNITS/ML) SYG SC SCH (22:11)
[2018-08-27] MEDS: LEVALBUTEROL (NEB) 1.25 MG/0.5 ML AMP HHN SCH ×4 (01:32→20:00)
[2018-08-27] MEDS: IPRATROPIUM (NEB) 0.5 MG/2.5 ML AMP HHN SCH ×4 (01:32→20:00)
[2018-08-27] MEDS: ACCU-CHEK XX SCH (02:00)
[2018-08-27 02:10] VITALS: BP 112/58; PULSE 59; RESP 18
[2018-08-27] MEDS: OXYCODONE/ACETAMINOPHEN (10/325) TAB PO PRN ×2 (03:33→22:04)
[2018-08-27] MEDS: CIPROFLOXACIN 500 MG TAB NGT SCH ×2 (06:50→18:00)
[2018-08-27 07:30] VITALS: BP 119/60; PULSE 62; RESP 20
[2018-08-27] MEDS: INSULIN ASPART [NOVOLOG] 3 ML PEN SC SCH ×7 (08:45→22:16)
[2018-08-27] MEDS: HYDROmorphONE 1 MG/ML SYG IV PRN ×3 (08:50→17:54)
[2018-08-27] MEDS: FAMOTIDINE 20 MG TAB PO SCH (08:50)
[2018-08-27] MEDS: GABAPENTIN 100 MG CAP PO SCH ×3 (08:50→22:02)
[2018-08-27] MEDS: CLOPIDOGREL 75 MG TAB NGT SCH (08:50)
[2018-08-27] MEDS: DOCUSATE SODIUM 250 MG CAP PO SCH ×2 (08:50→22:00)
[2018-08-27] MEDS: AMLODIPINE 5 MG TAB PO SCH (08:51)
[2018-08-27] MEDS: ASCORBIC ACID 500 MG TAB NGT SCH ×3 (08:51→22:02)
[2018-08-27] MEDS ORDERED: FUROSEMIDE 20 MG INJ IV STA (09:06)
--- NOTE | 2018-08-27 09:06 | CONS ---
Assessment/Plan Assessment/Plan Assessment/Plan (Daily) 1. acute kidney injury vs possible baseline CKD II due to ishcemic ATN + Hemodynamics 2. 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 H/o HTN 4. H/o HL 5. H/o DM II 6. H/o CAD with previous stent placement 7. Anemia of chronic disease with iron deficiency Plan: BUN/Cr bumped to 43/2.16- On lasix 40mg po daily, will give lasix 20mg iV x 1 dose ( extra dose) amlodipine 5 mg po daily, Eliquis 5mg pO BID will follow up Consultation Date/Type/Reason Admit Date/Time August 21, 2018 at 18:31 Initial Consult Date Type of Consult NEPHROLOGY Requesting Provider: NERIS BROTHERS MD Date/Time of Note DATE: 08/27/18 TIME: 09:06 Exam/Review of Systems Exam Vitals Vital Signs Date Temp Pulse Resp B/P (MAP) Pulse Ox O2 O2 Flow FiO2 Time Delivery Rate 08/27/18 97.5 62 20 119/60 98 Nasal 2.0 07:30 (79) Cannula 08/25/18 21 19:51 Intake and Output 08/26/18 08/26/18 08/27/18 1515:00 23:00 07:00 IntakeIntake Total 1070 ml 300 ml OutputOutput Total 460 ml 750 ml BalanceBalance 610 ml -450 ml Results Result Diagram: 08/27/18 0631 08/27/18 0631 Results 24hrs Laboratory Tests Test 08/26/18 12:11 08/26/18 17:35 08/26/18 22:08 08/27/18 06:31 Bedside Glucose 206 133 177 White Blood Count 8.5 Red Blood Count 2.90 L Hemoglobin 8.4 L Hematocrit 26.8 L Mean Corpuscular Volume 92.4 Mean Corpuscular 29.0 Hemoglobin Mean Corpuscular 31.3 L Hemoglobin Concent Red Cell Distribution 14.6 H Width Platelet Count 243 Mean Platelet Volume 11.7 H Immature Granulocytes % 0.500 H Neutrophils % 75.7 Lymphocytes % 11.8 L Monocytes % 9.4 Eosinophils % 2.2 Basophils % 0.4 Nucleated Red Blood 0.0 Cells % Immature Granulocytes # 0.040 H Neutrophils # 6.5 Lymphocytes # 1.0 Monocytes # 0.8 Eosinophils # 0.2 Basophils # 0.0 Nucleated Red Blood 0.0 Cells # Sodium Level 132 L Potassium Level 4.0 Chloride Level 93 L Carbon Dioxide Level 31 Anion Gap 8 Blood Urea Nitrogen 43 H Creatinine 2.16 H Est Glomerular Filtrat Rate mL/min Glucose Level 149 Calcium Level 8.4 Magnesium Level 2.4 Total Bilirubin 0.7 Direct Bilirubin 0.00 Indirect Bilirubin 0.7 Aspartate Amino 246 #H Transf (AST/SGOT) Alanine 235 H Aminotransferase (ALT/SG PT) Alkaline Phosphatase 300 #H Total Protein 6.3 Albumin 3.3 Globulin 3.00 Albumin/Globulin Ratio 1.10 Test 08/27/18 07:54 Bedside Glucose 152 Medications Medication Current Medications Ondansetron HCl (Zofran Inj) 4 mg Q6H PRN IV NAUSEA AND/OR VOMITING; Start 08/21/18 at 21:08 Albumin Human 250 ml @ 500 mls/hr PRN PRN IV CVP< 8, OR SBP<90; Start 08/21/18 at 21:08 Clopidogrel Bisulfate (plaVIX) 75 mg DAILY NGT Last administered on 08/27/18at 08:50; Admin Dose 75 MG; Start 08/21/18 at 21:08 Levalbuterol (Xopenex Neb) 1.25 mg Q6H RESP THERAPY HHN Last administered on 08/27/18at 01:32; Admin Dose 1.25 MG; Start 08/21/18 at 21:08 Ipratropium [place] (Atrovent 0.02% (Neb)) 0.5 mg Q6H RESP THERAPY HHN Last administered on 08/27/18at 01:32; Admin Dose 0.5 MG; Start 08/21/18 at 21:08 Diagnostic Test (Pha) (Accu-Chek) 1 ea 02 XX Last administered on 08/23/18at 02:00; Admin Dose 1 EA; Start 08/21/18 at 21:08 Miscellaneous Information 1 ea NOTE XX ; Start 08/21/18 at 21:08 Glucose (Glutose) 15 gm Q15M PRN PO DECREASED GLUCOSE; Start 08/21/18 at 21:08 Glucose (Glutose) 22.5 gm Q15M PRN PO DECREASED GLUCOSE; Start 08/21/18 at 21:08 Dextrose (D50w Syringe) 25 ml Q15M PRN IV DECREASED GLUCOSE; Start 08/21/18 at 21:08 Dextrose (D50w Syringe) 50 ml Q15M PRN IV DECREASED GLUCOSE; Start 08/21/18 at 21:08 Glucagon (Glucagen) 1 mg Q15M PRN IM DECREASED GLUCOSE; Start 08/21/18 at 21:08 Glucose (Glutose) 15 gm Q15M PRN BUCCAL DECREASED GLUCOSE; Start 08/21/18 at 21:08 Furosemide (Lasix) 40 mg DAILY PO Last administered on 08/26/18 09:34; Admin Dose 40 MG; Start 08/21/18 at 21:08 Famotidine (Pepcid) 20 mg DAILY PO Last administered on 08/27/18 08:50; Admin Dose 20 MG; Start 08/21/18 at 21:08 Insulin Aspart (Novolog Insulin Pen) 10 unit WITH MEALS SC Last administered on 08/27/18 08:45; Admin Dose 10 UNIT; Start 08/21/18 at 21:08 Insulin Aspart (Novolog Insulin Pen) NOVOLOG *MODERATE* ALGORITHM WITH MEALS BEDTIME SC Last administered on 08/26/18 12:16; Admin Dose 4 UNIT; Start 08/21/18 at 21:08 Oxycodone/ Acetaminophen (Endocet (10/ 325)) 1 tab Q4H PRN PO MODERATE PAIN LEVEL 4-6 Last administered on 08/27/18 03:33; Admin Dose 1 TAB; Start 08/21/18 at 21:08 Hydralazine HCl (Apresoline) 10 mg Q4H PRN IV SBP >150; Start 08/21/18 at 21:30 Acetaminophen (Tylenol Tab) 650 mg Q3H PRN PO ELEVATED TEMPERATURE Last administered on 08/26/18 15:46; Admin Dose 650 MG; Start 08/21/18 at 22:00 Apixaban (Eliquis) 5 mg BID PO Last administered on 08/26/18 22:03; Admin Dose 5 MG; Start 08/21/18 at 21:49 Ascorbic Acid (Vitamin C) 500 mg TID NGT Last administered on 08/27/18 08:51; Admin Dose 500 MG; Start 08/21/18 at 21:49 Atorvastatin Calcium (Lipitor) 40 mg HS PO Last administered on 08/26/18 22:03; Admin Dose 40 MG; Start 08/21/18 at 21:51 Carvedilol (Coreg) 12.5 mg BID PO Last administered on 08/27/18 08:51; Admin Dose 12.5 MG; Start 08/21/18 at 21:51 Docusate Sodium (Colace) 250 mg BID PO Last administered on 08/27/18 08:50; Admin Dose 250 MG; Start 08/21/18 at 21:51 Amlodipine Besylate (Norvasc) 5 mg DAILY PO Last administered on 08/27/18 08:51; Admin Dose 5 MG; Start 08/22/18 at 09:00 Magnesium Hydroxide (Milk Of Mag) 30 ml BID PRN PO CONSTIPATION Last administered on 08/22/18 17:19; Admin Dose 30 ML; Start 08/22/18 at 11:00 Lactulose (Enulose) 20 gm DAILY PRN PO CONSTIPATION Last administered on 08/22/18 12:44; Admin Dose 20 GM; Start 08/22/18 at 11:00 Bisacodyl (Dulcolax Supp) 10 mg DAILY PRN [place] CONSTIPATION; Start 08/22/18 at 11:00 Ciprofloxacin (Cipro) 500 mg BID@06,18 NGT Last administered on 08/27/18 06:50; Admin Dose 500 MG; Start 08/23/18 at 06:36 Morphine Sulfate (morphine) 1 mg Q6H PRN IV SEVERE PAIN LEVEL 7-10; Start 08/23/18 at 07:00 Hydromorphone HCl (Dilaudid) 1 mg Q4H PRN IV SEVERE PAIN LEVEL 7-10 Last administered on 08/27/18 08:50; Admin Dose 1 MG; Start 08/23/18 at 14:30 Nitroglycerin (Nitroglycerin (Sl Tab) 0.4 Mg) 1 tab Q5M PRN SL ANGINA; Start 08/24/18 at 11:30 Gabapentin (Neurontin) 100 mg TID PO Last administered on 08/27/18 08:50; Admin Dose 100 MG; Start 08/25/18 at 13:00 Polyethylene Glycol (Miralax) 17 gm TID PRN PO CONSTIPATION; Start 08/25/18 at 12:00 Insulin Glargine (Lantus) 28 units 2100 SC Last administered on 08/26/18 22:11; Admin Dose 28 UNITS; Start 08/26/18 at 21:00 DARRYL SOOD MD August 27, 2018 09:06
--- NOTE | 2018-08-27 09:15 | PN ---
Date/Time of Note Date/Time of Note DATE: 08/27/18 TIME: 09:15 Assessment/Plan VTE Prophylaxis Risk score (from Nsg)>0 risk: 10 SCD applied (from Ns): No SCD contraindicated: other (on.) Pharmacological prophylaxis: apixaban Lines/Catheters IV Catheter Type (from [facility]): [place] line still needed: No Urinary Cath still in place: No Reason Cath still needed: urinary retention Assessment/Plan Assessment/Plan 1. Ischemic heart disease angina three-vessel coronary a. disease.s/p CABG x5 08/13/18: WINN to LAD, SVG to ramus sequence to obtuse marginal artery, SVG to PDA, SVG to left ventricular extension branch. Difficult case per Dr. Howell with poor targets.Vein harvesting and epiaortic scanning of the ascending aorta.CAD: s/p multiple prior PCIs. Cath 08/11/18 with multivessel disease. Now with elevated level of the troponin the second 1 is 1.1. We will get q. 6 hours x 2. The patient denies having the chest pain. 2. Hypertension with congestive heart failure diastolic- improved. 3. Diabetes mellitus type 2 blood sugar better controlled. Continue titration. 4. History of cholecystitis and pancreatitis 5. Acute on chronic kidney disease with baseline creatinine being 1.6 up to 3.5 came down to 2.05 yesterday and 1.95 today. Improved after hydration,now mildly dehydrated; 6. Dyslipidemia better controlled 7. History of nasal bleeding recurrent- stable. 8. Morbid obesity with snoring and apnea and daytime sleepiness 9. BPH with nocturia 10. Low back pain with radiculopathy 11. 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 Status post cataract ectomy 13. Diabetic nephropathy retinopathy and angiopathy and neuropathy. 14. Constipation- improved. 15. Grief reaction after the of her 16. Gastroesophageal reflux disease 17. Deep venous thrombosis of the left saphenous vein, 2-3 months ago;was on Eliquis 5 mg twice daily, stopped: since 08/11/2018. 18. Gastritis 19. COPD. Quit smoking 10years ago. 02sat now 95% with persistent cough. 20. History of nephrolithiasis. 21. Drop of hematocrit; s/p 2 units of prbc tx. stable. 22. Drop of albumone and total protein and mild elevation of lft's. 23.Myopathy 24.Lethargy 25.Acute on chronic kidney disease, improving 25.Unstable gate Result Diagram: 08/27/18 0631 08/27/18 0631 Results 24hrs Laboratory Tests Test 08/26/18 12:11 08/26/18 17:35 08/26/18 22:08 08/27/18 06:31 Bedside Glucose 206 133 177 White Blood Count 8.5 Red Blood Count 2.90 L Hemoglobin 8.4 L Hematocrit 26.8 L Mean Corpuscular Volume 92.4 Mean Corpuscular 29.0 Hemoglobin Mean Corpuscular 31.3 L Hemoglobin Concent Red Cell Distribution 14.6 H Width Platelet Count 243 Mean Platelet Volume 11.7 H Immature Granulocytes % 0.500 H Neutrophils % 75.7 Lymphocytes % 11.8 L Monocytes % 9.4 Eosinophils % 2.2 Basophils % 0.4 Nucleated Red Blood 0.0 Cells % Immature Granulocytes # 0.040 H Neutrophils # 6.5 Lymphocytes # 1.0 Monocytes # 0.8 Eosinophils # 0.2 Basophils # 0.0 Nucleated Red Blood 0.0 Cells # Sodium Level 132 L Potassium Level 4.0 Chloride Level 93 L Carbon Dioxide Level 31 Anion Gap 8 Blood Urea Nitrogen 43 H Creatinine 2.16 H Est Glomerular Filtrat Rate mL/min Glucose Level 149 Calcium Level 8.4 Magnesium Level 2.4 Total Bilirubin 0.7 Direct Bilirubin 0.00 Indirect Bilirubin 0.7 Aspartate Amino 246 #H Transf (AST/SGOT) Alanine 235 H Aminotransferase (ALT/SG PT) Alkaline Phosphatase 300 #H Total Protein 6.3 Albumin 3.3 Globulin 3.00 Albumin/Globulin Ratio 1.10 Test 08/27/18 07:54 Bedside Glucose 152 Subjective 24 Hr Interval Summary Free Text/Dictation abdominal pain. Exam/Review of Systems Exam Vitals Vital Signs Date Temp Pulse Resp B/P (MAP) Pulse Ox O2 O2 Flow FiO2 Time Delivery Rate 08/27/18 97.5 62 20 119/60 98 Nasal 2.0 07:30 (79) Cannula 08/25/18 21 19:51 Intake and Output 08/26/18 08/26/18 08/27/18 1515:00 23:00 07:00 IntakeIntake Total 1070 ml 300 ml OutputOutput Total 460 ml 750 ml BalanceBalance 610 ml -450 ml Results Results 24hrs Laboratory Tests Test 08/26/18 12:11 08/26/18 17:35 08/26/18 22:08 08/27/18 06:31 Bedside Glucose 206 133 177 White Blood Count 8.5 Red Blood Count 2.90 L Hemoglobin 8.4 L Hematocrit 26.8 L Mean Corpuscular Volume 92.4 Mean Corpuscular 29.0 Hemoglobin Mean Corpuscular 31.3 L Hemoglobin Concent Red Cell Distribution 14.6 H Width Platelet Count 243 Mean Platelet Volume 11.7 H Immature Granulocytes % 0.500 H Neutrophils % 75.7 Lymphocytes % 11.8 L Monocytes % 9.4 Eosinophils % 2.2 Basophils % 0.4 Nucleated Red Blood 0.0 Cells % Immature Granulocytes # 0.040 H Neutrophils # 6.5 Lymphocytes # 1.0 Monocytes # 0.8 Eosinophils # 0.2 Basophils # 0.0 Nucleated Red Blood 0.0 Cells # Sodium Level 132 L Potassium Level 4.0 Chloride Level 93 L Carbon Dioxide Level 31 Anion Gap 8 Blood Urea Nitrogen 43 H Creatinine 2.16 H Est Glomerular Filtrat Rate mL/min Glucose Level 149 Calcium Level 8.4 Magnesium Level 2.4 Total Bilirubin 0.7 Direct Bilirubin 0.00 Indirect Bilirubin 0.7 Aspartate Amino 246 #H Transf (AST/SGOT) Alanine 235 H Aminotransferase (ALT/SG PT) Alkaline Phosphatase 300 #H Total Protein 6.3 Albumin 3.3 Globulin 3.00 Albumin/Globulin Ratio 1.10 Test 08/27/18 07:54 Bedside Glucose 152 Medications Medication Current Medications Ondansetron HCl (Zofran Inj) 4 mg Q6H PRN IV NAUSEA AND/OR VOMITING; Start 08/21/18 at 21:08 Albumin Human 250 ml @ 500 mls/hr PRN PRN IV CVP< 8, OR SBP<90; Start 08/21/18 at 21:08 Clopidogrel Bisulfate (plaVIX) 75 mg DAILY NGT Last administered on 08/27/18at 08:50; Admin Dose 75 MG; Start 08/21/18 at 21:08 Levalbuterol (Xopenex Neb) 1.25 mg Q6H RESP THERAPY HHN Last administered on 08/27/18at 01:32; Admin Dose 1.25 MG; Start 08/21/18 at 21:08 Ipratropium [place] (Atrovent 0.02% (Neb)) 0.5 mg Q6H RESP THERAPY HHN Last administered on 08/27/18 01:32; Admin Dose 0.5 MG; Start 08/21/18 at 21:08 Diagnostic Test (Pha) (Accu-Chek) 1 ea 02 XX Last administered on 08/23/18 02:00; Admin Dose 1 EA; Start 08/21/18 at 21:08 Miscellaneous Information 1 ea NOTE XX ; Start 08/21/18 at 21:08 Glucose (Glutose) 15 gm Q15M PRN PO DECREASED GLUCOSE; Start 08/21/18 at 21:08 Glucose (Glutose) 22.5 gm Q15M PRN PO DECREASED GLUCOSE; Start 08/21/18 at 21:08 Dextrose (D50w Syringe) 25 ml Q15M PRN IV DECREASED GLUCOSE; Start 08/21/18 at 21:08 Dextrose (D50w Syringe) 50 ml Q15M PRN IV DECREASED GLUCOSE; Start 08/21/18 at 21:08 Glucagon (Glucagen) 1 mg Q15M PRN IM DECREASED GLUCOSE; Start 08/21/18 at 21:08 Glucose (Glutose) 15 gm Q15M PRN BUCCAL DECREASED GLUCOSE; Start 08/21/18 at 21:08 Furosemide (Lasix) 40 mg DAILY PO Last administered on 08/26/18 09:34; Admin Dose 40 MG; Start 08/21/18 at 21:08 Famotidine (Pepcid) 20 mg DAILY PO Last administered on 08/27/18 08:50; Admin Dose 20 MG; Start 08/21/18 at 21:08 Insulin Aspart (Novolog Insulin Pen) 10 unit WITH MEALS SC Last administered on 08/27/18 08:45; Admin Dose 10 UNIT; Start 08/21/18 at 21:08 Insulin Aspart (Novolog Insulin Pen) NOVOLOG *MODERATE* ALGORITHM WITH MEALS BEDTIME SC Last administered on 08/26/18 12:16; Admin Dose 4 UNIT; Start 08/21/18 at 21:08 Oxycodone/ Acetaminophen (Endocet (10/ 325)) 1 tab Q4H PRN PO MODERATE PAIN LEVEL 4-6 Last administered on 08/27/18 03:33; Admin Dose 1 TAB; Start 08/21/18 at 21:08 Hydralazine HCl (Apresoline) 10 mg Q4H PRN IV SBP >150; Start 08/21/18 at 21:30 Acetaminophen (Tylenol Tab) 650 mg Q3H PRN PO ELEVATED TEMPERATURE Last administered on 08/26/18 15:46; Admin Dose 650 MG; Start 08/21/18 at 22:00 Apixaban (Eliquis) 5 mg BID PO Last administered on 08/26/18 22:03; Admin Dose 5 MG; Start 08/21/18 at 21:49 Ascorbic Acid (Vitamin C) 500 mg TID NGT Last administered on 08/27/18 08:51; Admin Dose 500 MG; Start 08/21/18 at 21:49 Atorvastatin Calcium (Lipitor) 40 mg HS PO Last administered on 08/26/18 22:03; Admin Dose 40 MG; Start 08/21/18 at 21:51 Carvedilol (Coreg) 12.5 mg BID PO Last administered on 08/27/18 08:51; Admin Dose 12.5 MG; Start 08/21/18 at 21:51 Docusate Sodium (Colace) 250 mg BID PO Last administered on 08/27/18 08:50; Admin Dose 250 MG; Start 08/21/18 at 21:51 Amlodipine Besylate (Norvasc) 5 mg DAILY PO Last administered on 08/27/18 08:51; Admin Dose 5 MG; Start 08/22/18 at 09:00 Magnesium Hydroxide (Milk Of Mag) 30 ml BID PRN PO CONSTIPATION Last administered on 08/22/18 17:19; Admin Dose 30 ML; Start 08/22/18 at 11:00 Lactulose (Enulose) 20 gm DAILY PRN PO CONSTIPATION Last administered on 08/22/18 12:44; Admin Dose 20 GM; Start 08/22/18 at 11:00 Bisacodyl (Dulcolax Supp) 10 mg DAILY PRN [place] CONSTIPATION; Start 08/22/18 at 11:00 Ciprofloxacin (Cipro) 500 mg BID@06,18 NGT Last administered on 08/27/18 06:50; Admin Dose 500 MG; Start 08/23/18 at 06:36 Morphine Sulfate (morphine) 1 mg Q6H PRN IV SEVERE PAIN LEVEL 7-10; Start 08/23/18 at 07:00 Hydromorphone HCl (Dilaudid) 1 mg Q4H PRN IV SEVERE PAIN LEVEL 7-10 Last administered on 08/27/18at 08:50; Admin Dose 1 MG; Start 08/23/18 at 14:30 Nitroglycerin (Nitroglycerin (Sl Tab) 0.4 Mg) 1 tab Q5M PRN SL ANGINA; Start 08/24/18 at 11:30 Gabapentin (Neurontin) 100 mg TID PO Last administered on 08/27/18at 08:50; Admin Dose 100 MG; Start 08/25/18 at 13:00 Polyethylene Glycol (Miralax) 17 gm TID PRN PO CONSTIPATION; Start 08/25/18 at 12:00 Insulin Glargine (Lantus) 28 units 2100 SC Last administered on 08/26/18at 22:11; Admin Dose 28 UNITS; Start 08/26/18 at 21:00 Furosemide (Lasix) 20 mg ONCE STAT IV ; Start 08/27/18 at 09:06; Stop 08/27/18 at 09:07; Status UNV NERIS BROTHERS MD August 27, 2018 09:15
--- NOTE | 2018-08-27 09:58 | CONS ---
Assessment/Plan Assessment/Plan Hospital Course (Demo Recall) 73 yo male with h/o severe coronary artery disease, s/p multi vessel CABG, is referred to GI to evaluate for abnormal LFTs 1. Pancreatitis, likely biliary -lipid panel -US of liver pending -NPO -IVF for hydration 2. Transaminitis -elevated alk, alt, ast -monitor qd -US of liver -lipase and amylase -limit hepatatoxic medications 3. Severe coronary artery disease, S/P multi vessel CABG recently - pr cardiology team 4. Diabetes mellitus -per primary team 5. Renal failure -per nephrology team 6. Iron deficiency anemia -monitor HH and for acute GI bleeding, pt is on eliquis and plavix 7. Obesity 8. HTN 9. DM2 Plan: US of liver Monitor LFTs, lipase and amylase NPO on IVF, RN to follow up with primary on which IVF to start, but for now D5- NS at 80cc Monitor HH and for GI bleeding Pt examined and plan of care discussed with Dr. Bill Consultation Date/Type/Reason Admit Date/Time August 21, 2018 at 18:31 Date/Time of Note DATE: 08/27/18 TIME: 09:25 Hx of Present Illness 73 yo male presented to [facility] with severe coronary artery disease and underwent a multi vessel CABG on 08/13/2018. Pt was found then to have acute on chronic renal failure and resp failure requiring ventilation with eventual extubation. He was transferred to [facility]. His LFTs were found to be elevated this am. Alk 235, AST 246, Alk phos 300. T bili wnl. Pt is on atorvastatin, plavix, eliquis, lipitor. Pt denies N/V or any abdominal pain. He says he had some pain in epigastric area two days ago but not since. He is having bm, pt states liquid and normal. RN is unaware of diarrhea. He has been tolerating PO diet. Denies changes to bowel habits or to abdomen. He denies fever or chills, SOB, dysuria. Denies having any issues with his liver in past that he is aware of. H/O cholecystectomy. Pt does drink but not often. Does not smoke or do illicit/recreational drugs. Past Medical History Medical History: angina, colitis, congestive heart failure, coronary artery disease, deep vein thrombosis, diabetes, diverticulitis, gallstones, GERD, GI bleed, high cholesterol, hypertension, pancreatitis, peptic ulcer disease, urinary tract infection Home Meds Reported Medications Insulin Aspart* (Novolog Insulin Pen*) 100 Unit/Ml Soln, 0 SC .SLIDING SCALE AC, EA AC MEALS 08/11/18 Insulin Detemir (Levemir Flextouch) 100 Unit/1 Ml Insuln.pen, 25 UNIT SQ QHS, EA 08/11/18 Potassium Chloride* (K-Dur*) 10 Meq Tab.prt.sr, 10 MEQ PO DAILY, TAB 08/11/18 Furosemide* (Furosemide*) 40 Mg Tablet, 40 MG PO DAILY, TAB 08/11/18 Aspirin (Low Dose Aspirin) 81 Mg Tablet.dr, 81 MG PO DAILY, #30 TAB 08/11/18 Apixaban* (Eliquis*) 5 Mg Tablet, 5 MG PO BID, TAB 08/11/18 Clonidine Hcl* (Clonidine Hcl*) 0.1 Mg Tab, 0.1 MG PO DAILY PRN for ELEVATED BLOOD PRESSURE, TAB 08/11/18 Carvedilol* (Coreg CR*) 40 Mg Capsr, 40 MG PO DAILY, #30 CAP 08/11/18 Rosuvastatin Calcium* (Crestor*) 40 Mg Tablet, 40 MG PO QHS, #30 TAB 08/11/18 Amlodipine Besylate* (Norvasc*) 5 Mg Tablet, 5 MG PO DAILY, TAB 08/11/18 Medications Current Medications Ondansetron HCl (Zofran Inj) 4 mg Q6H PRN IV NAUSEA AND/OR VOMITING; Start 08/21/18 at 21:08 Albumin Human 250 ml @ 500 mls/hr PRN PRN IV CVP< 8, OR SBP<90; Start 08/21/18 at 21:08 Clopidogrel Bisulfate (plaVIX) 75 mg DAILY NGT Last administered on 08/27/18at 08:50; Admin Dose 75 MG; Start 08/21/18 at 21:08 Levalbuterol (Xopenex Neb) 1.25 mg Q6H RESP THERAPY HHN Last administered on 08/27/18at 01:32; Admin Dose 1.25 MG; Start 08/21/18 at 21:08 Ipratropium [place] (Atrovent 0.02% (Neb)) 0.5 mg Q6H RESP THERAPY HHN Last administered on 08/27/18 01:32; Admin Dose 0.5 MG; Start 08/21/18 at 21:08 Diagnostic Test (Pha) (Accu-Chek) 1 ea 02 XX Last administered on 08/23/18 02:00; Admin Dose 1 EA; Start 08/21/18 at 21:08 Miscellaneous Information 1 ea NOTE XX ; Start 08/21/18 at 21:08 Glucose (Glutose) 15 gm Q15M PRN PO DECREASED GLUCOSE; Start 08/21/18 at 21:08 Glucose (Glutose) 22.5 gm Q15M PRN PO DECREASED GLUCOSE; Start 08/21/18 at 21:08 Dextrose (D50w Syringe) 25 ml Q15M PRN IV DECREASED GLUCOSE; Start 08/21/18 at 21:08 Dextrose (D50w Syringe) 50 ml Q15M PRN IV DECREASED GLUCOSE; Start 08/21/18 at 21:08 Glucagon (Glucagen) 1 mg Q15M PRN IM DECREASED GLUCOSE; Start 08/21/18 at 21:08 Glucose (Glutose) 15 gm Q15M PRN BUCCAL DECREASED GLUCOSE; Start 08/21/18 at 21:08 Furosemide (Lasix) 40 mg DAILY PO Last administered on 08/26/18 09:34; Admin Dose 40 MG; Start 08/21/18 at 21:08 Famotidine (Pepcid) 20 mg DAILY PO Last administered on 08/27/18 08:50; Admin Dose 20 MG; Start 08/21/18 at 21:08 Insulin Aspart (Novolog Insulin Pen) 10 unit WITH MEALS SC Last administered on 08/27/18 08:45; Admin Dose 10 UNIT; Start 08/21/18 at 21:08 Insulin Aspart (Novolog Insulin Pen) NOVOLOG *MODERATE* ALGORITHM WITH MEALS BEDTIME SC Last administered on 08/26/18 12:16; Admin Dose 4 UNIT; Start 08/21 at 21:08 Oxycodone/ Acetaminophen (Endocet (10/ 325)) 1 tab Q4H PRN PO MODERATE PAIN LEVEL 4-6 Last administered on 08/27/18 03:33; Admin Dose 1 TAB; Start 08/21/18 at 21:08 Hydralazine HCl (Apresoline) 10 mg Q4H PRN IV SBP >150; Start 08/21/18 at 21:30 Acetaminophen (Tylenol Tab) 650 mg Q3H PRN PO ELEVATED TEMPERATURE Last administered on 08/26/18 15:46; Admin Dose 650 MG; Start 08/21/18 at 22:00 Apixaban (Eliquis) 5 mg BID PO Last administered on 08/26/18 22:03; Admin Dose 5 MG; Start 08/21/18 at 21:49 Ascorbic Acid (Vitamin C) 500 mg TID NGT Last administered on 08/27/18 08:51; Admin Dose 500 MG; Start 08/21/18 at 21:49 Atorvastatin Calcium (Lipitor) 40 mg HS PO Last administered on 08/26/18 22:03; Admin Dose 40 MG; Start 08/21/18 at 21:51 Carvedilol (Coreg) 12.5 mg BID PO Last administered on 08/27/18 08:51; Admin Dose 12.5 MG; Start 08/21/18 at 21:51 Docusate Sodium (Colace) 250 mg BID PO Last administered on 08/27/18 08:50; Admin Dose 250 MG; Start 08/21/18 at 21:51 Amlodipine Besylate (Norvasc) 5 mg DAILY PO Last administered on 08/27/18 08:51; Admin Dose 5 MG; Start 08/22/18 at 09:00 Magnesium Hydroxide (Milk Of Mag) 30 ml BID PRN PO CONSTIPATION Last administered on 08/22/18 17:19; Admin Dose 30 ML; Start 08/22/18 at 11:00 Lactulose (Enulose) 20 gm DAILY PRN PO CONSTIPATION Last administered on 08/22/18 12:44; Admin Dose 20 GM; Start 08/22/18 at 11:00 Bisacodyl (Dulcolax Supp) 10 mg DAILY PRN [place] CONSTIPATION; Start 08/22/18 at 11:00 Ciprofloxacin (Cipro) 500 mg BID@06,18 NGT Last administered on 08/27/18 06:50; Admin Dose 500 MG; Start 08/23/18 at 06:36 Morphine Sulfate (morphine) 1 mg Q6H PRN IV SEVERE PAIN LEVEL 7-10; Start 08/23/18 at 07:00 Hydromorphone HCl (Dilaudid) 1 mg Q4H PRN IV SEVERE PAIN LEVEL 7-10 Last administered on 08/27/18at 08:50; Admin Dose 1 MG; Start 08/23/18 at 14:30 Nitroglycerin (Nitroglycerin (Sl Tab) 0.4 Mg) 1 tab Q5M PRN SL ANGINA; Start 08/24/18 at 11:30 Gabapentin (Neurontin) 100 mg TID PO Last administered on 08/27/18at 08:50; Admin Dose 100 MG; Start 08/25/18 at 13:00 Polyethylene Glycol (Miralax) 17 gm TID PRN PO CONSTIPATION; Start 08/25/18 at 12:00 Insulin Glargine (Lantus) 28 units 2100 SC Last administered on 08/26/18at 22:11; Admin Dose 28 UNITS; Start 08/26/18 at 21:00 Allergies: Coded Allergies: No Known Allergy (Unverified , 08/11/18) Past Surgical History Past Surgical Hx: angioplasty, cholecystectomy, coronary bypass surgery, endoscopy Social History Alcohol Use: rarely Smoking Status: Never smoker Drug Use: none Exam/Review of Systems Exam Vitals Vital Signs Date Temp Pulse Resp B/P (MAP) Pulse Ox O2 O2 Flow FiO2 Time Delivery Rate 08/27/18 97.5 62 20 119/60 98 Nasal 2.0 07:30 (79) Cannula 08/25/18 21 19:51 Intake and Output 08/26/18 08/26/18 08/27/18 1515:00 23:00 07:00 IntakeIntake Total 1070 ml 300 ml OutputOutput Total 460 ml 750 ml BalanceBalance 610 ml -450 ml Constitutional: alert, oriented Psych: no complaints Head: normocephalic Eyes: nl sclera, PERRL Neck: supple Respiratory: clear to auscultation Cardiovascular: irregular rhythm Gastrointestinal: soft, non-tender, other (obese, ) Musculoskeletal: nl extremities to inspection, muscle weakness Extremities: normal pulses, edema 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: nl mental status Results Result Diagram: 08/27/1863008/27/18630 Results 24hrs Laboratory Tests Test 08/26/18 12:11 08/26/18 17:35 08/26/18 22:08 08/27/18 06:31 Bedside Glucose 206 133 177 White Blood Count 8.5 Red Blood Count 2.90 L Hemoglobin 8.4 L Hematocrit 26.8 L Mean Corpuscular Volume 92.4 Mean Corpuscular 29.0 Hemoglobin Mean Corpuscular 31.3 L Hemoglobin Concent Red Cell Distribution 14.6 H Width Platelet Count 243 Mean Platelet Volume 11.7 H Immature Granulocytes % 0.500 H Neutrophils % 75.7 Lymphocytes % 11.8 L Monocytes % 9.4 Eosinophils % 2.2 Basophils % 0.4 Nucleated Red Blood 0.0 Cells % Immature Granulocytes # 0.040 H Neutrophils # 6.5 Lymphocytes # 1.0 Monocytes # 0.8 Eosinophils # 0.2 Basophils # 0.0 Nucleated Red Blood 0.0 Cells # Sodium Level 132 L Potassium Level 4.0 Chloride Level 93 L Carbon Dioxide Level 31 Anion Gap 8 Blood Urea Nitrogen 43 H Creatinine 2.16 H Est Glomerular Filtrat Rate mL/min Glucose Level 149 Calcium Level 8.4 Magnesium Level 2.4 Total Bilirubin 0.7 Direct Bilirubin 0.00 Indirect Bilirubin 0.7 Aspartate Amino 246 #H Transf (AST/SGOT) Alanine 235 H Aminotransferase (ALT/SG PT) Alkaline Phosphatase 300 #H Total Protein 6.3 Albumin 3.3 Globulin 3.00 Albumin/Globulin Ratio 1.10 Test 08/27/18 07:54 Bedside Glucose 152 Medications Medication Current Medications Ondansetron HCl (Zofran Inj) 4 mg Q6H PRN IV NAUSEA AND/OR VOMITING; Start 08/21/18 at 21:08 Albumin Human 250 ml @ 500 mls/hr PRN PRN IV CVP< 8, OR SBP<90; Start 08/21/18 at 21:08 Clopidogrel Bisulfate (plaVIX) 75 mg DAILY NGT Last administered on 08/27/18 08:50; Admin Dose 75 MG; Start 08/21/18 at 21:08 Levalbuterol (Xopenex Neb) 1.25 mg Q6H RESP THERAPY HHN Last administered on 08/27/18 01:32; Admin Dose 1.25 MG; Start 08/21/18 at 21:08 Ipratropium [place] (Atrovent 0.02% (Neb)) 0.5 mg Q6H RESP THERAPY HHN Last administered on 08/27/18 01:32; Admin Dose 0.5 MG; Start 08/21/18 at 21:08 Diagnostic Test (Pha) (Accu-Chek) 1 ea 02 XX Last administered on 08/23/18at 02:00; Admin Dose 1 EA; Start 08/21/18 at 21:08 Miscellaneous Information 1 ea NOTE XX ; Start 08/21/18 at 21:08 Glucose (Glutose) 15 gm Q15M PRN PO DECREASED GLUCOSE; Start 08/21/18 at 21:08 Glucose (Glutose) 22.5 gm Q15M PRN PO DECREASED GLUCOSE; Start 08/21/18 at 21:08 Dextrose (D50w Syringe) 25 ml Q15M PRN IV DECREASED GLUCOSE; Start 08/21/18 at 21:08 Dextrose (D50w Syringe) 50 ml Q15M PRN IV DECREASED GLUCOSE; Start 08/21/18 at 21:08 Glucagon (Glucagen) 1 mg Q15M PRN IM DECREASED GLUCOSE; Start 08/21/18 at 21:08 Glucose (Glutose) 15 gm Q15M PRN BUCCAL DECREASED GLUCOSE; Start 08/21/18 at 21:08 Furosemide (Lasix) 40 mg DAILY PO Last administered on 08/26/18at 09:34; Admin Dose 40 MG; Start 08/21/18 at 21:08 Famotidine (Pepcid) 20 mg DAILY PO Last administered on 08/27/18 08:50; Admin Dose 20 MG; Start 08/21/18 at 21:08 Insulin Aspart (Novolog Insulin Pen) 10 unit WITH MEALS SC Last administered on 08/27/18 08:45; Admin Dose 10 UNIT; Start 08/21/18 at 21:08 Insulin Aspart (Novolog Insulin Pen) NOVOLOG *MODERATE* ALGORITHM WITH MEALS BEDTIME SC Last administered on 08/26/18 12:16; Admin Dose 4 UNIT; Start 08/21/18 at 21:08 Oxycodone/ Acetaminophen (Endocet (10/ 325)) 1 tab Q4H PRN PO MODERATE PAIN LEVEL 4-6 Last administered on 08/27/18 03:33; Admin Dose 1 TAB; Start 08/21/18 at 21:08 Hydralazine HCl (Apresoline) 10 mg Q4H PRN IV SBP >150; Start 08/21/18 at 21:30 Acetaminophen (Tylenol Tab) 650 mg Q3H PRN PO ELEVATED TEMPERATURE Last adm inistered on 08/26/18at 15:46; Admin Dose 650 MG; Start 08/21/18 at 22:00 Apixaban (Eliquis) 5 mg BID PO Last administered on 08/26/18 22:03; Admin Dose 5 MG; Start 08/21/18 at 21:49 Ascorbic Acid (Vitamin C) 500 mg TID NGT Last administered on 08/27/18 08:51; Admin Dose 500 MG; Start 08/21/18 at 21:49 Atorvastatin Calcium (Lipitor) 40 mg HS PO Last administered on 08/26/18 22:03; Admin Dose 40 MG; Start 08/21/18 at 21:51 Carvedilol (Coreg) 12.5 mg BID PO Last administered on 08/27/18 08:51; Admin Dose 12.5 MG; Start 08/21/18 at 21:51 Docusate Sodium (Colace) 250 mg BID PO Last administered on 08/27/18 08:50; Admin Dose 250 MG; Start 08/21/18 at 21:51 Amlodipine Besylate (Norvasc) 5 mg DAILY PO Last administered on 08/27/18 08:51; Admin Dose 5 MG; Start 08/22/18 at 09:00 Magnesium Hydroxide (Milk Of Mag) 30 ml BID PRN PO CONSTIPATION Last administered on 08/22/18 17:19; Admin Dose 30 ML; Start 08/22/18 at 11:00 Lactulose (Enulose) 20 gm DAILY PRN PO CONSTIPATION Last administered on 12:44; Admin Dose 20 GM; Start 08/22/18 at 11:00 Bisacodyl (Dulcolax Supp) 10 mg DAILY PRN [place] CONSTIPATION; Start 08/22/18 at 11:00 Ciprofloxacin (Cipro) 500 mg BID@,18 NGT Last administered on 08/27/18 06:50; Admin Dose 500 MG; Start 08/23/18 at 06:36 Morphine Sulfate (morphine) 1 mg Q6H PRN IV SEVERE PAIN LEVEL 7-10; Start 08/23/18 at 07:00 Hydromorphone HCl (Dilaudid) 1 mg Q4H PRN IV SEVERE PAIN LEVEL 7-10 Last administered on 08/27/18 08:50; Admin Dose 1 MG; Start 08/23/18 at 14:30 Nitroglycerin (Nitroglycerin (Sl Tab) 0.4 Mg) 1 tab Q5M PRN SL ANGINA; Start 08/24/18 at 11:30 Gabapentin (Neurontin) 100 mg TID PO Last administered on 08/27/18at 08:50; Admin Dose 100 MG; Start 08/25/18 at 13:00 Polyethylene Glycol (Miralax) 17 gm TID PRN PO CONSTIPATION; Start 08/25/18 at 12:00 Insulin Glargine (Lantus) 28 units 2100 SC Last administered on 08/26/18at 22:11; Admin Dose 28 UNITS; Start 08/26/18 at 21:00 BRIAN REDDY August 27, 2018 09:58
[2018-08-27] MEDS: APIXABAN 5 MG TABLET PO SCH (10:39)
[2018-08-27] MEDS: FUROSEMIDE 40 MG TAB PO SCH (10:40)
[2018-08-27] MEDS ORDERED: HYDROmorphONE 1 MG/ML SYG IV ONE ×2 (12:00→13:00)
--- NOTE | 2018-08-27 12:36 | PN ---
Date/Time of Note Date/Time of Note DATE: 08/27/18 TIME: 12:34 Subjective He reports feeling better Objective Vital Signs Date Temp Pulse Resp B/P (MAP) Pulse Ox O2 O2 Flow FiO2 Time Delivery Rate 08/27/18 97.5 62 20 119/60 98 Nasal 2.0 07:30 (79) Cannula 08/25/18 21 19:51 Intake and Output 08/26/18 08/26/18 08/27/18 1515:00 23:00 07:00 IntakeIntake Total 1070 ml 300 ml OutputOutput Total 460 ml 750 ml BalanceBalance 610 ml -450 ml Exam pulm-cta min/mod 15 feet Results/Medications Result Diagram: 08/27/1863008/27/18630 Results 24 hrs Laboratory Tests Test 08/26/18 17:35 08/26/18 22:08 08/27/18 06:31 08/27/18 07:54 Bedside Glucose 133 177 152 White Blood Count 8.5 Red Blood Count 2.90 L Hemoglobin 8.4 L Hematocrit 26.8 L Mean Corpuscular Volume 92.4 Mean Corpuscular 29.0 Hemoglobin Mean Corpuscular 31.3 L Hemoglobin Concent Red Cell Distribution 14.6 H Width Platelet Count 243 Mean Platelet Volume 11.7 H Immature Granulocytes % 0.500 H Neutrophils % 75.7 Lymphocytes % 11.8 L Monocytes % 9.4 Eosinophils % 2.2 Basophils % 0.4 Nucleated Red Blood 0.0 Cells % Immature Granulocytes # 0.040 H Neutrophils # 6.5 Lymphocytes # 1.0 Monocytes # 0.8 Eosinophils # 0.2 Basophils # 0.0 Nucleated Red Blood 0.0 Cells # Sodium Level 132 L Potassium Level 4.0 Chloride Level 93 L Carbon Dioxide Level 31 Anion Gap 8 Blood Urea Nitrogen 43 H Creatinine 2.16 H Est Glomerular Filtrat Rate mL/min Glucose Level 149 Calcium Level 8.4 Magnesium Level 2.4 Total Bilirubin 0.7 Direct Bilirubin 0.00 Indirect Bilirubin 0.7 Aspartate Amino 246 #H Transf (AST/SGOT) Alanine 235 H Aminotransferase (ALT/SG PT) Alkaline Phosphatase 300 #H Total Protein 6.3 Albumin 3.3 Globulin 3.00 Albumin/Globulin Ratio 1.10 Amylase Level 487 H Lipase 1665 H Medications Current Medications Ondansetron HCl (Zofran Inj) 4 mg Q6H PRN IV NAUSEA AND/OR VOMITING; Start 08/21/18 at 21:08 Albumin Human 250 ml @ 500 mls/hr PRN PRN IV CVP< 8, OR SBP<90; Start 08/21/18 at 21:08 Clopidogrel Bisulfate (plaVIX) 75 mg DAILY NGT Last administered on 08/27/18 08:50; Admin Dose 75 MG; Start 08/21/18 at 21:08 Levalbuterol (Xopenex Neb) 1.25 mg Q6H RESP THERAPY HHN Last administered on 08/27/18 01:32; Admin Dose 1.25 MG; Start 08/21/18 at 21:08 Ipratropium [place] (Atrovent 0.02% (Neb)) 0.5 mg Q6H RESP THERAPY HHN Last administered on 08/27/18 01:32; Admin Dose 0.5 MG; Start 08/21/18 at 21:08 Diagnostic Test (Pha) (Accu-Chek) 1 ea 02 XX Last administered on 08/23/18at 02:00; Admin Dose 1 EA; Start 08/21/18 at 21:08 Miscellaneous Information 1 ea NOTE XX ; Start 08/21/18 at 21:08 Glucose (Glutose) 15 gm Q15M PRN PO DECREASED GLUCOSE; Start 08/21/18 at 21:08 Glucose (Glutose) 22.5 gm Q15M PRN PO DECREASED GLUCOSE; Start 08/21/18 at 21:08 Dextrose (D50w Syringe) 25 ml Q15M PRN IV DECREASED GLUCOSE; Start 08/21/18 at 21:08 Dextrose (D50w Syringe) 50 ml Q15M PRN IV DECREASED GLUCOSE; Start 08/21/18 at 21:08 Glucagon (Glucagen) 1 mg Q15M PRN IM DECREASED GLUCOSE; Start 08/21/18 at 21:08 Glucose (Glutose) 15 gm Q15M PRN BUCCAL DECREASED GLUCOSE; Start 08/21/18 at 21:08 Furosemide (Lasix) 40 mg DAILY PO Last administered on 08/27/18at 10:40; Admin Dose 40 MG; Start 08/21/18 at 21:08 Famotidine (Pepcid) 20 mg DAILY PO Last administered on 08/27/18 08:50; Admin Dose 20 MG; Start 08/21/18 at 21:08 Insulin Aspart (Novolog Insulin Pen) 10 unit WITH MEALS SC Last administered on 08/27/18 08:45; Admin Dose 10 UNIT; Start 08/21/18 at 21:08 Insulin Aspart (Novolog Insulin Pen) NOVOLOG *MODERATE* ALGORITHM WITH MEALS BEDTIME SC Last administered on 08/26/18 12:16; Admin Dose 4 UNIT; Start 08/21/18 at 21:08 Oxycodone/ Acetaminophen (Endocet (10/ 325)) 1 tab Q4H PRN PO MODERATE PAIN LEVEL 4-6 Last administered on 08/27/18 03:33; Admin Dose 1 TAB; Start 08/21/18 at 21:08 Hydralazine HCl (Apresoline) 10 mg Q4H PRN IV SBP >150; Start 08/21/18 at 21:30 Acetaminophen (Tylenol Tab) 650 mg Q3H PRN PO ELEVATED TEMPERATURE Last administered on 08/26/18 15:46; Admin Dose 650 MG; Start 08/21/18 at 22:00 Apixaban (Eliquis) 5 mg BID PO Last administered on 08/27/18 10:39; Admin Dose 5 MG; Start 08/21/18 at 21:49 Ascorbic Acid (Vitamin C) 500 mg TID NGT Last administered on 08/27/18 08:51; Admin Dose 500 MG; Start 08/21/18 at 21:49 Carvedilol (Coreg) 12.5 mg BID PO Last administered on 08/27/18 08:51; Admin Dose 12.5 MG; Start 08/21/18 at 21:51 Docusate Sodium (Colace) 250 mg BID PO Last administered on 08/27/18 08:50; Admin Dose 250 MG; Start 08/21/18 at 21:51 Amlodipine Besylate (Norvasc) 5 mg DAILY PO Last administered on 08/27/18 08:51; Admin Dose 5 MG; Start 08/22/18 at 09:00 Magnesium Hydroxide (Milk Of Mag) 30 ml BID PRN PO CONSTIPATION Last administered on 08/22/18 17:19; Admin Dose 30 ML; Start 08/22/18 at 11:00 Lactulose (Enulose) 20 gm DAILY PRN PO CONSTIPATION Last administered on 08/22/18 12:44; Admin Dose 20 GM; Start 08/22/18 at 11:00 Bisacodyl (Dulcolax Supp) 10 mg DAILY PRN [place] CONSTIPATION; Start 08/22/18 at 11:00 Ciprofloxacin (Cipro) 500 mg BID@06,18 NGT Last administered on 08/27/18at 06:50; Admin Dose 500 MG; Start 08/23/18 at 06:36 Morphine Sulfate (morphine) 1 mg Q6H PRN IV SEVERE PAIN LEVEL 7-10; Start 08/23/18 at 07:00 Hydromorphone HCl (Dilaudid) 1 mg Q4H PRN IV SEVERE PAIN LEVEL 7-10 Last ad ministered on 08/27/18at 11:46; Admin Dose 1 MG; Start 08/23/18 at 14:30 Nitroglycerin (Nitroglycerin (Sl Tab) 0.4 Mg) 1 tab Q5M PRN SL ANGINA; Start 08/24/18 at 11:30 Gabapentin (Neurontin) 100 mg TID PO Last administered on 08/27/18at 08:50; Admin Dose 100 MG; Start 08/25/18 at 13:00 Polyethylene Glycol (Miralax) 17 gm TID PRN PO CONSTIPATION; Start 08/25/18 at 12:00 Insulin Glargine (Lantus) 28 units 2100 SC Last administered on 08/26/18at 22:11; Admin Dose 28 UNITS; Start 08/26/18 at 21:00 Assessment/Plan Additional Assessment/Plan rehab- Critical illness myopathy; Lumbar radiculopathy with right lower extremity symptoms. Continue rehab interdisciplinary program Coronary artery disease status post 5-vessel CABG. Status post acute respiratory failure. Acute on chronic kidney disease. Oropharyngeal dysphagia on mechanical soft diet. Chronic obstructive pulmonary disease. Diabetes mellitus type 2. Hypertension. Hyperlipidemia. Osteoarthritis affecting multiple joints, including bilateral knees. Diabetic retinopathy. Anemia of chronic disease. Benign prostatic hypertrophy. YARIEL MARIE MD August 27, 2018 12:36
--- NOTE | 2018-08-27 12:54 | CONS ---
Assessment/Plan Assessment/Plan Hospital Course (Demo Recall) Pancreatitis:had an episode few months ago and was hospitalized at [facility]. No gallstones at that time. Not a drinker, TG ok in the past. Transaminitis: due to above. NSTEMI: residual trop elevation likely from CABG. Trend does not suggest ACS. No symptoms. Ankle pain: ?gout vs less likely fracture. Improving Acute on chronic diastolic CHF: ~euvolemic Acute on chronic renal failure: Cr baseline 1.6. Worse after CABG.Now ~2 Cardiogenic shock: Transient post op Acute respiratory failure: s/p extubation 08/16 Anemia: from operative blood loss. Required one unit. No active bleeding s/p CABG x5 08/13/18: WINN to LAD, SVG to ramus sequence to obtuse marginal artery, SVG to PDA, SVG to left ventricular extension branch. Difficult case per Dr. Howell with poor targets. CAD: s/p multiple prior PCIs. Cath 08/11/18 with multivessel disease. s/p CABG above Recent left femoral DVT: on Eliquis as outpt. DM HT HL -hold Eliquis for now to avoid hemorrhagic pancreatitis -GI eval, workup -lasix 40mg PO daily -continue plavix -coreg 12.5mg BID -amlodipine 5mg -lipitor 40mg on hold due to transaminitis Consultation Date/Type/Reason Admit Date/Time August 21, 2018 at 18:31 Initial Consult Date Type of Consult Cardiology Requesting Provider: NERIS BROTHERS MD Date/Time of Note DATE: 08/27/18 TIME: 12:52 24 HR Interval Summary Free Text/Dictation Had abdominal pain this am. Labs show elevated transminases and lipase. Seen by GI and workup underway. Exam/Review of Systems Vital Signs Vitals Vital Signs Date Temp Pulse Resp B/P (MAP) Pulse Ox O2 O2 Flow FiO2 Time Delivery Rate 08/27/18 97.5 62 20 119/60 98 Nasal 2.0 07:30 (79) Cannula 08/25/18 21 19:51 Intake and Output 08/26/18 08/26/18 08/27/18 1414:59 22:59 06:59 IntakeIntake Total 1070 ml 300 ml OutputOutput Total 460 ml 750 ml BalanceBalance 610 ml -450 ml Exam Constitutional: alert, oriented Psych: no complaints, nl mood/affect Head: normocephalic, atraumatic Neck: No jvd Respiratory: diminished breath sounds; No clear to auscultation Cardiovascular: regular rate and rhythm, edema (1+); No systolic murmur Gastrointestinal: soft, distended; No non-tender (epigastric) 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: nl mental status, nl speech Labs Result Diagram: 08/27/18 0631 08/27/18 0631 Results 24hrs Laboratory Tests Test 08/26/18 17:35 08/26/18 22:08 08/27/18 06:31 08/27/18 07:54 Bedside Glucose 133 177 152 White Blood Count 8.5 Red Blood Count 2.90 L Hemoglobin 8.4 L Hematocrit 26.8 L Mean Corpuscular Volume 92.4 Mean Corpuscular 29.0 Hemoglobin Mean Corpuscular 31.3 L Hemoglobin Concent Red Cell Distribution 14.6 H Width Platelet Count 243 Mean Platelet Volume 11.7 H Immature Granulocytes % 0.500 H Neutrophils % 75.7 Lymphocytes % 11.8 L Monocytes % 9.4 Eosinophils % 2.2 Basophils % 0.4 Nucleated Red Blood 0.0 Cells % Immature Granulocytes # 0.040 H Neutrophils # 6.5 Lymphocytes # 1.0 Monocytes # 0.8 Eosinophils # 0.2 Basophils # 0.0 Nucleated Red Blood 0.0 Cells # Sodium Level 132 L Potassium Level 4.0 Chloride Level 93 L Carbon Dioxide Level 31 Anion Gap 8 Blood Urea Nitrogen 43 H Creatinine 2.16 H Est Glomerular Filtrat Rate mL/min Glucose Level 149 Calcium Level 8.4 Magnesium Level 2.4 Total Bilirubin 0.7 Direct Bilirubin 0.00 Indirect Bilirubin 0.7 Aspartate Amino 246 #H Transf (AST/SGOT) Alanine 235 H Aminotransferase (ALT/SG PT) Alkaline Phosphatase 300 #H Total Protein 6.3 Albumin 3.3 Globulin 3.00 Albumin/Globulin Ratio 1.10 Amylase Level 487 H Lipase 1665 H Medications Medications Current Medications Ondansetron HCl (Zofran Inj) 4 mg Q6H PRN IV NAUSEA AND/OR VOMITING; Start 08/21/18 at 21:08 Albumin Human 250 ml @ 500 mls/hr PRN PRN IV CVP< 8, OR SBP<90; Start 08/21/18 at 21:08 Clopidogrel Bisulfate (plaVIX) 75 mg DAILY NGT Last administered on 08/27/18 08:50; Admin Dose 75 MG; Start 08/21/18 at 21:08 Levalbuterol (Xopenex Neb) 1.25 mg Q6H RESP THERAPY HHN Last administered on 08/27/18 01:32; Admin Dose 1.25 MG; Start 08/21/18 at 21:08 Ipratropium [place] (Atrovent 0.02% (Neb)) 0.5 mg Q6H RESP THERAPY HHN Last administered on 08/27/18 01:32; Admin Dose 0.5 MG; Start 08/21/18 at 21:08 Diagnostic Test (Pha) (Accu-Chek) 1 ea 02 XX Last administered on 08/23/18 02:00; Admin Dose 1 EA; Start 08/21/18 at 21:08 Miscellaneous Information 1 ea NOTE XX ; Start 08/21/18 at 21:08 Glucose (Glutose) 15 gm Q15M PRN PO DECREASED GLUCOSE; Start 08/21/18 at 21:08 Glucose (Glutose) 22.5 gm Q15M PRN PO DECREASED GLUCOSE; Start 08/21/18 at 21:08 Dextrose (D50w Syringe) 25 ml Q15M PRN IV DECREASED GLUCOSE; Start 08/21/18 at 21:08 Dextrose (D50w Syringe) 50 ml Q15M PRN IV DECREASED GLUCOSE; Start 08/21/18 at 21:08 Glucagon (Glucagen) 1 mg Q15M PRN IM DECREASED GLUCOSE; Start 08/21/18 at 21:08 Glucose (Glutose) 15 gm Q15M PRN BUCCAL DECREASED GLUCOSE; Start 08/21/18 at 21:08 Furosemide (Lasix) 40 mg DAILY PO Last administered on 08/27/18 10:40; Admin Dose 40 MG; Start 08/21/18 at 21:08 Famotidine (Pepcid) 20 mg DAILY PO Last administered on 08/27/18 08:50; Admin Dose 20 MG; Start 08/21/18 at 21:08 Insulin Aspart (Novolog Insulin Pen) 10 unit WITH MEALS SC Last administered on 08/27/18 08:45; Admin Dose 10 UNIT; Start 08/21/18 at 21:08 Insulin Aspart (Novolog Insulin Pen) NOVOLOG *MODERATE* ALGORITHM WITH MEALS BEDTIME SC Last administered on 08/26/18 12:16; Admin Dose 4 UNIT; Start 08/21/18 at 21:08 Oxycodone/ Acetaminophen (Endocet (10/ 325)) 1 tab Q4H PRN PO MODERATE PAIN LEVEL 4-6 Last administered on 08/27/18 03:33; Admin Dose 1 TAB; Start 08/21/18 at 21:08 Hydralazine HCl (Apresoline) 10 mg Q4H PRN IV SBP >150; Start 08/21/18 at 21:30 Acetaminophen (Tylenol Tab) 650 mg Q3H PRN PO ELEVATED TEMPERATURE Last administered on 08/26/18 15:46; Admin Dose 650 MG; Start 08/21/18 at 22:00 Apixaban (Eliquis) 5 mg BID PO Last administered on 08/27/18 10:39; Admin Dose 5 MG; Start 08/21/18 at 21:49 Ascorbic Acid (Vitamin C) 500 mg TID NGT Last administered on 08/27/18 08:51; Admin Dose 500 MG; Start 08/21/18 at 21:49 Carvedilol (Coreg) 12.5 mg BID PO Last administered on 08/27/18 08:51; Admin Dose 12.5 MG; Start 08/21/18 at 21:51 Docusate Sodium (Colace) 250 mg BID PO Last administered on 08/27/18 08:50; Admin Dose 250 MG; Start 08/21/18 at 21:51 Amlodipine Besylate (Norvasc) 5 mg DAILY PO Last administered on 08/27/18 08:51; Admin Dose 5 MG; Start 08/22/18 at 09:00 Magnesium Hydroxide (Milk Of Mag) 30 ml BID PRN PO CONSTIPATION Last administered on 08/22/18 17:19; Admin Dose 30 ML; Start 08/22/18 at 11:00 Lactulose (Enulose) 20 gm DAILY PRN PO CONSTIPATION Last administered on 08/22/18 12:44; Admin Dose 20 GM; Start 08/22/18 at 11:00 Bisacodyl (Dulcolax Supp) 10 mg DAILY PRN DC CONSTIPATION; Start 08/22/18 at 11:00 Ciprofloxacin (Cipro) 500 mg BID@ NGT Last administered on 5/8/19at 06:50; Admin Dose 500 MG; Start 08/23/18 at 06:36 Morphine Sulfate (morphine) 1 mg Q6H PRN IV SEVERE PAIN LEVEL 7-10; Start 08/23/18 at 07:00 Nitroglycerin (Nitroglycerin (Sl Tab) 0.4 Mg) 1 tab Q5M PRN SL ANGINA; Start 08/24/18 at 11:30 Gabapentin (Neurontin) 100 mg TID PO Last administered on 08/27/18at 08:50; Admin Dose 100 MG; Start 08/25/18 at 13:00 Polyethylene Glycol (Miralax) 17 gm TID PRN PO CONSTIPATION; Start 08/25/18 at 12:00 Insulin Glargine (Lantus) 28 units 2100 SC Last administered on 08/26/18at 22:11; Admin Dose 28 UNITS; Start 08/26/18 at 21:00 Hydromorphone HCl (Dilaudid) 1 mg Q3 PRN IV SEVERE PAIN LEVEL 7-10; Start 08/27/18 at 13:00 Hydromorphone HCl (Dilaudid) 1 mg ONCE ONCE IV ; Start 08/27/18 at 13:00; Stop 08/27/18 at 13:01; Status ALONDRA BARAJAS August 27, 2018 12:54
[2018-08-27 14:00] VITALS: BP 146/69; PULSE 62; RESP 20
[2018-08-27] MEDS ORDERED: DEXTROSE 5%-LR 1,000 ML IV SCH (16:00)
[2018-08-27 17:30] VITALS: BP 120/60; PULSE 70; RESP 18
[2018-08-27] MEDS: DEXTROSE 5%-0.9% NACL 1,000 ML IV SCH (18:00)
[2018-08-27 19:47] VITALS: BP 117/58; PULSE 77; RESP 18
--- NOTE | 2018-08-27 20:24 | CONS ---
DATE OF ADMISSION: 08/21/2018 DATE OF CONSULTATION: 08/27/2018 TYPE OF CONSULTATION: Psychological. REFERRING PHYSICIAN: Yariel Chery CONSULTING PSYCHOLOGIST: Marivel Licea, PhD REASON FOR CONSULTATION: This consultation was requested by Dr. Emigdio Chery in order to evaluate the cognitive and emotional functioning of this patient related to his present medical condition. HISTORY OF PRESENT ILLNESS: The patient is a 73-year-old male. The patient does have a history of multiple medical problems. The patient is noted to have severe coronary artery disease. The patient underwent a 5-vessel CABG on 08/13/2018. The patient had other numerous medical issues including acute respiratory failure which required ventilatory support. The patient was eventually cleared medically and sent to the acute rehabilitation unit for acute multidisciplinary rehabilitation. The patient does also have right lower extremity pain radiating from his back. The patient is motivated to get better and does want to return to his previous level of functioning. FAMILY AND SOCIAL HISTORY: The patient reports he lives in an apartment in [place] with his son and his [id number] and their 2 children, ages 20 and 15. The patient does want to return there after discharge. MEDICATIONS: The patient is currently not on any psychotropic medication. SUBSTANCE USE: The patient reports that he does not smoke. The patient reports he does not use alcohol or other drugs. MENTAL STATUS EXAMINATION: APPEARANCE: The patient was seen in his wheelchair. He appears to be of average height and obese. He is right-handed. The patient was on oxygen. BEHAVIOR: The patient was cooperative during the consultation. The patient did attempt to answer all questions presented to him by the interviewer. MOOD AND AFFECT: The patient reports that he is frustrated. The patient reports that he is also nervous, but he did not say the he has any depression or anxiety. PERCEPTION: The patient reports no hallucinations or delusions. The patient was alert to person, place, situation and time. MEMORY AND COGNITION: The patient's memory and cognition appear to have some slight impairments. This may be a result of language deficits as the patient was born in [place] and [place] was his first language. The patient was able to state the name of the hospital. The patient was able to state the month and the year. The patient was able to state the President of [facility]. The patient could not state who the governor of the [facility] is or the mayor of the [facility]. The patient was able to do 1 serial 7 subtraction from 100, then got 2 errors and could not correct. The patient was unable to spell "world" backwards, but that likely is a result of language issues. Overall, the patient does have some mild cognitive impairments, significantly so. INTELLIGENCE: Intelligence would appear to fall in the average range. INSIGHT: Fair. JUDGMENT: Fair. THOUGHT CONTENT: The patient is concerned about his present medical condition. The patient does want to recover and return home and function as well as he can. The patient is very frustrated about all his medical problems. The patient was describing some stomach upset while we were having consultation and was very concerned about this. Nursing staff was informed of this, as the patient was doing a good deal of stomach pain. DISCUSSION: The patient can likely benefit from some cognitive/behavioral psychotherapy while he is on the unit. Psychotherapy would focus on his underlying frustration about all his medical problems. The patient may be able to benefit from some memory and cognition training. The patient could possibly use the memory in a positive way for himself. DIAGNOSTIC IMPRESSION: F06.31, mood disorder due to multiple medical problems with depressive features. 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 Thank you very much, Dr. Emigdio Chery, for referring this individual. Please do not hesitate to call if you have additional questions. Dictated By: MARIVEL LICEA PHD RK/BOBBY Conf#: [id number] DID#: [id number] CC: YARIEL CHERY MD;*EndCC* MTDD
--- NOTE | 2018-08-27 20:33 | PN ---
Date/Time of Note Date/Time of Note DATE: 08/27/18 TIME: 20:29 Assessment/Plan VTE Prophylaxis Risk score (from Nsg)>0 risk: 8 SCD applied (from Ns): No SCD contraindicated: other (on.) Pharmacological prophylaxis: apixaban Lines/Catheters IV Catheter Type [facility]from [facility]): [place] [employer] line still needed: No Urinary Cath still in place: No Reason Cath still needed: urinary retention Assessment/Plan Assessment/Plan 1. Ischemic heart disease angina three-vessel coronary a. disease.s/p CABG x5 08/13/18: WINN to LAD, SVG to ramus sequence to obtuse marginal artery, SVG to PDA, SVG to left ventricular extension branch. Difficult case per Dr. Howell with poor targets.Vein harvesting and epiaortic scanning of the ascending aorta.CAD: s/p multiple prior PCIs. Cath 08/11/18 with multivessel disease. Now with elevated level of the troponin the second 1 is 1.1. We will get q. 6 hours x 2. The patient denies having the chest pain. 2. Hypertension with congestive heart failure diastolic- improved. 3. Diabetes mellitus type 2 blood sugar better controlled. Continue titration. 4. History of cholecystitis and pancreatitis 5. Acute on chronic kidney disease with baseline creatinine being 1.6 up to 3.5 came down to 2.05 yesterday and 1.95 today. Improved after hydration,now mildly dehydrated; 6. Dyslipidemia better controlled 7. History of nasal bleeding recurrent- stable. 8. Morbid obesity with snoring and apnea and daytime sleepiness 9. BPH with nocturia 10. Low back pain with radiculopathy 11. 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 Status post cataract ectomy 13. Diabetic nephropathy retinopathy and angiopathy and neuropathy. 14. Constipation- improved. 15. Grief reaction after the of her 16. Gastroesophageal reflux disease 17. Deep venous thrombosis of the left saphenous vein, 2-3 months ago;was on Eliquis 5 mg twice daily, stopped: since 08/11/2018. 18. Gastritis 19. COPD. Quit smoking 10years ago. 02sat now 95% with persistent cough. 20. History of nephrolithiasis. 21. Drop of hematocrit; s/p 2 units of prbc tx. 22. Drop of albumone and total protein and mild elevation of lft's. 21. Drop of hematocrit; s/p 2 units of prbc tx. further decline today; hematocrit being the 25 recheck tomorrow. 22. Drop of albumone and total protein and mild elevation of lft's. 23.Myopathy 24.Lethargy 25.Acute on chronic kidney disease, improving 26. Pancreatitis with pain. 27.Unstable gate Result Diagram: 08/27/18 0631 08/27/18 0631 Results 24hrs Laboratory Tests Test 08/26/18 22:08 08/27/18 06:31 08/27/18 07:54 08/27/18 12:52 Bedside Glucose 177 152 204 White Blood Count 8.5 Red Blood Count 2.90 L Hemoglobin 8.4 L Hematocrit 26.8 L Mean Corpuscular Volume 92.4 Mean Corpuscular 29.0 Hemoglobin Mean Corpuscular 31.3 L Hemoglobin Concent Red Cell Distribution 14.6 H Width Platelet Count 243 Mean Platelet Volume 11.7 H Immature Granulocytes % 0.500 H Neutrophils % 75.7 Lymphocytes % 11.8 L Monocytes % 9.4 Eosinophils % 2.2 Basophils % 0.4 Nucleated Red Blood 0.0 Cells % Immature Granulocytes # 0.040 H Neutrophils # 6.5 Lymphocytes # 1.0 Monocytes # 0.8 Eosinophils # 0.2 Basophils # 0.0 Nucleated Red Blood 0.0 Cells # Sodium Level 132 L Potassium Level 4.0 Chloride Level 93 L Carbon Dioxide Level 31 Anion Gap 8 Blood Urea Nitrogen 43 H Creatinine 2.16 H Est Glomerular Filtrat Rate mL/min Glucose Level 149 Calcium Level 8.4 Magnesium Level 2.4 Total Bilirubin 0.7 Direct Bilirubin 0.00 Indirect Bilirubin 0.7 Aspartate Amino 246 #H Transf (AST/SGOT) Alanine 235 H Aminotransferase (ALT/SG PT) Alkaline Phosphatase 300 #H Total Protein 6.3 Albumin 3.3 Globulin 3.00 Albumin/Globulin Ratio 1.10 Triglycerides Level 95 Cholesterol Level 51 L LDL Cholesterol, 15 Calculated HDL Cholesterol 17 L Cholesterol/HDL Ratio 3.0 Amylase Level 487 H Lipase 1665 H Test 08/27/18 18:14 Bedside Glucose 184 Subjective 24 Hr Interval Summary Free Text/Dictation Nausea vomiting epigastric pain on and off sometimes it lasts to 3 minutes sometimes almost 30 minutes. Anorexia I am unable to eat possible BM. Patient denies melena denies hematochezia. Subjective hx not possible: pt critical Constitutional: chills; No no complaints, No improved, No diaphoresis, No disoriented, No febrile, No poor po, No requiring IVF, No requiring O2, No other Eyes: redness; No no complaints, No pain, No discharge, No visual change, No other ENT: pain; No no complaints, No bleeding, No congestion, No discharge, No dysphagia, No sore throat, No other Respiratory: cough; No no complaints, No pain, No pleuritic pain, No shortness of breath, No sputum, No wheezing, No other Cardiovascular: edema, lightheadedness; No no complaints, No chest pain, No orthopenea, No palpitations, No paroxysmal nocturnal dyspnea, No other Gastrointestinal: pain, constipation, decreased appetite, flatus, nausea, pas [place] stool, vomiting; No no complaints, No blood, No diarrhea, No other Genitourinary: dysuria, flank pain; No no complaints, No bleeding, No discharge, No hematuria, No other Musculoskeletal: back pain, bone/joint pain, neck pain; No no complaints, No restricted range of motion, No swelling, No other Skin: erythema, pruritis, rash; No no complaints, No bruising, No laceration, No skin lesions, No other Neurologic: dizziness, headache; No no complaints, No confusion, No focal-weakness, No syncope, No seizure, No other Endocrine: dry skin; No no complaints, No polyuria, No polydypsia, No temp intolerance, No other Psychological: no complaints, confusion, depression; No nl mood/affect, No anxiety, No suicidal, No other Immunologic: No no complaints, No immunodeficiency, No pruritis, No rhinitis, No urticaria, No other Exam/Review of Systems Exam Vitals Vital Signs Date Temp Pulse Resp B/P (MAP) Pulse Ox O2 O2 Flow FiO2 Time Delivery Rate 08/27/18 3.0 20:21 08/27/18 97.8 77 18 117/58 95 Nasal 19:47 (77) Cannula 08/25/18 21 19:51 Intake and Output 08/26/18 08/26/18 08/27/18 1515:00 23:00 07:00 IntakeIntake Total 1070 ml 300 ml OutputOutput Total 460 ml 750 ml BalanceBalance 610 ml -450 ml Constitutional: alert, oriented, well developed, distress, frail, obese Psych: nl mood/affect, anxiety, confusion, depression; No no complaints, No suicidal, No other Head: normocephalic, atraumatic; No lacerations, No hematomas, No other Eyes: EOMI, nl lids, PERRL, icteric; No nl conjunctiva, No nl sclera, No fundi, disc, No other ENMT: nl lips & teeth, nl nasal mucosa & septum; No nl external ears & nose, No mucosa pink and moist, No intubated, No tympanic membranes, No other Neck: jvd, bruits, thyromegaly, nuchal rigidity; No supple, No non-tender, No other Respiratory: diminished breath sounds; No clear to auscultation, No normal air movement, No congested cough, No crackles/rales, No intercostal retraction, No labored breathing, No re spirations, No tactile fremitus, No wheezing, No other Cardiovascular: regular rate and rhythm, nl pulses, bruits, edema, systolic murmur Gastrointestinal: bowel sounds, distended, surgical scars, tender, other (Very tender epigastric region with mild rebound more in the right lower area pain is also prominent in the mid abdomen and around the umbilicus left lower quadrant pain less.); No soft, No nl liver, spleen, No non-tender, No ascites, No firm, No hepatomegaly, No mass, No rebound or guarding, No splenomegaly Genitourinary - Male: nl penis, nl scrotum Musculoskeletal: joint tenderness, muscle tone, muscle weakness; No nl extremities to inspection, No nl gait and stance, No range of motion, No spine non-tender, No swelling, No other Extremities: edema; No normal pulses, No calf tenderness, No cyanosis, No clubbing, No pitting pedal edema, No palpable cord, No tenderness, No other 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: [employer] II-XII intact, confused, numbness; No nl mental status, No nl speech, No nl strength, No DTR's symmetric, No focal weakness, No lethargic, No reflexes, No unresponsive, No other Skin: nl turgor; No rash or lesions, No diaphoresis, No ecchymosis, No laceration, No puncture, No other Lymph: No nl lymph nodes, No enlarged, No nontender, No other Results Results 24hrs Laboratory Tests Test 08/26/18 22:08 08/27/18 06:31 08/27/18 07:54 08/27/18 12:52 Bedside Glucose 177 152 204 White Blood Count 8.5 Red Blood Count 2.90 L Hemoglobin 8.4 L Hematocrit 26.8 L Mean Corpuscular Volume 92.4 Mean Corpuscular 29.0 Hemoglobin Mean Corpuscular 31.3 L Hemoglobin Concent Red Cell Distribution 14.6 H Width Platelet Count 243 Mean Platelet Volume 11.7 H Immature Granulocytes % 0.500 H Neutrophils % 75.7 Lymphocytes % 11.8 L Monocytes % 9.4 Eosinophils % 2.2 Basophils % 0.4 Nucleated Red Blood 0.0 Cells % Immature Granulocytes # 0.040 H Neutrophils # 6.5 Lymphocytes # 1.0 Monocytes # 0.8 Eosinophils # 0.2 Basophils # 0.0 Nucleated Red Blood 0.0 Cells # Sodium Level 132 L Potassium Level 4.0 Chloride Level 93 L Carbon Dioxide Level 31 Anion Gap 8 Blood Urea Nitrogen 43 H Creatinine 2.16 H Est Glomerular Filtrat Rate mL/min Glucose Level 149 Calcium Level 8.4 Magnesium Level 2.4 Total Bilirubin 0.7 Direct Bilirubin 0.00 Indirect Bilirubin 0.7 Aspartate Amino 246 #H Transf (AST/SGOT) Alanine 235 H Aminotransferase (ALT/SG PT) Alkaline Phosphatase 300 #H Total Protein 6.3 Albumin 3.3 Globulin 3.00 Albumin/Globulin Ratio 1.10 Triglycerides Level 95 Cholesterol Level 51 L LDL Cholesterol, 15 Calculated HDL Cholesterol 17 L Cholesterol/HDL Ratio 3.0 Amylase Level 487 H Lipase 1665 H Test 08/27/18 18:14 Bedside Glucose 184 Medications Medication Current Medications Ondansetron HCl (Zofran Inj) 4 mg Q6H PRN IV NAUSEA AND/OR VOMITING; Start 08/21/18 at 21:08 Albumin Human 250 ml @ 500 mls/hr PRN PRN IV CVP< 8, OR SBP<90; Start 08/21/18 at 21:08 Clopidogrel Bisulfate (plaVIX) 75 mg DAILY NGT Last administered on 08/27/18at 08:50; Admin Dose 75 MG; Start 08/21/18 at 21:08 Levalbuterol (Xopenex Neb) 1.25 mg Q6H RESP THERAPY HHN Last administered on 08/27/18 01:32; Admin Dose 1.25 MG; Start 08/21/18 at 21:08 Ipratropium [place] (Atrovent 0.02% (Neb)) 0.5 mg Q6H RESP THERAPY HHN Last administered on 08/27/18 01:32; Admin Dose 0.5 MG; Start 08/21/18 at 21:08 Diagnostic Test (Pha) (Accu-Chek) 1 ea 02 XX Last administered on 08/23/18 02:00; Admin Dose 1 EA; Start 08/21/18 at 21:08 Miscellaneous Information 1 ea NOTE XX ; Start 08/21/18 at 21:08 Glucose (Glutose) 15 gm Q15M PRN PO DECREASED GLUCOSE; Start 08/21/18 at 21:08 Glucose (Glutose) 22.5 gm Q15M PRN PO DECREASED GLUCOSE; Start 08/21/18 at 21:08 Dextrose (D50w Syringe) 25 ml Q15M PRN IV DECREASED GLUCOSE; Start 08/21/18 at 21:08 Dextrose (D50w Syringe) 50 ml Q15M PRN IV DECREASED GLUCOSE; Start 08/21/18 at 21:08 Glucagon (Glucagen) 1 mg Q15M PRN IM DECREASED GLUCOSE; Start 08/21/18 at 21:08 Glucose (Glutose) 15 gm Q15M PRN BUCCAL DECREASED GLUCOSE; Start 08/21/18 at 21:08 Furosemide (Lasix) 40 mg DAILY PO Last administered on 08/27/18 10:40; Admin Dose 40 MG; Start 08/21/18 at 21:08 Famotidine (Pepcid) 20 mg DAILY PO Last administered on 08/27/18 08:50; Admin Dose 20 MG; Start 08/21/18 at 21:08 Insulin Aspart (Novolog Insulin Pen) 10 unit WITH MEALS SC Last administered on 08/27/18 08:45; Admin Dose 10 UNIT; Start 08/21/18 at 21:08 Insulin Aspart (Novolog Insulin Pen) NOVOLOG *MODERATE* ALGORITHM WITH MEALS BEDTIME SC Last administered on 08/26/18 12:16; Admin Dose 4 UNIT; Start 08/21/18 at 21:08 Oxycodone/ Acetaminophen (Endocet (10/ 325)) 1 tab Q4H PRN PO MODERATE PAIN LEVEL 4-6 Last administered on 08/27/18 03:33; Admin Dose 1 TAB; Start 08/21/18 at 21:08 Hydralazine HCl (Apresoline) 10 mg Q4H PRN IV SBP >150; Start 08/21/18 at 21:30 Acetaminophen (Tylenol Tab) 650 mg Q3H PRN PO ELEVATED TEMPERATURE Last administered on 08/26/18 15:46; Admin Dose 650 MG; Start 08/21/18 at 22:00 Ascorbic Acid (Vitamin C) 500 mg TID NGT Last administered on 08/27/18 08:51; Admin Dose 500 MG; Start 08/21/18 at 21:49 Carvedilol (Coreg) 12.5 mg BID PO Last administered on 08/27/18 08:51; Admin Dose 12.5 MG; Start 08/21/18 at 21:51 Docusate Sodium (Colace) 250 mg BID PO Last administered on 08/27/18 08:50; Admin Dose 250 MG; Start 08/21/18 at 21:51 Amlodipine Besylate (Norvasc) 5 mg DAILY PO Last administered on 08/27/18 08:5 1; Admin Dose 5 MG; Start 08/22/18 at 09:00 Magnesium Hydroxide (Milk Of Mag) 30 ml BID PRN PO CONSTIPATION Last administered on 08/22/18 17:19; Admin Dose 30 ML; Start 08/22/18 at 11:00 Lactulose (Enulose) 20 gm DAILY PRN PO CONSTIPATION Last administered on 08/22/18 12:44; Admin Dose 20 GM; Start 08/22/18 at 11:00 Bisacodyl (Dulcolax Supp) 10 mg DAILY PRN HI CONSTIPATION; Start 08/22/18 at 11:00 Ciprofloxacin (Cipro) 500 mg BID@,18 NGT Last administered on 08/27/18 06:50; Admin Dose 500 MG; Start 08/23/18 at 06:36 Morphine Sulfate (morphine) 1 mg Q6H PRN IV SEVERE PAIN LEVEL 7-10; Start at 07:00 Nitroglycerin (Nitroglycerin (Sl Tab) 0.4 Mg) 1 tab Q5M PRN SL ANGINA; Start 08/24/18 at 11:30 Gabapentin (Neurontin) 100 mg TID PO Last administered on 08/27/18 08:50; Admin Dose 100 MG; Start 08/25/18 at 13:00 Polyethylene Glycol (Miralax) 17 gm TID PRN PO CONSTIPATION; Start 08/25/18 at 12:00 Insulin Glargine (Lantus) 28 units 2100 SC Last administered on 08/26/18 22:11; Admin Dose 28 UNITS; Start 08/26/18 at 21:00 Hydromorphone HCl (Dilaudid) 1 mg Q3 PRN IV SEVERE PAIN LEVEL 7-10 Last administered on 08/27/18 17:54; Admin Dose 1 MG; Start 08/27/18 at 13:00 Dextrose/Sodium Chloride 1,000 ml @ 80 mls/hr [id number] IV Last administered on 08/27/18 18:00; Admin Dose 80 MLS/HR; Start 08/27/18 at 16:00; Stop 08/29/18 at 16:00 NERIS BROTHERS MD August 27, 2018 20:33
[2018-08-27] MEDS: INSULIN GLARGINE [LANTus] (100 UNITS/ML) SYG SC SCH (22:17)
[2018-08-28] MEDS: IPRATROPIUM (NEB) 0.5 MG/2.5 ML AMP HHN SCH ×4 (01:13→20:00)
[2018-08-28] MEDS: LEVALBUTEROL (NEB) 1.25 MG/0.5 ML AMP HHN SCH ×4 (01:13→20:00)
[2018-08-28 02:00] VITALS: BP 113/63; PULSE 68; RESP 18
[2018-08-28] MEDS: ACCU-CHEK XX SCH (02:30)
[2018-08-28] MEDS: OXYCODONE/ACETAMINOPHEN (10/325) TAB PO PRN (04:14)
[2018-08-28] MEDS: DEXTROSE 5%-0.9% NACL 1,000 ML IV SCH (04:15)
[2018-08-28] MEDS: CIPROFLOXACIN 500 MG TAB NGT SCH ×2 (06:42→17:48)
[2018-08-28 07:00] VITALS: BP 110/54; PULSE 54; RESP 18
[2018-08-28] MEDS: INSULIN ASPART [NOVOLOG] 3 ML PEN SC SCH ×7 (08:12→20:45)
[2018-08-28] MEDS: HYDROmorphONE 1 MG/ML SYG IV PRN ×4 (08:53→17:37)
[2018-08-28 09:00] VITALS: BP 105/55
[2018-08-28] MEDS: FAMOTIDINE 20 MG TAB PO SCH (09:00)
[2018-08-28] MEDS: AMLODIPINE 5 MG TAB PO SCH (09:00)
[2018-08-28] MEDS: ASCORBIC ACID 500 MG TAB NGT SCH ×3 (09:08→20:36)
[2018-08-28] MEDS: GABAPENTIN 100 MG CAP PO SCH ×3 (09:08→20:36)
[2018-08-28] MEDS: DOCUSATE SODIUM 250 MG CAP PO SCH ×2 (09:08→20:36)
[2018-08-28] MEDS: CLOPIDOGREL 75 MG TAB NGT SCH (09:13)
[2018-08-28] MEDS: FUROSEMIDE 40 MG TAB PO SCH (09:13)
--- NOTE | 2018-08-28 09:28 | CONS ---
Assessment/Plan Assessment/Plan Assessment/Plan (Daily) 1. acute kidney injury vs possible baseline CKD II due to ishcemic ATN + Hemodynamics 2. 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 H/o HTN 4. H/o HL 5. H/o DM II 6. H/o CAD with previous stent placement 7. Anemia of chronic disease with iron deficiency Plan: BUN/Cr slightly better to 37/1.8, electrolytes stable - On lasix 40mg po daily, will give lasix 20mg iV x 1 dose ( extra dose) today amlodipine 5 mg po daily, Eliquis 5mg pO BID will follow up Consultation Date/Type/Reason Admit Date/Time August 21, 2018 at 18:31 Initial Consult Date Type of Consult NEPHROLOGY Requesting Provider: NERIS BROTHERS MD Date/Time of Note DATE: 08/28/18 TIME: 09:28 Exam/Review of Systems Exam Vitals Vital Signs Date Temp Pulse Resp B/P (MAP) Pulse Ox O2 O2 Flow FiO2 Time Delivery Rate 08/28/18 76 20 94 Nasal 3.0 08:31 Cannula 08/28/18 98.3 110/54 07:00 (72) 08/25/18 21 19:51 Intake and Output 08/27/18 08/27/18 08/28/18 1515:00 23:00 07:00 IntakeIntake Total 460 ml 2140 ml OutputOutput Total 300 ml 500 ml BalanceBalance 160 ml 1640 ml Results Result Diagram: 08/28/18 0752 08/28/18 0752 Results 24hrs Laboratory Tests Test 08/27/18 12:52 08/27/18 18:14 08/27/18 22:06 08/28/18 03:02 Bedside Glucose 204 184 208 220 Test 08/28/18 07:52 08/28/18 08:10 White Blood Count 8.0 Red Blood Count 2.79 L Hemoglobin 8.1 L Hematocrit 25.5 L Mean Corpuscular Volume 91.4 Mean Corpuscular 29.0 Hemoglobin Mean Corpuscular 31.8 L Hemoglobin Concent Red Cell Distribution 14.6 H Width Platelet Count 219 Mean Platelet Volume 11.7 H Immature Granulocytes % 0.600 H Neutrophils % 73.8 Lymphocytes % 12.1 L Monocytes % 11.9 H Eosinophils % 1.2 Basophils % 0.4 Nucleated Red Blood 0.0 Cells % Immature Granulocytes # 0.050 H Neutrophils # 5.9 Lymphocytes # 1.0 Monocytes # 1.0 H Eosinophils # 0.1 Basophils # 0.0 Nucleated Red Blood 0.0 Cells # Sodium Level 132 L Potassium Level 3.9 Chloride Level 96 L Carbon Dioxide Level 29 Anion Gap 7 Blood Urea Nitrogen 37 H Creatinine 1.83 H Est Glomerular Filtrat Rate mL/min Glucose Level 208 Calcium Level 7.9 L Total Bilirubin 0.4 Direct Bilirubin 0.00 Indirect Bilirubin 0.4 Aspartate Amino 83 #H Transf (AST/SGOT) Alanine 135 H Aminotransferase (ALT/SG PT) Alkaline Phosphatase 213 H Total Protein 5.8 L Albumin 3.0 L Globulin 2.80 Albumin/Globulin Ratio 1.07 Amylase Level 102 # Lipase 277 Bedside Glucose 215 Medications Medication Current Medications Ondansetron HCl (Zofran Inj) 4 mg Q6H PRN IV NAUSEA AND/OR VOMITING; Start 08/21/18 at 21:08 Albumin Human 250 ml @ 500 mls/hr PRN PRN IV CVP< 8, OR SBP<90; Start 08/21/18 at 21:08 Clopidogrel Bisulfate (plaVIX) 75 mg DAILY NGT Last administered on 08/28/18 09:13; Admin Dose 75 MG; Start 08/21/18 at 21:08 Levalbuterol (Xopenex Neb) 1.25 mg Q6H RESP THERAPY HHN Last administered on 08/28/18 08:21; Admin Dose 1.25 MG; Start 08/21/18 at 21:08 Ipratropium [place] (Atrovent 0.02% (Neb)) 0.5 mg Q6H RESP THERAPY HHN Last administered on 08/28/18 08:21; Admin Dose 0.5 MG; Start 08/21/18 at 21:08 Diagnostic Test (Pha) (Accu-Chek) 1 ea 02 XX Last administered on 08/28/18 02:30; Admin Dose 1 EA; Start 08/21/18 at 21:08 Miscellaneous Information 1 ea NOTE XX ; Start 08/21/18 at 21:08 Glucose (Glutose) 15 gm Q15M PRN PO DECREASED GLUCOSE; Start 08/21/18 at 21:08 Glucose (Glutose) 22.5 gm Q15M PRN PO DECREASED GLUCOSE; Start 08/21/18 at 21:08 Dextrose (D50w Syringe) 25 ml Q15M PRN IV DECREASED GLUCOSE; Start 08/21/18 at 21:08 Dextrose (D50w Syringe) 50 ml Q15M PRN IV DECREASED GLUCOSE; Start 08/21/18 at 21:08 Glucagon (Glucagen) 1 mg Q15M PRN IM DECREASED GLUCOSE; Start 08/21/18 at 21:08 Glucose (Glutose) 15 gm Q15M PRN BUCCAL DECREASED GLUCOSE; Start 08/21/18 at 21:08 Furosemide (Lasix) 40 mg DAILY PO Last administered on 08/28/18 09:13; Admin Dose 40 MG; Start 08/21/18 at 21:08 Famotidine (Pepcid) 20 mg DAILY PO Last administered on 08/27/18 08:50; Admin Dose 20 MG; Start 08/21/18 at 21:08 Insulin Aspart (Novolog Insulin Pen) 10 unit WITH MEALS SC Last administered on 08/28/18 08:12; Admin Dose 10 UNIT; Start 08/21/18 at 21:08 Insulin Aspart (Novolog Insulin Pen) NOVOLOG *MODERATE* ALGORITHM WITH MEALS BEDTIME SC Last administered on 08/28/18 08:13; Admin Dose 4 UNIT; Start 08/21/18 at 21:08 Oxycodone/ Acetaminophen (Endocet (10/ 325)) 1 tab Q4H PRN PO MODERATE PAIN LEVEL 4-6 Last administered on 08/28/18 04:14; Admin Dose 1 TAB; Start 08/21/18 at 21:08 Hydralazine HCl (Apresoline) 10 mg Q4H PRN IV SBP >150; Start 08/21/18 at 21:30 Acetaminophen (Tylenol Tab) 650 mg Q3H PRN PO ELEVATED TEMPERATURE Last administered on 08/26/18 15:46; Admin Dose 650 MG; Start 08/21/18 at 22:00 Ascorbic Acid (Vitamin C) 500 mg TID NGT Last administered on 08/28/18 09:08; Admin Dose 500 MG; Start 08/21/18 at 21:49 Carvedilol (Coreg) 12.5 mg BID PO Last administered on 08/27/18 22:03; Admin Dose 12.5 MG; Start 08/21/18 at 21:51 Docusate Sodium (Colace) 250 mg BID PO Last administered on 08/28/18 09:08; Ad min Dose 250 MG; Start 08/21/18 at 21:51 Amlodipine Besylate (Norvasc) 5 mg DAILY PO Last administered on 08/27/18 08:51; Admin Dose 5 MG; Start 08/22/18 at 09:00 Magnesium Hydroxide (Milk Of Mag) 30 ml BID PRN PO CONSTIPATION Last administered on 08/22/18 17:19; Admin Dose 30 ML; Start 08/22/18 at 11:00 Lactulose (Enulose) 20 gm DAILY PRN PO CONSTIPATION Last administered on 08/22/18 12:44; Admin Dose 20 GM; Start 08/22/18 at 11:00 Bisacodyl (Dulcolax Supp) 10 mg DAILY PRN IN CONSTIPATION; Start 08/22/18 at 11:00 Ciprofloxacin (Cipro) 500 mg BID@06,18 NGT Last administered on 08/28/18 06:42; Admin Dose 500 MG; Start 08/23/18 at 06:36 Morphine Sulfate (morphine) 1 mg Q6H PRN IV SEVERE PAIN LEVEL 7-10; Start 08/23/18 at 07:00 Nitroglycerin (Nitroglycerin (Sl Tab) 0.4 Mg) 1 tab Q5M PRN SL ANGINA; Start 08/24/18 at 11:30 Gabapentin (Neurontin) 100 mg TID PO Last administered on 08/28/18 09:08; Admin Dose 100 MG; Start 08/25/18 at 13:00 Polyethylene Glycol (Miralax) 17 gm TID PRN PO CONSTIPATION; Start 08/25/18 at 12:00 Insulin Glargine (Lantus) 28 units 2100 SC Last administered on 08/27/18 22:17; Admin Dose 28 UNITS; Start 08/26/18 at 21:00 Hydromorphone HCl (Dilaudid) 1 mg Q3 PRN IV SEVERE PAIN LEVEL 7-10 Last administered on 08/28/18 08:53; Admin Dose 1 MG; Start 08/27/18 at 13:00 Dextrose/Sodium Chloride 1,000 ml @ 120 mls/hr Q8H20M IV Last administered on 08/28/18 04:15; Admin Dose 120 MLS/HR; Start 08/27/18 at 16:00; Stop 08/29/18 at 16:00 DARRYL SOOD MD August 28, 2018 09:28
--- NOTE | 2018-08-28 09:47 | CONS ---
Assessment/Plan Assessment/Plan Hospital Course (Demo Recall) Pancreatitis:had an episode few months ago and was hospitalized at [facility]. No gallstones at that time. Not a drinker, TG ok in the past. Resolving Transaminitis: due to above. Improving Acute on chronic diastolic CHF: Now worse after starting IVF for pancreatitis NSTEMI: residual trop elevation likely from CABG. Trend does not suggest ACS. No symptoms. Ankle pain: XR without fracture. Improving Acute on chronic renal failure: Cr baseline 1.6. Worse after CABG.Now ~2 Cardiogenic shock: Transient post op Acute respiratory failure: s/p extubation 08/16 Anemia: from operative blood loss. Required one unit. No active bleeding s/p CABG x5 08/13/18: WINN to LAD, SVG to ramus sequence to obtuse marginal artery, SVG to PDA, SVG to left ventricular extension branch. Difficult case per Dr. Howell with poor targets. CAD: s/p multiple prior PCIs. Cath 08/11/18 with multivessel disease. s/p CABG above Recent left femoral DVT: on Eliquis as outpt. DM HT HL -d/c IV fluids -agree with IV lasix 20mg x 1 -hold Eliquis for now to avoid hemorrhagic pancreatitis. Possibly restart tomorrow -lipitor 40mg on hold due to transaminitis. Restart tomorrow if continues to improve -lasix 40mg PO daily -continue plavix -coreg 12.5mg BID -amlodipine 5mg Consultation Date/Type/Reason Admit Date/Time August 21, 2018 at 18:31 Initial Consult Date Type of Consult Cardiology Requesting Provider: NERIS BROTHERS MD Date/Time of Note DATE: 08/28/18 TIME: 09:45 24 HR Interval Summary Free Text/Dictation Abdominal pain much improved. Lipase normalized and LFTs improving Has a cough and mild SOB. Exam/Review of Systems Vital Signs Vitals Vital Signs Date Temp Pulse Resp B/P (MAP) Pulse Ox O2 O2 Flow FiO2 Time Delivery Rate 08/28/18 76 20 94 Nasal 3.0 08:31 Cannula 08/28/18 98.3 110/54 07:00 (72) 08/25/18 21 19:51 Intake and Output 08/27/18 08/27/18 08/28/18 1515:00 23:00 07:00 IntakeIntake Total 460 ml 2140 ml OutputOutput Total 300 ml 500 ml BalanceBalance 160 ml 1640 ml Exam Constitutional: alert, oriented Head: normocephalic, atraumatic Neck: jvd (9-10cm) Respiratory: diminished breath sounds; No clear to auscultation Cardiovascular: regular rate and rhythm, edema (1+) Gastrointestinal: soft, non-tender; No distended 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: nl mental status, nl speech Labs Result Diagram: 08/28/18 0752 08/28/18 0752 Results 24hrs Laboratory Tests Test 08/27/18 12:52 08/27/18 18:14 08/27/18 22:06 08/28/18 03:02 Bedside Glucose 204 184 208 220 Test 08/28/18 07:52 08/28/18 08:10 White Blood Count 8.0 Red Blood Count 2.79 L Hemoglobin 8.1 L Hematocrit 25.5 L Mean Corpuscular Volume 91.4 Mean Corpuscular 29.0 Hemoglobin Mean Corpuscular 31.8 L Hemoglobin Concent Red Cell Distribution 14.6 H Width Platelet Count 219 Mean Platelet Volume 11.7 H Immature Granulocytes % 0.600 H Neutrophils % 73.8 Lymphocytes % 12.1 L Monocytes % 11.9 H Eosinophils % 1.2 Basophils % 0.4 Nucleated Red Blood 0.0 Cells % Immature Granulocytes # 0.050 H Neutrophils # 5.9 Lymphocytes # 1.0 Monocytes # 1.0 H Eosinophils # 0.1 Basophils # 0.0 Nucleated Red Blood 0.0 Cells # Sodium Level 132 L Potassium Level 3.9 Chloride Level 96 L Carbon Dioxide Level 29 Anion Gap 7 Blood Urea Nitrogen 37 H Creatinine 1.83 H Est Glomerular Filtrat Rate mL/min Glucose Level 208 Calcium Level 7.9 L Total Bilirubin 0.4 Direct Bilirubin 0.00 Indirect Bilirubin 0.4 Aspartate Amino 83 #H Transf (AST/SGOT) Alanine 135 H Aminotransferase (ALT/SG PT) Alkaline Phosphatase 213 H Total Protein 5.8 L Albumin 3.0 L Globulin 2.80 Albumin/Globulin Ratio 1.07 Amylase Level 102 # Lipase 277 Bedside Glucose 215 Medications Medications Current Medications Ondansetron HCl (Zofran Inj) 4 mg Q6H PRN IV NAUSEA AND/OR VOMITING; Start 08/21/18 at 21:08 Albumin Human 250 ml @ 500 mls/hr PRN PRN IV CVP< 8, OR SBP<90; Start 08/21/18 at 21:08 Clopidogrel Bisulfate (plaVIX) 75 mg DAILY NGT Last administered on 08/28/18 09:13; Admin Dose 75 MG; Start 08/21/18 at 21:08 Levalbuterol (Xopenex Neb) 1.25 mg Q6H RESP THERAPY HHN Last administered on 08/28/18 08:21; Admin Dose 1.25 MG; Start 08/21/18 at 21:08 Ipratropium [place] (Atrovent 0.02% (Neb)) 0.5 mg Q6H RESP THERAPY HHN Last administered on 08/28/18 08:21; Admin Dose 0.5 MG; Start 08/21/18 at 21:08 Diagnostic Test (Pha) (Accu-Chek) 1 ea 02 XX Last administered on 08/28/18at 02:30; Admin Dose 1 EA; Start 08/21/18 at 21:08 Miscellaneous Information 1 ea NOTE XX ; Start 08/21/18 at 21:08 Glucose (Glutose) 15 gm Q15M PRN PO DECREASED GLUCOSE; Start 08/21/18 at 21:08 Glucose (Glutose) 22.5 gm Q15M PRN PO DECREASED GLUCOSE; Start 08/21/18 at 21:08 Dextrose (D50w Syringe) 25 ml Q15M PRN IV DECREASED GLUCOSE; Start 08/21/18 at 21:08 Dextrose (D50w Syringe) 50 ml Q15M PRN IV DECREASED GLUCOSE; Start 08/21/18 at 21:08 Glucagon (Glucagen) 1 mg Q15M PRN IM DECREASED GLUCOSE; Start 08/21/18 at 21:08 Glucose (Glutose) 15 gm Q15M PRN BUCCAL DECREASED GLUCOSE; Start 08/21/18 at 21:08 Furosemide (Lasix) 40 mg DAILY PO Last administered on 08/28/18 09:13; Admin Dose 40 MG; Start 08/21/18 at 21:08 Famotidine (Pepcid) 20 mg DAILY PO Last administered on 08/27/18 08:50; Admin Dose 20 MG; Start 08/21/18 at 21:08 Insulin Aspart (Novolog Insulin Pen) 10 unit WITH MEALS SC Last administered on 08/28/18 08:12; Admin Dose 10 UNIT; Start 08/21/18 at 21:08 Insulin Aspart (Novolog Insulin Pen) NOVOLOG *MODERATE* ALGORITHM WITH MEALS BEDTIME SC Last administered on 08/28/18 08:13; Admin Dose 4 UNIT; Start 08/21/18 at 21:08 Oxycodone/ Acetaminophen (Endocet (10/ 325)) 1 tab Q4H PRN PO MODERATE PAIN LEVEL 4-6 Last administered on 08/28/18 04:14; Admin Dose 1 TAB; Start 08/21/18 at 21:08 Hydralazine HCl (Apresoline) 10 mg Q4H PRN IV SBP >150; Start 08/21/18 at 21:30 Acetaminophen (Tylenol Tab) 650 mg Q3H PRN PO ELEVATED TEMPERATURE Last administered on 08/26/18 15:46; Admin Dose 650 MG; Start 08/21/18 at 22:00 Ascorbic Acid (Vitamin C) 500 mg TID NGT Last administered on 08/28/18 09:08; Admin Dose 500 MG; Start 08/21/18 at 21:49 Carvedilol (Coreg) 12.5 mg BID PO Last administered on 08/27/18 22:03; Admin Dose 12.5 MG; Start 08/21/18 at 21:51 Docusate Sodium (Colace) 250 mg BID PO Last administered on 08/28/18 09:08; Admin Dose 250 MG; Start 08/21/18 at 21:51 Amlodipine Besylate (Norvasc) 5 mg DAILY PO Last administered on 08/27/18 08:51; Admin Dose 5 MG; Start 08/22/18 at 09:00 Magnesium Hydroxide (Milk Of Mag) 30 ml BID PRN PO CONSTIPATION Last administered on 08/22/18 17:19; Admin Dose 30 ML; Start 08/22/18 at 11:00 Lactulose (Enulose) 20 gm DAILY PRN PO CONSTIPATION Last administered on 08/22/18 12:44; Admin Dose 20 GM; Start 08/22/18 at 11:00 Bisacodyl (Dulcolax Supp) 10 mg DAILY PRN [place] CONSTIPATION; Start 08/22/18 at 11:00 Ciprofloxacin (Cipro) 500 mg BID@18 NGT Last administered on 5/9/19at 06:42; Admin Dose 500 MG; Start 08/23/18 at 06:36 Morphine Sulfate (morphine) 1 mg Q6H PRN IV SEVERE PAIN LEVEL 7-10; Start 08/23/18 at 07:00 Nitroglycerin (Nitroglycerin (Sl Tab) 0.4 Mg) 1 tab Q5M PRN SL ANGINA; Start 08/24/18 at 11:30 Gabapentin (Neurontin) 100 mg TID PO Last administered on 08/28/18at 09:08; Admin Dose 100 MG; Start 08/25/18 at 13:00 Polyethylene Glycol (Miralax) 17 gm TID PRN PO CONSTIPATION; Start 08/25/18 at 12:00 Insulin Glargine (Lantus) 28 units 2100 SC Last administered on 08/27/18at 22:17; Admin Dose 28 UNITS; Start 08/26/18 at 21:00 Hydromorphone HCl (Dilaudid) 1 mg Q3 PRN IV SEVERE PAIN LEVEL 7-10 Last administered on 08/28/18at 08:53; Admin Dose 1 MG; Start 08/27/18 at 13:00 Furosemide (Lasix) 20 mg ONCE ONCE IV ; Start 08/28/18 at 15:00; Stop 08/28/18 at 15:01 ALONDRA GILBERT August 28, 2018 09:47
[2018-08-28 10:00] VITALS: BP 112/55; PULSE 65
--- NOTE | 2018-08-28 13:12 | PN ---
Date/Time of Note Date/Time of Note DATE: 08/28/18 TIME: 13:11 Subjective Feeling slightly better Objective Vital Signs Date Temp Pulse Resp B/P (MAP) Pulse Ox O2 O2 Flow FiO2 Time Delivery Rate 08/28/18 3.0 13:08 08/28/18 65 112/55 10:00 (74) 08/28/18 20 94 Nasal 08:31 Cannula 08/28/18 98.3 07:00 08/25/18 21 19:51 Intake and Output 08/27/18 08/27/18 08/28/18 1515:00 23:00 07:00 IntakeIntake Total 460 ml 2140 ml OutputOutput Total 300 ml 500 ml BalanceBalance 160 ml 1640 ml Exam pulm-cta mod 12 feet Results/Medications Result Diagram: 08/28/18 0752 08/28/18 0752 Results 24 hrs Laboratory Tests Test 08/27/18 18:14 08/27/18 22:06 08/28/18 03:02 08/28/18 07:52 Bedside Glucose 184 208 220 White Blood Count 8.0 Red Blood Count 2.79 L Hemoglobin 8.1 L Hematocrit 25.5 L Mean Corpuscular Volume 91.4 Mean Corpuscular 29.0 Hemoglobin Mean Corpuscular 31.8 L Hemoglobin Concent Red Cell Distribution 14.6 H Width Platelet Count 219 Mean Platelet Volume 11.7 H Immature Granulocytes % 0.600 H Neutrophils % 73.8 Lymphocytes % 12.1 L Monocytes % 11.9 H Eosinophils % 1.2 Basophils % 0.4 Nucleated Red Blood 0.0 Cells % Immature Granulocytes # 0.050 H Neutrophils # 5.9 Lymphocytes # 1.0 Monocytes # 1.0 H Eosinophils # 0.1 Basophils # 0.0 Nucleated Red Blood 0.0 Cells # Sodium Level 132 L Potassium Level 3.9 Chloride Level 96 L Carbon Dioxide Level 29 Anion Gap 7 Blood Urea Nitrogen 37 H Creatinine 1.83 H Est Glomerular Filtrat Rate mL/min Glucose Level 208 Calcium Level 7.9 L Total Bilirubin 0.4 Direct Bilirubin 0.00 Indirect Bilirubin 0.4 Aspartate Amino 83 #H Transf (AST/SGOT) Alanine 135 H Aminotransferase (ALT/SG PT) Alkaline Phosphatase 213 H Total Protein 5.8 L Albumin 3.0 L Globulin 2.80 Albumin/Globulin Ratio 1.07 Amylase Level 102 # Lipase 277 Test 08/28/18 08:10 08/28/18 11:56 Bedside Glucose 215 204 Medications Current Medications Ondansetron HCl (Zofran Inj) 4 mg Q6H PRN IV NAUSEA AND/OR VOMITING; Start 08/21/18 at 21:08 Albumin Human 250 ml @ 500 mls/hr PRN PRN IV CVP< 8, OR SBP<90; Start 08/21/18 at 21:08 Clopidogrel Bisulfate (plaVIX) 75 mg DAILY NGT Last administered on 08/28/18at 09:13; Admin Dose 75 MG; Start 08/21/18 at 21:08 Levalbuterol (Xopenex Neb) 1.25 mg Q6H RESP THERAPY HHN Last administered on 08/28/18 08:21; Admin Dose 1.25 MG; Start 08/21/18 at 21:08 Ipratropium [place] (Atrovent 0.02% (Neb)) 0.5 mg Q6H RESP THERAPY HHN Last administered on 08/28/18at 08:21; Admin Dose 0.5 MG; Start 08/21/18 at 21:08 Diagnostic Test (Pha) (Accu-Chek) 1 ea 02 XX Last administered on 08/28/18at 02:30; Admin Dose 1 EA; Start 08/21/18 at 21:08 Miscellaneous Information 1 ea NOTE XX ; Start 08/21/18 at 21:08 Glucose (Glutose) 15 gm Q15M PRN PO DECREASED GLUCOSE; Start 08/21/18 at 21:08 Glucose (Glutose) 22.5 gm Q15M PRN PO DECREASED GLUCOSE; Start 08/21/18 at 21:08 Dextrose (D50w Syringe) 25 ml Q15M PRN IV DECREASED GLUCOSE; Start 08/21/18 at 21:08 Dextrose (D50w Syringe) 50 ml Q15M PRN IV DECREASED GLUCOSE; Start 08/21/18 at 21:08 Glucagon (Glucagen) 1 mg Q15M PRN IM DECREASED GLUCOSE; Start 08/21/18 at 21:08 Glucose (Glutose) 15 gm Q15M PRN BUCCAL DECREASED GLUCOSE; Start 08/21/18 at 21:08 Furosemide (Lasix) 40 mg DAILY PO Last administered on 08/28/18at 09:13; Admin Dose 40 MG; Start 08/21/18 at 21:08 Famotidine (Pepcid) 20 mg DAILY PO Last administered on 08/27/18 08:50; Admin Dose 20 MG; Start 08/21/18 at 21:08 Insulin Aspart (Novolog Insulin Pen) 10 unit WITH MEALS SC Last administered on 08/28/18 08:12; Admin Dose 10 UNIT; Start 08/21/18 at 21:08 Insulin Aspart (Novolog Insulin Pen) NOVOLOG *MODERATE* ALGORITHM WITH MEALS BEDTIME SC Last administered on 08/28/18 08:13; Admin Dose 4 UNIT; Start 08/21/18 at 21:08 Oxycodone/ Acetaminophen (Endocet (10 325)) 1 tab Q4H PRN PO MODERATE PAIN LEVEL 4-6 Last administered on 08/28/18 04:14; Admin Dose 1 TAB; Start 08/21/18 at 21:08 Hydralazine HCl (Apresoline) 10 mg Q4H PRN IV SBP >150; Start 08/21/18 at 21:30 Acetaminophen (Tylenol Tab) 650 mg Q3H PRN PO ELEVATED TEMPERATURE Last administered on 08/26/18 15:46; Admin Dose 650 MG; Start 08/21/18 at 22:00 Ascorbic Acid (Vitamin C) 500 mg TID NGT Last administered on 08/28/18 09:08; Admin Dose 500 MG; Start 08/21/18 at 21:49 Carvedilol (Coreg) 12.5 mg BID PO Last administered on 08/27/18 22:03; Admin Dose 12.5 MG; Start 08/21/18 at 21:51 Docusate Sodium (Colace) 250 mg BID PO Last administered on 08/28/18 09:08; Admin Dose 250 MG; Start 08/21/18 at 21:51 Amlodipine Besylate (Norvasc) 5 mg DAILY PO Last administered on 08/27/18 08:51; Admin Dose 5 MG; Start 08/22/18 at 09:00 Magnesium Hydroxide (Milk Of Mag) 30 ml BID PRN PO CONSTIPATION Last administered on 08/22/18 17:19; Admin Dose 30 ML; Start 08/22/18 at 11:00 Lactulose (Enulose) 20 gm DAILY PRN PO CONSTIPATION Last administered on 08/22/18 12:44; Admin Dose 20 GM; Start 08/22/18 at 11:00 Bisacodyl (Dulcolax Supp) 10 mg DAILY PRN [place] CONSTIPATION; Start 08/22/18 at 11:00 Ciprofloxacin (Cipro) 500 mg BID@06,18 NGT Last administered on 08/28/18at 06:42; Admin Dose 500 MG; Start 08/23/18 at 06:36 Morphine Sulfate (morphine) 1 mg Q6H PRN IV SEVERE PAIN LEVEL 7-10; Start 08/23/18 at 07:00 Nitroglycerin (Nitroglycerin (Sl Tab) 0.4 Mg) 1 tab Q5M PRN SL ANGINA; Start 08/24/18 at 11:30 Gabapentin (Neurontin) 100 mg TID PO Last administered on 08/28/18at 09:08; Admin Dose 100 MG; Start 08/25/18 at 13:00 Polyethylene Glycol (Miralax) 17 gm TID PRN PO CONSTIPATION; Start 08/25/18 at 12:00 Insulin Glargine (Lantus) 28 units 2100 SC Last administered on 08/27/18at 22:17; Admin Dose 28 UNITS; Start 08/26/18 at 21:00 Hydromorphone HCl (Dilaudid) 1 mg Q3 PRN IV SEVERE PAIN LEVEL 7-10 Last administered on 08/28/18at 11:55; Admin Dose 1 MG; Start 08/27/18 at 13:00 Furosemide (Lasix) 20 mg ONCE ONCE IV ; Start 08/28/18 at 15:00; Stop 08/28/18 at 15:01 Assessment/Plan Additional Assessment/Plan rehab- Critical illness myopathy; Lumbar radiculopathy with right lower extremity symptoms. Continue rehab therapies Coronary artery disease status post 5-vessel CABG. Status post acute respiratory failure. Acute on chronic kidney disease. Oropharyngeal dysphagia on mechanical soft diet-improved h.o. pancreatitis-f/b GI Chronic obstructive pulmonary disease. Diabetes mellitus type 2. Hypertension. Hyperlipidemia. Osteoarthritis affecting multiple joints, including bilateral knees. Diabetic retinopathy. Anemia of chronic disease. Benign prostatic hypertrophy. YARIEL MARIE MD August 28, 2018 13:12
--- NOTE | 2018-08-28 13:36 | CONS ---
Assessment/Plan Assessment/Plan Hospital Course (Demo Recall) 73 yo male with h/o severe coronary artery disease, s/p multi vessel CABG, is referred to GI to evaluate for abnormal LFTs Interval hx: Amylase, lipase wnl. LFT trending down. 1. Pancreatitis, likely biliary -lipid panel -US of liver pending -NPO -IVF for hydration 2. Transaminitis -elevated alk, alt, ast -monitor qd -US of liver -lipase and amylase -limit hepatatoxic medications 3. Severe coronary artery disease, S/P multi vessel CABG recently - pr cardiology team 4. Diabetes mellitus -per primary team 5. Renal failure -per nephrology team 6. Iron deficiency anemia -monitor HH and for acute GI bleeding, pt is on eliquis and plavix 7. Obesity 8. HTN 9. DM2 10. Fatty liver 11. Hepatosplenomegaly US of liver: 1. Sludge is noted within the gallbladder. There is no gallbladder wall thickening or pericholecystic fluid to suggest acute cholecystitis. 2. No biliary duct dilatation. 3. Fatty change of the liver. 4. Hepatosplenomegaly. 5. Slightly increased bilateral renal cortical echogenicity suggest medical renal disease. 6. Questionable 1.4 cm echogenic cortical lesion in the right kidney without corresponding abnormality seen on the previous CT scan. This is likely artifactual Plan: Consider PO iron supplementation for low Iron and TIBC Monitor LFTs, lipase and amylase Clear liquid diet, advance as tolerated Monitor HH and for GI bleeding Pt examined and plan of care discussed with Dr. Bill Consultation Date/Type/Reason Admit Date/Time August 21, 2018 at 18:31 Initial Consult Date Requesting Provider: NERIS BROTHERS MD Date/Time of Note DATE: 08/28/18 TIME: 13:34 24 HR Interval Summary Free Text/Dictation 07/30 abd pain. Improved. Amylase and lipase wnl. LFT coming down. No nausea Exam/Review of Systems Exam Vitals Vital Signs Date Temp Pulse Resp B/P (MAP) Pulse Ox O2 O2 Flow FiO2 Time Delivery Rate 08/28/18 3.0 13:08 08/28/18 65 112/55 10:00 (74) 08/28/18 20 94 Nasal 08:31 Cannula 08/28/18 98.3 07:00 08/25/18 21 19:51 Intake and Output 08/27/18 08/27/18 08/28/18 1515:00 23:00 07:00 IntakeIntake Total 460 ml 2140 ml OutputOutput Total 300 ml 500 ml BalanceBalance 160 ml 1640 ml Constitutional: alert, oriented Psych: no complaints Head: normocephalic Eyes: nl sclera, PERRL ENMT: mucosa pink and moist Respiratory: normal air movement Gastrointestinal: soft, bowel sounds, tender 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: nl mental status Results Result Diagram: 08/28/18 0752 08/28/18 0752 Results 24hrs Laboratory Tests Test 08/27/18 18:14 08/27/18 22:06 08/28/18 03:02 08/28/18 07:52 Bedside Glucose 184 208 220 White Blood Count 8.0 Red Blood Count 2.79 L Hemoglobin 8.1 L Hematocrit 25.5 L Mean Corpuscular Volume 91.4 Mean Corpuscular 29.0 Hemoglobin Mean Corpuscular 31.8 L Hemoglobin Concent Red Cell Distribution 14.6 H Width Platelet Count 219 Mean Platelet Volume 11.7 H Immature Granulocytes % 0.600 H Neutrophils % 73.8 Lymphocytes % 12.1 L Monocytes % 11.9 H Eosinophils % 1.2 Basophils % 0.4 Nucleated Red Blood 0.0 Cells % Immature Granulocytes # 0.050 H Neutrophils # 5.9 Lymphocytes # 1.0 Monocytes # 1.0 H Eosinophils # 0.1 Basophils # 0.0 Nucleated Red Blood 0.0 Cells # Sodium Level 132 L Potassium Level 3.9 Chloride Level 96 L Carbon Dioxide Level 29 Anion Gap 7 Blood Urea Nitrogen 37 H Creatinine 1.83 H Est Glomerular Filtrat Rate mL/min Glucose Level 208 Calcium Level 7.9 L Total Bilirubin 0.4 Direct Bilirubin 0.00 Indirect Bilirubin 0.4 Aspartate Amino 83 #H Transf (AST/SGOT) Alanine 135 H Aminotransferase (ALT/SG PT) Alkaline Phosphatase 213 H Total Protein 5.8 L Albumin 3.0 L Globulin 2.80 Albumin/Globulin Ratio 1.07 Amylase Level 102 # Lipase 277 Test 08/28/18 08:10 08/28/18 11:56 Bedside Glucose 215 204 Medications Medication Current Medications Ondansetron HCl (Zofran Inj) 4 mg Q6H PRN IV NAUSEA AND/OR VOMITING; Start 08/21 at 21:08 Albumin Human 250 ml @ 500 mls/hr PRN PRN IV CVP< 8, OR SBP<90; Start 08/21/18 at 21:08 Clopidogrel Bisulfate (plaVIX) 75 mg DAILY NGT Last administered on 08/28/18 09:13; Admin Dose 75 MG; Start 08/21/18 at 21:08 Levalbuterol (Xopenex Neb) 1.25 mg Q6H RESP THERAPY HHN Last administered on 08/28/18 08:21; Admin Dose 1.25 MG; Start 08/21/18 at 21:08 Ipratropium [place] (Atrovent 0.02% (Neb)) 0.5 mg Q6H RESP THERAPY HHN Last administered on 08/28/18 08:21; Admin Dose 0.5 MG; Start 08/21/18 at 21:08 Diagnostic Test (Pha) (Accu-Chek) 1 ea 02 XX Last administered on 08/28/18 02:30; Admin Dose 1 EA; Start 08/21/18 at 21:08 Miscellaneous Information 1 ea NOTE XX ; Start 08/21/18 at 21:08 Glucose (Glutose) 15 gm Q15M PRN PO DECREASED GLUCOSE; Start 08/21/18 at 21:08 Glucose (Glutose) 22.5 gm Q15M PRN PO DECREASED GLUCOSE; Start 08/21/18 at 21:08 Dextrose (D50w Syringe) 25 ml Q15M PRN IV DECREASED GLUCOSE; Start 08/21/18 at 21:08 Dextrose (D50w Syringe) 50 ml Q15M PRN IV DECREASED GLUCOSE; Start 08/21/18 at 21:08 Glucagon (Glucagen) 1 mg Q15M PRN IM DECREASED GLUCOSE; Start 08/21/18 at 21:08 Glucose (Glutose) 15 gm Q15M PRN BUCCAL DECREASED GLUCOSE; Start 08/21/18 at 21:08 Furosemide (Lasix) 40 mg DAILY PO Last administered on 08/28/18 09:13; Admin Dose 40 MG; Start 08/21/18 at 21:08 Famotidine (Pepcid) 20 mg DAILY PO Last administered on 08/27/18 08:50; Admin Dose 20 MG; Start 08/21/18 at 21:08 Insulin Aspart (Novolog Insulin Pen) 10 unit WITH MEALS SC Last administered on 08/28/18 08:12; Admin Dose 10 UNIT; Start 08/21/18 at 21:08 Insulin Aspart (Novolog Insulin Pen) NOVOLOG *MODERATE* ALGORITHM WITH MEALS BEDTIME SC Last administered on 08/28/18 08:13; Admin Dose 4 UNIT; Start 08/21/18 at 21:08 Oxycodone/ Acetaminophen (Endocet (10/ 325)) 1 tab Q4H PRN PO MODERATE PAIN LEVEL 4-6 Last administered on 08/28/18 04:14; Admin Dose 1 TAB; Start 08/21/18 at 21:08 Hydralazine HCl (Apresoline) 10 mg Q4H PRN IV SBP >150; Start 08/21/18 at 21:30 Acetaminophen (Tylenol Tab) 650 mg Q3H PRN PO ELEVATED TEMPERATURE Last administered on 08/26/18 15:46; Admin Dose 650 MG; Start 08/21/18 at 22:00 Ascorbic Acid (Vitamin C) 500 mg TID NGT Last administered on 08/28/18 09:08; Admin Dose 500 MG; Start 08/21/18 at 21:49 Carvedilol (Coreg) 12.5 mg BID PO Last administered on 08/27/18 22:03; Admin Dose 12.5 MG; Start 08/21/18 at 21:51 Docusate Sodium (Colace) 250 mg BID PO Last administered on 08/28/18 09:08; Admin Dose 250 MG; Start 08/21/18 at 21:51 Amlodipine Besylate (Norvasc) 5 mg DAILY PO Last administered on 08/27/18 08:51; Admin Dose 5 MG; Start 08/22/18 at 09:00 Magnesium Hydroxide (Milk Of Mag) 30 ml BID PRN PO CONSTIPATION Last administered on 08/22/18 17:19; Admin Dose 30 ML; Start 08/22/18 at 11:00 Lactulose (Enulose) 20 gm DAILY PRN PO CONSTIPATION Last administered on 08/22/18 12:44; Admin Dose 20 GM; Start 08/22/18 at 11:00 Bisacodyl (Dulcolax Supp) 10 mg DAILY PRN [place] CONSTIPATION; Start 08/22/18 at 11:00 Ciprofloxacin (Cipro) 500 mg BID@,18 NGT Last administered on 5/9/19at 06:42; Admin Dose 500 MG; Start 08/23/18 at 06:36 Morphine Sulfate (morphine) 1 mg Q6H PRN IV SEVERE PAIN LEVEL 7-10; Start 08/23/18 at 07:00 Nitroglycerin (Nitroglycerin (Sl Tab) 0.4 Mg) 1 tab Q5M PRN SL ANGINA; Start 08/24/18 at 11:30 Gabapentin (Neurontin) 100 mg TID PO Last administered on 08/28/18at 09:08; Admin Dose 100 MG; Start 08/25/18 at 13:00 Polyethylene Glycol (Miralax) 17 gm TID PRN PO CONSTIPATION; Start 08/25/18 at 12:00 Insulin Glargine (Lantus) 28 units 2100 SC Last administered on 08/27/18at 22:17; Admin Dose 28 UNITS; Start 08/26/18 at 21:00 Hydromorphone HCl (Dilaudid) 1 mg Q3 PRN IV SEVERE PAIN LEVEL 7-10 Last administered on 08/28/18at 11:55; Admin Dose 1 MG; Start 08/27/18 at 13:00 Furosemide (Lasix) 20 mg ONCE ONCE IV ; Start 08/28/18 at 15:00; Stop 08/28/18 at 15:01 BRIAN REDDY August 28, 2018 13:36
[2018-08-28 14:00] VITALS: BP 146/67; PULSE 65; RESP 18
--- NOTE | 2018-08-28 14:38 | PN ---
Date/Time of Note Date/Time of Note DATE: 08/28/18 TIME: 14:37 Assessment/Plan VTE Prophylaxis Risk score (from Ns)>0 risk: 7 SCD applied (from [facility] [place]): No SCD contraindicated: other Pharmacological prophylaxis: apixaban Lines/Catheters IV Catheter Type (from [facility]): [place] line still needed: No Urinary Cath still in place: No Assessment/Plan Assessment/Plan 1. Ischemic heart disease angina three-vessel coronary a. disease.s/p CABG x5 08/13/18: WINN to LAD, SVG to ramus sequence to obtuse marginal artery, SVG to PDA, SVG to left ventricular extension branch. Difficult case per Dr. Howell with poor targets.Vein harvesting and epiaortic scanning of the ascending aorta.CAD: s/p multiple prior PCIs. Cath 08/11/18 with multivessel disease. Now with elevated level of the troponin the second 1 is 1.1. We will get q. 6 hours x 2. The patient denies having the chest pain. 2. Hypertension with congestive heart failure diastolic- improved. 3. Diabetes mellitus type 2 blood sugar better controlled. Continue titration. 4. History of cholecystitis and pancreatitis 5. Acute on chronic kidney disease with baseline creatinine being 1.6 up to 3.5 came down to 2.05 yesterday and 1.95 today. Improved after hydration,now mildly dehydrated; 6. Dyslipidemia better controlled 7. History of nasal bleeding recurrent- stable. 8. Morbid obesity with snoring and apnea and daytime sleepiness 9. BPH with nocturia 10. Low back pain with radiculopathy 11. 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 Status post cataract ectomy 13. Diabetic nephropathy retinopathy and angiopathy and neuropathy. 14. Constipation- improved. 15. Grief reaction after the of her 16. Gastroesophageal reflux disease 17. Deep venous thrombosis of the left saphenous vein, 2-3 months ago;was on Eliquis 5 mg twice daily, stopped: since 08/11/2018. 18. Gastritis 19. COPD. Quit smoking 10years ago. 02sat now 95% with persistent cough. 20. History of nephrolithiasis. 21. Drop of hematocrit; s/p 2 units of prbc tx. 22. Drop of albumone and total protein and mild elevation of lft's. 21. Drop of hematocrit; s/p 2 units of prbc tx. further decline today; hematocrit being the 25 recheck tomorrow. 22. Drop of albumone and total protein and mild elevation of lft's. 23.Myopathy 24.Lethargy 25.Acute on chronic kidney disease, improving 26. Pancreatitis with pain. 27.Unstable gateon. Result Diagram: 08/28/18 0752 08/28/18 0752 Results 24hrs Laboratory Tests Test 08/27/18 18:14 08/27/18 22:06 08/28/18 03:02 08/28/18 07:52 Bedside Glucose 184 208 220 White Blood Count 8.0 Red Blood Count 2.79 L Hemoglobin 8.1 L Hematocrit 25.5 L Mean Corpuscular Volume 91.4 Mean Corpuscular 29.0 Hemoglobin Mean Corpuscular 31.8 L Hemoglobin Concent Red Cell Distribution 14.6 H Width Platelet Count 219 Mean Platelet Volume 11.7 H Immature Granulocytes % 0.600 H Neutrophils % 73.8 Lymphocytes % 12.1 L Monocytes % 11.9 H Eosinophils % 1.2 Basophils % 0.4 Nucleated Red Blood 0.0 Cells % Immature Granulocytes # 0.050 H Neutrophils # 5.9 Lymphocytes # 1.0 Monocytes # 1.0 H Eosinophils # 0.1 Basophils # 0.0 Nucleated Red Blood 0.0 Cells # Sodium Level 132 L Potassium Level 3.9 Chloride Level 96 L Carbon Dioxide Level 29 Anion Gap 7 Blood Urea Nitrogen 37 H Creatinine 1.83 H Est Glomerular Filtrat Rate mL/min Glucose Level 208 Calcium Level 7.9 L Total Bilirubin 0.4 Direct Bilirubin 0.00 Indirect Bilirubin 0.4 Aspartate Amino 83 #H Transf (AST/SGOT) Alanine 135 H Aminotransferase (ALT/SG PT) Alkaline Phosphatase 213 H Total Protein 5.8 L Albumin 3.0 L Globulin 2.80 Albumin/Globulin Ratio 1.07 Amylase Level 102 # Lipase 277 Test 08/28/18 08:10 08/28/18 11:56 Bedside Glucose 215 204 Subjective 24 Hr Interval Summary Free Text/Dictation Decreased intensity of epigastric pain. Constitutional: chills, disoriented, poor po, requiring O2; No no complaints, No improved, No diaphoresis, No febrile, No requiring IVF, No other Eyes: No no complaints, No pain, No discharge, No redness, No visual change, No other ENT: pain, congestion; No no complaints, No bleeding, No discharge, No dysphagia, No sore throat, No other Respiratory: cough, shortness of breath; No no complaints, No pain, No pleuritic pain, No sputum, No wheezing, No other Cardiovascular: No no complaints, No chest pain, No edema, No lightheadedness, No orthopenea, No palpitations, No paroxysmal nocturnal dyspnea, No other Gastrointestinal: constipation, decreased appetite, nausea, passing stool; No no complaints, No pain, No blood, No diarrhea, No flatus, No vomiting, No other Genitourinary: dysuria; No no complaints, No bleeding, No discharge, No flank pain, No hematuria, No other Musculoskeletal: back pain, bone/joint pain; No no complaints, No neck pain, No restricted range of motion, No swelling, No other Skin: No no complaints, No bruising, No erythema, No laceration, No pruritis, No rash, No skin lesions, No other Neurologic: dizziness, focal-weakness; No no complaints, No confusion, No headache, No syncope, No seizure, No other Exam/Review of Systems Exam Vitals Vital Signs Date Temp Pulse Resp B/P (MAP) Pulse Ox O2 O2 Flow FiO2 Time Delivery Rate 08/28/18 3.0 13:08 08/28/18 65 112/55 10:00 (74) 08/28/18 20 94 Nasal 08:31 Cannula 08/28/18 98.3 07:00 08/25/18 21 19:51 Intake and Output 08/27/18 08/27/18 08/28/18 1515:00 23:00 07:00 IntakeIntake Total 460 ml 2140 ml OutputOutput Total 300 ml 500 ml BalanceBalance 160 ml 1640 ml Constitutional: alert, oriented, well developed, distress, frail, obese; No non-verbal, No other Psych: anxiety, depression; No no complaints, No nl mood/affect, No confusion, No suicidal, No other Head: normocephalic, atraumatic; No lacerations, No hematomas, No other Eyes: EOMI, nl lids, PERRL, icteric (Pale conjunctiva bilaterally.); No nl conjunctiva, No nl sclera, No fundi, disc, No other ENMT: nl lips & teeth; No nl external ears & nose, No nl nasal mucosa & septum, No mucosa pink and moist, No intubated, No tympanic membranes, No other Neck: non-tender, jvd; No supple, No bruits, No masses, No thyromegaly, No nuchal rigidity, No other Respiratory: normal air movement, diminished breath sounds; No clear to auscultation, No congested cough, No crackles/rales, No intercostal retraction, No labored breathing, No respirations, No tactile fremitus, No wheezing, No other Cardiovascular: regular rate and rhythm, edema, systolic murmur; No nl pulses, No bruits, No diastolic murmur, No gallop, No irregular rhythm, No jugular venous distention (JVD), No murmurs/extra sounds, No rub, No S3, No S4, No other Gastrointestinal: soft, nl liver, spleen, bowel sounds, distended, hepatomegaly, rebound or guarding (Posterior tenderness to be guarding with no rebound or guarding.); No non-tender, No ascites, No firm, No mass, No splenomegaly, No surgical scars, No tender, No other Genitourinary - Male: nl penis, nl scrotum; No CVA tenderness, No discharge, No other Musculoskeletal: joint tenderness; No nl extremities to inspection, No nl gait and stance, No muscle tone, No muscle weakness, No range of motion, No spine non-tender, No swelling, No other Extremities: normal pulses; No calf tenderness, No cyanosis, No clubbing, No edema, No pitting pedal edema, No palpable cord, No tenderness, No other 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: NEGATIVE CUTTER II-XII intact, nl speech; No nl mental status, No nl strength, No confused, No DTR's symmetric, No focal weakness, No lethargic, No numbness, No reflexes, No unresponsive, No other Skin: rash or lesions; No nl turgor, No diaphoresis, No ecchymosis, No laceration, No puncture, No other Lymph: nl lymph nodes; No enlarged, No nontender, No other Results Results 24hrs Laboratory Tests Test 08/27/18 18:14 08/27/18 22:06 08/28/18 03:02 08/28/18 07:52 Bedside Glucose 184 208 220 White Blood Count 8.0 Red Blood Count 2.79 L Hemoglobin 8.1 L Hematocrit 25.5 L Mean Corpuscular Volume 91.4 Mean Corpuscular 29.0 Hemoglobin Mean Corpuscular 31.8 L Hemoglobin Concent Red Cell Distribution 14.6 H Width Platelet Count 219 Mean Platelet Volume 11.7 H Immature Granulocytes % 0.600 H Neutrophils % 73.8 Lymphocytes % 12.1 L Monocytes % 11.9 H Eosinophils % 1.2 Basophils % 0.4 Nucleated Red Blood 0.0 Cells % Immature Granulocytes # 0.050 H Neutrophils # 5.9 Lymphocytes # 1.0 Monocytes # 1.0 H Eosinophils # 0.1 Basophils # 0.0 Nucleated Red Blood 0.0 Cells # Sodium Level 132 L Potassium Level 3.9 Chloride Level 96 L Carbon Dioxide Level 29 Anion Gap 7 Blood Urea Nitrogen 37 H Creatinine 1.83 H Est Glomerular Filtrat Rate mL/min Glucose Level 208 Calcium Level 7.9 L Total Bilirubin 0.4 Direct Bilirubin 0.00 Indirect Bilirubin 0.4 Aspartate Amino 83 #H Transf (AST/SGOT) Alanine 135 H Aminotransferase (ALT/SG PT) Alkaline Phosphatase 213 H Total Protein 5.8 L Albumin 3.0 L Globulin 2.80 Albumin/Globulin Ratio 1.07 Amylase Level 102 # Lipase 277 Test 08/28/18 08:10 08/28/18 11:56 Bedside Glucose 215 204 Medications Medication Current Medications Ondansetron HCl (Zofran Inj) 4 mg Q6H PRN IV NAUSEA AND/OR VOMITING; Start 08/21/18 at 21:08 Albumin Human 250 ml @ 500 mls/hr PRN PRN IV CVP< 8, OR SBP<90; Start 08/21/18 at 21:08 Clopidogrel Bisulfate (plaVIX) 75 mg DAILY NGT Last administered on 08/28/18at 09:13; Admin Dose 75 MG; Start 08/21/18 at 21:08 Levalbuterol (Xopenex Neb) 1.25 mg Q6H RESP THERAPY HHN Last administered on 08/28/18 08:21; Admin Dose 1.25 MG; Start 08/21/18 at 21:08 Ipratropium [place] (Atrovent 0.02% (Neb)) 0.5 mg Q6H RESP THERAPY HHN Last administered on 08/28/18 08:21; Admin Dose 0.5 MG; Start 08/21/18 at 21:08 Diagnostic Test (Pha) (Accu-Chek) 1 ea 02 XX Last administered on 08/28/18at 02:30; Admin Dose 1 EA; Start 08/21/18 at 21:08 Miscellaneous Information 1 ea NOTE XX ; Start 08/21/18 at 21:08 Glucose (Glutose) 15 gm Q15M PRN PO DECREASED GLUCOSE; Start 08/21/18 at 21:08 Glucose (Glutose) 22.5 gm Q15M PRN PO DECREASED GLUCOSE; Start 08/21/18 at 21:08 Dextrose (D50w Syringe) 25 ml Q15M PRN IV DECREASED GLUCOSE; Start 08/21/18 at 21:08 Dextrose (D50w Syringe) 50 ml Q15M PRN IV DECREASED GLUCOSE; Start 08/21/18 at 21:08 Glucagon (Glucagen) 1 mg Q15M PRN IM DECREASED GLUCOSE; Start 08/21/18 at 21:08 Glucose (Glutose) 15 gm Q15M PRN BUCCAL DECREASED GLUCOSE; Start 08/21/18 at 21:08 Furosemide (Lasix) 40 mg DAILY PO Last administered on 08/28/18at 09:13; Admin Dose 40 MG; Start 08/21/18 at 21:08 Famotidine (Pepcid) 20 mg DAILY PO Last administered on 08/27/18 08:50; Admin Dose 20 MG; Start 08/21/18 at 21:08 Insulin Aspart (Novolog Insulin Pen) 10 unit WITH MEALS SC Last administered on 08/28/18 08:12; Admin Dose 10 UNIT; Start 08/21/18 at 21:08 Insulin Aspart (Novolog Insulin Pen) NOVOLOG *MODERATE* ALGORITHM WITH MEALS BEDTIME SC Last administered on 08/28/18at 08:13; Admin Dose 4 UNIT; Start 08/21/18 at 21:08 Oxycodone/ Acetaminophen (Endocet (10/ 325)) 1 tab Q4H PRN PO MODERATE PAIN LEVEL 4-6 Last administered on 08/28/18at 04:14; Admin Dose 1 TAB; Start 08/21/18 at 21:08 Hydralazine HCl (Apresoline) 10 mg Q4H PRN IV SBP >150; Start 08/21/18 at 21:30 Acetaminophen (Tylenol Tab) 650 mg Q3H PRN PO ELEVATED TEMPERATURE Last administered on 08/26/18 15:46; Admin Dose 650 MG; Start 08/21/18 at 22:00 Ascorbic Acid (Vitamin C) 500 mg TID NGT Last administered on 08/28/18 14:30; Admin Dose 500 MG; Start 08/21/18 at 21:49 Carvedilol (Coreg) 12.5 mg BID PO Last administered on 08/27/18 22:03; Admin Dose 12.5 MG; Start 08/21/18 at 21:51 Docusate Sodium (Colace) 250 mg BID PO Last administered on 08/28/18 09:08; Admin Dose 250 MG; Start 08/21/18 at 21:51 Amlodipine Besylate (Norvasc) 5 mg DAILY PO Last administered on 08/27/18 08:51; Admin Dose 5 MG; Start 08/22/18 at 09:00 Magnesium Hydroxide (Milk Of Mag) 30 ml BID PRN PO CONSTIPATION Last administered on 08/22/18 17:19; Admin Dose 30 ML; Start 08/22/18 at 11:00 Lactulose (Enulose) 20 gm DAILY PRN PO CONSTIPATION Last administered on 08/22/18 12:44; Admin Dose 20 GM; Start 08/22/18 at 11:00 Bisacodyl (Dulcolax Supp) 10 mg DAILY PRN [place] CONSTIPATION; Start 08/22/18 at 11:00 Ciprofloxacin (Cipro) 500 mg BID@06,18 NGT Last administered on 08/28/18 06:42; Admin Dose 500 MG; Start 08/23/18 at 06:36 Morphine Sulfate (morphine) 1 mg Q6H PRN IV SEVERE PAIN LEVEL 7-10; Start 08/23/18 at 07:00 Nitroglycerin (Nitroglycerin (Sl Tab) 0.4 Mg) 1 tab Q5M PRN SL ANGINA; Start 08/24/18 at 11:30 Gabapentin (Neurontin) 100 mg TID PO Last administered on 08/28/18 14:30; Admin Dose 100 MG; Start 08/25/18 at 13:00 Polyethylene Glycol (Miralax) 17 gm TID PRN PO CONSTIPATION; Start 08/25/18 at 12:00 Insulin Glargine (Lantus) 28 units 2100 SC Last administered on 08/27/18 22:17; Admin Dose 28 UNITS; Start 08/26/18 at 21:00 Hydromorphone HCl (Dilaudid) 1 mg Q3 PRN IV SEVERE PAIN LEVEL 7-10 Last administered on 08/28/18at 11:55; Admin Dose 1 MG; Start 08/27/18 at 13:00 Furosemide (Lasix) 20 mg ONCE ONCE IV Last administered on 08/28/18at 14:30; Admin Dose 20 MG; Start 08/28/18 at 15:00; Stop 08/28/18 at 15:01 NERIS BROTHERS MD August 28, 2018 14:38
[2018-08-28] MEDS ORDERED: FUROSEMIDE 20 MG INJ IV ONE (15:00)
[2018-08-28 20:31] VITALS: BP 133/64; PULSE 66; RESP 18
[2018-08-28] MEDS: INSULIN GLARGINE [LANTus] (100 UNITS/ML) SYG SC SCH (20:44)
--- NOTE | 2018-08-28 22:18 | PN ---
Date/Time of Note Date/Time of Note DATE: 08/28/18 TIME: 22:14 Assessment/Plan VTE Prophylaxis Risk score (from Ns)>0 risk: 7 SCD applied (from Ns): No SCD contraindicated: other (on) Pharmacological prophylaxis: apixaban Lines/Catheters IV Catheter Type ([facility]): [place] line still needed: No Urinary Cath still in place: No Reason Cath still needed: urinary retention Assessment/Plan Assessment/Plan 1. Ischemic heart disease angina three-vessel coronary a. disease.s/p CABG x5 08/13/18: WINN to LAD, SVG to ramus sequence to obtuse marginal artery, SVG to PDA, SVG to left ventricular extension branch. Difficult case per Dr. Howell with poor targets.Vein harvesting and epiaortic scanning of the ascending aorta.CAD: s/p multiple prior PCIs. Cath 08/11/18 with multivessel disease. The patient denies having the chest pain. 2. Hypertension with congestive heart failure diastolic- improved. 3. Diabetes mellitus type 2 blood sugar better controlled. Continue titration. 4. History of cholecystitis and pancreatitis 5. Acute on chronic kidney disease with baseline creatinine being 1.6 up to 3.5 came down to 2.05 yesterday and 1.95 today. Improved after hydration,now mildly dehydrated; 6. Dyslipidemia better controlled 7. History of nasal bleeding recurrent- stable. 8. Morbid obesity with snoring and apnea and daytime sleepiness 9. BPH with nocturia 10. Low back pain with radiculopathy 11. 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 Status post cataract ectomy 13. Diabetic nephropathy retinopathy and angiopathy and neuropathy. 14. Constipation- improved. 15. Grief reaction after the of her 16. Gastroesophageal reflux disease 17. Deep venous thrombosis of the left saphenous vein, 2-3 months ago;was on Eliquis 5 mg twice daily, stopped: since 08/11/2018. 18. Gastritis 19. COPD. Quit smoking 10years ago. 02sat now 95% with persistent cough. 20. History of nephrolithiasis. 21. Drop of hematocrit; s/p 2 units of prbc tx. further decline today; hematocrit being the 25 recheck tomorrow. 22. Drop of albumone and total protein and mild elevation of lft's. 23.Myopathy 24.Lethargy 25.Acute on chronic kidney disease, improving 26. Pancreatitis improving. 27.Unstable gate Result Diagram: 08/28/18 0752 08/28/18 0752 Results 24hrs Laboratory Tests Test 08/28/18 03:02 08/28/18 07:52 08/28/18 08:10 08/28/18 11:56 Bedside Glucose 220 215 204 White Blood Count 8.0 Red Blood Count 2.79 L Hemoglobin 8.1 L Hematocrit 25.5 L Mean Corpuscular Volume 91.4 Mean Corpuscular 29.0 Hemoglobin Mean Corpuscular 31.8 L Hemoglobin Concent Red Cell Distribution 14.6 H Width Platelet Count 219 Mean Platelet Volume 11.7 H Immature Granulocytes % 0.600 H Neutrophils % 73.8 Lymphocytes % 12.1 L Monocytes % 11.9 H Eosinophils % 1.2 Basophils % 0.4 Nucleated Red Blood 0.0 Cells % Immature Granulocytes # 0.050 H Neutrophils # 5.9 Lymphocytes # 1.0 Monocytes # 1.0 H Eosinophils # 0.1 Basophils # 0.0 Nucleated Red Blood 0.0 Cells # Sodium Level 132 L Potassium Level 3.9 Chloride Level 96 L Carbon Dioxide Level 29 Anion Gap 7 Blood Urea Nitrogen 37 H Creatinine 1.83 H Est Glomerular Filtrat Rate mL/min Glucose Level 208 Calcium Level 7.9 L Total Bilirubin 0.4 Direct Bilirubin 0.00 Indirect Bilirubin 0.4 Aspartate Amino 83 #H Transf (AST/SGOT) Alanine 135 H Aminotransferase (ALT/SG PT) Alkaline Phosphatase 213 H Total Protein 5.8 L Albumin 3.0 L Globulin 2.80 Albumin/Globulin Ratio 1.07 Amylase Level 102 # Lipase 277 Test 08/28/18 17:45 08/28/18 20:38 Bedside Glucose 176 161 Subjective 24 Hr Interval Summary Free Text/Dictation I am very weak. I am getting dizzy when I get up. Generalized body ache right lower leg and right ankle pain with mild swelling. Anorexia and oriented nausea with epigastric pain less intense than yesterday. Constitutional: improved, poor po, requiring O2; No no complaints, No chills, No diaphoresis, No disoriented, No febrile, No requiring IVF, No other Eyes: No no complaints, No pain, No discharge, No redness, No visual change, No other ENT: congestion, dysphagia; No no complaints, No bleeding, No pain, No discharge, No sore throat, No other Respiratory: cough, pleuritic pain, shortness of breath; No no complaints, No pain, No sputum, No wheezing, No other Cardiovascular: chest pain, edema; No no complaints, No lightheadedness, No orthopenea, No palpitations, No paroxysmal nocturnal dyspnea, No other Gastrointestinal: constipation, decreased appetite, passing stool; No no complaints, No pain, No blood, No diarrhea, No flatus, No nausea, No vomiting, No other Genitourinary: dysuria; No no complaints, No bleeding, No discharge, No flank pain, No hematuria, No other Musculoskeletal: back pain, bone/joint pain; No no complaints, No neck pain, No restricted range of motion, No swelling, No other Skin: No no complaints, No bruising, No erythema, No laceration, No pruritis, No rash, No skin lesions, No other Neurologic: dizziness; No no complaints, No confusion, No focal-weakness, No headache, No syncope, No seizure, No other Endocrine: dry skin; No no complaints, No polyuria, No polydypsia, No temp intolerance, No other Exam/Review of Systems Exam Vitals Vital Signs Date Temp Pulse Resp B/P (MAP) Pulse Ox O2 O2 Flow FiO2 Time Delivery Rate 08/28/18 2.0 20:32 08/28/18 98.5 66 18 133/64 97 Room Air 20:31 (87) 08/25/18 21 19:51 Intake and Output 08/27/18 08/27/18 08/28/18 1515:00 23:00 07:00 IntakeIntake Total 460 ml 2140 ml OutputOutput Total 300 ml 500 ml BalanceBalance 160 ml 1640 ml Constitutional: alert, oriented, well developed, distress, frail Psych: anxiety, depression; No no complaints, No nl mood/affect, No confusion, No suicidal, No other Head: normocephalic, atraumatic; No lacerations, No hematomas, No other Eyes: EOMI, nl lids, PERRL; No nl conjunctiva, No nl sclera, No icteric, No fundi, disc, No other ENMT: No nl external ears & nose, No nl lips & teeth, No nl nasal mucosa & septum, No mucosa pink and moist, No intubated, No tympanic membranes, No other Neck: jvd, bruits, thyromegaly, nuchal rigidity; No supple, No non-tender, No masses, No other Respiratory: normal air movement, crackles/rales, diminished breath sounds Cardiovascular: regular rate and rhythm, bruits, edema, systolic murmur; No nl pulses, No diastolic murmur, No gallop, No irregular rhythm, No jugular venous distention (JVD), No murmurs/extra sounds, No rub, No S3, No S4, No other Gastrointestinal: soft, nl liver, spleen, bowel sounds Genitourinary - Male: nl penis, nl scrotum Musculoskeletal: joint tenderness (Tender right ankle area medially and also lower third of right leg tibial medial areas with no erythema.) Extremities: No normal pulses, No calf tenderness, No cyanosis, No clubbing, No edema, No pitting pedal edema, No palpable cord, No tenderness, No other 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: [employer] II-XII intact; No nl mental status, No nl speech, No nl strength, No confused, No DTR's sy mmetric, No focal weakness, No lethargic, No numbness, No reflexes, No unresponsive, No other Results Results 24hrs Laboratory Tests Test 08/28/18 03:02 08/28/18 07:52 08/28/18 08:10 08/28/18 11:56 Bedside Glucose 220 215 204 White Blood Count 8.0 Red Blood Count 2.79 L Hemoglobin 8.1 L Hematocrit 25.5 L Mean Corpuscular Volume 91.4 Mean Corpuscular 29.0 Hemoglobin Mean Corpuscular 31.8 L Hemoglobin Concent Red Cell Distribution 14.6 H Width Platelet Count 219 Mean Platelet Volume 11.7 H Immature Granulocytes % 0.600 H Neutrophils % 73.8 Lymphocytes % 12.1 L Monocytes % 11.9 H Eosinophils % 1.2 Basophils % 0.4 Nucleated Red Blood 0.0 Cells % Immature Granulocytes # 0.050 H Neutrophils # 5.9 Lymphocytes # 1.0 Monocytes # 1.0 H Eosinophils # 0.1 Basophils # 0.0 Nucleated Red Blood 0.0 Cells # Sodium Level 132 L Potassium Level 3.9 Chloride Level 96 L Carbon Dioxide Level 29 Anion Gap 7 Blood Urea Nitrogen 37 H Creatinine 1.83 H Est Glomerular Filtrat Rate mL/min Glucose Level 208 Calcium Level 7.9 L Total Bilirubin 0.4 Direct Bilirubin 0.00 Indirect Bilirubin 0.4 Aspartate Amino 83 #H Transf (AST/SGOT) Alanine 135 H Aminotransferase (ALT/SG PT) Alkaline Phosphatase 213 H Total Protein 5.8 L Albumin 3.0 L Globulin 2.80 Albumin/Globulin Ratio 1.07 Amylase Level 102 # Lipase 277 Test 08/28/18 17:45 08/28/18 20:38 Bedside Glucose 176 161 Medications Medication Current Medications Ondansetron HCl (Zofran Inj) 4 mg Q6H PRN IV NAUSEA AND/OR VOMITING; Start 08/21/18 at 21:08 Albumin Human 250 ml @ 500 mls/hr PRN PRN IV CVP< 8, OR SBP<90; Start 08/21/18 at 21:08 Clopidogrel Bisulfate (plaVIX) 75 mg DAILY NGT Last administered on 08/28/18at 09:13; Admin Dose 75 MG; Start 08/21/18 at 21:08 Levalbuterol (Xopenex Neb) 1.25 mg Q6H RESP THERAPY HHN Last administered on 08/28/18at 08:21; Admin Dose 1.25 MG; Start 08/21/18 at 21:08 Ipratropium [place] (Atrovent 0.02% (Neb)) 0.5 mg Q6H RESP THERAPY HHN Last administered on 08/28/18at 08:21; Admin Dose 0.5 MG; Start 08/21/18 at 21:08 Diagnostic Test (Pha) (Accu-Chek) 1 ea 02 XX Last administered on 08/28/18at 02:30; Admin Dose 1 EA; Start 08/21/18 at 21:08 Miscellaneous Information 1 ea NOTE XX ; Start 08/21/18 at 21:08 Glucose (Glutose) 15 gm Q15M PRN PO DECREASED GLUCOSE; Start 08/21/18 at 21:08 Glucose (Glutose) 22.5 gm Q15M PRN PO DECREASED GLUCOSE; Start 08/21/18 at 21:08 Dextrose (D50w Syringe) 25 ml Q15M PRN IV DECREASED GLUCOSE; Start 08/21/18 at 21:08 Dextrose (D50w Syringe) 50 ml Q15M PRN IV DECREASED GLUCOSE; Start 08/21/18 at 21:08 Glucagon (Glucagen) 1 mg Q15M PRN IM DECREASED GLUCOSE; Start 08/21/18 at 21:08 Glucose (Glutose) 15 gm Q15M PRN BUCCAL DECREASED GLUCOSE; Start 08/21/18 at 21:08 Furosemide (Lasix) 40 mg DAILY PO Last administered on 08/28/18 09:13; Admin Dose 40 MG; Start 08/21/18 at 21:08 Famotidine (Pepcid) 20 mg DAILY PO Last administered on 08/27/18 08:50; Admin Dose 20 MG; Start 08/21/18 at 21:08 Insulin Aspart (Novolog Insulin Pen) 10 unit WITH MEALS SC Last administered on 08/28/18 08:12; Admin Dose 10 UNIT; Start 08/21/18 at 21:08 Insulin Aspart (Novolog Insulin Pen) NOVOLOG *MODERATE* ALGORITHM WITH MEALS BEDTIME SC Last administered on 08/28/18 08:13; Admin Dose 4 UNIT; Start 08/21/18 at 21:08 Oxycodone/ Acetaminophen (Endocet (10/ 325)) 1 tab Q4H PRN PO MODERATE PAIN LEVEL 4-6 Last administered on 08/28/18 04:14; Admin Dose 1 TAB; Start 08/21/18 at 21:08 Hydralazine HCl (Apresoline) 10 mg Q4H PRN IV SBP >150; Start 08/21/18 at 21:30 Acetaminophen (Tylenol Tab) 650 mg Q3H PRN PO ELEVATED TEMPERATURE Last administered on 08/26/18 15:46; Admin Dose 650 MG; Start 08/21/18 at 22:00 Ascorbic Acid (Vitamin C) 500 mg TID NGT Last administered on 08/28/18 20:36; Admin Dose 500 MG; Start 08/21/18 at 21:49 Carvedilol (Coreg) 12.5 mg BID PO Last administered on 08/28/18 20:37; Admin Dose 12.5 MG; Start 08/21/18 at 21:51 Docusate Sodium (Colace) 250 mg BID PO Last administered on 08/28/18 20:36; Admin Dose 250 MG; Start 08/21/18 at 21:51 Amlodipine Besylate (Norvasc) 5 mg DAILY PO Last administered on 08/27/18 08:51; Admin Dose 5 MG; Start 08/22/18 at 09:00 Magnesium Hydroxide (Milk Of Mag) 30 ml BID PRN PO CONSTIPATION Last admini stered on 08/22/18 17:19; Admin Dose 30 ML; Start 08/22/18 at 11:00 Lactulose (Enulose) 20 gm DAILY PRN PO CONSTIPATION Last administered on 08/22/18 12:44; Admin Dose 20 GM; Start 08/22/18 at 11:00 Bisacodyl (Dulcolax Supp) 10 mg DAILY PRN [place] CONSTIPATION; Start 08/22/18 at 11:00 Ciprofloxacin (Cipro) 500 mg BID@,18 NGT Last administered on 08/28/18 17:48; Admin Dose 500 MG; Start 08/23/18 at 06:36 Morphine Sulfate (morphine) 1 mg Q6H PRN IV SEVERE PAIN LEVEL 7-10; Start 08/23/18 at 07:00 Nitroglycerin (Nitroglycerin (Sl Tab) 0.4 Mg) 1 tab Q5M PRN SL ANGINA; Start 08/24/18 at 11:30 Gabapentin (Neurontin) 100 mg TID PO Last administered on 08/28/18 20:36; Admin Dose 100 MG; Start 08/25/18 at 13:00 Polyethylene Glycol (Miralax) 17 gm TID PRN PO CONSTIPATION; Start 08/25/18 at 12:00 Insulin Glargine (Lantus) 28 units 2100 SC Last administered on 08/28/18 20:44; Admin Dose 28 UNITS; Start 08/26/18 at 21:00 Hydromorphone HCl (Dilaudid) 1 mg Q3 PRN IV SEVERE PAIN LEVEL 7-10 Last administered on 08/28/18 17:37; Admin Dose 1 MG; Start 08/27/18 at 13:00 NERIS BROTHERS MD August 28, 2018 22:18
[2018-08-29] MEDS: IPRATROPIUM (NEB) 0.5 MG/2.5 ML AMP HHN SCH ×4 (01:24→20:00)
[2018-08-29] MEDS: LEVALBUTEROL (NEB) 1.25 MG/0.5 ML AMP HHN SCH ×4 (01:24→20:00)
[2018-08-29] MEDS: ACCU-CHEK XX SCH (02:00)
[2018-08-29 02:47] VITALS: BP 132/63; PULSE 66; RESP 20
[2018-08-29] MEDS: CIPROFLOXACIN 500 MG TAB NGT SCH ×2 (06:24→18:20)
--- NOTE | 2018-08-29 06:28 | PN ---
Date/Time of Note Date/Time of Note DATE: 08/29/18 TIME: 06:28 Subjective Comfortable Objective Vital Signs Date Temp Pulse Resp B/P (MAP) Pulse Ox O2 O2 Flow FiO2 Time Delivery Rate 08/29/18 99.0 66 20 132/63 97 02:47 (86) 08/29/18 Nasal 2.0 01:24 Cannula 08/25/18 21 19:51 Intake and Output 08/28/18 08/28/18 08/29/18 1515:00 23:00 07:00 IntakeIntake Total 1940 ml 300 ml OutputOutput Total 1800 ml 350 ml BalanceBalance 140 ml -50 ml Exam pulm-cta abd-soft mod assist Results/Medications Result Diagram: 08/28/18 0752 08/28/18 0752 Results 24 hrs Laboratory Tests Test 08/28/18 07:52 08/28/18 08:10 08/28/18 11:56 08/28/18 17:45 White Blood Count 8.0 Red Blood Count 2.79 L Hemoglobin 8.1 L Hematocrit 25.5 L Mean Corpuscular Volume 91.4 Mean Corpuscular 29.0 Hemoglobin Mean Corpuscular 31.8 L Hemoglobin Concent Red Cell Distribution 14.6 H Width Platelet Count 219 Mean Platelet Volume 11.7 H Immature Granulocytes % 0.600 H Neutrophils % 73.8 Lymphocytes % 12.1 L Monocytes % 11.9 H Eosinophils % 1.2 Basophils % 0.4 Nucleated Red Blood 0.0 Cells % Immature Granulocytes # 0.050 H Neutrophils # 5.9 Lymphocytes # 1.0 Monocytes # 1.0 H Eosinophils # 0.1 Basophils # 0.0 Nucleated Red Blood 0.0 Cells # Sodium Level 132 L Potassium Level 3.9 Chloride Level 96 L Carbon Dioxide Level 29 Anion Gap 7 Blood Urea Nitrogen 37 H Creatinine 1.83 H Est Glomerular Filtrat Rate mL/min Glucose Level 208 Calcium Level 7.9 L Total Bilirubin 0.4 Direct Bilirubin 0.00 Indirect Bilirubin 0.4 Aspartate Amino 83 #H Transf (AST/SGOT) Alanine 135 H Aminotransferase (ALT/SG PT) Alkaline Phosphatase 213 H Total Protein 5.8 L Albumin 3.0 L Globulin 2.80 Albumin/Globulin Ratio 1.07 Amylase Level 102 # Lipase 277 Bedside Glucose 215 204 176 Test 08/28/18 20:38 Bedside Glucose 161 Medications Current Medications Ondansetron HCl (Zofran Inj) 4 mg Q6H PRN IV NAUSEA AND/OR VOMITING; Start 08/21/18 at 21:08 Albumin Human 250 ml @ 500 mls/hr PRN PRN IV CVP< 8, OR SBP<90; Start 08/21/18 at 21:08 Clopidogrel Bisulfate (plaVIX) 75 mg DAILY NGT Last administered on 08/28/18 09:13; Admin Dose 75 MG; Start 08/21/18 at 21:08 Levalbuterol (Xopenex Neb) 1.25 mg Q6H RESP THERAPY HHN Last administered on 08/29/18 01:24; Admin Dose 1.25 MG; Start 08/21/18 at 21:08 Ipratropium [place] (Atrovent 0.02% (Neb)) 0.5 mg Q6H RESP THERAPY HHN Last administered on 08/29/18 01:24; Admin Dose 0.5 MG; Start 08/21/18 at 21:08 Diagnostic Test (Pha) (Accu-Chek) 1 ea 02 XX Last administered on 08/28/18at 02:30; Admin Dose 1 EA; Start 08/21/18 at 21:08 Miscellaneous Information 1 ea NOTE XX ; Start 08/21/18 at 21:08 Glucose (Glutose) 15 gm Q15M PRN PO DECREASED GLUCOSE; Start 08/21/18 at 21:08 Glucose (Glutose) 22.5 gm Q15M PRN PO DECREASED GLUCOSE; Start 08/21/18 at 21:08 Dextrose (D50w Syringe) 25 ml Q15M PRN IV DECREASED GLUCOSE; Start 08/21/18 at 21:08 Dextrose (D50w Syringe) 50 ml Q15M PRN IV DECREASED GLUCOSE; Start 08/21/18 at 21:08 Glucagon (Glucagen) 1 mg Q15M PRN IM DECREASED GLUCOSE; Start 08/21/18 at 21:08 Glucose (Glutose) 15 gm Q15M PRN BUCCAL DECREASED GLUCOSE; Start 08/21/18 at 21:08 Furosemide (Lasix) 40 mg DAILY PO Last administered on 08/28/18 09:13; Admin Dose 40 MG; Start 08/21/18 at 21:08 Famotidine (Pepcid) 20 mg DAILY PO Last administered on 08/27/18 08:50; Admin Dose 20 MG; Start 08/21/18 at 21:08 Insulin Aspart (Novolog Insulin Pen) 10 unit WITH MEALS SC Last administered on 08/28/18 08:12; Admin Dose 10 UNIT; Start 08/21/18 at 21:08 Insulin Aspart (Novolog Insulin Pen) NOVOLOG *MODERATE* ALGORITHM WITH MEALS BEDTIME SC Last administered on 08/28/18 08:13; Admin Dose 4 UNIT; Start 08/21/18 at 21:08 Oxycodone/ Acetaminophen (Endocet (10/ 325)) 1 tab Q4H PRN PO MODERATE PAIN L EVEL 4-6 Last administered on 08/28/18 04:14; Admin Dose 1 TAB; Start 08/21/18 at 21:08 Hydralazine HCl (Apresoline) 10 mg Q4H PRN IV SBP >150; Start 08/21/18 at 21:30 Acetaminophen (Tylenol Tab) 650 mg Q3H PRN PO ELEVATED TEMPERATURE Last administered on 08/26/18 15:46; Admin Dose 650 MG; Start 08/21/18 at 22:00 Ascorbic Acid (Vitamin C) 500 mg TID NGT Last administered on 08/28/18 20:36; Admin Dose 500 MG; Start 08/21/18 at 21:49 Carvedilol (Coreg) 12.5 mg BID PO Last administered on 08/28/18 20:37; Admin Dose 12.5 MG; Start 08/21/18 at 21:51 Docusate Sodium (Colace) 250 mg BID PO Last administered on 08/28/18 20:36; Admin Dose 250 MG; Start 08/21/18 at 21:51 Amlodipine Besylate (Norvasc) 5 mg DAILY PO Last administered on 08/27/18 08:51; Admin Dose 5 MG; Start 08/22/18 at 09:00 Magnesium Hydroxide (Milk Of Mag) 30 ml BID PRN PO CONSTIPATION Last administered on 08/22/18 17:19; Admin Dose 30 ML; Start 08/22/18 at 11:00 Lactulose (Enulose) 20 gm DAILY PRN PO CONSTIPATION Last administered on 08/22/18 12:44; Admin Dose 20 GM; Start 08/22/18 at 11:00 Bisacodyl (Dulcolax Supp) 10 mg DAILY PRN [place] CONSTIPATION; Start 08/22/18 at 11:00 Ciprofloxacin (Cipro) 500 mg BID@06,18 NGT Last administered on 08/29/18at 06:24; Admin Dose 500 MG; Start 08/23/18 at 06:36 Morphine Sulfate (morphine) 1 mg Q6H PRN IV SEVERE PAIN LEVEL 7-10; Start 08/23/18 at 07:00 Nitroglycerin (Nitroglycerin (Sl Tab) 0.4 Mg) 1 tab Q5M PRN SL ANGINA; Start 08/24/18 at 11:30 Gabapentin (Neurontin) 100 mg TID PO Last administered on 08/28/18at 20:36; Admin Dose 100 MG; Start 08/25/18 at 13:00 Polyethylene Glycol (Miralax) 17 gm TID PRN PO CONSTIPATION; Start 08/25/18 at 12:00 Insulin Glargine (Lantus) 28 units 2100 SC Last administered on 08/28/18at 20:44; Admin Dose 28 UNITS; Start 08/26/18 at 21:00 Hydromorphone HCl (Dilaudid) 1 mg Q3 PRN IV SEVERE PAIN LEVEL 7-10 Last administered on 08/28/18at 17:37; Admin Dose 1 MG; Start 08/27/18 at 13:00 Assessment/Plan Additional Assessment/Plan rehab- Critical illness myopathy; Lumbar radiculopathy with right lower extremity symptoms. Continue rehab program Coronary artery disease status post 5-vessel CABG. Status post acute respiratory failure. Acute on chronic kidney disease. Oropharyngeal dysphagia on mechanical soft diet-improved h.o. pancreatitis-f/b GI Chronic obstructive pulmonary disease. Diabetes mellitus type 2. Hypertension. Hyperlipidemia. Osteoarthritis affecting multiple joints, including bilateral knees. Diabetic retinopathy. Anemia of chronic disease. Benign prostatic hypertrophy. YARIEL MARIE MD August 29, 2018 06:28
[2018-08-29 07:30] VITALS: BP 128/66; PULSE 61; RESP 20
[2018-08-29] MEDS: INSULIN ASPART [NOVOLOG] 3 ML PEN SC SCH ×7 (07:35→21:00)
[2018-08-29] MEDS: GABAPENTIN 100 MG CAP PO SCH ×3 (10:39→21:16)
[2018-08-29] MEDS: AMLODIPINE 5 MG TAB PO SCH (10:39)
[2018-08-29] MEDS: DOCUSATE SODIUM 250 MG CAP PO SCH ×2 (10:39→21:16)
[2018-08-29] MEDS: FUROSEMIDE 40 MG TAB PO SCH (10:40)
[2018-08-29] MEDS: FAMOTIDINE 20 MG TAB PO SCH (10:40)
[2018-08-29] MEDS: ASCORBIC ACID 500 MG TAB NGT SCH ×3 (10:41→21:16)
[2018-08-29] MEDS: CLOPIDOGREL 75 MG TAB NGT SCH (10:41)
--- NOTE | 2018-08-29 11:24 | CONS ---
Assessment/Plan Assessment/Plan Hospital Course (Demo Recall) Pancreatitis:had an episode few months ago and was hospitalized at [facility]. No gallstones at that time. Not a drinker, TG ok in the past. Resolved Transaminitis: due to above. Improving Acute on chronic diastolic CHF: Now worse after starting IVF for pancreatitis NSTEMI: residual trop elevation likely from CABG. Trend does not suggest ACS. No symptoms. Ankle pain: XR without fracture. Improving Acute on chronic renal failure: Cr baseline 1.6. Worse after CABG.Now ~2 Cardiogenic shock: Transient post op Acute respiratory failure: s/p extubation 08/16 Anemia: from operative blood loss. Required one unit. No active bleeding s/p CABG x5 08/13/18: WINN to LAD, SVG to ramus sequence to obtuse marginal artery, SVG to PDA, SVG to left ventricular extension branch. Difficult case per Dr. Howell with poor targets. CAD: s/p multiple prior PCIs. Cath 08/11/18 with multivessel disease. s/p CABG above Recent left femoral DVT: on Eliquis as outpt. DM HT HL -restart Eliquis 5mg BID -restart lipitor 40mg -lasix 40mg PO daily -continue plavix -coreg 12.5mg BID -amlodipine 5mg Consultation Date/Type/Reason Admit Date/Time August 21, 2018 at 18:31 Initial Consult Date Type of Consult Cardiology Requesting Provider: NERIS BROTHERS MD Date/Time of Note DATE: 08/29/18 TIME: 11:22 24 HR Interval Summary Free Text/Dictation Minimal abd pain. Labs all improved. No cough or SOB Exam/Review of Systems Vital Signs Vitals Vital Signs Date Temp Pulse Resp B/P (MAP) Pulse Ox O2 O2 Flow FiO2 Time Delivery Rate 08/29/18 63 18 94 21 08:00 08/29/18 97.7 128/66 Nasal 2.0 07:30 (86) Cannula Intake and Output 08/28/18 08/28/18 08/29/18 1414:59 22:59 06:59 IntakeIntake Total 1940 ml 300 ml OutputOutput Total 1800 ml 350 ml BalanceBalance 140 ml -50 ml Exam Constitutional: alert, oriented Psych: no complaints, nl mood/affect Neck: No jvd Respiratory: diminished breath sounds; No clear to auscultation Cardiovascular: regular rate and rhythm, edema (1+) Gastrointestinal: soft, non-tender; No distended 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: nl mental status, nl speech Labs Result Diagram: 08/29/18 0637 08/29/18 0637 Results 24hrs Laboratory Tests Test 08/28/18 11:56 08/28/18 17:45 08/28/18 20:38 08/29/18 06:37 Bedside Glucose 204 176 161 White Blood Count 7.1 Red Blood Count 2.86 L Hemoglobin 8.3 L Hematocrit 26.0 L Mean Corpuscular 90.9 Volume Mean Corpuscular 29.0 Hemoglobin Mean Corpuscular 31.9 L Hemoglobin Concent Red Cell Distribution 14.6 H Width Platelet Count 227 Mean Platelet Volume 11.6 H Immature Granulocytes 0.600 H % Neutrophils % 71.0 Lymphocytes % 14.8 L Monocytes % 11.6 H Eosinophils % 1.6 Basophils % 0.4 Nucleated Red Blood 0.0 Cells % Immature Granulocytes 0.040 H # Neutrophils # 5.0 Lymphocytes # 1.1 Monocytes # 0.8 Eosinophils # 0.1 Basophils # 0.0 Nucleated Red Blood 0.0 Cells # Sodium Level 134 L Potassium Level 4.3 Chloride Level 96 L Carbon Dioxide Level 29 Anion Gap 9 Blood Urea Nitrogen 31 H Creatinine 1.58 H Est Glomerular Filtrat Rate mL/min Glucose Level 130 # Calcium Level 8.3 L Magnesium Level 2.0 Iron Level 12 L Total Iron Binding 218 L Capacity Percent Iron 6 L Saturation Total Bilirubin 0.5 Direct Bilirubin 0.00 Indirect Bilirubin 0.5 Aspartate Amino 49 H Transf (AST/SGOT) Alanine 100 H Aminotransferase (ALT/ SGPT) Alkaline Phosphatase 185 H Creatine Kinase 42 Creatine Kinase Index 3.2 Creatinine Kinase MB 1.35 (Mass) Troponin I 0.261 *H Total Protein 5.5 L Albumin 2.8 L Globulin 2.70 Albumin/Globulin Ratio 1.03 Amylase Level 52 Lipase 171 Test 08/29/18 08:07 Bedside Glucose 144 Medications Medications Current Medications Ondansetron HCl (Zofran Inj) 4 mg Q6H PRN IV NAUSEA AND/OR VOMITING; Start 08/21/18 at 21:08 Albumin Human 250 ml @ 500 mls/hr PRN PRN IV CVP< 8, OR SBP<90; Start 08/21/18 at 21:08 Clopidogrel Bisulfate (plaVIX) 75 mg DAILY NGT Last administered on 08/29/18 10:41; Admin Dose 75 MG; Start 08/21/18 at 21:08 Levalbuterol (Xopenex Neb) 1.25 mg Q6H RESP THERAPY HHN Last administered on 08/29/18 07:59; Admin Dose 1.25 MG; Start 08/21/18 at 21:08 Ipratropium [place] (Atrovent 0.02% (Neb)) 0.5 mg Q6H RESP THERAPY HHN Last administered on 08/29/18 07:59; Admin Dose 0.5 MG; Start 08/21/18 at 21:08 Diagnostic Test (Pha) (Accu-Chek) 1 ea 02 XX Last administered on 08/28/18 02:30; Admin Dose 1 EA; Start 08/21/18 at 21:08 Miscellaneous Information 1 ea NOTE XX ; Start 08/21/18 at 21:08 Glucose (Glutose) 15 gm Q15M PRN PO DECREASED GLUCOSE; Start 08/21/18 at 21:08 Glucose (Glutose) 22.5 gm Q15M PRN PO DECREASED GLUCOSE; Start 08/21/18 at 21:08 Dextrose (D50w Syringe) 25 ml Q15M PRN IV DECREASED GLUCOSE; Start 08/21/18 at 21:08 Dextrose (D50w Syringe) 50 ml Q15M PRN IV DECREASED GLUCOSE; Start 08/21/18 at 21:08 Glucagon (Glucagen) 1 mg Q15M PRN IM DECREASED GLUCOSE; Start 08/21/18 at 21:08 Glucose (Glutose) 15 gm Q15M PRN BUCCAL DECREASED GLUCOSE; Start 08/21/18 at 21:08 Furosemide (Lasix) 40 mg DAILY PO Last administered on 08/29/18 10:40; Admin Dose 40 MG; Start 08/21/18 at 21:08 Famotidine (Pepcid) 20 mg DAILY PO Last administered on 08/29/18 10:40; Admin Dose 20 MG; Start 08/21/18 at 21:08 Insulin Aspart (Novolog Insulin Pen) 10 unit WITH MEALS SC Last administered on 08/28/18 08:12; Admin Dose 10 UNIT; Start 08/21/18 at 21:08 Insulin Aspart (Novolog Insulin Pen) NOVOLOG *MODERATE* ALGORITHM WITH MEALS BEDTIME SC Last administered on 08/29/18 08:15; Admin Dose 2 UNIT; Start 08/21/18 at 21:08 Oxycodone/ Acetaminophen (Endocet (10/ 325)) 1 tab Q4H PRN PO MODERATE PAIN LEVEL 4-6 Last administered on 08/28/18 04:14; Admin Dose 1 TAB; Start 08/21/18 at 21:08 Hydralazine HCl (Apresoline) 10 mg Q4H PRN IV SBP >150; Start 08/21/18 at 21:30 Acetaminophen (Tylenol Tab) 650 mg Q3H PRN PO ELEVATED TEMPERATURE Last administered on 08/26/18 15:46; Admin Dose 650 MG; Start 08/21/18 at 22:00 Ascorbic Acid (Vitamin C) 500 mg TID NGT Last administered on 08/29/18 10:41; Admin Dose 500 MG; Start 08/21/18 at 21:49 Carvedilol (Coreg) 12.5 mg BID PO Last administered on 08/29/18 10:41; Admin Dose 12.5 MG; Start 08/21/18 at 21:51 Docusate Sodium (Colace) 250 mg BID PO Last administered on 08/29/18 10:39; Admin Dose 250 MG; Start 08/21/18 at 21:51 Amlodipine Besylate (Norvasc) 5 mg DAILY PO Last administered on 08/29/18 10:39; Admin Dose 5 MG; Start 08/22/18 at 09:00 Magnesium Hydroxide (Milk Of Mag) 30 ml BID PRN PO CONSTIPATION Last administered on 08/22/18 17:19; Admin Dose 30 ML; Start 08/22/18 at 11:00 Lactulose (Enulose) 20 gm DAILY PRN PO CONSTIPATION Last administered on 08/22/18 12:44; Admin Dose 20 GM; Start 08/22/18 at 11:00 Bisacodyl (Dulcolax Supp) 10 mg DAILY PRN [place] CONSTIPATION; Start 08/22/18 at 11:00 Ciprofloxacin (Cipro) 500 mg BID@06,18 NGT Last administered on 08/29/18 06:24; Admin Dose 500 MG; Start 08/23/18 at 06:36 Morphine Sulfate (morphine) 1 mg Q6H PRN IV SEVERE PAIN LEVEL 7-10; Start 08/23/18 at 07:00 Nitroglycerin (Nitroglycerin (Sl Tab) 0.4 Mg) 1 tab Q5M PRN SL ANGINA; Start 08/24/18 at 11:30 Gabapentin (Neurontin) 100 mg TID PO Last administered on 08/29/18at 10:39; Admin Dose 100 MG; Start 08/25/18 at 13:00 Polyethylene Glycol (Miralax) 17 gm TID PRN PO CONSTIPATION; Start 08/25/18 at 12:00 Insulin Glargine (Lantus) 28 units 2100 SC Last administered on 08/28/18at 20:44; Admin Dose 28 UNITS; Start 08/26/18 at 21:00 Hydromorphone HCl (Dilaudid) 1 mg Q3 PRN IV SEVERE PAIN LEVEL 7-10 Last administered on 08/28/18at 17:37; Admin Dose 1 MG; Start 08/27/18 at 13:00 Apixaban (Eliquis) 5 mg BID PO ; Start 08/29/18 at 11:00 Atorvastatin Calcium (Lipitor) 40 mg HS PO ; Start 08/29/18 at 21:00 ALONDRA GILBERT August 29, 2018 11:24
[2018-08-29] MEDS: APIXABAN 5 MG TABLET PO SCH ×2 (12:19→21:17)
--- NOTE | 2018-08-29 13:12 | CONS ---
Assessment/Plan Assessment/Plan Assessment/Plan (Daily) 1. acute kidney injury vs possible baseline CKD II due to ishcemic ATN + Hemodynamics 2. 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 H/o HTN 4. H/o HL 5. H/o DM II 6. H/o CAD with previous stent placement 7. Anemia of chronic disease with iron deficiency Plan: s/p lasix 20mg IV x 1 dose yesterda yBUN/Cr slightly better to 31/1.58, electrolytes stable - On lasix 40mg po daily,continue amlodipine 5 mg po daily, Eliquis 5mg pO BID finished 5 days of IV ferrlecit will follow up Consultation Date/Type/Reason Admit Date/Time August 21, 2018 at 18:31 Initial Consult Date Type of Consult NEPHROLOGY Requesting Provider: NERIS BROTHERS MD Date/Time of Note DATE: 08/29/18 TIME: 13:12 24 HR Interval Summary Free Text/Dictation BUN/Cr improved to 31/1.58, BP stable Exam/Review of Systems Exam Vitals Vital Signs Date Temp Pulse Resp B/P (MAP) Pulse Ox O2 O2 Flow FiO2 Time Delivery Rate 08/29/18 94 2.0 11:37 08/29/18 63 18 21 08:00 08/29/18 97.7 128/66 Nasal 07:30 (86) Cannula Intake and Output 08/28/18 08/28/18 08/29/18 1515:00 23:00 07:00 IntakeIntake Total 1940 ml 300 ml OutputOutput Total 1800 ml 350 ml BalanceBalance 140 ml -50 ml Exam Constitutional: alert, well developed, obese ENMT: nl external ears & nose Neck: non-tender Cardiovascular: nl pulses, other (s1s2) Gastrointestinal: soft, non-tender Musculoskeletal: muscle weakness Extremities: normal pulses 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: other (alert/responsive) Skin: rash or lesions Results Result Diagram: 08/29/1837 08/29/18636 Results 24hrs Laboratory Tests Test 08/28/18 17:45 08/28/18 20:38 08/29/18 06:37 08/29/18 08:07 Bedside Glucose 176 161 144 White Blood Count 7.1 Red Blood Count 2.86 L Hemoglobin 8.3 L Hematocrit 26.0 L Mean Corpuscular 90.9 Volume Mean Corpuscular 29.0 Hemoglobin Mean Corpuscular 31.9 L Hemoglobin Concent Red Cell Distribution 14.6 H Width Platelet Count 227 Mean Platelet Volume 11.6 H Immature Granulocytes 0.600 H % Neutrophils % 71.0 Lymphocytes % 14.8 L Monocytes % 11.6 H Eosinophils % 1.6 Basophils % 0.4 Nucleated Red Blood 0.0 Cells % Immature Granulocytes 0.040 H # Neutrophils # 5.0 Lymphocytes # 1.1 Monocytes # 0.8 Eosinophils # 0.1 Basophils # 0.0 Nucleated Red Blood 0.0 Cells # Sodium Level 134 L Potassium Level 4.3 Chloride Level 96 L Carbon Dioxide Level 29 Anion Gap 9 Blood Urea Nitrogen 31 H Creatinine 1.58 H Est Glomerular Filtrat Rate mL/min Glucose Level 130 # Calcium Level 8.3 L Magnesium Level 2.0 Iron Level 12 L Total Iron Binding 218 L Capacity Percent Iron 6 L Saturation Total Bilirubin 0.5 Direct Bilirubin 0.00 Indirect Bilirubin 0.5 Aspartate Amino 49 H Transf (AST/SGOT) Alanine 100 H Aminotransferase (ALT /SGPT) Alkaline Phosphatase 185 H Creatine Kinase 42 Creatine Kinase Index 3.2 Creatinine Kinase MB 1.35 (Mass) Troponin I 0.261 *H Total Protein 5.5 L Albumin 2.8 L Globulin 2.70 Albumin/Globulin 1.03 Ratio Amylase Level 52 Lipase 171 Test 08/29/18 11:45 Bedside Glucose 163 Medications Medication Current Medications Ondansetron HCl (Zofran Inj) 4 mg Q6H PRN IV NAUSEA AND/OR VOMITING; Start 08/21/18 at 21:08 Albumin Human 250 ml @ 500 mls/hr PRN PRN IV CVP< 8, OR SBP<90; Start 08/21/18 at 21:08 Clopidogrel Bisulfate (plaVIX) 75 mg DAILY NGT Last administered on 08/29/18at 10:41; Admin Dose 75 MG; Start 08/21/18 at 21:08 Levalbuterol (Xopenex Neb) 1.25 mg Q6H RESP THERAPY HHN Last administered on 08/29/18at 07:59; Admin Dose 1.25 MG; Start 08/21/18 at 21:08 Ipratropium [place] (Atrovent 0.02% (Neb)) 0.5 mg Q6H RESP THERAPY HHN Last administered on 5/10/19at 07:59; Admin Dose 0.5 MG; Start 08/21/18 at 21:08 Diagnostic Test (Pha) (Accu-Chek) 1 ea 02 XX Last administered on 08/28/18at 02:30; Admin Dose 1 EA; Start 08/21/18 at 21:08 Miscellaneous Information 1 ea NOTE XX ; Start 08/21/18 at 21:08 Glucose (Glutose) 15 gm Q15M PRN PO DECREASED GLUCOSE; Start 08/21/18 at 21:08 Glucose (Glutose) 22.5 gm Q15M PRN PO DECREASED GLUCOSE; Start 08/21/18 at 21:08 Dextrose (D50w Syringe) 25 ml Q15M PRN IV DECREASED GLUCOSE; Start 08/21/18 at 21:08 Dextrose (D50w Syringe) 50 ml Q15M PRN IV DECREASED GLUCOSE; Start 08/21/18 at 21:08 Glucagon (Glucagen) 1 mg Q15M PRN IM DECREASED GLUCOSE; Start 08/21/18 at 21:08 Glucose (Glutose) 15 gm Q15M PRN BUCCAL DECREASED GLUCOSE; Start 08/21/18 at 21:08 Furosemide (Lasix) 40 mg DAILY PO Last administered on 08/29/18 10:40; Admin Dose 40 MG; Start 08/21/18 at 21:08 Famotidine (Pepcid) 20 mg DAILY PO Last administered on 08/29/18 10:40; Admin Dose 20 MG; Start 08/21/18 at 21:08 Insulin Aspart (Novolog Insulin Pen) 10 unit WITH MEALS SC Last administered on 08/29/18 12:18; Admin Dose 10 UNIT; Start 08/21/18 at 21:08 Insulin Aspart (Novolog Insulin Pen) NOVOLOG *MODERATE* ALGORITHM WITH MEALS BEDTIME SC Last administered on 08/29/18 12:19; Admin Dose 2 UNIT; Start 08/21/18 at 21:08 Oxycodone/ Acetaminophen (Endocet (10/ 325)) 1 tab Q4H PRN PO MODERATE PAIN LEVEL 4-6 Last administered on 08/28/18 04:14; Admin Dose 1 TAB; Start 08/21/18 at 21:08 Hydralazine HCl (Apresoline) 10 mg Q4H PRN IV SBP >150; Start 08/21/18 at 21:30 Acetaminophen (Tylenol Tab) 650 mg Q3H PRN PO ELEVATED TEMPERATURE Last administered on 08/26/18 15:46; Admin Dose 650 MG; Start 08/21/18 at 22:00 Ascorbic Acid (Vitamin C) 500 mg TID NGT Last administered on 08/29/18 12:26; Admin Dose 500 MG; Start 08/21/18 at 21:49 Carvedilol (Coreg) 12.5 mg BID PO Last administered on 08/29/18 10:41; Admin Dose 12.5 MG; Start 08/21/18 at 21:51 Docusate Sodium (Colace) 250 mg BID PO Last administered on 08/29/18 10:39; Admin Dose 250 MG; Start 08/21/18 at 21:51 Amlodipine Besylate (Norvasc) 5 mg DAILY PO Last administered on 08/29/18 10:3 9; Admin Dose 5 MG; Start 08/22/18 at 09:00 Magnesium Hydroxide (Milk Of Mag) 30 ml BID PRN PO CONSTIPATION Last administered on 08/22/18 17:19; Admin Dose 30 ML; Start 08/22/18 at 11:00 Lactulose (Enulose) 20 gm DAILY PRN PO CONSTIPATION Last administered on 08/22/18 12:44; Admin Dose 20 GM; Start 08/22/18 at 11:00 Bisacodyl (Dulcolax Supp) 10 mg DAILY PRN [place] CONSTIPATION; Start 08/22/18 at 11:00 Ciprofloxacin (Cipro) 500 mg BID@06,18 NGT Last administered on 08/29/18 06:24; Admin Dose 500 MG; Start 08/23/18 at 06:36 Morphine Sulfate (morphine) 1 mg Q6H PRN IV SEVERE PAIN LEVEL 7-10; Start 08/23/18 at 07:00 Nitroglycerin (Nitroglycerin (Sl Tab) 0.4 Mg) 1 tab Q5M PRN SL ANGINA; Start 08/24/18 at 11:30 Gabapentin (Neurontin) 100 mg TID PO Last administered on 08/29/18 12:26; Admin Dose 100 MG; Start 08/25/18 at 13:00 Polyethylene Glycol (Miralax) 17 gm TID PRN PO CONSTIPATION; Start 08/25/18 at 12:00 Insulin Glargine (Lantus) 28 units 2100 SC Last administered on 08/28/18 20:44; Admin Dose 28 UNITS; Start 08/26/18 at 21:00 Hydromorphone HCl (Dilaudid) 1 mg Q3 PRN IV SEVERE PAIN LEVEL 7-10 Last administered on 08/28/18at 17:37; Admin Dose 1 MG; Start 08/27/18 at 13:00 Apixaban (Eliquis) 5 mg BID PO Last administered on 08/29/18at 12:19; Admin Dose 5 MG; Start 08/29/18 at 11:00 Atorvastatin Calcium (Lipitor) 40 mg HS PO ; Start 08/29/18 at 21:00 DARRYL SOOD MD August 29, 2018 13:12
[2018-08-29 14:00] VITALS: BP 130/66; PULSE 63; RESP 20
--- NOTE | 2018-08-29 14:02 | PN ---
Date/Time of Note Date/Time of Note DATE: 08/29/18 TIME: 14:01 Assessment/Plan VTE Prophylaxis Risk score (from Nsg)>0 risk: 7 SCD applied (from Ns): No SCD contraindicated: other (on.) Pharmacological prophylaxis: apixaban Lines/Catheters IV [facility]ter [facility]from [facility] Urinary Cath still in place: No Assessment/Plan Assessment/Plan 1. Ischemic heart disease angina three-vessel coronary a. disease.s/p CABG x5 08/13/18: WINN to LAD, SVG to ramus sequence to obtuse marginal artery, SVG to PDA, SVG to left ventricular extension branch. Difficult case per Dr. Howell with poor targets.Vein harvesting and epiaortic scanning of the ascending aorta.CAD: s/p multiple prior PCIs. Cath 08/11/18 with multivessel disease. Now with elevated level of the troponin the second 1 is 1.1. We will get q. 6 hours x 2. The patient denies having the chest pain. 2. Hypertension with congestive heart failure diastolic- improved. 3. Diabetes mellitus type 2 blood sugar better controlled. Continue titration. 4. History of cholecystitis and pancreatitis 5. Acute on chronic kidney disease with baseline creatinine being 1.6 up to 3.5 came down to 2.05 yesterday and 1.95 today. Improved after hydration,now mildly dehydrated; 6. Dyslipidemia better controlled 7. History of nasal bleeding recurrent- stable. 8. Morbid obesity with snoring and apnea and daytime sleepiness 9. BPH with nocturia 10. Low back pain with radiculopathy 11. 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 Status post cataract ectomy 13. Diabetic nephropathy retinopathy and angiopathy and neuropathy. 14. Constipation- improved. 15. Grief reaction after the of her 16. Gastroesophageal reflux disease 17. Deep venous thrombosis of the left saphenous vein, 2-3 months ago;was on Eliquis 5 mg twice daily, stopped: since 08/11/2018. 18. Gastritis 19. COPD. Quit smoking 10years ago. 02sat now 95% with persistent cough. 20. History of nephrolithiasis. 21. Drop of hematocrit; s/p 2 units of prbc tx. 22. Drop of albumone and total protein and mild elevation of lft's. 21. Drop of hematocrit; s/p 2 units of prbc tx. further decline today; hematocrit being the 25 recheck tomorrow. 22. Drop of albumone and total protein and mild elevation of lft's. 23.Myopathy 24.Lethargy 25.Acute on chronic kidney disease, improving 26. Pancreatitis with pain. 27.Unstable gateon. Result Diagram: 08/29/18 0637 08/29/18 0637 Results 24hrs Laboratory Tests Test 08/28/18 17:45 08/28/18 20:38 08/29/18 06:37 08/29/18 08:07 Bedside Glucose 176 161 144 White Blood Count 7.1 Red Blood Count 2.86 L Hemoglobin 8.3 L Hematocrit 26.0 L Mean Corpuscular 90.9 Volume Mean Corpuscular 29.0 Hemoglobin Mean Corpuscular 31.9 L Hemoglobin Concent Red Cell Distribution 14.6 H Width Platelet Count 227 Mean Platelet Volume 11.6 H Immature Granulocytes 0.600 H % Neutrophils % 71.0 Lymphocytes % 14.8 L Monocytes % 11.6 H Eosinophils % 1.6 Basophils % 0.4 Nucleated Red Blood 0.0 Cells % Immature Granulocytes 0.040 H # Neutrophils # 5.0 Lymphocytes # 1.1 Monocytes # 0.8 Eosinophils # 0.1 Basophils # 0.0 Nucleated Red Blood 0.0 Cells # Sodium Level 134 L Potassium Level 4.3 Chloride Level 96 L Carbon Dioxide Level 29 Anion Gap 9 Blood Urea Nitrogen 31 H Creatinine 1.58 H Est Glomerular Filtrat Rate mL/min Glucose Level 130 # Calcium Level 8.3 L Magnesium Level 2.0 Iron Level 12 L Total Iron Binding 218 L Capacity Percent Iron 6 L Saturation Total Bilirubin 0.5 Direct Bilirubin 0.00 Indirect Bilirubin 0.5 Aspartate Amino 49 H Transf (AST/SGOT) Alanine 100 H Aminotransferase (ALT /SGPT) Alkaline Phosphatase 185 H Creatine Kinase 42 Creatine Kinase Index 3.2 Creatinine Kinase MB 1.35 (Mass) Troponin I 0.261 *H Total Protein 5.5 L Albumin 2.8 L Globulin 2.70 Albumin/Globulin 1.03 Ratio Amylase Level 52 Lipase 171 Test 08/29/18 11:45 Bedside Glucose 163 Subjective 24 Hr Interval Summary Free Text/Dictation Decreased epigastric pain with mild nausea. Constitutional: chills, diaphoresis, febrile, poor po, requiring O2; No no complaints, No improved, No disoriented, No requiring IVF, No other Eyes: No no complaints, No pain, No discharge, No redness, No visual change, No other ENT: pain, congestion, discharge, dysphagia; No no complaints, No bleeding, No sore throat, No other Respiratory: cough; No no complaints, No pain, No pleuritic pain, No shortness of breath, No sputum, No wheezing, No other Cardiovascular: chest pain, edema, lightheadedness, orthopenea, palpitations; No no complaints, No paroxysmal nocturnal dyspnea, No other Gastrointestinal: pain, constipation, decreased appetite, nausea; No no complaints, No blood, No diarrhea, No flatus, No passing stool, No vomiting, No other Genitourinary: dysuria, discharge; No no complaints, No bleeding, No flank pain, No hematuria, No other Musculoskeletal: back pain, bone/joint pain, neck pain; No no complaints, No restricted range of motion, No swelling, No other Skin: laceration, rash; No no complaints, No bruising, No erythema, No pruritis, No skin lesions, No other Neurologic: dizziness; No no complaints, No confusion, No focal-weakness, No headache, No syncope, No seizure, No other Endocrine: dry skin; No no complaints, No polyuria, No polydypsia, No temp intolerance, No other Psychological: anxiety; No no complaints, No nl mood/affect, No confusion, No depression, No suici jhonny, No other Exam/Review of Systems Exam Vitals Vital Signs Date Temp Pulse Resp B/P (MAP) Pulse Ox O2 O2 Flow FiO2 Time Delivery Rate 08/29/18 66 18 Nasal 2.0 28 13:53 Cannula 08/29/18 94 11:37 08/29/18 97.7 128/66 07:30 (86) Intake and Output 08/28/18 08/28/18 08/29/18 1515:00 23:00 07:00 IntakeIntake Total 1940 ml 300 ml OutputOutput Total 1800 ml 350 ml BalanceBalance 140 ml -50 ml Constitutional: alert, oriented, well developed, distress, frail, obese Psych: anxiety, depression; No no complaints, No nl mood/affect, No confusion, No suicidal, No other Head: normocephalic, atraumatic; No lacerations, No hematomas, No other Eyes: EOMI, nl lids, PERRL; No nl conjunctiva, No nl sclera, No icteric, No fundi, disc, No other ENMT: nl nasal mucosa & septum; No nl external ears & nose, No nl lips & teeth, No mucosa pink and moist, No intubated, No tympanic membranes, No other Neck: jvd, bruits, thyromegaly; No supple, No non-tender, No masses, No nuchal rigidity, No other Respiratory: normal air movement, congested cough, diminished breath sounds; No clear to auscultation, No crackles/rales, No intercostal retraction, No labored breathing, No respirations, No tactile fremitus, No wheezing, No other Cardiovascular: regular rate and rhythm, bruits, edema, systolic murmur; No nl pulses, No diastolic murmur, No gallop, No irregular rhythm, No jugular venous distention (JVD), No murmurs/extra sounds, No rub, No S3, No S4, No other Gastrointestinal: soft, nl liver, spleen, bowel sounds, distended, rebound or guarding; No non-tender, No ascites, No firm, No hepatomegaly, No mass, No splenomegaly, No surgical scars, No tender, No other Genitourinary - Male: nl penis, nl scrotum; No CVA tenderness, No discharge, No other Musculoskeletal: nl extremities to inspection, nl gait and stance, joint tenderness (right ankle medially.); No muscle tone, No muscle weakness, No range of motion, No spine non-tender, No swelling, No other Extremities: No normal pulses, No calf tenderness, No cyanosis, No clubbing, No edema, No pitting pedal edema, No palpable cord, No tenderness, No other 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: MACHINE MOVER II-XII intact; No nl mental status, No nl speech, No nl strength, No confused, No DTR's symmetric, No focal weakness, No lethargic, No numbness, No reflexes, No unresponsive, No other Results Results 24hrs Laboratory Tests Test 08/28/18 17:45 08/28/18 20:38 08/29/18 06:37 08/29/18 08:07 Bedside Glucose 176 161 144 White Blood Count 7.1 Red Blood Count 2.86 L Hemoglobin 8.3 L Hematocrit 26.0 L Mean Corpuscular 90.9 Volume Mean Corpuscular 29.0 Hemoglobin Mean Corpuscular 31.9 L Hemoglobin Concent Red Cell Distribution 14.6 H Width Platelet Count 227 Mean Platelet Volume 11.6 H Immature Granulocytes 0.600 H % Neutrophils % 71.0 Lymphocytes % 14.8 L Monocytes % 11.6 H Eosinophils % 1.6 Basophils % 0.4 Nucleated Red Blood 0.0 Cells % Immature Granulocytes 0.040 H # Neutrophils # 5.0 Lymphocytes # 1.1 Monocytes # 0.8 Eosinophils # 0.1 Basophils # 0.0 Nucleated Red Blood 0.0 Cells # Sodium Level 134 L Potassium Level 4.3 Chloride Level 96 L Carbon Dioxide Level 29 Anion Gap 9 Blood Urea Nitrogen 31 H Creatinine 1.58 H Est Glomerular Filtrat Rate mL/min Glucose Level 130 # Calcium Level 8.3 L Magnesium Level 2.0 Iron Level 12 L Total Iron Binding 218 L Capacity Percent Iron 6 L Saturation Total Bilirubin 0.5 Direct Bilirubin 0.00 Indirect Bilirubin 0.5 Aspartate Amino 49 H Transf (AST/SGOT) Alanine 100 H Aminotransferase (ALT /SGPT) Alkaline Phosphatase 185 H Creatine Kinase 42 Creatine Kinase Index 3.2 Creatinine Kinase MB 1.35 (Mass) Troponin I 0.261 *H Total Protein 5.5 L Albumin 2.8 L Globulin 2.70 Albumin/Globulin 1.03 Ratio Amylase Level 52 Lipase 171 Test 08/29/18 11:45 Bedside Glucose 163 Medications Medication Current Medications Ondansetron HCl (Zofran Inj) 4 mg Q6H PRN IV NAUSEA AND/OR VOMITING; Start 08/21/18 at 21:08 Albumin Human 250 ml @ 500 mls/hr PRN PRN IV CVP< 8, OR SBP<90; Start 08/21/18 at 21:08 Clopidogrel Bisulfate (plaVIX) 75 mg DAILY NGT Last administered on 08/29/18at 10:41; Admin Dose 75 MG; Start 08/21/18 at 21:08 Levalbuterol (Xopenex Neb) 1.25 mg Q6H RESP THERAPY HHN Last administered on 08/29/18at 07:59; Admin Dose 1.25 MG; Start 08/21/18 at 21:08 Ipratropium [place] (Atrovent 0.02% (Neb)) 0.5 mg Q6H RESP THERAPY HHN Last administered on 08/29/18 07:59; Admin Dose 0.5 MG; Start 08/21/18 at 21:08 Diagnostic Test (Pha) (Accu-Chek) 1 ea 02 XX Last administered on 08/28/18at 02:30; Admin Dose 1 EA; Start 08/21/18 at 21:08 Miscellaneous Information 1 ea NOTE XX ; Start 08/21/18 at 21:08 Glucose (Glutose) 15 gm Q15M PRN PO DECREASED GLUCOSE; Start 08/21/18 at 21:08 Glucose (Glutose) 22.5 gm Q15M PRN PO DECREASED GLUCOSE; Start 08/21/18 at 21:08 Dextrose (D50w Syringe) 25 ml Q15M PRN IV DECREASED GLUCOSE; Start 08/21/18 at 21:08 Dextrose (D50w Syringe) 50 ml Q15M PRN IV DECREASED GLUCOSE; Start 08/21/18 at 21:08 Glucagon (Glucagen) 1 mg Q15M PRN IM DECREASED GLUCOSE; Start 08/21/18 at 21:08 Glucose (Glutose) 15 gm Q15M PRN BUCCAL DECREASED GLUCOSE; Start 08/21/18 at 21:08 Furosemide (Lasix) 40 mg DAILY PO Last administered on 08/29/18 10:40; Admin Dose 40 MG; Start 08/21/18 at 21:08 Famotidine (Pepcid) 20 mg DAILY PO Last administered on 08/29/18 10:40; Admin Dose 20 MG; Start 08/21/18 at 21:08 Insulin Aspart (Novolog Insulin Pen) 10 unit WITH MEALS SC Last administered on 08/29/18 12:18; Admin Dose 10 UNIT; Start 08/21/18 at 21:08 Insulin Aspart (Novolog Insulin Pen) NOVOLOG *MODERATE* ALGORITHM WITH MEALS BEDTIME SC Last administered on 08/29/18 12:19; Admin Dose 2 UNIT; Start 08/21/18 at 21:08 Oxycodone/ Acetaminophen (Endocet (10/ 325)) 1 tab Q4H PRN PO MODERATE PAIN LEVEL 4-6 Last administered on 08/28/18 04:14; Admin Dose 1 TAB; Start 08/21/18 at 21:08 Hydralazine HCl (Apresoline) 10 mg Q4H PRN IV SBP >150; Start 08/21/18 at 21:30 Acetaminophen (Tylenol Tab) 650 mg Q3H PRN PO ELEVATED TEMPERATURE Last administered on 08/26/18 15:46; Admin Dose 650 MG; Start 08/21/18 at 22:00 Ascorbic Acid (Vitamin C) 500 mg TID NGT Last administered on 08/29/18 12:26; Admin Dose 500 MG; Start 08/21/18 at 21:49 Carvedilol (Coreg) 12.5 mg BID PO Last administered on 08/29/18 10:41; Admin Dose 12.5 MG; Start 08/21/18 at 21:51 Docusate Sodium (Colace) 250 mg BID PO Last administered on 08/29/18 10:39; Admin Dose 250 MG; Start 08/21/18 at 21:51 Amlodipine Besylate (Norvasc) 5 mg DAILY PO Last administered on 08/29/18 10:39; Admin Dose 5 MG; Start 08/22/18 at 09:00 Magnesium Hydroxide (Milk Of Mag) 30 ml BID PRN PO CONSTIPATION Last administered on 08/22/18 17:19; Admin Dose 30 ML; Start 08/22/18 at 11:00 Lactulose (Enulose) 20 gm DAILY PRN PO CONSTIPATION Last administered on 08/22/18 12:44; Admin Dose 20 GM; Start 08/22/18 at 11:00 Bisacodyl (Dulcolax Supp) 10 mg DAILY PRN [place] CONSTIPATION; Start 08/22/18 at 11:00 Ciprofloxacin (Cipro) 500 mg BID@,18 NGT Last administered on 08/29/18 06:24; Admin Dose 500 MG; Start 08/23/18 at 06:36 Morphine Sulfate (morphine) 1 mg Q6H PRN IV SEVERE PAIN LEVEL 7-10; Start 08/23/18 at 07:00 Nitroglycerin (Nitroglycerin (Sl Tab) 0.4 Mg) 1 tab Q5M PRN SL ANGINA; Start 08/24/18 at 11:30 Gabapentin (Neurontin) 100 mg TID PO Last administered on 08/29/18 12:26; Admin Dose 100 MG; Start 08/25/18 at 13:00 Polyethylene Glycol (Miralax) 17 gm TID PRN PO CONSTIPATION; Start 08/25/18 at 12:00 Insulin Glargine (Lantus) 28 units 2100 SC Last administered on 08/28/18at 20:44; Admin Dose 28 UNITS; Start 08/26/18 at 21:00 Hydromorphone HCl (Dilaudid) 1 mg Q3 PRN IV SEVERE PAIN LEVEL 7-10 Last administered on 08/28/18at 17:37; Admin Dose 1 MG; Start 08/27/18 at 13:00 Apixaban (Eliquis) 5 mg BID PO Last administered on 08/29/18at 12:19; Admin Dose 5 MG; Start 08/29/18 at 11:00 Atorvastatin Calcium (Lipitor) 40 mg HS PO ; Start 08/29/18 at 21:00 NERIS BROTHERS MD August 29, 2018 14:02
[2018-08-29] MEDS: ALBUMIN HUMAN 25% 100 ML IV SCH ×2 (16:57→22:47)
[2018-08-29 19:20] VITALS: BP 128/63; PULSE 61; RESP 18
[2018-08-29] MEDS: ATORVASTATIN 40 MG TAB PO SCH (21:16)
[2018-08-29] MEDS: INSULIN GLARGINE [LANTus] (100 UNITS/ML) SYG SC SCH (21:28)
[2018-08-29] MEDS ORDERED: SOD FERRIC GLUC COMPLX 125 MG in SOD CHLORIDE 0.9% 100 ML IVPB SCH (23:00)
[2018-08-30] MEDS: LEVALBUTEROL (NEB) 1.25 MG/0.5 ML AMP HHN SCH ×4 (01:13→20:00)
[2018-08-30] MEDS: IPRATROPIUM (NEB) 0.5 MG/2.5 ML AMP HHN SCH ×4 (01:13→20:00)
[2018-08-30 02:00] VITALS: BP 134/67; PULSE 64; RESP 18
[2018-08-30] MEDS: ACCU-CHEK XX SCH (02:00)
[2018-08-30] MEDS: CIPROFLOXACIN 500 MG TAB NGT SCH (06:53)
[2018-08-30 07:00] VITALS: BP 131/72; PULSE 52; RESP 18
--- NOTE | 2018-08-30 07:28 | PN ---
Date/Time of Note Date/Time of Note DATE: 08/30/18 TIME: 07:25 Subjective AWAKE ALERT, - SOB Objective Vital Signs Date Temp Pulse Resp B/P (MAP) Pulse Ox O2 O2 Flow FiO2 Time Delivery Rate 08/30/18 97.0 64 18 134/67 95 Nasal 2.0 02:00 (89) Cannula 08/29/18 28 13:53 Intake and Output 08/29/18 08/29/18 08/30/18 1515:00 23:00 07:00 IntakeIntake Total 940 ml 1200 ml OutputOutput Total 150 ml 250 ml BalanceBalance -150 ml 690 ml 1200 ml Exam LUNGS DECREASED BASES TRACE EDEMA MOTOR GOOD CLOF BED MOB /X T /GAIT MOD A FWW Results/Medications Result Diagram: 08/29/1837 08/29/1837 Results 24 hrs Laboratory Tests Test 08/29/18 08:07 08/29/18 11:45 08/29/18 16:51 08/29/18 21:19 Bedside Glucose 144 163 149 111 Medications Current Medications Ondansetron HCl (Zofran Inj) 4 mg Q6H PRN IV NAUSEA AND/OR VOMITING; Start 08/21 at 21:08 Albumin Human 250 ml @ 500 mls/hr PRN PRN IV CVP< 8, OR SBP<90; Start 08/21/18 at 21:08 Clopidogrel Bisulfate (plaVIX) 75 mg DAILY NGT Last administered on 08/29/18at 10:41; Admin Dose 75 MG; Start 08/21/18 at 21:08 Levalbuterol (Xopenex Neb) 1.25 mg Q6H RESP THERAPY HHN Last administered on 08/29/18at 07:59; Admin Dose 1.25 MG; Start 08/21/18 at 21:08 Ipratropium [place] (Atrovent 0.02% (Neb)) 0.5 mg Q6H RESP THERAPY HHN Last administered on 08/29/18at 07:59; Admin Dose 0.5 MG; Start 08/21/18 at 21:08 Diagnostic Test (Pha) (Accu-Chek) 1 ea 02 XX Last administered on 08/28/18at 02: 30; Admin Dose 1 EA; Start 08/21/18 at 21:08 Miscellaneous Information 1 ea NOTE XX ; Start 08/21/18 at 21:08 Glucose (Glutose) 15 gm Q15M PRN PO DECREASED GLUCOSE; Start 08/21/18 at 21:08 Glucose (Glutose) 22.5 gm Q15M PRN PO DECREASED GLUCOSE; Start 08/21/18 at 21:08 Dextrose (D50w Syringe) 25 ml Q15M PRN IV DECREASED GLUCOSE; Start 08/21/18 at 21:08 Dextrose (D50w Syringe) 50 ml Q15M PRN IV DECREASED GLUCOSE; Start 08/21/18 at 21:08 Glucagon (Glucagen) 1 mg Q15M PRN IM DECREASED GLUCOSE; Start 08/21/18 at 21:08 Glucose (Glutose) 15 gm Q15M PRN BUCCAL DECREASED GLUCOSE; Start 08/21/18 at 21:08 Furosemide (Lasix) 40 mg DAILY PO Last administered on 08/29/18 10:40; Admin Dose 40 MG; Start 08/21/18 at 21:08 Famotidine (Pepcid) 20 mg DAILY PO Last administered on 08/29/18 10:40; Admin Dose 20 MG; Start 08/21/18 at 21:08 Insulin Aspart (Novolog Insulin Pen) 10 unit WITH MEALS SC Last administered on 08/29/18 17:11; Admin Dose 10 UNIT; Start 08/21/18 at 21:08 Insulin Aspart (Novolog Insulin Pen) NOVOLOG *MODERATE* ALGORITHM WITH MEALS BEDTIME SC Last administered on 08/29/18 17:09; Admin Dose 2 UNIT; Start 08/21/18 at 21:08 Oxycodone/ Acetaminophen (Endocet (10/ 325)) 1 tab Q4H PRN PO MODERATE PAIN LEVEL 4-6 Last administered on 08/28/18 04:14; Admin Dose 1 TAB; Start 08/21/18 at 21:08 Hydralazine HCl (Apresoline) 10 mg Q4H PRN IV SBP >150; Start 08/21/18 at 21:30 Acetaminophen (Tylenol Tab) 650 mg Q3H PRN PO ELEVATED TEMPERATURE Last administered on 08/26/18at 15:46; Admin Dose 650 MG; Start 08/21/18 at 22:00 Ascorbic Acid (Vitamin C) 500 mg TID NGT Last administered on 08/29/18at 21:16; Admin Dose 500 MG; Start 08/21/18 at 21:49 Carvedilol (Coreg) 12.5 mg BID PO Last administered on 08/29/18 21:17; Admin Dose 12.5 MG; Start 08/21/18 at 21:51 Docusate Sodium (Colace) 250 mg BID PO Last administered on 08/29/18 21:16; Admin Dose 250 MG; Start 08/21/18 at 21:51 Amlodipine Besylate (Norvasc) 5 mg DAILY PO Last administered on 08/29/18 10:39; Admin Dose 5 MG; Start 08/22/18 at 09:00 Magnesium Hydroxide (Milk Of Mag) 30 ml BID PRN PO CONSTIPATION Last administered on 08/22/18 17:19; Admin Dose 30 ML; Start 08/22/18 at 11:00 Lactulose (Enulose) 20 gm DAILY PRN PO CONSTIPATION Last administered on 08/22/18 12:44; Admin Dose 20 GM; Start 08/22/18 at 11:00 Bisacodyl (Dulcolax Supp) 10 mg DAILY PRN [place] CONSTIPATION; Start 08/22/18 at 11:00 Morphine Sulfate (morphine) 1 mg Q6H PRN IV SEVERE PAIN LEVEL 7-10; Start 08/23/18 at 07:00 Nitroglycerin (Nitroglycerin (Sl Tab) 0.4 Mg) 1 tab Q5M PRN SL ANGINA; Start 08/24/18 at 11:30 Gabapentin (Neurontin) 100 mg TID PO Last administered on 08/29/18 21:16; Admin Dose 100 MG; Start 08/25/18 at 13:00 Polyethylene Glycol (Miralax) 17 gm TID PRN PO CONSTIPATION; Start 08/25/18 at 12:00 Insulin Glargine (Lantus) 28 units 2100 SC Last administered on 08/29/18 21:28; Admin Dose 28 UNITS; Start 08/26/18 at 21:00 Hydromorphone HCl (Dilaudid) 1 mg Q3 PRN IV SEVERE PAIN LEVEL 7-10 Last administered on 08/28/18 17:37; Admin Dose 1 MG; Start 08/27/18 at 13:00 Apixaban (Eliquis) 5 mg BID PO Last administered on 08/29/18 21:17; Admin Dose 5 MG; Start 08/29/18 at 11:00 Atorvastatin Calcium (Lipitor) 40 mg HS PO Last administered on 08/29/18at 21:16; Admin Dose 40 MG; Start 08/29/18 at 21:00 Ciprofloxacin (Cipro) 500 mg BID@06,18 NGT Last administered on 08/30/18at 06:53; Admin Dose 500 MG; Start 08/29/18 at 18:00; Stop 08/30/18 at 09:00 Albumin Human 100 ml @ 100 mls/hr Q8H IV Last administered on 08/29/18at 22:47; Admin Dose 100 MLS/HR; Start 08/29/18 at 15:30; Stop 08/30/18 at 08:29 Ferric Sodium Gluconate Complex 125 mg/Sodium Chloride 110 ml @ 110 mls/hr DAILY@1300 IVPB Last administered on 08/30/18at 00:01; Admin Dose 110 MLS/HR; Start 08/29/18 at 23:00; Stop 09/02/18 at 13:59 Assessment/Plan Additional Assessment/Plan rehab- Critical illness myopathy; Lumbar radiculopathy with right lower extremity symptoms. Continue rehab therapies MAKING GAINS MOTIVATED Coronary artery disease status post 5-vessel CABG. Status post acute respiratory failure. Acute on chronic kidney disease. Oropharyngeal dysphagia on mechanical soft diet-improved h.o. pancreatitis-f/b GI Chronic obstructive pulmonary disease. Diabetes mellitus type 2. Hypertension. Hyperlipidemia. Osteoarthritis affecting multiple joints, including bilateral knees. Diabetic retinopathy. Anemia of chronic disease.HCT 26 STABLE Benign prostatic hypertrophy. UTI PO CIPRO CHERYL MARIE MD August 30, 2018 07:28
[2018-08-30] MEDS: INSULIN ASPART [NOVOLOG] 3 ML PEN SC SCH ×7 (07:35→21:00)
[2018-08-30] MEDS: ALBUMIN HUMAN 25% 100 ML IV SCH (08:13)
[2018-08-30] MEDS: FAMOTIDINE 20 MG TAB PO SCH (08:16)
[2018-08-30] MEDS: OXYCODONE/ACETAMINOPHEN (10/325) TAB PO PRN (08:16)
[2018-08-30] MEDS: APIXABAN 5 MG TABLET PO SCH ×2 (08:16→20:45)
[2018-08-30] MEDS: DOCUSATE SODIUM 250 MG CAP PO SCH ×2 (08:16→20:45)
[2018-08-30] MEDS: ASCORBIC ACID 500 MG TAB NGT SCH ×3 (08:16→20:45)
[2018-08-30] MEDS: CLOPIDOGREL 75 MG TAB NGT SCH (08:16)
[2018-08-30] MEDS: GABAPENTIN 100 MG CAP PO SCH ×3 (08:17→20:46)
[2018-08-30] MEDS: FUROSEMIDE 40 MG TAB PO SCH (08:17)
[2018-08-30] MEDS: AMLODIPINE 5 MG TAB PO SCH (08:17)
[2018-08-30 09:48] VITALS: BP 118/70; PULSE 60; RESP 18
[2018-08-30 09:55] VITALS: BP 120/70; PULSE 61; RESP 18
[2018-08-30] MEDS ORDERED: SOD FERRIC GLUC COMPLX 125 MG in SOD CHLORIDE 0.9% 100 ML IVPB SCH (13:00)
--- NOTE | 2018-08-30 13:21 | CONS ---
Assessment/Plan Assessment/Plan Assessment/Plan (Daily) 1. acute kidney injury vs possible baseline CKD II due to ishcemic ATN + Hemodynamics 2. 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 H/o HTN 4. H/o HL 5. H/o DM II 6. H/o CAD with previous stent placement 7. Anemia of chronic disease with iron deficiency s/p 5 days of IV iron Plan: BUN/Cr slightly better to 31/1.58, electrolytes stable on labs on 08/29/18 - On lasix 40mg po daily,continue - no labs today to review yet amlodipine 5 mg po daily, Eliquis 5mg pO BID will follow up Consultation Date/Type/Reason Admit Date/Time August 21, 2018 at 18:31 Initial Consult Date Type of Consult NEPHROLOGY Requesting Provider: NERIS BROTHERS MD Date/Time of Note DATE: 08/30/18 TIME: 13:21 Exam/Review of Systems Exam Vitals Vital Signs Date Temp Pulse Resp B/P (MAP) Pulse Ox O2 O2 Flow FiO2 Time Delivery Rate 08/30/18 61 18 120/70 94 Nasal 2.0 09:55 (87) Cannula 08/30/18 98.0 07:00 08/29/18 28 13:53 Intake and Output 08/29/18 08/29/18 08/30/18 1515:00 23:00 07:00 IntakeIntake Total 940 ml 1200 ml OutputOutput Total 150 ml 250 ml BalanceBalance -150 ml 690 ml 1200 ml Results Result Diagram: 08/29/18 0637 08/29/18 0637 Results 24hrs Laboratory Tests Test 08/29/18 16:51 08/29/18 21:19 08/30/18 08:01 08/30/18 11:57 Bedside Glucose 149 111 122 117 Medications Medication Current Medications Ondansetron HCl (Zofran Inj) 4 mg Q6H PRN IV NAUSEA AND/OR VOMITING; Start 08/21/18 at 21:08 Albumin Human 250 ml @ 500 mls/hr PRN PRN IV CVP< 8, OR SBP<90; Start 08/21/18 at 21:08 Clopidogrel Bisulfate (plaVIX) 75 mg DAILY NGT Last administered on 08/30/18at 08:16; Admin Dose 75 MG; Start 08/21/18 at 21:08 Levalbuterol (Xopenex Neb) 1.25 mg Q6H RESP THERAPY HHN Last administered on 08/29/18at 07:59; Admin Dose 1.25 MG; Start 08/21/18 at 21:08 Ipratropium [place] (Atrovent 0.02% (Neb)) 0.5 mg Q6H RESP THERAPY HHN Last administered on 08/29/18at 07:59; Admin Dose 0.5 MG; Start 08/21/18 at 21:08 Diagnostic Test (Pha) (Accu-Chek) 1 ea 02 XX Last administered on 08/28/18at 02:30; Admin Dose 1 EA; Start 08/21/18 at 21:08 Miscellaneous Information 1 ea NOTE XX ; Start 08/21/18 at 21:08 Glucose (Glutose) 15 gm Q15M PRN PO DECREASED GLUCOSE; Start 08/21/18 at 21:08 Glucose (Glutose) 22.5 gm Q15M PRN PO DECREASED GLUCOSE; Start 08/21/18 at 21:08 Dextrose (D50w Syringe) 25 ml Q15M PRN IV DECREASED GLUCOSE; Start 08/21/18 at 21:08 Dextrose (D50w Syringe) 50 ml Q15M PRN IV DECREASED GLUCOSE; Start 08/21/18 at 21:08 Glucagon (Glucagen) 1 mg Q15M PRN IM DECREASED GLUCOSE; Start 08/21/18 at 21:08 Glucose (Glutose) 15 gm Q15M PRN BUCCAL DECREASED GLUCOSE; Start 08/21/18 at 21:08 Furosemide (Lasix) 40 mg DAILY PO Last administered on 08/30/18at 08:17; Admin Dose 40 MG; Start 08/21/18 at 21:08 Famotidine (Pepcid) 20 mg DAILY PO Last administered on 08/30/18at 08:16; Admin Dose 20 MG; Start 08/21/18 at 21:08 Insulin Aspart (Novolog Insulin Pen) 10 unit WITH MEALS SC Last administered on 08/30/18at 12:24; Admin Dose 10 UNIT; Start 08/21/18 at 21:08 Insulin Aspart (Novolog Insulin Pen) NOVOLOG *MODERATE* ALGORITHM WITH MEALS BEDTIME SC Last administered on 08/29/18at 17:09; Admin Dose 2 UNIT; Start 08/21/18 at 21:08 Oxycodone/ Acetaminophen (Endocet (10/ 325)) 1 tab Q4H PRN PO MODERATE PAIN LEVEL 4-6 Last administered on 08/30/18 08:16; Admin Dose 1 TAB; Start 08/21/18 at 21:08 Hydralazine HCl (Apresoline) 10 mg Q4H PRN IV SBP >150; Start 08/21/18 at 21:30 Acetaminophen (Tylenol Tab) 650 mg Q3H PRN PO ELEVATED TEMPERATURE Last administered on 08/26/18 15:46; Admin Dose 650 MG; Start 08/21/18 at 22:00 Ascorbic Acid (Vitamin C) 500 mg TID NGT Last administered on 08/30/18 13:02; Admin Dose 500 MG; Start 08/21/18 at 21:49 Carvedilol (Coreg) 12.5 mg BID PO Last administered on 08/30/18 08:17; Admin Dose 12.5 MG; Start 08/21/18 at 21:51 Docusate Sodium (Colace) 250 mg BID PO Last administered on 08/30/18 08:16; Admin Dose 250 MG; Start 08/21/18 at 21:51 Amlodipine Besylate (Norvasc) 5 mg DAILY PO Last administered on 08/30/18 08:17; Admin Dose 5 MG; Start 08/22/18 at 09:00 Magnesium Hydroxide (Milk Of Mag) 30 ml BID PRN PO CONSTIPATION Last administered on 08/22/18 17:19; Admin Dose 30 ML; Start 08/22/18 at 11:00 Lactulose (Enulose) 20 gm DAILY PRN PO CONSTIPATION Last administered on 08/22/18 12:44; Admin Dose 20 GM; Start 08/22/18 at 11:00 Bisacodyl (Dulcolax Supp) 10 mg DAILY PRN [place] CONSTIPATION; Start 08/22/18 at 11:00 Morphine Sulfate (morphine) 1 mg Q6H PRN IV SEVERE PAIN LEVEL 7-10; Start 08/23/18 at 07:00 Nitroglycerin (Nitroglycerin (Sl Tab) 0.4 Mg) 1 tab Q5M PRN SL ANGINA; Start at 11:30 Gabapentin (Neurontin) 100 mg TID PO Last administered on 5/11/19at 13:02; Admin Dose 100 MG; Start 08/25/18 at 13:00 Polyethylene Glycol (Miralax) 17 gm TID PRN PO CONSTIPATION; Start 08/25/18 at 12:00 Insulin Glargine (Lantus) 28 units 2100 SC Last administered on 08/29/18 21:28; Admin Dose 28 UNITS; Start 08/26/18 at 21:00 Hydromorphone HCl (Dilaudid) 1 mg Q3 PRN IV SEVERE PAIN LEVEL 7-10 Last administered on 08/28/18at 17:37; Admin Dose 1 MG; Start 08/27/18 at 13:00 Apixaban (Eliquis) 5 mg BID PO Last administered on 08/30/18 08:16; Admin Dose 5 MG; Start 08/29/18 at 11:00 Atorvastatin Calcium (Lipitor) 40 mg HS PO Last administered on 08/29/18 21:16; Admin Dose 40 MG; Start 08/29/18 at 21:00 Ferric Sodium Gluconate Complex 125 mg/Sodium Chloride 110 ml @ 110 mls/hr DAILY@2300 IVPB ; Start 08/30/18 at 23:00; Stop 09/02/18 at 23:59 DARRYL SOOD MD August 30, 2018 13:21
[2018-08-30 14:00] VITALS: BP 111/58; PULSE 56; RESP 18
--- NOTE | 2018-08-30 17:08 | CONS ---
Assessment/Plan Assessment/Plan Assessment/Plan (Daily) Consultation Assessment/Plan Assessment/Plan Hospital Course (Demo Recall) 73 yo male with h/o severe coronary artery disease, s/p multi vessel CABG, is re ferred to GI to evaluate for abnormal LFTs Interval hx: Amylase, lipase wnl. LFT trending down. 1. Pancreatitis, likely biliary -lipid panel -US of liver pending -NPO -IVF for hydration 2. Transaminitis -elevated alk, alt, ast -monitor qd -US of liver -lipase and amylase -limit hepatatoxic medications 3. Severe coronary artery disease, S/P multi vessel CABG recently - pr cardiology team 4. Diabetes mellitus -per primary team 5. Renal failure -per nephrology team 6. Iron deficiency anemia -monitor HH and for acute GI bleeding, pt is on eliquis and plavix 7. Obesity 8. HTN 9. DM2 10. Fatty liver 11. Hepatosplenomegaly US of liver: 1. Sludge is noted within the gallbladder. There is no gallbladder wall thickening or pericholecystic fluid to suggest acute cholecystitis. 2. No biliary duct dilatation. 3. Fatty change of the liver. 4. Hepatosplenomegaly. 5. Slightly increased bilateral renal cortical echogenicity suggest medical renal disease. 6. Questionable 1.4 cm echogenic cortical lesion in the right kidney without corresponding abnormality seen on the previous CT scan. This is likely artifactual Plan: Consider PO iron supplementation for low Iron and TIBC Monitor LFTs, lipase and amylase. Amylase lipase is within normal limit Clear liquid diet, advance as tolerated Monitor HH and for GI bleeding patient's abnormal LFT may be due to fatty liver We will get MRCP done to rule out pancreatic divisum or bile duct stone Consultation Date/Type/Reason Admit Date/Time August 21, 2018 at 18:31 Initial Consult Date Requesting Provider: NERIS BROTHERS MD Date/Time of Note DATE: 08/30/18 TIME: 17:07 24 HR Interval Summary Constitutional: improved Exam/Review of Systems Exam Vitals Vital Signs Date Temp Pulse Resp B/P (MAP) Pulse Ox O2 O2 Flow FiO2 Time Delivery Rate 08/30/18 2.0 15:43 08/30/18 98.1 56 18 111/58 98 Nasal 14:00 (75) Cannula 08/29/18 28 13:53 Intake and Output 08/29/18 08/29/18 08/30/18 1515:00 23:00 07:00 IntakeIntake Total 940 ml 1200 ml OutputOutput Total 150 ml 250 ml BalanceBalance -150 ml 690 ml 1200 ml Constitutional: alert, oriented, well developed Psych: no complaints, nl mood/affect Head: normocephalic, atraumatic Eyes: nl conjunctiva, EOMI, nl lids, nl sclera, PERRL ENMT: nl external ears & nose, nl lips & teeth, nl nasal mucosa & septum Neck: supple, non-tender Respiratory: clear to auscultation, normal air movement Cardiovascular: regular rate and rhythm, nl pulses Gastrointestinal: soft, nl liver, spleen, non-tender Musculoskeletal: nl extremities to inspection, nl gait and stance Extremities: normal pulses 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: HELP DESK TEAM LEADER II-XII intact, nl mental status, nl speech, nl strength Skin: nl turgor; No rash or lesions Lymph: nl lymph nodes Results Result Diagram: 08/29/1837 08/29/18 0637 Results 24hrs Laboratory Tests Test 08/29/18 21:19 08/30/18 08:01 08/30/18 11:57 Bedside Glucose 111 122 117 Medications Medication Current Medications Ondansetron HCl (Zofran Inj) 4 mg Q6H PRN IV NAUSEA AND/OR VOMITING; Start 08/21/18 at 21:08 Albumin Human 250 ml @ 500 mls/hr PRN PRN IV CVP< 8, OR SBP<90; Start 08/21/18 at 21:08 Clopidogrel Bisulfate (plaVIX) 75 mg DAILY NGT Last administered on 08/30/18at 08:16; Admin Dose 75 MG; Start 08/21/18 at 21:08 Levalbuterol (Xopenex Neb) 1.25 mg Q6H RESP THERAPY HHN Last administered on 08/29/18at 07:59; Admin Dose 1.25 MG; Start 08/21/18 at 21:08 Ipratropium [place] (Atrovent 0.02% (Neb)) 0.5 mg Q6H RESP THERAPY HHN Last administered on 08/29/18at 07:59; Admin Dose 0.5 MG; Start 08/21/18 at 21:08 Diagnostic Test (Pha) (Accu-Chek) 1 ea 02 XX Last administered on 08/28/18at 02:30; Admin Dose 1 EA; Start 08/21/18 at 21:08 Miscellaneous Information 1 ea NOTE XX ; Start 08/21/18 at 21:08 Glucose (Glutose) 15 gm Q15M PRN PO DECREASED GLUCOSE; Start 08/21/18 at 21:08 Glucose (Glutose) 22.5 gm Q15M PRN PO DECREASED GLUCOSE; Start 08/21/18 at 21:08 Dextrose (D50w Syringe) 25 ml Q15M PRN IV DECREASED GLUCOSE; Start 08/21/18 at 21:08 Dextrose (D50w Syringe) 50 ml Q15M PRN IV DECREASED GLUCOSE; Start 08/21/18 at 21:08 Glucagon (Glucagen) 1 mg Q15M PRN IM DECREASED GLUCOSE; Start 08/21/18 at 21:08 Glucose (Glutose) 15 gm Q15M PRN BUCCAL DECREASED GLUCOSE; Start 08/21/18 at 21:08 Furosemide (Lasix) 40 mg DAILY PO Last administered on 08/30/18at 08:17; Admin Dose 40 MG; Start 08/21/18 at 21:08 Famotidine (Pepcid) 20 mg DAILY PO Last administered on 08/30/18at 08:16; Admin Dose 20 MG; Start 08/21/18 at 21:08 Insulin Aspart (Novolog Insulin Pen) 10 unit WITH MEALS SC Last administered on 08/30/18 12:24; Admin Dose 10 UNIT; Start 08/21/18 at 21:08 Insulin Aspart (Novolog Insulin Pen) NOVOLOG *MODERATE* ALGORITHM WITH MEALS BEDTIME SC Last administered on 08/29/18at 17:09; Admin Dose 2 UNIT; Start 08/21/18 at 21:08 Oxycodone/ Acetaminophen (Endocet (10/ 325)) 1 tab Q4H PRN PO MODERATE PAIN LEVEL 4-6 Last administered on 08/30/18at 08:16; Admin Dose 1 TAB; Start 08/21/18 at 21:08 Hydralazine HCl (Apresoline) 10 mg Q4H PRN IV SBP >150; Start 08/21/18 at 21:30 Acetaminophen (Tylenol Tab) 650 mg Q3H PRN PO ELEVATED TEMPERATURE Last administered on 08/26/18at 15:46; Admin Dose 650 MG; Start 08/21/18 at 22:00 Ascorbic Acid (Vitamin C) 500 mg TID NGT Last administered on 08/30/18 13:02; Admin Dose 500 MG; Start 08/21/18 at 21:49 Carvedilol (Coreg) 12.5 mg BID PO Last administered on 08/30/18 08:17; Admin Dose 12.5 MG; Start 08/21/18 at 21:51 Docusate Sodium (Colace) 250 mg BID PO Last administered on 08/30/18 08:16; Admin Dose 250 MG; Start 08/21/18 at 21:51 Amlodipine Besylate (Norvasc) 5 mg DAILY PO Last administered on 08/30/18 08:17; Admin Dose 5 MG; Start 08/22/18 at 09:00 Magnesium Hydroxide (Milk Of Mag) 30 ml BID PRN PO CONSTIPATION Last administe red on 08/22/18 17:19; Admin Dose 30 ML; Start 08/22/18 at 11:00 Lactulose (Enulose) 20 gm DAILY PRN PO CONSTIPATION Last administered on 08/22/18 12:44; Admin Dose 20 GM; Start 08/22/18 at 11:00 Bisacodyl (Dulcolax Supp) 10 mg DAILY PRN [place] CONSTIPATION; Start 08/22/18 at 11:00 Morphine Sulfate (morphine) 1 mg Q6H PRN IV SEVERE PAIN LEVEL 7-10; Start 08/23/18 at 07:00 Nitroglycerin (Nitroglycerin (Sl Tab) 0.4 Mg) 1 tab Q5M PRN SL ANGINA; Start 08/24/18 at 11:30 Gabapentin (Neurontin) 100 mg TID PO Last administered on 08/30/18 13:02; Admin Dose 100 MG; Start 08/25/18 at 13:00 Polyethylene Glycol (Miralax) 17 gm TID PRN PO CONSTIPATION; Start 08/25/18 at 12:00 Insulin Glargine (Lantus) 28 units 2100 SC Last administered on 08/29/18 21:28; Admin Dose 28 UNITS; Start 08/26/18 at 21:00 Hydromorphone HCl (Dilaudid) 1 mg Q3 PRN IV SEVERE PAIN LEVEL 7-10 Last administered on 08/28/18 17:37; Admin Dose 1 MG; Start 08/27/18 at 13:00 Apixaban (Eliquis) 5 mg BID PO Last administered on 08/30/18at 08:16; Admin Dose 5 MG; Start 08/29/18 at 11:00 Atorvastatin Calcium (Lipitor) 40 mg HS PO Last administered on 08/29/18at 21:16; Admin Dose 40 MG; Start 08/29/18 at 21:00 Ferric Sodium Gluconate Complex 125 mg/Sodium Chloride 110 ml @ 110 mls/hr DAILY@2300 IVPB ; Start 08/30/18 at 23:00; Stop 09/02/18 at 23:59 BREN PRABHAKAR MD August 30, 2018 17:08
--- NOTE | 2018-08-30 18:53 | PN ---
Date/Time of Note Date/Time of Note DATE: 08/30/18 TIME: 18:52 Assessment/Plan VTE Prophylaxis Risk score (from Ns)>0 risk: 6 [place] [facility] [place] contraindicated: other Pharmacological prophylaxis: apixaban Lines/Catheters [facility] Type [facility]from [facility] [place] line still needed: No Urinary Cath still in place: No Reason Cath still needed: urinary retention Assessment/Plan Assessment/Plan 1. Ischemic heart disease angina three-vessel coronary a. disease.s/p CABG x5 08/13/18: WINN to LAD, SVG to ramus sequence to obtuse marginal artery, SVG to PDA, SVG to left ventricular extension branch. Difficult case per Dr. Howell with poor targets.Vein harvesting and epiaortic scanning of the ascending aorta.CAD: s/p multiple prior PCIs. Cath 08/11/18 with multivessel disease. Now with elevated level of the troponin the second 1 is 1.1. We will get q. 6 hours x 2. The patient denies having the chest pain. 2. Hypertension with congestive heart failure diastolic- improved. 3. Diabetes mellitus type 2 blood sugar better controlled. Continue titration. 4. History of cholecystitis and pancreatitis 5. Acute on chronic kidney disease with baseline creatinine being 1.6 up to 3.5 came down to 2.05 yesterday and 1.95 today. Improved after hydration,now mildly dehydrated; 6. Dyslipidemia better controlled 7. History of nasal bleeding recurrent- stable. 8. Morbid obesity with snoring and apnea and daytime sleepiness 9. BPH with nocturia 10. Low back pain with radiculopathy 11. 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 Status post cataract ectomy 13. Diabetic nephropathy retinopathy and angiopathy and neuropathy. 14. Constipation- improved. 15. Grief reaction after the of her 16. Gastroesophageal reflux disease 17. Deep venous thrombosis of the left saphenous vein, 2-3 months ago;was on Eliquis 5 mg twice daily, stopped: since 08/11/2018. 18. Gastritis 19. COPD. Quit smoking 10years ago. 02sat now 95% with persistent cough. 20. History of nephrolithiasis. 21. Drop of hematocrit; s/p 2 units of prbc tx. 22. Drop of albumone and total protein and mild elevation of lft's. 21. Drop of hematocrit; s/p 2 units of prbc tx. further decline today; hematocrit being the 25 recheck tomorrow. 22. Drop of albumone and total protein and mild elevation of lft's. 23.Myopathy 24.Lethargy 25.Acute on chronic kidney disease, improving 26. Pancreatitis with pain. 27.Unstable gateon. Result Diagram: 08/29/18 0637 08/29/18 0637 Results 24hrs Laboratory Tests Test 08/29/18 21:19 08/30/18 08:01 08/30/18 11:57 08/30/18 17:25 Bedside Glucose 111 122 117 113 Subjective 24 Hr Interval Summary Free Text/Dictation Today is the first day that I feel appetite. Constitutional: chills, poor po, requiring O2; No no complaints, No improved, No diaphoresis, No disoriented, No febrile, No requiring IVF, No other Eyes: No no complaints, No pain, No discharge, No redness, No visual change, No other ENT: dysphagia; No no complaints, No bleeding, No pain, No congestion, No discharge, No sore throat, No other Respiratory: cough, pleuritic pain, shortness of breath; No no complaints, No pain, No sputum, No wheezing, No other Cardiovascular: chest pain, orthopenea, palpitations; No no complaints, No edema, No lightheadedness, No paroxysmal nocturnal dyspnea, No other Gastrointestinal: constipation, nausea, passing stool; No no complaints, No pain, No blood, No decreased appetite, No diarrhea, No flatus, No vomiting, No other Genitourinary: No no complaints, No bleeding, No dysuria, No discharge, No flank pain, No hematuria, No other Musculoskeletal: back pain, bone/joint pain; No no complaints, No neck pain, No restricted range of motion, No swelling, No other Skin: pruritis; No no complaints, No bruising, No erythema, No laceration, No rash, No skin lesions, No other Neurologic: dizziness; No no complaints, No confusion, No focal-weakness, No headache, No syncope, No seizure, No other Endocrine: No no complaints, No polyuria, No polydypsia, No dry skin, No temp intolerance, No other Lymphatic: No no complaints, No adenopathy, No tender nodes, No lymphadema, No other Psychological: anxiety, depression; No no complaints, No nl mood/affect, No confusion, No suicidal, No other Immunologic: No no complaints, No immunodeficiency, No pruritis, No rhinitis, No urticaria, No other Exam/Review of Systems Exam Vitals Vital Signs Date Temp Pulse Resp B/P (MAP) Pulse Ox O2 O2 Flow FiO2 Time Delivery Rate 08/30/18 2.0 15:43 08/30/18 98.1 56 18 111/58 98 Nasal 14:00 (75) Cannula 08/29/18 28 13:53 Intake and Output 08/29/18 08/29/18 08/30/18 1515:00 23:00 07:00 IntakeIntake Total 940 ml 1200 ml OutputOutput Total 150 ml 250 ml BalanceBalance -150 ml 690 ml 1200 ml Constitutional: alert, oriented, well developed, distress, frail, obese; No non-verbal, No other Psych: nl mood/affect, anxiety; No no complaints, No confusion, No depression, No suicidal, No other Eyes: PERRL, icteric (Pale conjunctiva.) ENMT: nl external ears & nose, nl lips & teeth, nl nasal mucosa & septum Neck: jvd, bruits, nuchal rigidity; No supple, No non-tender, No masses, No thyromegaly, No other Respiratory: normal air movement, diminished breath sounds; No clear to auscultation, No congested cough, No crackles/rales, No intercostal retraction, No labored breathing, No respirations, No tactile fremitus, No wheezing, No other Cardiovascular: regular rate and rhythm, edema, systolic murmur; No nl pulses, No bruits, No diastolic murmur, No gallop, No irregular rhythm, No jugular venous distention (JVD), No murmurs/extra sounds, No rub, No S3, No S4, No other Gastrointestinal: bowel sounds, rebound or guarding (Mildly tender epigastric region right upper quadrant painful mid abdominal area with no rebound no ascitic fluid was detected.); No soft, No nl liver, spleen, No non-tender, No ascites, No distended, No firm, No hepatomegaly, No mass, No splenomegaly, No surgical scars, No tender, No other Musculoskeletal: nl gait and stance (Gait is unsteady he feels weakness of lower extremities difficult to walk without support), joint tenderness, muscle tone (Decreased muscular tone.), muscle weakness; No nl extremities to inspection, No range of motion, No spine non-tender, No swelling, No other Extremities: normal pulses; No calf tenderness, No cyanosis, No clubbing, No edema, No pitting pedal edema, No palpable cord, No tenderness, No other 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: PROGRAM MANAGEMENT INTERN II-XII intact, confused; No nl mental status, No nl speech, No nl strength, No DTR's symmetric, No focal weakness, No lethargic, No numbness, No reflexes, No unresponsive, No other Results Results 24hrs Laboratory Tests Test 08/29/18 21:19 08/30/18 08:01 08/30/18 11:57 08/30/18 17:25 Bedside Glucose 111 122 117 113 Medications Medication Current Medications Ondansetron HCl (Zofran Inj) 4 mg Q6H PRN IV NAUSEA AND/OR VOMITING; Start 08/21/18 at 21:08 Albumin Human 250 ml @ 500 mls/hr PRN PRN IV CVP< 8, OR SBP<90; Start 08/21/18 at 21:08 Clopidogrel Bisulfate (plaVIX) 75 mg DAILY NGT Last administered on 08/30/18at 08:16; Admin Dose 75 MG; Start 08/21/18 at 21:08 Levalbuterol (Xopenex Neb) 1.25 mg Q6H RESP THERAPY HHN Last administered on 08/29/18at 07:59; Admin Dose 1.25 MG; Start 08/21/18 at 21:08 Ipratropium [place] (Atrovent 0.02% (Neb)) 0.5 mg Q6H RESP THERAPY HHN Last administered on 08/29/18at 07:59; Admin Dose 0.5 MG; Start 08/21/18 at 21:08 Diagnostic Test (Pha) (Accu-Chek) 1 ea 02 XX Last administered on 08/28/18at 02:30; Admin Dose 1 EA; Start 08/21/18 at 21:08 Miscellaneous Information 1 ea NOTE XX ; Start 08/21/18 at 21:08 Glucose (Glutose) 15 gm Q15M PRN PO DECREASED GLUCOSE; Start 08/21/18 at 21:08 Glucose (Glutose) 22.5 gm Q15M PRN PO DECREASED GLUCOSE; Start 08/21/18 at 21:08 Dextrose (D50w Syringe) 25 ml Q15M PRN IV DECREASED GLUCOSE; Start 08/21/18 at 21:08 Dextrose (D50w Syringe) 50 ml Q15M PRN IV DECREASED GLUCOSE; Start 08/21/18 at 21:08 Glucagon (Glucagen) 1 mg Q15M PRN IM DECREASED GLUCOSE; Start 08/21/18 at 21:08 Glucose (Glutose) 15 gm Q15M PRN BUCCAL DECREASED GLUCOSE; Start 08/21/18 at 21:08 Furosemide (Lasix) 40 mg DAILY PO Last administered on 08/30/18 08:17; Admin Dose 40 MG; Start 08/21/18 at 21:08 Famotidine (Pepcid) 20 mg DAILY PO Last administered on 08/30/18 08:16; Admin Dose 20 MG; Start 08/21/18 at 21:08 Insulin Aspart (Novolog Insulin Pen) 10 unit WITH MEALS SC Last administered on 08/30/18 17:28; Admin Dose 10 UNIT; Start 08/21/18 at 21:08 Insulin Aspart (Novolog Insulin Pen) NOVOLOG *MODERATE* ALGORITHM WITH MEALS BEDTIME SC Last administered on 08/29/18 17:09; Admin Dose 2 UNIT; Start 08/21/18 at 21:08 Oxycodone/ Acetaminophen (Endocet (10/ 325)) 1 tab Q4H PRN PO MODERATE PAIN LEVEL 4-6 Last administered on 08/30/18 08:16; Admin Dose 1 TAB; Start 08/21/18 at 21:08 Hydralazine HCl (Apresoline) 10 mg Q4H PRN IV SBP >150; Start 08/21/18 at 21:30 Acetaminophen (Tylenol Tab) 650 mg Q3H PRN PO ELEVATED TEMPERATURE Last administered on 08/26/18 15:46; Admin Dose 650 MG; Start 08/21/18 at 22:00 Ascorbic Acid (Vitamin C) 500 mg TID NGT Last administered on 08/30/18 13:02; Admin Dose 500 MG; Start 08/21/18 at 21:49 Carvedilol (Coreg) 12.5 mg BID PO Last administered on 08/30/18 08:17; Admin Dose 12.5 MG; Start 08/21/18 at 21:51 Docusate Sodium (Colace) 250 mg BID PO Last administered on 08/30/18 08:16; Admin Dose 250 MG; Start 08/21/18 at 21:51 Amlodipine Besylate (Norvasc) 5 mg DAILY PO Last administered on 08/30/18 08:17; Admin Dose 5 MG; Start 08/22/18 at 09:00 Magnesium Hydroxide (Milk Of Mag) 30 ml BID PRN PO CONSTIPATION Last administered on 08/22/18 17:19; Admin Dose 30 ML; Start 08/22/18 at 11:00 Lactulose (Enulose) 20 gm DAILY PRN PO CONSTIPATION Last administered on 08/22/18 12:44; Admin Dose 20 GM; Start 08/22/18 at 11:00 Bisacodyl (Dulcolax Supp) 10 mg DAILY PRN [place] CONSTIPATION; Start 08/22/18 at 11:00 Morphine Sulfate (morphine) 1 mg Q6H PRN IV SEVERE PAIN LEVEL 7-10; Start 08/23/18 at 07:00 Nitroglycerin (Nitroglycerin (Sl Tab) 0.4 Mg) 1 tab Q5M PRN SL ANGINA; Start 08/24/18 at 11:30 Gabapentin (Neurontin) 100 mg TID PO Last administered on 08/30/18 13:02; Admin Dose 100 MG; Start 08/25/18 at 13:00 Polyethylene Glycol (Miralax) 17 gm TID PRN PO CONSTIPATION; Start 08/25/18 at 12:00 Insulin Glargine (Lantus) 28 units 2100 SC Last administered on 08/29/18 21:28; Admin Dose 28 UNITS; Start 08/26/18 at 21:00 Hydromorphone HCl (Dilaudid) 1 mg Q3 PRN IV SEVERE PAIN LEVEL 7-10 Last administered on 08/28/18 17:37; Admin Dose 1 MG; Start 08/27/18 at 13:00 Apixaban (Eliquis) 5 mg BID PO Last administered on 08/30/18 08:16; Admin Dose 5 MG; Start 08/29/18 at 11:00 Atorvastatin Calcium (Lipitor) 40 mg HS PO Last administered on 08/29/18 21:16; Admin Dose 40 MG; Start 08/29/18 at 21:00 Ferric Sodium Gluconate Complex 125 mg/Sodium Chloride 110 ml @ 110 mls/hr DAILY@2300 IVPB ; Start 08/30/18 at 23:00; Stop 09/02/18 at 23:59 NERIS BROTHERS MD August 30, 2018 18:53
[2018-08-30 20:02] VITALS: BP 138/63; PULSE 66; RESP 18
[2018-08-30] MEDS: ATORVASTATIN 40 MG TAB PO SCH (20:45)
[2018-08-30] MEDS: INSULIN GLARGINE [LANTus] (100 UNITS/ML) SYG SC SCH (20:49)
[2018-08-30] MEDS: SOD FERRIC GLUC COMPLX 125 MG in SOD CHLORIDE 0.9% 100 ML IVPB SCH (22:31)
[2018-08-31 02:00] VITALS: BP 128/69; PULSE 62; RESP 18
[2018-08-31] MEDS: IPRATROPIUM (NEB) 0.5 MG/2.5 ML AMP HHN SCH ×4 (02:00→21:14)
[2018-08-31] MEDS: ACCU-CHEK XX SCH (02:00)
[2018-08-31] MEDS: LEVALBUTEROL (NEB) 1.25 MG/0.5 ML AMP HHN SCH ×4 (02:00→21:15)
[2018-08-31 07:00] VITALS: BP 150/72; PULSE 63; RESP 18
[2018-08-31] MEDS: INSULIN ASPART [NOVOLOG] 3 ML PEN SC SCH ×7 (07:35→21:10)
--- NOTE | 2018-08-31 08:11 | CONS ---
Assessment/Plan Assessment/Plan Assessment/Plan (Daily) 1. acute kidney injury vs possible baseline CKD II due to ishcemic ATN + Hemodynamics 2. 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 H/o HTN 4. H/o HL 5. H/o DM II 6. H/o CAD with previous stent placement 7. Anemia of chronic disease with iron deficiency s/p 5 days of IV iron Plan: BUN/Cr slightly better to 31/1.58, electrolytes stable on labs on 08/29/18 - On lasix 40mg po daily,continue - no labs today to review yet amlodipine 5 mg po daily, Eliquis 5mg pO BID will follow up Consultation Date/Type/Reason Admit Date/Time August 21, 2018 at 18:31 Initial Consult Date Type of Consult NEPHROLOGY Requesting Provider: NERIS BROTHERS MD Date/Time of Note DATE: 08/31/18 TIME: 08:11 Exam/Review of Systems Exam Vitals Vital Signs Date Temp Pulse Resp B/P (MAP) Pulse Ox O2 O2 Flow FiO2 Time Delivery Rate 08/31/18 2.0 02:00 08/31/18 97.8 62 18 128/69 97 Nasal 02:00 (88) Cannula 08/29/18 28 13:53 Intake and Output 08/30/18 08/30/18 08/31/18 1515:00 23:00 07:00 IntakeIntake Total 100 ml 1100 ml 410 ml OutputOutput Total 100 ml 1000 ml BalanceBalance 0 ml 100 ml 410 ml Results Result Diagram: 08/29/18 0637 08/29/18 0637 Results 24hrs Laboratory Tests Test 08/30/18 11:57 08/30/18 17:25 08/30/18 20:43 08/31/18 07:50 Bedside Glucose 117 113 140 109 Medications Medication Current Medications Ondansetron HCl (Zofran Inj) 4 mg Q6H PRN IV NAUSEA AND/OR VOMITING; Start 08/21/18 at 21:08 Albumin Human 250 ml @ 500 mls/hr PRN PRN IV CVP< 8, OR SBP<90; Start 08/21/18 at 21:08 Clopidogrel Bisulfate (plaVIX) 75 mg DAILY NGT Last administered on 08/30/18at 08:16; Admin Dose 75 MG; Start 08/21/18 at 21:08 Levalbuterol (Xopenex Neb) 1.25 mg Q6H RESP THERAPY HHN Last administered on 08/29/18at 07:59; Admin Dose 1.25 MG; Start 08/21/18 at 21:08 Ipratropium [place] (Atrovent 0.02% (Neb)) 0.5 mg Q6H RESP THERAPY HHN Last administered on 08/29/18at 07:59; Admin Dose 0.5 MG; Start 08/21/18 at 21:08 Diagnostic Test (Pha) (Accu-Chek) 1 ea 02 XX Last administered on 08/28/18at 02:30; Admin Dose 1 EA; Start 08/21/18 at 21:08 Miscellaneous Information 1 ea NOTE XX ; Start 08/21/18 at 21:08 Glucose (Glutose) 15 gm Q15M PRN PO DECREASED GLUCOSE; Start 08/21/18 at 21:08 Glucose (Glutose) 22.5 gm Q15M PRN PO DECREASED GLUCOSE; Start 08/21/18 at 21:08 Dextrose (D50w Syringe) 25 ml Q15M PRN IV DECREASED GLUCOSE; Start 08/21/18 at 21:08 Dextrose (D50w Syringe) 50 ml Q15M PRN IV DECREASED GLUCOSE; Start 08/21/18 at 21:08 Glucagon (Glucagen) 1 mg Q15M PRN IM DECREASED GLUCOSE; Start 08/21/18 at 21:08 Glucose (Glutose) 15 gm Q15M PRN BUCCAL DECREASED GLUCOSE; Start 08/21/18 at 21:08 Furosemide (Lasix) 40 mg DAILY PO Last administered on 08/30/18at 08:17; Admin Dose 40 MG; Start 08/21/18 at 21:08 Famotidine (Pepcid) 20 mg DAILY PO Last administered on 08/30/18at 08:16; Admin Dose 20 MG; Start 08/21/18 at 21:08 Insulin Aspart (Novolog Insulin Pen) 10 unit WITH MEALS SC Last administered on 08/31/18at 08:00; Admin Dose 10 UNIT; Start 08/21/18 at 21:08 Insulin Aspart (Novolog Insulin Pen) NOVOLOG *MODERATE* ALGORITHM WITH MEALS BEDTIME SC Last administered on 08/29/18at 17:09; Admin Dose 2 UNIT; Start 08/21/18 at 21:08 Oxycodone/ Acetaminophen (Endocet (10/ 325)) 1 tab Q4H PRN PO MODERATE PAIN LEVEL 4-6 Last administered on 08/30/18 08:16; Admin Dose 1 TAB; Start 08/21/18 at 21:08 Hydralazine HCl (Apresoline) 10 mg Q4H PRN IV SBP >150; Start 08/21/18 at 21:30 Acetaminophen (Tylenol Tab) 650 mg Q3H PRN PO ELEVATED TEMPERATURE Last administered on 08/26/18 15:46; Admin Dose 650 MG; Start 08/21/18 at 22:00 Ascorbic Acid (Vitamin C) 500 mg TID NGT Last administered on 08/30/18 20:45; Admin Dose 500 MG; Start 08/21/18 at 21:49 Carvedilol (Coreg) 12.5 mg BID PO Last administered on 08/30/18 20:45; Admin Dose 12.5 MG; Start 08/21/18 at 21:51 Docusate Sodium (Colace) 250 mg BID PO Last administered on 08/30/18 20:45; Admin Dose 250 MG; Start 08/21/18 at 21:51 Amlodipine Besylate (Norvasc) 5 mg DAILY PO Last administered on 08/30/18 08:17; Admin Dose 5 MG; Start 08/22/18 at 09:00 Magnesium Hydroxide (Milk Of Mag) 30 ml BID PRN PO CONSTIPATION Last administered on 08/22/18 17:19; Admin Dose 30 ML; Start 08/22/18 at 11:00 Lactulose (Enulose) 20 gm DAILY PRN PO CONSTIPATION Last administered on 08/22/18 12:44; Admin Dose 20 GM; Start 08/22/18 at 11:00 Bisacodyl (Dulcolax Supp) 10 mg DAILY PRN [place] CONSTIPATION; Start 08/22/18 at 11:00 Morphine Sulfate (morphine) 1 mg Q6H PRN IV SEVERE PAIN LEVEL 7-10; Start 08/23/18 at 07:00 Nitroglycerin (Nitroglycerin (Sl Tab) 0.4 Mg) 1 tab Q5M PRN SL ANGINA; Start 08/24/18 at 11:30 Gabapentin (Neurontin) 100 mg TID PO Last administered on 08/30/18 20:46; Admin Dose 100 MG; Start 08/25/18 at 13:00 Polyethylene Glycol (Miralax) 17 gm TID PRN PO CONSTIPATION; Start 08/25/18 at 12:00 Insulin Glargine (Lantus) 28 units 2100 SC Last administered on 08/30/18 20:4 9; Admin Dose 28 UNITS; Start 08/26/18 at 21:00 Hydromorphone HCl (Dilaudid) 1 mg Q3 PRN IV SEVERE PAIN LEVEL 7-10 Last administered on 08/28/18 17:37; Admin Dose 1 MG; Start 08/27/18 at 13:00 Apixaban (Eliquis) 5 mg BID PO Last administered on 08/30/18 20:45; Admin Dose 5 MG; Start 08/29/18 at 11:00 Atorvastatin Calcium (Lipitor) 40 mg HS PO Last administered on 08/30/18 20:45; Admin Dose 40 MG; Start 08/29/18 at 21:00 Ferric Sodium Gluconate Complex 125 mg/Sodium Chloride 110 ml @ 110 mls/hr DAILY@2300 IVPB Last administered on 08/30/18 22:31; Admin Dose 110 MLS/HR; Start 08/30/18 at 23:00; Stop 09/02/18 at 23:59 DARRYL SOOD MD August 31, 2018 08:11
[2018-08-31] MEDS: DOCUSATE SODIUM 250 MG CAP PO SCH ×2 (08:37→21:09)
[2018-08-31] MEDS: ASCORBIC ACID 500 MG TAB NGT SCH ×3 (08:37→21:08)
[2018-08-31] MEDS: CLOPIDOGREL 75 MG TAB NGT SCH (08:37)
[2018-08-31] MEDS: GABAPENTIN 100 MG CAP PO SCH ×3 (08:37→21:08)
[2018-08-31] MEDS: APIXABAN 5 MG TABLET PO SCH ×2 (08:37→21:08)
[2018-08-31] MEDS: FAMOTIDINE 20 MG TAB PO SCH (08:37)
[2018-08-31] MEDS: AMLODIPINE 5 MG TAB PO SCH (08:38)
[2018-08-31] MEDS: FUROSEMIDE 40 MG TAB PO SCH (08:38)
--- NOTE | 2018-08-31 11:39 | PN ---
Date/Time of Note Date/Time of Note DATE: 08/31/18 TIME: 11:36 Assessment/Plan VTE Prophylaxis Risk score (from Ns)>0 risk: 7 SCD applied (from [facility] [place]): No SCD contraindicated: other Pharmacological prophylaxis: apixaban Lines/Catheters IV [facility]ter Type [facility]from [facility] [place] [employer] line still needed: No Urinary Cath still in place: No Reason Cath still needed: urinary retention Assessment/Plan Assessment/Plan 1. Ischemic heart disease angina three-vessel coronary a. disease.s/p CABG x5 08/13/18: WINN to LAD, SVG to ramus sequence to obtuse marginal artery, SVG to PDA, SVG to left ventricular extension branch. Difficult case per Dr. Howell with poor targets.Vein harvesting and epiaortic scanning of the ascending aorta.CAD: s/p multiple prior PCIs. Cath 08/11/18 with multivessel disease. Now with elevated level of the troponin the second 1 is 1.1. We will get q. 6 hours x 2. The patient denies having the chest pain. 2. Hypertension with congestive heart failure diastolic- improved. 3. Diabetes mellitus type 2 blood sugar better controlled. Continue titration. 4. History of cholecystitis and pancreatitis 5. Acute on chronic kidney disease with baseline creatinine being 1.6 up to 3.5 came down to 2.05 yesterday and 1.95 today. Improved after hydration,now mildly dehydrated; 6. Dyslipidemia better controlled 7. History of nasal bleeding recurrent- stable. 8. Morbid obesity with snoring and apnea and daytime sleepiness 9. BPH with nocturia 10. Low back pain with radiculopathy 11. 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 Status post cataract ectomy 13. Diabetic nephropathy retinopathy and angiopathy and neuropathy. 14. Constipation- improved. 15. Grief reaction after the of her 16. Gastroesophageal reflux disease 17. Deep venous thrombosis of the left saphenous vein, 2-3 months ago;was on Eliquis 5 mg twice daily, stopped: since 08/11/2018. 18. Gastritis 19. COPD. Quit smoking 10years ago. 02sat now 95% with persistent cough. 20. History of nephrolithiasis. 21. Drop of hematocrit; s/p 2 units of prbc tx. 22. Drop of albumone and total protein and mild elevation of lft's. 21. Drop of hematocrit; s/p 2 units of prbc tx. further decline today; hematocrit being the 25 recheck tomorrow. 22. Drop of albumone and total protein and mild elevation of lft's. 23.Myopathy 24.Lethargy 25.Acute on chronic kidney disease, improving 26. Pancreatitis with pain. 27.Unstable gateon. Result Diagram: 08/29/1837 08/29/1837 Results 24hrs Laboratory Tests Test 08/30/18 11:57 08/30/18 17:25 08/30/18 20:43 08/31/18 07:50 Bedside Glucose 117 113 140 109 Subjective 24 Hr Interval Summary Free Text/Dictation Anorexia. I am anxious. Epigastric pain with nausea no vomiting. No fever or chills no melena. Constitutional: improved, poor po, requiring O2; No no complaints, No chills, No diaphoresis, No disoriented, No febrile, No requiring IVF, No other Eyes: No no complaints, No pain, No discharge, No redness, No visual change, No other ENT: No no complaints, No bleeding, No pain, No congestion, No discharge, No dysphagia, No sore throat, No other Respiratory: cough, shortness of breath; No no complaints, No pain, No pleuritic pain, No sputum, No wheezing, No other Cardiovascular: edema, lightheadedness, orthopenea, paroxysmal nocturnal dyspnea; No no complaints, No chest pain, No palpitations, No other Gastrointestinal: decreased appetite, nausea, passing stool; No no complaints, No pain, No blood, No constipation, No diarrhea, No flatus, No vomiting, No other Genitourinary: dysuria; No no complaints, No bleeding, No discharge, No flank pain, No hematuria, No other Musculoskeletal: back pain, bone/joint pain, neck pain; No no complaints, No restricted range of motion, No swelling, No other Skin: No no complaints, No bruising, No erythema, No laceration, No pruritis, No rash, No skin lesions, No other Neurologic: dizziness (Getting up suddenly.); No no complaints, No confusion, No focal-weakness, No headache, No syncope, No seizure, No other Psychological: anxiety; No no complaints, No nl mood/affect, No confusion, No depression, No suicidal, No other Exam/Review of Systems Exam Vitals Vital Signs Date Temp Pulse Resp B/P (MAP) Pulse Ox O2 O2 Flow FiO2 Time Delivery Rate 08/31/18 Nasal 2.0 08:30 Cannula 08/31/18 98.6 63 18 150/72 96 07:00 (98) 08/29/18 28 13:53 Intake and Output 08/30/18 08/30/18 08/31/18 1515:00 23:00 07:00 IntakeIntake Total 100 ml 1100 ml 410 ml OutputOutput Total 100 ml 1000 ml BalanceBalance 0 ml 100 ml 410 ml Constitutional: alert, oriented, well developed, distress, frail, obese; No non-verbal, No other Psych: anxiety, depression; No no complaints, No nl mood/affect, No confusion, No suicidal, No other Head: normocephalic, atraumatic; No lacerations, No hematomas, No other Eyes: EOMI, nl lids, PERRL, icteric; No nl conjunctiva, No nl sclera, No fundi, disc, No other ENMT: No nl external ears & nose, No nl lips & teeth, No nl nasal mucosa & septum, No mucosa pink and moist, No intubated, No tympanic membranes, No other Neck: jvd, thyromegaly, nuchal rigidity; No supple, No non-tender, No bruits, No masses, No other Respiratory: normal air movement, congested cough (Pale conjunctiva), diminished breath sounds; No clear to auscultation, No crackles/rales, No intercostal retraction, No labored breathing, No respirations, No tactile fremitus, No wheezing, No other Cardiovascular: regular rate and rhythm, bruits, edema (Trace.), systolic murmur; No nl pulses, No diastolic murmur, No gallop, No irregular rhythm, No jugular venous distention (JVD), No murmurs/extra sounds, No rub, No S3, No S4, No other Gastrointestinal: soft, nl liver, spleen, non-tender (Tender epigastric region on the right upper quadrant without rebound.), bowel sounds, distended; No ascites, No firm, No hepatomegaly, No mass, No rebound or guarding, No splenomegaly, No surgical scars, No tender, No other Genitourinary - Male: nl penis, nl scrotum; No CVA tenderness, No discharge, No other Musculoskeletal: joint tenderness; No nl extremities to inspection, No nl gait and stance, No muscle tone, No muscle weakness, No range of motion, No spine non-tender, No swelling, No other 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: 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 II-XII intact; No nl mental status, No nl speech, No nl strength, No confused, No DTR's symmetric, No focal weakness, No lethargic, No numbness, No reflexes, No unresponsive, No other Results Results 24hrs Laboratory Tests Test 08/30/18 11:57 08/30/18 17:25 08/30/18 20:43 08/31/18 07:50 Bedside Glucose 117 113 140 109 Medications Medication Current Medications Ondansetron HCl (Zofran Inj) 4 mg Q6H PRN IV NAUSEA AND/OR VOMITING; Start 08/21/18 at 21:08 Albumin Human 250 ml @ 500 mls/hr PRN PRN IV CVP< 8, OR SBP<90; Start 08/21/18 at 21:08 Clopidogrel Bisulfate (plaVIX) 75 mg DAILY NGT Last administered on 08/31/18at 08:37; Admin Dose 75 MG; Start 08/21/18 at 21:08 Levalbuterol (Xopenex Neb) 1.25 mg Q6H RESP THERAPY HHN Last administered on 08/29/18at 07:59; Admin Dose 1.25 MG; Start 08/21/18 at 21:08 Ipratropium [place] (Atrovent 0.02% (Neb)) 0.5 mg Q6H RESP THERAPY HHN Last administered on 08/29/18at 07:59; Admin Dose 0.5 MG; Start 08/21/18 at 21:08 Diagnostic Test (Pha) (Accu-Chek) 1 ea 02 XX Last administered on 08/28/18at 02:30; Admin Dose 1 EA; Start 08/21/18 at 21:08 Miscellaneous Information 1 ea NOTE XX ; Start 08/21/18 at 21:08 Glucose (Glutose) 15 gm Q15M PRN PO DECREASED GLUCOSE; Start 08/21/18 at 21:08 Glucose (Glutose) 22.5 gm Q15M PRN PO DECREASED GLUCOSE; Start 08/21/18 at 21:08 Dextrose (D50w Syringe) 25 ml Q15M PRN IV DECREASED GLUCOSE; Start 08/21/18 at 21:08 Dextrose (D50w Syringe) 50 ml Q15M PRN IV DECREASED GLUCOSE; Start 08/21/18 at 21:08 Glucagon (Glucagen) 1 mg Q15M PRN IM DECREASED GLUCOSE; Start 08/21/18 at 21:08 Glucose (Glutose) 15 gm Q15M PRN BUCCAL DECREASED GLUCOSE; Start 08/21/18 at 21:08 Furosemide (Lasix) 40 mg DAILY PO Last administered on 08/31/18 08:38; Admin Dose 40 MG; Start 08/21/18 at 21:08 Famotidine (Pepcid) 20 mg DAILY PO Last administered on 08/31/18 08:37; Admin Dose 20 MG; Start 08/21/18 at 21:08 Insulin Aspart (Novolog Insulin Pen) 10 unit WITH MEALS SC Last administered on 08/31/18 08:00; Admin Dose 10 UNIT; Start 08/21/18 at 21:08 Insulin Aspart (Novolog Insulin Pen) NOVOLOG *MODERATE* ALGORITHM WITH MEALS BEDTIME SC Last administered on 08/29/18 17:09; Admin Dose 2 UNIT; Start 08/21/18 at 21:08 Oxycodone/ Acetaminophen (Endocet (10/ 325)) 1 tab Q4H PRN PO MODERATE PAIN LEVEL 4-6 Last administered on 08/30/18 08:16; Admin Dose 1 TAB; Start 08/21/18 at 21:08 Hydralazine HCl (Apresoline) 10 mg Q4H PRN IV SBP >150; Start 08/21/18 at 21:30 Acetaminophen (Tylenol Tab) 650 mg Q3H PRN PO ELEVATED TEMPERATURE Last administered on 08/26/18 15:46; Admin Dose 650 MG; Start 08/21/18 at 22:00 Ascorbic Acid (Vitamin C) 500 mg TID NGT Last administered on 08/31/18 08:37; Admin Dose 500 MG; Start 08/21/18 at 21:49 Carvedilol (Coreg) 12.5 mg BID PO Last administered on 08/31/18 08:38; Admin Dose 12.5 MG; Start 08/21/18 at 21:51 Docusate Sodium (Colace) 250 mg BID PO Last administered on 08/31/18 08:37; Admin Dose 250 MG; Start 08/21/18 at 21:51 Amlodipine Besylate (Norvasc) 5 mg DAILY PO Last administered on 08/31/18 08:38; Admin Dose 5 MG; Start 08/22/18 at 09:00 Magnesium Hydroxide (Milk Of Mag) 30 ml BID PRN PO CONSTIPATION Last administered on 08/22/18 17:19; Admin Dose 30 ML; Start 08/22/18 at 11:00 Lactulose (Enulose) 20 gm DAILY PRN PO CONSTIPATION Last administered on 08/22/18 at 12:44; Admin Dose 20 GM; Start 08/22/18 at 11:00 Bisacodyl (Dulcolax Supp) 10 mg DAILY PRN [place] CONSTIPATION; Start 08/22/18 at 11:00 Morphine Sulfate (morphine) 1 mg Q6H PRN IV SEVERE PAIN LEVEL 7-10; Start 08/23/18 at 07:00 Nitroglycerin (Nitroglycerin (Sl Tab) 0.4 Mg) 1 tab Q5M PRN SL ANGINA; Start 08/24/18 at 11:30 Gabapentin (Neurontin) 100 mg TID PO Last administered on 08/31/18 08:37; Adm in Dose 100 MG; Start 08/25/18 at 13:00 Polyethylene Glycol (Miralax) 17 gm TID PRN PO CONSTIPATION; Start 08/25/18 at 12:00 Insulin Glargine (Lantus) 28 units 2100 SC Last administered on 08/30/18at 2 0:49; Admin Dose 28 UNITS; Start 08/26/18 at 21:00 Hydromorphone HCl (Dilaudid) 1 mg Q3 PRN IV SEVERE PAIN LEVEL 7-10 Last administered on 08/28/18 17:37; Admin Dose 1 MG; Start 08/27/18 at 13:00 Apixaban (Eliquis) 5 mg BID PO Last administered on 08/31/18 08:37; Admin Dose 5 MG; Start 08/29/18 at 11:00 Atorvastatin Calcium (Lipitor) 40 mg HS PO Last administered on 08/30/18at 20:45; Admin Dose 40 MG; Start 08/29/18 at 21:00 Ferric Sodium Gluconate Complex 125 mg/Sodium Chloride 110 ml @ 110 mls/hr DAILY@2300 IVPB Last administered on 08/30/18at 22:31; Admin Dose 110 MLS/HR; Start 08/30/18 at 23:00; Stop 09/02/18 at 23:59 NERIS BROTHERS MD August 31, 2018 11:39
[2018-08-31] MEDS ORDERED: SOD FERRIC GLUC COMPLX 125 MG in SOD CHLORIDE 0.9% 100 ML IVPB SCH (13:00)
[2018-08-31 14:00] VITALS: BP 114/60; PULSE 57; RESP 18
[2018-08-31] MEDS: OXYCODONE/ACETAMINOPHEN (10/325) TAB PO PRN (14:29)
[2018-08-31 20:00] VITALS: BP 134/65; PULSE 58; RESP 18
--- NOTE | 2018-08-31 21:07 | CONS ---
Assessment/Plan Assessment/Plan Assessment/Plan (Daily) Consultation Assessment/Plan Assessment/Plan Assessment/Plan (Daily) Consultation Assessment/Plan Assessment/Plan Hospital Course (Demo Recall) 73 yo male with h/o severe coronary artery disease, s/p multi vessel CABG, is referred to GI to evaluate for abnormal LFTs Interval hx: Amylase, lipase wnl. LFT trending down. 1. Pancreatitis, likely biliary given the abnormal LFTs which is coming down it is possible patient is passing small sand particle of stones -lipid panel -US of liver pending -NPO -IVF for hydration 2. Transaminitis -elevated alk, alt, ast -monitor qd -US of liver -lipase and amylase -limit hepatatoxic medications 3. Severe coronary artery disease, S/P multi vessel CABG recently - pr cardiology team 4. Diabetes mellitus -per primary team 5. Renal failure -per nephrology team 6. Iron deficiency anemia -monitor HH and for acute GI bleeding, pt is on eliquis and plavix 7. Obesity 8. HTN 9. DM2 10. Fatty liver 11. Hepatosplenomegaly US of liver: 1. Sludge is noted within the gallbladder. There is no gallbladder wall thickening or pericholecystic fluid to suggest acute cholecystitis. 2. No biliary duct dilatation. 3. Fatty change of the liver. 4. Hepatosplenomegaly. 5. Slightly increased bilateral renal cortical echogenicity suggest medical renal disease. 6. Questionable 1.4 cm echogenic cortical lesion in the right kidney without corresponding abnormality seen on the previous CT scan. This is likely artifactual Plan: Consider PO iron supplementation for low Iron and TIBC Monitor LFTs, lipase and amylase. Amylase lipase is within normal limit Clear liquid diet, advance as tolerated Monitor HH and for GI bleeding patient's abnormal LFT may be due to fatty liver We will get MRCP done to rule out pancreatic divisum or bile duct stone Consultation Date/Type/Reason Admit Date/Time August 21, 2018 at 18:31 Initial Consult Date Requesting Provider: NERIS BROTHERS MD Date/Time of Note DATE: 08/31/18 TIME: 21:05 24 HR Interval Summary Constitutional: improved Exam/Review of Systems Exam Vitals Vital Signs Date Temp Pulse Resp B/P (MAP) Pulse Ox O2 O2 Flow FiO2 Time Delivery Rate 08/31/18 97.7 57 18 114/60 97 Room Air 14:00 (78) 08/31/18 2.0 12:52 08/29/18 28 13:53 Intake and Output 08/30/18 08/30/18 08/31/18 1515:00 23:00 07:00 IntakeIntake Total 100 ml 1100 ml 410 ml OutputOutput Total 100 ml 1000 ml BalanceBalance 0 ml 100 ml 410 ml Constitutional: alert, oriented, well developed Psych: no complaints, nl mood/affect Head: normocephalic, atraumatic Eyes: nl conjunctiva, EOMI, nl lids, nl sclera, PERRL ENMT: nl external ears & nose, nl lips & teeth, nl nasal mucosa & septum Neck: supple, non-tender Respiratory: clear to auscultation, normal air movement Cardiovascular: regular rate and rhythm, nl pulses Gastrointestinal: soft, nl liver, spleen, non-tender Musculoskeletal: nl extremities to inspection, nl gait and stance Extremities: normal pulses 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: SHIFT ENGINEER II-XII intact, nl mental status, nl speech, nl strength Skin: nl turgor; No rash or lesions Lymph: nl lymph nodes Results Result Diagram: 08/29/1863608/29/18636 Results 24hrs Laboratory Tests Test 08/31/18 07:50 08/31/18 14:31 08/31/18 17:43 08/31/18 20:39 Bedside Glucose 109 141 242 H 198 Medications Medication Current Medications Ondansetron HCl (Zofran Inj) 4 mg Q6H PRN IV NAUSEA AND/OR VOMITING; Start 08/21/18 at 21:08 Albumin Human 250 ml @ 500 mls/hr PRN PRN IV CVP< 8, OR SBP<90; Start 08/21/18 at 21:08 Clopidogrel Bisulfate (plaVIX) 75 mg DAILY NGT Last administered on 08/31/18at 08:37; Admin Dose 75 MG; Start 08/21/18 at 21:08 Levalbuterol (Xopenex Neb) 1.25 mg Q6H RESP THERAPY HHN Last administered on 08/29/18at 07:59; Admin Dose 1.25 MG; Start 08/21/18 at 21:08 Ipratropium [place] (Atrovent 0.02% (Neb)) 0.5 mg Q6H RESP THERAPY HHN Last administered on 08/29/18 07:59; Admin Dose 0.5 MG; Start 08/21/18 at 21:08 Diagnostic Test (Pha) (Accu-Chek) 1 ea 02 XX Last administered on 08/28/18at 02:30; Admin Dose 1 EA; Start 08/21/18 at 21:08 Miscellaneous Information 1 ea NOTE XX ; Start 08/21/18 at 21:08 Glucose (Glutose) 15 gm Q15M PRN PO DECREASED GLUCOSE; Start 08/21/18 at 21:08 Glucose (Glutose) 22.5 gm Q15M PRN PO DECREASED GLUCOSE; Start 08/21/18 at 21:08 Dextrose (D50w Syringe) 25 ml Q15M PRN IV DECREASED GLUCOSE; Start 08/21/18 at 21:08 Dextrose (D50w Syringe) 50 ml Q15M PRN IV DECREASED GLUCOSE; Start 08/21/18 at 21:08 Glucagon (Glucagen) 1 mg Q15M PRN IM DECREASED GLUCOSE; Start 08/21/18 at 21:08 Glucose (Glutose) 15 gm Q15M PRN BUCCAL DECREASED GLUCOSE; Start 08/21/18 at 21:08 Furosemide (Lasix) 40 mg DAILY PO Last administered on 08/31/18at 08:38; Admin Dose 40 MG; Start 08/21/18 at 21:08 Famotidine (Pepcid) 20 mg DAILY PO Last administered on 08/31/18 08:37; Admin Dose 20 MG; Start 08/21/18 at 21:08 Insulin Aspart (Novolog Insulin Pen) 10 unit WITH MEALS SC Last administered on 08/31/18 17:46; Admin Dose 10 UNIT; Start 08/21/18 at 21:08 Insulin Aspart (Novolog Insulin Pen) NOVOLOG *MODERATE* ALGORITHM WITH MEALS BEDTIME SC Last administered on 08/31/18 17:47; Admin Dose 6 UNIT; Start 08/21/18 at 21:08 Oxycodone/ Acetaminophen (Endocet (10/ 325)) 1 tab Q4H PRN PO MODERATE PAIN LEVEL 4-6 Last administered on 08/31/18 14:29; Admin Dose 1 TAB; Start 08/21/18 at 21:08 Hydralazine HCl (Apresoline) 10 mg Q4H PRN IV SBP >150; Start 08/21/18 at 21:30 Acetaminophen (Tylenol Tab) 650 mg Q3H PRN PO ELEVATED TEMPERATURE Last administered on 08/26/18 15:46; Admin Dose 650 MG; Start 08/21/18 at 22:00 Ascorbic Acid (Vitamin C) 500 mg TID NGT Last administered on 08/31/18 08:37; Admin Dose 500 MG; Start 08/21/18 at 21:49 Carvedilol (Coreg) 12.5 mg BID PO Last administered on 08/31/18 08:38; Admin Dose 12.5 MG; Start 08/21/18 at 21:51 Docusate Sodium (Colace) 250 mg BID PO Last administered on 08/31/18 08:37; Ad min Dose 250 MG; Start 08/21/18 at 21:51 Amlodipine Besylate (Norvasc) 5 mg DAILY PO Last administered on 08/31/18 08:38; Admin Dose 5 MG; Start 08/22/18 at 09:00 Magnesium Hydroxide (Milk Of Mag) 30 ml BID PRN PO CONSTIPATION Last administered on 08/22/18 17:19; Admin Dose 30 ML; Start 08/22/18 at 11:00 Lactulose (Enulose) 20 gm DAILY PRN PO CONSTIPATION Last administered on 08/22/18 12:44; Admin Dose 20 GM; Start 08/22/18 at 11:00 Bisacodyl (Dulcolax Supp) 10 mg DAILY PRN [place] CONSTIPATION; Start 08/22/18 at 11:00 Morphine Sulfate (morphine) 1 mg Q6H PRN IV SEVERE PAIN LEVEL 7-10; Start at 07:00 Nitroglycerin (Nitroglycerin (Sl Tab) 0.4 Mg) 1 tab Q5M PRN SL ANGINA; Start 08/24/18 at 11:30 Gabapentin (Neurontin) 100 mg TID PO Last administered on 08/31/18 08:37; Admin Dose 100 MG; Start 08/25/18 at 13:00 Polyethylene Glycol (Miralax) 17 gm TID PRN PO CONSTIPATION; Start 08/25/18 at 12:00 Insulin Glargine (Lantus) 28 units 2100 SC Last administered on 08/30/18 20:49; Admin Dose 28 UNITS; Start 08/26/18 at 21:00 Hydromorphone HCl (Dilaudid) 1 mg Q3 PRN IV SEVERE PAIN LEVEL 7-10 Last administered on 08/28/18at 17:37; Admin Dose 1 MG; Start 08/27/18 at 13:00 Apixaban (Eliquis) 5 mg BID PO Last administered on 08/31/18at 08:37; Admin Dose 5 MG; Start 08/29/18 at 11:00 Atorvastatin Calcium (Lipitor) 40 mg HS PO Last administered on 08/30/18at 20:45; Admin Dose 40 MG; Start 08/29/18 at 21:00 Ferric Sodium Gluconate Complex 125 mg/Sodium Chloride 110 ml @ 110 mls/hr DAILY@2300 IVPB Last administered on 08/30/18at 22:31; Admin Dose 110 MLS/HR; Start 08/30/18 at 23:00; Stop 09/02/18 at 23:59 Ferric Sodium Gluconate Complex 125 mg/Sodium Chloride 100 ml @ 100 mls/hr DAILY@1300 IVPB ; Start 08/31/18 at 13:00; Stop 09/02/18 at 13:59 BREN PRABHAKAR MD August 31, 2018 21:07
[2018-08-31] MEDS: ATORVASTATIN 40 MG TAB PO SCH (21:09)
[2018-08-31] MEDS: INSULIN GLARGINE [LANTus] (100 UNITS/ML) SYG SC SCH (21:10)
[2018-08-31] MEDS: SOD FERRIC GLUC COMPLX 125 MG in SOD CHLORIDE 0.9% 100 ML IVPB SCH (23:45)
[2018-09-01 02:00] VITALS: BP 129/63; PULSE 56; RESP 18
[2018-09-01] MEDS: ACCU-CHEK XX SCH (02:15)
[2018-09-01] MEDS: LEVALBUTEROL (NEB) 1.25 MG/0.5 ML AMP HHN SCH ×4 (02:28→21:52)
[2018-09-01] MEDS: IPRATROPIUM (NEB) 0.5 MG/2.5 ML AMP HHN SCH ×4 (02:28→21:52)
[2018-09-01] MEDS: INSULIN ASPART [NOVOLOG] 3 ML PEN SC SCH ×7 (07:35→20:45)
[2018-09-01 07:50] VITALS: BP 118/64; PULSE 61; RESP 18
--- NOTE | 2018-09-01 08:51 | PN ---
Date/Time of Note Date/Time of Note DATE: 09/01/18 TIME: 08:46 Assessment/Plan VTE Prophylaxis Risk score (from Ns)>0 risk: 8 SCD applied (from Ns): No SCD contraindicated: other (on.) Pharmacological prophylaxis: apixaban Lines/Catheters IV Catheter Type (from Rust): [place] [employer] Central line still needed: No Urinary Cath still in place: No Reason Cath still needed: urinary retention Assessment/Plan Assessment/Plan 1. Ischemic heart disease angina three-vessel coronary a. disease.s/p CABG x5 08/13/18: WINN to LAD, SVG to ramus sequence to obtuse marginal artery, SVG to PDA, SVG to left ventricular extension branch. Difficult case per Dr. Howell with poor targets.Vein harvesting and epiaortic scanning of the ascending aorta.CAD: s/p multiple prior PCIs. Cath 08/11/18 with multivessel disease. Now with elevated level of the troponin the second 1 is 1.1. We will get q. 6 hours x 2. The patient denies having the chest pain. 2. Hypertension with congestive heart failure diastolic- improved. 3. Diabetes mellitus type 2 blood sugar better controlled. Continue titration. 4. History of cholecystitis and pancreatitis. Elevation of liver function tests almost 10 to the normal continue follow-up will discuss Dr. Bill. 5. Acute on chronic kidney disease with baseline creatinine being 1.6 up to 3.5 came down to 2.05 yesterday and 1.95 today. Improved after hydration,now mildly dehydrated; 6. Dyslipidemia better controlled 7. History of nasal bleeding recurrent- stable. 8. Morbid obesity with snoring and apnea and daytime sleepiness 9. BPH with nocturia 10. Low back pain with radiculopathy 11. 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 Status post cataract ectomy 13. Diabetic nephropathy retinopathy and angiopathy and neuropathy. 14. Constipation- improved. 15. Grief reaction after the of her 16. Gastroesophageal reflux disease 17. Deep venous thrombosis of the left saphenous vein, 2-3 months ago;was on Eliquis 5 mg twice daily, stopped: since 08/11/2018. 18. Gastritis 19. COPD. Quit smoking 10years ago. 02sat now 95% with persistent cough. 20. History of nephrolithiasis. 21. Drop of hematocrit; s/p 2 units of prbc tx. today level is 25. 22. Drop of albumone and total protein and mild elevation of lft's. 21. Drop of hematocrit; s/p 2 units of prbc tx. further decline today; hematocrit being the 25 recheck tomorrow. 22. Drop of albumone and total protein and mild elevation of lft's. 23.Myopathy 24.insomnia 25.Acute on chronic kidney disease, improving 26. Pancreatitis with pain. 27.Unstable gate. Result Diagram: 09/01/18 0635 09/01/18 0635 Results 24hrs Laboratory Tests Test 08/31/18 14:31 08/31/18 17:43 08/31/18 20:39 09/01/18 02:24 Bedside Glucose 141 242 H 198 126 Test 09/01/18 06:35 09/01/18 07:57 White Blood Count 3.9 #L Red Blood Count 2.82 L Hemoglobin 8.2 L Hematocrit 25.8 L Mean Corpuscular 91.5 Volume Mean Corpuscular 29.1 Hemoglobin Mean Corpuscular 31.8 L Hemoglobin Concent Red Cell 14.6 H Distribution Width Platelet Count 197 Mean Platelet Volume 11.3 H Immature 0.500 H Granulocytes % Neutrophils % 62.4 Lymphocytes % 19.2 Monocytes % 12.8 H Eosinophils % 4.6 Basophils % 0.5 Nucleated Red Blood 0.0 Cells % Immature 0.020 Granulocytes # Neutrophils # 2.4 Lymphocytes # 0.8 Monocytes # 0.5 Eosinophils # 0.2 Basophils # 0.0 Nucleated Red Blood 0.0 Cells # Sodium Level 136 Potassium Level 3.9 Chloride Level 99 Carbon Dioxide Level 29 Anion Gap 8 Blood Urea Nitrogen 29 H Creatinine 1.66 H Est Glomerular Filtrat Rate mL/min Glucose Level 103 Calcium Level 8.6 Total Bilirubin 1.0 Direct Bilirubin 0.00 Indirect Bilirubin 1.0 Aspartate Amino 331 H Transf (AST/SGOT) Alanine 242 H Aminotransferase (AL T/SGPT) Alkaline Phosphatase 398 H Total Protein 6.1 Albumin 3.2 L Globulin 2.90 Albumin/Globulin 1.10 Ratio Bedside Glucose 129 Subjective 24 Hr Interval Summary Free Text/Dictation I feel better. No nausea vomiting. No epigastric pain. Positive for sensation of fullness of the stomach. Dissatisfied after multiple attempts to start IV line. Positive for BM. Discussed with the patient elevation of liver function tests. Plan to change IV iron to p.o. despite of having constipation. If he tolerates well we will continue if not then shifted to daily again. Constitutional: poor po, requiring O2; No no complaints, No improved, No chills, No diaphoresis, No disoriented, No febrile, No requiring IVF, No other Eyes: No no complaints, No pain, No discharge, No redness, No visual change, No other ENT: congestion; No no complaints, No bleeding, No pain, No discharge, No dysphagia, No sore throat, No other Respiratory: cough, pleuritic pain, shortness of breath; No no complaints, No pain, No sputum, No wheezing, No other Cardiovascular: edema, orthopenea (Trace of both ankle regions); No no complaints, No chest pain, No lightheadedness, No palpitations, No paroxysmal nocturnal dyspnea, No other Gastrointestinal: constipation, decreased appetite, flatus, nausea; No no complaints, No pain, No blood, No diarrhea, No passing stool, No vomiting, No other Genitourinary: dysuria; No no complaints, No bleeding, No discharge, No flank pain, No hematuria, No other Musculoskeletal: back pain, bone/joint pain; No no complaints, No neck pain, No restricted range of motion, No swelling, No other Skin: No no complaints, No bruising, No erythema, No laceration, No pruritis, No rash, No skin lesions, No other Neurologic: No no complaints, No confusion, No dizziness, No focal-weakness, No headache, No syncope, No seizure, No other Endocrine: No no complaints, No polyuria, No polydypsia, No dry skin, No temp intolerance, No other Lymphatic: No no complaints, No adenopathy, No tender nodes, No lymphadema, No other Psychological: anxiety; No no complaints, No nl mood/affect, No confusion, No depression, No suicidal, No other Exam/Review of Systems Exam Vitals Vital Signs Date Temp Pulse Resp B/P (MAP) Pulse Ox O2 O2 Flow FiO2 Time Delivery Rate 09/01/18 98.3 61 18 118/64 97 Room Air 07:50 (82) 09/01/18 2.0 02:28 08/29/18 28 13:53 Intake and Output 508/31/18 09/01/18 1515:00 23:00 07:00 IntakeIntake Total 800 ml 240 ml OutputOutput Total 600 ml 500 ml BalanceBalance 800 ml -600 ml -260 ml Constitutional: alert, oriented, well developed, distress, frail, obese; No non-verbal, No other Psych: anxiety, depression; No no complaints, No nl mood/affect, No confusion, No suicidal, No other Head: normocephalic, atraumatic; No lacerations, No hematomas, No other Eyes: nl conjunctiva, EOMI, nl lids, nl sclera, PERRL (No jaundice); No icteric, No fundi, disc, No other ENMT: nl external ears & nose; No nl lips & teeth, No nl nasal mucosa & septum, No mucosa pink and moist, No intubated, No tympanic membranes, No other Neck: jvd, bruits, thyromegaly, nuchal rigidity; No supple, No non-tender, No masses, No other Respiratory: congested cough, crackles/rales, diminished breath sounds, intercostal retraction; No clear to auscultation, No normal air movement, No labored breathing, No respirations, No tactile fremitus, No wheezing, No other Cardiovascular: regular rate and rhythm, nl pulses, bruits, edema (Both ankl es), systolic murmur; No diastolic murmur, No gallop, No irregular rhythm, No jugular venous diste ntion (JVD), No murmurs/extra sounds, No rub, No S3, No S4, No other Gastrointestinal: soft, nl liver, spleen, non-tender, bowel sounds, distended; No ascites, No firm, No hepatomegaly, No mass, No rebound or guarding, No splenomegaly, No surgical scars, No tender, No other Genitourinary - Male: nl penis, nl scrotum Musculoskeletal: nl gait and stance (Painful right leg mainly inferior medial aspect of the ankle is compromising walking but the wounds are healing nicely.), joint tenderness; No nl extremities to inspection, No muscle tone, No muscle weakness, No range of motion, No spine non-tender, No swelling, No other Extremities: normal pulses, edema; No calf tenderness, No cyanosis, No clubbing, No pitting pedal edema, No palpable cord, No tenderness, No other 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: SLOT TAG INSERTER II-XII intact, nl mental status, nl speech, nl strength, numbness; No confused, No DTR's symmetric, No focal weakness, No lethargic, No reflexes, No unresponsive, No other Skin: nl turgor; No rash or lesions, No diaphoresis, No ecchymosis, No laceration, No puncture , No other Lymph: No nl lymph nodes, No enlarged, No nontender, No other Results Results 24hrs Laboratory Tests Test 08/31/18 14:31 08/31/18 17:43 08/31/18 20:39 09/01/18 02:24 Bedside Glucose 141 242 H 198 126 Test 09/01/18 06:35 09/01/18 07:57 White Blood Count 3.9 #L Red Blood Count 2.82 L Hemoglobin 8.2 L Hematocrit 25.8 L Mean Corpuscular 91.5 Volume Mean Corpuscular 29.1 Hemoglobin Mean Corpuscular 31.8 L Hemoglobin Concent Red Cell 14.6 H Distribution Width Platelet Count 197 Mean Platelet Volume 11.3 H Immature 0.500 H Granulocytes % Neutrophils % 62.4 Lymphocytes % 19.2 Monocytes % 12.8 H Eosinophils % 4.6 Basophils % 0.5 Nucleated Red Blood 0.0 Cells % Immature 0.020 Granulocytes # Neutrophils # 2.4 Lymphocytes # 0.8 Monocytes # 0.5 Eosinophils # 0.2 Basophils # 0.0 Nucleated Red Blood 0.0 Cells # Sodium Level 136 Potassium Level 3.9 Chloride Level 99 Carbon Dioxide Level 29 Anion Gap 8 Blood Urea Nitrogen 29 H Creatinine 1.66 H Est Glomerular Filtrat Rate mL/min Glucose Level 103 Calcium Level 8.6 Total Bilirubin 1.0 Direct Bilirubin 0.00 Indirect Bilirubin 1.0 Aspartate Amino 331 H Transf (AST/SGOT) Alanine 242 H Aminotransferase (AL T/SGPT) Alkaline Phosphatase 398 H Total Protein 6.1 Albumin 3.2 L Globulin 2.90 Albumin/Globulin 1.10 Ratio Bedside Glucose 129 Medications Medication Current Medications Ondansetron HCl (Zofran Inj) 4 mg Q6H PRN IV NAUSEA AND/OR VOMITING; Start 08/21/18 at 21:08 Albumin Human 250 ml @ 500 mls/hr PRN PRN IV CVP< 8, OR SBP<90; Start 08/21/18 at 21:08 Clopidogrel Bisulfate (plaVIX) 75 mg DAILY NGT Last administered on 08/31/18at 08:37; Admin Dose 75 MG; Start 08/21/18 at 21:08 Levalbuterol (Xopenex Neb) 1.25 mg Q6H RESP THERAPY HHN Last administered on 09/01/18 02:28; Admin Dose 1.25 MG; Start 08/21/18 at 21:08 Ipratropium [place] (Atrovent 0.02% (Neb)) 0.5 mg Q6H RESP THERAPY HHN Last administered on 09/01/18 02:28; Admin Dose 0.5 MG; Start 08/21/18 at 21:08 Diagnostic Test (Pha) (Accu-Chek) 1 ea 02 XX Last administered on 08/28/18at 02:30; Admin Dose 1 EA; Start 08/21/18 at 21:08 Miscellaneous Information 1 ea NOTE XX ; Start 08/21/18 at 21:08 Glucose (Glutose) 15 gm Q15M PRN PO DECREASED GLUCOSE; Start 08/21/18 at 21:08 Glucose (Glutose) 22.5 gm Q15M PRN PO DECREASED GLUCOSE; Start 08/21/18 at 21:08 Dextrose (D50w Syringe) 25 ml Q15M PRN IV DECREASED GLUCOSE; Start 08/21/18 at 21:08 Dextrose (D50w Syringe) 50 ml Q15M PRN IV DECREASED GLUCOSE; Start 08/21/18 at 21:08 Glucagon (Glucagen) 1 mg Q15M PRN IM DECREASED GLUCOSE; Start 08/21/18 at 21:08 Glucose (Glutose) 15 gm Q15M PRN BUCCAL DECREASED GLUCOSE; Start 08/21/18 at 21:08 Furosemide (Lasix) 40 mg DAILY PO Last administered on 08/31/18at 08:38; Admin Dose 40 MG; Start 08/21/18 at 21:08 Famotidine (Pepcid) 20 mg DAILY PO Last administered on 08/31/18at 08:37; Admin Dose 20 MG; Start 08/21/18 at 21:08 Insulin Aspart (Novolog Insulin Pen) 10 unit WITH MEALS SC Last administered on 09/01/18at 08:11; Admin Dose 10 UNIT; Start 08/21/18 at 21:08 Insulin Aspart (Novolog Insulin Pen) NOVOLOG *MODERATE* ALGORITHM WITH MEALS BEDTIME SC Last administered on 08/31/18 21:10; Admin Dose 1 UNIT; Start 08/21/18 at 21:08 Oxycodone/ Acetaminophen (Endocet (10/ 325)) 1 tab Q4H PRN PO MODERATE PAIN LE DANITZA 4-6 Last administered on 08/31/18 14:29; Admin Dose 1 TAB; Start 08/21/18 at 21:08 Hydralazine HCl (Apresoline) 10 mg Q4H PRN IV SBP >150; Start 08/21/18 at 21:30 Acetaminophen (Tylenol Tab) 650 mg Q3H PRN PO ELEVATED TEMPERATURE Last administered on 08/26/18 15:46; Admin Dose 650 MG; Start 08/21/18 at 22:00 Ascorbic Acid (Vitamin C) 500 mg TID NGT Last administered on 08/31/18 21:08; Admin Dose 500 MG; Start 08/21/18 at 21:49 Carvedilol (Coreg) 12.5 mg BID PO Last administered on 08/31/18 21:09; Admin Dose 12.5 MG; Start 08/21/18 at 21:51 Docusate Sodium (Colace) 250 mg BID PO Last administered on 08/31/18 21:09; Admin Dose 250 MG; Start 08/21/18 at 21:51 Amlodipine Besylate (Norvasc) 5 mg DAILY PO Last administered on 08/31/18 08:38; Admin Dose 5 MG; Start 08/22/18 at 09:00 Magnesium Hydroxide (Milk Of Mag) 30 ml BID PRN PO CONSTIPATION Last administered on 08/22/18 17:19; Admin Dose 30 ML; Start 08/22/18 at 11:00 Lactulose (Enulose) 20 gm DAILY PRN PO CONSTIPATION Last administered on 08/22/18 12:44; Admin Dose 20 GM; Start 08/22/18 at 11:00 Bisacodyl (Dulcolax Supp) 10 mg DAILY PRN [place] CONSTIPATION; Start 08/22/18 at 11:00 Morphine Sulfate (morphine) 1 mg Q6H PRN IV SEVERE PAIN LEVEL 7-10; Start 08/23/18 at 07:00 Nitroglycerin (Nitroglycerin (Sl Tab) 0.4 Mg) 1 tab Q5M PRN SL ANGINA; Start 08/24/18 at 11:30 Gabapentin (Neurontin) 100 mg TID PO Last administered on 08/31/18 21:08; Admin Dose 100 MG; Start 08/25/18 at 13:00 Polyethylene Glycol (Miralax) 17 gm TID PRN PO CONSTIPATION; Start 08/25/18 at 12:00 Insulin Glargine (Lantus) 28 units 2100 SC Last administered on 08/31/18at 21:10; Admin Dose 28 UNITS; Start 08/26/18 at 21:00 Hydromorphone HCl (Dilaudid) 1 mg Q3 PRN IV SEVERE PAIN LEVEL 7-10 Last administered on 08/28/18 17:37; Admin Dose 1 MG; Start 08/27/18 at 13:00 Apixaban (Eliquis) 5 mg BID PO Last administered on 08/31/18 21:08; Admin Dose 5 MG; Start 08/29/18 at 11:00 Atorvastatin Calcium (Lipitor) 40 mg HS PO Last administered on 08/31/18at 2 1:09; Admin Dose 40 MG; Start 08/29/18 at 21:00 Ferric Sodium Gluconate Complex 125 mg/Sodium Chloride 110 ml @ 110 mls/hr DAILY@2300 IVPB Last administered on 08/30/18at 22:31; Admin Dose 110 MLS/HR; Start 08/30/18 at 23:00; Stop 09/02/18 at 23:59 Ferric Sodium Gluconate Complex 125 mg/Sodium Chloride 100 ml @ 100 mls/hr DAILY@1300 IVPB ; Start 08/31/18 at 13:00; Stop 09/02/18 at 13:59 NERIS BROTHERS MD September 01, 2018 08:51
[2018-09-01] MEDS: FUROSEMIDE 40 MG TAB PO SCH (09:02)
[2018-09-01] MEDS: APIXABAN 5 MG TABLET PO SCH ×2 (09:02→20:35)
[2018-09-01] MEDS: ASCORBIC ACID 500 MG TAB NGT SCH ×3 (09:02→20:35)
[2018-09-01] MEDS: GABAPENTIN 100 MG CAP PO SCH ×3 (09:02→20:35)
[2018-09-01] MEDS: CLOPIDOGREL 75 MG TAB NGT SCH (09:02)
[2018-09-01] MEDS: FAMOTIDINE 20 MG TAB PO SCH (09:02)
[2018-09-01] MEDS: AMLODIPINE 5 MG TAB PO SCH (09:02)
[2018-09-01] MEDS: DOCUSATE SODIUM 250 MG CAP PO SCH ×2 (09:02→20:35)
--- NOTE | 2018-09-01 09:02 | CONS ---
Assessment/Plan Assessment/Plan Hospital Course (Demo Recall) 73 yo male with h/o severe coronary artery disease, s/p multi vessel CABG, is referred to GI to evaluate for abnormal LFTs Interval hx: Amylase, lipase wnl. LFT was trending down but alk, alt, and ast are going up. Pt denies abd pain. States last bm 2 or 3 days ago. He is taking pain medications. NO nausea. Was not able to fit on MRI table. 1. Pancreatitis, likely biliary -lipid panel -US of liver pending -NPO -IVF for hydration 2. Transaminitis -elevated alk, alt, ast -monitor qd -US of liver -lipase and amylase -limit hepatatoxic medications -likely due to fatty liver 3. Severe coronary artery disease, S/P multi vessel CABG recently - pr cardiology team 4. Diabetes mellitus -per primary team 5. Renal failure -per nephrology team 6. Iron deficiency anemia -monitor HH and for acute GI bleeding, pt is on eliquis and plavix 7. Obesity 8. HTN 9. DM2 10. Fatty liver 11. Hepatosplenomegaly US of liver: 1. Sludge is noted within the gallbladder. There is no gallbladder wall thickening or pericholecystic fluid to suggest acute cholecystitis. 2. No biliary duct dilatation. 3. Fatty change of the liver. 4. Hepatosplenomegaly. 5. Slightly increased bilateral renal cortical echogenicity suggest medical renal disease. 6. Questionable 1.4 cm echogenic cortical lesion in the right kidney without corresponding abnormality seen on the previous CT scan. This is likely artifactual Plan: CT abd to evaluate transaminitis Monitor LFTs, lipase and amylase Monitor HH and for GI bleeding MRCP cancelled because pt did not fit on table Amitiza 24 mcg bid and miralax qd Pt examined and plan of care discussed with Dr. Bill Consultation Date/Type/Reason Admit Date/Time August 21, 2018 at 18:31 Initial Consult Date Requesting Provider: NERIS BROTHERS MD Date/Time of Note DATE: 09/01/18 TIME: 09:00 Exam/Review of Systems Exam Vitals Vital Signs Date Temp Pulse Resp B/P (MAP) Pulse Ox O2 O2 Flow FiO2 Time Delivery Rate 09/01/18 98.3 61 18 118/64 97 Room Air 07:50 (82) 09/01/18 2.0 02:28 08/29/18 28 13:53 Intake and Output 08/31/18 08/31/18 09/01/18 1515:00 23:00 07:00 IntakeIntake Total 800 ml 240 ml OutputOutput Total 600 ml 500 ml BalanceBalance 800 ml -600 ml -260 ml Constitutional: alert, oriented Head: normocephalic Eyes: PERRL Respiratory: diminished breath sounds Cardiovascular: regular rate and rhythm Gastrointestinal: soft, non-tender, other (obese) Musculoskeletal: muscle weakness Extremities: edema 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: nl mental status Results Result Diagram: 09/01/18 0635 09/01/18 0635 Results 24hrs Laboratory Tests Test 08/31/18 14:31 08/31/18 17:43 08/31/18 20:39 09/01/18 02:24 Bedside Glucose 141 242 H 198 126 Test 09/01/18 06:35 09/01/18 07:57 White Blood Count 3.9 #L Red Blood Count 2.82 L Hemoglobin 8.2 L Hematocrit 25.8 L Mean Corpuscular 91.5 Volume Mean Corpuscular 29.1 Hemoglobin Mean Corpuscular 31.8 L Hemoglobin Concent Red Cell 14.6 H Distribution Width Platelet Count 197 Mean Platelet Volume 11.3 H Immature 0.500 H Granulocytes % Neutrophils % 62.4 Lymphocytes % 19.2 Monocytes % 12.8 H Eosinophils % 4.6 Basophils % 0.5 Nucleated Red Blood 0.0 Cells % Immature 0.020 Granulocytes # Neutrophils # 2.4 Lymphocytes # 0.8 Monocytes # 0.5 Eosinophils # 0.2 Basophils # 0.0 Nucleated Red Blood 0.0 Cells # Sodium Level 136 Potassium Level 3.9 Chloride Level 99 Carbon Dioxide Level 29 Anion Gap 8 Blood Urea Nitrogen 29 H Creatinine 1.66 H Est Glomerular Filtrat Rate mL/min Glucose Level 103 Calcium Level 8.6 Total Bilirubin 1.0 Direct Bilirubin 0.00 Indirect Bilirubin 1.0 Aspartate Amino 331 H Transf (AST/SGOT) Alanine 242 H Aminotransferase (AL T/SGPT) Alkaline Phosphatase 398 H Total Protein 6.1 Albumin 3.2 L Globulin 2.90 Albumin/Globulin 1.10 Ratio Bedside Glucose 129 Medications Medication Current Medications Ondansetron HCl (Zofran Inj) 4 mg Q6H PRN IV NAUSEA AND/OR VOMITING; Start 08/21/18 at 21:08 Clopidogrel Bisulfate (plaVIX) 75 mg DAILY NGT Last administered on 08/31/18 08:37; Admin Dose 75 MG; Start 08/21/18 at 21:08 Levalbuterol (Xopenex Neb) 1.25 mg Q6H RESP THERAPY HHN Last administered on 09/01/18 02:28; Admin Dose 1.25 MG; Start 08/21/18 at 21:08 Ipratropium [place] (Atrovent 0.02% (Neb)) 0.5 mg Q6H RESP THERAPY HHN Last administered on 09/01/18 02:28; Admin Dose 0.5 MG; Start 08/21/18 at 21:08 Diagnostic Test (Pha) (Accu-Chek) 1 ea 02 XX Last administered on 08/28/18 02:30; Admin Dose 1 EA; Start 08/21/18 at 21:08 Miscellaneous Information 1 ea NOTE XX ; Start 08/21/18 at 21:08 Glucose (Glutose) 15 gm Q15M PRN PO DECREASED GLUCOSE; Start 08/21/18 at 21:08 Glucose (Glutose) 22.5 gm Q15M PRN PO DECREASED GLUCOSE; Start 08/21/18 at 21:08 Dextrose (D50w Syringe) 25 ml Q15M PRN IV DECREASED GLUCOSE; Start 08/21/18 at 21:08 Dextrose (D50w Syringe) 50 ml Q15M PRN IV DECREASED GLUCOSE; Start 08/21/18 at 21:08 Glucagon (Glucagen) 1 mg Q15M PRN IM DECREASED GLUCOSE; Start 08/21/18 at 21:08 Glucose (Glutose) 15 gm Q15M PRN BUCCAL DECREASED GLUCOSE; Start 08/21/18 at 21:08 Furosemide (Lasix) 40 mg DAILY PO Last administered on 08/31/18 08:38; Admin Dose 40 MG; Start 08/21/18 at 21:08 Famotidine (Pepcid) 20 mg DAILY PO Last administered on 08/31/18 08:37; Admin Dose 20 MG; Start 08/21/18 at 21:08 Insulin Aspart (Novolog Insulin Pen) 10 unit WITH MEALS SC Last administered on 09/01/18 08:11; Admin Dose 10 UNIT; Start 08/21/18 at 21:08 Insulin Aspart (Novolog Insulin Pen) NOVOLOG *MODERATE* ALGORITHM WITH MEALS BEDTIME SC Last administered on 08/31/18 21:10; Admin Dose 1 UNIT; Start 08/21/18 at 21:08 Oxycodone/ Acetaminophen (Endocet (10/ 325)) 1 tab Q4H PRN PO MODERATE PAIN LEVEL 4-6 Last administered on 08/31/18 14:29; Admin Dose 1 TAB; Start 08/21/18 at 21:08 Hydralazine HCl (Apresoline) 10 mg Q4H PRN IV SBP >150; Start 08/21/18 at 21:30 Acetaminophen (Tylenol Tab) 650 mg Q3H PRN PO ELEVATED TEMPERATURE Last administered on 08/26/18 15:46; Admin Dose 650 MG; Start 08/21/18 at 22:00 Ascorbic Acid (Vitamin C) 500 mg TID NGT Last administered on 08/31/18 21:08; Admin Dose 500 MG; Start 08/21/18 at 21:49 Carvedilol (Coreg) 12.5 mg BID PO Last administered on 08/31/18 21:09; Admin Dose 12.5 MG; Start 08/21/18 at 21:51 Docusate Sodium (Colace) 250 mg BID PO Last administered on 08/31/18 21:09; Admin Dose 250 MG; Start 08/21/18 at 21:51 Amlodipine Besylate (Norvasc) 5 mg DAILY PO Last administered on 08/31/18 08:38; Admin Dose 5 MG; Start 08/22/18 at 09:00 Magnesium Hydroxide (Milk Of Mag) 30 ml BID PRN PO CONSTIPATION Last administered on 08/22/18 17:19; Admin Dose 30 ML; Start 08/22/18 at 11:00 Lactulose (Enulose) 20 gm DAILY PRN PO CONSTIPATION Last administered on 08/22/18 12:44; Admin Dose 20 GM; Start 08/22/18 at 11:00 Bisacodyl (Dulcolax Supp) 10 mg DAILY PRN [place] CONSTIPATION; Start 08/22/18 at 11:00 Morphine Sulfate (morphine) 1 mg Q6H PRN IV SEVERE PAIN LEVEL 7-10; Start 08/23/18 at 07:00 Nitroglycerin (Nitroglycerin (Sl Tab) 0.4 Mg) 1 tab Q5M PRN SL ANGINA; Start 08/24/18 at 11:30 Gabapentin (Neurontin) 100 mg TID PO Last administered on 08/31/18 21:08; Admin Dose 100 MG; Start 08/25/18 at 13:00 Polyethylene Glycol (Miralax) 17 gm TID PRN PO CONSTIPATION; Start 08/25/18 at 12:00 Insulin Glargine (Lantus) 28 units 2100 SC Last administered on 08/31/18 21: 10; Admin Dose 28 UNITS; Start 08/26/18 at 21:00 Hydromorphone HCl (Dilaudid) 1 mg Q3 PRN IV SEVERE PAIN LEVEL 7-10 Last administered on 08/28/18 17:37; Admin Dose 1 MG; Start 08/27/18 at 13:00 Apixaban (Eliquis) 5 mg BID PO Last administered on 08/31/18 21:08; Admin Dose 5 MG; Start 08/29/18 at 11:00 Atorvastatin Calcium (Lipitor) 40 mg HS PO Last administered on 08/31/18 21:09; Admin Dose 40 MG; Start 08/29/18 at 21:00 Polysaccharide Iron Complex (Niferex-150) 1 cap BID PO ; Start 09/01/18 at 09:00 BRIAN REDDY September 01, 2018 09:02
--- NOTE | 2018-09-01 10:17 | CONS ---
Assessment/Plan Assessment/Plan Assessment/Plan (Daily) 1. acute kidney injury vs possible baseline CKD II due to ishcemic ATN + Hemodynamics 2. 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 H/o HTN 4. H/o HL 5. H/o DM II 6. H/o CAD with previous stent placement 7. Anemia of chronic disease with iron deficiency s/p 5 days of IV iron Plan: BUN/Cr slightly better to 29/1.66, electrolytes stable - On lasix 40mg po daily, will spot dose of lasix as needed amlodipine 5 mg po daily, Eliquis 5mg pO BID will follow up Consultation Date/Type/Reason Admit Date/Time August 21, 2018 at 18:31 Initial Consult Date Type of Consult NEPHROLOGY Requesting Provider: NERIS BROTHERS MD Date/Time of Note DATE: 09/01/18 TIME: 10:17 Exam/Review of Systems Exam Vitals Vital Signs Date Temp Pulse Resp B/P (MAP) Pulse Ox O2 O2 Flow FiO2 Time Delivery Rate 09/01/18 Nasal 2.0 08:30 Cannula 09/01/18 98.3 61 18 118/64 97 07:50 (82) 08/29/18 28 13:53 Intake and Output 08/31/18 08/31/18 09/01/18 1515:00 23:00 07:00 IntakeIntake Total 800 ml 240 ml OutputOutput Total 600 ml 500 ml BalanceBalance 800 ml -600 ml -260 ml Constitutional: alert Psych: no complaints Head: normocephalic Eyes: nl conjunctiva ENMT: nl external ears & nose Neck: supple, non-tender Respiratory: clear to auscultation, normal air movement, diminished breath sounds Cardiovascular: regular rate and rhythm, nl pulses Gastrointestinal: soft, non-tender Musculoskeletal: nl extremities to inspection Extremities: normal pulses 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: PET FEEDER II-XII intact, nl mental status, nl speech Skin: nl turgor Lymph: nl lymph nodes Results Result Diagram: 09/01/18 0635 09/01/18 0635 Results 24hrs Laboratory Tests Test 08/31/18 14:31 08/31/18 17:43 08/31/18 20:39 09/01/18 02:24 Bedside Glucose 141 242 H 198 126 Test 09/01/18 06:30 09/01/18 06:35 09/01/18 07:57 Amylase Level 67 Lipase 299 White Blood Count 3.9 #L Red Blood Count 2.82 L Hemoglobin 8.2 L Hematocrit 25.8 L Mean Corpuscular 91.5 Volume Mean Corpuscular 29.1 Hemoglobin Mean Corpuscular 31.8 L Hemoglobin Concent Red Cell 14.6 H Distribution Width Platelet Count 197 Mean Platelet Volume 11.3 H Immature 0.500 H Granulocytes % Neutrophils % 62.4 Lymphocytes % 19.2 Monocytes % 12.8 H Eosinophils % 4.6 Basophils % 0.5 Nucleated Red Blood 0.0 Cells % Immature 0.020 Granulocytes # Neutrophils # 2.4 Lymphocytes # 0.8 Monocytes # 0.5 Eosinophils # 0.2 Basophils # 0.0 Nucleated Red Blood 0.0 Cells # Sodium Level 136 Potassium Level 3.9 Chloride Level 99 Carbon Dioxide Level 29 Anion Gap 8 Blood Urea Nitrogen 29 H Creatinine 1.66 H Est Glomerular Filtrat Rate mL/min Glucose Level 103 Calcium Level 8.6 Total Bilirubin 1.0 Direct Bilirubin 0.00 Indirect Bilirubin 1.0 Aspartate Amino 331 H Transf (AST/SGOT) Alanine 242 H Aminotransferase (AL T/SGPT) Alkaline Phosphatase 398 H Total Protein 6.1 Albumin 3.2 L Globulin 2.90 Albumin/Globulin 1.10 Ratio Bedside Glucose 129 Medications Medication Current Medications Ondansetron HCl (Zofran Inj) 4 mg Q6H PRN IV NAUSEA AND/OR VOMITING; Start 08/21/18 at 21:08 Clopidogrel Bisulfate (plaVIX) 75 mg DAILY NGT Last administered on 09/01/18 09:02; Admin Dose 75 MG; Start 08/21/18 at 21:08 Levalbuterol (Xopenex Neb) 1.25 mg Q6H RESP THERAPY HHN Last administered on 09/01/18 02:28; Admin Dose 1.25 MG; Start 08/21/18 at 21:08 Ipratropium [place] (Atrovent 0.02% (Neb)) 0.5 mg Q6H RESP THERAPY HHN Last administered on 09/01/18 02:28; Admin Dose 0.5 MG; Start 08/21/18 at 21:08 Diagnostic Test (Pha) (Accu-Chek) 1 ea 02 XX Last administered on 08/28/18 02:30; Admin Dose 1 EA; Start 08/21/18 at 21:08 Miscellaneous Information 1 ea NOTE XX ; Start 08/21/18 at 21:08 Glucose (Glutose) 15 gm Q15M PRN PO DECREASED GLUCOSE; Start 08/21/18 at 21:08 Glucose (Glutose) 22.5 gm Q15M PRN PO DECREASED GLUCOSE; Start 08/21/18 at 21:08 Dextrose (D50w Syringe) 25 ml Q15M PRN IV DECREASED GLUCOSE; Start 08/21/18 at 21:08 Dextrose (D50w Syringe) 50 ml Q15M PRN IV DECREASED GLUCOSE; Start 08/21/18 at 21:08 Glucagon (Glucagen) 1 mg Q15M PRN IM DECREASED GLUCOSE; Start 08/21/18 at 21:08 Glucose (Glutose) 15 gm Q15M PRN BUCCAL DECREASED GLUCOSE; Start 08/21/18 at 21:08 Furosemide (Lasix) 40 mg DAILY PO Last administered on 09/01/18at 09:02; Admin Dose 40 MG; Start 08/21/18 at 21:08 Famotidine (Pepcid) 20 mg DAILY PO Last administered on 09/01/18at 09:02; Admin Dose 20 MG; Start 08/21/18 at 21:08 Insulin Aspart (Novolog Insulin Pen) 10 unit WITH MEALS SC Last administered on 09/01/18at 08:11; Admin Dose 10 UNIT; Start 08/21/18 at 21:08 Insulin Aspart (Novolog Insulin Pen) NOVOLOG *MODERATE* ALGORITHM WITH MEALS BEDTIME SC Last administered on 08/31/18at 21:10; Admin Dose 1 UNIT; Start 08/21/18 at 21:08 Oxycodone/ Acetaminophen (Endocet (10/ 325)) 1 tab Q4H PRN PO MODERATE PAIN LEVEL 4-6 Last administered on 08/31/18at 14:29; Admin Dose 1 TAB; Start 08/21/18 at 21:08 Hydralazine HCl (Apresoline) 10 mg Q4H PRN IV SBP >150; Start 08/21/18 at 21:30 Acetaminophen (Tylenol Tab) 650 mg Q3H PRN PO ELEVATED TEMPERATURE Last administered on 08/26/18at 15:46; Admin Dose 650 MG; Start 08/21/18 at 22:00 Ascorbic Acid (Vitamin C) 500 mg TID NGT Last administered on 09/01/18 09:02; Admin Dose 500 MG; Start 08/21/18 at 21:49 Carvedilol (Coreg) 12.5 mg BID PO Last administered on 09/01/18 09:03; Admin Dose 12.5 MG; Start 08/21/18 at 21:51 Docusate Sodium (Colace) 250 mg BID PO Last administered on 09/01/18 09:02; Admin Dose 250 MG; Start 08/21/18 at 21:51 Amlodipine Besylate (Norvasc) 5 mg DAILY PO Last administered on 09/01/18 09:02; Admin Dose 5 MG; Start 08/22/18 at 09:00 Magnesium Hydroxide (Milk Of Mag) 30 ml BID PRN PO CONSTIPATION Last administered on 08/22/18 17:19; Admin Dose 30 ML; Start 08/22/18 at 11:00 Lactulose (Enulose) 20 gm DAILY PRN PO CONSTIPATION Last administered on 08/22/18 12:44; Admin Dose 20 GM; Start 08/22/18 at 11:00 Bisacodyl (Dulcolax Supp) 10 mg DAILY PRN [place] CONSTIPATION; Start 08/22/18 at 11:00 Morphine Sulfate (morphine) 1 mg Q6H PRN IV SEVERE PAIN LEVEL 7-10; Start 08/23/18 at 07:00 Nitroglycerin (Nitroglycerin (Sl Tab) 0.4 Mg) 1 tab Q5M PRN SL ANGINA; Start 08/24/18 at 11:30 Gabapentin (Neurontin) 100 mg TID PO Last administered on 09/01/18 09:02; Admin Dose 100 MG; Start 08/25/18 at 13:00 Polyethylene Glycol (Miralax) 17 gm TID PRN PO CONSTIPATION; Start 08/25/18 at 12:00 Insulin Glargine (Lantus) 28 units 2100 SC Last administered on 08/31/18 21:10; Admin Dose 28 UNITS; Start 08/26/18 at 21:00 Hydromorphone HCl (Dilaudid) 1 mg Q3 PRN IV SEVERE PAIN LEVEL 7-10 Last administered on 08/28/18 17:37; Admin Dose 1 MG; Start 08/27/18 at 13:00 Apixaban (Eliquis) 5 mg BID PO Last administered on 09/01/18at 09:02; Admin Dose 5 MG; Start 08/29/18 at 11:00 Atorvastatin Calcium (Lipitor) 40 mg HS PO Last administered on 08/31/18at 21:09; Admin Dose 40 MG; Start 08/29/18 at 21:00 Polysaccharide Iron Complex (Niferex-150) 1 cap BID PO ; Start 09/01/18 at 09:00 Lubiprostone (Amitiza) 24 mcg BID PO ; Start 09/01/18 at 21:00 Polyethylene Glycol (Miralax) 17 gm DAILY GTB ; Start 09/02/18 at 09:00 DARRYL SOOD MD September 01, 2018 10:17
[2018-09-01] MEDS: POLYSACCHARIDE IRON COMPLEX CAP PO SCH ×2 (10:24→20:35)
--- NOTE | 2018-09-01 11:35 | CONS ---
Assessment/Plan Assessment/Plan Hospital Course (Demo Recall) Pancreatitis:had an episode few months ago and was hospitalized at [facility]. No gallstones at that time. Not a drinker, TG ok in the past. Possibly sludge/small stones. Resolved based on symptoms and lipase Transaminitis: due to above. Improved but now slightly worse again but no symptoms Acute on chronic diastolic CHF: Still volume up NSTEMI: residual trop elevation likely from CABG. Trend does not suggest ACS. No symptoms. Ankle pain: XR without fracture. Improving Acute on chronic renal failure: Cr baseline 1.6. Worse after CABG.Now back to baseline Cardiogenic shock: Transient post op Acute respiratory failure: s/p extubation 08/16 Anemia: from operative blood loss. Required one unit. No active bleeding s/p CABG x5 08/13/18: WINN to LAD, SVG to ramus sequence to obtuse marginal artery, SVG to PDA, SVG to left ventricular extension branch. Difficult case per Dr. Howell with poor targets. CAD: s/p multiple prior PCIs. Cath 08/11/18 with multivessel disease. s/p CABG a antonio Recent left femoral DVT: on Eliquis as outpt. DM HT HL -would avoid IV contrast studies. I asked RN to notify the ordering provider -change lasix to bumex 1mg daily including an extra dose today -hold lipitor 40mg -Eliquis 5mg BID -continue plavix -coreg 12.5mg BID -amlodipine 5mg Consultation Date/Type/Reason Admit Date/Time August 21, 2018 at 18:31 Initial Consult Date Type of Consult Cardiology Requesting Provider: NERIS BROTHERS MD Date/Time of Note DATE: 09/01/18 TIME: 11:32 24 HR Interval Summary Free Text/Dictation Right ankle pain worse again. No chest pain or SOB. No abdominal pain. LFTs worse again but lipase normal. Exam/Review of Systems Vital Signs Vitals Vital Signs Date Temp Pulse Resp B/P (MAP) Pulse Ox O2 O2 Flow FiO2 Time Delivery Rate 09/01/18 Nasal 2.0 08:30 Cannula 09/01/18 98.3 61 18 118/64 97 07:50 (82) 08/29/18 28 13:53 Intake and Output 08/31/18 08/31/18 09/01/18 1515:00 23:00 07:00 IntakeIntake Total 800 ml 240 ml OutputOutput Total 600 ml 500 ml BalanceBalance 800 ml -600 ml -260 ml Exam Constitutional: alert, oriented Psych: no complaints, nl mood/affect Head: normocephalic, atraumatic Respiratory: crackles/rales (mild at bases); No clear to auscultation Cardiovascular: regular rate and rhythm, edema (1-2+) Gastrointestinal: soft, non-tender 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: nl mental status, nl speech Labs Result Diagram: 09/01/18 0635 09/01/18 0635 Results 24hrs Laboratory Tests Test 08/31/18 14:31 08/31/18 17:43 08/31/18 20:39 09/01/18 02:24 Bedside Glucose 141 242 H 198 126 Test 09/01/18 06:30 09/01/18 06:35 09/01/18 07:57 Amylase Level 67 Lipase 299 White Blood Count 3.9 #L Red Blood Count 2.82 L Hemoglobin 8.2 L Hematocrit 25.8 L Mean Corpuscular 91.5 Volume Mean Corpuscular 29.1 Hemoglobin Mean Corpuscular 31.8 L Hemoglobin Concent Red Cell 14.6 H Distribution Width Platelet Count 197 Mean Platelet Volume 11.3 H Immature 0.500 H Granulocytes % Neutrophils % 62.4 Lymphocytes % 19.2 Monocytes % 12.8 H Eosinophils % 4.6 Basophils % 0.5 Nucleated Red Blood 0.0 Cells % Immature 0.020 Granulocytes # Neutrophils # 2.4 Lymphocytes # 0.8 Monocytes # 0.5 Eosinophils # 0.2 Basophils # 0.0 Nucleated Red Blood 0.0 Cells # Sodium Level 136 Potassium Level 3.9 Chloride Level 99 Carbon Dioxide Level 29 Anion Gap 8 Blood Urea Nitrogen 29 H Creatinine 1.66 H Est Glomerular Filtrat Rate mL/min Glucose Level 103 Calcium Level 8.6 Total Bilirubin 1.0 Direct Bilirubin 0.00 Indirect Bilirubin 1.0 Aspartate Amino 331 H Transf (AST/SGOT) Alanine 242 H Aminotransferase (AL T/SGPT) Alkaline Phosphatase 398 H Total Protein 6.1 Albumin 3.2 L Globulin 2.90 Albumin/Globulin 1.10 Ratio Bedside Glucose 129 Medications Medications Current Medications Ondansetron HCl (Zofran Inj) 4 mg Q6H PRN IV NAUSEA AND/OR VOMITING; Start 08/21/18 at 21:08 Clopidogrel Bisulfate (plaVIX) 75 mg DAILY NGT Last administered on 09/01/18 09:02; Admin Dose 75 MG; Start 08/21/18 at 21:08 Levalbuterol (Xopenex Neb) 1.25 mg Q6H RESP THERAPY HHN Last administered on 09/01/18 02:28; Admin Dose 1.25 MG; Start 08/21/18 at 21:08 Ipratropium [place] (Atrovent 0.02% (Neb)) 0.5 mg Q6H RESP THERAPY HHN Last administered on 09/01/18 02:28; Admin Dose 0.5 MG; Start 08/21/18 at 21:08 Diagnostic Test (Pha) (Accu-Chek) 1 ea 02 XX Last administered on 08/28/18at 02:30; Admin Dose 1 EA; Start 08/21/18 at 21:08 Miscellaneous Information 1 ea NOTE XX ; Start 08/21/18 at 21:08 Glucose (Glutose) 15 gm Q15M PRN PO DECREASED GLUCOSE; Start 08/21/18 at 21:08 Glucose (Glutose) 22.5 gm Q15M PRN PO DECREASED GLUCOSE; Start 08/21/18 at 21:08 Dextrose (D50w Syringe) 25 ml Q15M PRN IV DECREASED GLUCOSE; Start 08/21/18 at 21:08 Dextrose (D50w Syringe) 50 ml Q15M PRN IV DECREASED GLUCOSE; Start 08/21/18 at 21:08 Glucagon (Glucagen) 1 mg Q15M PRN IM DECREASED GLUCOSE; Start 08/21/18 at 21:08 Glucose (Glutose) 15 gm Q15M PRN BUCCAL DECREASED GLUCOSE; Start 08/21/18 at 21:08 Furosemide (Lasix) 40 mg DAILY PO Last administered on 09/01/18 09:02; Admin Dose 40 MG; Start 08/21/18 at 21:08 Famotidine (Pepcid) 20 mg DAILY PO Last administered on 09/01/18 09:02; Admin Dose 20 MG; Start 08/21/18 at 21:08 Insulin Aspart (Novolog Insulin Pen) 10 unit WITH MEALS SC Last administered on 09/01/18 08:11; Admin Dose 10 UNIT; Start 08/21/18 at 21:08 Insulin Aspart (Novolog Insulin Pen) NOVOLOG *MODERATE* ALGORITHM WITH MEALS BEDTIME SC Last administered on 08/31/18 21:10; Admin Dose 1 UNIT; Start 08/21/18 at 21:08 Oxycodone/ Acetaminophen (Endocet (10/ 325)) 1 tab Q4H PRN PO MODERATE PAIN LEVEL 4-6 Last administered on 08/31/18 14:29; Admin Dose 1 TAB; Start 08/21/18 at 21:08 Hydralazine HCl (Apresoline) 10 mg Q4H PRN IV SBP >150; Start 08/21/18 at 21:30 Acetaminophen (Tylenol Tab) 650 mg Q3H PRN PO ELEVATED TEMPERATURE Last administered on 08/26/18 15:46; Admin Dose 650 MG; Start 08/21/18 at 22:00 Ascorbic Acid (Vitamin C) 500 mg TID NGT Last administered on 09/01/18 09:02; Admin Dose 500 MG; Start 08/21/18 at 21:49 Carvedilol (Coreg) 12.5 mg BID PO Last administered on 09/01/18 09:03; Admin Dose 12.5 MG; Start 08/21/18 at 21:51 Docusate Sodium (Colace) 250 mg BID PO Last administered on 09/01/18 09:02; Admin Dose 250 MG; Start 08/21/18 at 21:51 Amlodipine Besylate (Norvasc) 5 mg DAILY PO Last administered on 09/01/18 09:02; Admin Dose 5 MG; Start 08/22/18 at 09:00 Magnesium Hydroxide (Milk Of Mag) 30 ml BID PRN PO CONSTIPATION Last administered on 08/22/18 17:19; Admin Dose 30 ML; Start 08/22/18 at 11:00 Lactulose (Enulose) 20 gm DAILY PRN PO CONSTIPATION Last administered on 08/22/18 12:44; Admin Dose 20 GM; Start 08/22/18 at 11:00 Bisacodyl (Dulcolax Supp) 10 mg DAILY PRN [place] CONSTIPATION; Start 08/22/18 at 11:00 Morphine Sulfate (morphine) 1 mg Q6H PRN IV SEVERE PAIN LEVEL 7-10; Start 08/23/18 at 07:00 Nitroglycerin (Nitroglycerin (Sl Tab) 0.4 Mg) 1 tab Q5M PRN SL ANGINA; Start 08/24/18 at 11:30 Gabapentin (Neurontin) 100 mg TID PO Last administered on 09/01/18 09:02; Admin Dose 100 MG; Start 08/25/18 at 13:00 Polyethylene Glycol (Miralax) 17 gm TID PRN PO CONSTIPATION; Start 08/25/18 at 12:00 Insulin Glargine (Lantus) 28 units 2100 SC Last administered on 08/31/18at 21:10; Admin Dose 28 UNITS; Start 08/26/18 at 21:00 Hydromorphone HCl (Dilaudid) 1 mg Q3 PRN IV SEVERE PAIN LEVEL 7-10 Last administered on 08/28/18 17:37; Admin Dose 1 MG; Start 08/27/18 at 13:00 Apixaban (Eliquis) 5 mg BID PO Last administered on 09/01/18 09:02; Admin Dose 5 MG; Start 08/29/18 at 11:00 Polysaccharide Iron Complex (Niferex-150) 1 cap BID PO Last administered on 09/01/18at 10:24; Admin Dose 1 CAP; Start 09/01/18 at 09:00 Lubiprostone (Amitiza) 24 mcg BID PO ; Start 09/01/18 at 21:00 Polyethylene Glycol (Miralax) 17 gm DAILY GTB ; Start 09/02/18 at 09:00 ALONDRA GILBERT September 01, 2018 11:35
--- NOTE | 2018-09-01 13:37 | PN ---
Date/Time of Note Date/Time of Note DATE: 09/01/18 TIME: 13:37 Objective Vital Signs Date Temp Pulse Resp B/P (MAP) Pulse Ox O2 O2 Flow FiO2 Time Delivery Rate 09/01/18 2.0 13:36 09/01/18 Nasal 08:30 Cannula 09/01/18 98.3 61 18 118/64 97 07:50 (82) 08/29/18 28 13:53 Intake and Output 08/31/18 08/31/18 09/01/18 1515:00 23:00 07:00 IntakeIntake Total 800 ml 240 ml OutputOutput Total 600 ml 500 ml BalanceBalance 800 ml -600 ml -260 ml Exam INTERDISCIPLINARY TEAM CONFERENCE Attended by PT, OT, ST, Phlebotomy Services Representative, Social Work, Rehabilitation Nursing, Crystallographer and Credit Resolution RepresentativeTank Builder And Erector Exam: Pulm-cta Abd-soft BOWEL- Cont BLADDER-Cont SKIN- improving OT- DRESSING-min/max BATHING-mod TOILETING-mod PT- BED MOBILITY-mod TRANSFERS-min AMBULATION-min 20 feet A/P- Interdisciplinary team conference held today. Please see interdisciplinary sheet. Working toward d.c. on 09/06 with post discharge follow up of physical therapy, occupational therapy. Results/Medications Result Diagram: 09/01/18 0635 09/01/18 0635 Results 24 hrs Laboratory Tests Test 08/31/18 14:31 08/31/18 17:43 08/31/18 20:39 09/01/18 02:24 Bedside Glucose 141 242 H 198 126 Test 09/01/18 06:30 09/01/18 06:35 09/01/18 07:57 Amylase Level 67 Lipase 299 White Blood Count 3.9 #L Red Blood Count 2.82 L Hemoglobin 8.2 L Hematocrit 25.8 L Mean Corpuscular 91.5 Volume Mean Corpuscular 29.1 Hemoglobin Mean Corpuscular 31.8 L Hemoglobin Concent Red Cell 14.6 H Distribution Width Platelet Count 197 Mean Platelet Volume 11.3 H Immature 0.500 H Granulocytes % Neutrophils % 62.4 Lymphocytes % 19.2 Monocytes % 12.8 H Eosinophils % 4.6 Basophils % 0.5 Nucleated Red Blood 0.0 Cells % Immature 0.020 Granulocytes # Neutrophils # 2.4 Lymphocytes # 0.8 Monocytes # 0.5 Eosinophils # 0.2 Basophils # 0.0 Nucleated Red Blood 0.0 Cells # Sodium Level 136 Potassium Level 3.9 Chloride Level 99 Carbon Dioxide Level 29 Anion Gap 8 Blood Urea Nitrogen 29 H Creatinine 1.66 H Est Glomerular Filtrat Rate mL/min Glucose Level 103 Calcium Level 8.6 Total Bilirubin 1.0 Direct Bilirubin 0.00 Indirect Bilirubin 1.0 Aspartate Amino 331 H Transf (AST/SGOT) Alanine 242 H Aminotransferase (AL T/SGPT) Alkaline Phosphatase 398 H Total Protein 6.1 Albumin 3.2 L Globulin 2.90 Albumin/Globulin 1.10 Ratio Bedside Glucose 129 Medications Current Medications Ondansetron HCl (Zofran Inj) 4 mg Q6H PRN IV NAUSEA AND/OR VOMITING; Start 08/21/18 at 21:08 Clopidogrel Bisulfate (plaVIX) 75 mg DAILY NGT Last administered on 09/01/18at 09:02; Admin Dose 75 MG; Start 08/21/18 at 21:08 Levalbuterol (Xopenex Neb) 1.25 mg Q6H RESP THERAPY HHN Last administered on 09/01/18at 02:28; Admin Dose 1.25 MG; Start 08/21/18 at 21:08 Ipratropium [place] (Atrovent 0.02% (Neb)) 0.5 mg Q6H RESP THERAPY HHN Last administered on 09/01/18at 02:28; Admin Dose 0.5 MG; Start 08/21/18 at 21:08 Diagnostic Test (Pha) (Accu-Chek) 1 ea 02 XX Last administered on 08/28/18at 02:30; Admin Dose 1 EA; Start 08/21/18 at 21:08 Miscellaneous Information 1 ea NOTE XX ; Start 08/21/18 at 21:08 Glucose (Glutose) 15 gm Q15M PRN PO DECREASED GLUCOSE; Start 08/21/18 at 21:08 Glucose (Glutose) 22.5 gm Q15M PRN PO DECREASED GLUCOSE; Start 08/21/18 at 21:08 Dextrose (D50w Syringe) 25 ml Q15M PRN IV DECREASED GLUCOSE; Start 08/21/18 at 21:08 Dextrose (D50w Syringe) 50 ml Q15M PRN IV DECREASED GLUCOSE; Start 08/21/18 at 21:08 Glucagon (Glucagen) 1 mg Q15M PRN IM DECREASED GLUCOSE; Start 08/21/18 at 21:08 Glucose (Glutose) 15 gm Q15M PRN BUCCAL DECREASED GLUCOSE; Start 08/21/18 at 21:08 Famotidine (Pepcid) 20 mg DAILY PO Last administered on 09/01/18 09:02; Admin Dose 20 MG; Start 08/21/18 at 21:08 Insulin Aspart (Novolog Insulin Pen) 10 unit WITH MEALS SC Last administered on 09/01/18 08:11; Admin Dose 10 UNIT; Start 08/21/18 at 21:08 Insulin Aspart (Novolog Insulin Pen) NOVOLOG *MODERATE* ALGORITHM WITH MEALS BEDTIME SC Last administered on 08/31/18 21:10; Admin Dose 1 UNIT; Start 08/21/18 at 21:08 Oxycodone/ Acetaminophen (Endocet (10/ 325)) 1 tab Q4H PRN PO MODERATE PAIN LEVEL 4-6 Last administered on 08/31/18 14:29; Admin Dose 1 TAB; Start 08/21/18 at 21:08 Hydralazine HCl (Apresoline) 10 mg Q4H PRN IV SBP >150; Start 08/21/18 at 21:30 Acetaminophen (Tylenol Tab) 650 mg Q3H PRN PO ELEVATED TEMPERATURE Last administered on 08/26/18 15:46; Admin Dose 650 MG; Start 08/21/18 at 22:00 Ascorbic Acid (Vitamin C) 500 mg TID NGT Last administered on 09/01/18 09:02; Admin Dose 500 MG; Start 08/21/18 at 21:49 Carvedilol (Coreg) 12.5 mg BID PO Last administered on 09/01/18 09:03; Admin Dose 12.5 MG; Start 08/21/18 at 21:51 Docusate Sodium (Colace) 250 mg BID PO Last administered on 09/01/18 09:02; Admin Dose 250 MG; Start 08/21/18 at 21:51 Amlodipine Besylate (Norvasc) 5 mg DAILY PO Last administered on 09/01/18 09:02; Admin Dose 5 MG; Start 08/22/18 at 09:00 Magnesium Hydroxide (Milk Of Mag) 30 ml BID PRN PO CONSTIPATION Last administ ered on 08/22/18 17:19; Admin Dose 30 ML; Start 08/22/18 at 11:00 Lactulose (Enulose) 20 gm DAILY PRN PO CONSTIPATION Last administered on 08/22/18 12:44; Admin Dose 20 GM; Start 08/22/18 at 11:00 Bisacodyl (Dulcolax Supp) 10 mg DAILY PRN [place] CONSTIPATION; Start 08/22/18 at 11:00 Morphine Sulfate (morphine) 1 mg Q6H PRN IV SEVERE PAIN LEVEL 7-10; Start 08/23/18 at 07:00 Nitroglycerin (Nitroglycerin (Sl Tab) 0.4 Mg) 1 tab Q5M PRN SL ANGINA; Start 08/24/18 at 11:30 Gabapentin (Neurontin) 100 mg TID PO Last administered on 09/01/18 09:02; Admin Dose 100 MG; Start 08/25/18 at 13:00 Polyethylene Glycol (Miralax) 17 gm TID PRN PO CONSTIPATION; Start 08/25/18 at 12:00 Insulin Glargine (Lantus) 28 units 2100 SC Last administered on 08/31/18at 21:10; Admin Dose 28 UNITS; Start 08/26/18 at 21:00 Hydromorphone HCl (Dilaudid) 1 mg Q3 PRN IV SEVERE PAIN LEVEL 7-10 Last administered on 08/28/18 17:37; Admin Dose 1 MG; Start 08/27/18 at 13:00 Apixaban (Eliquis) 5 mg BID PO Last administered on 09/01/18 09:02; Admin Dose 5 MG; Start 08/29/18 at 11:00 Polysaccharide Iron Complex (Niferex-150) 1 cap BID PO Last administered on 09/01/18at 10:24; Admin Dose 1 CAP; Start 09/01/18 at 09:00 Lubiprostone (Amitiza) 24 mcg BID PO ; Start 09/01/18 at 21:00 Polyethylene Glycol (Miralax) 17 gm DAILY GTB ; Start 09/02/18 at 09:00 Bumetanide (Bumex) 1 mg DAILY PO ; Start 09/01/18 at 12:00 YARIEL MARIE MD September 01, 2018 13:37
[2018-09-01] MEDS: BUMETANIDE 1 MG TAB PO SCH (13:40)
[2018-09-01 14:27] VITALS: BP 157/73; PULSE 66; RESP 17
[2018-09-01] MEDS: MAGNESIUM HYDROXIDE 30ML CUP PO PRN (14:48)
[2018-09-01 14:55] VITALS: BP 135/69; PULSE 67
[2018-09-01 20:00] VITALS: BP 148/61; PULSE 68; RESP 18
[2018-09-01] MEDS: INSULIN GLARGINE [LANTus] (100 UNITS/ML) SYG SC SCH (20:34)
[2018-09-01] MEDS: LUBIPROSTONE 24 MCG CAP PO SCH (20:34)
[2018-09-02 02:00] VITALS: BP 121/61; PULSE 63; RESP 18
[2018-09-02] MEDS: ACCU-CHEK XX SCH (02:00)
[2018-09-02] MEDS: IPRATROPIUM (NEB) 0.5 MG/2.5 ML AMP HHN SCH ×4 (02:30→19:27)
[2018-09-02] MEDS: LEVALBUTEROL (NEB) 1.25 MG/0.5 ML AMP HHN SCH ×4 (02:30→19:28)
[2018-09-02 07:43] VITALS: BP 118/56; PULSE 57; RESP 18
[2018-09-02] MEDS: HYDROmorphONE 1 MG/ML SYG IV PRN ×4 (07:49→18:21)
[2018-09-02 08:00] VITALS: BP 129/79; PULSE 78; RESP 18
[2018-09-02] MEDS: INSULIN ASPART [NOVOLOG] 3 ML PEN SC SCH ×7 (08:00→20:29)
[2018-09-02] MEDS: POLYSACCHARIDE IRON COMPLEX CAP PO SCH ×2 (08:45→20:24)
[2018-09-02] MEDS: ASCORBIC ACID 500 MG TAB NGT SCH ×3 (08:46→20:25)
[2018-09-02] MEDS: BUMETANIDE 1 MG TAB PO SCH (08:46)
[2018-09-02] MEDS: LUBIPROSTONE 24 MCG CAP PO SCH ×2 (08:46→20:24)
[2018-09-02] MEDS: DOCUSATE SODIUM 250 MG CAP PO SCH ×2 (08:46→20:24)
--- NOTE | 2018-09-02 08:46 | CONS ---
Assessment/Plan Assessment/Plan Hospital Course (Demo Recall) 73 yo male with h/o severe coronary artery disease, s/p multi vessel CABG, is referred to GI to evaluate for abnormal LFTs 1. Pancreatitis, likely biliary -resolved 2. Transaminitis -elevated alk, alt, ast -monitor qd -limit hepatatoxic medications -pt may be passing gravuler stones, lfts are coming down again 3. Severe coronary artery disease, S/P multi vessel CABG recently - pr cardiology team 4. Diabetes mellitus -per primary team 5. Renal failure -per nephrology team 6. Iron deficiency anemia -monitor HH and for acute GI bleeding, pt is on eliquis and plavix 7. Obesity 8. HTN 9. DM2 10. Fatty liver 11. Hepatosplenomegaly US of liver: 1. Sludge is noted within the gallbladder. There is no gallbladder wall thickening or pericholecystic fluid to suggest acute cholecystitis. 2. No biliary duct dilatation. 3. Fatty change of the liver. 4. Hepatosplenomegaly. 5. Slightly increased bilateral renal cortical echogenicity suggest medical renal disease. 6. Questionable 1.4 cm echogenic cortical lesion in the right kidney without corresponding abnormality seen on the previous CT scan. This is likely artifactual CT of abd 09/01: 1. No evidence of pancreatitis. 2. Status post interval median sternotomy. 3. Small pericardial effusion. New since prior exam. 4. Left greater than right bilateral small pleural effusions with bibasilar compressive atelectasis. New since prior exam. 5. High-density sludge in the gallbladder. 6. Calcific atherosclerosis of the aorta and coronary arteries. Plan: Low fat diet Cardiology to evaluate new small pleural effusion seen on CT scan 09/01 Pt likely passed small stone Monitor LFTs, lipase and amylase Monitor HH and for GI bleeding Amitiza 24 mcg bid and miralax qd Pt examined and plan of care discussed with Dr. Bill Consultation Date/Type/Reason Admit Date/Time August 21, 2018 at 18:31 Initial Consult Date Requesting Provider: NERIS BROTHERS MD Date/Time of Note DATE: 09/02/18 TIME: 08:42 24 HR Interval Summary Free Text/Dictation Pt has no c/o abd pain. NO nausea. Tolerating diet. Exam/Review of Systems Exam Vitals Vital Signs Date Temp Pulse Resp B/P (MAP) Pulse Ox O2 O2 Flow FiO2 Time Delivery Rate 09/02/18 85 18 96 Nasal 2.0 07:54 Cannula 09/02/18 98.1 118/56 07:43 (76) 08/29/18 28 13:53 Intake and Output 09/01/18 09/01/18 09/02/18 1515:00 23:00 07:00 IntakeIntake Total 240 ml 320 ml 400 ml OutputOutput Total 550 ml 1525 ml 500 ml BalanceBalance -310 ml -1205 ml -100 ml Constitutional: alert, oriented Psych: no complaints Head: normocephalic Eyes: PERRL Gastrointestinal: soft, non-tender, bowel sounds 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: nl mental status Results Result Diagram: 09/02/18 0556 09/02/18 0556 Results 24hrs Laboratory Tests Test 09/01/18 13:38 09/01/18 14:47 09/01/18 18:22 09/01/18 20:10 Bedside Glucose 136 136 123 168 Test 09/02/18 05:56 09/02/18 07:47 White Blood Count 4.7 #L Red Blood Count 2.98 L Hemoglobin 8.4 L Hematocrit 26.9 L Mean Corpuscular 90.3 Volume Mean Corpuscular 28.2 L Hemoglobin Mean Corpuscular 31.2 L Hemoglobin Concent Red Cell 14.7 H Distribution Width Platelet Count 194 Mean Platelet Volume 10.9 H Immature 0.400 Granulocytes % Neutrophils % 62.8 Lymphocytes % 20.6 Monocytes % 12.0 H Eosinophils % 3.6 Basophils % 0.6 Nucleated Red Blood 0.0 Cells % Immature 0.020 Granulocytes # Neutrophils # 2.9 Lymphocytes # 1.0 Monocytes # 0.6 Eosinophils # 0.2 Basophils # 0.0 Nucleated Red Blood 0.0 Cells # Sodium Level 136 Potassium Level 3.9 Chloride Level 98 Carbon Dioxide Level 31 Anion Gap 7 Blood Urea Nitrogen 30 H Creatinine 1.53 H Est Glomerular Filtrat Rate mL/min Glucose Level 139 Calcium Level 8.4 Total Bilirubin 0.6 Direct Bilirubin 0.00 Indirect Bilirubin 0.6 Aspartate Amino 122 #H Transf (AST/SGOT) Alanine 157 H Aminotransferase (AL T/SGPT) Alkaline Phosphatase 314 H Total Protein 6.0 L Albumin 3.1 L Globulin 2.90 Albumin/Globulin 1.06 Ratio Amylase Level 75 Lipase 270 Bedside Glucose 147 Medications Medication Current Medications Ondansetron HCl (Zofran Inj) 4 mg Q6H PRN IV NAUSEA AND/OR VOMITING; Start 08/21/18 at 21:08 Clopidogrel Bisulfate (plaVIX) 75 mg DAILY NGT Last administered on 09/01/18at 0 9:02; Admin Dose 75 MG; Start 08/21/18 at 21:08 Levalbuterol (Xopenex Neb) 1.25 mg Q6H RESP THERAPY HHN Last administered on 09/02/18at 07:54; Admin Dose 1.25 MG; Start 08/21/18 at 21:08 Ipratropium [place] (Atrovent 0.02% (Neb)) 0.5 mg Q6H RESP THERAPY HHN Last administered on 09/02/18at 07:54; Admin Dose 0.5 MG; Start 08/21/18 at 21:08 Diagnostic Test (Pha) (Accu-Chek) 1 ea 02 XX Last administered on 08/28/18at 02:30; Admin Dose 1 EA; Start 08/21/18 at 21:08 Miscellaneous Information 1 ea NOTE XX ; Start 08/21/18 at 21:08 Glucose (Glutose) 15 gm Q15M PRN PO DECREASED GLUCOSE; Start 08/21/18 at 21:08 Glucose (Glutose) 22.5 gm Q15M PRN PO DECREASED GLUCOSE; Start 08/21/18 at 21:08 Dextrose (D50w Syringe) 25 ml Q15M PRN IV DECREASED GLUCOSE; Start 08/21/18 at 21:08 Dextrose (D50w Syringe) 50 ml Q15M PRN IV DECREASED GLUCOSE; Start 08/21/18 at 21:08 Glucagon (Glucagen) 1 mg Q15M PRN IM DECREASED GLUCOSE; Start 08/21/18 at 21:08 Glucose (Glutose) 15 gm Q15M PRN BUCCAL DECREASED GLUCOSE; Start 08/21/18 at 21:08 Famotidine (Pepcid) 20 mg DAILY PO Last administered on 09/01/18at 09:02; Admin Dose 20 MG; Start 08/21/18 at 21:08 Insulin Aspart (Novolog Insulin Pen) 10 unit WITH MEALS SC Last administered on 09/02/18at 08:00; Admin Dose 10 UNIT; Start 08/21/18 at 21:08 Insulin Aspart (Novolog Insulin Pen) NOVOLOG *MODERATE* ALGORITHM WITH MEALS BEDTIME SC Last administered on 09/02/18 08:03; Admin Dose 2 UNIT; Start 08/21/18 at 21:08 Oxycodone/ Acetaminophen (Endocet (10/ 325)) 1 tab Q4H PRN PO MODERATE PAIN LEVEL 4-6 Last administered on 08/31/18 14:29; Admin Dose 1 TAB; Start 08/21/18 at 21:08 Hydralazine HCl (Apresoline) 10 mg Q4H PRN IV SBP >150; Start 08/21/18 at 21:30 Acetaminophen (Tylenol Tab) 650 mg Q3H PRN PO ELEVATED TEMPERATURE Last administered on 08/26/18 15:46; Admin Dose 650 MG; Start 08/21/18 at 22:00 Ascorbic Acid (Vitamin C) 500 mg TID NGT Last administered on 09/01/18 20:35; Admin Dose 500 MG; Start 08/21/18 at 21:49 Carvedilol (Coreg) 12.5 mg BID PO Last administered on 09/01/18 20:36; Admin Dose 12.5 MG; Start 08/21/18 at 21:51 Docusate Sodium (Colace) 250 mg BID PO Last administered on 09/01/18 20:35; Admin Dose 250 MG; Start 08/21/18 at 21:51 Amlodipine Besylate (Norvasc) 5 mg DAILY PO Last administered on 09/01/18 09:02; Admin Dose 5 MG; Start 08/22/18 at 09:00 Magnesium Hydroxide (Milk Of Mag) 30 ml BID PRN PO CONSTIPATION Last administer ed on 09/01/18 14:48; Admin Dose 30 ML; Start 08/22/18 at 11:00 Lactulose (Enulose) 20 gm DAILY PRN PO CONSTIPATION Last administered on 08/22/18 12:44; Admin Dose 20 GM; Start 08/22/18 at 11:00 Bisacodyl (Dulcolax Supp) 10 mg DAILY PRN [place] CONSTIPATION; Start 08/22/18 at 11:00 Morphine Sulfate (morphine) 1 mg Q6H PRN IV SEVERE PAIN LEVEL 7-10; Start 08/23/18 at 07:00 Nitroglycerin (Nitroglycerin (Sl Tab) 0.4 Mg) 1 tab Q5M PRN SL ANGINA; Start 08/24/18 at 11:30 Gabapentin (Neurontin) 100 mg TID PO Last administered on 09/01/18 20:35; Admin Dose 100 MG; Start 08/25/18 at 13:00 Polyethylene Glycol (Miralax) 17 gm TID PRN PO CONSTIPATION; Start 08/25/18 at 12:00 Insulin Glargine (Lantus) 28 units 2100 SC Last administered on 09/01/18 20:34; Admin Dose 28 UNITS; Start 08/26/18 at 21:00 Hydromorphone HCl (Dilaudid) 1 mg Q3 PRN IV SEVERE PAIN LEVEL 7-10 Last administered on 09/02/18 07:49; Admin Dose 1 MG; Start 08/27/18 at 13:00 Apixaban (Eliquis) 5 mg BID PO Last administered on 09/01/18 20:35; Admin Dose 5 MG; Start 08/29/18 at 11:00 Polysaccharide Iron Complex (Niferex-150) 1 cap BID PO Last administered on 09/01/18 20:35; Admin Dose 1 CAP; Start 09/01/18 at 09:00 Lubiprostone (Amitiza) 24 mcg BID PO Last administered on 09/01/18 20:34; Admin Dose 24 MCG; Start 09/01/18 at 21:00 Polyethylene Glycol (Miralax) 17 gm DAILY GTB ; Start 09/02/18 at 09:00 Bumetanide (Bumex) 1 mg DAILY PO Last administered on 09/01/18 13:40; Admin Dose 1 MG; Start 09/01/18 at 12:00 BRIAN REDDY September 02, 2018 08:45
[2018-09-02] MEDS: POLYETHYLENE GLYCOL 17 GM PACKET GTB SCH (09:00)
--- NOTE | 2018-09-02 09:22 | PN ---
Date/Time of Note Date/Time of Note DATE: 09/02/18 TIME: 09:21 Assessment/Plan VTE Prophylaxis Risk score (from Ns)>0 risk: 6 SCD applied (from Ns): No SCD contraindicated: other (on.) Pharmacological prophylaxis: LMWH Lines/Catheters IV Catheter Type (from [email or web address] [place] [employer] line still needed: No Urinary Cath still in place: No Reason Cath still needed: urinary retention Assessment/Plan Assessment/Plan 1. Ischemic heart disease angina three-vessel coronary a. disease.s/p CABG x5 08/13/18: WINN to LAD, SVG to ramus sequence to obtuse marginal artery, SVG to PDA, SVG to left ventricular extension branch. Difficult case per Dr. Howell with poor targets.Vein harvesting and epiaortic scanning of the ascending aorta.CAD: s/p multiple prior PCIs. Cath 08/11/18 with multivessel disease. Now with elevated level of the troponin the second 1 is 1.1. We will get q. 6 hours x 2. The patient denies having the chest pain. 2. Hypertension with congestive heart failure diastolic- improved. 3. Diabetes mellitus type 2 blood sugar better controlled. Continue titration. 4. History of cholecystitis and pancreatitis. Elevation of liver function t ests almost 10 to the normal continue follow-up will discuss Dr. Bill. 5. Acute on chronic kidney disease with baseline creatinine being 1.6 up to 3.5 came down to 2.05 yesterday and 1.95 today. Improved after hydration,now mildly dehydrated; 6. Dyslipidemia better controlled 7. History of nasal bleeding recurrent- stable. 8. Morbid obesity with snoring and apnea and daytime sleepiness 9. BPH with nocturia 10. Low back pain with radiculopathy 11. 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 Status post cataract ectomy 13. Diabetic nephropathy retinopathy and angiopathy and neuropathy. 14. Constipation- improved. 15. Grief reaction after the of her 16. Gastroesophageal reflux disease 17. Deep venous thrombosis of the left saphenous vein, 2-3 months ago;was on Eliquis 5 mg twice daily, stopped: since 08/11/2018. 18. Gastritis 19. COPD. Quit smoking 10years ago. 02sat now 95% with persistent cough. 20. History of nephrolithiasis. 21. Drop of hematocrit; s/p 2 units of prbc tx. today level is 25. 22. Drop of albumone and total protein and mild elevation of lft's. 21. Drop of hematocrit; s/p 2 units of prbc tx. further decline today; hematocrit being the 25 recheck tomorrow. 22. Drop of albumone and total protein and mild elevation of lft's. 23.Myopathy 24.insomnia 25.Acute on chronic kidney disease, improving 26. Pancreatitis with pain. Increase of the function tests yesterday today decreased. No elevation of amylase lipase. Most probably the patient already passed another stone. 27.Unstable gate. Result Diagram: 09/02/18 0556 09/02/18 0556 Results 24hrs Laboratory Tests Test 09/01/18 13:38 09/01/18 14:47 09/01/18 18:22 09/01/18 20:10 Bedside Glucose 136 136 123 168 Test 09/02/18 05:56 09/02/18 07:47 White Blood Count 4.7 #L Red Blood Count 2.98 L Hemoglobin 8.4 L Hematocrit 26.9 L Mean Corpuscular 90.3 Volume Mean Corpuscular 28.2 L Hemoglobin Mean Corpuscular 31.2 L Hemoglobin Concent Red Cell 14.7 H Distribution Width Platelet Count 194 Mean Platelet Volume 10.9 H Immature 0.400 Granulocytes % Neutrophils % 62.8 Lymphocytes % 20.6 Monocytes % 12.0 H Eosinophils % 3.6 Basophils % 0.6 Nucleated Red Blood 0.0 Cells % Immature 0.020 Granulocytes # Neutrophils # 2.9 Lymphocytes # 1.0 Monocytes # 0.6 Eosinophils # 0.2 Basophils # 0.0 Nucleated Red Blood 0.0 Cells # Sodium Level 136 Potassium Level 3.9 Chloride Level 98 Carbon Dioxide Level 31 Anion Gap 7 Blood Urea Nitrogen 30 H Creatinine 1.53 H Est Glomerular Filtrat Rate mL/min Glucose Level 139 Calcium Level 8.4 Total Bilirubin 0.6 Direct Bilirubin 0.00 Indirect Bilirubin 0.6 Aspartate Amino 122 #H Transf (AST/SGOT) Alanine 157 H Aminotransferase (AL T/SGPT) Alkaline Phosphatase 314 H Total Protein 6.0 L Albumin 3.1 L Globulin 2.90 Albumin/Globulin 1.06 Ratio Amylase Level 75 Lipase 270 Bedside Glucose 147 Subjective 24 Hr Interval Summary Free Text/Dictation Epigastric pain with nausea. No vomiting. I cannot eat. Given the smell of food makes me nauseous. The patient refused initially attempt of the nurses to go to the PTOT. Discussed agreed we will make an effort. Main reason of not getting copies of worsening of her chest pain and epigastric pain with shortness of breath. Constitutional: chills, poor po, requiring O2; No no complaints, No improved, No diaphoresis, No disoriented, No febrile, No requiring IVF, No other Eyes: No no complaints, No pain, No discharge, No redness, No visual change, No other ENT: congestion; No no complaints, No bleeding, No pain, No discharge, No dysphagia, No sore throat, No other Respiratory: cough, shortness of breath; No no complaints, No pain, No pleuritic pain, No sputum, No wheezing, No o ther Cardiovascular: chest pain, edema, orthopenea, palpitations; No no complaints, No lightheadedness, No paroxysmal nocturnal dyspnea, No other Gastrointestinal: constipation, flatus, nausea, passing stool; No no complaints, No pain, No blood, No decreased appetite, No diarrhea, No vomiting, No other Genitourinary: dysuria; No no complaints, No bleeding, No discharge, No flank pain, No hematuria, No other Musculoskeletal: back pain, bone/joint pain; No no complaints, No neck pain, No restricted range of motion, No swelling, No other Skin: pruritis; No no complaints, No bruising, No erythema, No laceration, No rash, No skin lesions, No other Neurologic: dizziness; No no complaints, No confusion, No focal-weakness, No headache, No syncope, No seizure, No other Endocrine: dry skin; No no complaints, No polyuria, No polydypsia, No temp intolerance, No other Psychological: anxiety; No no complaints, No nl mood/affect, No confusion, No depression, No suicidal, No other Exam/Review of Systems Exam Vitals Vital Signs Date Temp Pulse Resp B/P (MAP) Pulse Ox O2 O2 Flow FiO2 Time Delivery Rate 09/02/18 85 18 96 Nasal 2.0 07:54 Cannula 09/02/18 98.1 118/56 07:43 (76) 08/29/18 28 13:53 Intake and Output 09/01/18 09/01/18 09/02/18 1515:00 23:00 07:00 IntakeIntake Total 240 ml 320 ml 400 ml OutputOutput Total 550 ml 1525 ml 500 ml BalanceBalance -310 ml -1205 ml -100 ml Constitutional: alert, oriented, well developed Psych: anxiety; No no complaints, No nl mood/affect, No confusion, No depression, No suicidal, No other Head: normocephalic, atraumatic; No lacerations, No hematomas, No other Eyes: EOMI, nl lids, PERRL, icteric; No nl conjunctiva, No nl sclera, No fundi, disc, No other ENMT: nl lips & teeth, nl nasal mucosa & septum, tympanic membranes; No nl external ears & nose, No mucosa pink and moist, No intubated, No other Neck: No supple, No non-tender, No jvd, No bruits, No masses, No thyromegaly, No nuchal rigidity, No other Respiratory: clear to auscultation, normal air movement, crackles/rales, dimin ished breath sounds; No congested cough, No intercostal retraction, No labored breathing, No respi rations, No tactile fremitus, No wheezing, No other Cardiovascular: nl pulses, bruits, edema (Right lower extremity with the pain in the lower leg area medially with no erythema but very tender in the medial aspect of the right ankle.); No regular rate and rhythm, No diastolic murmur, No gallop, No irregular rhythm, No jugular venous distention (JVD), No murmurs/extra sounds, No rub, No systolic murmur, No S3, No S4, No other Gastrointestinal: soft, nl liver, spleen, bowel sounds, distended, firm, rebound or guarding; No non-tender, No ascites, No hepatomegaly, No mass, No splenomegaly, No surgical scars, No tender, No other Genitourinary - Male: nl penis, nl scrotum; No CVA tenderness, No discharge, No other Musculoskeletal: No nl extremities to inspection, No nl gait and stance, No joint tenderness, No muscle tone, No muscle weakness, No range of motion, No spine non-tender, No swelling, No other Extremities: normal pulses, cyanosis, edema; No calf tenderness, No clubbing, No pitting pedal edema, No palpable cord, No tenderness, No other 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: [employer] II-XII intact, numbness; No nl mental status, No nl speech, No nl strength, No confused, No DTR's symmetric, No focal weakness, No lethargic, No reflexes, No unresponsive, No other Skin: nl turgor; No rash or lesions, No diaphoresis, No ecchymosis, No laceration, No puncture, No other Lymph: No nl lymph nodes, No enlarged, No nontender, No other Results Results 24hrs Laboratory Tests Test 09/01/18 13:38 09/01/18 14:47 09/01/18 18:22 09/01/18 20:10 Bedside Glucose 136 136 123 168 Test 09/02/18 05:56 09/02/18 07:47 White Blood Count 4.7 #L Red Blood Count 2.98 L Hemoglobin 8.4 L Hematocrit 26.9 L Mean Corpuscular 90.3 Volume Mean Corpuscular 28.2 L Hemoglobin Mean Corpuscular 31.2 L Hemoglobin Concent Red Cell 14.7 H Distribution Width Platelet Count 194 Mean Platelet Volume 10.9 H Immature 0.400 Granulocytes % Neutrophils % 62.8 Lymphocytes % 20.6 Monocytes % 12.0 H Eosinophils % 3.6 Basophils % 0.6 Nucleated Red Blood 0.0 Cells % Immature 0.020 Granulocytes # Neutrophils # 2.9 Lymphocytes # 1.0 Monocytes # 0.6 Eosinophils # 0.2 Basophils # 0.0 Nucleated Red Blood 0.0 Cells # Sodium Level 136 Potassium Level 3.9 Chloride Level 98 Carbon Dioxide Level 31 Anion Gap 7 Blood Urea Nitrogen 30 H Creatinine 1.53 H Est Glomerular Filtrat Rate mL/min Glucose Level 139 Calcium Level 8.4 Total Bilirubin 0.6 Direct Bilirubin 0.00 Indirect Bilirubin 0.6 Aspartate Amino 122 #H Transf (AST/SGOT) Alanine 157 H Aminotransferase (AL T/SGPT) Alkaline Phosphatase 314 H Total Protein 6.0 L Albumin 3.1 L Globulin 2.90 Albumin/Globulin 1.06 Ratio Amylase Level 75 Lipase 270 Bedside Glucose 147 Medications Medication Current Medications Ondansetron HCl (Zofran Inj) 4 mg Q6H PRN IV NAUSEA AND/OR VOMITING; Start 08/21/18 at 21:08 Clopidogrel Bisulfate (plaVIX) 75 mg DAILY NGT Last administered on 09/01/18at 09:02; Admin Dose 75 MG; Start 08/21/18 at 21:08 Levalbuterol (Xopenex Neb) 1.25 mg Q6H RESP THERAPY HHN Last administered on 09/02/18 07:54; Admin Dose 1.25 MG; Start 08/21/18 at 21:08 Ipratropium [place] (Atrovent 0.02% (Neb)) 0.5 mg Q6H RESP THERAPY HHN Last administered on 09/02/18 07:54; Admin Dose 0.5 MG; Start 08/21/18 at 21:08 Diagnostic Test (Pha) (Accu-Chek) 1 ea 02 XX Last administered on 08/28/18 02:30; Admin Dose 1 EA; Start 08/21/18 at 21:08 Miscellaneous Information 1 ea NOTE XX ; Start 08/21/18 at 21:08 Glucose (Glutose) 15 gm Q15M PRN PO DECREASED GLUCOSE; Start 08/21/18 at 21:08 Glucose (Glutose) 22.5 gm Q15M PRN PO DECREASED GLUCOSE; Start 08/21/18 at 21:08 Dextrose (D50w Syringe) 25 ml Q15M PRN IV DECREASED GLUCOSE; Start 08/21/18 at 21:08 Dextrose (D50w Syringe) 50 ml Q15M PRN IV DECREASED GLUCOSE; Start 08/21/18 at 21:08 Glucagon (Glucagen) 1 mg Q15M PRN IM DECREASED GLUCOSE; Start 08/21/18 at 21:08 Glucose (Glutose) 15 gm Q15M PRN BUCCAL DECREASED GLUCOSE; Start 08/21/18 at 21:08 Famotidine (Pepcid) 20 mg DAILY PO Last administered on 09/01/18at 09:02; Admin Dose 20 MG; Start 08/21/18 at 21:08 Insulin Aspart (Novolog Insulin Pen) 10 unit WITH MEALS SC Last administered on 09/02/18 08:00; Admin Dose 10 UNIT; Start 08/21/18 at 21:08 Insulin Aspart (Novolog Insulin Pen) NOVOLOG *MODERATE* ALGORITHM WITH MEALS BEDTIME SC Last administered on 09/02/18 08:03; Admin Dose 2 UNIT; Start 08/21/18 at 21:08 Oxycodone/ Acetaminophen (Endocet (10/ 325)) 1 tab Q4H PRN PO MODERATE PAIN LEVEL 4-6 Last administered on 08/31/18 14:29; Admin Dose 1 TAB; Start 08/21/18 at 21:08 Hydralazine HCl (Apresoline) 10 mg Q4H PRN IV SBP >150; Start 08/21/18 at 21:30 Acetaminophen (Tylenol Tab) 650 mg Q3H PRN PO ELEVATED TEMPERATURE Last adminis tered on 08/26/18 15:46; Admin Dose 650 MG; Start 08/21/18 at 22:00 Ascorbic Acid (Vitamin C) 500 mg TID NGT Last administered on 09/02/18 08:46; Admin Dose 500 MG; Start 08/21/18 at 21:49 Carvedilol (Coreg) 12.5 mg BID PO Last administered on 09/02/18 08:47; Admin Dose 12.5 MG; Start 08/21/18 at 21:51 Docusate Sodium (Colace) 250 mg BID PO Last administered on 09/02/18 08:46; Admin Dose 250 MG; Start 08/21/18 at 21:51 Amlodipine Besylate (Norvasc) 5 mg DAILY PO Last administered on 09/01/18 09:02; Admin Dose 5 MG; Start 08/22/18 at 09:00 Magnesium Hydroxide (Milk Of Mag) 30 ml BID PRN PO CONSTIPATION Last administered on 09/01/18 14:48; Admin Dose 30 ML; Start 08/22/18 at 11:00 Lactulose (Enulose) 20 gm DAILY PRN PO CONSTIPATION Last administered on 08/22/18 12:44; Admin Dose 20 GM; Start 08/22/18 at 11:00 Bisacodyl (Dulcolax Supp) 10 mg DAILY PRN AR CONSTIPATION; Start 08/22/18 at 11:00 Morphine Sulfate (morphine) 1 mg Q6H PRN IV SEVERE PAIN LEVEL 7-10; Start 08/23/18 at 07:00 Nitroglycerin (Nitroglycerin (Sl Tab) 0.4 Mg) 1 tab Q5M PRN SL ANGINA; Start 08/24/18 at 11:30 Gabapentin (Neurontin) 100 mg TID PO Last administered on 09/01/18 20:35; Admin Dose 100 MG; Start 08/25/18 at 13:00 Polyethylene Glycol (Miralax) 17 gm TID PRN PO CONSTIPATION; Start 08/25/18 at 12:00 Insulin Glargine (Lantus) 28 units 2100 SC Last administered on 09/01/18 20:34; Admin Dose 28 UNITS; Start 08/26/18 at 21:00 Hydromorphone HCl (Dilaudid) 1 mg Q3 PRN IV SEVERE PAIN LEVEL 7-10 Last admin istered on 09/02/18 07:49; Admin Dose 1 MG; Start 08/27/18 at 13:00 Apixaban (Eliquis) 5 mg BID PO Last administered on 09/01/18 20:35; Admin Dose 5 MG; Start 08/29/18 at 11:00 Polysaccharide Iron Complex (Niferex-150) 1 cap BID PO Last administered on 09/02/18 08:45; Admin Dose 1 CAP; Start 09/01/18 at 09:00 Lubiprostone (Amitiza) 24 mcg BID PO Last administered on 09/02/18 08:46; Admin Dose 24 MCG; Start 09/01/18 at 21:00 Polyethylene Glycol (Miralax) 17 gm DAILY GTB ; Start 09/02/18 at 09:00 Bumetanide (Bumex) 1 mg DAILY PO Last administered on 09/02/18 08:46; Admin Dose 1 MG; Start 09/01/18 at 12:00 NERIS BROTHERS MD September 02, 2018 09:22
[2018-09-02] MEDS: CLOPIDOGREL 75 MG TAB NGT SCH (10:40)
[2018-09-02] MEDS: AMLODIPINE 5 MG TAB PO SCH (10:41)
[2018-09-02] MEDS: FAMOTIDINE 20 MG TAB PO SCH (10:41)
[2018-09-02] MEDS: GABAPENTIN 100 MG CAP PO SCH ×3 (10:41→20:25)
[2018-09-02] MEDS: APIXABAN 5 MG TABLET PO SCH ×2 (10:41→20:25)
[2018-09-02 14:00] VITALS: BP 130/70; PULSE 78; RESP 18
--- NOTE | 2018-09-02 14:10 | PN ---
Date/Time of Note Date/Time of Note DATE: 09/02/18 TIME: 14:10 Subjective Overall improving Objective Vital Signs Date Temp Pulse Resp B/P (MAP) Pulse Ox O2 O2 Flow FiO2 Time Delivery Rate 09/02/18 Nasal 2.0 08:00 Cannula 09/02/18 85 18 96 07:54 09/02/18 98.1 118/56 07:43 (76) 08/29/18 28 13:53 Intake and Output 09/01/18 09/01/18 09/02/18 1515:00 23:00 07:00 IntakeIntake Total 240 ml 320 ml 400 ml OutputOutput Total 550 ml 1525 ml 500 ml BalanceBalance -310 ml -1205 ml -100 ml Exam pulm-cta abd-soft min ambulation 40 feet Results/Medications Result Diagram: 09/02/18 0556 09/02/18 0556 Results 24 hrs Laboratory Tests Test 09/01/18 14:47 09/01/18 18:22 09/01/18 20:10 09/02/18 05:56 Bedside Glucose 136 123 168 White Blood Count 4.7 #L Red Blood Count 2.98 L Hemoglobin 8.4 L Hematocrit 26.9 L Mean Corpuscular 90.3 Volume Mean Corpuscular 28.2 L Hemoglobin Mean Corpuscular 31.2 L Hemoglobin Concent Red Cell 14.7 H Distribution Width Platelet Count 194 Mean Platelet Volume 10.9 H Immature 0.400 Granulocytes % Neutrophils % 62.8 Lymphocytes % 20.6 Monocytes % 12.0 H Eosinophils % 3.6 Basophils % 0.6 Nucleated Red Blood 0.0 Cells % Immature 0.020 Granulocytes # Neutrophils # 2.9 Lymphocytes # 1.0 Monocytes # 0.6 Eosinophils # 0.2 Basophils # 0.0 Nucleated Red Blood 0.0 Cells # Sodium Level 136 Potassium Level 3.9 Chloride Level 98 Carbon Dioxide Level 31 Anion Gap 7 Blood Urea Nitrogen 30 H Creatinine 1.53 H Est Glomerular Filtrat Rate mL/min Glucose Level 139 Calcium Level 8.4 Total Bilirubin 0.6 Direct Bilirubin 0.00 Indirect Bilirubin 0.6 Aspartate Amino 122 #H Transf (AST/SGOT) Alanine 157 H Aminotransferase (AL T/SGPT) Alkaline Phosphatase 314 H Total Protein 6.0 L Albumin 3.1 L Globulin 2.90 Albumin/Globulin 1.06 Ratio Amylase Level 75 Lipase 270 Test 09/02/18 07:47 09/02/18 11:52 Bedside Glucose 147 184 Medications Current Medications Ondansetron HCl (Zofran Inj) 4 mg Q6H PRN IV NAUSEA AND/OR VOMITING; Start 08/21/18 at 21:08 Clopidogrel Bisulfate (plaVIX) 75 mg DAILY NGT Last administered on 09/02/18at 10:40; Admin Dose 75 MG; Start 08/21/18 at 21:08 Levalbuterol (Xopenex Neb) 1.25 mg Q6H RESP THERAPY HHN Last administered on 09/02/18 07:54; Admin Dose 1.25 MG; Start 08/21/18 at 21:08 Ipratropium [place] (Atrovent 0.02% (Neb)) 0.5 mg Q6H RESP THERAPY HHN Last administered on 09/02/18 07:54; Admin Dose 0.5 MG; Start 08/21/18 at 21:08 Diagnostic Test (Pha) (Accu-Chek) 1 ea 02 XX Last administered on 08/28/18at 02:30; Admin Dose 1 EA; Start 08/21/18 at 21:08 Miscellaneous Information 1 ea NOTE XX ; Start 08/21/18 at 21:08 Glucose (Glutose) 15 gm Q15M PRN PO DECREASED GLUCOSE; Start 08/21/18 at 21:08 Glucose (Glutose) 22.5 gm Q15M PRN PO DECREASED GLUCOSE; Start 08/21/18 at 21:08 Dextrose (D50w Syringe) 25 ml Q15M PRN IV DECREASED GLUCOSE; Start 08/21/18 at 21:08 Dextrose (D50w Syringe) 50 ml Q15M PRN IV DECREASED GLUCOSE; Start 08/21/18 at 21:08 Glucagon (Glucagen) 1 mg Q15M PRN IM DECREASED GLUCOSE; Start 08/21/18 at 21:08 Glucose (Glutose) 15 gm Q15M PRN BUCCAL DECREASED GLUCOSE; Start 08/21/18 at 21:08 Famotidine (Pepcid) 20 mg DAILY PO Last administered on 09/02/18at 10:41; Admin Dose 20 MG; Start 08/21/18 at 21:08 Insulin Aspart (Novolog Insulin Pen) 10 unit WITH MEALS SC Last administered on 09/02/18 12:28; Admin Dose 10 UNIT; Start 08/21/18 at 21:08 Insulin Aspart (Novolog Insulin Pen) NOVOLOG *MODERATE* ALGORITHM WITH MEALS BEDTIME SC Last administered on 09/02/18 12:30; Admin Dose 4 UNIT; Start 08/21/18 at 21:08 Oxycodone/ Acetaminophen (Endocet (10/ 325)) 1 tab Q4H PRN PO MODERATE PAIN LEVEL 4-6 Last administered on 08/31/18 14:29; Admin Dose 1 TAB; Start 08/21/18 at 21:08 Hydralazine HCl (Apresoline) 10 mg Q4H PRN IV SBP >150; Start 08/21/18 at 21:30 Acetaminophen (Tylenol Tab) 650 mg Q3H PRN PO ELEVATED TEMPERATURE Last administered on 08/26/18 15:46; Admin Dose 650 MG; Start 08/21/18 at 22:00 Ascorbic Acid (Vitamin C) 500 mg TID NGT Last administered on 09/02/18 08:46; Admin Dose 500 MG; Start 08/21/18 at 21:49 Carvedilol (Coreg) 12.5 mg BID PO Last administered on 09/02/18 08:47; Admin Dose 12.5 MG; Start 08/21/18 at 21:51 Docusate Sodium (Colace) 250 mg BID PO Last administered on 09/02/18 08:46; Admin Dose 250 MG; Start 08/21/18 at 21:51 Amlodipine Besylate (Norvasc) 5 mg DAILY PO Last administered on 09/02/18 10:41; Admin Dose 5 MG; Start 08/22/18 at 09:00 Magnesium Hydroxide (Milk Of Mag) 30 ml BID PRN PO CONSTIPATION Last administered on 09/01/18 14:48; Admin Dose 30 ML; Start 08/22/18 at 11:00 Lactulose (Enulose) 20 gm DAILY PRN PO CONSTIPATION Last administered on 08/22/18 12:44; Admin Dose 20 GM; Start 08/22/18 at 11:00 Bisacodyl (Dulcolax Supp) 10 mg DAILY PRN [place] CONSTIPATION; Start 08/22/18 at 11:00 Morphine Sulfate (morphine) 1 mg Q6H PRN IV SEVERE PAIN LEVEL 7-10; Start 08/23/18 at 07:00 Nitroglycerin (Nitroglycerin (Sl Tab) 0.4 Mg) 1 tab Q5M PRN SL ANGINA; Start 08/24/18 at 11:30 Gabapentin (Neurontin) 100 mg TID PO Last administered on 09/02/18 10:41; Admin Dose 100 MG; Start 08/25/18 at 13:00 Polyethylene Glycol (Miralax) 17 gm TID PRN PO CONSTIPATION; Start 08/25/18 at 12:00 Insulin Glargine (Lantus) 28 units 2100 SC Last administered on 09/01/18 20:34; Admin Dose 28 UNITS; Start 08/26/18 at 21:00 Hydromorphone HCl (Dilaudid) 1 mg Q3 PRN IV SEVERE PAIN LEVEL 7-10 Last administered on 09/02/18 11:24; Admin Dose 1 MG; Start 08/27/18 at 13:00 Apixaban (Eliquis) 5 mg BID PO Last administered on 09/02/18 10:41; Admin Dose 5 MG; Start 08/29/18 at 11:00 Polysaccharide Iron Complex (Niferex-150) 1 cap BID PO Last administered on 09/02/18 08:45; Admin Dose 1 CAP; Start 09/01/18 at 09:00 Lubiprostone (Amitiza) 24 mcg BID PO Last administered on 09/02/18 08:46; Admin Dose 24 MCG; Start 09/01/18 at 21:00 Polyethylene Glycol (Miralax) 17 gm DAILY GTB ; Start 09/02/18 at 09:00 Bumetanide (Bumex) 1 mg DAILY PO Last administered on 09/02/18 08:46; Admin Dose 1 MG; Start 09/01/18 at 12:00 Assessment/Plan Additional Assessment/Plan rehab- Critical illness myopathy; Lumbar radiculopathy with right lower extremity symptoms. Continue rehab interdisciplinary program Coronary artery disease status post 5-vessel CABG. Status post acute respiratory failure. Acute on chronic kidney disease. Oropharyngeal dysphagia on mechanical soft diet-improved h.o. pancreatitis-f/b GI Chronic obstructive pulmonary disease. Diabetes mellitus type 2. Hypertension. Hyperlipidemia. Osteoarthritis affecting multiple joints, including bilateral knees. Diabetic retinopathy. Anemia of chronic disease. Benign prostatic hypertrophy. YARIEL MARIE MD September 02, 2018 14:10
--- NOTE | 2018-09-02 16:46 | CONS ---
Assessment/Plan Assessment/Plan Hospital Course (Demo Recall) Pancreatitis:had an episode few months ago and was hospitalized at [facility]. No gallstones at that time. Not a drinker, TG ok in the past. Possibly sludge/small stones. Resolved based on symptoms and lipase Transaminitis: due to above.Improved, then worse, now better again Acute on chronic diastolic CHF: Still volume up but improving NSTEMI: residual trop elevation likely from CABG. Trend does not suggest ACS. No symptoms. Ankle pain: XR without fracture. Improving Acute on chronic renal failure: Cr baseline 1.6. Worse after CABG.Now back to baseline Cardiogenic shock: Transient post op Acute respiratory failure: s/p extubation 08/16 Anemia: from operative blood loss. Required one unit. No active bleeding s/p CABG x5 08/13/18: WINN to LAD, SVG to ramus sequence to obtuse marginal artery, SVG to PDA, SVG to left ventricular extension branch. Difficult case per Dr. Howell with poor targets. CAD: s/p multiple prior PCIs. Cath 08/11/18 with multivessel disease. s/p CABG ab ove Recent left femoral DVT: on Eliquis as outpt. DM HT HL -bumex 1mg daily -hold lipitor 40mg, possibly restart tomorrow -Eliquis 5mg BID -continue plavix -coreg 12.5mg BID -amlodipine 5mg Consultation Date/Type/Reason Admit Date/Time August 21, 2018 at 18:31 Initial Consult Date Type of Consult Cardiology Requesting Provider: NERIS BROTHERS MD Date/Time of Note DATE: 09/02/18 TIME: 16:45 24 HR Interval Summary Free Text/Dictation No events. LFTs improving. No SOB. Still with ankle pain Exam/Review of Systems Vital Signs Vitals Vital Signs Date Temp Pulse Resp B/P (MAP) Pulse Ox O2 O2 Flow FiO2 Time Delivery Rate 09/02/18 88 20 98 Nasal 2.0 15:22 Cannula 09/02/18 98.1 118/56 07:43 (76) 08/29/18 28 13:53 Intake and Output 09/01/18 09/01/18 09/02/18 1414:59 22:59 06:59 IntakeIntake Total 240 ml 320 ml 400 ml OutputOutput Total 550 ml 1525 ml 500 ml BalanceBalance -310 ml -1205 ml -100 ml Exam Constitutional: alert, oriented Psych: no complaints, nl mood/affect Head: normocephalic, atraumatic Neck: No jvd Respiratory: crackles/rales (bases); No clear to auscultation Cardiovascular: regular rate and rhythm, edema (1+) Gastrointestinal: soft, non-tender; No distended 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: nl mental status, nl speech Labs Result Diagram: 09/02/18 0556 09/02/18 0556 Results 24hrs Laboratory Tests Test 09/01/18 18:22 09/01/18 20:10 09/02/18 05:56 09/02/18 07:47 Bedside Glucose 123 168 147 White Blood Count 4.7 #L Red Blood Count 2.98 L Hemoglobin 8.4 L Hematocrit 26.9 L Mean Corpuscular 90.3 Volume Mean Corpuscular 28.2 L Hemoglobin Mean Corpuscular 31.2 L Hemoglobin Concent Red Cell 14.7 H Distribution Width Platelet Count 194 Mean Platelet Volume 10.9 H Immature 0.400 Granulocytes % Neutrophils % 62.8 Lymphocytes % 20.6 Monocytes % 12.0 H Eosinophils % 3.6 Basophils % 0.6 Nucleated Red Blood 0.0 Cells % Immature 0.020 Granulocytes # Neutrophils # 2.9 Lymphocytes # 1.0 Monocytes # 0.6 Eosinophils # 0.2 Basophils # 0.0 Nucleated Red Blood 0.0 Cells # Sodium Level 136 Potassium Level 3.9 Chloride Level 98 Carbon Dioxide Level 31 Anion Gap 7 Blood Urea Nitrogen 30 H Creatinine 1.53 H Est Glomerular Filtrat Rate mL/min Glucose Level 139 Calcium Level 8.4 Total Bilirubin 0.6 Direct Bilirubin 0.00 Indirect Bilirubin 0.6 Aspartate Amino 122 #H Transf (AST/SGOT) Alanine 157 H Aminotransferase (AL T/SGPT) Alkaline Phosphatase 314 H Total Protein 6.0 L Albumin 3.1 L Globulin 2.90 Albumin/Globulin 1.06 Ratio Amylase Level 75 Lipase 270 Test 09/02/18 11:52 Bedside Glucose 184 Medications Medications Current Medications Ondansetron HCl (Zofran Inj) 4 mg Q6H PRN IV NAUSEA AND/OR VOMITING; Start 08/21/18 at 21:08 Clopidogrel Bisulfate (plaVIX) 75 mg DAILY NGT Last administered on 09/02/18at 10:40; Admin Dose 75 MG; Start 08/21/18 at 21:08 Levalbuterol (Xopenex Neb) 1.25 mg Q6H RESP THERAPY HHN Last administered on 09/02/18 15:22; Admin Dose 1.25 MG; Start 08/21/18 at 21:08 Ipratropium [place] (Atrovent 0.02% (Neb)) 0.5 mg Q6H RESP THERAPY HHN Last administered on 09/02/18 15:22; Admin Dose 0.5 MG; Start 08/21/18 at 21:08 Diagnostic Test (Pha) (Accu-Chek) 1 ea 02 XX Last administered on 08/28/18 02:30; Admin Dose 1 EA; Start 08/21/18 at 21:08 Miscellaneous Information 1 ea NOTE XX ; Start 08/21/18 at 21:08 Glucose (Glutose) 15 gm Q15M PRN PO DECREASED GLUCOSE; Start 08/21/18 at 21:08 Glucose (Glutose) 22.5 gm Q15M PRN PO DECREASED GLUCOSE; Start 08/21/18 at 21:08 Dextrose (D50w Syringe) 25 ml Q15M PRN IV DECREASED GLUCOSE; Start 08/21/18 at 21:08 Dextrose (D50w Syringe) 50 ml Q15M PRN IV DECREASED GLUCOSE; Start 08/21/18 at 21:08 Glucagon (Glucagen) 1 mg Q15M PRN IM DECREASED GLUCOSE; Start 08/21/18 at 21:08 Glucose (Glutose) 15 gm Q15M PRN BUCCAL DECREASED GLUCOSE; Start 08/21/18 at 21:08 Famotidine (Pepcid) 20 mg DAILY PO Last administered on 09/02/18at 10:41; Admin Dose 20 MG; Start 08/21/18 at 21:08 Insulin Aspart (Novolog Insulin Pen) 10 unit WITH MEALS SC Last administered on 09/02/18 12:28; Admin Dose 10 UNIT; Start 08/21/18 at 21:08 Insulin Aspart (Novolog Insulin Pen) NOVOLOG *MODERATE* ALGORITHM WITH MEALS BEDTIME SC Last administered on 09/02/18 12:30; Admin Dose 4 UNIT; Start 08/21/18 at 21:08 Oxycodone/ Acetaminophen (Endocet (10/ 325)) 1 tab Q4H PRN PO MODERATE PAIN LEVEL 4-6 Last administered on 08/31/18 14:29; Admin Dose 1 TAB; Start 08/21/18 at 21:08 Hydralazine HCl (Apresoline) 10 mg Q4H PRN IV SBP >150; Start 08/21/18 at 21:30 Acetaminophen (Tylenol Tab) 650 mg Q3H PRN PO ELEVATED TEMPERATURE Last administered on 08/26/18 15:46; Admin Dose 650 MG; Start 08/21/18 at 22:00 Ascorbic Acid (Vitamin C) 500 mg TID NGT Last administered on 09/02/18 15:03; Admin Dose 500 MG; Start 08/21/18 at 21:49 Carvedilol (Coreg) 12.5 mg BID PO Last administered on 09/02/18 08:47; Admin Dose 12.5 MG; Start 08/21/18 at 21:51 Docusate Sodium (Colace) 250 mg BID PO Last administered on 09/02/18 08:46; Admin Dose 250 MG; Start 08/21/18 at 21:51 Amlodipine Besylate (Norvasc) 5 mg DAILY PO Last administered on 09/02/18 10:41; Admin Dose 5 MG; Start 08/22/18 at 09:00 Magnesium Hydroxide (Milk Of Mag) 30 ml BID PRN PO CONSTIPATION Last admi nistered on 09/01/18 14:48; Admin Dose 30 ML; Start 08/22/18 at 11:00 Lactulose (Enulose) 20 gm DAILY PRN PO CONSTIPATION Last administered on 08/22/18 12:44; Admin Dose 20 GM; Start 08/22/18 at 11:00 Bisacodyl (Dulcolax Supp) 10 mg DAILY PRN [place] CONSTIPATION; Start 08/22/18 at 11:00 Morphine Sulfate (morphine) 1 mg Q6H PRN IV SEVERE PAIN LEVEL 7-10; Start 08/23/18 at 07:00 Nitroglycerin (Nitroglycerin (Sl Tab) 0.4 Mg) 1 tab Q5M PRN SL ANGINA; Start 08/24/18 at 11:30 Gabapentin (Neurontin) 100 mg TID PO Last administered on 09/02/18 15:05; Admin Dose 100 MG; Start 08/25/18 at 13:00 Polyethylene Glycol (Miralax) 17 gm TID PRN PO CONSTIPATION; Start 08/25/18 at 12:00 Insulin Glargine (Lantus) 28 units 2100 SC Last administered on 09/01/18 20:34; Admin Dose 28 UNITS; Start 08/26/18 at 21:00 Hydromorphone HCl (Dilaudid) 1 mg Q3 PRN IV SEVERE PAIN LEVEL 7-10 Last administered on 09/02/18 15:06; Admin Dose 1 MG; Start 08/27/18 at 13:00 Apixaban (Eliquis) 5 mg BID PO Last administered on 09/02/18 10:41; Admin Dose 5 MG; Start 08/29/18 at 11:00 Polysaccharide Iron Complex (Niferex-150) 1 cap BID PO Last administered on 09/02/18 08:45; Admin Dose 1 CAP; Start 09/01/18 at 09:00 Lubiprostone (Amitiza) 24 mcg BID PO Last administered on 09/02/18 08:46; Admin Dose 24 MCG; Start 09/01/18 at 21:00 Polyethylene Glycol (Miralax) 17 gm DAILY GTB ; Start 09/02/18 at 09:00 Bumetanide (Bumex) 1 mg DAILY PO Last administered on 09/02/18 08:46; Admin Dose 1 MG; Start 09/01/18 at 12:00 ALONDRA GILBERT September 02, 2018 16:46
[2018-09-02 20:00] VITALS: BP 139/60; PULSE 69; RESP 18
[2018-09-02] MEDS: INSULIN GLARGINE [LANTus] (100 UNITS/ML) SYG SC SCH (20:29)
--- NOTE | 2018-09-02 21:27 | CONS ---
Assessment/Plan Assessment/Plan Assessment/Plan (Daily) 1. acute kidney injury vs possible baseline CKD II due to ishcemic ATN + Hemodynamics 2. 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 H/o HTN 4. H/o HL 5. H/o DM II 6. H/o CAD with previous stent placement 7. Anemia of chronic disease with iron deficiency s/p 5 days of IV iron Plan: BUN/Cr 30/1.53, other electrolytes stable - On lasix 40mg po daily, will spot dose of lasix as needed amlodipine 5 mg po daily, Eliquis 5mg pO BID will follow up Consultation Date/Type/Reason Admit Date/Time August 21, 2018 at 18:31 Initial Consult Date Type of Consult NEPHROLOGY Requesting Provider: NERIS BROTHERS MD Date/Time of Note DATE: 09/02/18 TIME: 21:26 Exam/Review of Systems Exam Vitals Vital Signs Date Temp Pulse Resp B/P (MAP) Pulse Ox O2 O2 Flow FiO2 Time Delivery Rate 09/02/18 97 2.0 19:28 09/02/18 68 20 Nasal 19:28 Cannula 09/02/18 98.4 130/70 14:00 (90) 08/29/18 28 13:53 Intake and Output 09/01/18 09/01/18 09/02/18 1515:00 23:00 07:00 IntakeIntake Total 240 ml 320 ml 400 ml OutputOutput Total 550 ml 1525 ml 500 ml BalanceBalance -310 ml -1205 ml -100 ml Exam Constitutional: alert, awake, no acute distress Respiratory: clear to auscultation, normal air movement, diminished breath sounds Cardiovascular: regular rate and rhythm, nl pulses Gastrointestinal: soft, non-tender Musculoskeletal: nl extremities to inspection Extremities: normal pulses Results Result Diagram: 09/02/18 0556 09/02/18 0556 Results 24hrs Laboratory Tests Test 09/02/18 05:56 09/02/18 07:47 09/02/18 11:52 09/02/18 17:28 White Blood Count 4.7 #L Red Blood Count 2.98 L Hemoglobin 8.4 L Hematocrit 26.9 L Mean Corpuscular 90.3 Volume Mean Corpuscular 28.2 L Hemoglobin Mean Corpuscular 31.2 L Hemoglobin Concent Red Cell 14.7 H Distribution Width Platelet Count 194 Mean Platelet Volume 10.9 H Immature 0.400 Granulocytes % Neutrophils % 62.8 Lymphocytes % 20.6 Monocytes % 12.0 H Eosinophils % 3.6 Basophils % 0.6 Nucleated Red Blood 0.0 Cells % Immature 0.020 Granulocytes # Neutrophils # 2.9 Lymphocytes # 1.0 Monocytes # 0.6 Eosinophils # 0.2 Basophils # 0.0 Nucleated Red Blood 0.0 Cells # Sodium Level 136 Potassium Level 3.9 Chloride Level 98 Carbon Dioxide Level 31 Anion Gap 7 Blood Urea Nitrogen 30 H Creatinine 1.53 H Est Glomerular Filtrat Rate mL/min Glucose Level 139 Calcium Level 8.4 Total Bilirubin 0.6 Direct Bilirubin 0.00 Indirect Bilirubin 0.6 Aspartate Amino 122 #H Transf (AST/SGOT) Alanine 157 H Aminotransferase (AL T/SGPT) Alkaline Phosphatase 314 H Total Protein 6.0 L Albumin 3.1 L Globulin 2.90 Albumin/Globulin 1.06 Ratio Amylase Level 75 Lipase 270 Bedside Glucose 147 184 183 Test 09/02/18 20:20 Bedside Glucose 137 Medications Medication Current Medications Ondansetron HCl (Zofran Inj) 4 mg Q6H PRN IV NAUSEA AND/OR VOMITING; Start 08/21/18 at 21:08 Clopidogrel Bisulfate (plaVIX) 75 mg DAILY NGT Last administered on 09/02/18at 10:40; Admin Dose 75 MG; Start 08/21/18 at 21:08 Levalbuterol (Xopenex Neb) 1.25 mg Q6H RESP THERAPY HHN Last administered on 09/02/18at 19:28; Admin Dose 1.25 MG; Start 08/21/18 at 21:08 Ipratropium [place] (Atrovent 0.02% (Neb)) 0.5 mg Q6H RESP THERAPY HHN Last administered on 09/02/18at 19:27; Admin Dose 0.5 MG; Start 08/21/18 at 21:08 Diagnostic Test (Pha) (Accu-Chek) 1 ea 02 XX Last administered on 08/28/18at 02:30; Admin Dose 1 EA; Start 08/21/18 at 21:08 Miscellaneous Information 1 ea NOTE XX ; Start 08/21/18 at 21:08 Glucose (Glutose) 15 gm Q15M PRN PO DECREASED GLUCOSE; Start 08/21/18 at 21:08 Glucose (Glutose) 22.5 gm Q15M PRN PO DECREASED GLUCOSE; Start 08/21/18 at 21:08 Dextrose (D50w Syringe) 25 ml Q15M PRN IV DECREASED GLUCOSE; Start 08/21/18 at 21:08 Dextrose (D50w Syringe) 50 ml Q15M PRN IV DECREASED GLUCOSE; Start 08/21/18 at 21:08 Glucagon (Glucagen) 1 mg Q15M PRN IM DECREASED GLUCOSE; Start 08/21/18 at 21:08 Glucose (Glutose) 15 gm Q15M PRN BUCCAL DECREASED GLUCOSE; Start 08/21/18 at 21:08 Famotidine (Pepcid) 20 mg DAILY PO Last administered on 09/02/18 10:41; Admin Dose 20 MG; Start 08/21/18 at 21:08 Insulin Aspart (Novolog Insulin Pen) 10 unit WITH MEALS SC Last administered on 09/02/18 17:35; Admin Dose 10 UNIT; Start 08/21/18 at 21:08 Insulin Aspart (Novolog Insulin Pen) NOVOLOG *MODERATE* ALGORITHM WITH MEALS BEDTIME SC Last administered on 09/02/18 17:36; Admin Dose 4 UNIT; Start 08/21/18 at 21:08 Oxycodone/ Acetaminophen (Endocet (10/ 325)) 1 tab Q4H PRN PO MODERATE PAIN LEVEL 4-6 Last administered on 08/31/18 14:29; Admin Dose 1 TAB; Start 08/21/18 at 21:08 Hydralazine HCl (Apresoline) 10 mg Q4H PRN IV SBP >150; Start 08/21/18 at 21:30 Acetaminophen (Tylenol Tab) 650 mg Q3H PRN PO ELEVATED TEMPERATURE Last administered on 08/26/18 15:46; Admin Dose 650 MG; Start 08/21/18 at 22:00 Ascorbic Acid (Vitamin C) 500 mg TID NGT Last administered on 09/02/18 20:25; Admin Dose 500 MG; Start 08/21/18 at 21:49 Carvedilol (Coreg) 12.5 mg BID PO Last administered on 09/02/18 20:25; Admin Dose 12.5 MG; Start 08/21/18 at 21:51 Docusate Sodium (Colace) 250 mg BID PO Last administered on 09/02/18 20:24; Admin Dose 250 MG; Start 08/21/18 at 21:51 Amlodipine Besylate (Norvasc) 5 mg DAILY PO Last administered on 09/02/18 10:41; Admin Dose 5 MG; Start 08/22/18 at 09:00 Magnesium Hydroxide (Milk Of Mag) 30 ml BID PRN PO CONSTIPATION Last a dministered on 09/01/18 14:48; Admin Dose 30 ML; Start 08/22/18 at 11:00 Lactulose (Enulose) 20 gm DAILY PRN PO CONSTIPATION Last administered on 08/22/18 12:44; Admin Dose 20 GM; Start 08/22/18 at 11:00 Bisacodyl (Dulcolax Supp) 10 mg DAILY PRN [place] CONSTIPATION; Start 08/22/18 at 11:00 Morphine Sulfate (morphine) 1 mg Q6H PRN IV SEVERE PAIN LEVEL 7-10; Start 08/23/18 at 07:00 Nitroglycerin (Nitroglycerin (Sl Tab) 0.4 Mg) 1 tab Q5M PRN SL ANGINA; Start 08/24/18 at 11:30 Gabapentin (Neurontin) 100 mg TID PO Last administered on 09/02/18 20:25; Admin Dose 100 MG; Start 08/25/18 at 13:00 Polyethylene Glycol (Miralax) 17 gm TID PRN PO CONSTIPATION; Start 08/25/18 at 12:00 Insulin Glargine (Lantus) 28 units 2100 SC Last administered on 09/02/18 20:29; Admin Dose 28 UNITS; Start 08/26/18 at 21:00 Hydromorphone HCl (Dilaudid) 1 mg Q3 PRN IV SEVERE PAIN LEVEL 7-10 Last administered on 09/02/18 18:21; Admin Dose 1 MG; Start 08/27/18 at 13:00 Apixaban (Eliquis) 5 mg BID PO Last administered on 09/02/18 20:25; Admin Dose 5 MG; Start 08/29/18 at 11:00 Polysaccharide Iron Complex (Niferex-150) 1 cap BID PO Last administered on 09/02/18 20:24; Admin Dose 1 CAP; Start 09/01/18 at 09:00 Lubiprostone (Amitiza) 24 mcg BID PO Last administered on 09/02/18at 20:24; Admin Dose 24 MCG; Start 09/01/18 at 21:00 Polyethylene Glycol (Miralax) 17 gm DAILY GTB ; Start 09/02/18 at 09:00 Bumetanide (Bumex) 1 mg DAILY PO Last administered on 09/02/18at 08:46; Admin Dose 1 MG; Start 09/01/18 at 12:00 DARRYL SOOD MD September 02, 2018 21:27
[2018-09-03] MEDS: LEVALBUTEROL (NEB) 1.25 MG/0.5 ML AMP HHN SCH ×4 (02:00→20:22)
[2018-09-03] MEDS: ACCU-CHEK XX SCH (02:00)
[2018-09-03] MEDS: IPRATROPIUM (NEB) 0.5 MG/2.5 ML AMP HHN SCH ×4 (02:00→20:22)
[2018-09-03 07:30] VITALS: BP 138/66; PULSE 60; RESP 20
[2018-09-03] MEDS: INSULIN ASPART [NOVOLOG] 3 ML PEN SC SCH ×7 (07:35→21:00)
--- NOTE | 2018-09-03 08:57 | PN ---
Date/Time of Note Date/Time of Note DATE: 09/03/18 TIME: 08:54 Assessment/Plan VTE Prophylaxis Risk score (from Ns)>0 risk: 7 SCD applied (from Ns): No SCD contraindicated: other (on.) Pharmacological prophylaxis: LMWH Lines/Catheters IV Catheter Type [facility]from [facility]): [place] [employer] line still needed: No Urinary Cath still in place: No Reason Cath still needed: urinary retention Assessment/Plan Assessment/Plan 1. Ischemic heart disease angina three-vessel coronary a. disease.s/p CABG x5 08/13/18: WINN to LAD, SVG to ramus sequence to obtuse marginal artery, SVG to PDA, SVG to left ventricular extension branch. Difficult case per Dr. Howell with poor targets.Vein harvesting and epiaortic scanning of the ascending aorta.CAD: s/p multiple prior PCIs. Cath 08/11/18 with multivessel disease. Now with elevated level of the troponin the second 1 is 1.1. We will get q. 6 hours x 2. The patient denies having the chest pain. 2. Hypertension with congestive heart failure diastolic- improved. 3. Diabetes mellitus type 2 blood sugar better controlled. Continue titration. 4. History of cholecystitis and pancreatitis. Elevation of liver function t ests almost 10 to the normal continue follow-up will discuss Dr. Bill. 5. Acute on chronic kidney disease with baseline creatinine being 1.6 up to 3.5 came down to 2.05 yesterday and 1.95 today. Improved after hydration,now mildly dehydrated; 6. Dyslipidemia better controlled 7. History of nasal bleeding recurrent- stable. 8. Morbid obesity with snoring and apnea and daytime sleepiness 9. BPH with nocturia 10. Low back pain with radiculopathy 11. 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 Status post cataract ectomy 13. Diabetic nephropathy retinopathy and angiopathy and neuropathy. 14. Constipation- improved. 15. Grief reaction after the of her 16. Gastroesophageal reflux disease 17. Deep venous thrombosis of the left saphenous vein, 2-3 months ago;was on Eliquis 5 mg twice daily, stopped: since 08/11/2018. 18. Gastritis 19. COPD. Quit smoking 10years ago. 02sat now 95% with persistent cough. 20. History of nephrolithiasis. 21. Drop of hematocrit; s/p 2 units of prbc tx. today level is 25. 22. Drop of albumone and total protein and mild elevation of lft's. 21. Drop of hematocrit; s/p 2 units of prbc tx. further decline today; hematocrit being the 25 recheck tomorrow. 22. Drop of albumone and total protein and mild elevation of lft's. 23.Myopathy 24.insomnia 25.Acute on chronic kidney disease, improving. Recheck labs tomorrow. 26. Pancreatitis with pain. Less intense than yesterday. Still with epigastric fullness 27.Unstable gate. Result Diagram: 09/03/18 0750 09/02/18 0556 Results 24hrs Laboratory Tests Test 09/02/18 11:52 09/02/18 17:28 09/02/18 20:20 09/03/18 07:45 Bedside Glucose 184 183 137 130 Test 09/03/18 07:50 White Blood Count 4.3 L Red Blood Count 2.91 L Hemoglobin 8.2 L Hematocrit 26.7 L Mean Corpuscular 91.8 Volume Mean Corpuscular 28.2 L Hemoglobin Mean Corpuscular 30.7 L Hemoglobin Concent Red Cell 14.7 H Distribution Width Platelet Count 192 Mean Platelet Volume 11.1 H Immature 0.200 Granulocytes % Neutrophils % 61.6 Lymphocytes % 21.3 Monocytes % 11.8 H Eosinophils % 4.6 Basophils % 0.5 Nucleated Red Blood 0.0 Cells % Immature 0.010 Granulocytes # Neutrophils # 2.7 Lymphocytes # 0.9 Monocytes # 0.5 Eosinophils # 0.2 Basophils # 0.0 Nucleated Red Blood 0.0 Cells # Subjective 24 Hr Interval Summary Free Text/Dictation I am still very weak. He can get up myself without help. Decreased pain in the chest area. Anorexia. No melena. No nausea vomiting. No itching of the body. Constitutional: improved, poor po, requiring O2; No no complaints, No chills, No diaphoresis, No disoriented, No febrile, No requiring IVF, No other Eyes: No no complaints, No pain, No discharge, No redness, No visual change, No other ENT: No no complaints, No bleeding, No pain, No congestion, No discharge, No dysphagia, No sore throat, No other Respiratory: cough, shortness of breath; No no complaints, No pain, No pleuritic pain, No sputum, No wheezing, No other Cardiovascular: chest pain, edema; No no complaints, No lightheadedness, No orthopenea, No palpitations, No paroxysmal nocturnal dyspnea, No other Gastrointestinal: pain, constipation, decreased appetite, flatus, nausea, passing stool; No no complaints, No blood, No diarrhea, No vomiting, No other Genitourinary: flank pain; No no complaints, No bleeding, No dysuria, No discharge, No hematuria, No other Musculoskeletal: back pain, bone/joint pain; No no complaints, No neck pain, No restricted range of motion, No swelling, No other Skin: No no complaints, No bruising, No erythema, No laceration, No pruritis, No rash, No skin lesions, No other Neurologic: dizziness; No no complaints, No confusion, No focal-weakness, No headache, No syncope, No seizure, No other Psychological: anxiety; No no complaints, No nl mood/affect, No confusion, No depression, No suicidal, No other Exam/Review of Systems Exam Vitals Vital Signs Date Temp Pulse Resp B/P (MAP) Pulse Ox O2 O2 Flow FiO2 Time Delivery Rate 09/03/18 2.0 04:47 09/02/18 Nasal 20:00 Cannula 09/02/18 98.3 69 18 139/60 95 20:00 (86) Intake and Output 09/02/18 09/02/18 09/03/18 1515:00 23:00 07:00 OutputOutput Total 400 ml 200 ml BalanceBalance -400 ml -200 ml Constitutional: alert, oriented, well developed, distress, frail, obese; No non-verbal, No other Psych: nl mood/affect, anxiety, depression; No no complaints, No confusion, No suicidal, No other Head: normocephalic, atraumatic; No lacerations, No hematomas, No other Eyes: EOMI, nl lids, PERRL, icteric (No jaundice.); No nl conjunctiva, No nl sclera, No fundi, disc, No other ENMT: nl external ears & nose, nl lips & teeth, nl nasal mucosa & septum; No mucosa pink and moist, No intubated, No tympanic membranes, No other Neck: jvd, thyromegaly, nuchal rigidity; No supple, No non-tender, No bruits, No masses, No other Respiratory: normal air movement, crackles/rales, diminished breath sounds; No clear to auscultation, No congested cough, No intercostal retraction, No labored breathing, No respirations, No tactile fremitus, No wheezing, No other Cardiovascular: regular rate and rhythm, bruits, edema; No nl pulses, No diastolic murmur, No gallop, No irregular rhythm, No jugular venous distention (JVD), No murmurs/extra sounds, No rub, No systolic murmur, No S3, No S4, No other Gastrointestinal: soft, nl liver, spleen, bowel sounds, distended; No non-tender, No ascites, No firm, No hepatomegaly, No mass, No rebound or guarding, No splenomegaly, No surgical scars, No tender, No other Genitourinary - Male: nl penis, nl scrotum; No CVA tenderness, No discharge, No other Musculoskeletal: joint tenderness, muscle tone, muscle weakness; No nl extremities to inspection, No nl gait and stance, No range of motion, No spine non-tender, No swelling, No other Extremities: No normal pulses, No calf tenderness, No cyanosis, No clubbing, No edema, No pitting pedal edema, No palpable cord, No tenderness, No other 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: [employer] II-XII intact; No nl mental status, No nl speech, No nl strength, No confused, No DTR's symmetric, No focal weakness, No lethargic, No numbness, No reflexes, No unresponsive, No other Skin: nl turgor; No rash or lesions, No diaphoresis, No ecchymosis, No laceration, No puncture, No other Lymph: No nl lymph nodes, No enlarged, No nontender, No other Results Results 24hrs Laboratory Tests Test 09/02/18 11:52 09/02/18 17:28 09/02/18 20:20 09/03/18 07:45 Bedside Glucose 184 183 137 130 Test 09/03/18 07:50 White Blood Count 4.3 L Red Blood Count 2.91 L Hemoglobin 8.2 L Hematocrit 26.7 L Mean Corpuscular 91.8 Volume Mean Corpuscular 28.2 L Hemoglobin Mean Corpuscular 30.7 L Hemoglobin Concent Red Cell 14.7 H Distribution Width Platelet Count 192 Mean Platelet Volume 11.1 H Immature 0.200 Granulocytes % Neutrophils % 61.6 Lymphocytes % 21.3 Monocytes % 11.8 H Eosinophils % 4.6 Basophils % 0.5 Nucleated Red Blood 0.0 Cells % Immature 0.010 Granulocytes # Neutrophils # 2.7 Lymphocytes # 0.9 Monocytes # 0.5 Eosinophils # 0.2 Basophils # 0.0 Nucleated Red Blood 0.0 Cells # Medications Medication Current Medications Ondansetron HCl (Zofran Inj) 4 mg Q6H PRN IV NAUSEA AND/OR VOMITING; Start 08/21/18 at 21:08 Clopidogrel Bisulfate (plaVIX) 75 mg DAILY NGT Last administered on 09/02/18at 10:40; Admin Dose 75 MG; Start 08/21/18 at 21:08 Levalbuterol (Xopenex Neb) 1.25 mg Q6H RESP THERAPY HHN Last administered on 09/02/18at 19:28; Admin Dose 1.25 MG; Start 08/21/18 at 21:08 Ipratropium [place] (Atrovent 0.02% (Neb)) 0.5 mg Q6H RESP THERAPY HHN Last administered on 09/02/18at 19:27; Admin Dose 0.5 MG; Start 08/21/18 at 21:08 Diagnostic Test (Pha) (Accu-Chek) 1 ea 02 XX Last administered on 08/28/18at 02: 30; Admin Dose 1 EA; Start 08/21/18 at 21:08 Miscellaneous Information 1 ea NOTE XX ; Start 08/21/18 at 21:08 Glucose (Glutose) 15 gm Q15M PRN PO DECREASED GLUCOSE; Start 08/21/18 at 21:08 Glucose (Glutose) 22.5 gm Q15M PRN PO DECREASED GLUCOSE; Start 08/21/18 at 21:08 Dextrose (D50w Syringe) 25 ml Q15M PRN IV DECREASED GLUCOSE; Start 08/21/18 at 21:08 Dextrose (D50w Syringe) 50 ml Q15M PRN IV DECREASED GLUCOSE; Start 08/21/18 at 21:08 Glucagon (Glucagen) 1 mg Q15M PRN IM DECREASED GLUCOSE; Start 08/21/18 at 21:08 Glucose (Glutose) 15 gm Q15M PRN BUCCAL DECREASED GLUCOSE; Start 08/21/18 at 21:08 Famotidine (Pepcid) 20 mg DAILY PO Last administered on 09/02/18 10:41; Admin Dose 20 MG; Start 08/21/18 at 21:08 Insulin Aspart (Novolog Insulin Pen) 10 unit WITH MEALS SC Last administered on 09/02/18 17:35; Admin Dose 10 UNIT; Start 08/21/18 at 21:08 Insulin Aspart (Novolog Insulin Pen) NOVOLOG *MODERATE* ALGORITHM WITH MEALS BEDTIME SC Last administered on 09/02/18 17:36; Admin Dose 4 UNIT; Start 08/21/18 at 21:08 Oxycodone/ Acetaminophen (Endocet (10)) 1 tab Q4H PRN PO MODERATE PAIN LEVEL 4-6 Last administered on 08/31/18 14:29; Admin Dose 1 TAB; Start 08/21/18 at 21:08 Hydralazine HCl (Apresoline) 10 mg Q4H PRN IV SBP >150; Start 08/21/18 at 21:30 Acetaminophen (Tylenol Tab) 650 mg Q3H PRN PO ELEVATED TEMPERATURE Last administered on 08/26/18 15:46; Admin Dose 650 MG; Start 08/21/18 at 22:00 Ascorbic Acid (Vitamin C) 500 mg TID NGT Last administered on 09/02/18 20:25; Admin Dose 500 MG; Start 08/21/18 at 21:49 Carvedilol (Coreg) 12.5 mg BID PO Last administered on 09/02/18 20:25; Admin Dose 12.5 MG; Start 08/21/18 at 21:51 Docusate Sodium (Colace) 250 mg BID PO Last administered on 09/02/18 20:24; Admin Dose 250 MG; Start 08/21/18 at 21:51 Amlodipine Besylate (Norvasc) 5 mg DAILY PO Last administered on 09/02/18 10:41; Admin Dose 5 MG; Start 08/22/18 at 09:00 Magnesium Hydroxide (Milk Of Mag) 30 ml BID PRN PO CONSTIPATION Last administered on 09/01/18 14:48; Admin Dose 30 ML; Start 08/22/18 at 11:00 Lactulose (Enulose) 20 gm DAILY PRN PO CONSTIPATION Last administered on 08/22/18 12:44; Admin Dose 20 GM; Start 08/22/18 at 11:00 Bisacodyl (Dulcolax Supp) 10 mg DAILY PRN [place] CONSTIPATION; Start 08/22/18 at 11:00 Morphine Sulfate (morphine) 1 mg Q6H PRN IV SEVERE PAIN LEVEL 7-10; Start 08/23/18 at 07:00 Nitroglycerin (Nitroglycerin (Sl Tab) 0.4 Mg) 1 tab Q5M PRN SL ANGINA; Start 08/24/18 at 11:30 Gabapentin (Neurontin) 100 mg TID PO Last administered on 09/02/18 20:25; Admin Dose 100 MG; Start 08/25/18 at 13:00 Polyethylene Glycol (Miralax) 17 gm TID PRN PO CONSTIPATION; Start 08/25/18 at 12:00 Insulin Glargine (Lantus) 28 units 2100 SC Last administered on 09/02/18 20:29; Admin Dose 28 UNITS; Start 08/26/18 at 21:00 Hydromorphone HCl (Dilaudid) 1 mg Q3 PRN IV SEVERE PAIN LEVEL 7-10 Last administered on 09/02/18 18:21; Admin Dose 1 MG; Start 08/27/18 at 13:00 Apixaban (Eliquis) 5 mg BID PO Last administered on 09/02/18 20:25; Admin Dose 5 MG; Start 08/29/18 at 11:00 Polysaccharide Iron Complex (Niferex-150) 1 cap BID PO Last administered on 09/02/18 20:24; Admin Dose 1 CAP; Start 09/01/18 at 09:00 Lubiprostone (Amitiza) 24 mcg BID PO Last administered on 09/02/18 20:24; Admin Dose 24 MCG; Start 09/01/18 at 21:00 Polyethylene Glycol (Miralax) 17 gm DAILY GTB ; Start 09/02/18 at 09:00 Bumetanide (Bumex) 1 mg DAILY PO Last administered on 09/02/18 08:46; Admin Dose 1 MG; Start 09/01/18 at 12:00 NERIS BROTHERS MD September 03, 2018 08:57
[2018-09-03] MEDS: POLYETHYLENE GLYCOL 17 GM PACKET GTB SCH (09:05)
[2018-09-03] MEDS: LUBIPROSTONE 24 MCG CAP PO SCH ×2 (09:06→21:30)
[2018-09-03] MEDS: CLOPIDOGREL 75 MG TAB NGT SCH (09:06)
[2018-09-03] MEDS: POLYSACCHARIDE IRON COMPLEX CAP PO SCH ×2 (09:06→21:30)
[2018-09-03] MEDS: BUMETANIDE 1 MG TAB PO SCH (09:06)
[2018-09-03] MEDS: DOCUSATE SODIUM 250 MG CAP PO SCH ×2 (09:07→21:30)
[2018-09-03] MEDS: ASCORBIC ACID 500 MG TAB NGT SCH ×3 (09:07→21:30)
[2018-09-03] MEDS: APIXABAN 5 MG TABLET PO SCH ×2 (09:07→21:30)
[2018-09-03] MEDS: GABAPENTIN 100 MG CAP PO SCH ×3 (09:07→21:30)
[2018-09-03] MEDS: FAMOTIDINE 20 MG TAB PO SCH (09:07)
[2018-09-03] MEDS: AMLODIPINE 5 MG TAB PO SCH (09:08)
[2018-09-03 14:00] VITALS: BP_SYST 126; BP_SYST 147; BP_DIAS 59; BP_DIAS 63; PULSE 64; PULSE 94; RESP 18
--- NOTE | 2018-09-03 14:21 | PN ---
Date/Time of Note Date/Time of Note DATE: 09/03/18 TIME: 14:21 Subjective Family reports they would like to have patient return home sooner Objective Vital Signs Date Temp Pulse Resp B/P (MAP) Pulse Ox O2 O2 Flow FiO2 Time Delivery Rate 09/03/18 Nasal 2.0 08:00 Cannula 09/03/18 97.6 60 20 138/66 97 07:30 (90) Intake and Output 09/02/18 09/02/18 09/03/18 1515:00 23:00 07:00 OutputOutput Total 400 ml 200 ml BalanceBalance -400 ml -200 ml Exam pulm-cta abd-soft cga ambulation Results/Medications Result Diagram: 09/03/18 0750 09/03/18 0750 Results 24 hrs Laboratory Tests Test 09/02/18 17:28 09/02/18 20:20 09/03/18 07:45 09/03/18 07:50 Bedside Glucose 183 137 130 White Blood Count 4.3 L Red Blood Count 2.91 L Hemoglobin 8.2 L Hematocrit 26.7 L Mean Corpuscular 91.8 Volume Mean Corpuscular 28.2 L Hemoglobin Mean Corpuscular 30.7 L Hemoglobin Concent Red Cell 14.7 H Distribution Width Platelet Count 192 Mean Platelet Volume 11.1 H Immature 0.200 Granulocytes % Neutrophils % 61.6 Lymphocytes % 21.3 Monocytes % 11.8 H Eosinophils % 4.6 Basophils % 0.5 Nucleated Red Blood 0.0 Cells % Immature 0.010 Granulocytes # Neutrophils # 2.7 Lymphocytes # 0.9 Monocytes # 0.5 Eosinophils # 0.2 Basophils # 0.0 Nucleated Red Blood 0.0 Cells # Sodium Level 139 Potassium Level 4.0 Chloride Level 100 Carbon Dioxide Level 31 Anion Gap 8 Blood Urea Nitrogen 24 H Creatinine 1.43 H Est Glomerular Filtrat Rate mL/min Glucose Level 125 Calcium Level 8.0 L Total Bilirubin 0.5 Direct Bilirubin 0.00 Indirect Bilirubin 0.5 Aspartate Amino 59 #H Transf (AST/SGOT) Alanine 107 H Aminotransferase (AL T/SGPT) Alkaline Phosphatase 280 H Total Protein 6.3 Albumin 3.1 L Globulin 3.20 Albumin/Globulin 0.96 Ratio Amylase Level 87 Lipase 273 Test 09/03/18 12:19 09/03/18 12:45 Bedside Glucose 236 H Urine Color YELLOW Urine Clarity CLEAR Urine pH 5.0 Urine Specific 1.010 [place] Urine Ketones NEGATIVE Urine Nitrite NEGATIVE Urine Bilirubin NEGATIVE Urine Urobilinogen NEGATIVE Urine Leukocyte NEGATIVE Esterase Urine Hemoglobin NEGATIVE Urine Glucose NEGATIVE Urine Total Protein NEGATIVE Medications Current Medications Ondansetron HCl (Zofran Inj) 4 mg Q6H PRN IV NAUSEA AND/OR VOMITING; Start 08/21/18 at 21:08 Clopidogrel Bisulfate (plaVIX) 75 mg DAILY NGT Last administered on 09/03/18at 09:06; Admin Dose 75 MG; Start 08/21/18 at 21:08 Levalbuterol (Xopenex Neb) 1.25 mg Q6H RESP THERAPY HHN Last administered on at 19:28; Admin Dose 1.25 MG; Start 08/21/18 at 21:08 Ipratropium [place] (Atrovent 0.02% (Neb)) 0.5 mg Q6H RESP THERAPY HHN Last administered on 09/02/18at 19:27; Admin Dose 0.5 MG; Start 08/21/18 at 21:08 Diagnostic Test (Pha) (Accu-Chek) 1 ea 02 XX Last administered on 08/28/18at 02:30; Admin Dose 1 EA; Start 08/21/18 at 21:08 Miscellaneous Information 1 ea NOTE XX ; Start 08/21/18 at 21:08 Glucose (Glutose) 15 gm Q15M PRN PO DECREASED GLUCOSE; Start 08/21/18 at 21:08 Glucose (Glutose) 22.5 gm Q15M PRN PO DECREASED GLUCOSE; Start 08/21/18 at 21:08 Dextrose (D50w Syringe) 25 ml Q15M PRN IV DECREASED GLUCOSE; Start 08/21/18 at 21:08 Dextrose (D50w Syringe) 50 ml Q15M PRN IV DECREASED GLUCOSE; Start 08/21/18 at 21:08 Glucagon (Glucagen) 1 mg Q15M PRN IM DECREASED GLUCOSE; Start 08/21/18 at 21:08 Glucose (Glutose) 15 gm Q15M PRN BUCCAL DECREASED GLUCOSE; Start 08/21/18 at 21:08 Famotidine (Pepcid) 20 mg DAILY PO Last administered on 09/03/18at 09:07; Admin Dose 20 MG; Start 08/21/18 at 21:08 Insulin Aspart (Novolog Insulin Pen) 10 unit WITH MEALS SC Last administered on 09/03/18 12:33; Admin Dose 10 UNIT; Start 08/21/18 at 21:08 Insulin Aspart (Novolog Insulin Pen) NOVOLOG *MODERATE* ALGORITHM WITH MEALS BEDTIME SC Last administered on 09/03/18 12:33; Admin Dose 6 UNIT; Start 08/21/18 at 21:08 Oxycodone/ Acetaminophen (Endocet (10/ 325)) 1 tab Q4H PRN PO MODERATE PAIN LEVEL 4-6 Last administered on 08/31/18 14:29; Admin Dose 1 TAB; Start 08/21/18 at 21:08 Hydralazine HCl (Apresoline) 10 mg Q4H PRN IV SBP >150; Start 08/21/18 at 21:30 Acetaminophen (Tylenol Tab) 650 mg Q3H PRN PO ELEVATED TEMPERATURE Last administered on 08/26/18 15:46; Admin Dose 650 MG; Start 08/21/18 at 22:00 Ascorbic Acid (Vitamin C) 500 mg TID NGT Last administered on 09/03/18 12:36; Admin Dose 500 MG; Start 08/21/18 at 21:49 Carvedilol (Coreg) 12.5 mg BID PO Last administered on 09/03/18 09:08; Admin Dose 12.5 MG; Start 08/21/18 at 21:51 Docusate Sodium (Colace) 250 mg BID PO Last administered on 09/03/18 09:07; Admin Dose 250 MG; Start 08/21/18 at 21:51 Amlodipine Besylate (Norvasc) 5 mg DAILY PO Last administered on 09/03/18 09:08; Admin Dose 5 MG; Start 08/22/18 at 09:00 Magnesium Hydroxide (Milk Of Mag) 30 ml BID PRN PO CONSTIPATION Last administered on 09/01/18 14:48; Admin Dose 30 ML; Start 08/22/18 at 11:00 Lactulose (Enulose) 20 gm DAILY PRN PO CONSTIPATION Last administered on 08/22/18 12:44; Admin Dose 20 GM; Start 08/22/18 at 11:00 Bisacodyl (Dulcolax Supp) 10 mg DAILY PRN [place] CONSTIPATION; Start 08/22/18 at 11:00 Morphine Sulfate (morphine) 1 mg Q6H PRN IV SEVERE PAIN LEVEL 7-10; Start 08/23/18 at 07:00 Nitroglycerin (Nitroglycerin (Sl Tab) 0.4 Mg) 1 tab Q5M PRN SL ANGINA; Start 08/24/18 at 11:30 Gabapentin (Neurontin) 100 mg TID PO Last administered on 09/03/18 12:36; Admin Dose 100 MG; Start 08/25/18 at 13:00 Polyethylene Glycol (Miralax) 17 gm TID PRN PO CONSTIPATION; Start 08/25/18 at 12:00 Insulin Glargine (Lantus) 28 units 2100 SC Last administered on 09/02/18 20:29; Admin Dose 28 UNITS; Start 08/26/18 at 21:00 Hydromorphone HCl (Dilaudid) 1 mg Q3 PRN IV SEVERE PAIN LEVEL 7-10 Last administered on 09/02/18 18:21; Admin Dose 1 MG; Start 08/27/18 at 13:00 Apixaban (Eliquis) 5 mg BID PO Last administered on 09/03/18 09:07; Admin Dose 5 MG; Start 08/29/18 at 11:00 Polysaccharide Iron Complex (Niferex-150) 1 cap BID PO Last administered on 09/03/18 09:06; Admin Dose 1 CAP; Start 09/01/18 at 09:00 Lubiprostone (Amitiza) 24 mcg BID PO Last administered on 09/03/18 09:06; Admin Dose 24 MCG; Start 09/01/18 at 21:00 Polyethylene Glycol (Miralax) 17 gm DAILY GTB Last administered on 09/03/18 09:05; Admin Dose 17 GM; Start 09/02/18 at 09:00 Bumetanide (Bumex) 1 mg DAILY PO Last administered on 09/03/18 09:06; Admin Dose 1 MG; Start 09/01/18 at 12:00 Assessment/Plan Additional Assessment/Plan rehab- Critical illness myopathy; Lumbar radiculopathy with right lower extremity symptoms. Continue rehab therapies and family training Coronary artery disease status post 5-vessel CABG. Status post acute respiratory failure. Acute on chronic kidney disease. Oropharyngeal dysphagia on mechanical soft diet-improved h.o. pancreatitis-f/b GI Chronic obstructive pulmonary disease. Diabetes mellitus type 2. Hypertension. Hyperlipidemia. Osteoarthritis affecting multiple joints, including bilateral knees. Diabetic retinopathy. Anemia of chronic disease. Benign prostatic hypertrophy. YARIEL MARIE MD September 03, 2018 14:21
--- NOTE | 2018-09-03 15:29 | CONS ---
Assessment/Plan Assessment/Plan Hospital Course (Demo Recall) Pancreatitis:had an episode few months ago and was hospitalized at [facility]. No gallstones at that time. Not a drinker, TG ok in the past. Possibly sludge/small stones. Resolved based on symptoms and lipase Transaminitis: due to above.Improved, then worse, now better again Acute on chronic diastolic CHF: Still volume up but improving NSTEMI: residual trop elevation likely from CABG. Trend does not suggest ACS. No symptoms. Ankle pain: XR without fracture. Improving Acute on chronic renal failure: Cr baseline 1.6. Worse after CABG.Now back to baseline Cardiogenic shock: Transient post op Acute respiratory failure: s/p extubation 08/16 Anemia: from operative blood loss. Required one unit. No active bleeding s/p CABG x5 08/13/18: WINN to LAD, SVG to ramus sequence to obtuse marginal artery, SVG to PDA, SVG to left ventricular extension branch. Difficult case per Dr. Howell with poor targets. CAD: s/p multiple prior PCIs. Cath 08/11/18 with multivessel disease. s/p CABG ab ove Recent left femoral DVT: on Eliquis as outpt. DM HT HL -bumex 1mg daily -hold lipitor 40mg, possibly restart tomorrow -Eliquis 5mg BID -continue plavix -coreg 12.5mg BID -amlodipine 5mg Consultation Date/Type/Reason Admit Date/Time August 21, 2018 at 18:31 Initial Consult Date Type of Consult Cardiology Requesting Provider: NERIS BROTHERS MD Date/Time of Note DATE: 09/03/18 TIME: 15:28 24 HR Interval Summary Free Text/Dictation No chest pain besides incisional. No SOB. Working well with PT. Possibly going home tomorrow Exam/Review of Systems Vital Signs Vitals Vital Signs Date Temp Pulse Resp B/P (MAP) Pulse Ox O2 O2 Flow FiO2 Time Delivery Rate 09/03/18 88 18 96 21 09:26 09/03/18 Nasal 2.0 08:00 Cannula 09/03/18 97.6 138/66 07:30 (90) Intake and Output 09/02/18 09/02/18 09/03/18 1515:00 23:00 07:00 OutputOutput Total 400 ml 200 ml BalanceBalance -400 ml -200 ml Exam Constitutional: alert, oriented Psych: no complaints, nl mood/affect Neck: No jvd Respiratory: crackles/rales, diminished breath sounds; No clear to auscultation Cardiovascular: regular rate and rhythm, edema (1+) Gastrointestinal: soft, non-tender; No distended 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: nl mental status, nl speech Labs Result Diagram: 09/03/18 0750 09/03/18 0750 Results 24hrs Laboratory Tests Test 09/02/18 17:28 09/02/18 20:20 09/03/18 07:45 09/03/18 07:50 Bedside Glucose 183 137 130 White Blood Count 4.3 L Red Blood Count 2.91 L Hemoglobin 8.2 L Hematocrit 26.7 L Mean Corpuscular 91.8 Volume Mean Corpuscular 28.2 L Hemoglobin Mean Corpuscular 30.7 L Hemoglobin Concent Red Cell 14.7 H Distribution Width Platelet Count 192 Mean Platelet Volume 11.1 H Immature 0.200 Granulocytes % Neutrophils % 61.6 Lymphocytes % 21.3 Monocytes % 11.8 H Eosinophils % 4.6 Basophils % 0.5 Nucleated Red Blood 0.0 Cells % Immature 0.010 Granulocytes # Neutrophils # 2.7 Lymphocytes # 0.9 Monocytes # 0.5 Eosinophils # 0.2 Basophils # 0.0 Nucleated Red Blood 0.0 Cells # Sodium Level 139 Potassium Level 4.0 Chloride Level 100 Carbon Dioxide Level 31 Anion Gap 8 Blood Urea Nitrogen 24 H Creatinine 1.43 H Est Glomerular Filtrat Rate mL/min Glucose Level 125 Calcium Level 8.0 L Total Bilirubin 0.5 Direct Bilirubin 0.00 Indirect Bilirubin 0.5 Aspartate Amino 59 #H Transf (AST/SGOT) Alanine 107 H Aminotransferase (AL T/SGPT) Alkaline Phosphatase 280 H Total Protein 6.3 Albumin 3.1 L Globulin 3.20 Albumin/Globulin 0.96 Ratio Amylase Level 87 Lipase 273 Test 09/03/18 12:19 09/03/18 12:45 Bedside Glucose 236 H Urine Color YELLOW Urine Clarity CLEAR Urine pH 5.0 Urine Specific 1.010 [place] Urine Ketones NEGATIVE Urine Nitrite NEGATIVE Urine Bilirubin NEGATIVE Urine Urobilinogen NEGATIVE Urine Leukocyte NEGATIVE Esterase Urine Hemoglobin NEGATIVE Urine Glucose NEGATIVE Urine Total Protein NEGATIVE Medications Medications Current Medications Ondansetron HCl (Zofran Inj) 4 mg Q6H PRN IV NAUSEA AND/OR VOMITING; Start 08/21/18 at 21:08 Clopidogrel Bisulfate (plaVIX) 75 mg DAILY NGT Last administered on 09/03/18 09:06; Admin Dose 75 MG; Start 08/21/18 at 21:08 Levalbuterol (Xopenex Neb) 1.25 mg Q6H RESP THERAPY HHN Last administered on 09/02/18 19:28; Admin Dose 1.25 MG; Start 08/21/18 at 21:08 Ipratropium [place] (Atrovent 0.02% (Neb)) 0.5 mg Q6H RESP THERAPY HHN Last administered on 09/02/18 19:27; Admin Dose 0.5 MG; Start 08/21/18 at 21:08 Diagnostic Test (Pha) (Accu-Chek) 1 ea 02 XX Last administered on 08/28/18 02:30; Admin Dose 1 EA; Start 08/21/18 at 21:08 Miscellaneous Information 1 ea NOTE XX ; Start 08/21/18 at 21:08 Glucose (Glutose) 15 gm Q15M PRN PO DECREASED GLUCOSE; Start 08/21/18 at 21:08 Glucose (Glutose) 22.5 gm Q15M PRN PO DECREASED GLUCOSE; Start 08/21/18 at 21:08 Dextrose (D50w Syringe) 25 ml Q15M PRN IV DECREASED GLUCOSE; Start 08/21/18 at 21:08 Dextrose (D50w Syringe) 50 ml Q15M PRN IV DECREASED GLUCOSE; Start 08/21/18 at 21:08 Glucagon (Glucagen) 1 mg Q15M PRN IM DECREASED GLUCOSE; Start 08/21/18 at 21:08 Glucose (Glutose) 15 gm Q15M PRN BUCCAL DECREASED GLUCOSE; Start 08/21/18 at 21:08 Famotidine (Pepcid) 20 mg DAILY PO Last administered on 09/03/18 09:07; Admin Dose 20 MG; Start 08/21/18 at 21:08 Insulin Aspart (Novolog Insulin Pen) 10 unit WITH MEALS SC Last administered on 09/03/18 12:33; Admin Dose 10 UNIT; Start 08/21/18 at 21:08 Insulin Aspart (Novolog Insulin Pen) NOVOLOG *MODERATE* ALGORITHM WITH MEALS BEDTIME SC Last administered on 09/03/18 12:33; Admin Dose 6 UNIT; Start 08/21/18 at 21:08 Oxycodone/ Acetaminophen (Endocet (10/ 325)) 1 tab Q4H PRN PO MODERATE PAIN LEVEL 4-6 Last administered on 08/31/18 14:29; Admin Dose 1 TAB; Start 08/21/18 at 21:08 Hydralazine HCl (Apresoline) 10 mg Q4H PRN IV SBP >150; Start 08/21/18 at 21:30 Acetaminophen (Tylenol Tab) 650 mg Q3H PRN PO ELEVATED TEMPERATURE Last administered on 08/26/18 15:46; Admin Dose 650 MG; Start 08/21/18 at 22:00 Ascorbic Acid (Vitamin C) 500 mg TID NGT Last administered on 09/03/18 12:36; Admin Dose 500 MG; Start 08/21/18 at 21:49 Carvedilol (Coreg) 12.5 mg BID PO Last administered on 09/03/18 09:08; Admin Dose 12.5 MG; Start 08/21/18 at 21:51 Docusate Sodium (Colace) 250 mg BID PO Last administered on 09/03/18 09:07; Ad min Dose 250 MG; Start 08/21/18 at 21:51 Amlodipine Besylate (Norvasc) 5 mg DAILY PO Last administered on 09/03/18 09:08; Admin Dose 5 MG; Start 08/22/18 at 09:00 Magnesium Hydroxide (Milk Of Mag) 30 ml BID PRN PO CONSTIPATION Last administered on 09/01/18 14:48; Admin Dose 30 ML; Start 08/22/18 at 11:00 Lactulose (Enulose) 20 gm DAILY PRN PO CONSTIPATION Last administered on 08/22/18 12:44; Admin Dose 20 GM; Start 08/22/18 at 11:00 Bisacodyl (Dulcolax Supp) 10 mg DAILY PRN [place] CONSTIPATION; Start 08/22/18 at 11:00 Morphine Sulfate (morphine) 1 mg Q6H PRN IV SEVERE PAIN LEVEL 7-10; Start 08/23 at 07:00 Nitroglycerin (Nitroglycerin (Sl Tab) 0.4 Mg) 1 tab Q5M PRN SL ANGINA; Start 08/24/18 at 11:30 Gabapentin (Neurontin) 100 mg TID PO Last administered on 09/03/18 12:36; Admin Dose 100 MG; Start 08/25/18 at 13:00 Polyethylene Glycol (Miralax) 17 gm TID PRN PO CONSTIPATION; Start 08/25/18 at 12:00 Insulin Glargine (Lantus) 28 units 2100 SC Last administered on 09/02/18 20:29; Admin Dose 28 UNITS; Start 08/26/18 at 21:00 Hydromorphone HCl (Dilaudid) 1 mg Q3 PRN IV SEVERE PAIN LEVEL 7-10 Last administered on 09/02/18 18:21; Admin Dose 1 MG; Start 08/27/18 at 13:00 Apixaban (Eliquis) 5 mg BID PO Last administered on 09/03/18 09:07; Admin Dose 5 MG; Start 08/29/18 at 11:00 Polysaccharide Iron Complex (Niferex-150) 1 cap BID PO Last administered on 09/03/18 09:06; Admin Dose 1 CAP; Start 09/01/18 at 09:00 Lubiprostone (Amitiza) 24 mcg BID PO Last administered on 09/03/18 09:06; Admin Dose 24 MCG; Start 09/01/18 at 21:00 Polyethylene Glycol (Miralax) 17 gm DAILY GTB Last administered on 09/03/18 09:05; Admin Dose 17 GM; Start 09/02/18 at 09:00 Bumetanide (Bumex) 1 mg DAILY PO Last administered on 09/03/18 09:06; Admin Dose 1 MG; Start 09/01/18 at 12:00 ALONDRA GILBERT September 03, 2018 15:29
--- NOTE | 2018-09-03 18:19 | PN ---
DATE: 09/03/2018 PSYCHOLOGY -- INDIVIDUAL SESSION -- 90401 This is a followup on a patient who was seen last week. The patient is feeling like he is improving. He just finished walking with physical therapist and felt like he was making progress. He is still very tired and has difficulty doing a lot of physical activity. The patient is overweight and does have difficulty with his movement. The patient is trying hard and as he is doing better, his mood is improving. I worked with the patient to try to continue to encourage him to work on his physical an d emotional health. Dictated By: MARIVEL CALVO PHD SHRUTI/BOBBY Conf#: [id number] DID#: [id number]
--- NOTE | 2018-09-03 18:23 | CONS ---
Assessment/Plan Assessment/Plan Assessment/Plan (Daily) Assessment/Plan Assessment/Plan Hospital Course (Demo Recall) 73 yo male with h/o severe coronary artery disease, s/p multi vessel CABG, is referred to GI to evaluate for abnormal LFTs 1. Pancreatitis, likely biliary -resolved 2. Transaminitis -elevated alk, alt, ast -monitor qd -limit hepatatoxic medications -pt may be passing granules or small stones, lfts are coming down again 3. Severe coronary artery disease, S/P multi vessel CABG recently - pr cardiology team 4. Diabetes mellitus -per primary team 5. Renal failure -per nephrology team 6. Iron deficiency anemia -monitor HH and for acute GI bleeding, pt is on eliquis and plavix 7. Obesity 8. HTN 9. DM2 10. Fatty liver 11. Hepatosplenomegaly US of liver: 1. Sludge is noted within the gallbladder. There is no gallbladder wall thickening or pericholecystic fluid to suggest acute cholecystitis. 2. No biliary duct dilatation. 3. Fatty change of the liver. 4. Hepatosplenomegaly. 5. Slightly increased bilateral renal cortical echogenicity suggest medical renal disease. 6. Questionable 1.4 cm echogenic cortical lesion in the right kidney without corresponding abnormality seen on the previous CT scan. This is likely artifactual CT of abd 09/01: 1. No evidence of pancreatitis. 2. Status post interval median sternotomy. 3. Small pericardial effusion. New since prior exam. 4. Left greater than right bilateral small pleural effusions with bibasilar compressive atelectasis. New since prior exam. 5. High-density sludge in the gallbladder. 6. Calcific atherosclerosis of the aorta and coronary arteries. Plan: Low fat diet Cardiology to evaluate new small pleural effusion seen on CT scan 09/01 Pt likely passed small stone Monitor LFTs, lipase and amylase Monitor HH and for GI bleeding Amitiza 24 mcg bid and miralax qd Consultation Date/Type/Reason Admit Date/Time August 21, 2018 at 18:31 Initial Consult Date Requesting Provider: NERIS BROTHERS MD Date/Time of Note DATE: 09/03/18 TIME: 18:22 24 HR Interval Summary Free Text/Dictation Denies of any abdominal pain no nausea no vomiting Constitutional: no complaints, improved Exam/Review of Systems Exam Vitals Vital Signs Date Temp Pulse Resp B/P (MAP) Pulse Ox O2 O2 Flow FiO2 Time Delivery Rate 09/03/18 98.0 64 18 126/59 94 Room Air 14:00 (81) 09/03/18 21 09:26 09/03/18 2.0 08:00 Intake and Output 09/02/18 09/02/18 09/03/18 1515:00 23:00 07:00 OutputOutput Total 400 ml 200 ml BalanceBalance -400 ml -200 ml Constitutional: alert, oriented, well developed Psych: no complaints, nl mood/affect Head: normocephalic, atraumatic Eyes: nl conjunctiva, EOMI, nl lids, nl sclera, PERRL ENMT: nl external ears & nose, nl lips & teeth, nl nasal mucosa & septum Neck: supple, non-tender Respiratory: clear to auscultation, normal air movement Cardiovascular: regular rate and rhythm, nl pulses Gastrointestinal: soft, nl liver, spleen, non-tender Musculoskeletal: nl extremities to inspection, nl gait and stance Extremities: normal pulses 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: [employer] II-XII intact, nl mental status, nl speech, nl strength Skin: nl turgor; No rash or lesions Lymph: nl lymph nodes Results Result Diagram: 09/03/18 0750 09/03/18 0750 Results 24hrs Laboratory Tests Test 09/02/18 20:20 09/03/18 07:45 09/03/18 07:50 09/03/18 12:19 Bedside Glucose 137 130 236 H White Blood Count 4.3 L Red Blood Count 2.91 L Hemoglobin 8.2 L Hematocrit 26.7 L Mean Corpuscular 91.8 Volume Mean Corpuscular 28.2 L Hemoglobin Mean Corpuscular 30.7 L Hemoglobin Concent Red Cell 14.7 H Distribution Width Platelet Count 192 Mean Platelet Volume 11.1 H Immature 0.200 Granulocytes % Neutrophils % 61.6 Lymphocytes % 21.3 Monocytes % 11.8 H Eosinophils % 4.6 Basophils % 0.5 Nucleated Red Blood 0.0 Cells % Immature 0.010 Granulocytes # Neutrophils # 2.7 Lymphocytes # 0.9 Monocytes # 0.5 Eosinophils # 0.2 Basophils # 0.0 Nucleated Red Blood 0.0 Cells # Sodium Level 139 Potassium Level 4.0 Chloride Level 100 Carbon Dioxide Level 31 Anion Gap 8 Blood Urea Nitrogen 24 H Creatinine 1.43 H Est Glomerular Filtrat Rate mL/min Glucose Level 125 Calcium Level 8.0 L Total Bilirubin 0.5 Direct Bilirubin 0.00 Indirect Bilirubin 0.5 Aspartate Amino 59 #H Transf (AST/SGOT) Alanine 107 H Aminotransferase (AL T/SGPT) Alkaline Phosphatase 280 H Total Protein 6.3 Albumin 3.1 L Globulin 3.20 Albumin/Globulin 0.96 Ratio Amylase Level 87 Lipase 273 Test 09/03/18 12:45 09/03/18 17:37 Urine Color YELLOW Urine Clarity CLEAR Urine pH 5.0 Urine Specific 1.010 [place] Urine Ketones NEGATIVE Urine Nitrite NEGATIVE Urine Bilirubin NEGATIVE Urine Urobilinogen NEGATIVE Urine Leukocyte NEGATIVE Esterase Urine Hemoglobin NEGATIVE Urine Glucose NEGATIVE Urine Total Protein NEGATIVE Bedside Glucose 113 Medications Medication Current Medications Ondansetron HCl (Zofran Inj) 4 mg Q6H PRN IV NAUSEA AND/OR VOMITING; Start 08/21/18 at 21:08 Clopidogrel Bisulfate (plaVIX) 75 mg DAILY NGT Last administered on 09/03/18at 09:06; Admin Dose 75 MG; Start 08/21/18 at 21:08 Levalbuterol (Xopenex Neb) 1.25 mg Q6H RESP THERAPY HHN Last administered on 09/02/18at 19:28; Admin Dose 1.25 MG; Start 08/21/18 at 21:08 Ipratropium [place] (Atrovent 0.02% (Neb)) 0.5 mg Q6H RESP THERAPY HHN Last administered on 09/02/18at 19:27; Admin Dose 0.5 MG; Start 08/21/18 at 21:08 Diagnostic Test (Pha) (Accu-Chek) 1 ea 02 XX Last administered on 08/28/18at 0 2:30; Admin Dose 1 EA; Start 08/21/18 at 21:08 Miscellaneous Information 1 ea NOTE XX ; Start 08/21/18 at 21:08 Glucose (Glutose) 15 gm Q15M PRN PO DECREASED GLUCOSE; Start 08/21/18 at 21:08 Glucose (Glutose) 22.5 gm Q15M PRN PO DECREASED GLUCOSE; Start 08/21/18 at 21:08 Dextrose (D50w Syringe) 25 ml Q15M PRN IV DECREASED GLUCOSE; Start 08/21/18 at 21:08 Dextrose (D50w Syringe) 50 ml Q15M PRN IV DECREASED GLUCOSE; Start 08/21/18 at 21:08 Glucagon (Glucagen) 1 mg Q15M PRN IM DECREASED GLUCOSE; Start 08/21/18 at 21:08 Glucose (Glutose) 15 gm Q15M PRN BUCCAL DECREASED GLUCOSE; Start 08/21/18 at 21: 08 Famotidine (Pepcid) 20 mg DAILY PO Last administered on 09/03/18 09:07; Admin Dose 20 MG; Start 08/21/18 at 21:08 Insulin Aspart (Novolog Insulin Pen) 10 unit WITH MEALS SC Last administered on 09/03/18 17:38; Admin Dose 10 UNIT; Start 08/21/18 at 21:08 Insulin Aspart (Novolog Insulin Pen) NOVOLOG *MODERATE* ALGORITHM WITH MEALS BEDTIME SC Last administered on 09/03/18 12:33; Admin Dose 6 UNIT; Start 08/21/18 at 21:08 Oxycodone/ Acetaminophen (Endocet (10/ 325)) 1 tab Q4H PRN PO MODERATE PAIN LEVEL 4-6 Last administered on 08/31/18 14:29; Admin Dose 1 TAB; Start 08/21/18 at 21:08 Hydralazine HCl (Apresoline) 10 mg Q4H PRN IV SBP >150; Start 08/21/18 at 21:30 Acetaminophen (Tylenol Tab) 650 mg Q3H PRN PO ELEVATED TEMPERATURE Last administered on 08/26/18 15:46; Admin Dose 650 MG; Start 08/21/18 at 22:00 Ascorbic Acid (Vitamin C) 500 mg TID NGT Last administered on 09/03/18 12:36; Admin Dose 500 MG; Start 08/21/18 at 21:49 Carvedilol (Coreg) 12.5 mg BID PO Last administered on 09/03/18 09:08; Admin Dose 12.5 MG; Start 08/21/18 at 21:51 Docusate Sodium (Colace) 250 mg BID PO Last administered on 09/03/18 09:07; Admin Dose 250 MG; Start 08/21/18 at 21:51 Amlodipine Besylate (Norvasc) 5 mg DAILY PO Last administered on 09/03/18 09:08; Admin Dose 5 MG; Start 08/22/18 at 09:00 Magnesium Hydroxide (Milk Of Mag) 30 ml BID PRN PO CONSTIPATION Last administered on 09/01/18 14:48; Admin Dose 30 ML; Start 08/22/18 at 11:00 Lactulose (Enulose) 20 gm DAILY PRN PO CONSTIPATION Last administered on 08/22/18 12:44; Admin Dose 20 GM; Start 08/22/18 at 11:00 Bisacodyl (Dulcolax Supp) 10 mg DAILY PRN [place] CONSTIPATION; Start 08/22/18 at 11:00 Morphine Sulfate (morphine) 1 mg Q6H PRN IV SEVERE PAIN LEVEL 7-10; Start 08/23/18 at 07:00 Nitroglycerin (Nitroglycerin (Sl Tab) 0.4 Mg) 1 tab Q5M PRN SL ANGINA; Start 08/24/18 at 11:30 Gabapentin (Neurontin) 100 mg TID PO Last administered on 09/03/18 12:36; Admin Dose 100 MG; Start 08/25/18 at 13:00 Polyethylene Glycol (Miralax) 17 gm TID PRN PO CONSTIPATION; Start 08/25/18 at 12:00 Insulin Glargine (Lantus) 28 units 2100 SC Last administered on 09/02/18 20:29; Admin Dose 28 UNITS; Start 08/26/18 at 21:00 Hydromorphone HCl (Dilaudid) 1 mg Q3 PRN IV SEVERE PAIN LEVEL 7-10 Last administered on 09/02/18 18:21; Admin Dose 1 MG; Start 08/27/18 at 13:00 Apixaban (Eliquis) 5 mg BID PO Last administered on 09/03/18 09:07; Admin Dose 5 MG; Start 08/29/18 at 11:00 Polysaccharide Iron Complex (Niferex-150) 1 cap BID PO Last administered on 09/03/18 09:06; Admin Dose 1 CAP; Start 09/01/18 at 09:00 Lubiprostone (Amitiza) 24 mcg BID PO Last administered on 09/03/18 09:06; Admin Dose 24 MCG; Start 09/01/18 at 21:00 Polyethylene Glycol (Miralax) 17 gm DAILY GTB Last administered on 09/03/18 09:05; Admin Dose 17 GM; Start 09/02/18 at 09:00 Bumetanide (Bumex) 1 mg DAILY PO Last administered on 09/03/18at 09:06; Admin Dose 1 MG; Start 09/01/18 at 12:00 BREN PRABHAKAR MD September 03, 2018 18:23
[2018-09-03 20:00] VITALS: BP 133/63; PULSE 68; RESP 18
[2018-09-03] MEDS: INSULIN GLARGINE [LANTus] (100 UNITS/ML) SYG SC SCH (21:32)
[2018-09-04] MEDS: LEVALBUTEROL (NEB) 1.25 MG/0.5 ML AMP HHN SCH ×4 (01:54→20:00)
[2018-09-04] MEDS: IPRATROPIUM (NEB) 0.5 MG/2.5 ML AMP HHN SCH ×4 (01:54→20:00)
[2018-09-04 02:00] VITALS: BP 124/68; PULSE 62; RESP 18
[2018-09-04] MEDS: ACCU-CHEK XX SCH (02:24)
[2018-09-04] MEDS: INSULIN ASPART [NOVOLOG] 3 ML PEN SC SCH ×7 (07:35→21:10)
--- NOTE | 2018-09-04 09:44 | PN ---
Date/Time of Note Date/Time of Note DATE: 09/04/18 TIME: 09:40 Assessment/Plan VTE Prophylaxis Risk score (from Ns)>0 risk: 10 SCD applied (from Ns): No SCD contraindicated: other (on.) Pharmacological prophylaxis: apixaban Lines/Catheters IV Catheter Type (from [facility]): [place] [employer] line still needed: No Urinary Cath still in place: No Reason Cath still needed: urinary retention Assessment/Plan Assessment/Plan 1. Ischemic heart disease angina three-vessel coronary a. disease.s/p CABG x5 08/13/18: WINN to LAD, SVG to ramus sequence to obtuse marginal artery, SVG to PDA, SVG to left ventricular extension branch. Difficult case per Dr. Howell with poor targets.Vein harvesting and epiaortic scanning of the ascending aorta.CAD: s/p multiple prior PCIs. Cath 08/11/18 with multivessel disease. Now with elevated level of the troponin the second 1 is 1.1. We will get q. 6 hours x 2. The patient denies having the chest pain. 2. Hypertension with congestive heart failure diastolic- improved. 3. Diabetes mellitus type 2 blood sugar better controlled. Continue titration. 4. History of cholecystitis and pancreatitis. Elevation of liver function tests almost 10 to the normal continue follow-up will discuss Dr. Bill. 5. Acute on chronic kidney disease with baseline creatinine being 1.6 up to 3.5 came down to 2.05 yesterday and 1.95 today. Improved after hydration,now mildly dehydrated; 6. Dyslipidemia better controlled 7. History of nasal bleeding recurrent- stable. 8. Morbid obesity with snoring and apnea and daytime sleepiness 9. BPH with nocturia 10. Low back pain with radiculopathy 11. 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 Status post cataract ectomy 13. Diabetic nephropathy retinopathy and angiopathy and neuropathy. 14. Constipation- improved. 15. Grief reaction after the of her 16. Gastroesophageal reflux disease 17. Deep venous thrombosis of the left saphenous vein, 2-3 months ago;was on Eliquis 5 mg twice daily, stopped: since 08/11/2018. 18. Gastritis 19. COPD. Quit smoking 10years ago. 02sat now 95% with persistent cough. 20. History of nephrolithiasis. 21. Drop of hematocrit; s/p 2 units of prbc tx. today level is 25. 22. Drop of albumone and total protein and mild elevation of lft's. 21. Drop of hematocrit; s/p 2 units of prbc tx. further decline today; hematocrit being the 25 recheck tomorrow. 22. Elevation of alkaline phosphatase and mild elevation of lft's. Result Diagram: 09/04/18 0556 09/04/18 0554 Results 24hrs Laboratory Tests Test 09/03/18 12:19 09/03/18 12:45 09/03/18 17:37 09/03/18 21:29 Bedside Glucose 236 H 113 120 Urine Color YELLOW Urine Clarity CLEAR Urine pH 5.0 Urine Specific 1.010 [place] Urine Ketones NEGATIVE Urine Nitrite NEGATIVE Urine Bilirubin NEGATIVE Urine Urobilinogen NEGATIVE Urine Leukocyte NEGATIVE Esterase Urine Hemoglobin NEGATIVE Urine Glucose NEGATIVE Urine Total Protein NEGATIVE Test 09/04/18 05:54 09/04/18 05:56 09/04/18 07:56 Sodium Level 140 Potassium Level 3.9 Chloride Level 102 Carbon Dioxide Level 32 H Anion Gap 6 Blood Urea Nitrogen 18 Creatinine 1.43 H Est Glomerular Filtrat Rate mL/min Glucose Level 97 Calcium Level 8.4 Total Bilirubin 0.6 Direct Bilirubin 0.00 Indirect Bilirubin 0.6 Aspartate Amino 49 H Transf (AST/SGOT) Alanine 88 H Aminotransferase (AL T/SGPT) Alkaline Phosphatase 238 H Total Protein 6.4 Albumin 3.1 L Globulin 3.30 H Albumin/Globulin 0.93 Ratio White Blood Count 4.2 L Red Blood Count 2.96 L Hemoglobin 8.5 L Hematocrit 27.2 L Mean Corpuscular 91.9 Volume Mean Corpuscular 28.7 L Hemoglobin Mean Corpuscular 31.3 L Hemoglobin Concent Red Cell 14.8 H Distribution Width Platelet Count 182 Mean Platelet Volume 10.8 H Immature 0.500 H Granulocytes % Neutrophils % 56.3 Lymphocytes % 24.6 Monocytes % 13.0 H Eosinophils % 5.1 Basophils % 0.5 Nucleated Red Blood 0.0 Cells % Immature 0.020 Granulocytes # Neutrophils # 2.3 Lymphocytes # 1.0 Monocytes # 0.5 Eosinophils # 0.2 Basophils # 0.0 Nucleated Red Blood 0.0 Cells # Magnesium Level 1.5 L Iron Level 49 Total Iron Binding 232 L Capacity Percent Iron 21 L Saturation Bedside Glucose 109 Subjective 24 Hr Interval Summary Free Text/Dictation Severe weakness. Generalized body ache. Right upper quadrant abdominal pain worse while breathing deeply. No melena positive for nausea no vomiting no itching. Constitutional: improved, poor po, requiring O2; No no complaints, No chills, No diaphoresis, No disoriented, No febrile, No requiring IVF, No other Eyes: No no complaints, No pain, No discharge, No redness, No visual change, No other ENT: other (Right-sided nasal bleeding at night with the dry trace of blood on the right nostril.); No no complaints, No bleeding, No pain, No congestion, No discharge, No dysphagia, No sore throat Respiratory: cough, pleuritic pain, shortness of breath; No no complaints, No pain, No sputum, No wheezing, No other Cardiovascular: chest pain; No no complaints, No edema, No lightheadedness, No orthopenea, No palpitations, No paroxysmal nocturnal dyspnea, No other Gastrointestinal: constipation, decreased appetite, flatus, nausea, passing stool; No no complaints, No pain, No blood, No diarrhea, No vomiting, No other Genitourinary: dysuria; No no complaints, No bleeding, No discharge, No flank pain, No hematuria, No other Musculoskeletal: back pain, bone/joint pain, neck pain; No no complaints, No restricted range of motion, No swelling, No other Skin: bruising, erythema, pruritis; No no complaints, No laceration, No rash, No skin lesions, No other Neurologic: headache; No no complaints, No confusion, No dizziness, No focal-weakness, No syncope, No seizure, No other Endocrine: dry skin; No no complaints, No polyuria, No polydypsia, No temp intolerance, No other Lymphatic: No no complaints, No adenopathy, No tender nodes, No lymphadema, No other Psychological: anxiety; No no complaints, No nl mood/affect, No confusion, No depression, No suicidal, No other Exam/Review of Systems Exam Vitals Vital Signs Date Temp Pulse Resp B/P (MAP) Pulse Ox O2 O2 Flow FiO2 Time Delivery Rate 09/04/18 98.2 62 18 124/68 96 Room Air 02:00 (86) 09/04/18 2.0 01:30 09/03/18 21 20:22 Intake and Output 09/03/18 09/03/18 09/04/18 1515:00 23:00 07:00 IntakeIntake Total 700 ml OutputOutput Total 650 ml 870 ml BalanceBalance -650 ml -170 ml Constitutional: alert, oriented, well developed, distress, frail, obese Psych: anxiety, depression; No no complaints, No nl mood/affect, No confusion, No suicidal, No other Head: normocephalic, atraumatic; No lacerations, No hematomas, No other Eyes: EOMI, nl lids, nl sclera (Pale conjunctiva.), PERRL; No nl conjunctiva, No icteric, No fundi, disc, No other ENMT: nl lips & teeth, nl nasal mucosa & septum; No nl external ears & nose, No mucosa pink and moist, No intubated, No tympanic membranes, No other Neck: jvd, bruits; No supple, No non-tender, No masses, No thyromegaly, No nuchal rigidity, No other Respiratory: normal air movement, diminished breath sounds; No clear to auscultation, No congested cough, No crackles/rales, No intercostal retraction, No labored breathing, No respirations, No tactile fremitus, No wheezing, No other Cardiovascular: regular rate and rhythm, edema, systolic murmur; No nl pulses, No bruits, No diastolic murmur, No gallop, No irregular rhythm, No jugular venous distention (JVD), No murmurs/extra sounds, No rub, No S3, No S4, No other Gastrointestinal: soft (Painful right upper quadrant. No guarding.); No nl liver, spleen, No non-tender, No ascites, No bowel sounds, No distended, No firm, No hepatomegaly, No mass, No rebound or guarding, No splenomegaly, No surgical scars, No tender, No other Genitourinary - Male: nl penis, nl scrotum Musculoskeletal: joint tenderness, muscle tone, muscle weakness; No nl extremities to inspection, No nl gait and stance, No range of motion, No spine non-tender, No swelling, No other Extremities: normal pulses; No calf tenderness, No cyanosis, No clubbing, No edema, No pitting pedal edema, No palpable cord, No tenderness, No other 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: MULTIPLEX OPERATOR II-XII intact; No nl mental status, No nl speech, No nl strength, No confused, No DTR's symmetric, No focal weakness, No lethargic, No numbness, No reflexes, No unresponsive, No other Skin: nl turgor; No rash or lesions, No diaphoresis, No ecchymosis, No laceration, No puncture, No other Lymph: No nl lymph nodes, No enlarged, No nontender, No other Results Results 24hrs Laboratory Tests Test 09/03/18 12:19 09/03/18 12:45 09/03/18 17:37 09/03/18 21:29 Bedside Glucose 236 H 113 120 Urine Color YELLOW Urine Clarity CLEAR Urine pH 5.0 Urine Specific 1.010 [place] Urine Ketones NEGATIVE Urine Nitrite NEGATIVE Urine Bilirubin NEGATIVE Urine Urobilinogen NEGATIVE Urine Leukocyte NEGATIVE Esterase Urine Hemoglobin NEGATIVE Urine Glucose NEGATIVE Urine Total Protein NEGATIVE Test 09/04/18 05:54 09/04/18 05:56 09/04/18 07:56 Sodium Level 140 Potassium Level 3.9 Chloride Level 102 Carbon Dioxide Level 32 H Anion Gap 6 Blood Urea Nitrogen 18 Creatinine 1.43 H Est Glomerular Filtrat Rate mL/min Glucose Level 97 Calcium Level 8.4 Total Bilirubin 0.6 Direct Bilirubin 0.00 Indirect Bilirubin 0.6 Aspartate Amino 49 H Transf (AST/SGOT) Alanine 88 H Aminotransferase (AL T/SGPT) Alkaline Phosphatase 238 H Total Protein 6.4 Albumin 3.1 L Globulin 3.30 H Albumin/Globulin 0.93 Ratio White Blood Count 4.2 L Red Blood Count 2.96 L Hemoglobin 8.5 L Hematocrit 27.2 L Mean Corpuscular 91.9 Volume Mean Corpuscular 28.7 L Hemoglobin Mean Corpuscular 31.3 L Hemoglobin Concent Red Cell 14.8 H Distribution Width Platelet Count 182 Mean Platelet Volume 10.8 H Immature 0.500 H Granulocytes % Neutrophils % 56.3 Lymphocytes % 24.6 Monocytes % 13.0 H Eosinophils % 5.1 Basophils % 0.5 Nucleated Red Blood 0.0 Cells % Immature 0.020 Granulocytes # Neutrophils # 2.3 Lymphocytes # 1.0 Monocytes # 0.5 Eosinophils # 0.2 Basophils # 0.0 Nucleated Red Blood 0.0 Cells # Magnesium Level 1.5 L Iron Level 49 Total Iron Binding 232 L Capacity Percent Iron 21 L Saturation Bedside Glucose 109 Medications Medication Current Medications Ondansetron HCl (Zofran Inj) 4 mg Q6H PRN IV NAUSEA AND/OR VOMITING; Start 08/21/18 at 21:08 Clopidogrel Bisulfate (plaVIX) 75 mg DAILY NGT Last administered on 09/03/18at 09:06; Admin Dose 75 MG; Start 08/21/18 at 21:08 Levalbuterol (Xopenex Neb) 1.25 mg Q6H RESP THERAPY HHN Last administered on 09/03/18 20:22; Admin Dose 1.25 MG; Start 08/21/18 at 21:08 Ipratropium [place] (Atrovent 0.02% (Neb)) 0.5 mg Q6H RESP THERAPY HHN Last administered on 09/03/18 20:22; Admin Dose 0.5 MG; Start 08/21/18 at 21:08 Diagnostic Test (Pha) (Accu-Chek) 1 ea 02 XX Last administered on 09/04/18at 02:24; Admin Dose 1 EA; Start 08/21/18 at 21:08 Miscellaneous Information 1 ea NOTE XX ; Start 08/21/18 at 21:08 Glucose (Glutose) 15 gm Q15M PRN PO DECREASED GLUCOSE; Start 08/21/18 at 21:08 Glucose (Glutose) 22.5 gm Q15M PRN PO DECREASED GLUCOSE; Start 08/21/18 at 21:08 Dextrose (D50w Syringe) 25 ml Q15M PRN IV DECREASED GLUCOSE; Start 08/21/18 at 21:08 Dextrose (D50w Syringe) 50 ml Q15M PRN IV DECREASED GLUCOSE; Start 08/21/18 at 21:08 Glucagon (Glucagen) 1 mg Q15M PRN IM DECREASED GLUCOSE; Start 08/21/18 at 21:08 Glucose (Glutose) 15 gm Q15M PRN BUCCAL DECREASED GLUCOSE; Start 08/21/18 at 21:08 Famotidine (Pepcid) 20 mg DAILY PO Last administered on 09/03/18at 09:07; Admin Dose 20 MG; Start 08/21/18 at 21:08 Insulin Aspart (Novolog Insulin Pen) 10 unit WITH MEALS SC Last administered on 09/04/18at 08:01; Admin Dose 10 UNIT; Start 08/21/18 at 21:08 Insulin Aspart (Novolog Insulin Pen) NOVOLOG *MODERATE* ALGORITHM WITH MEALS BEDTIME SC Last administered on 09/03/18 12:33; Admin Dose 6 UNIT; Start 08/21/18 at 21:08 Oxycodone/ Acetaminophen (Endocet (10/ 325)) 1 tab Q4H PRN PO MODERATE PAIN LEVEL 4-6 Last administered on 08/31/18 14:29; Admin Dose 1 TAB; Start 08/21/18 at 21:08 Hydralazine HCl (Apresoline) 10 mg Q4H PRN IV SBP >150; Start 08/21/18 at 21:30 Acetaminophen (Tylenol Tab) 650 mg Q3H PRN PO ELEVATED TEMPERATURE Last administered on 08/26/18 15:46; Admin Dose 650 MG; Start 08/21/18 at 22:00 Ascorbic Acid (Vitamin C) 500 mg TID NGT Last administered on 09/03/18 21:30; Admin Dose 500 MG; Start 08/21/18 at 21:49 Carvedilol (Coreg) 12.5 mg BID PO Last administered on 09/03/18 21:42; Admin Dose 12.5 MG; Start 08/21/18 at 21:51 Docusate Sodium (Colace) 250 mg BID PO Last administered on 09/03/18 21:30; Admin Dose 250 MG; Start 08/21/18 at 21:51 Amlodipine Besylate (Norvasc) 5 mg DAILY PO Last administered on 09/03/18 09:08; Admin Dose 5 MG; Start 08/22/18 at 09:00 Magnesium Hydroxide (Milk Of Mag) 30 ml BID PRN PO CONSTIPATION Last administered on 09/01/18 14:48; Admin Dose 30 ML; Start 08/22/18 at 11:00 Lactulose (Enulose) 20 gm DAILY PRN PO CONSTIPATION Last administered on 08/22/18 12:44; Admin Dose 20 GM; Start 08/22/18 at 11:00 Bisacodyl (Dulcolax Supp) 10 mg DAILY PRN DE CONSTIPATION; Start 08/22/18 at 11:00 Morphine Sulfate (morphine) 1 mg Q6H PRN IV SEVERE PAIN LEVEL 7-10; Start 08/23/18 at 07:00 Nitroglycerin (Nitroglycerin (Sl Tab) 0.4 Mg) 1 tab Q5M PRN SL ANGINA; Start 08/24/18 at 11:30 Gabapentin (Neurontin) 100 mg TID PO Last administered on 09/03/18 21:30; Admin Dose 100 MG; Start 08/25/18 at 13:00 Polyethylene Glycol (Miralax) 17 gm TID PRN PO CONSTIPATION; Start 08/25/18 at 12:00 Insulin Glargine (Lantus) 28 units 2100 SC Last administered on 09/03/18 21:32; Admin Dose 28 UNITS; Start 08/26/18 at 21:00 Hydromorphone HCl (Dilaudid) 1 mg Q3 PRN IV SEVERE PAIN LEVEL 7-10 Last administered on 09/02/18 18:21; Admin Dose 1 MG; Start 08/27/18 at 13:00 Apixaban (Eliquis) 5 mg BID PO Last administered on 09/03/18 21:30; Admin Dose 5 MG; Start 08/29/18 at 11:00 Polysaccharide Iron Complex (Niferex-150) 1 cap BID PO Last administered on 09/03/18 21:30; Admin Dose 1 CAP; Start 09/01/18 at 09:00 Lubiprostone (Amitiza) 24 mcg BID PO Last administered on 09/03/18 21:30; Admin Dose 24 MCG; Start 09/01/18 at 21:00 Polyethylene Glycol (Miralax) 17 gm DAILY GTB Last administered on 09/03/18 09:05; Admin Dose 17 GM; Start 09/02/18 at 09:00 Bumetanide (Bumex) 1 mg DAILY PO Last administered on 09/03/18 09:06; Admin Dose 1 MG; Start 09/01/18 at 12:00 NERIS BROTHERS MD September 04, 2018 09:44
[2018-09-04] MEDS: GABAPENTIN 100 MG CAP PO SCH ×3 (09:55→20:48)
[2018-09-04] MEDS: DOCUSATE SODIUM 250 MG CAP PO SCH ×2 (09:55→20:47)
[2018-09-04] MEDS: CLOPIDOGREL 75 MG TAB NGT SCH (09:55)
[2018-09-04] MEDS: LUBIPROSTONE 24 MCG CAP PO SCH ×2 (09:55→20:49)
[2018-09-04] MEDS: HYDROmorphONE 1 MG/ML SYG IV PRN ×4 (09:55→17:44)
[2018-09-04] MEDS: FAMOTIDINE 20 MG TAB PO SCH (09:56)
[2018-09-04] MEDS: BUMETANIDE 1 MG TAB PO SCH (09:56)
[2018-09-04] MEDS: POLYSACCHARIDE IRON COMPLEX CAP PO SCH ×2 (09:56→20:48)
[2018-09-04] MEDS: APIXABAN 5 MG TABLET PO SCH ×2 (09:57→20:48)
[2018-09-04] MEDS: POLYETHYLENE GLYCOL 17 GM PACKET GTB SCH (09:58)
[2018-09-04] MEDS: ASCORBIC ACID 500 MG TAB NGT SCH ×3 (10:01→20:49)
[2018-09-04] MEDS: AMLODIPINE 5 MG TAB PO SCH (10:02)
[2018-09-04 10:53] VITALS: BP 140/72; PULSE 57; RESP 18
[2018-09-04] MEDS: MAGNESIUM CHLORIDE (SR) 64 MG TAB PO SCH ×2 (12:41→20:48)
--- NOTE | 2018-09-04 13:14 | PN ---
Date/Time of Note Date/Time of Note DATE: 09/04/18 TIME: 13:12 Subjective Feeling better Objective Vital Signs Date Temp Pulse Resp B/P (MAP) Pulse Ox O2 O2 Flow FiO2 Time Delivery Rate 09/04/18 98.2 57 18 140/72 94 Room Air 10:53 (94) 09/04/18 2.0 01:30 09/03/18 21 20:22 Intake and Output 09/03/18 09/03/18 09/04/18 1414:59 22:59 06:59 IntakeIntake Total 700 ml OutputOutput Total 650 ml 870 ml BalanceBalance -650 ml -170 ml Exam pulm-cta abd-soft sba transfer and ambulation Results/Medications Result Diagram: 09/04/18 0556 09/04/18 0554 Results 24 hrs Laboratory Tests Test 09/03/18 17:37 09/03/18 21:29 09/04/18 05:54 09/04/18 05:56 Bedside Glucose 113 120 Sodium Level 140 Potassium Level 3.9 Chloride Level 102 Carbon Dioxide Level 32 H Anion Gap 6 Blood Urea Nitrogen 18 Creatinine 1.43 H Est Glomerular Filtrat Rate mL/min Glucose Level 97 Calcium Level 8.4 Total Bilirubin 0.6 Direct Bilirubin 0.00 Indirect Bilirubin 0.6 Aspartate Amino 49 H Transf (AST/SGOT) Alanine 88 H Aminotransferase (AL T/SGPT) Alkaline Phosphatase 238 H Total Protein 6.4 Albumin 3.1 L Globulin 3.30 H Albumin/Globulin 0.93 Ratio White Blood Count 4.2 L Red Blood Count 2.96 L Hemoglobin 8.5 L Hematocrit 27.2 L Mean Corpuscular 91.9 Volume Mean Corpuscular 28.7 L Hemoglobin Mean Corpuscular 31.3 L Hemoglobin Concent Red Cell 14.8 H Distribution Width Platelet Count 182 Mean Platelet Volume 10.8 H Immature 0.500 H Granulocytes % Neutrophils % 56.3 Lymphocytes % 24.6 Monocytes % 13.0 H Eosinophils % 5.1 Basophils % 0.5 Nucleated Red Blood 0.0 Cells % Immature 0.020 Granulocytes # Neutrophils # 2.3 Lymphocytes # 1.0 Monocytes # 0.5 Eosinophils # 0.2 Basophils # 0.0 Nucleated Red Blood 0.0 Cells # Magnesium Level 1.5 L Iron Level 49 Total Iron Binding 232 L Capacity Percent Iron 21 L Saturation Test 09/04/18 07:56 09/04/18 12:28 Bedside Glucose 109 155 Medications Current Medications Ondansetron HCl (Zofran Inj) 4 mg Q6H PRN IV NAUSEA AND/OR VOMITING; Start 08/21/18 at 21:08 Clopidogrel Bisulfate (plaVIX) 75 mg DAILY NGT Last administered on 09/04/18at 09:55; Admin Dose 75 MG; Start 08/21/18 at 21:08 Levalbuterol (Xopenex Neb) 1.25 mg Q6H RESP THERAPY HHN Last administered on 09/03/18 20:22; Admin Dose 1.25 MG; Start 08/21/18 at 21:08 Ipratropium [place] (Atrovent 0.02% (Neb)) 0.5 mg Q6H RESP THERAPY HHN Last administered on 09/03/18 20:22; Admin Dose 0.5 MG; Start 08/21/18 at 21:08 Diagnostic Test (Pha) (Accu-Chek) 1 ea 02 XX Last administered on 09/04/18at 0 2:24; Admin Dose 1 EA; Start 08/21/18 at 21:08 Miscellaneous Information 1 ea NOTE XX ; Start 08/21/18 at 21:08 Glucose (Glutose) 15 gm Q15M PRN PO DECREASED GLUCOSE; Start 08/21/18 at 21:08 Glucose (Glutose) 22.5 gm Q15M PRN PO DECREASED GLUCOSE; Start 08/21/18 at 21:08 Dextrose (D50w Syringe) 25 ml Q15M PRN IV DECREASED GLUCOSE; Start 08/21/18 at 21:08 Dextrose (D50w Syringe) 50 ml Q15M PRN IV DECREASED GLUCOSE; Start 08/21/18 at 21:08 Glucagon (Glucagen) 1 mg Q15M PRN IM DECREASED GLUCOSE; Start 08/21/18 at 21:08 Glucose (Glutose) 15 gm Q15M PRN BUCCAL DECREASED GLUCOSE; Start 08/21/18 at 21: 08 Famotidine (Pepcid) 20 mg DAILY PO Last administered on 09/04/18at 09:56; Admin Dose 20 MG; Start 08/21/18 at 21:08 Insulin Aspart (Novolog Insulin Pen) 10 unit WITH MEALS SC Last administered on 09/04/18at 12:34; Admin Dose 10 UNIT; Start 08/21/18 at 21:08 Insulin Aspart (Novolog Insulin Pen) NOVOLOG *MODERATE* ALGORITHM WITH MEALS BEDTIME SC Last administered on 09/04/18 12:34; Admin Dose 2 UNIT; Start 08/21/18 at 21:08 Oxycodone/ Acetaminophen (Endocet (10/ 325)) 1 tab Q4H PRN PO MODERATE PAIN LEVEL 4-6 Last administered on 08/31/18 14:29; Admin Dose 1 TAB; Start 08/21/18 at 21:08 Hydralazine HCl (Apresoline) 10 mg Q4H PRN IV SBP >150; Start 08/21/18 at 21:30 Acetaminophen (Tylenol Tab) 650 mg Q3H PRN PO ELEVATED TEMPERATURE Last administered on 08/26/18 15:46; Admin Dose 650 MG; Start 08/21/18 at 22:00 Ascorbic Acid (Vitamin C) 500 mg TID NGT Last administered on 09/04/18 12:41; Admin Dose 500 MG; Start 08/21/18 at 21:49 Carvedilol (Coreg) 12.5 mg BID PO Last administered on 09/04/18 09:58; Admin Dose 12.5 MG; Start 08/21/18 at 21:51 Docusate Sodium (Colace) 250 mg BID PO Last administered on 09/04/18 09:55; Admin Dose 250 MG; Start 08/21/18 at 21:51 Amlodipine Besylate (Norvasc) 5 mg DAILY PO Last administered on 09/04/18 10:02; Admin Dose 5 MG; Start 08/22/18 at 09:00 Magnesium Hydroxide (Milk Of Mag) 30 ml BID PRN PO CONSTIPATION Last administered on 09/01/18 14:48; Admin Dose 30 ML; Start 08/22/18 at 11:00 Lactulose (Enulose) 20 gm DAILY PRN PO CONSTIPATION Last administered on 08/22/18 12:44; Admin Dose 20 GM; Start 08/22/18 at 11:00 Bisacodyl (Dulcolax Supp) [address] CONSTIPATION; Start 08/22/18 at 11:00 Morphine Sulfate (morphine) 1 mg Q6H PRN IV SEVERE PAIN LEVEL 7-10; Start 08/23/18 at 07:00 Nitroglycerin (Nitroglycerin (Sl Tab) 0.4 Mg) 1 tab Q5M PRN SL ANGINA; Start 08/24/18 at 11:30 Gabapentin (Neurontin) 100 mg TID PO Last administered on 09/04/18 12:41; Admin Dose 100 MG; Start 08/25/18 at 13:00 Polyethylene Glycol (Miralax) 17 gm TID PRN PO CONSTIPATION; Start 08/25/18 at 12:00 Insulin Glargine (Lantus) 28 units 2100 SC Last administered on 09/03/18 21:32; Admin Dose 28 UNITS; Start 08/26/18 at 21:00 Hydromorphone HCl (Dilaudid) 1 mg Q3 PRN IV SEVERE PAIN LEVEL 7-10 Last administered on 09/04/18 12:59; Admin Dose 1 MG; Start 08/27/18 at 13:00 Apixaban (Eliquis) 5 mg BID PO Last administered on 09/04/18 09:57; Admin Dose 5 MG; Start 08/29/18 at 11:00 Polysaccharide Iron Complex (Niferex-150) 1 cap BID PO Last administered on 09/04/18 09:56; Admin Dose 1 CAP; Start 09/01/18 at 09:00 Lubiprostone (Amitiza) 24 mcg BID PO Last administered on 09/04/18 09:55; Admin Dose 24 MCG; Start 09/01/18 at 21:00 Polyethylene Glycol (Miralax) 17 gm DAILY GTB Last administered on 09/04/18 09:58; Admin Dose 17 GM; Start 09/02/18 at 09:00 Bumetanide (Bumex) 1 mg DAILY PO Last administered on 09/04/18 09:56; Admin Dose 1 MG; Start 09/01/18 at 12:00 Magnesium Chloride (Mag 64) 128 mg BID PO Last administered on 09/04/18 12:41; Admin Dose 128 MG; Start 09/04/18 at 10:00 Assessment/Plan Additional Assessment/Plan Rehab- Critical Illness Myopathy Progressing well Cardiac- s/p CABG Pulm-s/p resp failure-overall improved DM2 Hypertension Lumbar radiculopathy A/CKD- improving YARIEL MARIE MD September 04, 2018 13:14
[2018-09-04 15:00] VITALS: BP 108/55; PULSE 68; RESP 18
--- NOTE | 2018-09-04 15:27 | CONS ---
Assessment/Plan Assessment/Plan Assessment/Plan (Daily) 1. acute kidney injury vs possible baseline CKD II due to ishcemic ATN + Hemodynamics 2. 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 H/o HTN 4. H/o HL 5. H/o DM II 6. H/o CAD with previous stent placement 7. Anemia of chronic disease with iron deficiency s/p 5 days of IV iron Plan: BUN/Cr 18/1.43, magnesium level 1.6- magnesium sulfate 2 gram IV x 1 given Continue bumex 1 mg po daily, Today Bumex 2 mg pO x 1 extra dose given amlodipine 5 mg po daily, Eliquis 5mg pO BID , Coreg 6.25 mg bID, Plavix 75 mg po daily will follow up Consultation Date/Type/Reason Admit Date/Time August 21, 2018 at 18:31 Initial Consult Date Type of Consult NEPHROLOGY Requesting Provider: NERIS BROTHERS MD Date/Time of Note DATE: 09/04/18 TIME: 15:27 Exam/Review of Systems Exam Vitals Vital Signs Date Temp Pulse Resp B/P (MAP) Pulse Ox O2 O2 Flow FiO2 Time Delivery Rate 09/04/18 98.1 68 18 108/55 92 Room Air 15:00 (72) 09/04/18 2.0 01:30 09/03/18 21 20:22 Intake and Output 09/03/18 09/03/18 09/04/18 1515:00 23:00 07:00 IntakeIntake Total 700 ml OutputOutput Total 650 ml 870 ml BalanceBalance -650 ml -170 ml Exam Constitutional: alert, awake, no acute distress Respiratory: clear to auscultation, normal air movement, diminished breath sounds Cardiovascular: regular rate and rhythm, nl pulses Gastrointestinal: soft, non-tender Musculoskeletal: nl extremities to inspection Extremities: normal pulses Results Result Diagram: 09/04/18 0556 09/04/18 0554 Results 24hrs Laboratory Tests Test 09/03/18 17:37 09/03/18 21:29 09/04/18 05:54 09/04/18 05:56 Bedside Glucose 113 120 Sodium Level 140 Potassium Level 3.9 Chloride Level 102 Carbon Dioxide Level 32 H Anion Gap 6 Blood Urea Nitrogen 18 Creatinine 1.43 H Est Glomerular Filtrat Rate mL/min Glucose Level 97 Calcium Level 8.4 Total Bilirubin 0.6 Direct Bilirubin 0.00 Indirect Bilirubin 0.6 Aspartate Amino 49 H Transf (AST/SGOT) Alanine 88 H Aminotransferase (AL T/SGPT) Alkaline Phosphatase 238 H Total Protein 6.4 Albumin 3.1 L Globulin 3.30 H Albumin/Globulin 0.93 Ratio White Blood Count 4.2 L Red Blood Count 2.96 L Hemoglobin 8.5 L Hematocrit 27.2 L Mean Corpuscular 91.9 Volume Mean Corpuscular 28.7 L Hemoglobin Mean Corpuscular 31.3 L Hemoglobin Concent Red Cell 14.8 H Distribution Width Platelet Count 182 Mean Platelet Volume 10.8 H Immature 0.500 H Granulocytes % Neutrophils % 56.3 Lymphocytes % 24.6 Monocytes % 13.0 H Eosinophils % 5.1 Basophils % 0.5 Nucleated Red Blood 0.0 Cells % Immature 0.020 Granulocytes # Neutrophils # 2.3 Lymphocytes # 1.0 Monocytes # 0.5 Eosinophils # 0.2 Basophils # 0.0 Nucleated Red Blood 0.0 Cells # Magnesium Level 1.5 L Iron Level 49 Total Iron Binding 232 L Capacity Percent Iron 21 L Saturation Test 09/04/18 07:56 09/04/18 12:28 Bedside Glucose 109 155 Medications Medication Current Medications Ondansetron HCl (Zofran Inj) 4 mg Q6H PRN IV NAUSEA AND/OR VOMITING; Start 08/21/18 at 21:08 Clopidogrel Bisulfate (plaVIX) 75 mg DAILY NGT Last administered on 09/04/18at 09:55; Admin Dose 75 MG; Start 08/21/18 at 21:08 Levalbuterol (Xopenex Neb) 1.25 mg Q6H RESP THERAPY HHN Last administered on 09/03/18at 20:22; Admin Dose 1.25 MG; Start 08/21/18 at 21:08 Ipratropium [place] (Atrovent 0.02% (Neb)) 0.5 mg Q6H RESP THERAPY HHN Last administered on 09/03/18at 20:22; Admin Dose 0.5 MG; Start 08/21/18 at 21:08 Diagnostic Test (Pha) (Accu-Chek) 1 ea 02 XX Last administered on 09/04/18at 02:24; Admin Dose 1 EA; Start 08/21/18 at 21:08 Miscellaneous Information 1 ea NOTE XX ; Start 08/21/18 at 21:08 Glucose (Glutose) 15 gm Q15M PRN PO DECREASED GLUCOSE; Start 08/21/18 at 21:08 Glucose (Glutose) 22.5 gm Q15M PRN PO DECREASED GLUCOSE; Start 08/21/18 at 21:08 Dextrose (D50w Syringe) 25 ml Q15M PRN IV DECREASED GLUCOSE; Start 08/21/18 at 21:08 Dextrose (D50w Syringe) 50 ml Q15M PRN IV DECREASED GLUCOSE; Start 08/21/18 at 21:08 Glucagon (Glucagen) 1 mg Q15M PRN IM DECREASED GLUCOSE; Start 08/21/18 at 21:08 Glucose (Glutose) 15 gm Q15M PRN BUCCAL DECREASED GLUCOSE; Start 08/21/18 at 21:08 Famotidine (Pepcid) 20 mg DAILY PO Last administered on 09/04/18 09:56; Admin Dose 20 MG; Start 08/21/18 at 21:08 Insulin Aspart (Novolog Insulin Pen) 10 unit WITH MEALS SC Last administered on 09/04/18 12:34; Admin Dose 10 UNIT; Start 08/21/18 at 21:08 Insulin Aspart (Novolog Insulin Pen) NOVOLOG *MODERATE* ALGORITHM WITH MEALS BEDTIME SC Last administered on 09/04/18 12:34; Admin Dose 2 UNIT; Start 08/21/18 at 21:08 Oxycodone/ Acetaminophen (Endocet (10/ 325)) 1 tab Q4H PRN PO MODERATE PAIN LEVEL 4-6 Last administered on 08/31/18 14:29; Admin Dose 1 TAB; Start 08/21/18 at 21:08 Hydralazine HCl (Apresoline) 10 mg Q4H PRN IV SBP >150; Start 08/21/18 at 21:30 Acetaminophen (Tylenol Tab) 650 mg Q3H PRN PO ELEVATED TEMPERATURE Last admini stered on 08/26/18 15:46; Admin Dose 650 MG; Start 08/21/18 at 22:00 Ascorbic Acid (Vitamin C) 500 mg TID NGT Last administered on 09/04/18 12:41; Admin Dose 500 MG; Start 08/21/18 at 21:49 Carvedilol (Coreg) 12.5 mg BID PO Last administered on 09/04/18 09:58; Admin Dose 12.5 MG; Start 08/21/18 at 21:51 Docusate Sodium (Colace) 250 mg BID PO Last administered on 09/04/18 09:55; Admin Dose 250 MG; Start 08/21/18 at 21:51 Amlodipine Besylate (Norvasc) 5 mg DAILY PO Last administered on 09/04/18 10:02; Admin Dose 5 MG; Start 08/22/18 at 09:00 Magnesium Hydroxide (Milk Of Mag) 30 ml BID PRN PO CONSTIPATION Last administered on 09/01/18 14:48; Admin Dose 30 ML; Start 08/22/18 at 11:00 Lactulose (Enulose) 20 gm DAILY PRN PO CONSTIPATION Last administered on 08/22/18 12:44; Admin Dose 20 GM; Start 08/22/18 at 11:00 Bisacodyl (Dulcolax Supp) 10 mg DAILY PRN [place] CONSTIPATION; Start 08/22/18 at 11:00 Morphine Sulfate (morphine) 1 mg Q6H PRN IV SEVERE PAIN LEVEL 7-10; Start 08/23/18 at 07:00 Nitroglycerin (Nitroglycerin (Sl Tab) 0.4 Mg) 1 tab Q5M PRN SL ANGINA; Start 08/24/18 at 11:30 Gabapentin (Neurontin) 100 mg TID PO Last administered on 09/04/18 12:41; Admin Dose 100 MG; Start 08/25/18 at 13:00 Polyethylene Glycol (Miralax) 17 gm TID PRN PO CONSTIPATION; Start 08/25/18 at 12:00 Insulin Glargine (Lantus) 28 units 2100 SC Last administered on 09/03/18 21:32; Admin Dose 28 UNITS; Start 08/26/18 at 21:00 Hydromorphone HCl (Dilaudid) 1 mg Q3 PRN IV SEVERE PAIN LEVEL 7-10 Last admi nistered on 09/04/18 12:59; Admin Dose 1 MG; Start 08/27/18 at 13:00 Apixaban (Eliquis) 5 mg BID PO Last administered on 09/04/18 09:57; Admin Dose 5 MG; Start 08/29/18 at 11:00 Polysaccharide Iron Complex (Niferex-150) 1 cap BID PO Last administered on 09/04/18 09:56; Admin Dose 1 CAP; Start 09/01/18 at 09:00 Lubiprostone (Amitiza) 24 mcg BID PO Last administered on 09/04/18 09:55; Admin Dose 24 MCG; Start 09/01/18 at 21:00 Polyethylene Glycol (Miralax) 17 gm DAILY GTB Last administered on 09/04/18 09:58; Admin Dose 17 GM; Start 09/02/18 at 09:00 Bumetanide (Bumex) 1 mg DAILY PO Last administered on 09/04/18 09:56; Admin Dose 1 MG; Start 09/01/18 at 12:00 Magnesium Chloride (Mag 64) 128 mg BID PO Last administered on 09/04/18 12:41; Admin Dose 128 MG; Start 09/04/18 at 10:00 Atorvastatin Calcium (Lipitor) 40 mg HS PO ; Start 09/04/18 at 21:00 DARRYL SOOD MD September 04, 2018 15:27
--- NOTE | 2018-09-04 16:51 | CONS ---
Assessment/Plan Assessment/Plan Hospital Course (Demo Recall) Acute on chronic diastolic CHF: Improving slowly but still decompensated Pancreatitis:had an episode few months ago and was hospitalized at [facility]. No gallstones at that time. Not a drinker, TG ok in the past. Possibly sludge/small stones. Resolved based on symptoms and lipase Transaminitis: due to above.Improved, then worse, now better again NSTEMI: residual trop elevation likely from CABG. Trend does not suggest ACS. No symptoms. Ankle pain: XR without fracture. Improving Acute on chronic renal failure: Cr baseline 1.6. Worse after CABG.Now back to baseline Cardiogenic shock: Transient post op Acute respiratory failure: s/p extubation 08/16 Anemia: from operative blood loss. Required one unit. No active bleeding s/p CABG x5 08/13/18: WINN to LAD, SVG to ramus sequence to obtuse marginal a rtery, SVG to PDA, SVG to left ventricular extension branch. Difficult case per Dr. Howell with poor targets. CAD: s/p multiple prior PCIs. Cath 08/11/18 with multivessel disease. s/p CABG above Recent left femoral DVT: on Eliquis as outpt. DM HT HL -bumex 2mg extra dose today -replete Mg -bumex 1mg daily -restart lipitor 40mg -Eliquis 5mg BID -continue plavix -coreg 12.5mg BID -amlodipine 5mg Consultation Date/Type/Reason Admit Date/Time August 21, 2018 at 18:31 Initial Consult Date Type of Consult Cardiology Requesting Provider: NERIS BROTHERS MD Date/Time of Note DATE: 09/04/18 TIME: 16:49 24 HR Interval Summary Free Text/Dictation No events. Possible d/c tomorrow Exam/Review of Systems Vital Signs Vitals Vital Signs Date Temp Pulse Resp B/P (MAP) Pulse Ox O2 O2 Flow FiO2 Time Delivery Rate 09/04/18 98.1 68 18 108/55 92 Room Air 15:00 (72) 09/04/18 2.0 01:30 09/03/18 21 20:22 Intake and Output 09/03/18 09/03/18 09/04/18 1515:00 23:00 07:00 IntakeIntake Total 700 ml OutputOutput Total 650 ml 870 ml BalanceBalance -650 ml -170 ml Exam Constitutional: alert, oriented Head: normocephalic, atraumatic Neck: jvd (9cm) Respiratory: crackles/rales; No clear to auscultation Cardiovascular: regular rate and rhythm, edema (1+) Gastrointestinal: soft, non-tender; No distended 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: nl mental status, nl speech Labs Result Diagram: 09/04/18 0556 09/04/18 0554 Results 24hrs Laboratory Tests Test 09/03/18 17:37 09/03/18 21:29 09/04/18 05:54 09/04/18 05:56 Bedside Glucose 113 120 Sodium Level 140 Potassium Level 3.9 Chloride Level 102 Carbon Dioxide Level 32 H Anion Gap 6 Blood Urea Nitrogen 18 Creatinine 1.43 H Est Glomerular Filtrat Rate mL/min Glucose Level 97 Calcium Level 8.4 Total Bilirubin 0.6 Direct Bilirubin 0.00 Indirect Bilirubin 0.6 Aspartate Amino 49 H Transf (AST/SGOT) Alanine 88 H Aminotransferase (AL T/SGPT) Alkaline Phosphatase 238 H Total Protein 6.4 Albumin 3.1 L Globulin 3.30 H Albumin/Globulin 0.93 Ratio White Blood Count 4.2 L Red Blood Count 2.96 L Hemoglobin 8.5 L Hematocrit 27.2 L Mean Corpuscular 91.9 Volume Mean Corpuscular 28.7 L Hemoglobin Mean Corpuscular 31.3 L Hemoglobin Concent Red Cell 14.8 H Distribution Width Platelet Count 182 Mean Platelet Volume 10.8 H Immature 0.500 H Granulocytes % Neutrophils % 56.3 Lymphocytes % 24.6 Monocytes % 13.0 H Eosinophils % 5.1 Basophils % 0.5 Nucleated Red Blood 0.0 Cells % Immature 0.020 Granulocytes # Neutrophils # 2.3 Lymphocytes # 1.0 Monocytes # 0.5 Eosinophils # 0.2 Basophils # 0.0 Nucleated Red Blood 0.0 Cells # Magnesium Level 1.5 L Iron Level 49 Total Iron Binding 232 L Capacity Percent Iron 21 L Saturation Test 09/04/18 07:56 09/04/18 12:28 Bedside Glucose 109 155 Medications Medications Current Medications Ondansetron HCl (Zofran Inj) 4 mg Q6H PRN IV NAUSEA AND/OR VOMITING; Start 08/21/18 at 21:08 Clopidogrel Bisulfate (plaVIX) 75 mg DAILY NGT Last administered on 09/04/18 09:55; Admin Dose 75 MG; Start 08/21/18 at 21:08 Levalbuterol (Xopenex Neb) 1.25 mg Q6H RESP THERAPY HHN Last administered on 09/03/18 20:22; Admin Dose 1.25 MG; Start 08/21/18 at 21:08 Ipratropium [place] (Atrovent 0.02% (Neb)) 0.5 mg Q6H RESP THERAPY HHN Last administered on 09/03/18 20:22; Admin Dose 0.5 MG; Start 08/21/18 at 21:08 Diagnostic Test (Pha) (Accu-Chek) 1 ea 02 XX Last administered on 09/04/18 02:24; Admin Dose 1 EA; Start 08/21/18 at 21:08 Miscellaneous Information 1 ea NOTE XX ; Start 08/21/18 at 21:08 Glucose (Glutose) 15 gm Q15M PRN PO DECREASED GLUCOSE; Start 08/21/18 at 21:08 Glucose (Glutose) 22.5 gm Q15M PRN PO DECREASED GLUCOSE; Start 08/21/18 at 21:08 Dextrose (D50w Syringe) 25 ml Q15M PRN IV DECREASED GLUCOSE; Start 08/21/18 at 21:08 Dextrose (D50w Syringe) 50 ml Q15M PRN IV DECREASED GLUCOSE; Start 08/21/18 at 21:08 Glucagon (Glucagen) 1 mg Q15M PRN IM DECREASED GLUCOSE; Start 08/21/18 at 21:08 Glucose (Glutose) 15 gm Q15M PRN BUCCAL DECREASED GLUCOSE; Start 08/21/18 at 21:08 Famotidine (Pepcid) 20 mg DAILY PO Last administered on 09/04/18 09:56; Admin Dose 20 MG; Start 08/21/18 at 21:08 Insulin Aspart (Novolog Insulin Pen) 10 unit WITH MEALS SC Last administered on 09/04/18 12:34; Admin Dose 10 UNIT; Start 08/21/18 at 21:08 Insulin Aspart (Novolog Insulin Pen) NOVOLOG *MODERATE* ALGORITHM WITH MEALS BEDTIME SC Last administered on 09/04/18 12:34; Admin Dose 2 UNIT; Start 08/21/18 at 21:08 Oxycodone/ Acetaminophen (Endocet (10/ 325)) 1 tab Q4H PRN PO MODERATE PAIN LEVEL 4-6 Last administered on 08/31/18 14:29; Admin Dose 1 TAB; Start 08/21/18 at 21:08 Hydralazine HCl (Apresoline) 10 mg Q4H PRN IV SBP >150; Start 08/21/18 at 21:30 Acetaminophen (Tylenol Tab) 650 mg Q3H PRN PO ELEVATED TEMPERATURE Last administered on 08/26/18 15:46; Admin Dose 650 MG; Start 08/21/18 at 22:00 Ascorbic Acid (Vitamin C) 500 mg TID NGT Last administered on 09/04/18 12:41; Admin Dose 500 MG; Start 08/21/18 at 21:49 Carvedilol (Coreg) 12.5 mg BID PO Last administered on 09/04/18 09:58; Admin Dose 12.5 MG; Start 08/21/18 at 21:51 Docusate Sodium (Colace) 250 mg BID PO Last administered on 09/04/18 09:55; Admin Dose 250 MG; Start 08/21/18 at 21:51 Amlodipine Besylate (Norvasc) 5 mg DAILY PO Last administered on 09/04/18 10: 02; Admin Dose 5 MG; Start 08/22/18 at 09:00 Magnesium Hydroxide (Milk Of Mag) 30 ml BID PRN PO CONSTIPATION Last administered on 09/01/18 14:48; Admin Dose 30 ML; Start 08/22/18 at 11:00 Lactulose (Enulose) 20 gm DAILY PRN PO CONSTIPATION Last administered on 08/22/18 12:44; Admin Dose 20 GM; Start 08/22/18 at 11:00 Bisacodyl (Dulcolax Supp) 10 mg DAILY PRN [place] CONSTIPATION; Start 08/22/18 at 11:00 Morphine Sulfate (morphine) 1 mg Q6H PRN IV SEVERE PAIN LEVEL 7-10; Start 08/23/18 at 07:00 Nitroglycerin (Nitroglycerin (Sl Tab) 0.4 Mg) 1 tab Q5M PRN SL ANGINA; Start 08/24/18 at 11:30 Gabapentin (Neurontin) 100 mg TID PO Last administered on 09/04/18 12:41; Admin Dose 100 MG; Start 08/25/18 at 13:00 Polyethylene Glycol (Miralax) 17 gm TID PRN PO CONSTIPATION; Start 08/25/18 at 12:00 Insulin Glargine (Lantus) 28 units 2100 SC Last administered on 09/03/18 21:32; Admin Dose 28 UNITS; Start 08/26/18 at 21:00 Hydromorphone HCl (Dilaudid) 1 mg Q3 PRN IV SEVERE PAIN LEVEL 7-10 Last administered on 09/04/18 12:59; Admin Dose 1 MG; Start 08/27/18 at 13:00 Apixaban (Eliquis) 5 mg BID PO Last administered on 09/04/18 09:57; Admin Dose 5 MG; Start 08/29/18 at 11:00 Polysaccharide Iron Complex (Niferex-150) 1 cap BID PO Last administered on 09/04/18 09:56; Admin Dose 1 CAP; Start 09/01/18 at 09:00 Lubiprostone (Amitiza) 24 mcg BID PO Last administered on 09/04/18 09:55; Admin Dose 24 MCG; Start 09/01/18 at 21:00 Polyethylene Glycol (Miralax) 17 gm DAILY GTB Last administered on 09/04/18 09:58; Admin Dose 17 GM; Start 09/02/18 at 09:00 Bumetanide (Bumex) 1 mg DAILY PO Last administered on 09/04/18 09:56; Admin Dose 1 MG; Start 09/01/18 at 12:00 Magnesium Chloride (Mag 64) 128 mg BID PO Last administered on 09/04/18 12:41; Admin Dose 128 MG; Start 09/04/18 at 10:00 Atorvastatin Calcium (Lipitor) 40 mg HS PO ; Start 09/04/18 at 21:00 ALONDRA GILBERT September 04, 2018 16:51
[2018-09-04] MEDS ORDERED: BUMETANIDE 1 MG TAB PO ONE (17:00)
[2018-09-04] MEDS ORDERED: MAGNESIUM SULFATE 2 GM/50 ML 50 ML IVPB ONE (17:00)
[2018-09-04 18:00] VITALS: BP 125/75; PULSE 78; RESP 18
[2018-09-04 19:46] VITALS: BP 132/67; PULSE 65; RESP 18
[2018-09-04] MEDS: ATORVASTATIN 40 MG TAB PO SCH (20:48)
[2018-09-04] MEDS: INSULIN GLARGINE [LANTus] (100 UNITS/ML) SYG SC SCH (21:11)
[2018-09-05 02:00] VITALS: BP 124/62; PULSE 70; RESP 18
[2018-09-05] MEDS: ACCU-CHEK XX SCH (02:00)
[2018-09-05] MEDS: IPRATROPIUM (NEB) 0.5 MG/2.5 ML AMP HHN SCH ×4 (02:00→20:00)
[2018-09-05] MEDS: LEVALBUTEROL (NEB) 1.25 MG/0.5 ML AMP HHN SCH ×4 (02:00→20:00)
[2018-09-05 07:00] VITALS: BP 125/72; PULSE 63; RESP 17
[2018-09-05] MEDS: INSULIN ASPART [NOVOLOG] 3 ML PEN SC SCH ×7 (07:35→21:00)
--- NOTE | 2018-09-05 08:54 | PN ---
Date/Time of Note Date/Time of Note DATE: 09/05/18 TIME: 08:51 Assessment/Plan VTE Prophylaxis Risk score (from Ns)>0 risk: 10 SCD applied (from Ns): No SCD contraindicated: other (on.) Pharmacological prophylaxis: LMWH Lines/Catheters IV Catheter Type (from [facility]): [place] [facility] line still needed: No Urinary Cath still in place: No Reason Cath still needed: urinary retention Assessment/Plan Assessment/Plan 1. Ischemic heart disease angina three-vessel coronary a. disease.s/p CABG x5 08/13/18: WINN to LAD, SVG to ramus sequence to obtuse marginal artery, SVG to PDA, SVG to left ventricular extension branch. Difficult case per Dr. Howell with poor targets.Vein harvesting and epiaortic scanning of the ascending aorta.CAD: s/p multiple prior PCIs. Cath 08/11/18 with multivessel disease. Now with elevated level of the troponin the second 1 is 1.1. We will get q. 6 hours x 2. The patient denies having the chest pain. 2. Hypertension with congestive heart failure diastolic- improved. 3. Diabetes mellitus type 2 blood sugar better controlled. Continue titration. 4. History of cholecystitis and pancreatitis. Elevation of liver function tests almost 10 to the normal continue follow-up will discuss Dr. Bill. 5. Acute on chronic kidney disease with baseline creatinine being 1.6 up to 3.5 came down to 2.05 yesterday and 1.95 today. Improved after hydration,now mildly dehydrated; 6. Dyslipidemia better controlled 7. History of nasal bleeding recurrent- stable. 8. Morbid obesity with snoring and apnea and daytime sleepiness 9. BPH with nocturia 10. Low back pain with radiculopathy 11. 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 Status post cataract ectomy 13. Diabetic nephropathy retinopathy and angiopathy and neuropathy. 14. Constipation- improved. 15. Grief reaction after the of her 16. Gastroesophageal reflux disease 17. Deep venous thrombosis of the left saphenous vein, 2-3 months ago;was on Eliquis 5 mg twice daily, stopped: since 08/11/2018. 18. Gastritis 19. COPD. Quit smoking 10years ago. 02sat now 95% with persistent cough. 20. History of nephrolithiasis. 21. Drop of hematocrit; s/p 2 units of prbc tx. today level is 25. 22. Drop of albumone and total protein and mild elevation of lft's. 21. Drop of hematocrit; s/p 2 units of prbc tx. further decline today; hematocrit being the 25 recheck tomorrow. 22. Elevation of alkaline phosphatase and mild elevation of lft's. Result Diagram: 09/04/18 0556 09/04/18 0554 Results 24hrs Laboratory Tests Test 09/04/18 12:28 09/04/18 17:05 09/04/18 20:55 09/05/18 02:31 Bedside Glucose 155 213 221 H 155 Test 09/05/18 08:11 Bedside Glucose 134 Subjective 24 Hr Interval Summary Free Text/Dictation anorexia, ruq pain on and off, weakness. No f/c, no melena. Constitutional: improved, chills, poor po, requiring IVF; No no complaints, No diaphoresis, No disoriented, No febrile, No requiring O2, No other Eyes: No no complaints, No pain, No discharge, No redness, No visual change, No other ENT: pain, congestion; No no complaints, No bleeding, No discharge, No dysphagia, No sore throat, No other Respiratory: cough, pleuritic pain, shortness of breath; No no complaints, No pain, No sputum, No wheezing, No other Cardiovascular: chest pain; No no complaints, No edema, No lightheadedness, No orthopenea, No palpitations, No paroxysmal nocturnal dyspnea, No other Gastrointestinal: constipation, decreased appetite, flatus, nausea; No no complaints, No pain, No blood, No diarrhea, No passing stool, No vomiting, No other Genitourinary: dysuria; No no complaints, No bleeding, No discharge, No flank pain, No hematuria, No other Musculoskeletal: back pain, bone/joint pain, neck pain; No no complaints, No restricted range of motion, No swelling, No other Skin: No no complaints, No bruising, No erythema, No laceration, No pruritis, No rash, No skin lesions, No other Neurologic: confusion; No no complaints, No dizziness, No focal-weakness, No headache, No syncope, No seizure, No other Endocrine: No no complaints, No polyuria, No polydypsia, No dry skin, No temp intolerance, No other Lymphatic: No no complaints, No adenopathy, No tender nodes, No lymphadema, No other Exam/Review of Systems Exam Vitals Vital Signs Date Temp Pulse Resp B/P (MAP) Pulse Ox O2 O2 Flow FiO2 Time Delivery Rate 09/05/18 2.0 02:35 09/05/18 97.8 70 18 124/62 95 Room Air 02:00 (82) 09/03/18 21 20:22 Intake and Output 09/04/18 09/04/18 09/05/18 1414:59 22:59 06:59 IntakeIntake Total 740 ml 1000 ml OutputOutput Total 1400 ml 300 ml BalanceBalance 740 ml -400 ml -300 ml Constitutional: alert, oriented, well developed, distress, frail; No non-verbal, No obese, No other Psych: anxiety; No no complaints, No nl mood/affect, No confusion, No depression, No suicidal, No other Head: normocephalic, atraumatic; No lacerations, No hematomas, No other Eyes: EOMI, nl lids; No nl conjunctiva, No nl sclera, No PERRL, No icteric, No fundi, disc, No other ENMT: No nl external ears & nose, No nl lips & teeth, No nl nasal mucosa & septum, No mucosa pink and moist, No intubated, No tympanic membranes, No other Neck: jvd; No supple, No non-tender, No bruits, No masses, No thyromegaly, No nuchal rigidity, No other Respiratory: congested cough, crackles/rales; No clear to auscultation, No normal air movement, No diminished breath sounds, No intercostal retraction, No labored breathing, No respirations, No tactile fremitus, No wheezing, No other Cardiovascular: regular rate and rhythm, bruits, edema, systolic murmur; No nl pulses, No diastolic murmur, No gallop, No irregular rhythm, No jugular venous distention (JVD), No murmurs/extra sounds, No rub, No S3, No S4, No other Gastrointestinal: soft, nl liver, spleen, distended, rebound or guarding; No non-tender, No ascites, No bowel sounds, No firm, No hepatomegaly, No mass, No splenomegaly, No surgical scars, No tender, No other Genitourinary - Male: nl penis, nl scrotum; No CVA tenderness, No discharge, No other Musculoskeletal: No nl extremities to inspection, No nl gait and stance, No joint tenderness, No muscle tone, No muscle weakness, No range of motion, No spine non-tender, No swelling, No other Extremities: No normal pulses, No calf tenderness, No cyanosis, No clubbing, No edema, No pitting pedal edema, No palpable cord, No tenderness, No other 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: No [employer] II-XII intact, No nl mental status, No nl speech, No nl strength, No confused, No DTR's symmetric, No focal weakness, No lethargic, No numbness, No reflexes, No unresponsive, No other Results Results 24hrs Laboratory Tests Test 09/04/18 12:28 09/04/18 17:05 09/04/18 20:55 09/05/18 02:31 Bedside Glucose 155 213 221 H 155 Test 09/05/18 08:11 Bedside Glucose 134 Medications Medication Current Medications Ondansetron HCl (Zofran Inj) 4 mg Q6H PRN IV NAUSEA AND/OR VOMITING; Start 08/21/18 at 21:08 Clopidogrel Bisulfate (plaVIX) 75 mg DAILY NGT Last administered on 09/04/18at 09:55; Admin Dose 75 MG; Start 08/21/18 at 21:08 Levalbuterol (Xopenex Neb) 1.25 mg Q6H RESP THERAPY HHN Last administered on 09/03/18at 20:22; Admin Dose 1.25 MG; Start 08/21/18 at 21:08 Ipratropium [place] (Atrovent 0.02% (Neb)) 0.5 mg Q6H RESP THERAPY HHN Last administered on 09/03/18at 20:22; Admin Dose 0.5 MG; Start 08/21/18 at 21:08 Diagnostic Test (Pha) (Accu-Chek) 1 ea 02 XX Last administered on 09/04/18at 02:24; Admin Dose 1 EA; Start 08/21/18 at 21:08 Miscellaneous Information 1 ea NOTE XX ; Start 08/21/18 at 21:08 Glucose (Glutose) 15 gm Q15M PRN PO DECREASED GLUCOSE; Start 08/21/18 at 21:08 Glucose (Glutose) 22.5 gm Q15M PRN PO DECREASED GLUCOSE; Start 08/21/18 at 21:08 Dextrose (D50w Syringe) 25 ml Q15M PRN IV DECREASED GLUCOSE; Start 08/21/18 at 21:08 Dextrose (D50w Syringe) 50 ml Q15M PRN IV DECREASED GLUCOSE; Start 08/21/18 at 21:08 Glucagon (Glucagen) 1 mg Q15M PRN IM DECREASED GLUCOSE; Start 08/21/18 at 21:08 Glucose (Glutose) 15 gm Q15M PRN BUCCAL DECREASED GLUCOSE; Start 08/21/18 at 21:08 Famotidine (Pepcid) 20 mg DAILY PO Last administered on 09/04/18 09:56; Admin Dose 20 MG; Start 08/21/18 at 21:08 Insulin Aspart (Novolog Insulin Pen) 10 unit WITH MEALS SC Last administered on 09/05/18 08:13; Admin Dose 10 UNIT; Start 08/21/18 at 21:08 Insulin Aspart (Novolog Insulin Pen) NOVOLOG *MODERATE* ALGORITHM WITH MEALS BEDTIME SC Last administered on 09/04/18 21:10; Admin Dose 2 UNIT; Start 08/21/18 at 21:08 Oxycodone/ Acetaminophen (Endocet (10/ 325)) 1 tab Q4H PRN PO MODERATE PAIN LEVEL 4-6 Last administered on 08/31/18 14:29; Admin Dose 1 TAB; Start 08/21/18 at 21:08 Hydralazine HCl (Apresoline) 10 mg Q4H PRN IV SBP >150; Start 08/21/18 at 21:30 Acetaminophen (Tylenol Tab) 650 mg Q3H PRN PO ELEVATED TEMPERATURE Last administered on 08/26/18 15:46; Admin Dose 650 MG; Start 08/21/18 at 22:00 Ascorbic Acid (Vitamin C) 500 mg TID NGT Last administered on 09/04/18 20:49; Admin Dose 500 MG; Start 08/21/18 at 21:49 Carvedilol (Coreg) 12.5 mg BID PO Last administered on 09/04/18 20:50; Admin Dose 12.5 MG; Start 08/21/18 at 21:51 Docusate Sodium (Colace) 250 mg BID PO Last administered on 09/04/18 20:47; Admin Dose 250 MG; Start 08/21/18 at 21:51 Amlodipine Besylate (Norvasc) 5 mg DAILY PO Last administered on 09/04/18 10:02; Admin Dose 5 MG; Start 08/22/18 at 09:00 Magnesium Hydroxide (Milk Of Mag) 30 ml BID PRN PO CONSTIPATION Last administered on 09/01/18 14:48; Admin Dose 30 ML; Start 08/22/18 at 11:00 Lactulose (Enulose) 20 gm DAILY PRN PO CONSTIPATION Last administered on 08/22/18 12:44; Admin Dose 20 GM; Start 08/22/18 at 11:00 Bisacodyl (Dulcolax Supp) 10 mg DAILY PRN [place] CONSTIPATION; Start 08/22/18 at 11:00 Morphine Sulfate (morphine) 1 mg Q6H PRN IV SEVERE PAIN LEVEL 7-10; Start 08/23/18 at 07:00 Nitroglycerin (Nitroglycerin (Sl Tab) 0.4 Mg) 1 tab Q5M PRN SL ANGINA; Start 08/24/18 at 11:30 Gabapentin (Neurontin) 100 mg TID PO Last administered on 09/04/18 20:48; Admin Dose 100 MG; Start 08/25/18 at 13:00 Polyethylene Glycol (Miralax) 17 gm TID PRN PO CONSTIPATION; Start 08/25/18 at 12:00 Insulin Glargine (Lantus) 28 units 2100 SC Last administered on 09/04/18 21:11; Admin Dose 28 UNITS; Start 08/26/18 at 21:00 Hydromorphone HCl (Dilaudid) 1 mg Q3 PRN IV SEVERE PAIN LEVEL 7-10 Last administered on 09/04/18 17:44; Admin Dose 1 MG; Start 08/27/18 at 13:00 Apixaban (Eliquis) 5 mg BID PO Last administered on 09/04/18 20:48; Admin Dose 5 MG; Start 08/29/18 at 11:00 Polysaccharide Iron Complex (Niferex-150) 1 cap BID PO Last administered on 09/04/18 20:48; Admin Dose 1 CAP; Start 09/01/18 at 09:00 Lubiprostone (Amitiza) 24 mcg BID PO Last administered on 09/04/18 20:49; Admin Dose 24 MCG; Start 09/01/18 at 21:00 Polyethylene Glycol (Miralax) 17 gm DAILY GTB Last administered on 09/04/18 09:58; Admin Dose 17 GM; Start 09/02/18 at 09:00 Bumetanide (Bumex) 1 mg DAILY PO Last administered on 09/04/18 09:56; Admin Dose 1 MG; Start 09/01/18 at 12:00 Magnesium Chloride (Mag 64) 128 mg BID PO Last administered on 09/04/18 20:48; Admin Dose 128 MG; Start 09/04/18 at 10:00 Atorvastatin Calcium (Lipitor) 40 mg HS PO Last administered on 09/04/18 20:48; Admin Dose 40 MG; Start 09/04/18 at 21:00 NERIS BROTHERS MD September 05, 2018 08:54
[2018-09-05] MEDS: POLYETHYLENE GLYCOL 17 GM PACKET GTB SCH (10:55)
[2018-09-05] MEDS: ASCORBIC ACID 500 MG TAB NGT SCH ×3 (10:55→21:15)
[2018-09-05] MEDS: FAMOTIDINE 20 MG TAB PO SCH (10:55)
[2018-09-05] MEDS: LUBIPROSTONE 24 MCG CAP PO SCH ×2 (10:55→21:15)
[2018-09-05] MEDS: MAGNESIUM CHLORIDE (SR) 64 MG TAB PO SCH ×2 (10:55→21:15)
[2018-09-05] MEDS: DOCUSATE SODIUM 250 MG CAP PO SCH ×2 (10:55→21:15)
[2018-09-05] MEDS: APIXABAN 5 MG TABLET PO SCH ×2 (10:55→21:15)
[2018-09-05] MEDS: CLOPIDOGREL 75 MG TAB NGT SCH (10:55)
[2018-09-05] MEDS: BUMETANIDE 1 MG TAB PO SCH (10:55)
[2018-09-05] MEDS: POLYSACCHARIDE IRON COMPLEX CAP PO SCH ×2 (10:56→21:15)
[2018-09-05] MEDS: AMLODIPINE 5 MG TAB PO SCH (10:56)
[2018-09-05] MEDS: GABAPENTIN 100 MG CAP PO SCH ×3 (10:56→21:15)
--- NOTE | 2018-09-05 11:20 | CONS ---
Assessment/Plan Assessment/Plan Assessment/Plan (Daily) 1. acute kidney injury vs possible baseline CKD II due to ishcemic ATN + Hemodynamics 2. 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 H/o HTN 4. H/o HL 5. H/o DM II 6. H/o CAD with previous stent placement 7. Anemia of chronic disease with iron deficiency s/p 5 days of IV iron Plan: BUN/Cr 18/1.43, AM BMP ordred Continue bumex 1 mg po daily, amlodipine 5 mg po daily, Eliquis 5mg pO BID , Coreg 6.25 mg bID, Plavix 75 mg po daily will follow up Consultation Date/Type/Reason Admit Date/Time August 21, 2018 at 18:31 Initial Consult Date Type of Consult NEPHROLOGY Requesting Provider: NERIS BROTHERS MD Date/Time of Note DATE: 09/05/18 TIME: 11:20 Exam/Review of Systems Exam Vitals Vital Signs Date Temp Pulse Resp B/P (MAP) Pulse Ox O2 O2 Flow FiO2 Time Delivery Rate 09/05/18 66 20 92 Nasal 2.0 09:41 Cannula 09/05/18 98.3 125/72 07:00 (89) 09/03/18 21 20:22 Intake and Output 09/04/18 09/04/18 09/05/18 1515:00 23:00 07:00 IntakeIntake Total 740 ml 1000 ml OutputOutput Total 1400 ml 300 ml BalanceBalance 740 ml -400 ml -300 ml Exam Constitutional: alert, awake, no acute distress Respiratory: clear to auscultation, normal air movement, diminished breath sounds Cardiovascular: regular rate and rhythm, nl pulses Gastrointestinal: soft, non-tender Musculoskeletal: nl extremities to inspection Extremities: normal pulses Results Result Diagram: 09/04/18 0556 09/04/18 0554 Results 24hrs Laboratory Tests Test 09/04/18 12:28 09/04/18 17:05 09/04/18 20:55 09/05/18 02:31 Bedside Glucose 155 213 221 H 155 Test 09/05/18 08:11 Bedside Glucose 134 Medications Medication Current Medications Ondansetron HCl (Zofran Inj) 4 mg Q6H PRN IV NAUSEA AND/OR VOMITING; Start 08/21/18 at 21:08 Clopidogrel Bisulfate (plaVIX) 75 mg DAILY NGT Last administered on 09/05/18at 10:55; Admin Dose 75 MG; Start 08/21/18 at 21:08 Levalbuterol (Xopenex Neb) 1.25 mg Q6H RESP THERAPY HHN Last administered on 09/03/18 20:22; Admin Dose 1.25 MG; Start 08/21/18 at 21:08 Ipratropium [place] (Atrovent 0.02% (Neb)) 0.5 mg Q6H RESP THERAPY HHN Last administered on 09/03/18 20:22; Admin Dose 0.5 MG; Start 08/21/18 at 21:08 Diagnostic Test (Pha) (Accu-Chek) 1 ea 02 XX Last administered on 09/04/18at 02:24; Admin Dose 1 EA; Start 08/21/18 at 21:08 Miscellaneous Information 1 ea NOTE XX ; Start 08/21/18 at 21:08 Glucose (Glutose) 15 gm Q15M PRN PO DECREASED GLUCOSE; Start 08/21/18 at 21:08 Glucose (Glutose) 22.5 gm Q15M PRN PO DECREASED GLUCOSE; Start 08/21/18 at 21:08 Dextrose (D50w Syringe) 25 ml Q15M PRN IV DECREASED GLUCOSE; Start 08/21/18 at 21:08 Dextrose (D50w Syringe) 50 ml Q15M PRN IV DECREASED GLUCOSE; Start 08/21/18 at 21:08 Glucagon (Glucagen) 1 mg Q15M PRN IM DECREASED GLUCOSE; Start 08/21/18 at 21:08 Glucose (Glutose) 15 gm Q15M PRN BUCCAL DECREASED GLUCOSE; Start 08/21/18 at 21:08 Famotidine (Pepcid) 20 mg DAILY PO Last administered on 09/05/18at 10:55; Admin Dose 20 MG; Start 08/21/18 at 21:08 Insulin Aspart (Novolog Insulin Pen) 10 unit WITH MEALS SC Last administered on 09/05/18 08:13; Admin Dose 10 UNIT; Start 08/21/18 at 21:08 Insulin Aspart (Novolog Insulin Pen) NOVOLOG *MODERATE* ALGORITHM WITH MEALS BEDTIME SC Last administered on 09/04/18at 21:10; Admin Dose 2 UNIT; Start 08/21/18 at 21:08 Oxycodone/ Acetaminophen (Endocet (10/ 325)) 1 tab Q4H PRN PO MODERATE PAIN LEVEL 4-6 Last administered on 08/31/18 14:29; Admin Dose 1 TAB; Start 08/21/18 at 21:08 Hydralazine HCl (Apresoline) 10 mg Q4H PRN IV SBP >150; Start 08/21/18 at 21:30 Acetaminophen (Tylenol Tab) 650 mg Q3H PRN PO ELEVATED TEMPERATURE Last administered on 08/26/18 15:46; Admin Dose 650 MG; Start 08/21/18 at 22:00 Ascorbic Acid (Vitamin C) 500 mg TID NGT Last administered on 09/05/18 10:55; Admin Dose 500 MG; Start 08/21/18 at 21:49 Carvedilol (Coreg) 12.5 mg BID PO Last administered on 09/05/18 10:56; Admin Dose 12.5 MG; Start 08/21/18 at 21:51 Docusate Sodium (Colace) 250 mg BID PO Last administered on 09/05/18 10:55; Admin Dose 250 MG; Start 08/21/18 at 21:51 Amlodipine Besylate (Norvasc) 5 mg DAILY PO Last administered on 09/05/18 10:56; Admin Dose 5 MG; Start 08/22/18 at 09:00 Magnesium Hydroxide (Milk Of Mag) 30 ml BID PRN PO CONSTIPATION Last administered on 09/01/18 14:48; Admin Dose 30 ML; Start 08/22/18 at 11:00 Lactulose (Enulose) 20 gm DAILY PRN PO CONSTIPATION Last administered on 08/22/18 12:44; Admin Dose 20 GM; Start 08/22/18 at 11:00 Bisacodyl (Dulcolax Supp) [address] CONSTIPATION; Start 08/22/18 at 11:00 Morphine Sulfate (morphine) 1 mg Q6H PRN IV SEVERE PAIN LEVEL 7-10; Start 08/23/18 at 07:00 Nitroglycerin (Nitroglycerin (Sl Tab) 0.4 Mg) 1 tab Q5M PRN SL ANGINA; Start 08/24/18 at 11:30 Gabapentin (Neurontin) 100 mg TID PO Last administered on 09/05/18 10:56; Admin Dose 100 MG; Start 08/25/18 at 13:00 Polyethylene Glycol (Miralax) 17 gm TID PRN PO CONSTIPATION; Start 08/25/18 at 12:00 Insulin Glargine (Lantus) 28 units 2100 SC Last administered on 09/04/18 21:11; Admin Dose 28 UNITS; Start 08/26/18 at 21:00 Hydromorphone HCl (Dilaudid) 1 mg Q3 PRN IV SEVERE PAIN LEVEL 7-10 Last administered on 09/04/18 17:44; Admin Dose 1 MG; Start 08/27/18 at 13:00 Apixaban (Eliquis) 5 mg BID PO Last administered on 09/05/18 10:55; Admin Dose 5 MG; Start 08/29/18 at 11:00 Polysaccharide Iron Complex (Niferex-150) 1 cap BID PO Last administered on 09/05/18 10:56; Admin Dose 1 CAP; Start 09/01/18 at 09:00 Lubiprostone (Amitiza) 24 mcg BID PO Last administered on 09/05/18 10:55; Admin Dose 24 MCG; Start 09/01/18 at 21:00 Polyethylene Glycol (Miralax) 17 gm DAILY GTB Last administered on 09/05/18 10:55; Admin Dose 17 GM; Start 09/02/18 at 09:00 Bumetanide (Bumex) 1 mg DAILY PO Last administered on 09/05/18 10:55; Admin Dose 1 MG; Start 09/01/18 at 12:00 Magnesium Chloride (Mag 64) 128 mg BID PO Last administered on 09/05/18 10:55; Admin Dose 128 MG; Start 09/04/18 at 10:00 Atorvastatin Calcium (Lipitor) 40 mg HS PO Last administered on 09/04/18 20:48; Admin Dose 40 MG; Start 09/04/18 at 21:00 DARRYL SOOD MD September 05, 2018 11:20
--- NOTE | 2018-09-05 12:29 | CONS ---
Assessment/Plan Assessment/Plan Assessment/Plan (Daily) Consultation Assessment/Plan Assessment/Plan Assessment/Plan (Daily) Assessment/Plan Assessment/Plan Hospital Course (Demo Recall) 73 yo male with h/o severe coronary artery disease, s/p multi vessel CABG, is referred to GI to evaluate for abnormal LFTs 1. Pancreatitis, likely biliary -resolved 2. Transaminitis -elevated alk, alt, ast -monitor qd -limit hepatatoxic medications -pt may be passing granules or small stones, lfts are coming down again 3. Severe coronary artery disease, S/P multi vessel CABG recently - pr cardiology team 4. Diabetes mellitus -per primary team 5. Renal failure -per nephrology team 6. Iron deficiency anemia -monitor HH and for acute GI bleeding, pt is on eliquis and plavix 7. Obesity 8. HTN 9. DM2 10. Fatty liver 11. Hepatosplenomegaly US of liver: 1. Sludge is noted within the gallbladder. There is no gallbladder wall thickening or pericholecystic fluid to suggest acute cholecystitis. 2. No biliary duct dilatation. 3. Fatty change of the liver. 4. Hepatosplenomegaly. 5. Slightly increased bilateral renal cortical echogenicity suggest medical renal disease. 6. Questionable 1.4 cm echogenic cortical lesion in the right kidney without corresponding abnormality seen on the previous CT scan. This is likely artifactual CT of abd 09/01: 1. No evidence of pancreatitis. 2. Status post interval median sternotomy. 3. Small pericardial effusion. New since prior exam. 4. Left greater than right bilateral small pleural effusions with bibasilar compressive atelectasis. New since prior exam. 5. High-density sludge in the gallbladder. 6. Calcific atherosclerosis of the aorta and coronary arteries. Plan: Low fat diet Cardiology to evaluate new small pleural effusion seen on CT scan 09/01 Pt likely passed small stone Monitor LFTs, lipase and amylase Monitor HH and for GI bleeding Amitiza 24 mcg bid and miralax qd Consultation Date/Type/Reason Admit Date/Time August 21, 2018 at 18:31 Initial Consult Date Requesting Provider: NERIS BROTHERS MD Date/Time of Note DATE: 09/05/18 TIME: 12:28 24 HR Interval Summary Free Text/Dictation no more abdominal pain yesterday and today He did not receive any narcotics for the pain Constitutional: no complaints, improved Exam/Review of Systems Exam Vitals Vital Signs Date Temp Pulse Resp B/P (MAP) Pulse Ox O2 O2 Flow FiO2 Time Delivery Rate 09/05/18 66 20 92 Nasal 2.0 09:41 Cannula 09/05/18 98.3 125/72 07:00 (89) 09/03/18 21 20:22 Intake and Output 09/04/18 09/04/18 09/05/18 1515:00 23:00 07:00 IntakeIntake Total 740 ml 1000 ml OutputOutput Total 1400 ml 300 ml BalanceBalance 740 ml -400 ml -300 ml Constitutional: alert, oriented, well developed Psych: no complaints, nl mood/affect Head: normocephalic, atraumatic Eyes: nl conjunctiva, EOMI, nl lids, nl sclera, PERRL ENMT: nl external ears & nose, nl lips & teeth, nl nasal mucosa & septum Neck: supple, non-tender Respiratory: clear to auscultation, normal air movement Cardiovascular: regular rate and rhythm, nl pulses Gastrointestinal: soft, nl liver, spleen, non-tender Musculoskeletal: nl extremities to inspection, nl gait and stance Extremities: normal pulses 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: [employer] 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-XII intact, nl mental status, nl speech, nl strength Skin: nl turgor; No rash or lesions Lymph: nl lymph nodes Results Result Diagram: 09/04/18 0556 09/04/18 0554 Results 24hrs Laboratory Tests Test 09/04/18 17:05 09/04/18 20:55 09/05/18 02:31 09/05/18 08:11 Bedside Glucose 213 221 H 155 134 Medications Medication Current Medications Ondansetron HCl (Zofran Inj) 4 mg Q6H PRN IV NAUSEA AND/OR VOMITING; Start 08/21/18 at 21:08 Clopidogrel Bisulfate (plaVIX) 75 mg DAILY NGT Last administered on 09/05/18at 10:55; Admin Dose 75 MG; Start 08/21/18 at 21:08 Levalbuterol (Xopenex Neb) 1.25 mg Q6H RESP THERAPY HHN Last administered on 09/03/18at 20:22; Admin Dose 1.25 MG; Start 08/21/18 at 21:08 Ipratropium [place] (Atrovent 0.02% (Neb)) 0.5 mg Q6H RESP THERAPY HHN Last administered on 09/03/18at 20:22; Admin Dose 0.5 MG; Start 08/21/18 at 21:08 Diagnostic Test (Pha) (Accu-Chek) 1 ea 02 XX Last administered on 09/04/18at 02:24; Admin Dose 1 EA; Start 08/21/18 at 21:08 Miscellaneous Information 1 ea NOTE XX ; Start 08/21/18 at 21:08 Glucose (Glutose) 15 gm Q15M PRN PO DECREASED GLUCOSE; Start 08/21/18 at 21:08 Glucose (Glutose) 22.5 gm Q15M PRN PO DECREASED GLUCOSE; Start 08/21/18 at 21:08 Dextrose (D50w Syringe) 25 ml Q15M PRN IV DECREASED GLUCOSE; Start 08/21/18 at 21:08 Dextrose (D50w Syringe) 50 ml Q15M PRN IV DECREASED GLUCOSE; Start 08/21/18 at 21:08 Glucagon (Glucagen) 1 mg Q15M PRN IM DECREASED GLUCOSE; Start 08/21/18 at 21:08 Glucose (Glutose) 15 gm Q15M PRN BUCCAL DECREASED GLUCOSE; Start 08/21/18 at 21:08 Famotidine (Pepcid) 20 mg DAILY PO Last administered on 09/05/18at 10:55; Admin Dose 20 MG; Start 08/21/18 at 21:08 Insulin Aspart (Novolog Insulin Pen) 10 unit WITH MEALS SC Last administered on 09/05/18at 08:13; Admin Dose 10 UNIT; Start 08/21/18 at 21:08 Insulin Aspart (Novolog Insulin Pen) NOVOLOG *MODERATE* ALGORITHM WITH MEALS BEDTIME SC Last administered on 09/04/18at 21:10; Admin Dose 2 UNIT; Start 08/21/18 at 21:08 Oxycodone/ Acetaminophen (Endocet (10/ 325)) 1 tab Q4H PRN PO MODERATE PAIN LEVEL 4-6 Last administered on 08/31/18at 14:29; Admin Dose 1 TAB; Start 08/21/18 at 21:08 Hydralazine HCl (Apresoline) 10 mg Q4H PRN IV SBP >150; Start 08/21/18 at 21:30 Acetaminophen (Tylenol Tab) 650 mg Q3H PRN PO ELEVATED TEMPERATURE Last administered on 08/26/18 15:46; Admin Dose 650 MG; Start 08/21/18 at 22:00 Ascorbic Acid (Vitamin C) 500 mg TID NGT Last administered on 09/05/18 10:55; Admin Dose 500 MG; Start 08/21/18 at 21:49 Carvedilol (Coreg) 12.5 mg BID PO Last administered on 09/05/18 10:56; Admin Dose 12.5 MG; Start 08/21/18 at 21:51 Docusate Sodium (Colace) 250 mg BID PO Last administered on 09/05/18 10:55; Admin Dose 250 MG; Start 08/21/18 at 21:51 Amlodipine Besylate (Norvasc) 5 mg DAILY PO Last administered on 09/05/18 10:56; Admin Dose 5 MG; Start 08/22/18 at 09:00 Magnesium Hydroxide (Milk Of Mag) 30 ml BID PRN PO CONSTIPATION Last administered on 09/01/18 14:48; Admin Dose 30 ML; Start 08/22/18 at 11:00 Lactulose (Enulose) 20 gm DAILY PRN PO CONSTIPATION Last administered on 08/22/18 12:44; Admin Dose 20 GM; Start 08/22/18 at 11:00 Bisacodyl (Dulcolax Supp) 10 mg DAILY PRN [place] CONSTIPATION; Start 08/22/18 at 11:00 Morphine Sulfate (morphine) 1 mg Q6H PRN IV SEVERE PAIN LEVEL 7-10; Start 08/23/18 at 07:00 Nitroglycerin (Nitroglycerin (Sl Tab) 0.4 Mg) 1 tab Q5M PRN SL ANGINA; Start 08/24/18 at 11:30 Gabapentin (Neurontin) 100 mg TID PO Last administered on 09/05/18 10:56; Admin Dose 100 MG; Start 08/25/18 at 13:00 Polyethylene Glycol (Miralax) 17 gm TID PRN PO CONSTIPATION; Start 08/25/18 at 12:00 Insulin Glargine (Lantus) 28 units 2100 SC Last administered on 09/04/18 21:11; Admin Dose 28 UNITS; Start 08/26/18 at 21:00 Hydromorphone HCl (Dilaudid) 1 mg Q3 PRN IV SEVERE PAIN LEVEL 7-10 Last administered on 09/04/18 17:44; Admin Dose 1 MG; Start 08/27/18 at 13:00 Apixaban (Eliquis) 5 mg BID PO Last administered on 09/05/18 10:55; Admin Dose 5 MG; Start 08/29/18 at 11:00 Polysaccharide Iron Complex (Niferex-150) 1 cap BID PO Last administered on 09/05/18 10:56; Admin Dose 1 CAP; Start 09/01/18 at 09:00 Lubiprostone (Amitiza) 24 mcg BID PO Last administered on 09/05/18 10:55; Admin Dose 24 MCG; Start 09/01/18 at 21:00 Polyethylene Glycol (Miralax) 17 gm DAILY GTB Last administered on 09/05/18 10:55; Admin Dose 17 GM; Start 09/02/18 at 09:00 Bumetanide (Bumex) 1 mg DAILY PO Last administered on 09/05/18 10:55; Admin Dose 1 MG; Start 09/01/18 at 12:00 Magnesium Chloride (Mag 64) 128 mg BID PO Last administered on 09/05/18 10:55; Admin Dose 128 MG; Start 09/04/18 at 10:00 Atorvastatin Calcium (Lipitor) 40 mg HS PO Last administered on 09/04/18 20:48; Admin Dose 40 MG; Start 09/04/18 at 21:00 Ferric Sodium Gluconate Complex 125 mg/Sodium Chloride 110 ml @ 110 mls/hr DAILY@1300 IVPB ; Start 09/05/18 at 13:00; Stop 09/09/18 at 13:59 BREN PRABHAKAR MD September 05, 2018 12:29
[2018-09-05] MEDS ORDERED: SOD FERRIC GLUC COMPLX 125 MG in SOD CHLORIDE 0.9% 100 ML IVPB SCH (13:00)
--- NOTE | 2018-09-05 13:51 | CONS ---
Assessment/Plan Assessment/Plan Hospital Course (Demo Recall) Acute on chronic diastolic CHF: Close to euvolemic now Pancreatitis:had an episode few months ago and was hospitalized at [facility]. No gallstones at that time. Not a drinker, TG ok in the past. Possibly sludge/small stones. Resolved based on symptoms and lipase Transaminitis: due to above.Improved, then worse, now better again NSTEMI: residual trop elevation likely from CABG. Trend does not suggest ACS. No symptoms. Ankle pain: XR without fracture. Improving Acute on chronic renal failure: Cr baseline 1.6. Worse after CABG.Now back to baseline Cardiogenic shock: Transient post op Acute respiratory failure: s/p extubation 08/16 Anemia: from operative blood loss. Required one unit. No active bleeding s/p CABG x5 08/13/18: WINN to LAD, SVG to ramus sequence to obtuse marginal artery, SVG to PDA, SVG to left ventricular extension branch. Difficult case per Dr. Howell with poor targets. CAD: s/p multiple prior PCIs. Cath 08/11/18 with multivessel disease. s/p CABG above Recent left femoral DVT: on Eliquis as outpt. DM HT HL -ok for d/c. I have provided the pt with a list of current meds that he can check on at home to make sure he does not take the wrong meds -bumex 1mg daily -lipitor 40mg -Eliquis 5mg BID -continue plavix -coreg 12.5mg BID -amlodipine 5mg Consultation Date/Type/Reason Admit Date/Time August 21, 2018 at 18:31 Initial Consult Date Type of Consult Cardiology Requesting Provider: NERIS BROTHERS MD Date/Time of Note DATE: 09/05/18 TIME: 13:50 24 HR Interval Summary Free Text/Dictation No events. Home tomorrow. No complaints Exam/Review of Systems Vital Signs Vitals Vital Signs Date Temp Pulse Resp B/P (MAP) Pulse Ox O2 O2 Flow FiO2 Time Delivery Rate 09/05/18 66 20 92 Nasal 2.0 09:41 Cannula 09/05/18 98.3 125/72 07:00 (89) 09/03/18 21 20:22 Intake and Output 09/04/18 09/04/18 09/05/18 1515:00 23:00 07:00 IntakeIntake Total 740 ml 1000 ml OutputOutput Total 1400 ml 300 ml BalanceBalance 740 ml -400 ml -300 ml Exam Constitutional: alert, oriented Psych: no complaints, nl mood/affect Head: normocephalic, atraumatic Neck: No jvd Respiratory: diminished breath sounds; No clear to auscultation Cardiovascular: regular rate and rhythm, edema (1+); No systolic murmur Gastrointestinal: soft, non-tender; No distended 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: nl mental status, nl speech Labs Result Diagram: 09/04/18 0556 09/04/18 0554 Results 24hrs Laboratory Tests Test 09/04/18 17:05 09/04/18 20:55 09/05/18 02:31 09/05/18 08:11 Bedside Glucose 213 221 H 155 134 Test 09/05/18 12:20 Bedside Glucose 120 Medications Medications Current Medications Ondansetron HCl (Zofran Inj) 4 mg Q6H PRN IV NAUSEA AND/OR VOMITING; Start 08/21/18 at 21:08 Clopidogrel Bisulfate (plaVIX) 75 mg DAILY NGT Last administered on 09/05/18at 10:55; Admin Dose 75 MG; Start 08/21/18 at 21:08 Levalbuterol (Xopenex Neb) 1.25 mg Q6H RESP THERAPY HHN Last administered on 09/03/18at 20:22; Admin Dose 1.25 MG; Start 08/21/18 at 21:08 Ipratropium [place] (Atrovent 0.02% (Neb)) 0.5 mg Q6H RESP THERAPY HHN Last administered on 09/03/18at 20:22; Admin Dose 0.5 MG; Start 08/21/18 at 21:08 Diagnostic Test (Pha) (Accu-Chek) 1 ea 02 XX Last administered on 09/04/18at 02:24; Admin Dose 1 EA; Start 08/21/18 at 21:08 Miscellaneous Information 1 ea NOTE XX ; Start 08/21/18 at 21:08 Glucose (Glutose) 15 gm Q15M PRN PO DECREASED GLUCOSE; Start 08/21/18 at 21:08 Glucose (Glutose) 22.5 gm Q15M PRN PO DECREASED GLUCOSE; Start 08/21/18 at 21:08 Dextrose (D50w Syringe) 25 ml Q15M PRN IV DECREASED GLUCOSE; Start 08/21/18 at 21:08 Dextrose (D50w Syringe) 50 ml Q15M PRN IV DECREASED GLUCOSE; Start 08/21/18 at 21:08 Glucagon (Glucagen) 1 mg Q15M PRN IM DECREASED GLUCOSE; Start 08/21/18 at 21:08 Glucose (Glutose) 15 gm Q15M PRN BUCCAL DECREASED GLUCOSE; Start 08/21/18 at 21:08 Famotidine (Pepcid) 20 mg DAILY PO Last administered on 09/05/18 10:55; Admin Dose 20 MG; Start 08/21/18 at 21:08 Insulin Aspart (Novolog Insulin Pen) 10 unit WITH MEALS SC Last administered on 09/05/18 12:56; Admin Dose 10 UNIT; Start 08/21/18 at 21:08 Insulin Aspart (Novolog Insulin Pen) NOVOLOG *MODERATE* ALGORITHM WITH MEALS B EDTIME SC Last administered on 09/04/18 21:10; Admin Dose 2 UNIT; Start 08/21/18 at 21:08 Oxycodone/ Acetaminophen (Endocet (10/ 325)) 1 tab Q4H PRN PO MODERATE PAIN LEVEL 4-6 Last administered on 08/31/18 14:29; Admin Dose 1 TAB; Start 08/21/18 at 21:08 Hydralazine HCl (Apresoline) 10 mg Q4H PRN IV SBP >150; Start 08/21/18 at 21:30 Acetaminophen (Tylenol Tab) 650 mg Q3H PRN PO ELEVATED TEMPERATURE Last administered on 08/26/18 15:46; Admin Dose 650 MG; Start 08/21/18 at 22:00 Ascorbic Acid (Vitamin C) 500 mg TID NGT Last administered on 09/05/18 12:57; Admin Dose 500 MG; Start 08/21/18 at 21:49 Carvedilol (Coreg) 12.5 mg BID PO Last administered on 09/05/18 10:56; Admin Dose 12.5 MG; Start 08/21/18 at 21:51 Docusate Sodium (Colace) 250 mg BID PO Last administered on 09/05/18 10:55; Admin Dose 250 MG; Start 08/21/18 at 21:51 Amlodipine Besylate (Norvasc) 5 mg DAILY PO Last administered on 09/05/18 10:56; Admin Dose 5 MG; Start 08/22/18 at 09:00 Magnesium Hydroxide (Milk Of Mag) 30 ml BID PRN PO CONSTIPATION Last administered on 09/01/18 14:48; Admin Dose 30 ML; Start 08/22/18 at 11:00 Lactulose (Enulose) 20 gm DAILY PRN PO CONSTIPATION Last administered on 08/22/18 12:44; Admin Dose 20 GM; Start 08/22/18 at 11:00 Bisacodyl (Dulcolax Supp) 10 mg DAILY PRN [place] CONSTIPATION; Start 08/22/18 at 11:00 Morphine Sulfate (morphine) 1 mg Q6H PRN IV SEVERE PAIN LEVEL 7-10; Start at 07:00 Nitroglycerin (Nitroglycerin (Sl Tab) 0.4 Mg) 1 tab Q5M PRN SL ANGINA; Start 08/24/18 at 11:30 Gabapentin (Neurontin) 100 mg TID PO Last administered on 09/05/18 12:56; Admin Dose 100 MG; Start 08/25/18 at 13:00 Polyethylene Glycol (Miralax) 17 gm TID PRN PO CONSTIPATION; Start 08/25/18 at 12:00 Insulin Glargine (Lantus) 28 units 2100 SC Last administered on 09/04/18 21:11; Admin Dose 28 UNITS; Start 08/26/18 at 21:00 Hydromorphone HCl (Dilaudid) 1 mg Q3 PRN IV SEVERE PAIN LEVEL 7-10 Last administered on 09/04/18 17:44; Admin Dose 1 MG; Start 08/27/18 at 13:00 Apixaban (Eliquis) 5 mg BID PO Last administered on 09/05/18 10:55; Admin Dose 5 MG; Start 08/29/18 at 11:00 Polysaccharide Iron Complex (Niferex-150) 1 cap BID PO Last administered on 09/05/18 10:56; Admin Dose 1 CAP; Start 09/01/18 at 09:00 Lubiprostone (Amitiza) 24 mcg BID PO Last administered on 09/05/18 10:55; Admin Dose 24 MCG; Start 09/01/18 at 21:00 Polyethylene Glycol (Miralax) 17 gm DAILY GTB Last administered on 09/05/18at 10:55; Admin Dose 17 GM; Start 09/02/18 at 09:00 Bumetanide (Bumex) 1 mg DAILY PO Last administered on 09/05/18at 10:55; Admin Dose 1 MG; Start 09/01/18 at 12:00 Magnesium Chloride (Mag 64) 128 mg BID PO Last administered on 09/05/18at 10:55; Admin Dose 128 MG; Start 09/04/18 at 10:00 Atorvastatin Calcium (Lipitor) 40 mg HS PO Last administered on 09/04/18at 20:48; Admin Dose 40 MG; Start 09/04/18 at 21:00 Ferric Sodium Gluconate Complex 125 mg/Sodium Chloride 110 ml @ 110 mls/hr DAILY@1300 IVPB ; Start 09/05/18 at 13:00; Stop 09/09/18 at 13:59 ALONDRA GILBERT September 05, 2018 13:51
[2018-09-05 14:00] VITALS: BP 141/63; PULSE 63; RESP 18
--- NOTE | 2018-09-05 14:15 | PN ---
Date/Time of Note Date/Time of Note DATE: 09/05/18 TIME: 14:14 Subjective feeling better Objective Vital Signs Date Temp Pulse Resp B/P (MAP) Pulse Ox O2 O2 Flow FiO2 Time Delivery Rate 09/05/18 66 20 92 Nasal 2.0 09:41 Cannula 09/05/18 98.3 125/72 07:00 (89) 09/03/18 21 20:22 Intake and Output 09/04/18 09/04/18 09/05/18 1414:59 22:59 06:59 IntakeIntake Total 740 ml 1000 ml OutputOutput Total 1400 ml 300 ml BalanceBalance 740 ml -400 ml -300 ml Exam pulm-cta NY/S ambulation 150 feet Results/Medications Result Diagram: 09/04/18 0556 09/04/18 0554 Results 24 hrs Laboratory Tests Test 09/04/18 17:05 09/04/18 20:55 09/05/18 02:31 09/05/18 08:11 Bedside Glucose 213 221 H 155 134 Test 09/05/18 12:20 Bedside Glucose 120 Medications Current Medications Ondansetron HCl (Zofran Inj) 4 mg Q6H PRN IV NAUSEA AND/OR VOMITING; Start 08/21/18 at 21:08 Clopidogrel Bisulfate (plaVIX) 75 mg DAILY NGT Last administered on 09/05/18at 10:55; Admin Dose 75 MG; Start 08/21/18 at 21:08 Levalbuterol (Xopenex Neb) 1.25 mg Q6H RESP THERAPY HHN Last administered on 09/03/18at 20:22; Admin Dose 1.25 MG; Start 08/21/18 at 21:08 Ipratropium [place] (Atrovent 0.02% (Neb)) 0.5 mg Q6H RESP THERAPY HHN Last administered on 09/03/18at 20:22; Admin Dose 0.5 MG; Start 08/21/18 at 21:08 Diagnostic Test (Pha) (Accu-Chek) 1 ea 02 XX Last administered on 09/04/18at 02:24; Admin Dose 1 EA; Start 08/21/18 at 21:08 Miscellaneous Information 1 ea NOTE XX ; Start 08/21/18 at 21:08 Glucose (Glutose) 15 gm Q15M PRN PO DECREASED GLUCOSE; Start 08/21/18 at 21:08 Glucose (Glutose) 22.5 gm Q15M PRN PO DECREASED GLUCOSE; Start 08/21/18 at 21:08 Dextrose (D50w Syringe) 25 ml Q15M PRN IV DECREASED GLUCOSE; Start 08/21/18 at 21:08 Dextrose (D50w Syringe) 50 ml Q15M PRN IV DECREASED GLUCOSE; Start 08/21/18 at 21:08 Glucagon (Glucagen) 1 mg Q15M PRN IM DECREASED GLUCOSE; Start 08/21/18 at 21:08 Glucose (Glutose) 15 gm Q15M PRN BUCCAL DECREASED GLUCOSE; Start 08/21/18 at 21:08 Famotidine (Pepcid) 20 mg DAILY PO Last administered on 09/05/18 10:55; Admin Dose 20 MG; Start 08/21/18 at 21:08 Insulin Aspart (Novolog Insulin Pen) 10 unit WITH MEALS SC Last administered on 09/05/18 12:56; Admin Dose 10 UNIT; Start 08/21/18 at 21:08 Insulin Aspart (Novolog Insulin Pen) NOVOLOG *MODERATE* ALGORITHM WITH MEALS BEDTIME SC Last administered on 09/04/18 21:10; Admin Dose 2 UNIT; Start 08/21/18 at 21:08 Oxycodone/ Acetaminophen (Endocet (10/ 325)) 1 tab Q4H PRN PO MODERATE PAIN LEVEL 4-6 Last administered on 08/31/18 14:29; Admin Dose 1 TAB; Start 08/21/18 at 21:08 Hydralazine HCl (Apresoline) 10 mg Q4H PRN IV SBP >150; Start 08/21/18 at 21:30 Acetaminophen (Tylenol Tab) 650 mg Q3H PRN PO ELEVATED TEMPERATURE Last administered on 08/26/18 15:46; Admin Dose 650 MG; Start 08/21/18 at 22:00 Ascorbic Acid (Vitamin C) 500 mg TID NGT Last administered on 09/05/18 12:57; Admin Dose 500 MG; Start 08/21/18 at 21:49 Carvedilol (Coreg) 12.5 mg BID PO Last administered on 09/05/18 10:56; Admin Dose 12.5 MG; Start 08/21/18 at 21:51 Docusate Sodium (Colace) 250 mg BID PO Last administered on 09/05/18 10:55; Admin Dose 250 MG; Start 08/21/18 at 21:51 Amlodipine Besylate (Norvasc) 5 mg DAILY PO Last administered on 09/05/18at 1 0:56; Admin Dose 5 MG; Start 08/22/18 at 09:00 Magnesium Hydroxide (Milk Of Mag) 30 ml BID PRN PO CONSTIPATION Last administered on 09/01/18 14:48; Admin Dose 30 ML; Start 08/22/18 at 11:00 Lactulose (Enulose) 20 gm DAILY PRN PO CONSTIPATION Last administered on 08/22/18 12:44; Admin Dose 20 GM; Start 08/22/18 at 11:00 Bisacodyl (Dulcolax Supp) 10 mg DAILY PRN [place] CONSTIPATION; Start 08/22/18 at 11 :00 Morphine Sulfate (morphine) 1 mg Q6H PRN IV SEVERE PAIN LEVEL 7-10; Start 08/23/18 at 07:00 Nitroglycerin (Nitroglycerin (Sl Tab) 0.4 Mg) 1 tab Q5M PRN SL ANGINA; Start 08/24/18 at 11:30 Gabapentin (Neurontin) 100 mg TID PO Last administered on 09/05/18 12:56; Admin Dose 100 MG; Start 08/25/18 at 13:00 Polyethylene Glycol (Miralax) 17 gm TID PRN PO CONSTIPATION; Start 08/25/18 at 12:00 Insulin Glargine (Lantus) 28 units 2100 SC Last administered on 09/04/18at 21:11; Admin Dose 28 UNITS; Start 08/26/18 at 21:00 Hydromorphone HCl (Dilaudid) 1 mg Q3 PRN IV SEVERE PAIN LEVEL 7-10 Last adminis tered on 09/04/18 17:44; Admin Dose 1 MG; Start 08/27/18 at 13:00 Apixaban (Eliquis) 5 mg BID PO Last administered on 09/05/18 10:55; Admin Dose 5 MG; Start 08/29/18 at 11:00 Polysaccharide Iron Complex (Niferex-150) 1 cap BID PO Last administered on 09/05/18 10:56; Admin Dose 1 CAP; Start 09/01/18 at 09:00 Lubiprostone (Amitiza) 24 mcg BID PO Last administered on 09/05/18 10:55; Admin Dose 24 MCG; Start 09/01/18 at 21:00 Polyethylene Glycol (Miralax) 17 gm DAILY GTB Last administered on 09/05/18 10:55; Admin Dose 17 GM; Start 09/02/18 at 09:00 Bumetanide (Bumex) 1 mg DAILY PO Last administered on 09/05/18 10:55; Admin Dose 1 MG; Start 09/01/18 at 12:00 Magnesium Chloride (Mag 64) 128 mg BID PO Last administered on 09/05/18 10:55; Admin Dose 128 MG; Start 09/04/18 at 10:00 Atorvastatin Calcium (Lipitor) 40 mg HS PO Last administered on 09/04/18at 20:48; Admin Dose 40 MG; Start 09/04/18 at 21:00 Ferric Sodium Gluconate Complex 125 mg/Sodium Chloride 110 ml @ 110 mls/hr NAZ Y@1300 IVPB ; Start 09/05/18 at 13:00; Stop 09/09/18 at 13:59 Assessment/Plan Additional Assessment/Plan Rehab- Critical Illness Myopathy Progressing well, home tomorrow with family Cardiac- s/p CABG Pulm-s/p resp failure improved DM2 Hypertension Lumbar radiculopathy A/CKD- improving YARIEL MARIE MD September 05, 2018 14:15
--- NOTE | 2018-09-05 18:13 | CONS ---
Assessment/Plan Assessment/Plan Hospital Course (Demo Recall) 1. Recent pancreatitis with US finding of sludge in gb -had conversation with patient regarding procedure and he would like to hold off on surgery at this time> can follow with us as outpatient 2. Transaminitis: improving -trend 3. CAD w recent CABG -F/U cards and cardiothoracic> will need eventual cards clearance for cholecystectomy 4. DM -glucose optimization 5. Renal failure: -judicious fluids -limit nephrotoxic meds 6. Anemia: -monitor and transfuse as needed 7. Morbid obesity: bmi 40 -diet and exercise optimization -encourage weight loss Thank you. Patient seen and examined in collaboration with Dr. Tj Harrison. Consultation Date/Type/Reason Admit Date/Time August 21, 2018 at 18:31 Date of Consultation: September 05, 2018 Type of Consult surgical Reason for Consultation gb Requesting Provider: NERIS BROTHERS MD Date/Time of Note DATE: 09/05/18 TIME: 17:41 Hx of Present Illness Louie Kemp is a 73 yo man with multiple comorbidities who is currently in rehabilitation unit status post CABG for critical illness myopathy. While inhouse he was managed for pancreatitis which is now resolved. Abdominal imaging was noted to have sludge in the gallbladder. Laboratory findings were significant for transaminitis which have since improved. No current fevers, chills, abdominal pain, nausea, vomiting, change in bowel function, sz, rash, skin or scleral changes. General surgery was asked to evaluate. 12 point review of systems was reviewed and is negative except as stated in hpi. Past Medical History Medical History: angina, colitis, congestive heart failure, coronary artery disease, deep vein thrombosis, diabetes, diverticulitis, gallstones, GERD, GI bleed, high cholesterol, hypertension, pancreatitis, peptic ulcer disease, urinary tract infection Home Meds Reported Medications Insulin Aspart* (Novolog Insulin Pen*) 100 Unit/Ml Soln, 0 SC .SLIDING SCALE AC, EA AC MEALS 08/11/18 Insulin Detemir (Levemir Flextouch) 100 Unit/1 Ml Insuln.pen, 25 UNIT SQ QHS, EA 08/11/18 Potassium Chloride* (K-Dur*) 10 Meq Tab.prt.sr, 10 MEQ PO DAILY, TAB 08/11/18 Furosemide* (Furosemide*) 40 Mg Tablet, 40 MG PO DAILY, TAB 08/11/18 Aspirin (Low Dose Aspirin) 81 Mg Tablet.dr, 81 MG PO DAILY, #30 TAB 08/11/18 Apixaban* (Eliquis*) 5 Mg Tablet, 5 MG PO BID, TAB 08/11/18 Clonidine Hcl* (Clonidine Hcl*) 0.1 Mg Tab, 0.1 MG PO DAILY PRN for ELEVATED BLOOD PRESSURE, TAB 08/11/18 Carvedilol* (Coreg CR*) 40 Mg Capsr, 40 MG PO DAILY, #30 CAP 08/11/18 Rosuvastatin Calcium* (Crestor*) 40 Mg Tablet, 40 MG PO QHS, #30 TAB 08/11/18 Amlodipine Besylate* (Norvasc*) 5 Mg Tablet, 5 MG PO DAILY, TAB 08/11/18 Medications Current Medications Ondansetron HCl (Zofran Inj) 4 mg Q6H PRN IV NAUSEA AND/OR VOMITING; Start 08/21/18 at 21:08 Clopidogrel Bisulfate (plaVIX) 75 mg DAILY NGT Last administered on 09/05/18at 10:55; Admin Dose 75 MG; Start 08/21/18 at 21:08 Levalbuterol (Xopenex Neb) 1.25 mg Q6H RESP THERAPY HHN Last administered on 09/03/18at 20:22; Admin Dose 1.25 MG; Start 08/21/18 at 21:08 Ipratropium [place] (Atrovent 0.02% (Neb)) 0.5 mg Q6H RESP THERAPY HHN Last administered on 09/03/18at 20:22; Admin Dose 0.5 MG; Start 08/21/18 at 21:08 Diagnostic Test (Pha) (Accu-Chek) 1 ea 02 XX Last administered on 09/04/18at 02:24; Admin Dose 1 EA; Start 08/21/18 at 21:08 Miscellaneous Information 1 ea NOTE XX ; Start 08/21/18 at 21:08 Glucose (Glutose) 15 gm Q15M PRN PO DECREASED GLUCOSE; Start 08/21/18 at 21:08 Glucose (Glutose) 22.5 gm Q15M PRN PO DECREASED GLUCOSE; Start 08/21/18 at 21:08 Dextrose (D50w Syringe) 25 ml Q15M PRN IV DECREASED GLUCOSE; Start 08/21/18 at 21:08 Dextrose (D50w Syringe) 50 ml Q15M PRN IV DECREASED GLUCOSE; Start 08/21/18 at 21:08 Glucagon (Glucagen) 1 mg Q15M PRN IM DECREASED GLUCOSE; Start 08/21/18 at 21:08 Glucose (Glutose) 15 gm Q15M PRN BUCCAL DECREASED GLUCOSE; Start 08/21/18 at 21:08 Famotidine (Pepcid) 20 mg DAILY PO Last administered on 09/05/18 10:55; Admin Dose 20 MG; Start 08/21/18 at 21:08 Insulin Aspart (Novolog Insulin Pen) 10 unit WITH MEALS SC Last administered on 09/05/18 17:33; Admin Dose 10 UNIT; Start 08/21/18 at 21:08 Insulin Aspart (Novolog Insulin Pen) NOVOLOG *MODERATE* ALGORITHM WITH MEALS BEDTIME SC Last administered on 09/05/18 17:32; Admin Dose 2 UNIT; Start 08/21/18 at 21:08 Oxycodone/ Acetaminophen (Endocet (10/ 325)) 1 tab Q4H PRN PO MODERATE PAIN LEVEL 4-6 Last administered on 08/31/18 14:29; Admin Dose 1 TAB; Start 08/21/18 at 21:08 Hydralazine HCl (Apresoline) 10 mg Q4H PRN IV SBP >150; Start 08/21/18 at 21:30 Acetaminophen (Tylenol Tab) 650 mg Q3H PRN PO ELEVATED TEMPERATURE Last administered on 08/26/18 15:46; Admin Dose 650 MG; Start 08/21/18 at 22:00 Ascorbic Acid (Vitamin C) 500 mg TID NGT Last administered on 09/05/18 12:57; Admin Dose 500 MG; Start 08/21/18 at 21:49 Carvedilol (Coreg) 12.5 mg BID PO Last administered on 09/05/18 10:56; Admin Dose 12.5 MG; Start 08/21/18 at 21:51 Docusate Sodium (Colace) 250 mg BID PO Last administered on 09/05/18 10:55; Admin Dose 250 MG; Start 08/21/18 at 21:51 Amlodipine Besylate (Norvasc) 5 mg DAILY PO Last administered on 09/05/18 10:56; Admin Dose 5 MG; Start 08/22/18 at 09:00 Magnesium Hydroxide (Milk Of Mag) 30 ml BID PRN PO CONSTIPATION Last administered on 09/01/18 14:48; Admin Dose 30 ML; Start 08/22/18 at 11:00 Lactulose (Enulose) 20 gm DAILY PRN PO CONSTIPATION Last administered on 08/22/18 12:44; Admin Dose 20 GM; Start 08/22/18 at 11:00 Bisacodyl (Dulcolax Supp) 10 mg DAILY PRN [place] CONSTIPATION; Start 08/22/18 at 11:00 Morphine Sulfate (morphine) 1 mg Q6H PRN IV SEVERE PAIN LEVEL 7-10; Start 08/23/18 at 07:00 Nitroglycerin (Nitroglycerin (Sl Tab) 0.4 Mg) 1 tab Q5M PRN SL ANGINA; Start 08/24/18 at 11:30 Gabapentin (Neurontin) 100 mg TID PO Last administered on 09/05/18 12:56; Admin Dose 100 MG; Start 08/25/18 at 13:00 Polyethylene Glycol (Miralax) 17 gm TID PRN PO CONSTIPATION; Start 08/25/18 at 12:00 Insulin Glargine (Lantus) 28 units 2100 SC Last administered on 09/04/18 21:11; Admin Dose 28 UNITS; Start 08/26/18 at 21:00 Hydromorphone HCl (Dilaudid) 1 mg Q3 PRN IV SEVERE PAIN LEVEL 7-10 Last administered on 09/04/18 17:44; Admin Dose 1 MG; Start 08/27/18 at 13:00 Apixaban (Eliquis) 5 mg BID PO Last administered on 09/05/18 10:55; Admin Dose 5 MG; Start 08/29/18 at 11:00 Polysaccharide Iron Complex (Niferex-150) 1 cap BID PO Last administered on 09/05/18 10:56; Admin Dose 1 CAP; Start 09/01/18 at 09:00 Lubiprostone (Amitiza) 24 mcg BID PO Last administered on 09/05/18 10:55; Admin Dose 24 MCG; Start 09/01/18 at 21:00 Polyethylene Glycol (Miralax) 17 gm DAILY GTB Last administered on 09/05/18 10:55; Admin Dose 17 GM; Start 09/02/18 at 09:00 Bumetanide (Bumex) 1 mg DAILY PO Last administered on 09/05/18at 10:55; Admin Dose 1 MG; Start 09/01/18 at 12:00 Magnesium Chloride (Mag 64) 128 mg BID PO Last administered on 09/05/18at 10:55; Admin Dose 128 MG; Start 09/04/18 at 10:00 Atorvastatin Calcium (Lipitor) 40 mg HS PO Last administered on 09/04/18at 20:48; Admin Dose 40 MG; Start 09/04/18 at 21:00 Ferrous Sulfate (Ferrous Sulfate (Ec)) 325 mg BID PO ; Start 09/05/18 at 21:00 Allergies: Coded Allergies: No Known Allergy (Unverified , 08/11/18) Past Surgical History Past Surgical Hx: angioplasty, cholecystectomy, coronary bypass surgery, endoscopy Social History Alcohol Use: rarely Smoking Status: Never smoker Drug Use: none Exam/Review of Systems Exam Vitals Vital Signs Date Temp Pulse Resp B/P (MAP) Pulse Ox O2 O2 Flow FiO2 Time Delivery Rate 09/05/18 66 20 92 Nasal 2.0 09:41 Cannula 09/05/18 98.3 125/72 07:00 (89) 09/03/18 21 20:22 Intake and Output 09/04/18 09/04/18 09/05/18 1515:00 23:00 07:00 IntakeIntake Total 740 ml 1000 ml OutputOutput Total 1400 ml 300 ml BalanceBalance 740 ml -400 ml -300 ml Constitutional: alert, oriented Psych: nl mood/affect; No anxiety Head: normocephalic, atraumatic Eyes: nl conjunctiva, EOMI, nl lids, nl sclera ENMT: nl external ears & nose, nl lips & teeth, mucosa pink and moist Neck: supple, non-tender Respiratory: normal air movement; No congested cough, No labored breathing Cardiovascular: regular rate and rhythm, nl pulses; No edema Gastrointestinal: soft, non-tender, distended (min), other (negative bearden's by palpation) Musculoskeletal: nl extremities to inspection Extremities: normal pulses 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: nl mental status, nl speech, nl strength Skin: No rash or lesions Results Result Diagram: 09/04/18 0556 09/04/18 0554 Results 24hrs Laboratory Tests Test 09/04/18 20:55 09/05/18 02:31 09/05/18 08:11 09/05/18 12:20 Bedside Glucose 221 H 155 134 120 Test 09/05/18 17:24 Bedside Glucose 172 Medications Medication Current Medications Ondansetron HCl (Zofran Inj) 4 mg Q6H PRN IV NAUSEA AND/OR VOMITING; Start 08/21/18 at 21:08 Clopidogrel Bisulfate (plaVIX) 75 mg DAILY NGT Last administered on 09/05/18at 10:55; Admin Dose 75 MG; Start 08/21/18 at 21:08 Levalbuterol (Xopenex Neb) 1.25 mg Q6H RESP THERAPY HHN Last administered on 09/03/18at 20:22; Admin Dose 1.25 MG; Start 08/21/18 at 21:08 Ipratropium [place] (Atrovent 0.02% (Neb)) 0.5 mg Q6H RESP THERAPY HHN Last administered on 09/03/18at 20:22; Admin Dose 0.5 MG; Start 08/21/18 at 21:08 Diagnostic Test (Pha) (Accu-Chek) 1 ea 02 XX Last administered on 09/04/18at 02:24; Admin Dose 1 EA; Start 08/21/18 at 21:08 Miscellaneous Information 1 ea NOTE XX ; Start 08/21/18 at 21:08 Glucose (Glutose) 15 gm Q15M PRN PO DECREASED GLUCOSE; Start 08/21/18 at 21:08 Glucose (Glutose) 22.5 gm Q15M PRN PO DECREASED GLUCOSE; Start 08/21/18 at 21:08 Dextrose (D50w Syringe) 25 ml Q15M PRN IV DECREASED GLUCOSE; Start 08/21/18 at 21:08 Dextrose (D50w Syringe) 50 ml Q15M PRN IV DECREASED GLUCOSE; Start 08/21/18 at 21:08 Glucagon (Glucagen) 1 mg Q15M PRN IM DECREASED GLUCOSE; Start 08/21/18 at 21:08 Glucose (Glutose) 15 gm Q15M PRN BUCCAL DECREASED GLUCOSE; Start 08/21/18 at 21:08 Famotidine (Pepcid) 20 mg DAILY PO Last administered on 09/05/18at 10:55; Admin Dose 20 MG; Start 08/21/18 at 21:08 Insulin Aspart (Novolog Insulin Pen) 10 unit WITH MEALS SC Last administered on 09/05/18 17:33; Admin Dose 10 UNIT; Start 08/21/18 at 21:08 Insulin Aspart (Novolog Insulin Pen) NOVOLOG *MODERATE* ALGORITHM WITH MEALS BEDTIME SC Last administered on 09/05/18 17:32; Admin Dose 2 UNIT; Start 08/21/18 at 21:08 Oxycodone/ Acetaminophen (Endocet (10/ 325)) 1 tab Q4H PRN PO MODERATE PAIN LEVEL 4-6 Last administered on 08/31/18 14:29; Admin Dose 1 TAB; Start 08/21/18 at 21:08 Hydralazine HCl (Apresoline) 10 mg Q4H PRN IV SBP >150; Start 08/21/18 at 21:30 Acetaminophen (Tylenol Tab) 650 mg Q3H PRN PO ELEVATED TEMPERATURE Last admin istered on 08/26/18 15:46; Admin Dose 650 MG; Start 08/21/18 at 22:00 Ascorbic Acid (Vitamin C) 500 mg TID NGT Last administered on 09/05/18 12:57; Admin Dose 500 MG; Start 08/21/18 at 21:49 Carvedilol (Coreg) 12.5 mg BID PO Last administered on 09/05/18 10:56; Admin Dose 12.5 MG; Start 08/21/18 at 21:51 Docusate Sodium (Colace) 250 mg BID PO Last administered on 09/05/18 10:55; Admin Dose 250 MG; Start 08/21/18 at 21:51 Amlodipine Besylate (Norvasc) 5 mg DAILY PO Last administered on 09/05/18 10:56; Admin Dose 5 MG; Start 08/22/18 at 09:00 Magnesium Hydroxide (Milk Of Mag) 30 ml BID PRN PO CONSTIPATION Last administered on 09/01/18 14:48; Admin Dose 30 ML; Start 08/22/18 at 11:00 Lactulose (Enulose) 20 gm DAILY PRN PO CONSTIPATION Last administered on 08/22/18 12:44; Admin Dose 20 GM; Start 08/22/18 at 11:00 Bisacodyl (Dulcolax Supp) 10 mg DAILY PRN [place] CONSTIPATION; Start 08/22/18 at 11:00 Morphine Sulfate (morphine) 1 mg Q6H PRN IV SEVERE PAIN LEVEL 7-10; Start 08/23/18 at 07:00 Nitroglycerin (Nitroglycerin (Sl Tab) 0.4 Mg) 1 tab Q5M PRN SL ANGINA; Start 08/24/18 at 11:30 Gabapentin (Neurontin) 100 mg TID PO Last administered on 09/05/18 12:56; Admin Dose 100 MG; Start 08/25/18 at 13:00 Polyethylene Glycol (Miralax) 17 gm TID PRN PO CONSTIPATION; Start 08/25/18 at 12:00 Insulin Glargine (Lantus) 28 units 2100 SC Last administered on 09/04/18 21:11; Admin Dose 28 UNITS; Start 08/26/18 at 21:00 Hydromorphone HCl (Dilaudid) 1 mg Q3 PRN IV SEVERE PAIN LEVEL 7-10 Last adm inistered on 09/04/18at 17:44; Admin Dose 1 MG; Start 08/27/18 at 13:00 Apixaban (Eliquis) 5 mg BID PO Last administered on 09/05/18 10:55; Admin Dose 5 MG; Start 08/29/18 at 11:00 Polysaccharide Iron Complex (Niferex-150) 1 cap BID PO Last administered on 09/05/18 10:56; Admin Dose 1 CAP; Start 09/01/18 at 09:00 Lubiprostone (Amitiza) 24 mcg BID PO Last administered on 09/05/18 10:55; Admin Dose 24 MCG; Start 09/01/18 at 21:00 Polyethylene Glycol (Miralax) 17 gm DAILY GTB Last administered on 09/05/18 10:55; Admin Dose 17 GM; Start 09/02/18 at 09:00 Bumetanide (Bumex) 1 mg DAILY PO Last administered on 09/05/18 10:55; Admin Dose 1 MG; Start 09/01/18 at 12:00 Magnesium Chloride (Mag 64) 128 mg BID PO Last administered on 09/05/18 10:55; Admin Dose 128 MG; Start 09/04/18 at 10:00 Atorvastatin Calcium (Lipitor) 40 mg HS PO Last administered on 09/04/18at 20:48; Admin Dose 40 MG; Start 09/04/18 at 21:00 Ferrous Sulfate (Ferrous Sulfate (Ec)) 325 mg BID PO ; Start 09/05/18 at 21:00 MILA GUEVARA NP September 05, 2018 17:55
[2018-09-05 20:00] VITALS: BP 138/66; PULSE 72; RESP 18
--- NOTE | 2018-09-05 20:30 | DS ---
Date/Time of Note Date/Time of Note DATE: 09/05/18 TIME: 20:26 Discharge Summary Admission/Discharge Info Admit Date/Time August 21, 2018 at 18:31 Discharge Date/Time Discharge Diagnosis 1. Ischemic heart disease angina three-vessel coronary a. disease.s/p CABG x5 08/13/18: WINN to LAD, SVG to ramus sequence to obtuse marginal artery, SVG to PDA, SVG to left ventricular extension branch. Difficult case per Dr. Howell with poor targets.Vein harvesting and epiaortic scanning of the ascending aorta.CAD: s/p multiple prior PCIs. Cath 08/11/18 with multivessel disease. Now with elevated level of the troponin the second 1 is 1.1. We will get q. 6 hours x 2. The patient denies having the chest pain. 2. Hypertension with congestive heart failure diastolic- improved. 3. Diabetes mellitus type 2 blood sugar better controlled. Continue titration. 4. History of cholecystitis and pancreatitis. Elevation of liver function tests almost 10 to the normal continue follow-up will discuss Dr. Bill. 5. Acute on chronic kidney disease with baseline creatinine being 1.6 up to 3.5 came down to 2.05 yesterday and 1.95 today. Improved after hydration,now mildly dehydrated; 6. Dyslipidemia better controlled 7. History of nasal bleeding recurrent- stable. 8. Morbid obesity with snoring and apnea and daytime sleepiness 9. BPH with nocturia 10. Low back pain with radiculopathy 11. 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 Status post cataract ectomy 13. Diabetic nephropathy retinopathy and angiopathy and neuropathy. 14. Constipation- improved. 15. Grief reaction after the of her 16. Gastroesophageal reflux disease 17. Deep venous thrombosis of the left saphenous vein, 2-3 months ago;was on Eliquis 5 mg twice daily, stopped: since 08/11/2018. 18. Gastritis 19. COPD. Quit smoking 10years ago. 02sat now 95% with persistent cough. 20. History of nephrolithiasis. 21. Drop of hematocrit; s/p 2 units of prbc tx. today level is 25. 22. Drop of albumone and total protein and mild elevation of lft's. 21. Drop of hematocrit; s/p 2 units of prbc tx. further decline today; hematocrit being the 25 recheck tomorrow. 22. Elevation of alkaline phosphatase and mild elevation of lft's. Patient Condition: Guarded Hx of Present Illness CP, right leg pain, severe weakness with sob. Hospital Course The patient was admitted with the chest pain found to have severe coronary artery disease. Underwent angiography and CABG x5. Postsurgical. Was generally uneventful except for elevation of creatinine and being unable to extubate for couple of days. He was successfully extubated and currently creatinine level came down from 4-1.6.. No he is able to walk with the help of at least one person continues to have pain in the right leg shortness of breath. During hospitalization patient had 3 documented episodes of pancreatitis most probably gallstone because he has a multiple gallstones. Surgical consult was done decision was made not to perform the surgery now unless it is in the emergency. Blood sugars better controlled. He continues to have magnesium and iron problem along with the anemia. We will manage manage it as an outpatient. Home health care service was arranged. Home Meds Reported Medications Insulin Aspart* (Novolog Insulin Pen*) 100 Unit/Ml Soln, 0 SC .SLIDING SCALE AC, EA AC MEALS 08/11/18 Insulin Detemir (Levemir Flextouch) 100 Unit/1 Ml Insuln.pen, 25 UNIT SQ QHS, EA 08/11/18 Potassium Chloride* (K-Dur*) 10 Meq Tab.prt.sr, 10 MEQ PO DAILY, TAB 08/11/18 Furosemide* (Furosemide*) 40 Mg Tablet, 40 MG PO DAILY, TAB 08/11/18 Aspirin (Low Dose Aspirin) 81 Mg Tablet.dr, 81 MG PO DAILY, #30 TAB 08/11/18 Apixaban* (Eliquis*) 5 Mg Tablet, 5 MG PO BID, TAB 08/11/18 Clonidine Hcl* (Clonidine Hcl*) 0.1 Mg Tab, 0.1 MG PO DAILY PRN for ELEVATED BLOOD PRESSURE, TAB 08/11/18 Carvedilol* (Coreg CR*) 40 Mg Capsr, 40 MG PO DAILY, #30 CAP 08/11/18 Rosuvastatin Calcium* (Crestor*) 40 Mg Tablet, 40 MG PO QHS, #30 TAB 08/11/18 Amlodipine Besylate* (Norvasc*) 5 Mg Tablet, 5 MG PO DAILY, TAB 08/11/18 Follow-up Plan In [address] Castillo In [address] Glez Primary Care Provider Carroll Castillo MD Time spent on discharge: > 30 minutes Pending Labs Laboratory Tests Test 09/04/18 20:55 09/05/18 02:31 09/05/18 08:11 09/05/18 12:20 Bedside 221 155 134 120 Glucose mg/dL (70-220) mg/dL (70-220) mg/dL (70-220) mg/dL (70-220) Test 09/05/18 17:24 Bedside 172 Glucose mg/dL (70-220) CARROLL CASTILLO MD September 05, 2018 20:30
[2018-09-05] MEDS ORDERED: LUBI24CA7 PO (20:39)
[2018-09-05] MEDS ORDERED: Insulin Glargine SC (20:39)
[2018-09-05] MEDS ORDERED: BUME1TAB PO (20:39)
[2018-09-05] MEDS ORDERED: FER325 PO (20:39)
[2018-09-05] MEDS ORDERED: NITR0.4T32 SL (20:39)
[2018-09-05] MEDS ORDERED: GABA100C14 PO (20:39)
[2018-09-05] MEDS ORDERED: BISA10SU55 PR (20:39)
[2018-09-05] MEDS ORDERED: LACT20SO2 PO (20:39)
[2018-09-05] MEDS ORDERED: ACET325T33 PO (20:39)
[2018-09-05] MEDS ORDERED: ATOR40TA68 PO (20:39)
[2018-09-05] MEDS ORDERED: CLOP75TA28 NGT (20:39)
[2018-09-05] MEDS ORDERED: FAMO20TA18 PO (20:39)
[2018-09-05] MEDS ORDERED: POLY17PO6 GTB (20:39)
[2018-09-05] MEDS ORDERED: Docusate Sodium PO (20:39)
[2018-09-05] MEDS ORDERED: APRS IV (20:39)
[2018-09-05] MEDS: ATORVASTATIN 40 MG TAB PO SCH (21:15)
[2018-09-05] MEDS: FERROUS SULFATE (EC) 325 MG TAB PO SCH (21:15)
[2018-09-05] MEDS: INSULIN GLARGINE [LANTus] (100 UNITS/ML) SYG SC SCH (21:21)
[2018-09-06 02:00] VITALS: BP 146/71; PULSE 64; RESP 18
[2018-09-06] MEDS: LEVALBUTEROL (NEB) 1.25 MG/0.5 ML AMP HHN SCH ×2 (02:00→08:00)
[2018-09-06] MEDS: IPRATROPIUM (NEB) 0.5 MG/2.5 ML AMP HHN SCH ×2 (02:00→08:00)
[2018-09-06] MEDS: ACCU-CHEK XX SCH (02:00)
[2018-09-06 07:30] VITALS: BP 158/73; PULSE 63; RESP 18
[2018-09-06] MEDS: INSULIN ASPART [NOVOLOG] 3 ML PEN SC SCH ×2 (07:35→08:11)
[2018-09-06 08:10] VITALS: BP 139/69; PULSE 62; RESP 18
[2018-09-06] MEDS: FAMOTIDINE 20 MG TAB PO SCH (08:17)
[2018-09-06] MEDS: CLOPIDOGREL 75 MG TAB NGT SCH (08:17)
[2018-09-06] MEDS: APIXABAN 5 MG TABLET PO SCH (08:17)
[2018-09-06] MEDS: FERROUS SULFATE (EC) 325 MG TAB PO SCH (08:17)
[2018-09-06] MEDS: LUBIPROSTONE 24 MCG CAP PO SCH (08:18)
[2018-09-06] MEDS: ASCORBIC ACID 500 MG TAB NGT SCH (08:18)
[2018-09-06] MEDS: AMLODIPINE 5 MG TAB PO SCH (08:18)
[2018-09-06] MEDS: DOCUSATE SODIUM 250 MG CAP PO SCH (08:18)
[2018-09-06] MEDS: POLYETHYLENE GLYCOL 17 GM PACKET GTB SCH (08:19)
[2018-09-06] MEDS: GABAPENTIN 100 MG CAP PO SCH (08:19)
[2018-09-06] MEDS: BUMETANIDE 1 MG TAB PO SCH (08:19)
--- NOTE | 2018-09-06 08:22 | PN ---
Date/Time of Note Date/Time of Note DATE: 09/06/18 TIME: 08:19 Assessment/Plan VTE Prophylaxis Risk score (from Ns)>0 risk: 10 SCD applied (from Ns): No SCD contraindicated: other (on.) Pharmacological prophylaxis: apixaban Lines/Catheters IV Catheter Type (from [facility]): [place] [employer] line still needed: No Urinary Cath still in place: No Reason Cath still needed: urinary retention Assessment/Plan Hospital Course The patient was admitted with the chest pain found to have severe coronary artery disease. Underwent angiography and CABG x5. Postsurgical. Was generally uneventful except for elevation of creatinine and being unable to extubate for couple of days. He was successfully extubated and currently creatinine level came down from 4-1.6.. No he is able to walk with the help of at least one person continues to have pain in the right leg shortness of breath. During hospitalization patient had 3 documented episodes of pancreatitis most probably gallstone because he has a multiple gallstones. Surgical consult was done decision was made not to perform the surgery now unless it is in the emergency. Blood sugars better controlled. He continues to have magnesium and iron problem along with the anemia. We will manage manage it as an outpatient. Home health care service was arranged. Assessment/Plan 1. Ischemic heart disease angina three-vessel coronary a. disease.s/p CABG x5 08/13/18: WINN to LAD, SVG to ramus sequence to obtuse marginal artery, SVG to PDA, SVG to left ventricular extension branch. Difficult case per Dr. Howell with poor targets.Vein harvesting and epiaortic scanning of the ascending aorta.CAD: s/p multiple prior PCIs. Cath 08/11/18 with multivessel disease. Now with elevated level of the troponin the second 1 is 1.1. We will get q. 6 hours x 2. The patient denies having the chest pain. 2. Hypertension with congestive heart failure diastolic- improved. 3. Diabetes mellitus type 2 blood sugar better controlled. Continue titration. 4. History of cholecystitis and pancreatitis. Elevation of liver function tests almost 10 to the normal continue follow-up will discuss Dr. Bill. 5. Acute on chronic kidney disease with baseline creatinine being 1.6 up to 3.5 came down to 2.05 yesterday and 1.95 today. Improved after hydration,now mildly dehydrated; 6. Dyslipidemia better controlled 7. History of nasal bleeding recurrent- stable. 8. Morbid obesity with snoring and apnea and daytime sleepiness 9. BPH with nocturia 10. Low back pain with radiculopathy 11. 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 Status post cataract ectomy 13. Diabetic nephropathy retinopathy and angiopathy and neuropathy. 14. Constipation- improved. 15. Grief reaction after the of her 16. Gastroesophageal reflux disease 17. Deep venous thrombosis of the left saphenous vein, 2-3 months ago;was on Eliquis 5 mg twice daily, stopped: since 08/11/2018. 18. Gastritis 19. COPD. Quit smoking 10years ago. 02sat now 95% with persistent cough. 20. History of nephrolithiasis. 21. Drop of hematocrit; s/p 2 units of prbc tx. today level is 25. 22. Drop of albumone and total protein and mild elevation of lft's. 21. Drop of hematocrit; s/p 2 units of prbc tx. further decline today; hematocrit being the 25 recheck tomorrow. 22. Elevation of alkaline phosphatase and mild elevation of lft's. Result Diagram: 09/06/18 0652 09/06/18 0652 Results 24hrs Laboratory Tests Test 09/05/18 12:20 09/05/18 17:24 09/05/18 21:14 09/06/18 06:52 Bedside Glucose 120 172 118 White Blood Count 4.0 L Red Blood Count 3.22 L Hemoglobin 9.2 L Hematocrit 29.3 L Mean Corpuscular 91.0 Volume Mean Corpuscular 28.6 L Hemoglobin Mean Corpuscular 31.4 L Hemoglobin Concent Red Cell 14.9 H Distribution Width Platelet Count 180 Mean Platelet Volume 10.6 H Immature 0.300 Granulocytes % Neutrophils % 55.8 Lymphocytes % 25.6 Monocytes % 13.0 H Eosinophils % 4.8 Basophils % 0.5 Nucleated Red Blood 0.0 Cells % Immature 0.010 Granulocytes # Neutrophils # 2.2 Lymphocytes # 1.0 Monocytes # 0.5 Eosinophils # 0.2 Basophils # 0.0 Nucleated Red Blood 0.0 Cells # Sodium Level 138 Potassium Level 3.8 Chloride Level 101 Carbon Dioxide Level 33 H Anion Gap 4 L Blood Urea Nitrogen 17 Creatinine 1.45 H Est Glomerular Filtrat Rate mL/min Glucose Level 128 Calcium Level 8.5 Total Bilirubin 0.7 Direct Bilirubin 0.00 Indirect Bilirubin 0.7 Aspartate Amino 33 Transf (AST/SGOT) Alanine 61 Aminotransferase (AL T/SGPT) Alkaline Phosphatase 168 H Total Protein 6.2 Albumin 3.2 L Globulin 3.00 Albumin/Globulin 1.06 Ratio Test 09/06/18 08:09 Bedside Glucose 139 Subjective 24 Hr Interval Summary Free Text/Dictation Plan to discharge. Constitutional: improved Eyes: No no complaints, No pain, No discharge, No redness, No visual change, No other ENT: No no complaints, No bleeding, No pain, No congestion, No discharge, No dysphagia, No sore throat, No other Respiratory: cough, shortness of breath; No no complaints, No pain, No pleuritic pain, No sputum, No wheezing, No other Cardiovascular: edema; No no complaints, No chest pain, No lightheadedness, No orthopenea, No palpitations, No paroxysmal nocturnal dyspnea, No other Gastrointestinal: constipation, flatus, passing stool; No no complaints, No pain, No blood, No decreased appetite, No diarrhea, No nausea, No vomiting, No other Musculoskeletal: back pain, bone/joint pain; No no complaints, No neck pain, No restricted range of motion, No swelling, No other Skin: No no complaints, No bruising, No erythema, No laceration, No pruritis, No rash, No skin lesions, No other Neurologic: dizziness, headache; No no complaints, No confusion, No focal-weakness, No syncope, No seizure, No other Lymphatic: No no complaints, No adenopathy, No tender nodes, No lymphadema, No other Psychological: anxiety; No no complaints, No nl mood/affect, No confusion, No depression, No suicidal, No other Exam/Review of Systems Exam Vitals Vital Signs Date Temp Pulse Resp B/P (MAP) Pulse Ox O2 O2 Flow FiO2 Time Delivery Rate 09/06/18 98.1 64 18 146/71 18 Room Air 02:00 (96) 09/05/18 21 20:50 09/05/18 2.0 09:41 Intake and Output 09/05/18 09/05/18 09/06/18 1515:00 23:00 07:00 IntakeIntake Total 1000 ml 400 ml OutputOutput Total 1200 ml 550 ml BalanceBalance -200 ml -150 ml Constitutional: alert, oriented, well developed, distress, frail Psych: anxiety; No no complaints, No nl mood/affect, No confusion, No depression, No suicidal, No other Head: normocephalic, atraumatic; No lacerations, No hematomas, No other Eyes: EOMI, nl lids, nl sclera; No nl conjunctiva, No PERRL, No icteric, No fundi, disc, No other ENMT: nl external ears & nose, nl lips & teeth, nl nasal mucosa & septum; No mucosa pink and moist, No intubated, No tympanic membranes, No other Neck: supple, thyromegaly; No non-tender, No jvd, No bruits, No masses, No nuchal rigidity, No other Respiratory: clear to auscultation; No normal air movement, No congested cough, No crackles/rales, No diminished breath sounds, No intercostal retraction, No labored breathing, No respirations, No tactile fremitus, No wheezing, No other Cardiovascular: regular rate and rhythm; No nl pulses, No bruits, No diastolic murmur, No edema, No gallop, No irregular rhythm, No jugular venous distention (JVD), No murmurs/extra sounds, No rub, No systolic murmur, No S3, No S4, No other Gastrointestinal: soft, nl liver, spleen, non-tender, bowel sounds, distended; No ascites, No firm, No hepatomegaly, No mass, No rebound or guarding, No splenomegaly, No surgical scars, No tender, No other Genitourinary - Male: nl penis, nl scrotum; No CVA tenderness, No discharge, No other Musculoskeletal: joint tenderness; No nl extremities to inspection, No nl gait and stance, No muscle tone, No muscle weakness, No range of motion, No spine non-tender, No swelling, No other Extremities: normal pulses; No calf tenderness, No cyanosis, No clubbing, No edema, No pitting pedal edema, No palpable cord, No tenderness, No other 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: 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, nl mental status, numbness; No nl speech, No nl strength, No confused, No DTR's symmetric, No focal weakness, No lethargic, No reflexes, No unresponsive, No other Skin: nl turgor; No rash or lesions, No diaphoresis, No ecchymosis, No laceration, No pun cture, No other Lymph: No nl lymph nodes, No enlarged, No nontender, No other Results Results 24hrs Laboratory Tests Test 09/05/18 12:20 09/05/18 17:24 09/05/18 21:14 09/06/18 06:52 Bedside Glucose 120 172 118 White Blood Count 4.0 L Red Blood Count 3.22 L Hemoglobin 9.2 L Hematocrit 29.3 L Mean Corpuscular 91.0 Volume Mean Corpuscular 28.6 L Hemoglobin Mean Corpuscular 31.4 L Hemoglobin Concent Red Cell 14.9 H Distribution Width Platelet Count 180 Mean Platelet Volume 10.6 H Immature 0.300 Granulocytes % Neutrophils % 55.8 Lymphocytes % 25.6 Monocytes % 13.0 H Eosinophils % 4.8 Basophils % 0.5 Nucleated Red Blood 0.0 Cells % Immature 0.010 Granulocytes # Neutrophils # 2.2 Lymphocytes # 1.0 Monocytes # 0.5 Eosinophils # 0.2 Basophils # 0.0 Nucleated Red Blood 0.0 Cells # Sodium Level 138 Potassium Level 3.8 Chloride Level 101 Carbon Dioxide Level 33 H Anion Gap 4 L Blood Urea Nitrogen 17 Creatinine 1.45 H Est Glomerular Filtrat Rate mL/min Glucose Level 128 Calcium Level 8.5 Total Bilirubin 0.7 Direct Bilirubin 0.00 Indirect Bilirubin 0.7 Aspartate Amino 33 Transf (AST/SGOT) Alanine 61 Aminotransferase (AL T/SGPT) Alkaline Phosphatase 168 H Total Protein 6.2 Albumin 3.2 L Globulin 3.00 Albumin/Globulin 1.06 Ratio Test 09/06/18 08:09 Bedside Glucose 139 Medications Medication Current Medications Ondansetron HCl (Zofran Inj) 4 mg Q6H PRN IV NAUSEA AND/OR VOMITING; Start 08/21/18 at 21:08 Clopidogrel Bisulfate (plaVIX) 75 mg DAILY NGT Last administered on 09/05/18at 10:55; Admin Dose 75 MG; Start 08/21/18 at 21:08 Levalbuterol (Xopenex Neb) 1.25 mg Q6H RESP THERAPY HHN Last administered on 09/03/18at 20:22; Admin Dose 1.25 MG; Start 08/21/18 at 21:08 Ipratropium Onida (Atrovent 0.02% (Neb)) 0.5 mg Q6H RESP THERAPY HHN Last administered on 09/03/18at 20:22; Admin Dose 0.5 MG; Start 08/21/18 at 21:08 Diagnostic Test (Pha) (Accu-Chek) 1 ea 02 XX Last administered on 09/04/18at 02:24; Admin Dose 1 EA; Start 08/21/18 at 21:08 Miscellaneous Information 1 ea NOTE XX ; Start 08/21/18 at 21:08 Glucose (Glutose) 15 gm Q15M PRN PO DECREASED GLUCOSE; Start 08/21/18 at 21:08 Glucose (Glutose) 22.5 gm Q15M PRN PO DECREASED GLUCOSE; Start 08/21/18 at 21:08 Dextrose (D50w Syringe) 25 ml Q15M PRN IV DECREASED GLUCOSE; Start 08/21/18 at 21:08 Dextrose (D50w Syringe) 50 ml Q15M PRN IV DECREASED GLUCOSE; Start 08/21/18 at 21:08 Glucagon (Glucagen) 1 mg Q15M PRN IM DECREASED GLUCOSE; Start 08/21/18 at 21:08 Glucose (Glutose) 15 gm Q15M PRN BUCCAL DECREASED GLUCOSE; Start 08/21/18 at 21:08 Famotidine (Pepcid) 20 mg DAILY PO Last administered on 09/05/18at 10:55; Admin Dose 20 MG; Start 08/21/18 at 21:08 Insulin Aspart (Novolog Insulin Pen) 10 unit WITH MEALS SC Last administered on 09/05/18at 17:33; Admin Dose 10 UNIT; Start 08/21/18 at 21:08 Insulin Aspart (Novolog Insulin Pen) NOVOLOG *MODERATE* ALGORITHM WITH MEALS BEDTIME SC Last administered on 09/05/18at 17:32; Admin Dose 2 UNIT; Start 08/21/18 at 21:08 Oxycodone/ Acetaminophen (Endocet (10/ 325)) 1 tab Q4H PRN PO MODERATE PAIN LEVEL 4-6 Last administered on 08/31/18at 14:29; Admin Dose 1 TAB; Start 08/21/18 at 21:08 Hydralazine HCl (Apresoline) 10 mg Q4H PRN IV SBP >150; Start 08/21/18 at 21:30 Acetaminophen (Tylenol Tab) 650 mg Q3H PRN PO ELEVATED TEMPERATURE Last administered on 08/26/18 15:46; Admin Dose 650 MG; Start 08/21/18 at 22:00 Ascorbic Acid (Vitamin C) 500 mg TID NGT Last administered on 09/05/18 21:15; Admin Dose 500 MG; Start 08/21/18 at 21:49 Carvedilol (Coreg) 12.5 mg BID PO Last administered on 09/05/18 21:16; Admin Dose 12.5 MG; Start 08/21/18 at 21:51 Docusate Sodium (Colace) 250 mg BID PO Last administered on 09/05/18 21:15; Admin Dose 250 MG; Start 08/21/18 at 21:51 Amlodipine Besylate (Norvasc) 5 mg DAILY PO Last administered on 09/05/18 10:56; Admin Dose 5 MG; Start 08/22/18 at 09:00 Magnesium Hydroxide (Milk Of Mag) 30 ml BID PRN PO CONSTIPATION Last administered on 09/01/18 14:48; Admin Dose 30 ML; Start 08/22/18 at 11:00 Lactulose (Enulose) 20 gm DAILY PRN PO CONSTIPATION Last administered on 9at 12:44; Admin Dose 20 GM; Start 08/22/18 at 11:00 Bisacodyl (Dulcolax Supp) 10 mg DAILY PRN [place] CONSTIPATION; Start 08/22/18 at 11:00 Morphine Sulfate (morphine) 1 mg Q6H PRN IV SEVERE PAIN LEVEL 7-10; Start 08/23/18 at 07:00 Nitroglycerin (Nitroglycerin (Sl Tab) 0.4 Mg) 1 tab Q5M PRN SL ANGINA; Start 08/24/18 at 11:30 Gabapentin (Neurontin) 100 mg TID PO Last administered on 09/05/18 21:15; Ad min Dose 100 MG; Start 08/25/18 at 13:00 Polyethylene Glycol (Miralax) 17 gm TID PRN PO CONSTIPATION; Start 08/25/18 at 12:00 Insulin Glargine (Lantus) 28 units 2100 SC Last administered on 09/05/18 21:21; Admin Dose 28 UNITS; Start 08/26/18 at 21:00 Hydromorphone HCl (Dilaudid) 1 mg Q3 PRN IV SEVERE PAIN LEVEL 7-10 Last administered on 09/04/18 17:44; Admin Dose 1 MG; Start 08/27/18 at 13:00 Apixaban (Eliquis) 5 mg BID PO Last administered on 09/05/18 21:15; Admin Dose 5 MG; Start 08/29/18 at 11:00 Polysaccharide Iron Complex (Niferex-150) 1 cap BID PO Last administered on 09/05/18 21:15; Admin Dose 1 CAP; Start 09/01/18 at 09:00 Lubiprostone (Amitiza) 24 mcg BID PO Last administered on 09/05/18 21:15; Admin Dose 24 MCG; Start 09/01/18 at 21:00 Polyethylene Glycol (Miralax) 17 gm DAILY GTB Last administered on 09/05/18 10:55; Admin Dose 17 GM; Start 09/02/18 at 09:00 Bumetanide (Bumex) 1 mg DAILY PO Last administered on 09/05/18 10:55; Admin Dose 1 MG; Start 09/01/18 at 12:00 Magnesium Chloride (Mag 64) 128 mg BID PO Last administered on 09/05/18 21:15; Admin Dose 128 MG; Start 09/04/18 at 10:00 Atorvastatin Calcium (Lipitor) 40 mg HS PO Last administered on 09/05/18 21:15; Admin Dose 40 MG; Start 09/04/18 at 21:00 Ferrous Sulfate (Ferrous Sulfate (Ec)) 325 mg BID PO Last administered on 09/05/18 21:15; Admin Dose 325 MG; Start 09/05/18 at 21:00 NERIS BROTHERS MD September 06, 2018 08:22
--- NOTE | 2018-09-06 08:25 | DS ---
Date/Time of Note Date/Time of Note DATE: 09/06/18 TIME: 08:23 Discharge Summary Admission/Discharge Info Admit Date/Time August 21, 2018 at 18:31 Discharge Date/Time Discharge Diagnosis 1. Critical illness myopathy. 2Coronary artery disease status post 5-vessel CABG. 3. Status post acute respiratory failure, COPD 4. Acute on chronic kidney disease. 5. Lumbar radiculopathy with right lower extremity symptoms. 6. Oropharyngeal dysphagia on mechanical soft diet, improved 7. Diabetes mellitus type 2. 8. Hypertension. 9. Hyperlipidemia. 10. Osteoarthritis affecting multiple joints, including bilateral knees. 11. Diabetic retinopathy. 12. Anemia of chronic disease. 13. Benign prostatic hypertrophy. 14. Improvements in self-care and mobility. Patient Condition: Good Hospital Course The patient was admitted for comprehensive interdisciplinary rehabilitation and made steady functional gains from a Max level to a S/CT level for self care tasks and mobility including ambulating over 150 feet with the use of a FWW. Patient is being discharged home with the recommendation of home health PT, OT and RN follow up. The DC meds are per the medication reconciliation sheet. The discharge equipment recommendations include: FWW, BSC, shower chair. The patient will follow up with PMD upon DC. Home Meds Active Scripts [Insulin Glargine] 100 UNITS/ML SOLN No Conflict Check, 28 UNITS SC 2100 for 30 Days, #10 U Prov:CARROLL BROTHERS MD 09/05/18 Polyethylene Glycol* (Miralax*) 17 Gm Powd.pack, 17 GM GTB DAILY for 30 Days, #1 Prov:CARROLL BROTHERS MD 09/05/18 Lubiprostone* (Amitiza*) 24 Mcg Capsule, 24 MCG PO BID for 30 Days, #30 CAP Prov:CARROLL BROTHERS MD 09/05/18 Famotidine* (Famotidine*) 20 Mg Tablet, 20 MG PO DAILY for 30 Days, #60 TAB Prov:CARROLL BROTHERS MD 09/05/18 [Docusate Sodium] 250 MG CAP No Conflict Check, 250 MG PO BID for 30 Days, #60 Prov:CARROLL BROTHERS MD 09/05/18 Bisacodyl (Dulcolax) 10 Mg Supp.rect, 10 MG CO DAILY PRN for CONSTIPATION for 30 Days, #60 SUPP.RECT Prov:CARROLL BROTHERS MD 09/05/18 Lactulose* (Lactulose*) 20 Gm/30 Ml Solution, 20 GM PO DAILY PRN for CONSTIPATION for 30 Days, #30 Prov:CARROLL BROTHERS MD 09/05/18 Bumetanide* (Bumetanide*) 1 Mg Tablet, 1 MG PO DAILY for 30 Days, #30 TAB Prov:CARROLL BROTHERS MD 09/05/18 Gabapentin* (Gabapentin*) 100 Mg Capsule, 100 MG PO TID for 30 Days, #90 CAP Prov:CARROLL BROTHERS MD 09/05/18 Acetaminophen* (Tylenol*) 325 Mg Tablet, 650 MG PO Q3H PRN for ELEVATED TEMPERATURE for 30 Days, #90 TAB Prov:CARROLL BROTHERS MD 09/05/18 Nitroglycerin* (Nitroglycerin* SL) 0.4 Mg Tab.subl, 1 TAB SL Q5M PRN for ANGINA for 30 Days, #90 Prov:CARROLL BROTHERS MD 09/05/18 Hydralazine Hcl* (Apresoline* Pediatric Oral) 1 Mg/Ml (Compounded) Oral Solution, 10 MG IV Q4H PRN for SBP >150 for 30 Days, #60 Prov:CARROLL BROTHERS MD 09/05/18 Atorvastatin* (Atorvastatin*) 40 Mg Tablet, 80 MG PO HS for 30 Days, #30 TAB Prov:CARROLL BROTHERS MD 09/05/18 Ferrous Sulfate* (Ferrous Sulfate*) 325 Mg Tabec, 325 MG PO BID for 30 Days, #60 TAB Prov:CARROLL BROTHERS MD 09/05/18 Clopidogrel Bisulfate (Clopidogrel) 75 Mg Tablet, 75 MG NGT DAILY for 30 Days, #30 TAB Prov:CARROLL BROTHERS MD 09/05/18 Reported Medications Insulin Aspart* (Novolog Insulin Pen*) 100 Unit/Ml Soln, 0 SC .SLIDING SCALE AC, EA AC MEALS 08/11/18 Insulin Detemir (Levemir Flextouch) 100 Unit/1 Ml Insuln.pen, 25 UNIT SQ QHS, EA 08/11/18 Potassium Chloride* (K-Dur*) 10 Meq Tab.prt.sr, 10 MEQ PO DAILY, TAB 08/11/18 Furosemide* (Furosemide*) 40 Mg Tablet, 40 MG PO DAILY, TAB 08/11/18 Aspirin (Low Dose Aspirin) 81 Mg Tablet.dr, 81 MG PO DAILY, #30 TAB 08/11/18 Apixaban* (Eliquis*) 5 Mg Tablet, 5 MG PO BID, TAB 08/11/18 Clonidine Hcl* (Clonidine Hcl*) 0.1 Mg Tab, 0.1 MG PO DAILY PRN for ELEVATED BLOOD PRESSURE, TAB 08/11/18 Carvedilol* (Coreg CR*) 40 Mg Capsr, 40 MG PO DAILY, #30 CAP 08/11/18 Rosuvastatin Calcium* (Crestor*) 40 Mg Tablet, 40 MG PO QHS, #30 TAB 08/11/18 Amlodipine Besylate* (Norvasc*) 5 Mg Tablet, 5 MG PO DAILY, TAB 08/11/18 Follow-up Plan In [address] Brothers In [address] Glez Primary Care Provider Carroll Brothers MD Pending Labs Laboratory Tests Test 09/05/18 12:20 09/05/18 17:24 09/05/18 21:14 09/06/18 06:52 Bedside 120 172 118 Glucose mg/dL (70-220) mg/dL (70-220) mg/dL (70-220) White Blood 4.0 Count 10^3/ul (4.8-1 0.8) Red Blood 3.22 Count 10^6/ul (4.70- 6.10) Hemoglobin 9.2 g/dl (14.0-18. 0) Hematocrit 29.3 % (42.0-52.0) Mean 91.0 Corpuscular fl (82.0-101.0 Volume ) Mean 28.6 Corpuscular pg (29.0-33.0) Hemoglobin Mean 31.4 Corpuscular g/dl (32.0-37. Hemoglobin Conc 0) ent Red Cell 14.9 Distribution % (11.5-14.5) Width Platelet Count 180 10^3/UL (140-4 15) Mean Platelet 10.6 Volume fl (7.4-10.4) Immature 0.300 Granulocytes % % (0.001-0.429 ) Neutrophils % 55.8 % (39.0-77.0) Lymphocytes % 25.6 % (15.0-51.0) Monocytes % 13.0 % (0.0-11.0) Eosinophils % 4.8 % (0.0-7.0) Basophils % 0.5 % (0.0-2.0) Nucleated Red 0.0 Blood Cells % /100WBC (0.0-0 .0) Immature 0.010 Granulocytes # 10^3/ul (0.0-0 .031) Neutrophils # 2.2 10^3/ul (1.6-7 .5) Lymphocytes # 1.0 10^3/ul (0.8-2 .9) Monocytes # 0.5 10^3/ul (0.3-0 .9) Eosinophils # 0.2 10^3/ul (0.0-0 .5) Basophils # 0.0 10^3/ul (0.0-0 .1) Nucleated Red 0.0 Blood Cells # 10^3/ul (0.0-0 .0) Sodium Level 138 mmol/L (135-14 4) Potassium 3.8 Level mmol/L (3.5-5. 1) Chloride Level 101 mmol/L (97-110 ) Carbon Dioxide 33 Level mmol/L (21-31) Anion Gap 4 (5-13) Blood Urea 17 Nitrogen mg/dl (7-20) Creatinine 1.45 mg/dl (0.61-1. 24) Est Glomerular mL/min (>60) Filtrat Rate mL/min Glucose Level 128 mg/dl (70-220) Calcium Level 8.5 mg/dl (8.4-10. 2) Total 0.7 Bilirubin mg/dl (0.2-1.3 ) Direct 0.00 Bilirubin mg/dl (0.00-0. 20) Indirect 0.7 Bilirubin mg/dl (0-1.1) Aspartate Amino 33 Transf (AST/SGO IU/L (15-46) T) Alanine 61 Aminotransferas IU/L (13-69) e (ALT/SGPT) Alkaline 168 Phosphatase IU/L (42-121) Total Protein 6.2 g/dl (6.1-8.1) Albumin 3.2 g/dl (3.3-4.9) Globulin 3.00 g/dl (1.3-3.2) Albumin/Globuli 1.06 n Ratio Test 09/06/18 08:09 Bedside 139 Glucose mg/dL (70-220) YARIEL MARIE MD September 06, 2018 08:25
[2018-09-06] MEDS: MAGNESIUM CHLORIDE (SR) 64 MG TAB PO SCH (09:00)
[2018-09-06] MEDS: POLYSACCHARIDE IRON COMPLEX CAP PO SCH (10:34)
== END 2018-09-06 12:30 | disposition home health service (06) | DRG 91 ==
LOC: VRC 18:31
PROVIDERS: ADMIT Physical Medicine & Rehabilitation; ATTEND Family Medicine
PROC: F07Z5ZZ Bed Mobility Treatment (ICD-10-PCS; principal; 2018-08-21)
PROC: F08Z2ZZ Grooming/Personal Hygiene Treatment (ICD-10-PCS; 2018-08-21)
PROC: 3E0F7GC Introduction of Other Therapeutic Substance into Respiratory Tract, Via Natural or Artificial Opening (ICD-10-PCS; 2018-08-22)
DX: G72.81 Critical illness myopathy (principal); J96.00 Acute respiratory failure, unspecified whether with hypoxia or hypercapnia; K85.90 Acute pancreatitis without necrosis or infection, unspecified; N17.9 Acute kidney failure, unspecified; I82.4Z2 Acute embolism and thrombosis of unspecified deep veins of left distal lower extremity; Z68.41 Body mass index [BMI] 40.0-44.9, adult; E11.22 Type 2 diabetes mellitus with diabetic chronic kidney disease; I12.9 Hypertensive chronic kidney disease with stage 1 through stage 4 chronic kidney disease, or unspecified chronic kidney disease; N18.9 Chronic kidney disease, unspecified; M54.16 Radiculopathy, lumbar region; R13.12 Dysphagia, oropharyngeal phase; J44.9 Chronic obstructive pulmonary disease, unspecified; E78.5 Hyperlipidemia, unspecified; M19.91 Primary osteoarthritis, unspecified site; E11.319 Type 2 diabetes mellitus with unspecified diabetic retinopathy without macular edema; D63.8 Anemia in other chronic diseases classified elsewhere; N40.0 Benign prostatic hyperplasia without lower urinary tract symptoms; Z95.1 Presence of aortocoronary bypass graft; I25.10 Atherosclerotic heart disease of native coronary artery without angina pectoris; M17.0 Bilateral primary osteoarthritis of knee; E11.40 Type 2 diabetes mellitus with diabetic neuropathy, unspecified; E11.51 Type 2 diabetes mellitus with diabetic peripheral angiopathy without gangrene; K29.70 Gastritis, unspecified, without bleeding; E66.01 Morbid (severe) obesity due to excess calories; R74.0 Nonspecific elevation of levels of transaminase and lactic acid dehydrogenase [LDH]; K76.0 Fatty (change of) liver, not elsewhere classified; D50.9 Iron deficiency anemia, unspecified; Z79.82 Long term (current) use of aspirin; Z79.4 Long term (current) use of insulin; F06.31 Mood disorder due to known physiological condition with depressive features; F06.8 Other specified mental disorders due to known physiological condition; Z87.891 Personal history of nicotine dependence
CPT/HCPCS: 71045; 71046; 74018; 74176; 76700; 80053; 80061; 81003; 82150; 82550; 82553; 82962; 83540; 83690; 83735; 84484; 85025; 87081; 87086; 92526; 92610; 93005; 94640; 94664; 97110; 97112; 97116; 97150; 97163; 97166; 97530; 97535; J1170; J1815; J1940; J2916; J3475; J7042; J7121; P9047